=== PATIENT | female | born 1950 | race Caucasian/White ===

== ENCOUNTER 2019-06-10 16:07 | Inpatient (IN) | payer MEDICARE ==
[2019-06-10] MEDS ORDERED: SODIUM CHLORIDE 0.9% 500 ML 500 ML IV STA (16:31)
[2019-06-10] MEDS ORDERED: SODIUM CHLORIDE 0.9% 1,000 ML IV STA (16:31)
[2019-06-10] MEDS ORDERED: MORPHINE SULFATE 4 MG/ML SYRINGE IV STA (16:31)
[2019-06-10] MEDS ORDERED: PANTOPRAZOLE 40 MG/10 ML VIAL IVP STA (16:31)
[2019-06-10] MEDS ORDERED: ONDANSETRON 4 MG/2 ML VIAL IVP STA (16:31)
[2019-06-10 17:02] LABS: Basophils % (A) 1 %; Eosinophils # (A) 0.1 k/uL (0-0.7); Eosinophils % (A) 1 %; HGB 14.2 gm/dL (11.4-16.0); Lymphocytes # (A) 1.1 k/uL (1.0-4.8); Lymphocytes % (A) 24 %; MCH 36.5 pg (25.0-35.0); MCHC 35.5 g/dL (31.0-37.0); MCV 102.8 fL (80.0-100.0); Macrocytosis Slight; Mean Platelet Volume 7.2; Monocytes # (A) 0.4 k/uL (0-1.0); Monocytes % (A) 8 %; Neutrophils # (A) 3.1 k/uL (1.3-7.7); Neutrophils % (A) 63 %; Platelet Count 178 k/uL (150-450); RBC 3.89 m/uL (3.80-5.40); RDW 14.1 % (11.5-15.5); WBC 4.8 k/uL (3.8-10.6)
[2019-06-10 17:14] LABS: ALT 75 U/L (9-52); AST 150 U/L (14-36); African American GFR (CKD) >90 (>60 ml/min/1.73 sqM); Albumin 4.9 g/dL (3.5-5.0); Alkaline Phosphatase 78 U/L (38-126); Amylase 82 U/L (30-110); Anion Gap 18 mmol/L; Blood Urea Nitrogen 3 mg/dL (7-17); Calcium 9.7 mg/dL (8.4-10.2); Carbon Dioxide 24 mmol/L (22-30); Chloride 93 mmol/L (98-107); Creatine Kinase 78 U/L (30-135); Glucose 106 mg/dL (74-99); Non-African American GFR(CKD) >90 (>60 ml/min/1.73 sqM); Potassium 4.2 mmol/L (3.5-5.1); Sodium 135 mmol/L (137-145); Total Bilirubin 0.9 mg/dL (0.2-1.3); Total Protein 8.2 g/dL (6.3-8.2)
--- NOTE | 2019-06-10 17:14 | ED ---
Abdominal Pain HPI - General Chief Complaint: Abdominal Pain Stated Complaint: Abd pain Time Seen by Provider: 06/10/19 16:31 Source: patient Mode of arrival: ambulatory Limitations: no limitations - History of Present Illness Initial Comments: This is a 68-year-old female the ER for evaluation sent in to ER for evaluation further by her primary care. Patient's but in with abdominal pain. No history of abdominal surgery, she does have history of pancreatitis. Patient's complaining of severe anterior abdominal pain with nausea no vomiting. No bowel movements today denies fever. Feels like she has significant abdominal bloating, diffuse tenderness all over her abdomen. Does not quite feel like prior pancreatitis. No significant history of colonoscopy. No current diarrhea MD Complaint: abdominal pain -: hour(s) Location: diffuse Radiation: epigastric, suprapubic Migration to: no migration Severity: severe Severity scale (1-10): 8 Quality: cramping, stabbing, aching Consistency: constant Improves With: eating, bowel movement Worsens With: eating, bowel movement Context: recent surgery/procedure Associated Symptoms: denies other symptoms, nausea, vomiting - Related Data Home Medications Medication Instructions Recorded Confirmed Albuterol Sulfate [Proair Hfa] 1 - 2 puff INHALATION RT-Q6H PRN 06/10/19 06/10/19 Lisinopril 20 mg PO DAILY 06/10/19 06/10/19 Metoprolol Tartrate 25 mg PO HS 06/10/19 06/10/19 Milk Thistle 150 mg PO DAILY 06/10/19 06/10/19 [place]-3 Fatty Acids/Fish Oil [Fish 1 cap PO BID 06/10/19 06/10/19 Oil 1,000 mg Softgel] Omeprazole 20 mg PO DAILY PRN 06/10/19 06/10/19 Simvastatin [Zocor] 40 mg PO HS 06/10/19 06/10/19 Allergies Allergy/AdvReac Type Severity Reaction Status Date / Time No Known Allergies Allergy Verified 06/10/19 16:51 Review of Systems ROS Statement: Those systems with pertinent positive or pertinent negative responses have been documented in the HPI. ROS Other: All systems not noted in ROS Statement are negative. Past Medical History Past Medical History: Hyperlipidemia, Hypertension History of Any Multi-Drug Resistant Organisms: None Reported Past Surgical History: Hysterectomy, Tubal Ligation Past Psychological History: No Psychological Hx Reported Smoking Status: Former smoker Past Alcohol Use History: Occasional Past Drug Use History: None Reported General Exam Limitations: no limitations General appearance: alert, in no apparent distress Head exam: Present: atraumatic, normocephalic, normal inspection Eye exam: Present: normal appearance, PERRL, EOMI. Absent: scleral icterus, conjunctival injection, periorbital swelling ENT exam: Present: normal exam, mucous membranes moist Neck exam: Present: normal inspection. Absent: tenderness, meningismus, lymphadenopathy Respiratory exam: Present: normal lung sounds bilaterally. Absent: respiratory distress, wheezes, rales, rhonchi, stridor Cardiovascular Exam: Present: regular rate, normal rhythm, normal heart sounds. Absent: systolic murmur, diastolic murmur, rubs, gallop, clicks GI/Abdominal exam: Present: soft, normal bowel sounds. Absent: distended, tenderness, guarding, rebound, rigid Extremities exam: Present: normal inspection, full ROM, normal capillary refill. Absent: tenderness, pedal edema, joint swelling, calf tenderness Back exam: Present: normal inspection Neurological exam: Present: alert, oriented X3, CN II-XII intact Psychiatric exam: Present: normal affect, normal mood Skin exam: Present: warm, dry, intact, normal color. Absent: rash Course Vital Signs 06/10/19 06/10/19 16:16 17:09 Temperature 98.8 F Pulse Rate 81 80 Respiratory 18 18 Rate Blood Pressure 154/89 150/76 O2 Sat by Pulse 96 96 Oximetry - Reevaluation(s) Reevaluation #1: 06/10/19 17:14 Medical records reviewed Reevaluation #2: 06/10/19 19:13 Patient still complaining of abdominal pain Medical Decision Making - Medical Decision Making 68 female the ER history percutaneous coming in for abdominal pain, CT imaging does show positive edema pancreatic head, mild pancreatitis. Patient will be admitted for hydration and by mouth - Lab Data Result diagrams: 06/10/19 16:46 06/10/19 16:46 Lab Results 06/10/19 06/10/19 06/10/19 Range/Units 16:46 16:46 16:46 WBC 4.8 (3.8-10.6) k/uL RBC 3.89 (3.80-5.40) m/uL Hgb 14.2 (11.4-16.0) gm/dL Hct 40.0 (34.0-46.0) % MCV 102.8 H (80.0-100.0) fL MCH 36.5 H (25.0-35.0) pg MCHC 35.5 (31.0-37.0) g/dL RDW 14.1 (11.5-15.5) % Plt Count 178 (150-450) k/uL Neutrophils % 63 % Lymphocytes % 24 % Monocytes % 8 % Eosinophils % 1 % Basophils % 1 % Neutrophils # 3.1 (1.3-7.7) k/uL Lymphocytes # 1.1 (1.0-4.8) k/uL Monocytes # 0.4 (0-1.0) k/uL Eosinophils # 0.1 (0-0.7) k/uL Basophils # 0.0 (0-0.2) k/uL Macrocytosis Slight Sodium 135 L (137-145) mmol/L Potassium 4.2 (3.5-5.1) mmol/L Chloride 93 L (98-107) mmol/L Carbon Dioxide 24 (22-30) mmol/L Anion Gap 18 mmol/L BUN 3 L (7-17) mg/dL Creatinine 0.59 (0.52-1.04) mg/dL Est GFR (CKD-EPI)AfAm >90 (>60 ml/min/1.73 sqM) Est GFR (CKD-EPI)NonAf >90 (>60 ml/min/1.73 sqM) Glucose 106 H (74-99) mg/dL Plasma Lactic Acid Julio Cesar 2.1 H* (0.7-2.0) mmol/L Calcium 9.7 (8.4-10.2) mg/dL Total Bilirubin 0.9 (0.2-1.3) mg/dL AST 150 H (14-36) U/L ALT 75 H (9-52) U/L Alkaline Phosphatase 78 (38-126) U/L Creatine Kinase 78 (30-135) U/L Troponin I (0.000-0.034) ng/mL Total Protein 8.2 (6.3-8.2) g/dL Albumin 4.9 (3.5-5.0) g/dL Amylase 82 (30-110) U/L Lipase 280 (23-300) U/L Urine Color Urine Appearance (Clear) Urine pH (5.0-8.0) Ur Specific [place] (1.001-1.035) Urine Protein (Negative) Urine Glucose (UA) (Negative) Urine Ketones (Negative) Urine Blood (Negative) Urine Nitrite (Negative) Urine Bilirubin (Negative) Urine Urobilinogen (<2.0) mg/dL Ur Leukocyte Esterase (Negative) 06/10/19 06/10/19 Range/Units 16:46 17:54 WBC (3.8-10.6) k/uL RBC (3.80-5.40) m/uL Hgb (11.4-16.0) gm/dL Hct (34.0-46.0) % MCV (80.0-100.0) fL MCH (25.0-35.0) pg MCHC (31.0-37.0) g/dL RDW (11.5-15.5) % Plt Count (150-450) k/uL Neutrophils % % Lymphocytes % % Monocytes % % Eosinophils % % Basophils % % Neutrophils # (1.3-7.7) k/uL Lymphocytes # (1.0-4.8) k/uL Monocytes # (0-1.0) k/uL Eosinophils # (0-0.7) k/uL Basophils # (0-0.2) k/uL Macrocytosis Sodium (137-145) mmol/L Potassium (3.5-5.1) mmol/L Chloride (98-107) mmol/L Carbon Dioxide (22-30) mmol/L Anion Gap mmol/L BUN (7-17) mg/dL Creatinine (0.52-1.04) mg/dL Est GFR (CKD-EPI)AfAm (>60 ml/min/1.73 sqM) Est GFR (CKD-EPI)NonAf (>60 ml/min/1.73 sqM) Glucose (74-99) mg/dL Plasma Lactic Acid Julio Cesar (0.7-2.0) mmol/L Calcium (8.4-10.2) mg/dL Total Bilirubin (0.2-1.3) mg/dL AST (14-36) U/L ALT (9-52) U/L Alkaline Phosphatase (38-126) U/L Creatine Kinase (30-135) U/L Troponin I <0.012 (0.000-0.034) ng/mL Total Protein (6.3-8.2) g/dL Albumin (3.5-5.0) g/dL Amylase (30-110) U/L Lipase (23-300) U/L Urine Color Colorless Urine Appearance Clear (Clear) Urine pH 6.0 (5.0-8.0) Ur Specific [place] 1.008 (1.001-1.035) Urine Protein Negative (Negative) Urine Glucose (UA) Negative (Negative) Urine Ketones Negative (Negative) Urine Blood Negative (Negative) Urine Nitrite Negative (Negative) Urine Bilirubin Negative (Negative) Urine Urobilinogen <2.0 (<2.0) mg/dL Ur Leukocyte Esterase Negative (Negative) - Radiology Data Radiology results: report reviewed (CT abdomen and pelvis is consistent for pancreatitis), image reviewed Disposition Clinical Impression: Pancreatitis, Abdominal pain Disposition: ADMITTED IP TO THIS [facility] Condition: Good Is patient prescribed a controlled substance at d/c from ED?: No Referrals: Pearl Stoner MD [Primary Care Provider] - 1-2 days
--- NOTE | 2019-06-10 17:39 | CT ---
EXAMINATION TYPE: CT abdomen pelvis w con DATE OF EXAM: 06/10/2019 COMPARISON: None HISTORY: Generalized pain with fever CT DLP: 824.2 mGycm Automated exposure control for dose reduction was used. TECHNIQUE: Helical acquisition of images was performed from the lung bases through the pelvis. CONTRAST: Performed without Oral Contrast and with IV Contrast, patient injected with 100 mL of Isovue 300. FINDINGS: Lung bases are clear. There is no pleural effusion. Heart size is normal. There is no pericardial eff usion. Stomach appears normal. Spleen appears normal. There is some fat stranding around the pancreatic head anteriorly. There is 17 mm hypodense focus superior right lobe of the liver. There is 3 cm hypodense focus superior posterior right lobe of the liver. The bile ducts are not dilated. Gallbladder appear s normal. There is no adrenal mass. Kidneys show satisfactory contrast opacification. There is no hydronephrosi s. Ureters are not dilated. There is 7 mm cortical cyst anterior left kidney. There are numerous sigmoid diverticula. Bladder distends smoothly. There is no inguinal hernia. There is no free fluid in the pelvis. Appendix is not definitely seen. There is no sign of thickened appen qamar. There is no evidence of a bowel obstruction. There is no ascites or free air. There are spondylo tic changes in the lumbar spine with disc space narrowing. There is no compression fracture. There is thoracolumbar levoscoliosis. Bony pelvis appears intact. IMPRESSION: THERE IS MILD EDEMA AROUND THE ANTERIOR ASPECT OF THE PANCREATIC HEAD. THIS COULD RELATE TO TUMOR OR PANCREATITIS. 2 HYPODENSE LIVER LESIONS HAVE LOW DENSITY OF 0 EQUAL TO WATER. THESE COULD BE LIVER ABSCESSES. HEPAT IC METASTATIC DISEASE NOT EXCLUDED. SIGMOID DIVERTICULOSIS WITHOUT DIVERTICULITIS.
[2019-06-10 18:19] LABS: Appearance,Urine Clear (Clear); Bilirubin,Urine Negative (Negative); Blood,Urine Negative (Negative); Color,Urine Colorless; Glucose,Urine (UA) Negative (Negative); Ketones,Urine Negative (Negative); Leukocyte Esterase,Urine Negative (Negative); Nitrite,Urine Negative (Negative); Protein,Urine Negative (Negative); Specific Gravity,Urine 1.008 (1.001-1.035); Urobilinogen,Urine <2.0 mg/dL (<2.0)
[2019-06-10] MEDS ORDERED: SODIUM CHLORIDE 0.9% 1,000 ML IV ONE (19:12)
[2019-06-10] MEDS ORDERED: ALBUTEROL NEBULIZED 2.5 MG/3 ML INHALATION PRN (22:06)
[2019-06-10] MEDS ORDERED: HYDROmorphone 0.5 MG/0.5 ML SYRINGE IVP PRN (22:10)
[2019-06-10] MEDS ORDERED: ONDANSETRON 4 MG/2 ML VIAL IVP PRN (22:11)
[2019-06-10] MEDS: SODIUM CHLORIDE 0.9% 1,000 ML IV SCH (22:21)
[2019-06-11] MEDS: SODIUM CHLORIDE 0.9% 1,000 ML IV SCH ×2 (07:52→20:01)
[2019-06-11] MEDS: LISINOPRIL 20 MG TAB PO SCH (07:53)
[2019-06-11] MEDS ORDERED: NON FORMULARY DRUG (Omega-3 Fatty Acids/Fish Oil [Fish Oil 1,000 Mg Softgel] 1 CAP) PO SCH (09:00)
[2019-06-11] MEDS ORDERED: PANTOPRAZOLE 40 MG TABLET PO PRN (09:00)
[2019-06-11] MEDS ORDERED: MILK THISTLE 1000 MG PO SCH (09:00)
[2019-06-11 09:08] LABS: ALT 63 U/L (9-52); AST 111 U/L (14-36); African American GFR (CKD) >90 (>60 ml/min/1.73 sqM); Albumin 3.6 g/dL (3.5-5.0); Alkaline Phosphatase 62 U/L (38-126); Anion Gap 9 mmol/L; Blood Urea Nitrogen 3 mg/dL (7-17); Calcium 8.8 mg/dL (8.4-10.2); Carbon Dioxide 28 mmol/L (22-30); Chloride 100 mmol/L (98-107); Glucose 89 mg/dL (74-99); Non-African American GFR(CKD) >90 (>60 ml/min/1.73 sqM); Potassium 4.5 mmol/L (3.5-5.1); Sodium 137 mmol/L (137-145); Total Bilirubin 1.2 mg/dL (0.2-1.3); Total Protein 6.4 g/dL (6.3-8.2)
[2019-06-11 10:02] VITALS: BMI 25.7
[2019-06-11] MEDS ORDERED: ACETAMINOPHEN TAB 325 MG TAB PO PRN (10:06)
[2019-06-11] MEDS ORDERED: traMADol 50 MG TAB PO PRN (11:50)
--- NOTE | 2019-06-11 11:58 | P.HPIM ---
History of Present Illness 68-year-old pleasant female came in with compensative abdominal pain in the epigastric area. Initially started in the lower abdomen sharp in nature went up patient does have tenderness in epigastric area patient the pain yesterday was burning sensation on and off pain severe 10/10 in severity but presently her pain is better. Patient was on morphine which I'll switch to tramadol. Patient had a CAT scan of the abdomen which showed some edema of the pancreas patient is admitted for pancreatitis although lipase and amylase are essentially within normal notes patient does have history of alcohol use history and patient does d rink about 4 beers and 2 neetu every day. Patient occasionally have shakes as well. Patient's pain is not related to food denied any nausea vomiting. Patient also had an incidental finding of couple lesions in the liver which is suspicious for cancer in abscess because of which I'm obtaining MRCP and also obtaining consultation from enterology patient liver enzymes are bit elevated, probably because of alcoholic hepatitis and the AST and ALT ratio is consistent with that. Patient is receiving IV fluids patient was started back on diet. I'll also obtain CA-19-9 with concerns of masses in the pancreas as well. Review of Systems REVIEW OF SYSTEMS: CONSTITUTIONAL: No fever, no malaise, no fatigue. HEENT: No recent visual problems or hearing problems. Denied any sore throat. CARDIOVASCULAR: No chest pain, orthopnea, PND, no palpitations, no syncope. PULMONARY: No shortness of breath, no cough, no hemoptysis. GASTROINTESTINAL: As mentioned in HPI NEUROLOGICAL: No headaches, no weakness, no numbness. HEMATOLOGICAL: Denies any bleeding or petechiae. GENITOURINARY: Denies any burning micturition, frequency, or urgency. MUSCULOSKELETAL/RHEUMATOLOGICAL: Denies any joint pain, swelling, or any muscle pain. ENDOCRINE: Denies any polyuria or polydipsia. The rest of the 14-point review of systems is negative. Past Medical History Past Medical History: GERD/Reflux, Hyperlipidemia, Hypertension, Rheumatoid Arthritis (RA) Additional Past Medical History / Comment(s): Pancreatitis,COPD, ex-smoker, History of Any Multi-Drug Resistant Organisms: None Reported Past Surgical History: Hysterectomy, Tubal Ligation Additional Past Surgical History / Comment(s): One ovary removed, stomach muscles repaired, Past Anesthesia/Blood Transfusion Reactions: No Reported Reaction Past Psychological History: No Psychological Hx Reported Additional Psychological History / Comment(s): Patient lives in own home. Independent. Son helps with groceries. Smoking Status: Former smoker Past Alcohol Use History: Daily Additional Past Alcohol Use History / Comment(s): Patient drinks 4 beers and 1 glass of wine every day. Past Drug Use History: None Reported - Past Family History Father Family Medical History: Cancer Additional Family Medical History / Comment(s): Throat cancer and . Mother Additional Family Medical History / Comment(s): Brain aneurysm and . Son(s) Family Medical History: Hypertension Additional Family Medical History / Comment(s): Oldest son has HTN. Medications and Allergies Home Medications Medication Instructions Recorded Confirmed Type Albuterol Sulfate [Proair Hfa] 1 - 2 puff INHALATION RT-Q6H PRN 06/10/19 06/10/19 History Lisinopril 20 mg PO DAILY 06/10/19 06/10/19 History Metoprolol Tartrate 25 mg PO HS 06/10/19 06/10/19 History Milk Thistle 1,000 mg PO DAILY 06/10/19 06/10/19 History [place]-3 Fatty Acids/Fish Oil [Fish 1 cap PO BID 06/10/19 06/10/19 History Oil 1,000 mg Softgel] Omeprazole 20 mg PO DAILY PRN 06/10/19 06/10/19 History Simvastatin [Zocor] 40 mg PO HS 06/10/19 06/10/19 History Allergies Allergy/AdvReac Type Severity Reaction Status Date / Time No Known Allergies Allergy Verified 06/10/19 16:51 Physical Exam Vitals: Vital Signs Temp Pulse Pulse Resp BP BP Pulse Ox 06/11/19 03:58 98 F 73 16 119/69 95 06/10/19 21:51 98.4 F 78 16 159/83 97 06/10/19 20:25 98.6 F 86 18 142/78 98 06/10/19 18:00 82 16 145/80 98 06/10/19 17:09 80 18 150/76 96 06/10/19 16:16 98.8 F 81 18 154/89 96 Intake and Output 06/10/19 06/11/19 06/11/19 22:59 06:59 14:59 Intake Total 600 Balance 600 Intake: Intake, IV Titration 600 Amount Sodium Chloride 0.9% 1, 600 000 ml @ 75 mls/hr IV . [id number] [facility] Rx#:[id number] Other: Voiding Method Toilet # Voids 1 Weight 70.307 kg 70.307 kg PHYSICAL EXAMINATION: GENERAL: The patient is alert and oriented x3, not in any acute distress. Well developed, well nourished. HEENT: Pupils are round and equally reacting to light. EOMI. No scleral icterus. No conjunctival pallor. Normocephalic, atraumatic. No pharyngeal erythema. No thyromegaly. CARDIOVASCULAR: S1 and S2 present. No murmurs, rubs, or gallops. PULMONARY: Chest is clear to auscultation, no wheezing or crackles. ABDOMEN: Soft, epigastric abdominal tenderness. Bowel sounds are present no hepatosplenomegaly MUSCULOSKELETAL: No joint swelling or deformity. EXTREMITIES: No cyanosis, clubbing, or pedal edema. NEUROLOGICAL: Gross neurological examination did not reveal any focal deficits. SKIN: No rashes. Results CBC & Chem 7: 06/10/19 16:46 06/11/19 07:43 Labs: Abnormal Lab Results - Last 24 Hours (Table) 06/10/19 06/10/19 06/10/19 Range/Units 16:46 16:46 16:46 MCV 102.8 H (80.0-100.0) fL MCH 36.5 H (25.0-35.0) pg Sodium 135 L (137-145) mmol/L Chloride 93 L (98-107) mmol/L BUN 3 L (7-17) mg/dL Glucose 106 H (74-99) mg/dL Plasma Lactic Acid Julio Cesar 2.1 H* (0.7-2.0) mmol/L AST 150 H (14-36) U/L ALT 75 H (9-52) U/L 06/11/19 Range/Units 07:43 MCV (80.0-100.0) fL MCH (25.0-35.0) pg Sodium (137-145) mmol/L Chloride (98-107) mmol/L BUN 3 L (7-17) mg/dL Glucose (74-99) mg/dL Plasma Lactic Acid Julio Cesar (0.7-2.0) mmol/L AST 111 H (14-36) U/L ALT 63 H (9-52) U/L Thrombosis Risk Factor Assmnt - Choose All That Apply Each Factor Represents 1 point: Abnormal pulmonary function (COPD), Obesity (BMI >25) Each Risk Factor Represents 2 Points: Age 61-74 years Thrombosis Risk Factor Assessment Total Risk Factor Score: 4 Thrombosis Risk Factor Assessment Level: Moderate Risk Assessment and Plan Plan: -Epigastric abdominal burning sensation and pain mostly related to peptic ulcer disease or gastritis patient will be continued on Protonix and avoid nonsteroidal anti-inflammatory as there is no evidence of pancreatitis as amylase and lipase are essentially within normal limits. Although malignancy cannot be ruled out in the pancreas or liver because of which I'm obtaining MRCP and CA-19-9 to better characterize the lesions of the liver and pancreas. This may be causing her pain as well. We'll use tramadol for pain discontinued Dilaudid. -Elevated liver enzymes probably secondary to alcoholic Pedis -alcohol abuse and patient will be monitored for any withdrawals if she has any withdrawals this will be managed accordingly will order thiamine multivitamin supplementation -Alcoholic gastritis -Hyperlipidemia -Hypertension
[2019-06-11] MEDS: HYDROcodone/APAP 5-325MG 1 EACH TAB PO PRN ×2 (13:08→20:00)
[2019-06-11] MEDS ORDERED: ATORVASTATIN 20 MG TAB PO SCH (21:00)
[2019-06-11] MEDS ORDERED: METOPROLOL TARTRATE 25 MG TAB PO SCH (21:00)
--- NOTE | 2019-06-11 22:03 | P.CONS ---
History of Present Illness - Reason for Consult Consult date: 06/11/19 Pancreatitis Requesting physician: Anastasiia Ybarra - Chief Complaint Abdominal pain - History of Present Illness 68-year-old female with a medical history significant for hyperlipidemia, hypertension, and prior episode of pancreatitis who presented to the hospital from her PCPs office due to complaints of abdominal pain. The patient reports abdominal pain described as sharp in the lower abdomen and epigastric region, severe in intensity and waxing and waning. The patient also had the sensation of epigastric burning. She reports that this was similar to a prior episode of pancreatitis 15 years ago. At that time she reports triglycerides were found to be markedly elevated. She denies any family history of pancreatitis. She does have a history of daily alcohol use reporting consumption of beer and wine daily. She denies any tobacco abuse. She does report nausea in association with abdominal pain without vomiting. She also reports some loose stool today. Laboratory evaluation on presentation was significant for a WBC 4.8, hemoglobin 14.2, bili 178,000, Total Bilirubin 1.2, Alkaline Phosphatase 62, AST 111, ALT 63, Amylase 82 and Lipase 280. Computed Tomography Scan of the Abdomen Mild Inflammation of the Pancreatic Head with a Mass Not Excluded As Well As Hypodense Liver Lesions and Diverticulosis. Currently the Patient Is Seen Lying in Bed Reporting That She Is Feeling Better. Review of Systems REVIEW OF SYSTEMS: CONSTITUTIONAL: Denies any fevers, chills, weight change or fatigue. CARDIOVASCULAR: Denies any chest pain, palpitations high or low blood pressures RESPIRATORY: Denies any shortness of breath, hemoptysis or cough. GENITOURINARY: No dysuria or hematuria. MUSCULOSKELETAL: No weakness reported. SKIN: Denies any new rashes or lesions, jaundice or pallor. PSYCHIATRIC: Denies any depression or anxiety. NEUROLOGY: Denies headache, denies any new focal deficits. EARS/NOSE/THROAT: No recent hearing change, congestion, nasal discharge or sore throat. EYES: No pain in eyes, discharge or change in vision. GASTROINTESTINAL: As per HPI. Past Medical History Past Medical History: GERD/Reflux, Hyperlipidemia, Hypertension, Rheumatoid Arthritis (RA) Additional Past Medical History / Comment(s): Pancreatitis,COPD, ex-smoker, History of Any Multi-Drug Resistant Organisms: None Reported Past Surgical History: Hysterectomy, Tubal Ligation Additional Past Surgical History / Comment(s): One ovary removed, stomach muscles repaired, Past Anesthesia/Blood Transfusion Reactions: No Reported Reaction Past Psychological History: No Psychological Hx Reported Additional Psychological History / Comment(s): Patient lives in own home. Independent. Son helps with groceries. Smoking Status: Former smoker Past Alcohol Use History: Daily Additional Past Alcohol Use History / Comment(s): Patient drinks 4 beers and 1 glass of wine every day. Past Drug Use History: None Reported - Past Family History Father Family Medical History: Cancer Additional Family Medical History / Comment(s): Throat cancer and . Mother Additional Family Medical History / Comment(s): Brain aneurysm and . Son(s) Family Medical History: Hypertension Additional Family Medical History / Comment(s): Oldest son has HTN. Medications and Allergies Home Medications Medication Instructions Recorded Confirmed Type Albuterol Sulfate [Proair Hfa] 1 - 2 puff INHALATION RT-Q6H PRN 06/10/19 06/10/19 History Lisinopril 20 mg PO DAILY 06/10/19 06/10/19 History Metoprolol Tartrate 25 mg PO HS 06/10/19 06/10/19 History Milk Thistle 1,000 mg PO DAILY 06/10/19 06/10/19 History [place]-3 Fatty Acids/Fish Oil [Fish 1 cap PO BID 06/10/19 06/10/19 History Oil 1,000 mg Softgel] Omeprazole 20 mg PO DAILY PRN 06/10/19 06/10/19 History Simvastatin [Zocor] 40 mg PO HS 06/10/19 06/10/19 History Allergies Allergy/AdvReac Type Severity Reaction Status Date / Time No Known Allergies Allergy Verified 06/10/19 16:51 Physical Exam Vitals: Vital Signs Temp Pulse Pulse Resp BP BP Pulse Ox 06/11/19 03:58 98 F 73 16 119/69 95 06/10/19 21:51 98.4 F 78 16 159/83 97 06/10/19 20:25 98.6 F 86 18 142/78 98 06/10/19 18:00 82 16 145/80 98 06/10/19 17:09 80 18 150/76 96 06/10/19 16:16 98.8 F 81 18 154/89 96 Intake and Output 06/10/19 06/11/19 06/11/19 22:59 06:59 14:59 Intake Total 600 Balance 600 Intake: Intake, IV Titration 600 Amount Sodium Chloride 0.9% 1, 600 000 ml @ 75 mls/hr IV . [id number] [facility] Rx#:[id number] Other: Voiding Method Toilet # Voids 1 Weight 70.307 kg 70.307 kg On physical examination, patient appears comfortable in no apparent distress. HEAD: Normocephalic, atraumatic. EYES: No scleral icterus. No conjunctival injection. MOUTH: No lesions, tongue midline. NECK: Trachea midline, no gross abnormalities. CHEST: Clear to auscultation with no wheezing or rhonchi appreciated. HEART: Regular rate and rhythm. ABDOMEN: Soft, tender to palpation. Bowel sounds are positive. No organomegaly. No guarding or rigidity. EXTREMITIES: No pedal edema. SKIN: No rashes, no jaundice. NEUROLOGIC: Alert and oriented x3. No focal deficits. What Results CBC & Chem 7: 06/10/19 16:46 06/11/19 07:43 Labs: Abnormal Lab Results - Last 24 Hours (Table) 06/10/19 06/10/19 06/10/19 Range/Units 16:46 16:46 16:46 MCV 102.8 H (80.0-100.0) fL MCH 36.5 H (25.0-35.0) pg Sodium 135 L (137-145) mmol/L Chloride 93 L (98-107) mmol/L BUN 3 L (7-17) mg/dL Glucose 106 H (74-99) mg/dL Plasma Lactic Acid Julio Cesar 2.1 H* (0.7-2.0) mmol/L AST 150 H (14-36) U/L ALT 75 H (9-52) U/L 06/11/19 Range/Units 07:43 MCV (80.0-100.0) fL MCH (25.0-35.0) pg Sodium (137-145) mmol/L Chloride (98-107) mmol/L BUN 3 L (7-17) mg/dL Glucose (74-99) mg/dL Plasma Lactic Acid Julio Cesar (0.7-2.0) mmol/L AST 111 H (14-36) U/L ALT 63 H (9-52) U/L CT scan - abdomen: report reviewed (Computed Tomography Scan of the Abdomen Mild Inflammation of the Pancreatic Head with a Mass Not Excluded As Well As Hyp odense Liver Lesions and Diverticulosis.) Assessment and Plan (1) Pancreatitis Narrative/Plan: 68-year-old female with a prior history of pancreatitis and other comorbidities who presented to the hospital with complaints of abdominal pain. Amylase and lipase were normal however inflammation seen in the pancreatic head with mass not excluded. She did have CA 199 testing which was negative. MRI/MRCP is planned for tomorrow. She is a prior history of pancreatitis during which she reports triglycerides are extremely high. She also reports daily alcohol use with probable wine and beer. Liver enzymes essentially normal with total bilirubin 1.2, alkaline phosphatase 62, AST 111 and ALT 63. Current Visit: Yes Status: Acute Code(s): K85.90 - ACUTE PANCREATITIS WITHOUT NECROSIS OR INFECTION, UNSP SNOMED Code(s): 11175791 (2) Abdominal pain Current Visit: Yes Status: Acute Code(s): R10.9 - UNSPECIFIED ABDOMINAL PAIN SNOMED Code(s): 59607129 Plan: Supportive care Clear liquid diet, advance as tolerated Continue IV fluid hydration Continue pain control Alcohol abstinence Continue monitor CBC, CMP, liver enzymes [place] 1919 reviewed and normal Will order DARRELL, IgG4 levels and triglyceride levels MRI abdomen pending Thank you for allowing us to participate in the care of the patient, we will continue to follow
[2019-06-12] MEDS: HYDROcodone/APAP 5-325MG 1 EACH TAB PO PRN ×3 (00:03→13:33)
[2019-06-12] MEDS ORDERED: THIAMINE 100 MG TAB PO SCH (09:00)
[2019-06-12] MEDS: LISINOPRIL 20 MG TAB PO SCH (09:23)
--- NOTE | 2019-06-12 12:12 | P.PN ---
Subjective Progress Note Date: 06/12/19 Principal diagnosis: abdominal pain pancreatitis abnormal CT abdomen Still experiencing upper abdominal discomfort. Afebrile. Scheduled for MRI liver with and without contrast today. CT reported features of pancreatitis and right lobe liver lesions. Yesterday total bilirubin 1.2. AST 111. ALT 63. AP 62. CA-19-9 22. Afebrile. Objective - Vital Signs Vital signs: Vital Signs Temp 98.1 F 06/12/19 04:39 Pulse 72 06/12/19 04:39 Resp 16 06/12/19 04:39 BP 120/62 06/12/19 04:39 Pulse Ox 94 L 06/12/19 04:39 Intake & Output 06/11/19 06/12/19 06/12/19 18:59 06:59 18:59 Intake Total 840 225 Balance 840 225 Weight 70.307 kg Intake: Intake, IV Titration 600 225 Amount Sodium Chloride 0.9% 1, 600 225 000 ml @ 75 mls/hr IV . [id number] [facility] Rx#:[id number] Oral 240 Other: Voiding Method Toilet Toilet # Voids 3 3 - Exam General appearance: The patient is alert, oriented, in no acute distress. HET: Head is normocephalic and atraumatic. Pupils are equal and reactive. Oropharynx is clear without lesions. Neck: Supple without lymphadenopathy. Trachea midline. Heart: S1 S2. Regular rate and rhythm. Lungs: No crackles or wheezes are heard. Abdomen: Soft, upper abdominal tenderness midepigatric, nondistended with bowel sounds. No peritoneal signs. No palpable organomegaly or masses. Extremities: Normal skin color and turgor. No cyanosis, rash, ulceration, clubbing, or edema. Radial and pedal pulses are 2/4 bilaterally. Neurological: No focal deficits. Strength and sensation are grossly intact. - Labs CBC & Chem 7: 06/10/19 16:46 06/11/19 07:43 Assessment and Plan (1) Abdominal pain Narrative/Plan: ACute abdominal pain with CT reportiing pancreatic head inflammation pancreatitis with right lobe liver lesions that need to be further characterized. MRI liver scheduled today. Current Visit: Yes Status: Acute Code(s): R10.9 - UNSPECIFIED ABDOMINAL PAIN SNOMED Code(s): 76963936 (2) Pancreatitis Current Visit: Yes Status: Acute Code(s): K85.90 - ACUTE PANCREATITIS WITHOUT NECROSIS OR INFECTION, UNSP SNOMED Code(s): 70750002 Plan: 1. CEA/AFP. 2. MRI. 3. Will continue to follow. Assessment and plan of care d/w Dr. Tejada
[2019-06-12 12:40] VITALS: BP 138/78; PULSE 113; RESP 17; TEMP 98.5
[2019-06-12] MEDS: SODIUM CHLORIDE 0.9% 1,000 ML IV SCH (13:34)
--- NOTE | 2019-06-12 15:17 | MR ---
EXAMINATION TYPE: MR liver wo/w con and mrcp DATE OF EXAM: 06/12/2019 COMPARISON: CT abdomen and pelvis 2 days earlier HISTORY: Generalized pain with fever, possible pancreatic mass and liver mass. CONTRAST: Standard multiplanar, multisequence MRI departmental protocol utilizing 7.5 mL intravenous Gadavist g adolinium contrast. Thin and thick slice MRCP imaging is performed. FINDINGS: Liver/gallbladder/pancreas/biliary system: Liver is overall normal in size, there is diffuse signal d ropout consistent with diffuse fatty infiltration which correlates with CT. There are 2 simple appear ing thin-walled cyst without enhancement in the right hepatic lobe, largest measures 3.1 x 2.6 cm axi al image 30. Gallbladder is felt within normal limits. Pancreas shows mild/moderate focal atrophy at level of pancreatic head. No worrisome solid or cystic mass is seen. There is no suspicious intrahepatic or extra hepatic biliary dilatation. Pancreatic duct is visualize d slightly more prominent in the pancreatic head but not suspiciously dilated. No obvious mass at the duodenal ampulla is seen. Other: Spleen and both adrenal glands are normal in size. There is simple appearing subcentimeter cys t anteriorly midpole of the left kidney coronal image 25. No hydronephrosis is evident bilaterally. S ome diverticula in the transverse and left colon are present. No CT evidence for acute diverticulitis . No suspicious bowel dilatation. No concerning abdominal fluid collection. Underlying levoconvex sco liosis centered at L2-L3 level. Disc space narrowing and heterogeneous endplate changes most prominen t right L2-L3 level but also seen at L4-L5 level. Multilevel spurring redemonstrated. IMPRESSION: No suspicious pancreatic mass or ductal dilatation. CT findings were most likely on basis of a mild focal acute pancreatitis. Correlate clinically. Diffuse fatty infiltration of liver with 2 simple appearing thin-walled cysts is confirmed on MRI.
--- NOTE | 2019-06-12 15:21 | P.PN ---
Subjective Progress Note Date: 06/12/19 Principal diagnosis: 68-year-old pleasant female came in with compensative abdominal pain in the epigastric area. Initially started in the lower abdomen sharp in nature went up patient does have tenderness in epigastric area patient the pain yesterday was burning sensation on and off pain severe 10/10 in severity but presently her pain is better. Patient was on morphine which I'll switch to tramadol. Patient had a CAT scan of the abdomen which showed some edema of the pancreas patient is admitted for pancreatitis although lipase and amylase are essentially within normal notes patient does have history of alcohol use history and patient does drink about 4 beers and 2 neetu every day. Patient occasionally have shakes as well. Patient's pain is not related to food denied any nausea vomiting. Patient also had an incidental finding of couple lesions in the liver which is suspicious for cancer in abscess because of which I'm obtaining MRCP and also obtaining consultation from gastro-enterology patient liver enzymes are bit elevated, probably because of alcoholic hepatitis and the AST and ALT ratio is consistent with that. Patient is receiving IV fluids patient was started back on diet. I'll also obtain CA-19-9 with concerns of masses in the pancreas as well. 06/12/2019 Patient is lying in bed in no acute distress. ALT/AST are slightly improved Patient is awaiting to go down for an MRI of the liver this morning. Patient is currently nothing by mouth and is asking when she can eat she states she feels hungry. Patient was on clear liquid diet last night and was tolerating well with no reports of vomiting or nausea. Patient states that she did have a bowel movement yesterday and it was diarrhea. Patient denies any blood noted in the stool. Patient states that she has occasional nausea when the mid epigastric pain increases. Patient denies any chest pain or shortness of breath at this time. Patient remains afebrile. GI is following. No acute overnight events. Objective - Vital Signs Vital signs: Vital Signs Temp 98.5 F 06/12/19 12:39 Pulse 113 H 06/12/19 12:39 Resp 17 06/12/19 12:39 BP 138/78 06/12/19 12:39 Pulse Ox 97 06/12/19 12:39 Intake & Output 06/11/19 06/12/19 06/12/19 18:59 06:59 18:59 Intake Total 840 225 Balance 840 225 Weight 70.307 kg Intake: Intake, IV Titration 600 225 Amount Sodium Chloride 0.9% 1, 600 225 000 ml @ 75 mls/hr IV . [id number] [facility] Rx#:[id number] Oral 240 Other: Voiding Method Toilet Toilet # Voids 3 3 1 - Exam GENERAL: The patient is alert and oriented x3, not in any acute distress. Well developed, well nourished. Vital signs are stable. Temp is 98.1F, pulse is 72, respirations are 16, blood pressure is 120/62, oxygen saturation is 94% on room air. HEENT: Pupils are round and equally reacting to light. EOMI. No scleral icterus. No conjunctival pallor. Normocephalic, atraumatic. No pharyngeal erythema. No thyromegaly. CARDIOVASCULAR: S1 and S2 present. No murmurs, rubs, or gallops. PULMONARY: Chest is clear to auscultation, no wheezing or crackles. ABDOMEN: Soft, mid-epigastric abdominal tenderness upon palpation. Bowel sounds are present no hepatosplenomegaly MUSCULOSKELETAL: No joint swelling or deformity. EXTREMITIES: No cyanosis, clubbing, or pedal edema. NEUROLOGICAL: Gross neurological examination did not reveal any focal deficits. SKIN: No rashes. - Labs CBC & Chem 7: 06/10/19 16:46 06/11/19 07:43 Assessment and Plan Assessment: -Epigastric abdominal burning sensation and pain mostly related to peptic ulcer disease or gastritis. patient will be continued on Protonix and is to avoid nonsteroidal anti-inflammatory as there is no evidence of pancreatitis as amylase and lipase are essentially within normal limits. Although malignancy cannot be ruled out in the pancreas or liver because of which I'm obtaining MRCP and CA-19-9 to better characterize the lesions of the liver and pancreas. This may be causing her pain as well. We'll use tramadol for pain discontinued Dilaudid. MRI of the liver was done this morning and currently pending. CA-19-9 was 22.1 -Elevated liver enzymes probably secondary to alcoholic hepatitis -alcohol abuse and patient will be monitored for any withdrawals if she has any withdrawals this will be managed accordingly will order thiamine multivitamin supplementation -Alcoholic gastritis -Hyperlipidemia -Hypertension Recommendations and discussion Recommend continue current educations, management, and symptomatic treatment. Will continue to monitor closely. Continue to watch for signs and symptoms of alcohol withdrawal and treat accordingly. GI is following. Patient underwent MRI of the liver today and report is currently pending. Patient may resume clear liquids as tolerated and advance slowly. Guarded prognosis. Further recommendations to follow. Possible discharge in 24-48 hours.
[2019-06-12 16:17] LABS: ALT 52 U/L (9-52); AST 77 U/L (14-36); African American GFR (CKD) >90 (>60 ml/min/1.73 sqM); Albumin 3.5 g/dL (3.5-5.0); Alkaline Phosphatase 55 U/L (38-126); Anion Gap 9 mmol/L; Blood Urea Nitrogen 3 mg/dL (7-17); Calcium 8.6 mg/dL (8.4-10.2); Carbon Dioxide 26 mmol/L (22-30); Chloride 101 mmol/L (98-107); Glucose 135 mg/dL (74-99); Non-African American GFR(CKD) >90 (>60 ml/min/1.73 sqM); Sodium 136 mmol/L (137-145); Total Bilirubin 0.8 mg/dL (0.2-1.3); Total Protein 6.1 g/dL (6.3-8.2); Triglycerides 53 mg/dL (<150)
[2019-06-12 23:20] LABS: Alpha Fetoprotein, Tumor Mkr 7.5 ng/mL (0.0-7.9); Carcinoembryonic Antigen 1.2 ng/mL (0.0-4.9)
[2019-06-13 12:45] LABS: IgG Subclass 3 34.9 mg/dL (11.0-85.0); IgG Subclass 4 6.7 mg/dL (3.0-175.0)
--- NOTE | 2019-06-13 22:41 | P.DS ---
Providers Date of admission: 06/10/19 19:12 Expected date of discharge: 06/12/19 Attending physician: Corona Jacinto Consults: 06/11/19 10:06 Consult Physician Routine Consulting Provider: Krzysztof Joseph Consult Reason/Comments: possible pancreatic mass Do you want consulting provider notified?: Yes Primary care physician: Pearl Stoner [facility] Course: Final diagnosis Abdominal pain in the epigastric area most likely related to peptic ulcer disease or gastritis. Elevated liver enzymes Alcohol abuse Alcoholic gastritis Hyperlipidemia Hypertension Discharge disposition Patient is being discharged in stable condition with guarded prognosis to home and patient will follow up with up primary care provider this week. Patient will follow up with GI in the outpatient setting. Total time taken is 35 minutes. History of present illness This is a 68 year old female who was recently admitted for abdominal pain in the mid epigastric area along with nausea and vomiting and was being closely monitored. Patient had a CT scan of the abdomen which showed some edema of the pancreas and patient was admitted for pancreatitis. Patient's liver enzymes were slightly elevated with amylase and lipase being essentially within normal limits. There was concern for liver lesions that were found on the scan that were suspicious for cancer and an MRCP of the liver was ordered. MRI of the liver today shows no suspicious pancreatic mass or ductal dilatation with diffuse fatty infiltration of liver with 2 simple appearing thin-walled cysts noted. Patient will follow up with GI in the outpatient setting. Patient would like to go home as she denies any nausea or vomiting and has tolerated advanced diet. Patient denies any chest pain, shortness of breath, or palpitations at this time. Patient remained afebrile. Discussed with the patient at length today about refraining from any alcohol intake upon discharge. Patient condition is currently stable with much improvement. Patient will go home on Prilosec 20 mg twice daily for one month and will follow up with pcp this week. Guarded prognosis. On exam vital signs are stable. BP is 138/78, pulse is 113, resp are 17, temp is 98.5F, and 02 is 97% on room air. Cardio S1, S2 are normal. Respiratory system shows clear upon auscultation. Abdomen is soft, non-distended, and mild tenderness of the mid epigastric area upon palpation. Nervous sytem shows no focal deficits and gait is steady. Please refer to medication reconciliation sheet for a list of medications. Patient Condition at Discharge: Good Plan - Discharge Summary Discharge Rx Participant: Yes New Discharge Prescriptions: New Thiamine [Vitamin B-1] 100 mg PO DAILY 30 Days #30 tab Continue [place]-3 Fatty Acids/Fish Oil [Fish Oil 1,000 mg Softgel] 1 cap PO BID Albuterol Sulfate [Proair Hfa] 1 - 2 puff INHALATION RT-Q6H PRN PRN Reason: Shortness Of Breath Milk Thistle 1,000 mg PO DAILY Simvastatin [Zocor] 40 mg PO HS Lisinopril 20 mg PO DAILY Metoprolol Tartrate 25 mg PO HS Changed Omeprazole 20 mg PO BID 30 Days #60 Discharge Medication List Albuterol Sulfate [Proair Hfa] 1 - 2 puff INHALATION RT-Q6H PRN 06/10/19 [History] Lisinopril 20 mg PO DAILY 06/10/19 [History] Metoprolol Tartrate 25 mg PO HS 06/10/19 [History] Milk Thistle 1,000 mg PO DAILY 06/10/19 [History] [place]-3 Fatty Acids/Fish Oil [Fish Oil 1,000 mg Softgel] 1 cap PO BID 06/10/19 [History] Simvastatin [Zocor] 40 mg PO HS 06/10/19 [History] Omeprazole 20 mg PO BID 30 Days #60 06/12/19 [Rx] Thiamine [Vitamin B-1] 100 mg PO DAILY 30 Days #30 tab 06/12/19 [Rx] Follow up Appointment(s)/Referral(s): Pearl Stoner MD [Primary Care Provider] - 1-2 days (Patient to call Dr. Stoner's office Saturday to schedule follow up appointment. The office is closed at time of discharge. ) Patient Instructions/Handouts: Thiamine (By mouth), Pancreatitis (DC), Acute Abdominal Pain (DC) Activity/Diet/Wound Care/Special Instructions: Activity limited until follow up continue current diet follow up with primary care provider this week. AVOID ALL ALCOHOL INTAKE avoid NSAIDS Discharge Disposition: HOME SELF-CARE
== END 2019-06-12 17:20 | disposition home or self-care (01) | DRG 392 ==
LOC: EC 16:07 → 3NMEDONC 19:12
PROVIDERS: ADMIT Hospitalist; ATTEND Hospitalist
DX: K29.20 Alcoholic gastritis without bleeding (principal); K27.9 Peptic ulcer, site unspecified, unspecified as acute or chronic, without hemorrhage or perforation; E78.5 Hyperlipidemia, unspecified; K70.10 Alcoholic hepatitis without ascites; F10.10 Alcohol abuse, uncomplicated; I10 Essential (primary) hypertension; J44.9 Chronic obstructive pulmonary disease, unspecified; K21.9 Gastro-esophageal reflux disease without esophagitis; K57.90 Diverticulosis of intestine, part unspecified, without perforation or abscess without bleeding; M06.9 Rheumatoid arthritis, unspecified; Z79.899 Other long term (current) drug therapy; Z80.8 Family history of malignant neoplasm of other organs or systems; Z82.49 Family history of ischemic heart disease and other diseases of the circulatory system; Z87.891 Personal history of nicotine dependence; Z90.710 Acquired absence of both cervix and uterus
CPT/HCPCS: 36415; 74177; 74183; 80053; 81003; 82105; 82150; 82378; 82550; 82787; 83605; 83690; 84478; 84484; 85025; 86038; 86301; 96361; 96374; 96375; 99285

== ENCOUNTER 2022-06-26 17:25 | Inpatient (IN) | payer MEDICARE ==
[2022-06-26 19:24] LABS: Basophils % (A) 0 %; Eosinophils # (A) 0.1 k/uL (0-0.7); Eosinophils % (A) 1 %; HCT 35.8 % (34.0-46.0); HGB 12.7 gm/dL (11.4-16.0); Lymphocytes # (A) 1.1 k/uL (1.0-4.8); Lymphocytes % (A) 13 %; MCH 38.1 pg (25.0-35.0); MCHC 35.6 g/dL (31.0-37.0); Macrocytosis Moderate; Mean Platelet Volume 8.7; Monocytes # (A) 0.5 k/uL (0-1.0); Monocytes % (A) 5 %; Neutrophils # (A) 6.4 k/uL (1.3-7.7); Neutrophils % (A) 77 %; Platelet Count 160 k/uL (150-450); RBC 3.35 m/uL (3.80-5.40); RDW 12.6 % (11.5-15.5); WBC 8.3 k/uL (3.8-10.6)
[2022-06-26 19:38] LABS: ALT 51 U/L (4-34); AST 190 U/L (14-36); African American GFR (CKD) >90 (>60 ml/min/1.73 sqM); Albumin 3.3 g/dL (3.5-5.0); Alkaline Phosphatase 135 U/L (38-126); Amylase 70 U/L (30-110); Anion Gap 16 mmol/L; Blood Urea Nitrogen 3 mg/dL (7-17); Calcium 7.7 mg/dL (8.4-10.2); Carbon Dioxide 19 mmol/L (22-30); Glucose 116 mg/dL (74-99); Lipase 244 U/L (23-300); Non-African American GFR(CKD) >90 (>60 ml/min/1.73 sqM); Potassium 4.7 mmol/L (3.5-5.1); Total Bilirubin 6.6 mg/dL (0.2-1.3); Total Protein 6.9 g/dL (6.3-8.2)
[2022-06-26 19:52] LABS: Chloride 71 mmol/L (98-107); Sodium 106 mmol/L (137-145)
[2022-06-26] MEDS ORDERED: SODIUM CHLORIDE 0.9% 1,000 ML IV SCH (21:00)
[2022-06-26] MEDS ORDERED: SODIUM CHLORIDE 0.9% 500 ML 500 ML IV ONE (21:07)
--- NOTE | 2022-06-26 21:09 | ED ---
Abdominal Pain HPI - General Chief Complaint: Abdominal Pain Stated Complaint: Nausea,loss of appetite,vomiting Time Seen by Provider: 06/26/22 20:46 Source: patient, RN notes reviewed Mode of arrival: wheelchair Limitations: no limitations - History of Present Illness Initial Comments: This is a pleasant 71-year-old female who presents to the waiting room. Patient brought in by her son. Patient states that she has had nausea and vomiting for about one month. She has also had diminished bowel movements and progressively distended abdomen. Patient also states she is too weak to stand. Positive fatigue,No headache, no fever or chills, no changes in vision or hearing, no sore throat or difficulty with speech, no neck pain, no chest pain or shortness of breath, no abdominal pain no hematemesis or coffee-ground emesis. Diminished urination with small bowel movements. no numbness or tingling, no extremity pain, no skin rashes or lesions. Past medical, surgical, social, and family history reviewed. MD Complaint: abdominal pain - Related Data Home Medications Medication Instructions Recorded Confirmed Albuterol Sulfate [Proair Hfa] 1 - 2 puff INHALATION RT-Q6H PRN 06/10/19 06/26/22 Metoprolol Tartrate 25 mg PO DAILY 06/10/19 06/26/22 Milk Thistle 150 mg PO DAILY 06/10/19 06/26/22 [place]-3 Fatty Acids/Fish Oil [Fish 1 cap PO BID 06/10/19 06/26/22 Oil 1,000 mg Softgel] lisinopriL 20 mg PO DAILY 06/10/19 06/26/22 Metoprolol Tartrate [Lopressor] 25 mg PO HS PRN 06/26/22 06/26/22 Omeprazole 20 mg PO DAILY 06/26/22 06/26/22 Allergies Allergy/AdvReac Type Severity Reaction Status Date / Time No Known Allergies Allergy Verified 06/26/22 22:36 Review of Systems ROS Statement: Those systems with pertinent positive or pertinent negative responses have been documented in the HPI. ROS Other: All systems not noted in ROS Statement are negative. Past Medical History Past Medical History: COPD, GERD/Reflux, Hyperlipidemia, Hypertension, Rheumatoid Arthritis (RA) Additional Past Medical History / Comment(s): Pancreatitis History of Any Multi-Drug Resistant Organisms: None Reported Past Surgical History: Hysterectomy, Tubal Ligation Additional Past Surgical History / Comment(s): One ovary removed, stomach musc les repaired, Past Anesthesia/Blood Transfusion Reactions: No Reported Reaction Past Psychological History: No Psychological Hx Reported Smoking Status: Former smoker Past Alcohol Use History: Daily Past Drug Use History: None Reported - Past Family History Father Family Medical History: Cancer Additional Family Medical History / Comment(s): Throat cancer and . Mother Additional Family Medical History / Comment(s): Brain aneurysm and . Son(s) Family Medical History: Hypertension Additional Family Medical History / Comment(s): Oldest son has HTN. General Exam - General Exam Comments Initial Comments: This is an ill-appearing 71-year-old female in mild distress. Patient appears to be pale. Capillary refill is approximately 4 seconds. Abdomen is distended. Cranial nerves II through XII grossly intact. Patient able to give me an adequate history despite condition. Limitations: no limitations General appearance: alert, in distress Eye exam: Present: PERRL, EOMI, scleral icterus, periorbital tenderness. Absent: conjunctival injection, periorbital swelling ENT exam: Present: normal exam, normal oropharynx, mucous membranes moist, normal external ear exam Neck exam: Present: normal inspection, full ROM. Absent: lymphadenopathy, thyromegaly Respiratory exam: Present: normal lung sounds bilaterally. Absent: respiratory distress, wheezes, rales, rhonchi, stridor Cardiovascular Exam: Present: normal rhythm, tachycardia, normal heart sounds. Absent: bradycardia, systolic murmur, diastolic murmur GI/Abdominal exam: Present: distended, tenderness (Generalized), guarding, diminished bowel sounds. Absent: rebound Extremities exam: Present: normal inspection, full ROM. Absent: tenderness, normal capillary refill (Approximately 4 seconds), pedal edema, joint swelling, calf tenderness Neurological exam: Present: alert, oriented X3, CN II-XII intact. Absent: motor sensory deficit Psychiatric exam: Present: normal affect, normal mood Skin exam: Present: warm, dry, intact, pallor, other (Pale in appearance). Absent: normal color, rash, cyanosis, diaphoretic, erythema, urticaria, vesicles, petechiae, mottled, abrasion Course Vital Signs 06/26/22 06/26/22 06/26/22 18:05 20:11 23:09 Temperature 97.7 F Pulse Rate 105 H 102 H 101 H Respiratory 20 22 20 Rate Blood Pressure 119/74 130/66 100/70 O2 Sat by Pulse 98 99 100 Oximetry - Reevaluation(s) Reevaluation #1: 06/26/22 21:13 case was immediately discussed with ED attending physician, Dr. Dickens. Note that the patient waited quite some time in the waiting room before being taken to a room. I am level at 106. Patient also had multiple electrolyte abnormalities in addition to this. Patient was given a 500 mL bolus of normal saline. I discussed the case in detail with the on-call nephrology, Dr. Velasquez. He wants the fluid was completed, a stat sodium level drawn after that and wants to be called back. Reevaluation #2: 06/26/22 21:41 Patient reevaluated after getting back from computed tomography scan. Finishing a fluid bolus. Stat sodium will be drawn. Patient appears to be getting a bit more confused at this time. No focal deficits. Still answering questions appropriately. No seizure activity. Reevaluation #3: 06/26/22 21:54 Magnesium came back at 0.9. Replacement started. Repeat sodium was 105. Awaiting the postbolus stat sodium. Reevaluation #4: 06/26/22 22:23 Repeat sodium after fluid boluses 104. Call placed for nephrology. Reevaluation #5: 06/26/22 23:06 Patient reevaluated and condition is essentially unchanged. Patient did become hypotensive at one point but rebounded and now has a systolic blood pressure in excess of 100 with a normal diastolic blood pressure. The refill is approximately 3 seconds. Patient still appears pale. Patient alert and remains relatively oriented only mildly confused. Cranial nerves II through XII intact. Alcohol level elevated and noted. Ammonia level comes back at 16. Patient's lactate is improving. We'll even with the elevated lactate patient does not appear to have any infectious process. Does not appear to be consistent with sepsis. Patient's main culprit is electrolyte disturbance. 06/26/22 23:08 Medical Decision Making - Medical Decision Making patient has CT findings consistent with heterogenicity of the liver compared to the exam, could relate to hepatitis or cirrhosis, there is a moderate amount of ascites which is new compared to the old exam, 2 hepatic cysts, sigmoid diverticulosis without diverticulitis. Liver appears smaller than the old exam. Clearing of inflammatory changes in here anterior to the pancreatic head. Supervising physician was kept informed throughout the entire stay in the patient here. Case was discussed in detail with the on-call securities and real estate director, Dr. Velasquez, the on-call research and insights executive, Dr. Hui, the on-call APC from [facility], Chantal Jimy. Per ICU staff, central line not required for 3% hypertonic saline. study read by radiology, Dr. Dominguez - Lab Data Result diagrams: 06/26/22 18:42 06/26/22 21:53 Lab Results 06/26/22 06/26/22 06/26/22 Range/Units 18:42 18:42 19:02 WBC 8.3 (3.8-10.6) k/uL RBC 3.35 L (3.80-5.40) m/uL Hgb 12.7 (11.4-16.0) gm/dL Hct 35.8 (34.0-46.0) % MCV 107.0 H (80.0-100.0) fL MCH 38.1 H (25.0-35.0) pg MCHC 35.6 (31.0-37.0) g/dL RDW 12.6 (11.5-15.5) % Plt Count 160 (150-450) k/uL MPV 8.7 Neutrophils % 77 % Lymphocytes % 13 % Monocytes % 5 % Eosinophils % 1 % Basophils % 0 % Neutrophils # 6.4 (1.3-7.7) k/uL Lymphocytes # 1.1 (1.0-4.8) k/uL Monocytes # 0.5 (0-1.0) k/uL Eosinophils # 0.1 (0-0.7) k/uL Basophils # 0.0 (0-0.2) k/uL Macrocytosis Moderate PT (9.0-12.0) sec INR (<1.2) APTT (22.0-30.0) sec Sodium 106 L* (137-145) mmol/L Potassium 4.7 (3.5-5.1) mmol/L Chloride 71 L* (98-107) mmol/L Carbon Dioxide 19 L (22-30) mmol/L Anion Gap 16 mmol/L BUN 3 L (7-17) mg/dL Creatinine 0.59 (0.52-1.04) mg/dL Est GFR (CKD-EPI)AfAm >90 (>60 ml/min/1.73 sqM) Est GFR (CKD-EPI)NonAf >90 (>60 ml/min/1.73 sqM) Glucose 116 H (74-99) mg/dL Lactic Ac Sepsis Rflx Plasma Lactic Acid Julio Cesar 3.2 H* (0.7-2.0) mmol/L Calcium 7.7 L (8.4-10.2) mg/dL Phosphorus (2.5-4.5) mg/dL Magnesium (1.6-2.3) mg/dL Total Bilirubin 6.6 H (0.2-1.3) mg/dL AST 190 H (14-36) U/L ALT 51 H (4-34) U/L Alkaline Phosphatase 135 H (38-126) U/L Ammonia (<30) umol/L Troponin I (0.000-0.034) ng/mL NT-Pro-B Natriuret Pep pg/mL Total Protein 6.9 (6.3-8.2) g/dL Albumin 3.3 L (3.5-5.0) g/dL Amylase 70 (30-110) U/L Lipase 244 (23-300) U/L Acetaminophen ug/mL Serum Alcohol mg/dL Coronavirus (PCR) (Not Detectd) 06/26/22 06/26/22 06/26/22 Range/Units 19:02 19:02 19:02 WBC (3.8-10.6) k/uL RBC (3.80-5.40) m/uL Hgb (11.4-16.0) gm/dL Hct (34.0-46.0) % MCV (80.0-100.0) fL MCH (25.0-35.0) pg MCHC (31.0-37.0) g/dL RDW (11.5-15.5) % Plt Count (150-450) k/uL MPV Neutrophils % % Lymphocytes % % Monocytes % % Eosinophils % % Basophils % % Neutrophils # (1.3-7.7) k/uL Lymphocytes # (1.0-4.8) k/uL Monocytes # (0-1.0) k/uL Eosinophils # (0-0.7) k/uL Basophils # (0-0.2) k/uL Macrocytosis PT (9.0-12.0) sec INR (<1.2) APTT 38.6 H (22.0-30.0) sec Sodium (137-145) mmol/L Potassium (3.5-5.1) mmol/L Chloride (98-107) mmol/L Carbon Dioxide (22-30) mmol/L Anion Gap mmol/L BUN (7-17) mg/dL Creatinine (0.52-1.04) mg/dL Est GFR (CKD-EPI)AfAm (>60 ml/min/1.73 sqM) Est GFR (CKD-EPI)NonAf (>60 ml/min/1.73 sqM) Glucose (74-99) mg/dL Lactic Ac Sepsis Rflx Plasma Lactic Acid Julio Cesar (0.7-2.0) mmol/L Calcium (8.4-10.2) mg/dL Phosphorus (2.5-4.5) mg/dL Magnesium (1.6-2.3) mg/dL Total Bilirubin (0.2-1.3) mg/dL AST (14-36) U/L ALT (4-34) U/L Alkaline Phosphatase (38-126) U/L Ammonia (<30) umol/L Troponin I 0.015 (0.000-0.034) ng/mL NT-Pro-B Natriuret Pep 711 pg/mL Total Protein (6.3-8.2) g/dL Albumin (3.5-5.0) g/dL Amylase (30-110) U/L Lipase (23-300) U/L Acetaminophen ug/mL Serum Alcohol mg/dL Coronavirus (PCR) (Not Detectd) 06/26/22 06/26/22 06/26/22 Range/Units 20:14 21:00 21:06 WBC (3.8-10.6) k/uL RBC (3.80-5.40) m/uL Hgb (11.4-16.0) gm/dL Hct (34.0-46.0) % MCV (80.0-100.0) fL MCH (25.0-35.0) pg MCHC (31.0-37.0) g/dL RDW (11.5-15.5) % Plt Count (150-450) k/uL MPV Neutrophils % % Lymphocytes % % Monocytes % % Eosinophils % % Basophils % % Neutrophils # (1.3-7.7) k/uL Lymphocytes # (1.0-4.8) k/uL Monocytes # (0-1.0) k/uL Eosinophils # (0-0.7) k/uL Basophils # (0-0.2) k/uL Macrocytosis PT 18.7 H (9.0-12.0) sec INR 1.8 H (<1.2) APTT 38.3 H (22.0-30.0) sec Sodium 105 L* (137-145) mmol/L Potassium 4.8 (3.5-5.1) mmol/L Chloride 71 L* (98-107) mmol/L Carbon Dioxide 20 L (22-30) mmol/L Anion Gap 14 mmol/L BUN 4 L (7-17) mg/dL Creatinine 0.53 (0.52-1.04) mg/dL Est GFR (CKD-EPI)AfAm >90 (>60 ml/min/1.73 sqM) Est GFR (CKD-EPI)NonAf >90 (>60 ml/min/1.73 sqM) Glucose 101 H (74-99) mg/dL Lactic Ac Sepsis Rflx Y Plasma Lactic Acid Julio Cesar (0.7-2.0) mmol/L Calcium 7.7 L (8.4-10.2) mg/dL Phosphorus 2.5 (2.5-4.5) mg/dL Magnesium 0.9 L* (1.6-2.3) mg/dL Total Bilirubin (0.2-1.3) mg/dL AST (14-36) U/L ALT (4-34) U/L Alkaline Phosphatase (38-126) U/L Ammonia (<30) umol/L Troponin I (0.000-0.034) ng/mL NT-Pro-B Natriuret Pep pg/mL Total Protein (6.3-8.2) g/dL Albumin (3.5-5.0) g/dL Amylase (30-110) U/L Lipase (23-300) U/L Acetaminophen ug/mL Serum Alcohol mg/dL Coronavirus (PCR) (Not Detectd) 09/27/22 09/27/22 09/27/22 Range/Units 21:53 22:30 22:30 WBC (3.8-10.6) k/uL RBC (3.80-5.40) m/uL Hgb (11.4-16.0) gm/dL Hct (34.0-46.0) % MCV (80.0-100.0) fL MCH (25.0-35.0) pg MCHC (31.0-37.0) g/dL RDW (11.5-15.5) % Plt Count (150-450) k/uL MPV Neutrophils % % Lymphocytes % % Monocytes % % Eosinophils % % Basophils % % Neutrophils # (1.3-7.7) k/uL Lymphocytes # (1.0-4.8) k/uL Monocytes # (0-1.0) k/uL Eosinophils # (0-0.7) k/uL Basophils # (0-0.2) k/uL Macrocytosis PT (9.0-12.0) sec INR (<1.2) APTT (22.0-30.0) sec Sodium 104 L* (137-145) mmol/L Potassium (3.5-5.1) mmol/L Chloride (98-107) mmol/L Carbon Dioxide (22-30) mmol/L Anion Gap mmol/L BUN (7-17) mg/dL Creatinine (0.52-1.04) mg/dL Est GFR (CKD-EPI)AfAm (>60 ml/min/1.73 sqM) Est GFR (CKD-EPI)NonAf (>60 ml/min/1.73 sqM) Glucose (74-99) mg/dL Lactic Ac Sepsis Rflx Plasma Lactic Acid Julio Cesar 2.5 H* (0.7-2.0) mmol/L Calcium (8.4-10.2) mg/dL Phosphorus (2.5-4.5) mg/dL Magnesium (1.6-2.3) mg/dL Total Bilirubin (0.2-1.3) mg/dL AST (14-36) U/L ALT (4-34) U/L Alkaline Phosphatase (38-126) U/L Ammonia 16 (<30) umol/L Troponin I (0.000-0.034) ng/mL NT-Pro-B Natriuret Pep pg/mL Total Protein (6.3-8.2) g/dL Albumin (3.5-5.0) g/dL Amylase (30-110) U/L Lipase (23-300) U/L Acetaminophen <10.0 ug/mL Serum Alcohol 134 mg/dL Coronavirus (PCR) (Not Detectd) 06/26/22 Range/Units 23:00 WBC (3.8-10.6) k/uL RBC (3.80-5.40) m/uL Hgb (11.4-16.0) gm/dL Hct (34.0-46.0) % MCV (80.0-100.0) fL MCH (25.0-35.0) pg MCHC (31.0-37.0) g/dL RDW (11.5-15.5) % Plt Count (150-450) k/uL MPV Neutrophils % % Lymphocytes % % Monocytes % % Eosinophils % % Basophils % % Neutrophils # (1.3-7.7) k/uL Lymphocytes # (1.0-4.8) k/uL Monocytes # (0-1.0) k/uL Eosinophils # (0-0.7) k/uL Basophils # (0-0.2) k/uL Macrocytosis PT (9.0-12.0) sec INR (<1.2) APTT (22.0-30.0) sec Sodium (137-145) mmol/L Potassium (3.5-5.1) mmol/L Chloride (98-107) mmol/L Carbon Dioxide (22-30) mmol/L Anion Gap mmol/L BUN (7-17) mg/dL Creatinine (0.52-1.04) mg/dL Est GFR (CKD-EPI)AfAm (>60 ml/min/1.73 sqM) Est GFR (CKD-EPI)NonAf (>60 ml/min/1.73 sqM) Glucose (74-99) mg/dL Lactic Ac Sepsis Rflx Plasma Lactic Acid Julio Cesar (0.7-2.0) mmol/L Calcium (8.4-10.2) mg/dL Phosphorus (2.5-4.5) mg/dL Magnesium (1.6-2.3) mg/dL Total Bilirubin (0.2-1.3) mg/dL AST (14-36) U/L ALT (4-34) U/L Alkaline Phosphatase (38-126) U/L Ammonia (<30) umol/L Troponin I (0.000-0.034) ng/mL NT-Pro-B Natriuret Pep pg/mL Total Protein (6.3-8.2) g/dL Albumin (3.5-5.0) g/dL Amylase (30-110) U/L Lipase (23-300) U/L Acetaminophen ug/mL Serum Alcohol mg/dL Coronavirus (PCR) Not Detected (Not Detectd) - EKG Data EKG Comments: EKG done at 2145 and her ED attending physician reveals sinus tachycardia with a rate of 107. Normal intervals. In precordial leads. Baseline artifact. Left anterior fascicular block by computerized interpretation. ST depression of 0.05 mV in computers interpretation. I see no evidence of significant depression on my evaluation. Left axis deviation. There is no comparison study. Critical Care Time Critical Care Time: Yes (50) Total Critical Care Time: 50 Critical Care Time: Multiple patient reevaluation. Reevaluation of patient's response to treatment. Evaluation of diagnostic testing. Ordering of interventions. Discussion with research and insights executive, senior [employer] consultant, and admitting physician. Sodium level 104, and is him 0.9. Disposition Clinical Impression: Hyponatremia, Hypomagnesemia, Alcoholic hepatitis with ascites, Alcohol intoxication Narrative: History of alcohol abuse Disposition: ADMITTED IP TO THIS HOSP Condition: Critical Is patient prescribed a controlled substance at d/c from ED?: No Referrals: Pearl Stoner MD [Primary Care Provider] - 1-2 days Decision to Admit Reason: Admit from EC Decision Time: 22:08
[2022-06-26] MEDS ORDERED: ONDANSETRON 4 MG/2 ML VIAL IVP STA (21:15)
[2022-06-26] MEDS ORDERED: MORPHINE SULFATE 4 MG/ML SYRINGE IV STA (21:15)
[2022-06-26 21:38] LABS: INR 1.8 (<1.2); Partial Thromboplastin Time 38.3 sec (22.0-30.0); Prothrombin Time 18.7 sec (9.0-12.0)
[2022-06-26 21:40] LABS: African American GFR (CKD) >90 (>60 ml/min/1.73 sqM); Anion Gap 14 mmol/L; Blood Urea Nitrogen 4 mg/dL (7-17); Calcium 7.7 mg/dL (8.4-10.2); Carbon Dioxide 20 mmol/L (22-30); Glucose 101 mg/dL (74-99); Non-African American GFR(CKD) >90 (>60 ml/min/1.73 sqM); Phosphorus 2.5 mg/dL (2.5-4.5); Potassium 4.8 mmol/L (3.5-5.1)
[2022-06-26 21:45] LABS: Chloride 71 mmol/L (98-107); Magnesium 0.9 mg/dL (1.6-2.3); Sodium 105 mmol/L (137-145)
[2022-06-26] MEDS ORDERED: Magnesium Replacement Protocol 1 EACH MISC MISCELLANE PRN (21:53)
--- NOTE | 2022-06-26 21:56 | CT ---
EXAMINATION TYPE: CT abdomen pelvis w con DATE OF EXAM: 06/26/2022 COMPARISON: 06/10/2019 HISTORY: Abdominal pain CT DLP: mGycm Automated exposure control for dose reduction was used. CONTRAST: The contrast was Isovue 100 mL. Lung bases are clear of consolidation. No pleural effusion. There are 2 rounded fluid densities in th e lateral right lobe of the liver. There is heterogeneity throughout the liver. Spleen is intact. The re is moderate abdominal ascites. Stomach is intact. No pancreatic mass. Gallbladder is intact. The b ile ducts are not dilated. There is no adrenal mass. Kidneys show satisfactory contrast opacification. No hydronephrosis. Ureter s are not dilated. No retroperitoneal adenopathy. Abdominal aorta is atheromatous. Bladder distends s moothly. No inguinal hernia. No free fluid in the pelvis. There are multiple sigmoid diverticula. No sign of diverticulitis. The lumbar vertebrae have normal alignment. There is multilevel vacuum disc. There is thoracolumbar l evoscoliosis. The bony pelvis is intact. The hip joints are intact. IMPRESSION: Heterogeneity in the liver appears new compared to old exam and could relate to hepatitis or cirrhosi s. There is moderate abdominal ascites which is new compared to the old exam. There are 2 hepatic cys ts and the largest measures 3.3 cm and not significantly different than old exam. Sigmoid diverticulosis without diverticulitis. Liver appears smaller than old exam. There is clearing of the inflammatory changes anterior to the pancreatic head compared to old exam.
[2022-06-26] MEDS ORDERED: THIAMINE 100 MG/ML 2 ML VIAL IVP STA (22:10)
[2022-06-26] MEDS ORDERED: NALOXONE 0.4 MG/ML 1 ML VIAL IV PRN (22:39)
[2022-06-26 22:50] LABS: Acetaminophen <10.0 ug/mL
--- NOTE | 2022-06-26 22:53 | XR ---
EXAMINATION TYPE: XR chest 1V portable DATE OF EXAM: 06/26/2022 COMPARISON: NONE HISTORY: Weakness TECHNIQUE: Single view FINDINGS: There is no heart failure nor confluent pneumonic infiltrate. There is some mild atelectasi s left lung base. There are no hilar masses. There are chest leads. The bony thorax appears intact. IMPRESSION: There is some mild linear infiltrate and atelectasis left lung base. No heart failure.
[2022-06-26 22:55] LABS: Lactic Acid, Venous 2.5 mmol/L (0.7-2.0)
[2022-06-26 22:57] LABS: Alcohol 134 mg/dL
[2022-06-26] MEDS: SODIUM CHLORIDE 3%(HYPERTONIC) 500 ML IV SCH (23:48)
[2022-06-26] MEDS: MAGNESIUM SULFATE-D5W PMX 1 GM in DEXTROSE/WATER 1 100ML.BAG IVPB SCH (23:56)
[2022-06-26] MEDS: PANTOPRAZOLE 40 MG/10 ML VIAL IVP SCH (23:57)
[2022-06-26] MEDS: MORPHINE SULFATE 4 MG/ML SYRINGE IV PRN (23:57)
[2022-06-27 00:37] LABS: Glucose,Whole Blood 101 mg/dL (70-110)
[2022-06-27] MEDS: MAGNESIUM SULFATE-D5W PMX 1 GM in DEXTROSE/WATER 1 100ML.BAG IVPB SCH ×3 (02:34→05:23)
[2022-06-27 02:48] LABS: Hepatitis A Antibody IgM Nonreactive (Nonreactive); Hepatitis B Core IgM Nonreactive (Nonreactive); Hepatitis B Surface Antigen Nonreactive (Nonreactive); Hepatitis C IgG Antibody Nonreactive (Nonreactive)
[2022-06-27] MEDS ORDERED: NALOXONE 0.4 MG/ML 1 ML VIAL IV PRN (03:28)
[2022-06-27] MEDS: HEPARIN SODIUM,PORCINE/PF 5,000 UNIT/0.5 ML SYRINGE SQ SCH ×4 (03:50→23:35)
[2022-06-27 05:04] LABS: Basophils % (A) 0 %; Eosinophils # (A) 0.1 k/uL (0-0.7); Eosinophils % (A) 1 %; HCT 33.5 % (34.0-46.0); HGB 11.7 gm/dL (11.4-16.0); Lymphocytes # (A) 1.4 k/uL (1.0-4.8); Lymphocytes % (A) 18 %; MCH 38.1 pg (25.0-35.0); MCV 108.8 fL (80.0-100.0); Macrocytosis Moderate; Mean Platelet Volume 8.4; Monocytes # (A) 0.5 k/uL (0-1.0); Monocytes % (A) 7 %; Neutrophils # (A) 5.3 k/uL (1.3-7.7); Neutrophils % (A) 70 %; Platelet Count 165 k/uL (150-450); RBC 3.08 m/uL (3.80-5.40); RDW 12.8 % (11.5-15.5); WBC 7.6 k/uL (3.8-10.6)
[2022-06-27 05:23] LABS: ALT 46 U/L (4-34); AST 162 U/L (14-36); African American GFR (CKD) >90 (>60 ml/min/1.73 sqM); Albumin 2.6 g/dL (3.5-5.0); Alkaline Phosphatase 107 U/L (38-126); Anion Gap 11 mmol/L; Blood Urea Nitrogen 4 mg/dL (7-17); Calcium 7.3 mg/dL (8.4-10.2); Carbon Dioxide 21 mmol/L (22-30); Chloride 75 mmol/L (98-107); Glucose 102 mg/dL (74-99); Lipase 161 U/L (23-300); Magnesium 1.8 mg/dL (1.6-2.3); Non-African American GFR(CKD) 87 (>60 ml/min/1.73 sqM); Potassium 4.5 mmol/L (3.5-5.1); Total Bilirubin 5.6 mg/dL (0.2-1.3)
[2022-06-27 06:04] LABS: Sodium 107 mmol/L (137-145)
[2022-06-27] MEDS: ALBUTEROL NEBULIZED 2.5 MG/3 ML INHALATION SCH ×4 (06:14→19:44)
[2022-06-27] MEDS: PANTOPRAZOLE 40 MG/10 ML VIAL IVP SCH (08:12)
[2022-06-27] MEDS: ONDANSETRON 4 MG/2 ML VIAL IVP PRN (08:12)
[2022-06-27 08:38] LABS: Sodium 108 mmol/L (137-145)
[2022-06-27] MEDS ORDERED: THIAMINE 100 MG TAB PO SCH (09:00)
--- NOTE | 2022-06-27 09:53 | P.NPCON ---
History of Present Illness - Reason for Consult hyponatremia - History of Present Illness Reason for consultation: Hyponatremia History of present illness: Patient is a 71-year-old female seen in consultation for hyponatremia. Sodium level on admission was 106. She did receive 500 mL bolus of normal saline and sodium level dropped to 104. She was then started on 3% saline and sodium level this morning is 108. Patient presents to the hospital due to nausea and vomiting going on for about 3-4 weeks. Patient states the last few days oral intake has been quite poor. She denies diarrhea. She denies use of thiazide diuretics. No history of malignancy. She does admit to drinking quite a bit of fluids including 2-3 12 ounces bottles of water, one 16 ounce bottle of pop and also about a bottle of wine on a daily basis. Blood pressures on the lower side. Urine output since admission has been 265 mL. She does have a Latham catheter. Patient is awake and alert. No history of seizures. Vital signs are stable. Blood pressure in the lower side. General: Awake. No acute distress. HEENT: Head exam is unremarkable. LUNGS: Breath sounds decreased. HEART: Rate and Rhythm are regular. ABDOMEN: Soft, no distention. EXTREMITITES: No edema. Past Medical History Past Medical History: COPD, GERD/Reflux, Hyperlipidemia, Hypertension, Rheumatoid Arthritis (RA) Additional Past Medical History / Comment(s): Pancreatitis History of Any Multi-Drug Resistant Organisms: None Reported Past Surgical History: Hysterectomy, Tubal Ligation Additional Past Surgical History / Comment(s): One ovary removed, stomach muscles repaired, Past Anesthesia/Blood Transfusion Reactions: No Reported Reaction Past Psychological History: No Psychological Hx Reported Additional Psychological History / Comment(s): Patient lives in own home. Independent. Son helps with groceries. Patient states she lives with son Robbin Manrique Smoking Status: Former smoker Past Alcohol Use History: Daily Additional Past Alcohol Use History / Comment(s): Patient drinks 4 beers and 1 glass of wine every day. Past Drug Use History: None Reported - Past Family History Father Family Medical History: Cancer Additional Family Medical History / Comment(s): Throat cancer and . Mother Additional Family Medical History / Comment(s): Brain aneurysm and . Son(s) Family Medical History: Hypertension Additional Family Medical History / Comment(s): Oldest son has HTN. Medications and Allergies Home Medications Medication Instructions Recorded Confirmed Type Albuterol Sulfate [Proair Hfa] 1 - 2 puff INHALATION RT-Q6H PRN 06/10/19 06/26/22 History Metoprolol Tartrate 25 mg PO DAILY 06/10/19 06/26/22 History Milk Thistle 150 mg PO DAILY 06/10/19 06/26/22 History [place]-3 Fatty Acids/Fish Oil [Fish 1 cap PO BID 06/10/19 06/26/22 History Oil 1,000 mg Softgel] lisinopriL 20 mg PO DAILY 06/10/19 06/26/22 History Metoprolol Tartrate [Lopressor] 25 mg PO HS PRN 06/26/22 06/26/22 History Omeprazole 20 mg PO DAILY 06/26/22 06/26/22 History Allergies Allergy/AdvReac Type Severity Reaction Status Date / Time No Known Allergies Allergy Verified 06/26/22 22:36 Physical Exam Vitals: Vital Signs Temp Pulse Resp BP Pulse Ox 06/27/22 08:00 98 F 94 12 86/45 97 06/27/22 07:55 97 06/27/22 07:29 97 06/27/22 07:28 97 06/27/22 07:00 91 10 L 78/57 94 L 06/27/22 06:00 91 10 L 93/58 96 06/27/22 05:00 91 10 L 101/59 95 06/27/22 04:00 92 9 L 98/54 95 06/27/22 03:00 90 10 L 105/66 95 06/27/22 02:00 93 11 L 101/71 96 06/27/22 01:00 97.8 F 104 H 10 L 117/54 06/27/22 00:40 106 H 26 H 115/70 06/27/22 00:22 97.7 F 104 H 18 93/69 99 06/27/22 00:20 97.8 F 14 06/26/22 23:09 101 H 20 100/70 100 06/26/22 20:11 102 H 22 130/66 99 06/26/22 18:05 97.7 F 105 H 20 119/74 98 Intake and Output 06/26/22 06/27/22 06/27/22 22:59 06:59 14:59 Intake Total 500 105 Output Total 265 0 Balance 235 105 Intake: Intake, IV Titration 500 105 Amount Magnesium Sulfate-D5w Pmx 300 1 gm In Dextrose/Water 1 100ml.bag @ 100 mls/hr IVPB Q1H [facility] Rx#: [id number] Sodium Chloride 3%( 200 105 Hypertonic) 500 ml @ 35 mls/hr IV .[id number] [facility] Rx #:[id number] Output: Urine 265 0 Other: Voiding Method Indwelling Catheter Indwelling Catheter Weight 72.575 kg 72.575 kg Results - Lab Results Most recent lab results Calcium 7.3 mg/dL (8.4-10.2) L 06/27/22 04:33 Phosphorus 2.5 mg/dL (2.5-4.5) 06/26/22 21:00 Magnesium 1.8 mg/dL (1.6-2.3) 06/27/22 04:33 06/27/22 04:33 06/27/22 08:06 Assessment and Plan Plan: Assessment: 1. Hyponatremia secondary to poor solute intake/excessive fluid intake. Sodium level 106 on admission and dropped to normal saline. Currently on 3% saline and up to 108 this morning. 2. Alcohol abuse. Concern for alcoholic hepatitis. GI consulted. CT of the abdomen and pelvis suggestive of hepatitis versus cirrhosis. No hydronephrosis noted. 3. Benign hypertension. Blood pressure currently on the lower side. 4. Ascites noted on CAT scan. 5. Hypomagnesemia from poor intake. Replaced. Better. Plan: Maintain 3%. Continue to check sodium level every 2 hours. Goal rate of correction 6-7 mEq per 24 hours. Check abdominal ultrasound. Lasix 20 mg IV once today. Check TSH and cortisol level. Check serum and urine osmolality and urine sodium level. Thank you for the consultation. I will continue to follow the patient with you during her hospital stay.
[2022-06-27] MEDS ORDERED: FUROSEMIDE 10 MG/ML 2 ML VIAL IV ONE ×2 (10:00→18:59)
--- NOTE | 2022-06-27 10:35 | US ---
EXAMINATION TYPE: US abdomen limited DATE OF EXAM: 06/27/2022 COMPARISON: NONE CLINICAL HISTORY: ascites. Exam done portable in ICU Abdominal ascites seen IMPRESSION: ascites.
[2022-06-27 11:24] LABS: Appearance,Urine Cloudy (Clear); Bacteria,Urine Rare /hpf; Bilirubin,Urine Negative (Negative); Blood,Urine Large (Negative); Color,Urine Yellow; Glucose,Urine (UA) Negative (Negative); Hyaline Casts,Urine 1 /lpf (0-2); Ketones,Urine Negative (Negative); Leukocyte Esterase,Urine Moderate (Negative); Mucus,Urine Rare /hpf; Nitrite,Urine Negative (Negative); PH, Urine 5.5 (5.0-8.0); Protein,Urine 1+ (Negative); RBC,Urine 147 /hpf (0-5); Squamous Epithelial Cell,Urine 2 /hpf (0-4); WBC,Urine 28 /hpf (0-5)
[2022-06-27] MEDS: HYDROCORTISONE SUCCINATE 100 MG/2 ML VIAL IV SCH ×2 (12:49→20:11)
[2022-06-27] MEDS ORDERED: THIAMINE 100 MG/ML 2 ML VIAL IM STA (14:41)
[2022-06-27] MEDS ORDERED: LORazepam 2 MG/ML INJ IV PRN ×3 (14:41)
[2022-06-27] MEDS: SODIUM CHLORIDE 3%(HYPERTONIC) 500 ML IV SCH (14:56)
--- NOTE | 2022-06-27 14:59 | P.CONS ---
History of Present Illness - Reason for Consult Consult date: 06/27/22 Alcoholic hepatitis Requesting physician: Oleg Montez - Chief Complaint Nausea and vomiting - History of Present Illness This a pleasant 71-year-old female who presented to the emergency department yesterday with complaints of nausea and vomiting 1 month duration. She has been having progressively distended abdomen, increased weakness, decreased urine output and bowel movements. On admission patient was found to be hyponatremic with a sodium of 105. She was admitted to the ICU for further evaluation. She was also noted to have heterogeneity of the liver possible cirrhosis versus hepatitis. Gastroenterology was consulted for alcoholic hepatitis. Patient admits to drinking one bottle of wine a day, she states she's been drinking daily for 1 year duration due to pain. Prior to that she states that she drinks 1-2 bottles of wine a week. She is also complaining of abdominal discomfort, nausea and vomiting especially after eating. States she's not been eating well at home, mostly drinking water and not pop. Denies any previous EGD, states that she was told in the past that she had an ulcer but she has not had an EGD performed. Labs: WBC 7.6 hemoglobin 11.7 hematocrit 33 platelet count 165,000 sodium 108 total bilirubin 5.6 AST 162 ALT 46 alkaline phosphatase 107 lipase 161 ammonia 16 acetaminophen less than 10, serum alcohol 134 hepatitis panel nonreactive Review of Systems REVIEW OF SYSTEMS: CARDIOPULMONARY: No chest pain or shortness of breath. Gastrointestinal: Mild abdominal pain. Mild distention. Constipation, nausea with vomiting. No hematemesis, coffee-ground emesis. No rectal bleeding, or melena. GENITOURINARY: No dysuria or hematuria. Dark urine for the last week's duration. Oliguria. MUSCULOSKELETAL: Reports normal range of motion. SKIN: No rashes. No jaundice. ENDOCRINE: No chills, fevers. No excessive weight gain or loss. No polydipsia or polyuria. PSYCHIATRIC: Unremarkable. NEUROLOGY: No change in mental status. Denies dizziness, headache. ENT: Vision unremarkable. CONSTITUTIONAL: No recent weight loss. No fever, chills, night sweats. Past Medical History Past Medical History: COPD, GERD/Reflux, Hyperlipidemia, Hypertension, Rheuma toid Arthritis (RA) Additional Past Medical History / Comment(s): Pancreatitis History of Any Multi-Drug Resistant Organisms: None Reported Past Surgical History: Hysterectomy, Tubal Ligation Additional Past Surgical History / Comment(s): One ovary removed, stomach muscles repaired, Past Anesthesia/Blood Transfusion Reactions: No Reported Reaction Past Psychological History: No Psychological Hx Reported Additional Psychological History / Comment(s): Patient lives in own home. Independent. Son helps with groceries. Patient states she lives with son Robbin Manrique Smoking Status: Former smoker Past Alcohol Use History: Daily Additional Past Alcohol Use History / Comment(s): Patient drinks 4 beers and 1 glass of wine every day. Past Drug Use History: None Reported - Past Family History Father Family Medical History: Cancer Additional Family Medical History / Comment(s): Throat cancer and . Mother Additional Family Medical History / Comment(s): Brain aneurysm and . Son(s) Family Medical History: Hypertension Additional Family Medical History / Comment(s): Oldest son has HTN. Medications and Allergies Home Medications Medication Instructions Recorded Confirmed Type Albuterol Sulfate [Proair Hfa] 1 - 2 puff INHALATION RT-Q6H PRN 06/10/19 06/26/22 History Metoprolol Tartrate 25 mg PO DAILY 06/10/19 06/26/22 History Milk Thistle 150 mg PO DAILY 06/10/19 06/26/22 History [place]-3 Fatty Acids/Fish Oil [Fish 1 cap PO BID 06/10/19 06/26/22 History Oil 1,000 mg Softgel] lisinopriL 20 mg PO DAILY 06/10/19 06/26/22 History Metoprolol Tartrate [Lopressor] 25 mg PO HS PRN 06/26/22 06/26/22 History Omeprazole 20 mg PO DAILY 06/26/22 06/26/22 History Allergies Allergy/AdvReac Type Severity Reaction Status Date / Time No Known Allergies Allergy Verified 06/26/22 22:36 Physical Exam Vitals: Vital Signs Temp Pulse Resp BP Pulse Ox 06/27/22 08:00 98 F 94 12 86/45 97 06/27/22 07:55 97 06/27/22 07:29 97 06/27/22 07:28 97 06/27/22 07:00 91 10 L 78/57 94 L 06/27/22 06:00 91 10 L 93/58 96 06/27/22 05:00 91 10 L 101/59 95 06/27/22 04:00 92 9 L 98/54 95 06/27/22 03:00 90 10 L 105/66 95 06/27/22 02:00 93 11 L 101/71 96 06/27/22 01:00 97.8 F 104 H 10 L 117/54 06/27/22 00:40 106 H 26 H 115/70 06/27/22 00:22 97.7 F 104 H 18 93/69 99 06/27/22 00:20 97.8 F 14 06/26/22 23:09 101 H 20 100/70 100 06/26/22 20:11 102 H 22 130/66 99 06/26/22 18:05 97.7 F 105 H 20 119/74 98 Intake and Output 06/26/22 06/27/22 06/27/22 22:59 06:59 14:59 Intake Total 500 105 Output Total 265 0 Balance 235 105 Intake: Intake, IV Titration 500 105 Amount Magnesium Sulfate-D5w Pmx 300 1 gm In Dextrose/Water 1 100ml.bag @ 100 mls/hr IVPB Q1H [facility] Rx#: [id number] Sodium Chloride 3%( 200 105 Hypertonic) 500 ml @ 35 mls/hr IV .[id number] [facility] Rx #:[id number] Output: Urine 265 0 Other: Voiding Method Indwelling Catheter Indwelling Catheter Weight 72.575 kg 72.575 kg General appearance: The patient is alert, oriented, appears in no acute distress. HET: Head is normocephalic and atraumatic. Conjunctiva pink. Sclera anicteric. Neck: Supple without lymphadenopathy. Trachea midline. Heart: S1 S2. Regular rate and rhythm. Lungs: Clear to auscultation. Abdomen: Soft, mild tenderness, mild distention, positive bowel sounds. No guarding or rigidity. Skin: No rashes. Jaundice. Extremities: Normal skin color and turgor. No pedal edema. Neurological: No focal deficits. Alert and oriented x3. Results CBC & Chem 7: 06/27/22 04:33 06/27/22 11:05 Labs: Abnormal Lab Results - Last 24 Hours (Table) 06/26/22 06/26/22 06/26/22 Range/Units 18:42 18:42 19:02 RBC 3.35 L (3.80-5.40) m/uL Hct (34.0-46.0) % MCV 107.0 H (80.0-100.0) fL MCH 38.1 H (25.0-35.0) pg PT (9.0-12.0) sec INR (<1.2) APTT (22.0-30.0) sec Sodium 106 L* (137-145) mmol/L Chloride 71 L* (98-107) mmol/L Carbon Dioxide 19 L (22-30) mmol/L BUN 3 L (7-17) mg/dL Glucose 116 H (74-99) mg/dL Plasma Lactic Acid Julio Cesar 3.2 H* (0.7-2.0) mmol/L Calcium 7.7 L (8.4-10.2) mg/dL Magnesium (1.6-2.3) mg/dL Total Bilirubin 6.6 H (0.2-1.3) mg/dL AST 190 H (14-36) U/L ALT 51 H (4-34) U/L Alkaline Phosphatase 135 H (38-126) U/L Total Protein (6.3-8.2) g/dL Albumin 3.3 L (3.5-5.0) g/dL 06/26/22 06/26/22 06/26/22 Range/Units 19:02 21:00 21:06 RBC (3.80-5.40) m/uL Hct (34.0-46.0) % MCV (80.0-100.0) fL MCH (25.0-35.0) pg PT 18.7 H (9.0-12.0) sec INR 1.8 H (<1.2) APTT 38.6 H 38.3 H (22.0-30.0) sec Sodium 105 L* (137-145) mmol/L Chloride 71 L* (98-107) mmol/L Carbon Dioxide 20 L (22-30) mmol/L BUN 4 L (7-17) mg/dL Glucose 101 H (74-99) mg/dL Plasma Lactic Acid Julio Cesar (0.7-2.0) mmol/L Calcium 7.7 L (8.4-10.2) mg/dL Magnesium 0.9 L* (1.6-2.3) mg/dL Total Bilirubin (0.2-1.3) mg/dL AST (14-36) U/L ALT (4-34) U/L Alkaline Phosphatase (38-126) U/L Total Protein (6.3-8.2) g/dL Albumin (3.5-5.0) g/dL 06/26/22 06/26/22 06/27/22 Range/Units 21:53 22:30 01:04 RBC (3.80-5.40) m/uL Hct (34.0-46.0) % MCV (80.0-100.0) fL MCH (25.0-35.0) pg PT (9.0-12.0) sec INR (<1.2) APTT (22.0-30.0) sec Sodium 104 L* (137-145) mmol/L Chloride (98-107) mmol/L Carbon Dioxide (22-30) mmol/L BUN (7-17) mg/dL Glucose (74-99) mg/dL Plasma Lactic Acid Julio Cesar 2.5 H* 2.2 H* (0.7-2.0) mmol/L Calcium (8.4-10.2) mg/dL Magnesium (1.6-2.3) mg/dL Total Bilirubin (0.2-1.3) mg/dL AST (14-36) U/L ALT (4-34) U/L Alkaline Phosphatase (38-126) U/L Total Protein (6.3-8.2) g/dL Albumin (3.5-5.0) g/dL 06/27/22 06/27/22 06/27/22 Range/Units 02:29 04:33 04:33 RBC 3.08 L (3.80-5.40) m/uL Hct 33.5 L (34.0-46.0) % MCV 108.8 H (80.0-100.0) fL MCH 38.1 H (25.0-35.0) pg PT (9.0-12.0) sec INR (<1.2) APTT (22.0-30.0) sec Sodium 106 L* 107 L* (137-145) mmol/L Chloride 75 L (98-107) mmol/L Carbon Dioxide 21 L (22-30) mmol/L BUN 4 L (7-17) mg/dL Glucose 102 H (74-99) mg/dL Plasma Lactic Acid Julio Cesar (0.7-2.0) mmol/L Calcium 7.3 L (8.4-10.2) mg/dL Magnesium (1.6-2.3) mg/dL Total Bilirubin 5.6 H (0.2-1.3) mg/dL AST 162 H (14-36) U/L ALT 46 H (4-34) U/L Alkaline Phosphatase (38-126) U/L Total Protein 6.0 L (6.3-8.2) g/dL Albumin 2.6 L (3.5-5.0) g/dL 06/27/22 06/27/22 Range/Units 06:47 08:06 RBC (3.80-5.40) m/uL Hct (34.0-46.0) % MCV (80.0-100.0) fL MCH (25.0-35.0) pg PT (9.0-12.0) sec INR (<1.2) APTT (22.0-30.0) sec Sodium 106 L* 108 L* (137-145) mmol/L Chloride (98-107) mmol/L Carbon Dioxide (22-30) mmol/L BUN (7-17) mg/dL Glucose (74-99) mg/dL Plasma Lactic Acid Julio Cesar (0.7-2.0) mmol/L Calcium (8.4-10.2) mg/dL Magnesium (1.6-2.3) mg/dL Total Bilirubin (0.2-1.3) mg/dL AST (14-36) U/L ALT (4-34) U/L Alkaline Phosphatase (38-126) U/L Total Protein (6.3-8.2) g/dL Albumin (3.5-5.0) g/dL Comments: CT abdomen and pelvis With contrast: Heterogeneity in the liver appears new compared to old exam and could relate to hepatitis or cirrhosis. Moderate abdominal ascites which is new compared to old exam. There are 2 hepatic cysts largest measuring 3.3 cm and not significantly different than old exam. Sigmoid diverticulosis without diverticulitis. Liver appears smaller than old exam. There is clearing of inflammatory changes anterior to the pancreatic head compared to old exam. Assessment and Plan (1) Alcoholic hepatitis with ascites Narrative/Plan: 71-year-old admitted with nausea vomiting, weakness and severe hyponatremia. Patient has a history of alcohol intoxication, abuse drinking at least 1 bottle of wine the last one year duration. Patient was noted to have elevated LFTs on admission, CT of the abdomen and pelvis reporting heterogeneity of the liver suggestive of cirrhosis or hepatitis. Patient likely has underlying cirrhosis of the liver related to alcohol abuse. New onset ascites. Patient's abdomen soft at this time, may require paracentesis in the next 1-2 days duration and will get fluid studies at that time if needed. Otherwise discussed with patient importance of alcohol abstinence and need for outpatient follow-up for her underlying liver disease. Current Visit: Yes Status: Acute Code(s): K70.11 - ALCOHOLIC HEPATITIS WITH ASCITES SNOMED Code(s): 2256664989896965 (2) Nausea and vomiting Narrative/Plan: Patient with complaints of nausea and vomiting related to eating. Unclear etiology at this time. May be related to underlying hyponatremia and hypomagnesemia. No plans on EGD at this time. Will continue with proton X 40 mg daily. And reporting oral and pharyngeal phases of the swallow that are within normal limits. Patient did experience some complaints of esophageal pain and a sensation of nausea after eating textured food. Will keep on clear liquid diet and advance to full liquid diet in the morning. Current Visit: Yes Status: Acute Code(s): R11.2 - NAUSEA WITH VOMITING, UNSPECIFIED SNOMED Code(s): 43021955 (3) Hyponatremia Current Visit: Yes Status: Acute Code(s): E87.1 - HYPO-OSMOLALITY AND HYPONATREMIA SNOMED Code(s): 04710188 Plan: 1. Continue symptomatic and supportive care 2. Avoid hepatotoxic medications 3. Daily CMP 4. Alcohol abstinence 5. Clear liquid diet, advance diet as tolerated 6. No plans on EGD at this time 7. Continue with recommendations from nephrology Thank you for this consultation, we will continue to follow. Dr. Percy Tejada I agree with the dictator's note, documented as a scribe by Bonita Ellsworth.
--- NOTE | 2022-06-27 15:35 | P.CNPUL ---
History of Present Illness Consult date: 06/27/22 Requesting physician: Corona Jacinto Reason for consult: other (severe hyponatremia, ICU management) Chief complaint: nausea vomiting/chronic History of present illness: this is a 71-year-old female, heavy drinker, patient drinks on a daily basis, brought into the hospital with one month history of nausea and vomiting, constipation, and her abdomen has been gradually getting more and more disten ded.patient is not a great historian but she has been complaining of fatigue, and not feeling well. Her son insisted that she comes into the ER.upon her initial evaluation in the ER, patient was noted to be hyponatremic with a sodium of 105. She was also noted to have heterogeneous liver possible cirrhosis and possible hepatitis. Patient drinks on the average of one bottle of wine a day.CT abdomen and pelvis also showed moderate abdominal ascites which is a new compared to previous exam done in 2019.at any rate considering her profound hyponatremia I was asked to see the patient on consultation. And she was admitted to the ICU. Started initially on 3% saline as per nephrology to get her sodium slowly up to the range of 120/125 Review of Systems constitutional: Weakness fatigue and weight loss. Gastrointestinal: abdominal distention and nausea and vomiting and constipation. GENITOURINARY: no dysuria frequency or urgency MUSCULOSKELETAL:negative. SKIN: No rashes. negative ENDOCRINE: negative PSYCHIATRIC: negative NEUROLOGY: negative ENT:negative CONSTITUTIONAL: generalized weakness and fatigue. Past Medical History Past Medical History: COPD, GERD/Reflux, Hyperlipidemia, Hypertension, Rheumatoid Arthritis (RA) Additional Past Medical History / Comment(s): Pancreatitis History of Any Multi-Drug Resistant Organisms: None Reported Past Surgical History: Hysterectomy, Tubal Ligation Additional Past Surgical History / Comment(s): One ovary removed, stomach muscles repaired, Past Anesthesia/Blood Transfusion Reactions: No Reported Reaction Past Psychological History: No Psychological Hx Reported Additional Psychological History / Comment(s): Patient lives in own home. Independent. Son helps with groceries. Patient states she lives with son Robbin Manrique Smoking Status: Former smoker Past Alcohol Use History: Daily Additional Past Alcohol Use History / Comment(s): Patient drinks 4 beers and 1 glass of wine every day. Past Drug Use History: None Reported - Past Family History Father Family Medical History: Cancer Additional Family Medical History / Comment(s): Throat cancer and . Mother Additional Family Medical History / Comment(s): Brain aneurysm and . Son(s) Family Medical History: Hypertension Additional Family Medical History / Comment(s): Oldest son has HTN. Medications and Allergies Home Medications Medication Instructions Recorded Confirmed Type Albuterol Sulfate [Proair Hfa] 1 - 2 puff INHALATION RT-Q6H PRN 06/10/19 06/26/22 History Metoprolol Tartrate 25 mg PO DAILY 06/10/19 06/26/22 History Milk Thistle 150 mg PO DAILY 06/10/19 06/26/22 History [place]-3 Fatty Acids/Fish Oil [Fish 1 cap PO BID 06/10/19 06/26/22 History Oil 1,000 mg Softgel] lisinopriL 20 mg PO DAILY 06/10/19 06/26/22 History Metoprolol Tartrate [Lopressor] 25 mg PO HS PRN 06/26/22 06/26/22 History Omeprazole 20 mg PO DAILY 06/26/22 06/26/22 History Allergies Allergy/AdvReac Type Severity Reaction Status Date / Time No Known Allergies Allergy Verified 06/26/22 22:36 Physical Exam Vitals: Vital Signs Temp Pulse Resp BP Pulse Ox 06/27/22 14:00 95 12 98/45 97 06/27/22 13:00 98 13 100/51 96 06/27/22 12:51 93 06/27/22 12:39 96 06/27/22 12:00 98.2 F 87 11 L 90/53 98 06/27/22 11:00 86 11 L 89/46 97 06/27/22 10:00 98 16 74/50 95 06/27/22 09:00 17 86/43 84 L 06/27/22 08:00 98 F 94 12 86/45 97 06/27/22 07:55 97 06/27/22 07:29 97 06/27/22 07:28 97 06/27/22 07:00 91 10 L 78/57 94 L 06/27/22 06:00 91 10 L 93/58 96 06/27/22 05:00 91 10 L 101/59 95 06/27/22 04:00 92 9 L 98/54 95 06/27/22 03:00 90 10 L 105/66 95 06/27/22 02:00 93 11 L 101/71 96 06/27/22 01:00 97.8 F 104 H 10 L 117/54 06/27/22 00:40 106 H 26 H 115/70 06/27/22 00:22 97.7 F 104 H 18 93/69 99 06/27/22 00:20 97.8 F 14 06/26/22 23:09 101 H 20 100/70 100 06/26/22 20:11 102 H 22 130/66 99 06/26/22 18:05 97.7 F 105 H 20 119/74 98 Intake and Output 06/27/22 06/27/22 06/27/22 06:59 14:59 22:59 Intake Total 500 325 40 Output Total 265 33 25 Balance 235 292 15 Intake: Intake, IV Titration 500 325 40 Amount Magnesium Sulfate-D5w Pmx 300 1 gm In Dextrose/Water 1 100ml.bag @ 100 mls/hr IVPB Q1H [facility] Rx#: [id number] Sodium Chloride 3%( 200 325 40 Hypertonic) 500 ml @ 40 mls/hr IV .[id number] [facility] Rx #:[id number] Output: Urine 265 33 25 Other: Voiding Method Indwelling Catheter Indwelling Catheter Weight 72.575 kg General appearance: revealed 71-year-old female in no distress.on room air. HET: Head is normocephalic and atraumatic. Conjunctiva pink. Sclera anicteric. Neck: Supple without lymphadenopathy. Trachea midline. Heart:normal S1 and S2, no S3 gallop. Lungs: symmetrical chest expansion, clear throughout no crackles or rhonchi or wheezes Abdomen: obese, soft, slightly distended, no rebound no guarding. Skin: No rashes. Extremities: no clubbing edema or cyanosis. Neurological: alert oriented 3 focal deficits Results - Laboratory Findings CBC and BMP: 06/27/22 04:33 06/27/22 11:05 PT/INR, D-dimer PT 18.7 sec (9.0-12.0) H 06/26/22 21:06 INR 1.8 (<1.2) H 06/26/22 21:06 Abnormal lab findings: Abnormal Labs 06/26/22 06/26/22 06/26/22 18:42 18:42 19:02 RBC 3.35 L Hct MCV 107.0 H MCH 38.1 H PT INR APTT Sodium 106 L* Chloride 71 L* Carbon Dioxide 19 L BUN 3 L Glucose 116 H Plasma Lactic Acid Julio Cesar 3.2 H* Calcium 7.7 L Magnesium Total Bilirubin 6.6 H AST 190 H ALT 51 H Alkaline Phosphatase 135 H Total Protein Albumin 3.3 L TSH Urine Appearance Ur Specific [place] Urine Protein Urine Blood Ur Leukocyte Esterase Urine RBC Urine WBC Urine Bacteria Urine Mucus 06/26/22 06/26/22 06/26/22 19:02 21:00 21:06 RBC Hct MCV MCH PT 18.7 H INR 1.8 H APTT 38.6 H 38.3 H Sodium 105 L* Chloride 71 L* Carbon Dioxide 20 L BUN 4 L Glucose 101 H Plasma Lactic Acid Julio Cesar Calcium 7.7 L Magnesium 0.9 L* Total Bilirubin AST ALT Alkaline Phosphatase Total Protein Albumin TSH Urine Appearance Ur Specific [place] Urine Protein Urine Blood Ur Leukocyte Esterase Urine RBC Urine WBC Urine Bacteria Urine Mucus 06/26/22 06/26/22 06/27/22 21:53 22:30 01:04 RBC Hct MCV MCH PT INR APTT Sodium 104 L* Chloride Carbon Dioxide BUN Glucose Plasma Lactic Acid Julio Cesar 2.5 H* 2.2 H* Calcium Magnesium Total Bilirubin AST ALT Alkaline Phosphatase Total Protein Albumin TSH Urine Appearance Ur Specific [place] Urine Protein Urine Blood Ur Leukocyte Esterase Urine RBC Urine WBC Urine Bacteria Urine Mucus 06/27/22 06/27/22 06/27/22 02:29 04:33 04:33 RBC 3.08 L Hct 33.5 L MCV 108.8 H MCH 38.1 H PT INR APTT Sodium 106 L* 107 L* Chloride 75 L Carbon Dioxide 21 L BUN 4 L Glucose 102 H Plasma Lactic Acid Julio Cesra Calcium 7.3 L Magnesium Total Bilirubin 5.6 H AST 162 H ALT 46 H Alkaline Phosphatase Total Protein 6.0 L Albumin 2.6 L TSH Urine Appearance Ur Specific [place] Urine Protein Urine Blood Ur Leukocyte Esterase Urine RBC Urine WBC Urine Bacteria Urine Mucus 06/27/22 06/27/22 06/27/22 06:47 08:06 10:57 RBC Hct MCV MCH PT INR APTT Sodium 106 L* 108 L* Chloride Carbon Dioxide BUN Glucose Plasma Lactic Acid Julio Cesar Calcium Magnesium Total Bilirubin AST ALT Alkaline Phosphatase Total Protein Albumin TSH 6.740 H Urine Appearance Cloudy H Ur Specific [place] 1.050 H Urine Protein 1+ H Urine Blood Large H Ur Leukocyte Esterase Moderate H Urine RBC 147 H Urine WBC 28 H Urine Bacteria Rare H Urine Mucus Rare H 06/27/22 11:05 RBC Hct MCV MCH PT INR APTT Sodium 106 L* Chloride Carbon Dioxide BUN Glucose Plasma Lactic Acid Julio Cesar Calcium Magnesium Total Bilirubin AST ALT Alkaline Phosphatase Total Protein Albumin TSH Urine Appearance Ur Specific [place] Urine Protein Urine Blood Ur Leukocyte Esterase Urine RBC Urine WBC Urine Bacteria Urine Mucus - Diagnostic Findings Chest x-ray: image reviewed (as noted in HPI) Additional studies: CT abdomen and pelvis as noted in HPI Assessment and Plan Assessment: impression: Severe hyponatremia secondary to excessive alcohol use, poor salt intake, and excessive fluid intake alcoholism Suspect liver cirrhosis and ascites Benign essential hypertension Hypomagnesemia Recommendation: Continue 3% saline for now and continue to monitor sodium, except up to 10 mEq per 24 hours Check serum cortisol and TSH Slow correction of sodium GI to see for evaluation of liver and alcoholic hepatitis. Monitor in the ICU for now until her sodium is up in the 120 range. Seizure precautions secondary to hyponatremia. Will continue to follow. Prognosis is guarded. Ultrasound of the abdomen was ordered, if there is excessive ascites may consider paracentesis. GI consultation. Time with Patient: Greater than 30
[2022-06-27 15:50] LABS: T4, Free (Free Thyroxine) 1.78 ng/dL (0.78-2.19)
[2022-06-27 16:13] LABS: Appearance,Urine Cloudy (Clear); Bacteria,Urine Rare /hpf; Bilirubin,Urine Negative (Negative); Blood,Urine Large (Negative); Color,Urine Yellow; Glucose,Urine (UA) Negative (Negative); Hyaline Casts,Urine 1 /lpf (0-2); Ketones,Urine Negative (Negative); Leukocyte Esterase,Urine Small (Negative); Mucus,Urine Rare /hpf; Nitrite,Urine Negative (Negative); Protein,Urine Trace (Negative); RBC,Urine 7 /hpf (0-5); Specific Gravity,Urine 1.037 (1.001-1.035); WBC,Urine 14 /hpf (0-5)
[2022-06-27] MEDS ORDERED: LORazepam 1 MG/0.5 ML VIAL IV PRN (18:11)
[2022-06-27] MEDS: NOREPINEPHRINE 8 MG in SODIUM CHLORIDE 0.9% 250 ML IV SCH (19:01)
[2022-06-27] MEDS: MORPHINE SULFATE 4 MG/ML SYRINGE IV PRN (20:08)
--- NOTE | 2022-06-27 20:20 | P.HPIM ---
History of Present Illness H&P Date: 06/27/22 Chief Complaint: Nausea and vomiting Patient is a 71-year-old female with a known history of hypertension, hyperlipidemia, COPD, GERD, rheumatoid arthritis and daily alcohol use and prior history of smoking came to ER with complaints of nausea and vomiting for the past 1 month and is generalized weakness. Patient was also having decreased urine output. Also complains of increased abdominal girth. Patient otherwise denies any fever or chills. No complaints of cough or sputum production. No headache or dizziness or lightheadedness. Denies any hematemesis or melena. On admission sodium level found to be [address] of the abdomen pelvis showed heterogenicity in the liver appeared new compared to wall exam and could be related to hepatitis or cirrhosis. There is moderate abdominal ascites which is new compared to old exam. Sigmoid diverticulosis without diverticulitis. There is clearing of the inflammatory changes anterior to the pancreatic head compatible exam. Chest x-ray showed there is some mild linear infiltrate and atelectasis left lung base. No heart failure. EKG showed sinus tachycardia Ultrasound of the abdomen showed ascites. Laboratory data showed WBC 8.3 hemoglobin 12.7 MCV 107.0 and platelets 160 Sodium 106 potassium 4.7 chloride 71 bicarb is 19 and BUN 3 and creatinine 0.59 lactic acid 3.12 calcium 7.7 Total bilirubin level is 6.6 and AST 190 ALT 51 and alk phos 135 Troponin 0.015 and proBNP 711 Amylase 70 lipase 244 Hepatitis panel not detected. Coronavirus PCR not detected On admission patient was tachycardic and hypotensive with blood pressure 93/69 pulse ox 99% on room air. Review of Systems Constitutional: Patient denies any fever or chills . Patient does have generalized weakness. Abdomen: Patient complains of nausea vomiting and abdominal discomfort no diarrhea. Cardiovascular: Patient denies any chest pain or short of breath no palpitations. Respiratory: patient denied any cough . no sputum production. No shortness of breath Neurologic: Patient denied any numbness or tingling headache. Musculoskeletal: Patient denies any complaints of joint swelling or deformity. Skin: Negative Psychiatric: Negative Endocrine: No heat or cold intolerance. No recent weight gain. Genitourinary: No dysuria or hematuria. All other 14 point ROS negative except the above Past Medical History Past Medical History: COPD, GERD/Reflux, Hyperlipidemia, Hypertension, Rheumatoid Arthritis (RA) Additional Past Medical History / Comment(s): Pancreatitis History of Any Multi-Drug Resistant Organisms: None Reported Past Surgical History: Hysterectomy, Tubal Ligation Additional Past Surgical History / Comment(s): One ovary removed, stomach muscles repaired, Past Anesthesia/Blood Transfusion Reactions: No Reported Reaction Past Psychological History: No Psychological Hx Reported Additional Psychological History / Comment(s): Patient lives in own home. Independent. Son helps with groceries. Patient states she lives with son Robbin Manrique Smoking Status: Former smoker Past Alcohol Use History: Daily Additional Past Alcohol Use History / Comment(s): Patient drinks 4 beers and 1 glass of wine every day. Past Drug Use History: None Reported - Past Family History Father Family Medical History: Cancer Additional Family Medical History / Comment(s): Throat cancer and . Mother Additional Family Medical History / Comment(s): Brain aneurysm and . Son(s) Family Medical History: Hypertension Additional Family Medical History / Comment(s): Oldest son has HTN. Medications and Allergies Home Medications Medication Instructions Recorded Confirmed Type Albuterol Sulfate [Proair Hfa] 1 - 2 puff INHALATION RT-Q6H PRN 06/10/19 06/26/22 History Metoprolol Tartrate 25 mg PO DAILY 06/10/19 06/26/22 History Milk Thistle 150 mg PO DAILY 06/10/19 06/26/22 History Renner-3 Fatty Acids/Fish Oil [Fish 1 cap PO BID 06/10/19 06/26/22 History Oil 1,000 mg Softgel] lisinopriL 20 mg PO DAILY 06/10/19 06/26/22 History Metoprolol Tartrate [Lopressor] 25 mg PO HS PRN 06/26/22 06/26/22 History Omeprazole 20 mg PO DAILY 06/26/22 06/26/22 History Allergies Allergy/AdvReac Type Severity Reaction Status Date / Time No Known Allergies Allergy Verified 06/26/22 22:36 Physical Exam Vitals: Vital Signs Temp Pulse Resp BP Pulse Ox 06/27/22 08:00 98 F 94 12 86/45 97 06/27/22 07:55 97 06/27/22 07:29 97 06/27/22 07:28 97 06/27/22 07:00 91 10 L 78/57 94 L 06/27/22 06:00 91 10 L 93/58 96 06/27/22 05:00 91 10 L 101/59 95 06/27/22 04:00 92 9 L 98/54 95 06/27/22 03:00 90 10 L 105/66 95 06/27/22 02:00 93 11 L 101/71 96 06/27/22 01:00 97.8 F 104 H 10 L 117/54 06/27/22 00:40 106 H 26 H 115/70 06/27/22 00:22 97.7 F 104 H 18 93/69 99 06/27/22 00:20 97.8 F 14 06/26/22 23:09 101 H 20 100/70 100 06/26/22 20:11 102 H 22 130/66 99 06/26/22 18:05 97.7 F 105 H 20 119/74 98 Intake and Output 06/26/22 06/27/22 06/27/22 22:59 06:59 14:59 Intake Total 500 105 Output Total 265 0 Balance 235 105 Intake: Intake, IV Titration 500 105 Amount Magnesium Sulfate-D5w Pmx 300 1 gm In Dextrose/Water 1 100ml.bag @ 100 mls/hr IVPB Q1H [facility] Rx#: [id number] Sodium Chloride 3%( 200 105 Hypertonic) 500 ml @ 35 mls/hr IV .[id number] [facility] Rx #:[id number] Output: Urine 265 0 Other: Voiding Method Indwelling Catheter Indwelling Catheter Weight 72.575 kg 72.575 kg PHYSICAL EXAMINATION: Patient is lying in the bed comfortably, no acute distress, awake alert and oriented, generalized weakness... HEENT: Normocephalic. Neck is supple. Pupils reactive. Nostrils clear. Oral cavity is moist. Neck reveals no JVD, carotid bruits, or thyromegaly. CHEST EXAMINATION: Trachea is central. Symmetrical expansion. Lung cervantes clear to auscultation and percussion. CARDIAC: Normal S1, S2 with no gallops. No murmurs ABDOMEN: Soft. Bowel sounds present. Discharge mucositis. Nontender. No organomegaly. No abdominal bruits. Extremities: 2+ edema. No clubbing or cyanosis Neurologically awake, alert, oriented x2-3 with well-coordinated movements. No gross focal deficits noted Skin: No rash or skin lesions. Psychiatric: Coperative. Could not be assessed completely l, Musculoskeletal: No joint swelling or deformity. Normal range of motion. Results CBC & Chem 7: 07/01/22 05:05 07/02/22 20:06 Labs: Abnormal Lab Results - Last 24 Hours (Table) 06/26/22 06/26/22 06/26/22 Range/Units 18:42 18:42 19:02 RBC 3.35 L (3.80-5.40) m/uL Hct (34.0-46.0) % MCV 107.0 H (80.0-100.0) fL MCH 38.1 H (25.0-35.0) pg PT (9.0-12.0) sec INR (<1.2) APTT (22.0-30.0) sec Sodium 106 L* (137-145) mmol/L Chloride 71 L* (98-107) mmol/L Carbon Dioxide 19 L (22-30) mmol/L BUN 3 L (7-17) mg/dL Glucose 116 H (74-99) mg/dL Plasma Lactic Acid Julio Cesar 3.2 H* (0.7-2.0) mmol/L Calcium 7.7 L (8.4-10.2) mg/dL Magnesium (1.6-2.3) mg/dL Total Bilirubin 6.6 H (0.2-1.3) mg/dL AST 190 H (14-36) U/L ALT 51 H (4-34) U/L Alkaline Phosphatase 135 H (38-126) U/L Total Protein (6.3-8.2) g/dL Albumin 3.3 L (3.5-5.0) g/dL 06/26/22 06/26/22 06/26/22 Range/Units 19:02 21:00 21:06 RBC (3.80-5.40) m/uL Hct (34.0-46.0) % MCV (80.0-100.0) fL MCH (25.0-35.0) pg PT 18.7 H (9.0-12.0) sec INR 1.8 H (<1.2) APTT 38.6 H 38.3 H (22.0-30.0) sec Sodium 105 L* (137-145) mmol/L Chloride 71 L* (98-107) mmol/L Carbon Dioxide 20 L (22-30) mmol/L BUN 4 L (7-17) mg/dL Glucose 101 H (74-99) mg/dL Plasma Lactic Acid Julio Cesar (0.7-2.0) mmol/L Calcium 7.7 L (8.4-10.2) mg/dL Magnesium 0.9 L* (1.6-2.3) mg/dL Total Bilirubin (0.2-1.3) mg/dL AST (14-36) U/L ALT (4-34) U/L Alkaline Phosphatase (38-126) U/L Total Protein (6.3-8.2) g/dL Albumin (3.5-5.0) g/dL 06/26/22 06/26/22 06/27/22 Range/Units 21:53 22:30 01:04 RBC (3.80-5.40) m/uL Hct (34.0-46.0) % MCV (80.0-100.0) fL MCH (25.0-35.0) pg PT (9.0-12.0) sec INR (<1.2) APTT (22.0-30.0) sec Sodium 104 L* (137-145) mmol/L Chloride (98-107) mmol/L Carbon Dioxide (22-30) mmol/L BUN (7-17) mg/dL Glucose (74-99) mg/dL Plasma Lactic Acid [place]esar 2.5 H* 2.2 H* (0.7-2.0) mmol/L Calcium (8.4-10.2) mg/dL Magnesium (1.6-2.3) mg/dL Total Bilirubin (0.2-1.3) mg/dL AST (14-36) U/L ALT (4-34) U/L Alkaline Phosphatase (38-126) U/L Total Protein (6.3-8.2) g/dL Albumin (3.5-5.0) g/dL 06/27/22 06/27/22 06/27/22 Range/Units 02:29 04:33 04:33 RBC 3.08 L (3.80-5.40) m/uL Hct 33.5 L (34.0-46.0) % MCV 108.8 H (80.0-100.0) fL MCH 38.1 H (25.0-35.0) pg PT (9.0-12.0) sec INR (<1.2) APTT (22.0-30.0) sec Sodium 106 L* 107 L* (137-145) mmol/L Chloride 75 L (98-107) mmol/L Carbon Dioxide 21 L (22-30) mmol/L BUN 4 L (7-17) mg/dL Glucose 102 H (74-99) mg/dL Plasma Lactic Acid Julio Cesar (0.7-2.0) mmol/L Calcium 7.3 L (8.4-10.2) mg/dL Magnesium (1.6-2.3) mg/dL Total Bilirubin 5.6 H (0.2-1.3) mg/dL AST 162 H (14-36) U/L ALT 46 H (4-34) U/L Alkaline Phosphatase (38-126) U/L Total Protein 6.0 L (6.3-8.2) g/dL Albumin 2.6 L (3.5-5.0) g/dL 06/27/22 06/27/22 Range/Units 06:47 08:06 RBC (3.80-5.40) m/uL Hct (34.0-46.0) % MCV (80.0-100.0) fL MCH (25.0-35.0) pg PT (9.0-12.0) sec INR (<1.2) APTT (22.0-30.0) sec Sodium 106 L* 108 L* (137-145) mmol/L Chloride (98-107) mmol/L Carbon Dioxide (22-30) mmol/L BUN (7-17) mg/dL Glucose (74-99) mg/dL Plasma Lactic Acid [place]esar (0.7-2.0) mmol/L Calcium (8.4-10.2) mg/dL Magnesium (1.6-2.3) mg/dL Total Bilirubin (0.2-1.3) mg/dL AST (14-36) U/L ALT (4-34) U/L Alkaline Phosphatase (38-126) U/L Total Protein (6.3-8.2) g/dL Albumin (3.5-5.0) g/dL Thrombosis Risk Factor Assmnt - DVT/VTE Prophylaxis DVT/VTE Prophylaxis: Pharmacologic Prophylaxis ordered Assessment and Plan Assessment: Hyponatremia likely hypoosmolar with decreased oral intake. Intractable nausea and vomiting and decreased oral intake Acute alcoholic hepatitis Ascites Liver cirrhosis likely alcohol related Hyperbilirubinemia Alcohol abuse Hypomagnesemia 0.9 Macrocytosis MCV 107.0 due to alcohol abuse DVT prophylax with heparin subcu GI prophylaxis Plan: Patient is being monitored in the MICU. Patient will be continued on hypertonic 3% saline and check sodium level every 2 hours. Serum osmolality, urine osmolarity and sodium level was ordered. TSH and cortisol levels ordered. Symptomatic management for nausea and vomiting. Continue PPI. Started on clear liquid diet and follow-up daily CBC and CMP. Nephrology and GI was consulted. Continue to follow closely. Prognosis . Time with Patient: Greater than 30
[2022-06-28] MEDS: ALBUTEROL NEBULIZED 2.5 MG/3 ML INHALATION SCH ×4 (00:09→20:44)
[2022-06-28] MEDS: LORazepam 1 MG/0.5 ML VIAL IV PRN ×3 (01:09→14:03)
[2022-06-28] MEDS ORDERED: SODIUM CHLORIDE 3%(HYPERTONIC) 500 ML IV SCH ×2 (03:00→17:30)
[2022-06-28] MEDS: HYDROCORTISONE SUCCINATE 100 MG/2 ML VIAL IV SCH ×2 (04:23→16:57)
[2022-06-28 05:28] LABS: HCT 31.8 % (34.0-46.0); HGB 11.5 gm/dL (11.4-16.0); MCH 39.1 pg (25.0-35.0); MCHC 36.1 g/dL (31.0-37.0); MCV 108.4 fL (80.0-100.0); Macrocytosis Moderate; Mean Platelet Volume 8.3; Platelet Count 145 k/uL (150-450); RBC 2.93 m/uL (3.80-5.40); RDW 12.3 % (11.5-15.5); WBC 9.5 k/uL (3.8-10.6)
[2022-06-28 05:29] LABS: Calcium 7.3 mg/dL (8.4-10.2); Potassium 4.6 mmol/L (3.5-5.1)
[2022-06-28 05:57] LABS: Band Neutrophils % 1 %; Lymphocytes # (M) 0.38 k/uL (1.0-4.8); Monocytes # (M) 0.86 k/uL (0-1.0); Neutrophils % (M) 86 %; Nucleated Red Blood Cells 0 /100 WBC (0-0); Total Cells Counted 100
[2022-06-28 05:58] LABS: Anisocytosis (M) Present; Crenated RBC Present; Poikilocytosis (M) Present; Target Cells Present
[2022-06-28] MEDS ORDERED: FUROSEMIDE 10 MG/ML 4 ML VIAL IV SCH (09:00)
[2022-06-28] MEDS: PANTOPRAZOLE 40 MG/10 ML VIAL IVP SCH (09:14)
[2022-06-28] MEDS: MIDODRINE 5 MG TAB PO SCH ×3 (09:15→16:55)
[2022-06-28] MEDS: MULTIVITAMINS, THERA 1 EACH TAB PO SCH (09:15)
[2022-06-28] MEDS: FOLIC ACID 1 MG TAB PO SCH (09:15)
[2022-06-28] MEDS: THIAMINE 100 MG TAB PO SCH (09:15)
--- NOTE | 2022-06-28 09:59 | P.PN ---
Subjective Patient is seen in follow-up for hyponatremia. Sodium level 114 this morning. Currently off IV fluids. Urine output 35 and 40 mL an hour for the last 2 hours. Blood pressure stable. Oral intake poor. Vital signs are stable. General: No acute distress. HEENT: Head exam is unremarkable. LUNGS: Breath sounds decreased. HEART: Tachycardic. ABDOMEN: Soft, distention noted. EXTREMITITES: 2+ edema. Objective - Vital Signs Vital signs: Vital Signs Temp 98.0 F 06/28/22 08:00 Pulse 114 H 06/28/22 09:00 Resp 16 06/28/22 09:00 BP 124/78 06/28/22 09:00 Pulse Ox 96 06/28/22 09:00 FiO2 Intake & Output 06/27/22 06/28/22 06/28/22 18:59 06:59 18:59 Intake Total 445 480 Output Total 58 265 75 Balance 387 215 -75 Weight 84.8 kg Intake: IV 480 Sodium Chloride 3%( 480 Hypertonic) 500 ml @ 40 mls/hr IV .[id number] [facility] Rx #:[id number] Intake, IV Titration 445 Amount Sodium Chloride 3%( 445 Hypertonic) 500 ml @ 40 mls/hr IV .[id number] [facility] Rx #:[id number] Output: Urine 58 265 75 Other: Voiding Method Indwelling Catheter Indwelling Catheter - Labs CBC & Chem 7: 06/28/22 04:45 06/28/22 06:42 Labs: Abnormal Lab Results - Last 24 Hours (Table) 06/27/22 06/27/22 06/27/22 Range/Units 08:06 10:57 10:57 RBC (3.80-5.40) m/uL Hct (34.0-46.0) % MCV (80.0-100.0) fL MCH (25.0-35.0) pg Plt Count (150-450) k/uL Neutrophils # (Manual) (1.3-7.7) k/uL Lymphocytes # (Manual) (1.0-4.8) k/uL Sodium 108 L* (137-145) mmol/L Chloride (98-107) mmol/L Carbon Dioxide (22-30) mmol/L BUN (7-17) mg/dL Glucose (74-99) mg/dL Osmolality 242 L* (280-301) mosm/kg Calcium (8.4-10.2) mg/dL TSH 6.740 H (0.465-4.680) mIU/L Urine Appearance Cloudy H (Clear) Ur Specific [place] 1.050 H (1.001-1.035) Urine Protein 1+ H (Negative) Urine Blood Large H (Negative) Ur Leukocyte Esterase Moderate H (Negative) Urine RBC 147 H (0-5) /hpf Urine WBC 28 H (0-5) /hpf Urine Bacteria Rare H (None) /hpf Urine Mucus Rare H (None) /hpf Ur Random Sodium <20 L (40-220) mmol/L 06/27/22 06/27/22 06/27/22 Range/Units 11:05 15:28 15:40 RBC (3.80-5.40) m/uL Hct (34.0-46.0) % MCV (80.0-100.0) fL MCH (25.0-35.0) pg Plt Count (150-450) k/uL Neutrophils # (Manual) (1.3-7.7) k/uL Lymphocytes # (Manual) (1.0-4.8) k/uL Sodium 106 L* 110 L* (137-145) mmol/L Chloride (98-107) mmol/L Carbon Dioxide (22-30) mmol/L BUN (7-17) mg/dL Glucose (74-99) mg/dL Osmolality (280-301) mosm/kg Calcium (8.4-10.2) mg/dL TSH (0.465-4.680) mIU/L Urine Appearance Cloudy H (Clear) Ur Specific [place] 1.037 H (1.001-1.035) Urine Protein Trace H (Negative) Urine Blood Large H (Negative) Ur Leukocyte Esterase Small H (Negative) Urine RBC 7 H (0-5) /hpf Urine WBC 14 H (0-5) /hpf Urine Bacteria Rare H (None) /hpf Urine Mucus Rare H (None) /hpf Ur Random Sodium (40-220) mmol/L 06/27/22 06/27/22 06/27/22 Range/Units 17:29 20:59 22:41 RBC (3.80-5.40) m/uL Hct (34.0-46.0) % MCV (80.0-100.0) fL MCH (25.0-35.0) pg Plt Count (150-450) k/uL Neutrophils # (Manual) (1.3-7.7) k/uL Lymphocytes # (Manual) (1.0-4.8) k/uL Sodium 110 L* 112 L* 111 L* (137-145) mmol/L Chloride (98-107) mmol/L Carbon Dioxide (22-30) mmol/L BUN (7-17) mg/dL Glucose (74-99) mg/dL Osmolality (280-301) mosm/kg Calcium (8.4-10.2) mg/dL TSH (0.465-4.680) mIU/L Urine Appearance (Clear) Ur Specific [place] (1.001-1.035) Urine Protein (Negative) Urine Blood (Negative) Ur Leukocyte Esterase (Negative) Urine RBC (0-5) /hpf Urine WBC (0-5) /hpf Urine Bacteria (None) /hpf Urine Mucus (None) /hpf Ur Random Sodium (40-220) mmol/L 06/28/22 06/28/22 06/28/22 Range/Units 02:15 04:45 04:45 RBC 2.93 L (3.80-5.40) m/uL Hct 31.8 L (34.0-46.0) % MCV 108.4 H (80.0-100.0) fL MCH 39.1 H (25.0-35.0) pg Plt Count 145 L (150-450) k/uL Neutrophils # (Manual) 8.20 H (1.3-7.7) k/uL Lymphocytes # (Manual) 0.38 L (1.0-4.8) k/uL Sodium 113 L* 114 L* (137-145) mmol/L Chloride 86 L (98-107) mmol/L Carbon Dioxide 18 L (22-30) mmol/L BUN 6 L (7-17) mg/dL Glucose 148 H (74-99) mg/dL Osmolality (280-301) mosm/kg Calcium 7.3 L (8.4-10.2) mg/dL TSH (0.465-4.680) mIU/L Urine Appearance (Clear) Ur Specific [place] (1.001-1.035) Urine Protein (Negative) Urine Blood (Negative) Ur Leukocyte Esterase (Negative) Urine RBC (0-5) /hpf Urine WBC (0-5) /hpf Urine Bacteria (None) /hpf Urine Mucus (None) /hpf Ur Random Sodium (40-220) mmol/L 06/28/22 Range/Units 06:42 RBC (3.80-5.40) m/uL Hct (34.0-46.0) % MCV (80.0-100.0) fL MCH (25.0-35.0) pg Plt Count (150-450) k/uL Neutrophils # (Manual) (1.3-7.7) k/uL Lymphocytes # (Manual) (1.0-4.8) k/uL Sodium 114 L* (137-145) mmol/L Chloride (98-107) mmol/L Carbon Dioxide (22-30) mmol/L BUN (7-17) mg/dL Glucose (74-99) mg/dL Osmolality (280-301) mosm/kg Calcium (8.4-10.2) mg/dL TSH (0.465-4.680) mIU/L Urine Appearance (Clear) Ur Specific [place] (1.001-1.035) Urine Protein (Negative) Urine Blood (Negative) Ur Leukocyte Esterase (Negative) Urine RBC (0-5) /hpf Urine WBC (0-5) /hpf Urine Bacteria (None) /hpf Urine Mucus (None) /hpf Ur Random Sodium (40-220) mmol/L Microbiology - Last 24 Hours (Table) 06/27/22 10:57 Urine Culture - Preliminary Urine,Voided Assessment and Plan Plan: Assessment: 1. Hyponatremia secondary to poor solute intake/excessive fluid intake. Sodium level 106 on admission and dropped with normal saline. Status post 3% saline. Sodium level 114 this morning. Hypervolemic. Cortisol level not low. TSH is 6.7. 2. Alcohol abuse. Concern for alcoholic hepatitis. GI following. CT of the abdomen and pelvis suggestive of hepatitis versus cirrhosis. No hydronephrosis noted. 3. Benign hypertension. Blood pressure has been on the lower side. 4. Ascites noted on CAT scan. 5. Hypomagnesemia from poor intake. Replaced. Better. 6. Volume overload. Plan: Currently off IV fluids. Add IV Lasix 40 mg twice daily. Goal rate of hyponatremia correction 6-7 mEq per 24 hours. IR consulted for paracentesis. Possibly tomorrow. Will give 25 g IV albumin pre-and post-paracentesis. Repeat sodium level this afternoon. Decrease hydrocortisone to twice a day. Increase dose of midodrine and hold for systolic blood pressure greater than 115.
[2022-06-28] MEDS: HEPARIN SODIUM,PORCINE/PF 5,000 UNIT/0.5 ML SYRINGE SQ SCH ×2 (10:05→16:54)
[2022-06-28] MEDS: ALBUMIN HUMAN 25% 50 ML in EMPTY BAG 1 BAG IVPB SCH ×2 (12:54→14:04)
--- NOTE | 2022-06-28 12:59 | P.PN ---
Subjective Progress Note Date: 06/28/22 Principal diagnosis: Severe hyponatremia this is a 71-year-old female, heavy drinker, patient drinks on a daily basis, brought into the hospital with one month history of nausea and vomiting, constipation, and her abdomen has been gradually getting more and more distended.patient is not a great historian but she has been complaining of fatigue, and not feeling well. Her son insisted that she comes into the ER.upon her initial evaluation in the ER, patient was noted to be hyponatremic with a sodium of 105. She was also noted to have heterogeneous liver possible cirrhosis and possible hepatitis. Patient drinks on the average of one bottle of wine a day.CT abdomen and pelvis also showed moderate abdominal ascites which is a new compared to previous exam done in 2019.at any rate considering her profound hyponatremia I was asked to see the patient on consultation. And she was admitted to the ICU. Started initially on 3% saline as per nephrology to get her sodium slowly up to the range of 120/125 Reevaluated today on 06/28/22, patient remains in the ICU, she is feeling better, she is on room air, does not seem to be in any distress, patient is supposed to undergo paracentesis today. Her sodium is correcting nicely and slowly. Patient is now not receiving any IV fluids. And again her sodium seems to be coming up nicely today's sodium is 114, patient was admitted with a sodium of 104 on admission patient denies any shortness of breath no cough no wheezing no nausea no vomiting no abdominal pain no melena no hematemesis remains on the CIWA protocol, and seems to be doing well with Objective - Vital Signs Vital signs: Vital Signs Temp 98.0 F 06/28/22 08:00 Pulse 108 H 06/28/22 12:45 Resp 18 06/28/22 12:45 BP 112/62 06/28/22 12:45 Pulse Ox 94 L 06/28/22 12:45 FiO2 Intake & Output 06/27/22 06/28/22 06/28/22 18:59 06:59 18:59 Intake Total 445 480 Output Total 58 265 197 Balance 387 215 -197 Weight 84.8 kg Intake: IV 480 Sodium Chloride 3%( 480 Hypertonic) 500 ml @ 40 mls/hr IV .[id number] [facility] Rx #:[id number] Intake, IV Titration 445 Amount Sodium Chloride 3%( 445 Hypertonic) 500 ml @ 40 mls/hr IV .[id number] [facility] Rx #:[id number] Output: Urine 58 265 197 Other: Voiding Method Indwelling Catheter Indwelling Catheter Indwelling Catheter - Exam General appearance: revealed 71-year-old female in no distress.on room air. HET: Head is normocephalic and atraumatic. Conjunctiva pink. Sclera anicteric. Neck: Supple without lymphadenopathy. Trachea midline. Heart:normal S1 and S2, no S3 gallop. Lungs: symmetrical chest expansion, clear throughout no crackles or rhonchi or wheezes Abdomen: obese, soft, slightly distended, no rebound no guarding. Positive ascites. Skin: No rashes. Extremities: no clubbing edema or cyanosis. Neurological: alert oriented 3 focal deficits - Labs CBC & Chem 7: 06/28/22 04:45 06/28/22 06:42 Labs: Abnormal Lab Results - Last 24 Hours (Table) 06/27/22 06/27/22 06/27/22 Range/Units 08:06 10:57 15:28 RBC (3.80-5.40) m/uL Hct (34.0-46.0) % MCV (80.0-100.0) fL MCH (25.0-35.0) pg Plt Count (150-450) k/uL Neutrophils # (Manual) (1.3-7.7) k/uL Lymphocytes # (Manual) (1.0-4.8) k/uL Sodium 108 L* 110 L* (137-145) mmol/L Chloride (98-107) mmol/L Carbon Dioxide (22-30) mmol/L BUN (7-17) mg/dL Glucose (74-99) mg/dL Osmolality 242 L* (280-301) mosm/kg Calcium (8.4-10.2) mg/dL TSH 6.740 H (0.465-4.680) mIU/L Urine Appearance (Clear) Ur Specific [place] (1.001-1.035) Urine Protein (Negative) Urine Blood (Negative) Ur Leukocyte Esterase (Negative) Urine RBC (0-5) /hpf Urine WBC (0-5) /hpf Urine Bacteria (None) /hpf Urine Mucus (None) /hpf Ur Random Sodium <20 L (40-220) mmol/L 06/27/22 06/27/22 06/27/22 Range/Units 15:40 17:29 20:59 RBC (3.80-5.40) m/uL Hct (34.0-46.0) % MCV (80.0-100.0) fL MCH (25.0-35.0) pg Plt Count (150-450) k/uL Neutrophils # (Manual) (1.3-7.7) k/uL Lymphocytes # (Manual) (1.0-4.8) k/uL Sodium 110 L* 112 L* (137-145) mmol/L Chloride (98-107) mmol/L Carbon Dioxide (22-30) mmol/L BUN (7-17) mg/dL Glucose (74-99) mg/dL Osmolality (280-301) mosm/kg Calcium (8.4-10.2) mg/dL TSH (0.465-4.680) mIU/L Urine Appearance Cloudy H (Clear) Ur Specific [place] 1.037 H (1.001-1.035) Urine Protein Trace H (Negative) Urine Blood Large H (Negative) Ur Leukocyte Esterase Small H (Negative) Urine RBC 7 H (0-5) /hpf Urine WBC 14 H (0-5) /hpf Urine Bacteria Rare H (None) /hpf Urine Mucus Rare H (None) /hpf Ur Random Sodium (40-220) mmol/L 06/27/22 06/28/22 06/28/22 Range/Units 22:41 02:15 04:45 RBC 2.93 L (3.80-5.40) m/uL Hct 31.8 L (34.0-46.0) % MCV 108.4 H (80.0-100.0) fL MCH 39.1 H (25.0-35.0) pg Plt Count 145 L (150-450) k/uL Neutrophils # (Manual) 8.20 H (1.3-7.7) k/uL Lymphocytes # (Manual) 0.38 L (1.0-4.8) k/uL Sodium 111 L* 113 L* (137-145) mmol/L Chloride (98-107) mmol/L Carbon Dioxide (22-30) mmol/L BUN (7-17) mg/dL Glucose (74-99) mg/dL Osmolality (280-301) mosm/kg Calcium (8.4-10.2) mg/dL TSH (0.465-4.680) mIU/L Urine Appearance (Clear) Ur Specific [place] (1.001-1.035) Urine Protein (Negative) Urine Blood (Negative) Ur Leukocyte Esterase (Negative) Urine RBC (0-5) /hpf Urine WBC (0-5) /hpf Urine Bacteria (None) /hpf Urine Mucus (None) /hpf Ur Random Sodium (40-220) mmol/L 06/28/22 06/28/22 Range/Units 04:45 06:42 RBC (3.80-5.40) m/uL Hct (34.0-46.0) % MCV (80.0-100.0) fL MCH (25.0-35.0) pg Plt Count (150-450) k/uL Neutrophils # (Manual) (1.3-7.7) k/uL Lymphocytes # (Manual) (1.0-4.8) k/uL Sodium 114 L* 114 L* (137-145) mmol/L Chloride 86 L (98-107) mmol/L Carbon Dioxide 18 L (22-30) mmol/L BUN 6 L (7-17) mg/dL Glucose 148 H (74-99) mg/dL Osmolality (280-301) mosm/kg Calcium 7.3 L (8.4-10.2) mg/dL TSH (0.465-4.680) mIU/L Urine Appearance (Clear) Ur Specific [place] (1.001-1.035) Urine Protein (Negative) Urine Blood (Negative) Ur Leukocyte Esterase (Negative) Urine RBC (0-5) /hpf Urine WBC (0-5) /hpf Urine Bacteria (None) /hpf Urine Mucus (None) /hpf Ur Random Sodium (40-220) mmol/L Microbiology - Last 24 Hours (Table) 06/27/22 10:57 Urine Culture - Preliminary Urine,Voided Assessment and Plan Assessment: impression: Severe hyponatremia secondary to excessive alcohol use, poor salt intake, and excessive fluid intake alcoholism Suspect liver cirrhosis and ascites Benign essential hypertension Hypomagnesemia Alcoholic hepatitis Recommendation: Continue to monitor and treat her hyponatremia slowly as per nephrology on the case Slow correction of sodium Paracentesis is likely today. Monitor in the ICU for the next 24 hours Seizure precautions secondary to hyponatremia. Will continue to follow. Prognosis is guarded. Time with Patient: Less than 30
--- NOTE | 2022-06-28 13:26 | US ---
Ultrasound-guided paracentesis. DATE OF EXAM: 06/28/2022 CLINICAL HISTORY: Ascites The procedure was discussed with the patient. The risks, complications, benefits, and alternatives we re discussed and any questions were answered. Informed consent was obtained. The patient was placed s upine on the ultrasound table and prepped and draped in the usual sterile fashion. All elements of maximal barrier technique were utilized. Under ultrasound guidance, access into the right lower quadrant was obtained, via the paracentesis catheter system and direct ultrasound guidanc e. Approximately 3 liters of straw-colored fluid was removed. The patient was stable throughout the proc edure and remained stable upon discharge from Department of Radiology. IMPRESSION: Successful paracentesis under ultrasound guidance.
--- NOTE | 2022-06-28 16:06 | P.PN ---
Subjective Progress Note Date: 06/28/22 Principal diagnosis: Alcoholic hepatitis This a pleasant 71-year-old female who presented to the emergency department yesterday with complaints of nausea and vomiting 1 month duration. She has been having progressively distended abdomen, increased weakness, decreased urine output and bowel movements. On admission patient was found to be hyponatremic with a sodium of 105. She was admitted to the ICU for further evaluation. She was also noted to have heterogeneity of the liver possible cirrhosis versus hepatitis. Gastroenterology was consulted for alcoholic hepatitis. Patient admits to drinking one bottle of wine a day, she states she's been drinking daily for 1 year duration due to pain. Prior to that she states that she drinks 1-2 bottles of wine a week. She is also complaining of abdominal discomfort, nausea and vomiting especially after eating. States she's not been eating well at home, mostly drinking water and not pop. Denies any previous EGD, states that she was told in the past that she had an ulcer but she has not had an EGD performed. 06/28/2022: Patient seen and examined is a follow-up in the ICU. She is very shaky and has tremors today. Other than that patient states she feels okay. Nephrology is following and has ordered a paracentesis. Sodium improving. Patient was started on Lasix 40 mg every 12 hours. No acute changes or name. Objective - Vital Signs Vital signs: Vital Signs Temp 98.0 F 06/28/22 08:00 Pulse 114 H 06/28/22 09:00 Resp 16 06/28/22 09:00 BP 124/78 06/28/22 09:00 Pulse Ox 96 06/28/22 09:00 FiO2 Intake & Output 06/27/22 06/28/22 06/28/22 18:59 06:59 18:59 Intake Total 445 480 Output Total 58 265 75 Balance 387 215 -75 Weight 84.8 kg Intake: IV 480 Sodium Chloride 3%( 480 Hypertonic) 500 ml @ 40 mls/hr IV .[id number] [facility] Rx #:[id number] Intake, IV Titration 445 Amount Sodium Chloride 3%( 445 Hypertonic) 500 ml @ 40 mls/hr IV .[id number] [facility] Rx #:[id number] Output: Urine 58 265 75 Other: Voiding Method Indwelling Catheter Indwelling Catheter - Exam General appearance: The patient is alert, oriented, appears in no acute distress, patient has tremors, shakes. HET: Head is normocephalic and atraumatic. Conjunctiva pink. Sclera anicteric. Neck: Supple without lymphadenopathy. Abdomen: Soft, nontender, distended. No guarding or rigidity. Extremities: Normal skin color and turgor. Bilateral lower extremity edema. Skin: No rashes, jaundice. Neurological: No focal deficits. Alert and oriented x3. - Labs CBC & Chem 7: 06/28/22 04:45 06/28/22 15:02 Labs: Abnormal Lab Results - Last 24 Hours (Table) 06/27/22 06/27/22 06/27/22 Range/Units 08:06 10:57 10:57 RBC (3.80-5.40) m/uL Hct (34.0-46.0) % MCV (80.0-100.0) fL MCH (25.0-35.0) pg Plt Count (150-450) k/uL Neutrophils # (Manual) (1.3-7.7) k/uL Lymphocytes # (Manual) (1.0-4.8) k/uL Sodium 108 L* (137-145) mmol/L Chloride (98-107) mmol/L Carbon Dioxide (22-30) mmol/L BUN (7-17) mg/dL Glucose (74-99) mg/dL Osmolality 242 L* (280-301) mosm/kg Calcium (8.4-10.2) mg/dL TSH 6.740 H (0.465-4.680) mIU/L Urine Appearance Cloudy H (Clear) Ur Specific [place] 1.050 H (1.001-1.035) Urine Protein 1+ H (Negative) Urine Blood Large H (Negative) Ur Leukocyte Esterase Moderate H (Negative) Urine RBC 147 H (0-5) /hpf Urine WBC 28 H (0-5) /hpf Urine Bacteria Rare H (None) /hpf Urine Mucus Rare H (None) /hpf Ur Random Sodium <20 L (40-220) mmol/L 06/27/22 06/27/22 06/27/22 Range/Units 11:05 15:28 15:40 RBC (3.80-5.40) m/uL Hct (34.0-46.0) % MCV (80.0-100.0) fL MCH (25.0-35.0) pg Plt Count (150-450) k/uL Neutrophils # (Manual) (1.3-7.7) k/uL Lymphocytes # (Manual) (1.0-4.8) k/uL Sodium 106 L* 110 L* (137-145) mmol/L Chloride (98-107) mmol/L Carbon Dioxide (22-30) mmol/L BUN (7-17) mg/dL Glucose (74-99) mg/dL Osmolality (280-301) mosm/kg Calcium (8.4-10.2) mg/dL TSH (0.465-4.680) mIU/L Urine Appearance Cloudy H (Clear) Ur Specific [place] 1.037 H (1.001-1.035) Urine Protein Trace H (Negative) Urine Blood Large H (Negative) Ur Leukocyte Esterase Small H (Negative) Urine RBC 7 H (0-5) /hpf Urine WBC 14 H (0-5) /hpf Urine Bacteria Rare H (None) /hpf Urine Mucus Rare H (None) /hpf Ur Random Sodium (40-220) mmol/L 06/27/22 06/27/22 06/27/22 Range/Units 17:29 20:59 22:41 RBC (3.80-5.40) m/uL Hct (34.0-46.0) % MCV (80.0-100.0) fL MCH (25.0-35.0) pg Plt Count (150-450) k/uL Neutrophils # (Manual) (1.3-7.7) k/uL Lymphocytes # (Manual) (1.0-4.8) k/uL Sodium 110 L* 112 L* 111 L* (137-145) mmol/L Chloride (98-107) mmol/L Carbon Dioxide (22-30) mmol/L BUN (7-17) mg/dL Glucose (74-99) mg/dL Osmolality (280-301) mosm/kg Calcium (8.4-10.2) mg/dL TSH (0.465-4.680) mIU/L Urine Appearance (Clear) Ur Specific [place] (1.001-1.035) Urine Protein (Negative) Urine Blood (Negative) Ur Leukocyte Esterase (Negative) Urine RBC (0-5) /hpf Urine WBC (0-5) /hpf Urine Bacteria (None) /hpf Urine Mucus (None) /hpf Ur Random Sodium (40-220) mmol/L 06/28/22 06/28/22 06/28/22 Range/Units 02:15 04:45 04:45 RBC 2.93 L (3.80-5.40) m/uL Hct 31.8 L (34.0-46.0) % MCV 108.4 H (80.0-100.0) fL MCH 39.1 H (25.0-35.0) pg Plt Count 145 L (150-450) k/uL Neutrophils # (Manual) 8.20 H (1.3-7.7) k/uL Lymphocytes # (Manual) 0.38 L (1.0-4.8) k/uL Sodium 113 L* 114 L* (137-145) mmol/L Chloride 86 L (98-107) mmol/L Carbon Dioxide 18 L (22-30) mmol/L BUN 6 L (7-17) mg/dL Glucose 148 H (74-99) mg/dL Osmolality (280-301) mosm/kg Calcium 7.3 L (8.4-10.2) mg/dL TSH (0.465-4.680) mIU/L Urine Appearance (Clear) Ur Specific [place] (1.001-1.035) Urine Protein (Negative) Urine Blood (Negative) Ur Leukocyte Esterase (Negative) Urine RBC (0-5) /hpf Urine WBC (0-5) /hpf Urine Bacteria (None) /hpf Urine Mucus (None) /hpf Ur Random Sodium (40-220) mmol/L 06/28/22 Range/Units 06:42 RBC (3.80-5.40) m/uL Hct (34.0-46.0) % MCV (80.0-100.0) fL MCH (25.0-35.0) pg Plt Count (150-450) k/uL Neutrophils # (Manual) (1.3-7.7) k/uL Lymphocytes # (Manual) (1.0-4.8) k/uL Sodium 114 L* (137-145) mmol/L Chloride (98-107) mmol/L Carbon Dioxide (22-30) mmol/L BUN (7-17) mg/dL Glucose (74-99) mg/dL Osmolality (280-301) mosm/kg Calcium (8.4-10.2) mg/dL TSH (0.465-4.680) mIU/L Urine Appearance (Clear) Ur Specific [place] (1.001-1.035) Urine Protein (Negative) Urine Blood (Negative) Ur Leukocyte Esterase (Negative) Urine RBC (0-5) /hpf Urine WBC (0-5) /hpf Urine Bacteria (None) /hpf Urine Mucus (None) /hpf Ur Random Sodium (40-220) mmol/L Microbiology - Last 24 Hours (Table) 06/27/22 10:57 Urine Culture - Preliminary Urine,Voided Assessment and Plan (1) Alcoholic hepatitis with ascites Narrative/Plan: 71-year-old admitted with nausea vomiting, weakness and severe hyponatremia. Patient has a history of alcohol intoxication, abuse drinking at least 1 bottle of wine the last one year duration. Patient was noted to have elevated LFTs on admission, CT of the abdomen and pelvis reporting heterogeneity of the liver suggestive of cirrhosis or hepatitis. Patient likely has underlying cirrhosis of the liver related to alcohol abuse. New onset ascites. Patient's abdomen soft at this time, may require paracentesis in the next 1-2 days duration and will get fluid studies at that time if needed. Otherwise discussed with patient importance of alcohol abstinence and need for outpatient follow-up for her underlying liver disease. Nephrology following patient closely. Lasix 40 mg twice a day added. Paracentesis ordered. Current Visit: Yes Status: Acute Code(s): K70.11 - ALCOHOLIC HEPATITIS WITH ASCITES SNOMED Code(s): 4637256169501823 (2) Nausea and vomiting Narrative/Plan: Patient with complaints of nausea and vomiting related to eating. Unclear etiology at this time. May be related to underlying hyponatremia and hypomagnesemia. No plans on EGD at this time. Will continue with proton X 40 mg daily. And reporting oral and pharyngeal phases of the swallow that are within normal limits. Patient did experience some complaints of esophageal pain and a sensation of nausea after eating textured food. Will keep on clear liquid diet and advance to full liquid diet in the morning. Current Visit: Yes Status: Acute Code(s): R11.2 - NAUSEA WITH VOMITING, UNSPECIFIED SNOMED Code(s): 83745690 (3) Hyponatremia Current Visit: Yes Status: Acute Code(s): E87.1 - HYPO-OSMOLALITY AND HYPONATREMIA SNOMED Code(s): 96180477 Plan: 1. Continue symptomatic and supportive care 2. Avoid hepatotoxic medications 3. Daily CMP 4. Alcohol abstinence 5. Clear liquid diet, advance diet as tolerated 6. No plans on EGD at this time 7. Patient is cleared from gastroenterology to undergo paracentesis with fluid studies 8. Continue with recommendations on diuretics from nephrology Thank you for this consultation, we will continue to follow. Dr. Percy Tejada I agree with the dictator's note, documented as a scribe by Bonita Ellsworth.
[2022-06-28] MEDS: NOREPINEPHRINE 8 MG in SODIUM CHLORIDE 0.9% 250 ML IV SCH (16:57)
[2022-06-28] MEDS: FUROSEMIDE 100 MG in SODIUM CHLORIDE 0.9% 90 ML IV SCH (16:58)
[2022-06-28] MEDS ORDERED: MIDODRINE 5 MG TAB PO SCH (19:00)
[2022-06-28 21:41] LABS: Appearance,BF Clear
[2022-06-28 22:08] LABS: Albumin, Fluid Source Ascites; T. Protein, Body Fluid Source Ascites; Total Protein, Body Fluid 999 mg/dL
[2022-06-29] MEDS: HEPARIN SODIUM,PORCINE/PF 5,000 UNIT/0.5 ML SYRINGE SQ SCH ×3 (00:29→16:11)
[2022-06-29] MEDS: ALBUTEROL NEBULIZED 2.5 MG/3 ML INHALATION SCH ×4 (00:41→20:10)
[2022-06-29] MEDS: LORazepam 1 MG/0.5 ML VIAL IV PRN ×4 (02:20→18:44)
[2022-06-29] MEDS: HYDROCORTISONE SUCCINATE 100 MG/2 ML VIAL IV SCH ×2 (03:15→09:40)
[2022-06-29 03:43] LABS: Basophils % (A) 0 %; Eosinophils # (A) 0.1 k/uL (0-0.7); Eosinophils % (A) 1 %; HCT 30.1 % (34.0-46.0); HGB 10.5 gm/dL (11.4-16.0); Lymphocytes # (A) 0.4 k/uL (1.0-4.8); Lymphocytes % (A) 4 %; MCH 37.9 pg (25.0-35.0); MCHC 34.8 g/dL (31.0-37.0); MCV 108.9 fL (80.0-100.0); Macrocytosis Moderate; Mean Platelet Volume 8.3; Monocytes # (A) 0.5 k/uL (0-1.0); Monocytes % (A) 6 %; Neutrophils # (A) 7.7 k/uL (1.3-7.7); Neutrophils % (A) 87 %; Platelet Count 131 k/uL (150-450); RBC 2.76 m/uL (3.80-5.40); RDW 12.7 % (11.5-15.5); WBC 8.9 k/uL (3.8-10.6)
[2022-06-29 04:00] LABS: ALT 41 U/L (4-34); AST 139 U/L (14-36); African American GFR (CKD) 66 (>60 ml/min/1.73 sqM); Alkaline Phosphatase 99 U/L (38-126); Anion Gap 14 mmol/L; Blood Urea Nitrogen 8 mg/dL (7-17); Calcium 7.9 mg/dL (8.4-10.2); Carbon Dioxide 17 mmol/L (22-30); Chloride 87 mmol/L (98-107); Glucose 135 mg/dL (74-99); Magnesium 1.9 mg/dL (1.6-2.3); Non-African American GFR(CKD) 57 (>60 ml/min/1.73 sqM); Potassium 4.4 mmol/L (3.5-5.1); Total Bilirubin 4.8 mg/dL (0.2-1.3); Total Protein 6.1 g/dL (6.3-8.2)
[2022-06-29 04:03] LABS: Sodium 118 mmol/L (137-145)
[2022-06-29] MEDS: LACTULOSE 20 GM/30 ML CUP PO SCH ×4 (05:33→21:16)
[2022-06-29] MEDS: MAGNESIUM SULFATE-D5W PMX 1 GM in DEXTROSE/WATER 1 100ML.BAG IVPB SCH ×2 (05:39→07:13)
[2022-06-29] MEDS: MIDODRINE 5 MG TAB PO SCH ×3 (05:54→17:21)
[2022-06-29] MEDS: FUROSEMIDE 100 MG in SODIUM CHLORIDE 0.9% 90 ML IV SCH ×2 (06:47→19:55)
[2022-06-29] MEDS: SODIUM CHLORIDE 3%(HYPERTONIC) 500 ML IV SCH (07:17)
[2022-06-29] MEDS ORDERED: TOLVAPTAN 15 MG 1/2 TABLET PO ONE (09:00)
--- NOTE | 2022-06-29 09:25 | P.PN ---
Subjective Patient is seen in follow-up for hyponatremia. Sodium level 117 this morning. Maintained on Lasix drip. 3% was also resumed about an hour ago. Urine output 15-30 mL an hour. Underwent paracentesis yesterday with 3 L drained. Vital signs are stable. General: No acute distress. HEENT: Head exam is unremarkable. LUNGS: Breath sounds decreased. HEART: Regular rate and rhythm. ABDOMEN: Soft, mild distention. EXTREMITITES: 2+ edema. Objective - Vital Signs Vital signs: Vital Signs Temp 97.9 F 06/29/22 04:00 Pulse 94 06/29/22 08:25 Resp 16 06/29/22 07:00 BP 149/54 06/29/22 07:00 Pulse Ox 96 06/29/22 08:17 FiO2 Intake & Output 06/28/22 06/29/22 06/29/22 18:59 06:59 18:59 Intake Total 310 179.083 Output Total 409 367 Balance -99 -187.917 Weight 83.688 kg Intake: IV 130 110 Albumin Human 25% 50 ml 100 In Empty Bag 1 bag @ 50 mls/hr IVPB Q1H [facility] Rx#: [id number] Furosemide 100 mg In 5 60 Sodium Chloride 0.9% 90 ml @ 5 MG/HR 5 mls/hr IV .Q20H [facility] Rx#:[id number] Sodium Chloride 3%( 25 50 Hypertonic) 500 ml @ 25 mls/hr IV .Q20H [facility] Rx#: [id number] Intake, IV Titration 69.083 Amount Furosemide 100 mg In 69.083 Sodium Chloride 0.9% 90 ml @ 5 MG/HR 5 mls/hr IV .Q20H [facility] Rx#:[id number] Oral 180 Output: Urine 409 367 Other: Voiding Method Indwelling Catheter Indwelling Catheter - Labs CBC & Chem 7: 06/29/22 03:05 06/29/22 08:09 Labs: Abnormal Lab Results - Last 24 Hours (Table) 06/28/22 06/28/22 06/29/22 Range/Units 15:02 20:00 00:39 RBC (3.80-5.40) m/uL Hgb (11.4-16.0) gm/dL Hct (34.0-46.0) % MCV (80.0-100.0) fL MCH (25.0-35.0) pg Plt Count (150-450) k/uL Lymphocytes # (1.0-4.8) k/uL Sodium 114 L* 117 L* 118 L* (137-145) mmol/L Chloride (98-107) mmol/L Carbon Dioxide (22-30) mmol/L Glucose (74-99) mg/dL Calcium (8.4-10.2) mg/dL Total Bilirubin (0.2-1.3) mg/dL AST (14-36) U/L ALT (4-34) U/L Ammonia (<30) umol/L Total Protein (6.3-8.2) g/dL Albumin (3.5-5.0) g/dL 06/29/22 06/29/22 06/29/22 Range/Units 03:05 03:05 03:05 RBC 2.76 L (3.80-5.40) m/uL Hgb 10.5 L (11.4-16.0) gm/dL Hct 30.1 L (34.0-46.0) % MCV 108.9 H (80.0-100.0) fL MCH 37.9 H (25.0-35.0) pg Plt Count 131 L (150-450) k/uL Lymphocytes # 0.4 L (1.0-4.8) k/uL Sodium 118 L* (137-145) mmol/L Chloride 87 L (98-107) mmol/L Carbon Dioxide 17 L (22-30) mmol/L Glucose 135 H (74-99) mg/dL Calcium 7.9 L (8.4-10.2) mg/dL Total Bilirubin 4.8 H (0.2-1.3) mg/dL AST 139 H (14-36) U/L ALT 41 H (4-34) U/L Ammonia 45 H (<30) umol/L Total Protein 6.1 L (6.3-8.2) g/dL Albumin 3.0 L (3.5-5.0) g/dL 06/29/22 06/29/22 Range/Units 05:47 08:09 RBC (3.80-5.40) m/uL Hgb (11.4-16.0) gm/dL Hct (34.0-46.0) % MCV (80.0-100.0) fL MCH (25.0-35.0) pg Plt Count (150-450) k/uL Lymphocytes # (1.0-4.8) k/uL Sodium 117 L* 117 L* (137-145) mmol/L Chloride (98-107) mmol/L Carbon Dioxide (22-30) mmol/L Glucose (74-99) mg/dL Calcium (8.4-10.2) mg/dL Total Bilirubin (0.2-1.3) mg/dL AST (14-36) U/L ALT (4-34) U/L Ammonia (<30) umol/L Total Protein (6.3-8.2) g/dL Albumin (3.5-5.0) g/dL Microbiology - Last 24 Hours (Table) 06/27/22 10:57 Urine Culture - Preliminary Urine,Voided Gram Neg Bacilli Assessment and Plan Plan: Assessment: 1. Hyponatremia secondary to poor solute intake/excessive fluid intake. Sodium level 106 on admission and dropped with normal saline. Sodium level 117 this morning. Hypervolemic. Cortisol level not low. TSH is 6.7. 2. Alcohol abuse. Concern for alcoholic hepatitis. GI following. CT of the abdomen and pelvis suggestive of hepatitis versus cirrhosis. No hydronephrosis noted. 3. Benign hypertension. Blood pressure had been low but now improved. 4. Ascites noted on CAT scan. Status post paracentesis on 06/28/2022 to 3 L drained. 5. Hypomagnesemia from poor intake. Replaced. Better. 6. Volume overload. 7. Metabolic acidosis secondary to IV fluids and likely compensatory for underlying respiratory alkalosis due to liver disease. Plan: Stop 3%. Maintain Lasix drip. Will increase dose later today if blood pressure able to tolerate. [place] 7.5 mg once today. Goal rate of hyponatremia correction 6-7 mEq per 24 hours. Repeat sodium level this afternoon. Decrease hydrocortisone to once a day. Can stop tomorrow. Maintain midodrine and hold for systolic blood pressure greater than 115. Add oral bicarbonate.
[2022-06-29] MEDS: THIAMINE 100 MG TAB PO SCH (09:39)
[2022-06-29] MEDS: FOLIC ACID 1 MG TAB PO SCH (09:39)
[2022-06-29] MEDS: MULTIVITAMINS, THERA 1 EACH TAB PO SCH (09:39)
[2022-06-29] MEDS: PANTOPRAZOLE 40 MG/10 ML VIAL IVP SCH (09:40)
[2022-06-29] MEDS: SODIUM BICARBONATE TAB 650 MG TAB PO SCH ×2 (09:54→21:16)
[2022-06-29 10:48] LABS: Vitamin B12 >2000.0 pg/mL (200.0-944.0)
--- NOTE | 2022-06-29 12:46 | P.PN ---
Subjective Progress Note Date: 06/29/22 Principal diagnosis: Severe hyponatremia this is a 71-year-old female, heavy drinker, patient drinks on a daily basis, brought into the hospital with one month history of nausea and vomiting, constipation, and her abdomen has been gradually getting more and more distended.patient is not a great historian but she has been complaining of fatigue, and not feeling well. Her son insisted that she comes into the ER.upon her initial evaluation in the ER, patient was noted to be hyponatremic with a sodium of 105. She was also noted to have heterogeneous liver possible cirrhosis and possible hepatitis. Patient drinks on the average of one bottle of wine a day.CT abdomen and pelvis also showed moderate abdominal ascites which is a new compared to previous exam done in 2019.at any rate considering her profound hyponatremia I was asked to see the patient on consultation. And she was admitted to the ICU. Started initially on 3% saline as per nephrology to get her sodium slowly up to the range of 120/125 Reevaluated today on 06/28/22, patient remains in the ICU, she is feeling better, she is on room air, does not seem to be in any distress, patient is supposed to undergo paracentesis today. Her sodium is correcting nicely and slowly. Patient is now not receiving any IV fluids. And again her sodium seems to be coming up nicely today's sodium is 114, patient was admitted with a sodium of 104 on admission patient denies any shortness of breath no cough no wheezing no nausea no vomiting no abdominal pain no melena no hematemesis remains on the CIWA protocol, and seems to be doing well Reevaluated today on 06/29/22, patient remains in the ICU, her hyponatremia is responding well to treatment slowly patient's sodium today is 117, she has a urine output of 20-30 mL/h, she had 3 L of fluid drained from her peritoneal cavity yesterday by interventional radiology results of which are pending. Patient was noted to have evidence of UTI, and she is now on Rocephin empirically. Her ammonia level was noted to be 45 today, and she was placed on lactulose. Patient remains on the CIWA protocol. Intermittently noted to be confused, but overall she is doing well. And she seems to be quite slow and lethargic not to mention the patient is receiving Ativan for potential withdrawal basic metabolic profile was noted today sodium is 117 her renal profile is normal anion gap is 14 BUN is 8 and creatinine is 0.98 Objective - Vital Signs Vital signs: Vital Signs Temp 9.1 F L 06/29/22 08:00 Pulse 100 06/29/22 12:16 Resp 15 06/29/22 11:00 BP 102/52 06/29/22 11:00 Pulse Ox 96 06/29/22 11:00 FiO2 Intake & Output 06/28/22 06/29/22 06/29/22 18:59 06:59 18:59 Intake Total 310 179.083 40 Output Total 409 367 100 Balance -99 -187.917 -60 Weight 83.688 kg Intake: IV 130 110 40 Albumin Human 25% 50 ml 100 In Empty Bag 1 bag @ 50 mls/hr IVPB Q1H [facility] Rx#: [id number] Furosemide 100 mg In 5 60 15 Sodium Chloride 0.9% 90 ml @ 5 MG/HR 5 mls/hr IV .Q20H [facility] Rx#:[id number] Sodium Chloride 3%( 25 50 25 Hypertonic) 500 ml @ 25 mls/hr IV .Q20H [facility] Rx#: [id number] Intake, IV Titration 69.083 Amount Furosemide 100 mg In 69.083 Sodium Chloride 0.9% 90 ml @ 5 MG/HR 5 mls/hr IV .Q20H [facility] Rx#:[id number] Oral 180 Output: Urine 409 367 100 Other: Voiding Method Indwelling Catheter Indwelling Catheter Indwelling Catheter - Exam General appearance: revealed 71-year-old female in no distress.on room air. Patient is a bit lethargic but arousable and follows instructions HET: Head is normocephalic and atraumatic. Conjunctiva pink. Sclera anicteric. Neck: Supple without lymphadenopathy. Trachea midline. Heart:normal S1 and S2, no S3 gallop. Lungs: symmetrical chest expansion, clear throughout no crackles or rhonchi or wheezes Abdomen: obese, soft, slightly distended, no rebound no guarding. Abdomen seems to be less distended today compared to admission Skin: No rashes. Extremities: no clubbing edema or cyanosis. Neurological: Lethargic, arousable, follows instructions bit slow otherwise unremarkable Psychiatric: Depressed mood, flat affect, sleepy and difficult to assess mental status but seems to be appropriate overall - Labs CBC & Chem 7: 06/29/22 03:05 06/29/22 08:09 Labs: Abnormal Lab Results - Last 24 Hours (Table) 06/28/22 06/28/22 06/29/22 Range/Units 15:02 20:00 00:39 RBC (3.80-5.40) m/uL Hgb (11.4-16.0) gm/dL Hct (34.0-46.0) % MCV (80.0-100.0) fL MCH (25.0-35.0) pg Plt Count (150-450) k/uL Lymphocytes # (1.0-4.8) k/uL Sodium 114 L* 117 L* 118 L* (137-145) mmol/L Chloride (98-107) mmol/L Carbon Dioxide (22-30) mmol/L Glucose (74-99) mg/dL Calcium (8.4-10.2) mg/dL Total Bilirubin (0.2-1.3) mg/dL AST (14-36) U/L ALT (4-34) U/L Ammonia (<30) umol/L Total Protein (6.3-8.2) g/dL Albumin (3.5-5.0) g/dL Vitamin B12 (200.0-944.0) pg/mL 06/29/22 06/29/22 06/29/22 Range/Units 03:05 03:05 03:05 RBC 2.76 L (3.80-5.40) m/uL Hgb 10.5 L (11.4-16.0) gm/dL Hct 30.1 L (34.0-46.0) % MCV 108.9 H (80.0-100.0) fL MCH 37.9 H (25.0-35.0) pg Plt Count 131 L (150-450) k/uL Lymphocytes # 0.4 L (1.0-4.8) k/uL Sodium 118 L* (137-145) mmol/L Chloride 87 L (98-107) mmol/L Carbon Dioxide 17 L (22-30) mmol/L Glucose 135 H (74-99) mg/dL Calcium 7.9 L (8.4-10.2) mg/dL Total Bilirubin 4.8 H (0.2-1.3) mg/dL AST 139 H (14-36) U/L ALT 41 H (4-34) U/L Ammonia 45 H (<30) umol/L Total Protein 6.1 L (6.3-8.2) g/dL Albumin 3.0 L (3.5-5.0) g/dL Vitamin B12 >2000.0 H (200.0-944.0) pg/mL 06/29/22 06/29/22 Range/Units 05:47 08:09 RBC (3.80-5.40) m/uL Hgb (11.4-16.0) gm/dL Hct (34.0-46.0) % MCV (80.0-100.0) fL MCH (25.0-35.0) pg Plt Count (150-450) k/uL Lymphocytes # (1.0-4.8) k/uL Sodium 117 L* 117 L* (137-145) mmol/L Chloride (98-107) mmol/L Carbon Dioxide (22-30) mmol/L Glucose (74-99) mg/dL Calcium (8.4-10.2) mg/dL Total Bilirubin (0.2-1.3) mg/dL AST (14-36) U/L ALT (4-34) U/L Ammonia (<30) umol/L Total Protein (6.3-8.2) g/dL Albumin (3.5-5.0) g/dL Vitamin B12 (200.0-944.0) pg/mL Microbiology - Last 24 Hours (Table) 06/27/22 10:57 Urine Culture - Preliminary Urine,Voided Gram Neg Bacilli Assessment and Plan Assessment: impression: Severe hyponatremia secondary to excessive alcohol use, poor salt intake, and excessive fluid intake alcoholism Suspect liver cirrhosis and ascites Benign essential hypertension Hypomagnesemia Alcoholic hepatitis Acute urinary tract infection, gram-negative bacilli noted in the urine culture Recommendation: Start patient on Rocephin Continue to monitor in ICU for the next 24 hours 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 Prognosis is guarded. Time with Patient: Less than 30
--- NOTE | 2022-06-29 12:54 | P.PN ---
Subjective Progress Note Date: 06/29/22 Principal diagnosis: Alcoholic hepatitis This a pleasant 71-year-old female who presented to the emergency department yesterday with complaints of nausea and vomiting 1 month duration. She has been having progressively distended abdomen, increased weakness, decreased urine output and bowel movements. On admission patient was found to be hyponatremic with a sodium of 105. She was admitted to the ICU for further evaluation. She was also noted to have heterogeneity of the liver possible cirrhosis versus hepatitis. Gastroenterology was consulted for alcoholic hepatitis. Patient admits to drinking one bottle of wine a day, she states she's been drinking daily for 1 year duration due to pain. Prior to that she states that she drinks 1-2 bottles of wine a week. She is also complaining of abdominal discomfort, nausea and vomiting especially after eating. States she's not been eating well at home, mostly drinking water and not pop. Denies any previous EGD, states that she was told in the past that she had an ulcer but she has not had an EGD performed. 06/28/2022: Patient seen and examined is a follow-up in the ICU. She is very shaky and has tremors today. Other than that patient states she feels okay. Nephrology is following and has ordered a paracentesis. Sodium improving. Patient was started on Lasix 40 mg every 12 hours. No acute changes or name. 06/29/2022: Patient followed up in the ICU. Yesterday she underwent paracentesis with 3 L of fluid removed. The patient a little confused and weak today. Total bilirubin 4.8 AST 139 AST 41 alkaline phosphatase 99, ammonia 45. Objective - Vital Signs Vital signs: Vital Signs Temp 9.1 F L 06/29/22 08:00 Pulse 94 06/29/22 10:00 Resp 17 06/29/22 10:00 BP 102/69 06/29/22 10:00 Pulse Ox 95 06/29/22 10:00 FiO2 Intake & Output 06/28/22 06/29/22 06/29/22 18:59 06:59 18:59 Intake Total 310 179.083 40 Output Total 409 367 100 Balance -99 -187.917 -60 Weight 83.688 kg Intake: IV 130 110 40 Albumin Human 25% 50 ml 100 In Empty Bag 1 bag @ 50 mls/hr IVPB Q1H [facility] Rx#: [id number] Furosemide 100 mg In 5 60 15 Sodium Chloride 0.9% 90 ml @ 5 MG/HR 5 mls/hr IV .Q20H [facility] Rx#:[id number] Sodium Chloride 3%( 25 50 25 Hypertonic) 500 ml @ 25 mls/hr IV .Q20H [facility] Rx#: [id number] Intake, IV Titration 69.083 Amount Furosemide 100 mg In 69.083 Sodium Chloride 0.9% 90 ml @ 5 MG/HR 5 mls/hr IV .Q20H [facility] Rx#:[id number] Oral 180 Output: Urine 409 367 100 Other: Voiding Method Indwelling Catheter Indwelling Catheter Indwelling Catheter - Exam General appearance: The patient is fatigued, appears in no acute distress. HET: Head is normocephalic and atraumatic. Conjunctiva pink. Sclera anicteric. Neck: Supple without lymphadenopathy. Abdomen: Soft, nontender, nondistended. No guarding or rigidity. Extremities: Normal skin color and turgor. Bilateral lower extremity edema. Skin: No rashes, jaundice. Neurological: No focal deficits. Alert and oriented x3. - Labs CBC & Chem 7: 06/29/22 03:05 06/29/22 08:09 Labs: Abnormal Lab Results - Last 24 Hours (Table) 06/28/22 06/28/22 06/29/22 Range/Units 15:02 20:00 00:39 RBC (3.80-5.40) m/uL Hgb (11.4-16.0) gm/dL Hct (34.0-46.0) % MCV (80.0-100.0) fL MCH (25.0-35.0) pg Plt Count (150-450) k/uL Lymphocytes # (1.0-4.8) k/uL Sodium 114 L* 117 L* 118 L* (137-145) mmol/L Chloride (98-107) mmol/L Carbon Dioxide (22-30) mmol/L Glucose (74-99) mg/dL Calcium (8.4-10.2) mg/dL Total Bilirubin (0.2-1.3) mg/dL AST (14-36) U/L ALT (4-34) U/L Ammonia (<30) umol/L Total Protein (6.3-8.2) g/dL Albumin (3.5-5.0) g/dL Vitamin B12 (200.0-944.0) pg/mL 06/29/22 06/29/22 06/29/22 Range/Units 03:05 03:05 03:05 RBC 2.76 L (3.80-5.40) m/uL Hgb 10.5 L (11.4-16.0) gm/dL Hct 30.1 L (34.0-46.0) % MCV 108.9 H (80.0-100.0) fL MCH 37.9 H (25.0-35.0) pg Plt Count 131 L (150-450) k/uL Lymphocytes # 0.4 L (1.0-4.8) k/uL Sodium 118 L* (137-145) mmol/L Chloride 87 L (98-107) mmol/L Carbon Dioxide 17 L (22-30) mmol/L Glucose 135 H (74-99) mg/dL Calcium 7.9 L (8.4-10.2) mg/dL Total Bilirubin 4.8 H (0.2-1.3) mg/dL AST 139 H (14-36) U/L ALT 41 H (4-34) U/L Ammonia 45 H (<30) umol/L Total Protein 6.1 L (6.3-8.2) g/dL Albumin 3.0 L (3.5-5.0) g/dL Vitamin B12 >2000.0 H (200.0-944.0) pg/mL 06/29/22 06/29/22 Range/Units 05:47 08:09 RBC (3.80-5.40) m/uL Hgb (11.4-16.0) gm/dL Hct (34.0-46.0) % MCV (80.0-100.0) fL MCH (25.0-35.0) pg Plt Count (150-450) k/uL Lymphocytes # (1.0-4.8) k/uL Sodium 117 L* 117 L* (137-145) mmol/L Chloride (98-107) mmol/L Carbon Dioxide (22-30) mmol/L Glucose (74-99) mg/dL Calcium (8.4-10.2) mg/dL Total Bilirubin (0.2-1.3) mg/dL AST (14-36) U/L ALT (4-34) U/L Ammonia (<30) umol/L Total Protein (6.3-8.2) g/dL Albumin (3.5-5.0) g/dL Vitamin B12 (200.0-944.0) pg/mL Microbiology - Last 24 Hours (Table) 06/27/22 10:57 Urine Culture - Preliminary Urine,Voided Gram Neg Bacilli Assessment and Plan (1) Alcoholic hepatitis with ascites Narrative/Plan: 71-year-old admitted with nausea vomiting, weakness and severe hyponatremia. Patient has a history of alcohol intoxication, abuse drinking at least 1 bottle of wine the last one year duration. Patient was noted to have elevated LFTs on admission, CT of the abdomen and pelvis reporting heterogeneity of the liver suggestive of cirrhosis or hepatitis. Patient likely has underlying cirrhosis of the liver related to alcohol abuse. New onset ascites. Patient's abdomen soft at this time, may require paracentesis in the next 1-2 days duration and will get fluid studies at that time if needed. Otherwise discussed with patient importance of alcohol abstinence and need for outpatient follow-up for her underlying liver disease. Nephrology following patient closely. Lasix 40 mg twice a day added. Paracentesis completed with 3 L removed. Fluid studies consistent with underlying liver disease patient with decompensated cirrhosis of the liver.. Current Visit: Yes Status: Acute Code(s): K70.11 - ALCOHOLIC HEPATITIS WITH ASCITES SNOMED Code(s): 2979093972262299 (2) Nausea and vomiting Narrative/Plan: Patient with complaints of nausea and vomiting related to eating. Unclear etiology at this time. May be related to underlying hyponatremia and hypomagne semia. No plans on EGD at this time. Will continue with proton X 40 mg daily. And reporting oral and pharyngeal phases of the swallow that are within normal limits. Patient did experience some complaints of esophageal pain and a sensation of nausea after eating textured food. Will keep on clear liquid diet and advance to full liquid diet in the morning. Current Visit: Yes Status: Acute Code(s): R11.2 - NAUSEA WITH VOMITING, UNSPECIFIED SNOMED Code(s): 15782071 (3) Hyponatremia Current Visit: Yes Status: Acute Code(s): E87.1 - HYPO-OSMOLALITY AND HYPONATREMIA SNOMED Code(s): 16550203 (4) Hyperammonemia Narrative/Plan: Labs 30 g 3 times a day, titrate to have 3-4 bowel movements daily. Current Visit: Yes Status: Acute Code(s): E72.20 - DISORDER OF UREA CYCLE METABOLISM, UNSPECIFIED SNOMED Code(s): 5975833 Plan: 1. Continue symptomatic and supportive care 2. Avoid hepatotoxic medications 3. Daily CMP, ammonia, repeat INR tomorrow 4. Alcohol abstinence 5. Low-sodium diet 6. No plans on EGD at this time 7. Lactulose 30 g 3 times a day, titrate to have 3-4 bowel movements daily 8. Continue with recommendations on diuretics from nephrology Thank you for allowing us to participate in the care of the patient, the GI service will sign off, gastroenterology will not be available at the hospital this weekend and through next week. If further evaluation by gastroenterology is required the patient will need transfer as per the primary team's discretion. Dr. Percy Tejada I agree with the dictator's note, documented as a scribe by Bonita Ellsworth.
[2022-06-29] MEDS: NOREPINEPHRINE 8 MG in SODIUM CHLORIDE 0.9% 250 ML IV SCH (19:56)
[2022-06-29] MEDS: RIFAXIMIN 550 MG TABLET PO SCH (21:16)
[2022-06-30] MEDS: HEPARIN SODIUM,PORCINE/PF 5,000 UNIT/0.5 ML SYRINGE SQ SCH ×4 (00:05→23:42)
[2022-06-30] MEDS: SODIUM CHLORIDE 3%(HYPERTONIC) 500 ML IV SCH (00:05)
[2022-06-30 05:05] LABS: INR 2.2 (<1.2); Prothrombin Time 21.6 sec (9.0-12.0)
[2022-06-30] MEDS: FUROSEMIDE 100 MG in SODIUM CHLORIDE 0.9% 90 ML IV SCH ×2 (05:06→11:30)
[2022-06-30 05:15] LABS: Albumin 2.8 g/dL (3.5-5.0); Calcium 7.6 mg/dL (8.4-10.2); Magnesium 1.9 mg/dL (1.6-2.3); Potassium 4.2 mmol/L (3.5-5.1); Total Bilirubin 3.8 mg/dL (0.2-1.3); Total Protein 5.8 g/dL (6.3-8.2)
[2022-06-30] MEDS: LORazepam 1 MG/0.5 ML VIAL IV PRN ×2 (05:16→23:41)
[2022-06-30] MEDS: MIDODRINE 5 MG TAB PO SCH ×3 (08:08→15:46)
[2022-06-30] MEDS: HYDROCORTISONE SUCCINATE 100 MG/2 ML VIAL IV SCH (08:09)
[2022-06-30] MEDS: PANTOPRAZOLE 40 MG/10 ML VIAL IVP SCH (08:09)
[2022-06-30] MEDS: LACTULOSE 20 GM/30 ML CUP PO SCH ×3 (08:09→20:36)
[2022-06-30] MEDS: SODIUM BICARBONATE TAB 650 MG TAB PO SCH ×2 (08:09→20:36)
[2022-06-30] MEDS: THIAMINE 100 MG TAB PO SCH (08:10)
[2022-06-30] MEDS: MULTIVITAMINS, THERA 1 EACH TAB PO SCH (08:10)
[2022-06-30] MEDS: FOLIC ACID 1 MG TAB PO SCH (08:10)
[2022-06-30] MEDS: RIFAXIMIN 550 MG TABLET PO SCH ×2 (08:10→20:36)
[2022-06-30] MEDS: ALBUTEROL NEBULIZED 2.5 MG/3 ML INHALATION SCH ×3 (08:29→20:56)
--- NOTE | 2022-06-30 10:54 | P.PN ---
Subjective Patient is seen for follow-up for severe hyponatremia and volume overload. Patient is maintained on Lasix drip. She has had good urine output with urine output and 100-150 mL an hour. Serum sodium has improved to 124. She is status post 3% saline upon initial admission. Patient is sleeping she did get Ativan early this morning. Oral intake has been poor. Sodium 124 this morning. Objective - Vital Signs Vital signs: Vital Signs Temp 98.2 F 06/30/22 08:00 Pulse 87 06/30/22 08:00 Resp 15 06/30/22 08:00 BP 87/54 06/30/22 08:00 Pulse Ox 97 06/30/22 08:00 FiO2 Intake & Output 06/29/22 06/30/22 06/30/22 18:59 06:59 18:59 Intake Total 81 361.166 40 Output Total 785 1385 200 Balance -704 -1023.834 -160 Weight 81.5 kg Intake: IV 40 220 40 0.9 100 20 Furosemide 100 mg In 15 120 20 Sodium Chloride 0.9% 90 ml @ 5 MG/HR 5 mls/hr IV .Q20H [facility] Rx#:[id number] Sodium Chloride 3%( 25 Hypertonic) 500 ml @ 25 mls/hr IV .Q20H [facility] Rx#: [id number] Intake, IV Titration 41 141.166 Amount Furosemide 100 mg In 41 141.166 Sodium Chloride 0.9% 90 ml @ 5 MG/HR 5 mls/hr IV .Q20H [facility] Rx#:[id number] Output: Urine 785 1385 200 Other: Voiding Method Indwelling Catheter Indwelling Catheter Indwelling Catheter # Bowel Movements 1 - Exam Patient is sleeping. She is arousable but goes back to sleep Examination of the heart S1 and S2 Examination lungs decreased breath sounds at the bases Abdomen is soft nontender Examination of lower extremities shows edema 2+ bilaterally CRIMINAL ANALYST exam cannot be performed in detail with patient has been moving all 4 extremities per nursing staff. - Labs CBC & Chem 7: 06/29/22 03:05 06/30/22 04:37 Labs: Abnormal Lab Results - Last 24 Hours (Table) 06/29/22 06/29/22 06/30/22 Range/Units 13:06 19:10 00:45 PT (9.0-12.0) sec INR (<1.2) Sodium 119 L* 120 L 121 L (137-145) mmol/L Chloride (98-107) mmol/L Glucose (74-99) mg/dL Calcium (8.4-10.2) mg/dL Total Bilirubin (0.2-1.3) mg/dL AST (14-36) U/L ALT (4-34) U/L Total Protein (6.3-8.2) g/dL Albumin (3.5-5.0) g/dL 06/30/22 06/30/22 Range/Units 04:37 04:37 PT 21.6 H (9.0-12.0) sec INR 2.2 H (<1.2) Sodium 124 L (137-145) mmol/L Chloride 93 L (98-107) mmol/L Glucose 113 H (74-99) mg/dL Calcium 7.6 L (8.4-10.2) mg/dL Total Bilirubin 3.8 H (0.2-1.3) mg/dL AST 145 H (14-36) U/L ALT 46 H (4-34) U/L Total Protein 5.8 L (6.3-8.2) g/dL Albumin 2.8 L (3.5-5.0) g/dL Microbiology - Last 24 Hours (Table) 06/27/22 10:57 Urine Culture - Final Urine,Voided Escherichia coli Assessment and Plan Assessment: 1. Hyponatremia associated with poor solute intake. Serum sodium was 106 on initial admission and had dropped with normal saline. Status post 3% saline and currently maintained on Lasix drip for volume overload. Serum sodium is slowly improving. Patient remains hypervolemic 2. History of EtOH abuse with concern for alcoholic hepatitis. 3. Benign hypertension with low blood pressures initially currently improved 4. Ascites status post paracentesis with 3 L of fluid removed 5. Volume overload 6. Metabolic acidosis from IV fluids and likely compensatory mechanism for respiratory alkalosis from liver disease Plan: DC Lasix drip Lasix 60 mg IV every 8 hours Repeat sodium Continue with midodrine
[2022-06-30] MEDS: FUROSEMIDE 10 MG/ML 10 ML VIAL IV SCH ×3 (11:29→23:41)
--- NOTE | 2022-06-30 11:29 | P.PN ---
Subjective Progress Note Date: 06/30/22 Principal diagnosis: Severe hyponatremia this is a 71-year-old female, heavy drinker, patient drinks on a daily basis, brought into the hospital with one month history of nausea and vomiting, constipation, and her abdomen has been gradually getting more and more distended.patient is not a great historian but she has been complaining of fatigue, and not feeling well. Her son insisted that she comes into the ER.upon her initial evaluation in the ER, patient was noted to be hyponatremic with a sodium of 105. She was also noted to have heterogeneous liver possible cirrhosis and possible hepatitis. Patient drinks on the average of one bottle of wine a day.CT abdomen and pelvis also showed moderate abdominal ascites which is a new compared to previous exam done in 2019.at any rate considering her profound hyponatremia I was asked to see the patient on consultation. And she was admitted to the ICU. Started initially on 3% saline as per nephrology to get her sodium slowly up to the range of 120/125 Reevaluated today on 06/28/22, patient remains in the ICU, she is feeling better, she is on room air, does not seem to be in any distress, patient is supposed to undergo paracentesis today. Her sodium is correcting nicely and slowly. Patient is now not receiving any IV fluids. And again her sodium seems to be coming up nicely today's sodium is 114, patient was admitted with a sodium of 104 on admission patient denies any shortness of breath no cough no wheezing no nausea no vomiting no abdominal pain no melena no hematemesis remains on the CIWA protocol, and seems to be doing well Reevaluated today on 06/29/22, patient remains in the ICU, her hyponatremia is responding well to treatment slowly patient's sodium today is 117, she has a urine output of 20-30 mL/h, she had 3 L of fluid drained from her peritoneal cavity yesterday by interventional radiology results of which are pending. Patient was noted to have evidence of UTI, and she is now on Rocephin empirically. Her ammonia level was noted to be 45 today, and she was placed on lactulose. Patient remains on the CIWA protocol. Intermittently noted to be confused, but overall she is doing well. And she seems to be quite slow and lethargic not to mention the patient is receiving Ativan for potential withdrawal basic metabolic profile was noted today sodium is 117 her renal profile is normal anion gap is 14 BUN is 8 and creatinine is 0.98 Patient is still in ICU, seen today on 06/30/22, she seems to be intermittently confused, she is on the CIWA protocol for alcohol withdrawal, remains on Lasix and drip at 10 mg per hour. She is an negative balance of 1.7 L in the last 24 hours. Sodium today is up to 124. Patient is hemodynamically stable, and intermittent confusion is an issue, and she will remain in the ICU mostly because of her confusion. Remains on antibiotics/Rocephin for UTI. Objective - Vital Signs Vital signs: Vital Signs Temp 98.2 F 06/30/22 08:00 Pulse 93 06/30/22 11:00 Resp 23 06/30/22 11:00 BP 110/57 06/30/22 11:00 Pulse Ox 96 06/30/22 11:00 FiO2 Intake & Output 06/29/22 06/30/22 06/30/22 18:59 06:59 18:59 Intake Total 81 361.166 90 Output Total 785 1385 450 Balance -704 -1023.834 -360 Weight 81.5 kg Intake: IV 40 220 90 0.9 100 50 Furosemide 100 mg In 15 120 40 Sodium Chloride 0.9% 90 ml @ 5 MG/HR 5 mls/hr IV .Q20H [facility] Rx#:[id number] Sodium Chloride 3%( 25 Hypertonic) 500 ml @ 25 mls/hr IV .Q20H [facility] Rx#: [id number] Intake, IV Titration 41 141.166 Amount Furosemide 100 mg In 41 141.166 Sodium Chloride 0.9% 90 ml @ 5 MG/HR 5 mls/hr IV .Q20H [facility] Rx#:[id number] Output: Urine 785 1385 450 Other: Voiding Method Indwelling Catheter Indwelling Catheter Indwelling Catheter # Bowel Movements 1 - Exam General appearance: revealed 71-year-old female in no distress.on room air. HET: Head is normocephalic and atraumatic. Conjunctiva pink. Sclera anicteric. Neck: Supple without lymphadenopathy. Trachea midline. Heart:normal S1 and S2, no S3 gallop. Lungs: symmetrical chest expansion, clear throughout no crackles or rhonchi or wheezes Abdomen: obese, soft, slightly distended, no rebound no guarding. Abdomen seems to be less distended Skin: No rashes. Extremities: no clubbing edema or cyanosis. Neurological: Lethargic, arousable, follows simple instructions but confused Psychiatric: Depressed mood, flat affect, intermittently confused - Labs CBC & Chem 7: 06/29/22 03:05 06/30/22 04:37 Labs: Abnormal Lab Results - Last 24 Hours (Table) 06/29/22 06/29/22 06/30/22 Range/Units 13:06 19:10 00:45 PT (9.0-12.0) sec INR (<1.2) Sodium 119 L* 120 L 121 L (137-145) mmol/L Chloride (98-107) mmol/L Glucose (74-99) mg/dL Calcium (8.4-10.2) mg/dL Total Bilirubin (0.2-1.3) mg/dL AST (14-36) U/L ALT (4-34) U/L Total Protein (6.3-8.2) g/dL Albumin (3.5-5.0) g/dL 06/30/22 06/30/22 Range/Units 04:37 04:37 PT 21.6 H (9.0-12.0) sec INR 2.2 H (<1.2) Sodium 124 L (137-145) mmol/L Chloride 93 L (98-107) mmol/L Glucose 113 H (74-99) mg/dL Calcium 7.6 L (8.4-10.2) mg/dL Total Bilirubin 3.8 H (0.2-1.3) mg/dL AST 145 H (14-36) U/L ALT 46 H (4-34) U/L Total Protein 5.8 L (6.3-8.2) g/dL Albumin 2.8 L (3.5-5.0) g/dL Microbiology - Last 24 Hours (Table) 06/27/22 10:57 Urine Culture - Final Urine,Voided Escherichia coli Assessment and Plan Assessment: impression: Severe hyponatremia secondary to excessive alcohol use, poor salt intake, and excessive fluid intake alcoholism Suspect liver cirrhosis and ascites Benign essential hypertension Hypomagnesemia Alcoholic hepatitis Acute urinary tract infection, gram-negative bacilli noted in the urine culture Recommendation: Continue Rocephin for UTI Continue to monitor in ICU mostly because of her potential I'll call withdrawal Continue evaluation advisor withdrawal protocol/CIWA protocol Continue Lasix drip for now. And continue to monitor sodium closely Cultures from the paracentesis fluid are pending Will continue to follow. Prognosis is guarded. Time with Patient: Less than 30
[2022-06-30] MEDS: NOREPINEPHRINE 8 MG in SODIUM CHLORIDE 0.9% 250 ML IV SCH (15:48)
[2022-07-01 05:34] LABS: HCT 33.7 % (34.0-46.0); HGB 11.5 gm/dL (11.4-16.0); MCH 37.7 pg (25.0-35.0); MCV 111.1 fL (80.0-100.0); Macrocytosis Marked; Mean Platelet Volume 7.9; Platelet Count 104 k/uL (150-450); RBC 3.04 m/uL (3.80-5.40); WBC 8.1 k/uL (3.8-10.6)
[2022-07-01 05:48] LABS: Calcium 8.1 mg/dL (8.4-10.2); Potassium 3.2 mmol/L (3.5-5.1)
[2022-07-01] MEDS ORDERED: Potassium Replacement Protocol 1 EACH MISC MISCELLANE PRN (05:53)
[2022-07-01] MEDS: POTASSIUM BICARBONATE/CIT AC 20 MEQ TABLET.EFF NG-TUBE SCH ×2 (05:57→06:56)
[2022-07-01] MEDS: MIDODRINE 5 MG TAB PO SCH ×3 (06:56→15:59)
[2022-07-01] MEDS: ALBUTEROL NEBULIZED 2.5 MG/3 ML INHALATION SCH ×3 (07:58→21:40)
[2022-07-01] MEDS: HYDROCORTISONE SUCCINATE 100 MG/2 ML VIAL IV SCH (08:58)
[2022-07-01] MEDS: FUROSEMIDE 10 MG/ML 10 ML VIAL IV SCH (08:58)
[2022-07-01] MEDS: PANTOPRAZOLE 40 MG/10 ML VIAL IVP SCH (08:58)
[2022-07-01] MEDS: RIFAXIMIN 550 MG TABLET PO SCH ×2 (08:59→21:05)
[2022-07-01] MEDS: HEPARIN SODIUM,PORCINE/PF 5,000 UNIT/0.5 ML SYRINGE SQ SCH ×3 (08:59→23:07)
[2022-07-01] MEDS: SODIUM BICARBONATE TAB 650 MG TAB PO SCH ×2 (08:59→20:29)
[2022-07-01] MEDS: FOLIC ACID 1 MG TAB PO SCH (08:59)
[2022-07-01] MEDS: THIAMINE 100 MG TAB PO SCH (08:59)
[2022-07-01] MEDS: MULTIVITAMINS, THERA 1 EACH TAB PO SCH (08:59)
--- NOTE | 2022-07-01 09:47 | P.PN ---
Subjective Patient is seen for follow-up for severe hyponatremia and volume overload. Patient was maintained on Lasix drip and this was discontinued yesterday. Urine output has decreased to about 30-40 mL an hour. Since patient has been on IV push Lasix. She remains quite edematous No complaints of shortness of breath. Sodium is up to 128 today. Objective - Vital Signs Vital signs: Vital Signs Temp 98.2 F 07/01/22 08:00 Pulse 102 H 07/01/22 09:00 Resp 19 07/01/22 09:00 BP 115/74 07/01/22 09:00 Pulse Ox 95 07/01/22 09:00 FiO2 Intake & Output 06/30/22 07/01/22 07/01/22 18:59 06:59 18:59 Intake Total 179 Output Total 1375 450 60 Balance -1196 -450 -60 Weight 80 kg Intake: IV 130 0.9 90 Furosemide 100 mg In 40 Sodium Chloride 0.9% 90 ml @ 5 MG/HR 5 mls/hr IV .Q20H [facility] Rx#:[id number] Intake, IV Titration 49 Amount Furosemide 100 mg In 49 Sodium Chloride 0.9% 90 ml @ 5 MG/HR 5 mls/hr IV .Q20H [facility] Rx#:[id number] Output: Urine 1375 450 60 Other: Voiding Method Indwelling Catheter Indwelling Catheter Indwelling Catheter - Exam Patient is awake. Mentation slightly improved from yesterday. Examination of the heart S1 and S2 Examination lungs decreased breath sounds at the bases Abdomen is soft nontender Examination of lower extremities shows edema 2+ bilaterally NURSE MONITORING exam grossly intact - Labs CBC & Chem 7: 07/01/22 05:05 07/01/22 05:05 Labs: Abnormal Lab Results - Last 24 Hours (Table) 06/30/22 07/01/22 07/01/22 Range/Units 10:56 05:05 05:05 RBC 3.04 L (3.80-5.40) m/uL Hct 33.7 L (34.0-46.0) % MCV 111.1 H (80.0-100.0) fL MCH 37.7 H (25.0-35.0) pg Plt Count 104 L (150-450) k/uL Macrocytosis Marked A Sodium 126 L 128 L (137-145) mmol/L Potassium 3.2 L (3.5-5.1) mmol/L Chloride 93 L (98-107) mmol/L Calcium 8.1 L (8.4-10.2) mg/dL Assessment and Plan Assessment: 1. Hyponatremia associated with poor solute intake. Serum sodium was 106 on initial admission and had dropped with normal saline. Status post 3% saline and currently maintained on Lasix drip for volume overload. Serum sodium is slowly improving. Patient remains hypervolemic 2. History of EtOH abuse with concern for alcoholic hepatitis. 3. Benign hypertension with low blood pressures initially currently improved 4. Ascites status post paracentesis with 3 L of fluid removed 5. Volume overload 6. Metabolic acidosis from IV fluids and likely compensatory mechanism for respiratory alkalosis from liver disease Plan: Resume Lasix drip Replace potassium Repeat labs in a.m. Try to encourage increased oral intake when patient is more awake.
[2022-07-01] MEDS: FUROSEMIDE 100 MG in SODIUM CHLORIDE 0.9% 90 ML IV SCH (09:59)
--- NOTE | 2022-07-01 12:37 | P.PN ---
Subjective Progress Note Date: 07/01/22 Principal diagnosis: Severe hyponatremia this is a 71-year-old female, heavy drinker, patient drinks on a daily basis, brought into the hospital with one month history of nausea and vomiting, constipation, and her abdomen has been gradually getting more and more distended.patient is not a great historian but she has been complaining of fatigue, and not feeling well. Her son insisted that she comes into the ER.upon her initial evaluation in the ER, patient was noted to be hyponatremic with a sodium of 105. She was also noted to have heterogeneous liver possible cirrhosis and possible hepatitis. Patient drinks on the average of one bottle of wine a day.CT abdomen and pelvis also showed moderate abdominal ascites which is a new compared to previous exam done in 2019.at any rate considering her profound hyponatremia I was asked to see the patient on consultation. And she was admitted to the ICU. Started initially on 3% saline as per nephrology to get her sodium slowly up to the range of 120/125 Reevaluated today on 06/28/22, patient remains in the ICU, she is feeling better, she is on room air, does not seem to be in any distress, patient is supposed to undergo paracentesis today. Her sodium is correcting nicely and slowly. Patient is now not receiving any IV fluids. And again her sodium seems to be coming up nicely today's sodium is 114, patient was admitted with a sodium of 104 on admission patient denies any shortness of breath no cough no wheezing no nausea no vomiting no abdominal pain no melena no hematemesis remains on the CIWA protocol, and seems to be doing well Reevaluated today on 06/29/22, patient remains in the ICU, her hyponatremia is responding well to treatment slowly patient's sodium today is 117, she has a urine output of 20-30 mL/h, she had 3 L of fluid drained from her peritoneal cavity yesterday by interventional radiology results of which are pending. Patient was noted to have evidence of UTI, and she is now on Rocephin empirically. Her ammonia level was noted to be 45 today, and she was placed on lactulose. Patient remains on the CIWA protocol. Intermittently noted to be confused, but overall she is doing well. And she seems to be quite slow and lethargic not to mention the patient is receiving Ativan for potential withdrawal basic metabolic profile was noted today sodium is 117 her renal profile is normal anion gap is 14 BUN is 8 and creatinine is 0.98 Patient is still in ICU, seen today on 06/30/22, she seems to be intermittently confused, she is on the CIWA protocol for alcohol withdrawal, remains on Lasix and drip at 10 mg per hour. She is an negative balance of 1.7 L in the last 24 hours. Sodium today is up to 124. Patient is hemodynamically stable, and intermittent confusion is an issue, and she will remain in the ICU mostly because of her confusion. Remains on antibiotics/Rocephin for UTI. Reevaluated today on 07/01/22, patient remains in the ICU, intermittently confused, but overall she seems to be arousable, follows simple instructions, and she is not requiring much in terms of sedation for her potential alcohol withdrawal. Her last dose of Ativan was last night. Her sodium is up to 128 electrolytes are normal except for low potassium of 3.2 CBC is normal, urine is positive for E. coli., Peritoneal fluid was noted, cultures are pending on the fluid, so far no clear-cut evidence of infection. Objective - Vital Signs Vital signs: Vital Signs Temp 98.2 F 07/01/22 08:00 Pulse 102 H 07/01/22 09:00 Resp 19 07/01/22 09:00 BP 115/74 07/01/22 09:00 Pulse Ox 95 07/01/22 09:00 FiO2 Intake & Output 06/30/22 07/01/22 07/01/22 18:59 06:59 18:59 Intake Total 179 Output Total 1375 450 60 Balance -1196 -450 -60 Weight 80 kg Intake: IV 130 0.9 90 Furosemide 100 mg In 40 Sodium Chloride 0.9% 90 ml @ 5 MG/HR 5 mls/hr IV .Q20H [facility] Rx#:[id number] Intake, IV Titration 49 Amount Furosemide 100 mg In 49 Sodium Chloride 0.9% 90 ml @ 5 MG/HR 5 mls/hr IV .Q20H [facility] Rx#:[id number] Output: Urine 1375 450 60 Other: Voiding Method Indwelling Catheter Indwelling Catheter Indwelling Catheter - Exam General appearance: revealed 71-year-old female in no distress.on room air. HET: Head is normocephalic and atraumatic. Conjunctiva pink. Sclera anicteric. Neck: Supple without lymphadenopathy. Trachea midline. Heart:normal S1 and S2, no S3 gallop. Lungs: symmetrical chest expansion, clear throughout no crackles or rhonchi or wheezes Abdomen: obese, soft, slightly distended, no rebound no guarding. Abdomen seems to be less distended Skin: No rashes. Extremities: no clubbing edema or cyanosis. Neurological: Lethargic, arousable, follows simple instructions but confused Psychiatric: Depressed mood, flat affect, intermittently confused - Labs CBC & Chem 7: 07/01/22 05:05 07/01/22 05:05 Labs: Abnormal Lab Results - Last 24 Hours (Table) 07/01/22 07/01/22 Range/Units 05:05 05:05 RBC 3.04 L (3.80-5.40) m/uL Hct 33.7 L (34.0-46.0) % MCV 111.1 H (80.0-100.0) fL MCH 37.7 H (25.0-35.0) pg Plt Count 104 L (150-450) k/uL Macrocytosis Marked A Sodium 128 L (137-145) mmol/L Potassium 3.2 L (3.5-5.1) mmol/L Chloride 93 L (98-107) mmol/L Calcium 8.1 L (8.4-10.2) mg/dL Assessment and Plan Assessment: impression: Severe hyponatremia secondary to excessive alcohol use, poor salt intake, and excessive fluid intake alcoholism Suspect liver cirrhosis and ascites Benign essential hypertension Hypomagnesemia Alcoholic hepatitis Acute urinary tract infection, gram-negative bacilli noted in the urine culture Recommendation: Continue to monitor daily sodium Continue Rocephin for UTI Transfer out of the ICU to regular medical floor Continue alcohol withdrawal protocol Cultures from the paracentesis fluid are pending Again we'll recommend transfer out of the ICU to regular medical floor today We will continue to follow as needed Time with Patient: Less than 30
[2022-07-01] MEDS: NOREPINEPHRINE 8 MG in SODIUM CHLORIDE 0.9% 250 ML IV SCH (18:47)
[2022-07-02] MEDS: FUROSEMIDE 100 MG in SODIUM CHLORIDE 0.9% 90 ML IV SCH ×4 (00:47→22:47)
[2022-07-02] MEDS: MIDODRINE 5 MG TAB PO SCH ×3 (07:12→17:23)
[2022-07-02] MEDS: ALBUTEROL NEBULIZED 2.5 MG/3 ML INHALATION SCH ×3 (08:19→20:09)
[2022-07-02] MEDS: LACTULOSE 20 GM/30 ML CUP PO SCH ×2 (08:28)
[2022-07-02] MEDS: HEPARIN SODIUM,PORCINE/PF 5,000 UNIT/0.5 ML SYRINGE SQ SCH ×3 (09:43→22:52)
[2022-07-02] MEDS: FOLIC ACID 1 MG TAB PO SCH (09:45)
[2022-07-02] MEDS: HYDROCORTISONE SUCCINATE 100 MG/2 ML VIAL IV SCH (09:45)
[2022-07-02] MEDS: MULTIVITAMINS, THERA 1 EACH TAB PO SCH (09:46)
[2022-07-02] MEDS: THIAMINE 100 MG TAB PO SCH (09:46)
[2022-07-02] MEDS: SODIUM BICARBONATE TAB 650 MG TAB PO SCH ×2 (09:46→22:52)
[2022-07-02] MEDS: PANTOPRAZOLE 40 MG/10 ML VIAL IVP SCH (09:46)
[2022-07-02] MEDS: RIFAXIMIN 550 MG TABLET PO SCH ×2 (09:47→22:52)
--- NOTE | 2022-07-02 10:47 | P.PN ---
Subjective Patient is seen for follow-up for severe hyponatremia and volume overload. Patient was maintained on Lasix drip and this was discontinued on 06/30/2022. Urine output has decreased to about 30-40 mL an hour. Subsequently the Lasix drip was restarted yesterday. She remains quite edematous with no significant shortness of breath No complaints today Objective - Vital Signs Vital signs: Vital Signs Temp 97.7 F 07/02/22 08:00 Pulse 86 07/02/22 08:23 Resp 14 07/02/22 08:00 BP 123/82 07/02/22 08:00 Pulse Ox 95 07/02/22 08:00 FiO2 Intake & Output 07/01/22 07/02/22 07/02/22 18:59 06:59 18:59 Intake Total 60 100 89.334 Output Total 1760 1500 Balance -1700 -1400 89.334 Intake: IV 60 Furosemide 100 mg In 60 Sodium Chloride 0.9% 90 ml @ 5 MG/HR 5 mls/hr IV .Q20H [facility] Rx#:[id number] Intake, IV Titration 100 89.334 Amount Furosemide 100 mg In 100 89.334 Sodium Chloride 0.9% 90 ml @ 10 MG/HR 10 mls/hr IV .Q10H [facility] Rx#: [id number] Output: Urine 1760 1500 Other: Voiding Method Indwelling Catheter Indwelling Catheter - Exam Patient is awake. Mentation slightly improved from yesterday. 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 Hyponatremia associated with poor solute intake. Serum sodium was 106 on i nitial admission and had dropped with normal saline. Status post 3% saline and currently maintained on Lasix drip for volume overload. Serum sodium is slowly improving. Patient remains hypervolemic 2. History of EtOH abuse with concern for alcoholic hepatitis. 3. Benign hypertension with low blood pressures initially currently improved 4. Ascites status post paracentesis with 3 L of fluid removed 5. Volume overload 6. Metabolic acidosis from IV fluids and likely compensatory mechanism for respiratory alkalosis from liver disease Plan: Continue Lasix drip Replace potassium Repeat labs today and in a.m. Try to encourage increased oral intake when patient is more awake.
[2022-07-02 11:43] LABS: African American GFR (CKD) >90 (>60 ml/min/1.73 sqM); Anion Gap 13 mmol/L; Blood Urea Nitrogen 15 mg/dL (7-17); Calcium 7.6 mg/dL (8.4-10.2); Carbon Dioxide 25 mmol/L (22-30); Chloride 87 mmol/L (98-107); Glucose 102 mg/dL (74-99); Non-African American GFR(CKD) 87 (>60 ml/min/1.73 sqM); Sodium 125 mmol/L (137-145)
[2022-07-02 11:58] LABS: Potassium 2.6 mmol/L (3.5-5.1)
[2022-07-02] MEDS: POTASSIUM CHLORIDE ER 20 MEQ TAB.ER PO SCH ×5 (12:26→19:15)
--- NOTE | 2022-07-02 12:33 | P.PN ---
Subjective Progress Note Date: 07/02/22 This is a 71-year-old female, heavy drinker, patient drinks on a daily basis, brought into the hospital with one month history of nausea and vomiting, constipation, and her abdomen has been gradually getting more and more distended.patient is not a great historian but she has been complaining of fatigue, and not feeling well. Her son insisted that she comes into the ER.upon her initial evaluation in the ER, patient was noted to be hyponatremic with a sodium of 105. She was also noted to have heterogeneous liver possible cirrhosis and possible hepatitis. Patient drinks on the average of one bottle of wine a day.CT abdomen and pelvis also showed moderate abdominal ascites which is a new compared to previous exam done in 2019.at any rate considering her profound hyponatremia I was asked to see the patient on consultation. And she was admitted to the ICU. Started initially on 3% saline as per nephrology to get her sodium slowly up to the range of 120/125 Reevaluated today on 06/28/22, patient remains in the ICU, she is feeling better, she is on room air, does not seem to be in any distress, patient is supposed to undergo paracentesis today. Her sodium is correcting nicely and slowly. Patient is now not receiving any IV fluids. And again her sodium seems to be coming up nicely today's sodium is 114, patient was admitted with a sodium of 104 on admission patient denies any shortness of breath no cough no wheezing no nausea no vomiting no abdominal pain no melena no hematemesis remains on the CIWA protocol, and seems to be doing well Reevaluated today on 06/29/22, patient remains in the ICU, her hyponatremia is responding well to treatment slowly patient's sodium today is 117, she has a urine output of 20-30 mL/h, she had 3 L of fluid drained from her peritoneal cavity yesterday by interventional radiology results of which are pending. Patient was noted to have evidence of UTI, and she is now on Rocephin empirically. Her ammonia level was noted to be 45 today, and she was placed on lactulose. Patient remains on the CIWA protocol. Intermittently noted to be confused, but overall she is doing well. And she seems to be quite slow and lethargic not to mention the patient is receiving Ativan for potential withdrawal basic metabolic profile was noted today sodium is 117 her renal profile is normal anion gap is 14 BUN is 8 and creatinine is 0.98 Patient is still in ICU, seen today on 06/30/22, she seems to be intermittently confused, she is on the CIWA protocol for alcohol withdrawal, remains on Lasix and drip at 10 mg per hour. She is an negative balance of 1.7 L in the last 24 hours. Sodium today is up to 124. Patient is hemodynamically stable, and inte rmittent confusion is an issue, and she will remain in the ICU mostly because of her confusion. Remains on antibiotics/Rocephin for UTI. Reevaluated today on 07/01/22, patient remains in the ICU, intermittently confused, but overall she seems to be arousable, follows simple instructions, and she is not requiring much in terms of sedation for her potential alcohol withdrawal. Her last dose of Ativan was last night. Her sodium is up to 128 electrolytes are normal except for low potassium of 3.2 CBC is normal, urine is positive for E. coli., Peritoneal fluid was noted, cultures are pending on the fluid, so far no clear-cut evidence of infection. The patient is seen today 07/02/2022 in follow-up in the intensive care unit. She is currently resting comfortably in bed. Awake and alert in no acute distress. Still somewhat slow to respond. She does admit to drinking 3 glasses of wine daily. She remains in the CIWA protocol. She is continued on a Lasix drip at 10 mg per hour. She remains on antibiotics in the form of ceftriaxone. Continued on sodium bicarbonate tablets. Current sodium 125. Potassium 2.6. Chloride 87. BUN 1915. Creatinine 0.69. Potassium is being replaced. She is maintaining good O2 saturations in the mid to upper 90s on room air. Afebrile. Hemodynamically stable. Objective - Vital Signs Vital signs: Vital Signs Temp 98.2 F 07/02/22 11:34 Pulse 93 07/02/22 11:34 Resp 18 07/02/22 11:34 BP 138/80 07/02/22 11:34 Pulse Ox 95 07/02/22 08:00 FiO2 Intake & Output 07/01/22 07/02/22 07/02/22 18:59 06:59 18:59 Intake Total 60 100 89.334 Output Total 1760 1500 700 Balance -1700 -1400 -610.666 Intake: IV 60 Furosemide 100 mg In 60 Sodium Chloride 0.9% 90 ml @ 5 MG/HR 5 mls/hr IV .Q20H [facility] Rx#:[id number] Intake, IV Titration 100 89.334 Amount Furosemide 100 mg In 100 89.334 Sodium Chloride 0.9% 90 ml @ 5 MG/HR 5 mls/hr IV .Q20H [facility] Rx#:[id number] Output: Urine 1760 1500 700 Other: Voiding Method Indwelling Catheter Indwelling Catheter Indwelling Catheter - Exam GENERAL EXAM: Alert, 71-year-old female, on room air, comfortable in no apparent distress. HEAD: Normocephalic. EYES: Normal reaction of pupils, equal size. NOSE: Clear with pink turbinates. THROAT: No erythema or exudates. NECK: No masses, no JVD. CHEST: No chest wall deformity. LUNGS: Equal air entry with no crackles, wheeze, rhonchi or dullness. CVS: S1 and S2 normal with no audible murmur, regular rhythm. ABDOMEN: Abdominal distention, tenderness, normal bowel sounds, no guarding or rigidity. SPINE: No scoliosis or deformity SKIN: No rashes CENTRAL NERVOUS SYSTEM: No focal deficits, tone is normal in all 4 extremities. EXTREMITIES: There is no peripheral edema. No clubbing, no cyanosis. Peripheral pulses are intact. - Labs CBC & Chem 7: 07/01/22 05:05 07/02/22 10:54 Labs: Abnormal Lab Results - Last 24 Hours (Table) 07/01/22 07/02/22 Range/Units 11:25 10:54 Sodium 125 L (137-145) mmol/L Potassium 3.3 L 2.6 L* (3.5-5.1) mmol/L Chloride 87 L (98-107) mmol/L Glucose 102 H (74-99) mg/dL Calcium 7.6 L (8.4-10.2) mg/dL Assessment and Plan Assessment: Severe hyponatremia secondary to excessive alcohol use, poor salt intake, and excessive fluid intake Alcoholism Suspect liver cirrhosis and ascites Benign essential hypertension Hypomagnesemia Alcoholic hepatitis Acute urinary tract infection secondary to E. coli currently on ceftriaxone Plan: The patient was seen and evaluated Labs and medications reviewed Stable and on room air Transfer to the regular medical floor We'll continue to follow I have personally seen and examined the patient, performed the documentation and the assessment and plan as written. Number of minutes spent on the visit: 10.
--- NOTE | 2022-07-02 13:10 | P.PN ---
Subjective Progress Note Date: 07/02/22 Principal diagnosis: Alcoholic hepatitis This a pleasant 71-year-old female who presented to the emergency department yesterday with complaints of nausea and vomiting 1 month duration. She has been having progressively distended abdomen, increased weakness, decreased urine output and bowel movements. On admission patient was found to be hyponatremic with a sodium of 105. She was admitted to the ICU for further evaluation. She was also noted to have heterogeneity of the liver possible cirrhosis versus hepatitis. Gastroenterology was consulted for alcoholic hepatitis. Patient admits to drinking one bottle of wine a day, she states she's been drinking daily for 1 year duration due to pain. Prior to that she states that she drinks 1-2 bottles of wine a week. She is also complaining of abdominal discomfort, nausea and vomiting especially after eating. States she's not been eating well at home, mostly drinking water and not pop. Denies any previous EGD, states that she was told in the past that she had an ulcer but she has not had an EGD performed. 06/28/2022: Patient seen and examined is a follow-up in the ICU. She is very shaky and has tremors today. Other than that patient states she feels okay. Nephrology is following and has ordered a paracentesis. Sodium improving. Patient was started on Lasix 40 mg every 12 hours. No acute changes or name. 06/29/2022: Patient followed up in the ICU. Yesterday she underwent paracentesis with 3 L of fluid removed. The patient a little confused and weak today. Total bilirubin 4.8 AST 139 AST 41 alkaline phosphatase 99, ammonia 45. 07/01/2022: Patient is seen and examined as a follow-up in the ICU. She is currently MedSurg however there are no beds available. LFTs continue to improve. On nursing is reporting that she still has a little bit of some underlying confusion however most recent ammonia level less than 9. She's having at least 2-3 bowel movements a day. No abdominal pain, nausea or vomiting. Objective - Vital Signs Vital signs: Vital Signs Temp 97.6 F 07/02/22 02:00 Pulse 86 07/02/22 08:23 Resp 12 07/02/22 02:00 BP 136/86 07/02/22 02:00 Pulse Ox 98 07/02/22 02:00 FiO2 Intake & Output 07/01/22 07/02/22 07/02/22 18:59 06:59 18:59 Intake Total 60 100 64.167 Output Total 1760 1500 Balance -1700 -1400 64.167 Intake: IV 60 Furosemide 100 mg In 60 Sodium Chloride 0.9% 90 ml @ 5 MG/HR 5 mls/hr IV .Q20H [facility] Rx#:[id number] Intake, IV Titration 100 64.167 Amount Furosemide 100 mg In 100 64.167 Sodium Chloride 0.9% 90 ml @ 10 MG/HR 10 mls/hr IV .Q10H [facility] Rx#: [id number] Output: Urine 1760 1500 Other: Voiding Method Indwelling Catheter Indwelling Catheter - Exam General appearance: The patient is fatigued, appears in no acute distress. HET: Head is normocephalic and atraumatic. Conjunctiva pink. Sclera anicteric. Neck: Supple without lymphadenopathy. Abdomen: Soft, nontender, nondistended. No guarding or rigidity. Extremities: Normal skin color and turgor. Bilateral lower extremity edema. Skin: No rashes, jaundice. Neurological: No focal deficits. Alert and oriented x3. - Labs CBC & Chem 7: 07/01/22 05:05 07/02/22 10:54 Labs: Abnormal Lab Results - Last 24 Hours (Table) 07/01/22 Range/Units 11:25 Potassium 3.3 L (3.5-5.1) mmol/L Assessment and Plan (1) Alcoholic hepatitis with ascites Narrative/Plan: 71-year-old admitted with nausea vomiting, weakness and severe hyponatremia. Patient has a history of alcohol intoxication, abuse drinking at least 1 bottle of wine the last one year duration. Patient was noted to have elevated LFTs on admission, CT of the abdomen and pelvis reporting heterogeneity of the liver suggestive of cirrhosis or hepatitis. Patient likely has underlying cirrhosis of the liver related to alcohol abuse. New onset ascites. Patient's abdomen soft at this time, may require paracentesis in the next 1-2 days duration and will get fluid studies at that time if needed. Otherwise discussed with patient importance of alcohol abstinence and need for outpatient follow-up for her underlying liver disease. Nephrology following patient closely. Lasix 40 mg twice a day added. Paracentesis completed with 3 L removed. Fluid studies consistent with underlying liver disease patient with decompensated cirrhosis of the liver.. Current Visit: Yes Status: Acute Code(s): K70.11 - ALCOHOLIC HEPATITIS WITH ASCITES SNOMED Code(s): 4820378777541972 (2) Nausea and vomiting Narrative/Plan: Patient with complaints of nausea and vomiting related to eating. Unclear etiology at this time. May be related to underlying hyponatremia and hypomagnesemia. No plans on EGD at this time. Will continue with proton X 40 mg daily. And reporting oral and pharyngeal phases of the swallow that are within normal limits. Patient did experience some complaints of esophageal pain and a sensation of nausea after eating textured food. Will keep on clear liquid diet and advance to full liquid diet in the morning. Current Visit: Yes Status: Acute Code(s): R11.2 - NAUSEA WITH VOMITING, UNSPECIFIED SNOMED Code(s): 93777897 (3) Hyponatremia Current Visit: Yes Status: Acute Code(s): E87.1 - HYPO-OSMOLALITY AND HYPONATREMIA SNOMED Code(s): 98494279 (4) Hyperammonemia Narrative/Plan: Labs 30 g 3 times a day, titrate to have 3-4 bowel movements daily. Current Visit: Yes Status: Acute Code(s): E72.20 - DISORDER OF UREA CYCLE METABOLISM, UNSPECIFIED SNOMED Code(s): 1761542 Plan: 1. Continue symptomatic and supportive care 2. Avoid hepatotoxic medications 3. Daily CMP, ammonia, repeat INR tomorrow 4. Alcohol abstinence 5. Low-sodium diet 6. No plans on EGD at this time 7. Lactulose 30 g 3 times a day, titrate to have 3-4 bowel movements daily 8. Continue with recommendations on diuretics from nephrology 9. Recommend outpatient follow-up with gastroenterology for underlying liver disease Thank you for this consultation, we will continue to follow. Dr. Percy Tejada I agree with the dictator's note, documented as a scribe by Bonita Ellsworth.
[2022-07-02] MEDS: NOREPINEPHRINE 8 MG in SODIUM CHLORIDE 0.9% 250 ML IV SCH (22:19)
--- NOTE | 2022-07-03 00:18 | P.PN ---
Subjective Progress Note Date: 06/28/22 Patient is a 71-year-old female with a known history of hypertension, hyperlipidemia, COPD, GERD, rheumatoid arthritis and daily alcohol use and prior history of smoking came to ER with complaints of nausea and vomiting for the past 1 month and is generalized weakness. Patient was also having decreased u rine output. Also complains of increased abdominal girth. Patient otherwise denies any fever or chills. No complaints of cough or sputum production. No headache or dizziness or lightheadedness. Denies any hematemesis or melena. On admission sodium level found to be [address] of the abdomen pelvis showed heterogenicity in the liver appeared new compared to wall exam and could be related to hepatitis or cirrhosis. There is moderate abdominal ascites which is new compared to old exam. Sigmoid diverticulosis without diverticulitis. There is clearing of the inflammatory changes anterior to the pancreatic head compatible exam. Chest x-ray showed there is some mild linear infiltrate and atelectasis left lung base. No heart failure. EKG showed sinus tachycardia Ultrasound of the abdomen showed ascites. Laboratory data showed WBC 8.3 hemoglobin 12.7 MCV 107.0 and platelets 160 Sodium 106 potassium 4.7 chloride 71 bicarb is 19 and BUN 3 and creatinine 0.59 lactic acid 3.12 calcium 7.7 Total bilirubin level is 6.6 and AST 190 ALT 51 and alk phos 135 Troponin 0.015 and proBNP 711 Amylase 70 lipase 244 Hepatitis panel not detected. Coronavirus PCR not detected On admission patient was tachycardic and hypotensive with blood pressure 93/69 pulse ox 99% on room air. 06/28/2022 Patient is in the MICU. Seems to be confused and not in acute distress. Patient underwent paracentesis today. Otherwise patient remains hypertonic saline and sodium level is improving slowly to 114 today. Patient otherwise denies any complaints of chest pain or shortness of breath. No cough or sputum production. No abdominal pain. Currently on alcohol withdrawal protocol. Laboratory data reviewed. Pulmonary and nephrology is on board. Current medications reviewed. Objective - Vital Signs Vital signs: Vital Signs Temp 97.9 F 06/28/22 16:00 Pulse 100 06/28/22 20:57 Resp 14 06/28/22 20:00 BP 95/54 06/28/22 20:00 Pulse Ox 96 06/28/22 20:00 FiO2 Intake & Output 06/28/22 06/28/22 06/29/22 06:59 18:59 06:59 Intake Total 480 310 30 Output Total 265 409 25 Balance 215 -99 5 Weight 84.8 kg Intake: IV 480 130 30 Albumin Human 25% 50 ml 100 In Empty Bag 1 bag @ 50 mls/hr IVPB Q1H [facility] Rx#: [id number] Furosemide 100 mg In 5 5 Sodium Chloride 0.9% 90 ml @ 5 MG/HR 5 mls/hr IV .Q20H [facility] Rx#:[id number] Sodium Chloride 3%( 25 25 Hypertonic) 500 ml @ 25 mls/hr IV .Q20H [facility] Rx#: [id number] Sodium Chloride 3%( 480 Hypertonic) 500 ml @ 40 mls/hr IV .[id number] [facility] Rx #:[id number] Oral 180 Output: Urine 265 409 25 Other: Voiding Method Indwelling Catheter Indwelling Catheter Indwelling Catheter - Exam PHYSICAL EXAMINATION: Patient is lying in the bed comfortably, no acute distress, awake alert , co nfused, generalized weakness... HEENT: Normocephalic. Neck is supple. Pupils reactive. Nostrils clear. Oral cavity is moist. Neck reveals no JVD, carotid bruits, or thyromegaly. CHEST EXAMINATION: Trachea is central. Symmetrical expansion. Lung cervantes clear to auscultation and percussion. CARDIAC: Normal S1, S2 with no gallops. No murmurs ABDOMEN: Soft. Bowel sounds present. Discharge mucositis. Nontender. No organomegaly. No abdominal bruits. Extremities: 2+ edema edema. No clubbing or cyanosis Neurologically awake, alert, oriented x1-2 with well-coordinated movements. No gross focal deficits noted Skin: No rash or skin lesions. Psychiatric: Coperative. Could not be assessed completely l, Musculoskeletal: No joint swelling or deformity. Normal range of motion. - Labs CBC & Chem 7: 07/01/22 05:05 07/02/22 20:06 Labs: Abnormal Lab Results - Last 24 Hours (Table) 06/27/22 06/27/22 06/28/22 Range/Units 10:57 22:41 02:15 RBC (3.80-5.40) m/uL Hct (34.0-46.0) % MCV (80.0-100.0) fL MCH (25.0-35.0) pg Plt Count (150-450) k/uL Neutrophils # (Manual) (1.3-7.7) k/uL Lymphocytes # (Manual) (1.0-4.8) k/uL Sodium 111 L* 113 L* (137-145) mmol/L Chloride (98-107) mmol/L Carbon Dioxide (22-30) mmol/L BUN (7-17) mg/dL Glucose (74-99) mg/dL Calcium (8.4-10.2) mg/dL Ur Random Sodium <20 L (40-220) mmol/L 06/28/22 06/28/22 06/28/22 Range/Units 04:45 04:45 06:42 RBC 2.93 L (3.80-5.40) m/uL Hct 31.8 L (34.0-46.0) % MCV 108.4 H (80.0-100.0) fL MCH 39.1 H (25.0-35.0) pg Plt Count 145 L (150-450) k/uL Neutrophils # (Manual) 8.20 H (1.3-7.7) k/uL Lymphocytes # (Manual) 0.38 L (1.0-4.8) k/uL Sodium 114 L* 114 L* (137-145) mmol/L Chloride 86 L (98-107) mmol/L Carbon Dioxide 18 L (22-30) mmol/L BUN 6 L (7-17) mg/dL Glucose 148 H (74-99) mg/dL Calcium 7.3 L (8.4-10.2) mg/dL Ur Random Sodium (40-220) mmol/L 06/28/22 06/28/22 Range/Units 15:02 20:00 RBC (3.80-5.40) m/uL Hct (34.0-46.0) % MCV (80.0-100.0) fL MCH (25.0-35.0) pg Plt Count (150-450) k/uL Neutrophils # (Manual) (1.3-7.7) k/uL Lymphocytes # (Manual) (1.0-4.8) k/uL Sodium 114 L* 117 L* (137-145) mmol/L Chloride (98-107) mmol/L Carbon Dioxide (22-30) mmol/L BUN (7-17) mg/dL Glucose (74-99) mg/dL Calcium (8.4-10.2) mg/dL Ur Random Sodium (40-220) mmol/L Microbiology - Last 24 Hours (Table) 06/27/22 10:57 Urine Culture - Preliminary Urine,Voided Gram Neg Bacilli Assessment and Plan Assessment: Hyponatremia likely hypoosmolar with decreased oral intake. 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 Patient will be continued on hypertonic 3% saline and check sodium level every 2 hours. Symptomatic management for nausea and vomiting. Continue PPI. Started on clear liquid diet and follow-up daily CBC and CMP. Nephrology and GI is on board. Continue to follow closely. Prognosis . Time with Patient: Greater than 30
--- NOTE | 2022-07-03 00:27 | P.PN ---
Subjective Progress Note Date: 06/29/22 Patient is a 71-year-old female with a known history of hypertension, hyperlipidemia, COPD, GERD, rheumatoid arthritis and daily alcohol use and prior history of smoking came to ER with complaints of nausea and vomiting for the past 1 month and is generalized weakness. Patient was also having decreased u rine output. Also complains of increased abdominal girth. Patient otherwise denies any fever or chills. No complaints of cough or sputum production. No headache or dizziness or lightheadedness. Denies any hematemesis or melena. On admission sodium level found to be [address] of the abdomen pelvis showed heterogenicity in the liver appeared new compared to wall exam and could be related to hepatitis or cirrhosis. There is moderate abdominal ascites which is new compared to old exam. Sigmoid diverticulosis without diverticulitis. There is clearing of the inflammatory changes anterior to the pancreatic head compatible exam. Chest x-ray showed there is some mild linear infiltrate and atelectasis left lung base. No heart failure. EKG showed sinus tachycardia Ultrasound of the abdomen showed ascites. Laboratory data showed WBC 8.3 hemoglobin 12.7 MCV 107.0 and platelets 160 Sodium 106 potassium 4.7 chloride 71 bicarb is 19 and BUN 3 and creatinine 0.59 lactic acid 3.12 calcium 7.7 Total bilirubin level is 6.6 and AST 190 ALT 51 and alk phos 135 Troponin 0.015 and proBNP 711 Amylase 70 lipase 244 Hepatitis panel not detected. Coronavirus PCR not detected On admission patient was tachycardic and hypotensive with blood pressure 93/69 pulse ox 99% on room air. 06/28/2022 Patient is in the MICU. Seems to be confused and not in acute distress. Patient underwent paracentesis today. Otherwise patient remains hypertonic saline and sodium level is improving slowly to 114 today. Patient otherwise denies any complaints of chest pain or shortness of breath. No cough or sputum production. No abdominal pain. Currently on alcohol withdrawal protocol. Laboratory data reviewed. Pulmonary and nephrology is on board. 06/29/2022 Patient is in the MICU. Currently on Lasix drip and also 3 salin. Sodium level improved to 114 today. Advised patient underwent paracentesis with 3 L fluid removal yesterday. Patient remains confused and lethargic and weak.. Continued on alcohol wit hdrawal protocol. Pulmonary and nephrology is on board. Current medications reviewed. Objective - Vital Signs Vital signs: Vital Signs Temp 98.5 F 06/29/22 20:00 Pulse 99 06/29/22 22:00 Resp 19 06/29/22 22:00 BP 93/52 06/29/22 22:00 Pulse Ox 95 06/29/22 22:00 FiO2 Intake & Output 06/29/22 06/29/22 06/30/22 06:59 18:59 06:59 Intake Total 179.083 81 89.333 Output Total 367 785 360 Balance -187.917 -704 -270.667 Weight 83.688 kg Intake: IV 110 40 40 Furosemide 100 mg In 60 15 40 Sodium Chloride 0.9% 90 ml @ 5 MG/HR 5 mls/hr IV .Q20H [facility] Rx#:[id number] Sodium Chloride 3%( 50 25 Hypertonic) 500 ml @ 25 mls/hr IV .Q20H [facility] Rx#: [id number] Intake, IV Titration 69.083 41 49.333 Amount Furosemide 100 mg In 69.083 41 49.333 Sodium Chloride 0.9% 90 ml @ 5 MG/HR 5 mls/hr IV .Q20H [facility] Rx#:[id number] Output: Urine 367 785 360 Other: Voiding Method Indwelling Catheter Indwelling Catheter Indwelling Catheter # Bowel Movements 1 - Exam PHYSICAL EXAMINATION: Patient is lying in the bed comfortably, no acute distress, awake alert , confused, generalized weakness... HEENT: Normocephalic. Neck is supple. Pupils reactive. Nostrils clear. Oral cavity is moist. Neck reveals no JVD, carotid bruits, or thyromegaly. CHEST EXAMINATION: Trachea is central. Symmetrical expansion. Lung cervantes clear to auscultation and percussion. CARDIAC: Normal S1, S2 with no gallops. No murmurs ABDOMEN: Soft. Bowel sounds present. Discharge mucositis. Nontender. No organomegaly. No abdominal bruits. Extremities: 2+ edema edema. No clubbing or cyanosis Neurologically awake, alert, oriented x1-2 with well-coordinated movements. No gross focal deficits noted Skin: No rash or skin lesions. Psychiatric: Coperative. Could not be assessed completely l, Musculoskeletal: No joint swelling or deformity. Normal range of motion. - Labs CBC & Chem 7: 07/01/22 05:05 07/02/22 20:06 Labs: Abnormal Lab Results - Last 24 Hours (Table) 06/29/22 06/29/22 06/29/22 Range/Units 00:39 03:05 03:05 RBC 2.76 L (3.80-5.40) m/uL Hgb 10.5 L (11.4-16.0) gm/dL Hct 30.1 L (34.0-46.0) % MCV 108.9 H (80.0-100.0) fL MCH 37.9 H (25.0-35.0) pg Plt Count 131 L (150-450) k/uL Lymphocytes # 0.4 L (1.0-4.8) k/uL Sodium 118 L* 118 L* (137-145) mmol/L Chloride 87 L (98-107) mmol/L Carbon Dioxide 17 L (22-30) mmol/L Glucose 135 H (74-99) mg/dL Calcium 7.9 L (8.4-10.2) mg/dL Total Bilirubin 4.8 H (0.2-1.3) mg/dL AST 139 H (14-36) U/L ALT 41 H (4-34) U/L Ammonia (<30) umol/L Total Protein 6.1 L (6.3-8.2) g/dL Albumin 3.0 L (3.5-5.0) g/dL Vitamin B12 >2000.0 H (200.0-944.0) pg/mL 06/29/22 06/29/22 06/29/22 Range/Units 03:05 05:47 08:09 RBC (3.80-5.40) m/uL Hgb (11.4-16.0) gm/dL Hct (34.0-46.0) % MCV (80.0-100.0) fL MCH (25.0-35.0) pg Plt Count (150-450) k/uL Lymphocytes # (1.0-4.8) k/uL Sodium 117 L* 117 L* (137-145) mmol/L Chloride (98-107) mmol/L Carbon Dioxide (22-30) mmol/L Glucose (74-99) mg/dL Calcium (8.4-10.2) mg/dL Total Bilirubin (0.2-1.3) mg/dL AST (14-36) U/L ALT (4-34) U/L Ammonia 45 H (<30) umol/L Total Protein (6.3-8.2) g/dL Albumin (3.5-5.0) g/dL Vitamin B12 (200.0-944.0) pg/mL 06/29/22 06/29/22 Range/Units 13:06 19:10 RBC (3.80-5.40) m/uL Hgb (11.4-16.0) gm/dL Hct (34.0-46.0) % MCV (80.0-100.0) fL MCH (25.0-35.0) pg Plt Count (150-450) k/uL Lymphocytes # (1.0-4.8) k/uL Sodium 119 L* 120 L (137-145) mmol/L Chloride (98-107) mmol/L Carbon Dioxide (22-30) mmol/L Glucose (74-99) mg/dL Calcium (8.4-10.2) mg/dL Total Bilirubin (0.2-1.3) mg/dL AST (14-36) U/L ALT (4-34) U/L Ammonia (<30) umol/L Total Protein (6.3-8.2) g/dL Albumin (3.5-5.0) g/dL Vitamin B12 (200.0-944.0) pg/mL Microbiology - Last 24 Hours (Table) 06/27/22 10:57 Urine Culture - Final Urine,Voided Escherichia coli Assessment and Plan Assessment: Hyponatremia likely hypoosmolar with decreased oral intake. 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 Patient will be continued on hypertonic 3% saline and monitoe sodium level. on lasix drip Symptomatic management for nausea and vomiting. Continue PPI. Started on clear liquid diet and follow-up daily CBC and CMP. Nephrology is on board. Continue to follow closely. Prognosis . Time with Patient: Greater than 30
--- NOTE | 2022-07-03 00:31 | P.PN ---
Subjective Progress Note Date: 06/30/22 Patient is a 71-year-old female with a known history of hypertension, hyperlipidemia, COPD, GERD, rheumatoid arthritis and daily alcohol use and prior history of smoking came to ER with complaints of nausea and vomiting for the past 1 month and is generalized weakness. Patient was also having decreased u rine output. Also complains of increased abdominal girth. Patient otherwise denies any fever or chills. No complaints of cough or sputum production. No headache or dizziness or lightheadedness. Denies any hematemesis or melena. On admission sodium level found to be [address] of the abdomen pelvis showed heterogenicity in the liver appeared new compared to wall exam and could be related to hepatitis or cirrhosis. There is moderate abdominal ascites which is new compared to old exam. Sigmoid diverticulosis without diverticulitis. There is clearing of the inflammatory changes anterior to the pancreatic head compatible exam. Chest x-ray showed there is some mild linear infiltrate and atelectasis left lung base. No heart failure. EKG showed sinus tachycardia Ultrasound of the abdomen showed ascites. Laboratory data showed WBC 8.3 hemoglobin 12.7 MCV 107.0 and platelets 160 Sodium 106 potassium 4.7 chloride 71 bicarb is 19 and BUN 3 and creatinine 0.59 lactic acid 3.12 calcium 7.7 Total bilirubin level is 6.6 and AST 190 ALT 51 and alk phos 135 Troponin 0.015 and proBNP 711 Amylase 70 lipase 244 Hepatitis panel not detected. Coronavirus PCR not detected On admission patient was tachycardic and hypotensive with blood pressure 93/69 pulse ox 99% on room air. 06/28/2022 Patient is in the MICU. Seems to be confused and not in acute distress. Patient underwent paracentesis today. Otherwise patient remains hypertonic saline and sodium level is improving slowly to 114 today. Patient otherwise denies any complaints of chest pain or shortness of breath. No cough or sputum production. No abdominal pain. Currently on alcohol withdrawal protocol. Laboratory data reviewed. Pulmonary and nephrology is on board. 06/29/2022 Patient is in the MICU. Currently on Lasix drip and also 3 salin. Sodium level improved to 114 today. Advised patient underwent paracentesis with 3 L fluid removal yesterday. Patient remains confused and lethargic and weak.. Continued on alcohol wit hdrawal protocol. Pulmonary and nephrology is on board. 06/30/2022 Patient is in the MICU. Confused but seems to be more awake and oriented today. Currently being current on Lasix drip and also was on 3% saline. Sodium level improved to 124 today. Patient is also on alcohol withdrawal protocol. Currently maintained antibiotics in the form of ceftriaxone for UTI. Laboratory data reviewed. Current medications reviewed. Objective - Vital Signs Vital signs: Vital Signs Temp 98.2 F 06/30/22 08:00 Pulse 91 06/30/22 13:00 Resp 22 06/30/22 13:00 BP 123/67 06/30/22 13:00 Pulse Ox 93 L 06/30/22 13:00 FiO2 Intake & Output 06/29/22 06/30/22 06/30/22 18:59 06:59 18:59 Intake Total 81 361.166 139 Output Total 785 1385 900 Balance -704 -1023.834 -761 Weight 81.5 kg Intake: IV 40 220 90 0.9 100 50 Furosemide 100 mg In 15 120 40 Sodium Chloride 0.9% 90 ml @ 5 MG/HR 5 mls/hr IV .Q20H [facility] Rx#:[id number] Sodium Chloride 3%( 25 Hypertonic) 500 ml @ 25 mls/hr IV .Q20H [facility] Rx#: [id number] Intake, IV Titration 41 141.166 49 Amount Furosemide 100 mg In 41 141.166 49 Sodium Chloride 0.9% 90 ml @ 5 MG/HR 5 mls/hr IV .Q20H [facility] Rx#:[id number] Output: Urine 785 1385 900 Other: Voiding Method Indwelling Catheter Indwelling Catheter Indwelling Catheter # Bowel Movements 1 - Exam PHYSICAL EXAMINATION: Patient is lying in the bed comfortably, no acute distress, awake alert , confused, generalized weakness... HEENT: Normocephalic. Neck is supple. Pupils reactive. Nostrils clear. Oral cavity is moist. Neck reveals no JVD, carotid bruits, or thyromegaly. CHEST EXAMINATION: Trachea is central. Symmetrical expansion. Lung cervantes clear to auscultation and percussion. CARDIAC: Normal S1, S2 with no gallops. No murmurs ABDOMEN: Soft. Bowel sounds present. Discharge mucositis. Nontender. No organomegaly. No abdominal bruits. Extremities: 2+ edema. No clubbing or cyanosis Neurologically awake, alert, oriented x1-2 with well-coordinated movements. No gross focal deficits noted Skin: No rash or skin lesions. Psychiatric: Coperative. Could not be assessed completely l, Musculoskeletal: No joint swelling or deformity. Normal range of motion. - Labs CBC & Chem 7: 07/01/22 05:05 07/02/22 20:06 Labs: Abnormal Lab Results - Last 24 Hours (Table) 06/29/22 06/30/22 06/30/22 Range/Units 19:10 00:45 04:37 PT (9.0-12.0) sec INR (<1.2) Sodium 120 L 121 L 124 L (137-145) mmol/L Chloride 93 L (98-107) mmol/L Glucose 113 H (74-99) mg/dL Calcium 7.6 L (8.4-10.2) mg/dL Total Bilirubin 3.8 H (0.2-1.3) mg/dL AST 145 H (14-36) U/L ALT 46 H (4-34) U/L Total Protein 5.8 L (6.3-8.2) g/dL Albumin 2.8 L (3.5-5.0) g/dL 06/30/22 06/30/22 Range/Units 04:37 10:56 PT 21.6 H (9.0-12.0) sec INR 2.2 H (<1.2) Sodium 126 L (137-145) mmol/L Chloride (98-107) mmol/L Glucose (74-99) mg/dL Calcium (8.4-10.2) mg/dL Total Bilirubin (0.2-1.3) mg/dL AST (14-36) U/L ALT (4-34) U/L Total Protein (6.3-8.2) g/dL Albumin (3.5-5.0) g/dL Microbiology - Last 24 Hours (Table) 06/27/22 10:57 Urine Culture - Final Urine,Voided Escherichia coli Assessment and Plan Assessment: Hyponatremia likely hypoosmolar with decreased oral intake. 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 Patient will be continued on hypertonic 3% saline and monitoe sodium level. on lasix drip Symptomatic management for nausea and vomiting. Continue PPI. Started on clear liquid diet and follow-up daily CBC and CMP. Nephrology is on board. Continue to follow closely. Prognosis .
--- NOTE | 2022-07-03 00:34 | P.PN ---
Subjective Progress Note Date: 07/01/22 Patient is a 71-year-old female with a known history of hypertension, hyperlipidemia, COPD, GERD, rheumatoid arthritis and daily alcohol use and prior history of smoking came to ER with complaints of nausea and vomiting for the past 1 month and is generalized weakness. Patient was also having decreased u rine output. Also complains of increased abdominal girth. Patient otherwise denies any fever or chills. No complaints of cough or sputum production. No headache or dizziness or lightheadedness. Denies any hematemesis or melena. On admission sodium level found to be [address] of the abdomen pelvis showed heterogenicity in the liver appeared new compared to wall exam and could be related to hepatitis or cirrhosis. There is moderate abdominal ascites which is new compared to old exam. Sigmoid diverticulosis without diverticulitis. There is clearing of the inflammatory changes anterior to the pancreatic head compatible exam. Chest x-ray showed there is some mild linear infiltrate and atelectasis left lung base. No heart failure. EKG showed sinus tachycardia Ultrasound of the abdomen showed ascites. Laboratory data showed WBC 8.3 hemoglobin 12.7 MCV 107.0 and platelets 160 Sodium 106 potassium 4.7 chloride 71 bicarb is 19 and BUN 3 and creatinine 0.59 lactic acid 3.12 calcium 7.7 Total bilirubin level is 6.6 and AST 190 ALT 51 and alk phos 135 Troponin 0.015 and proBNP 711 Amylase 70 lipase 244 Hepatitis panel not detected. Coronavirus PCR not detected On admission patient was tachycardic and hypotensive with blood pressure 93/69 pulse ox 99% on room air. 06/28/2022 Patient is in the MICU. Seems to be confused and not in acute distress. Patient underwent paracentesis today. Otherwise patient remains hypertonic saline and sodium level is improving slowly to 114 today. Patient otherwise denies any complaints of chest pain or shortness of breath. No cough or sputum production. No abdominal pain. Currently on alcohol withdrawal protocol. Laboratory data reviewed. Pulmonary and nephrology is on board. 06/29/2022 Patient is in the MICU. Currently on Lasix drip and also 3 salin. Sodium level improved to 114 today. Advised patient underwent paracentesis with 3 L fluid removal yesterday. Patient remains confused and lethargic and weak.. Continued on alcohol wit hdrawal protocol. Pulmonary and nephrology is on board. 06/30/2022 Patient is in the MICU. Confused but seems to be more awake and oriented today. Currently being current on Lasix drip and also was on 3% saline. Sodium level improved to 124 today. Patient is also on alcohol withdrawal protocol. Currently maintained antibiotics in the form of ceftriaxone for UTI. Laboratory data reviewed. 07/01/2022 Patient remains in the MICU. Awake alert but still confused. Clinically improving. Lasix drip has been discontinued yesterday. Was started on IV push Lasix. Otherwise sodium level improved to 128 today. Denies any nausea vomiting abdominal pain. On dysphagia level 2 diet. Patient is on antibiotics for normal ceftriaxone for urinary tract infection. Sodium 128 potassium 3.2 chloride 93 bicarb is 23 BUN 15 and creatinine 0.89 calcium 8.1 WBC 8.1 hemoglobin 0.5 and platelets 104 Nephrology and pulmonary is on board Current medications reviewed. Objective - Vital Signs Vital signs: Vital Signs Temp 98.2 F 07/01/22 08:00 Pulse 102 H 07/01/22 09:00 Resp 19 07/01/22 09:00 BP 115/74 07/01/22 09:00 Pulse Ox 95 07/01/22 09:00 FiO2 Intake & Output 06/30/22 07/01/22 07/01/22 18:59 06:59 18:59 Intake Total 179 Output Total 1375 450 60 Balance -1196 -450 -60 Weight 80 kg Intake: IV 130 0.9 90 Furosemide 100 mg In 40 Sodium Chloride 0.9% 90 ml @ 5 MG/HR 5 mls/hr IV .Q20H [facility] Rx#:[id number] Intake, IV Titration 49 Amount Furosemide 100 mg In 49 Sodium Chloride 0.9% 90 ml @ 5 MG/HR 5 mls/hr IV .Q20H [facility] Rx#:[id number] Output: Urine 1375 450 60 Other: Voiding Method Indwelling Catheter Indwelling Catheter Indwelling Catheter - Exam PHYSICAL EXAMINATION: Patient is lying in the bed comfortably, no acute distress, awake alert , confused, generalized weakness... HEENT: Normocephalic. Neck is supple. Pupils reactive. Nostrils clear. Oral cavity is moist. Neck reveals no JVD, carotid bruits, or thyromegaly. CHEST EXAMINATION: Trachea is central. Symmetrical expansion. Lung cervantes clear to auscultation and percussion. CARDIAC: Normal S1, S2 with no gallops. No murmurs ABDOMEN: Soft. Bowel sounds present. distended. Nontender. No organomegaly. No abdominal bruits. Extremities: 2+ edema edema. No clubbing or cyanosis Neurologically awake, alert, oriented x1-2 with well-coordinated movements. No gross focal deficits noted Skin: No rash or skin lesions. Psychiatric: Coperative. Could not be assessed completely l, Musculoskeletal: No joint swelling or deformity. Normal range of motion. - Labs CBC & Chem 7: 07/01/22 05:05 07/02/22 20:06 Labs: Abnormal Lab Results - Last 24 Hours (Table) 07/01/22 07/01/22 Range/Units 05:05 05:05 RBC 3.04 L (3.80-5.40) m/uL Hct 33.7 L (34.0-46.0) % MCV 111.1 H (80.0-100.0) fL MCH 37.7 H (25.0-35.0) pg Plt Count 104 L (150-450) k/uL Macrocytosis Marked A Sodium 128 L (137-145) mmol/L Potassium 3.2 L (3.5-5.1) mmol/L Chloride 93 L (98-107) mmol/L Calcium 8.1 L (8.4-10.2) mg/dL Assessment and Plan Assessment: Hyponatremia likely hypoosmolar with decreased oral intake. Intractable nausea and vomiting and decreased oral intake Acute alcohol withdrawal symptoms Acute alcoholic hepatitis Ascites E. coli urinary tract infection Liver cirrhosis likely alcohol related Hyperbilirubinemia Alcohol abuse Hypomagnesemia 0.9 Macrocytosis MCV 107.0 due to alcohol abuse DVT prophylax with heparin subcu GI prophylaxis Plan: Patient is being monitored in the MICU.Lasix drip has been discontinued and IV push was given today. Sodium level improved to 128 today. Patient was continued on hypertonic 3% saline and monitore sodium level. Symptomatic management for nausea and vomiting. Continue PPI. c/w oral diet and follow-up daily CBC and CMP. Nephrology is on board. Continue to follow closely. Prognosis . Time with Patient: Greater than 30
--- NOTE | 2022-07-03 00:35 | P.PN ---
Subjective Progress Note Date: 07/02/22 Patient is a 71-year-old female with a known history of hypertension, hyperlipidemia, COPD, GERD, rheumatoid arthritis and daily alcohol use and prior history of smoking came to ER with complaints of nausea and vomiting for the past 1 month and is generalized weakness. Patient was also having decreased u rine output. Also complains of increased abdominal girth. Patient otherwise denies any fever or chills. No complaints of cough or sputum production. No headache or dizziness or lightheadedness. Denies any hematemesis or melena. On admission sodium level found to be [address] of the abdomen pelvis showed heterogenicity in the liver appeared new compared to wall exam and could be related to hepatitis or cirrhosis. There is moderate abdominal ascites which is new compared to old exam. Sigmoid diverticulosis without diverticulitis. There is clearing of the inflammatory changes anterior to the pancreatic head compatible exam. Chest x-ray showed there is some mild linear infiltrate and atelectasis left lung base. No heart failure. EKG showed sinus tachycardia Ultrasound of the abdomen showed ascites. Laboratory data showed WBC 8.3 hemoglobin 12.7 MCV 107.0 and platelets 160 Sodium 106 potassium 4.7 chloride 71 bicarb is 19 and BUN 3 and creatinine 0.59 lactic acid 3.12 calcium 7.7 Total bilirubin level is 6.6 and AST 190 ALT 51 and alk phos 135 Troponin 0.015 and proBNP 711 Amylase 70 lipase 244 Hepatitis panel not detected. Coronavirus PCR not detected On admission patient was tachycardic and hypotensive with blood pressure 93/69 pulse ox 99% on room air. 06/28/2022 Patient is in the MICU. Seems to be confused and not in acute distress. Patient underwent paracentesis today. Otherwise patient remains hypertonic saline and sodium level is improving slowly to 114 today. Patient otherwise denies any complaints of chest pain or shortness of breath. No cough or sputum production. No abdominal pain. Currently on alcohol withdrawal protocol. Laboratory data reviewed. Pulmonary and nephrology is on board. 06/29/2022 Patient is in the MICU. Currently on Lasix drip and also 3 salin. Sodium level improved to 114 today. Advised patient underwent paracentesis with 3 L fluid removal yesterday. Patient remains confused and lethargic and weak.. Continued on alcohol wit hdrawal protocol. Pulmonary and nephrology is on board. 06/30/2022 Patient is in the MICU. Confused but seems to be more awake and oriented today. Currently being current on Lasix drip and also was on 3% saline. Sodium level improved to 124 today. Patient is also on alcohol withdrawal protocol. Currently maintained antibiotics in the form of ceftriaxone for UTI. Laboratory data reviewed. 07/01/2022 Patient remains in the MICU. Awake alert but still confused. Clinically improving. Lasix drip has been discontinued yesterday. Was started on IV push Lasix. Otherwise sodium level improved to 128 today. Denies any nausea vomiting abdominal pain. On dysphagia level 2 diet. Patient is on antibiotics for normal ceftriaxone for urinary tract infection. Sodium 128 potassium 3.2 chloride 93 bicarb is 23 BUN 15 and creatinine 0.89 calcium 8.1 WBC 8.1 hemoglobin 0.5 and platelets 104 Nephrology and pulmonary is on board 07/02/2022 Patient is in the MICU. Lying in the bed comfortably. Awake alert and no acute distress. More awake and oriented today. Slow to respond. Patient remains a lcohol withdrawal protocol. Started on Lasix drip at 10 mg/h today. Still having bilateral lower extremity swelling Continued on sodium bicarbonate tablets. Other laboratory data showed potassium 2.6 and chloride 87 BUN 10 and creatinine 0.69. Patient is being transferred to medical floor today. Current medications reviewed. Objective - Vital Signs Vital signs: Vital Signs Temp 97.8 F 07/02/22 20:00 Pulse 87 07/02/22 20:19 Resp 17 07/02/22 20:00 BP 134/89 07/02/22 20:00 Pulse Ox 95 07/02/22 20:00 FiO2 Intake & Output 07/02/22 07/02/22 07/03/22 06:59 18:59 06:59 Intake Total 100 289.334 Output Total 1500 1150 Balance -1400 -860.666 Intake: Intake, IV Titration 100 89.334 Amount Furosemide 100 mg In 100 89.334 Sodium Chloride 0.9% 90 ml @ 5 MG/HR 5 mls/hr IV .Q20H [facility] Rx#:[id number] Oral 200 Output: Urine 1500 1150 Uretheral ([place]) 450 Other: Voiding Method Indwelling Catheter Indwelling Catheter - Exam PHYSICAL EXAMINATION: Patient is lying in the bed comfortably, no acute distress, awake alert , confused, generalized weakness... HEENT: Normocephalic. Neck is supple. Pupils reactive. Nostrils clear. Oral cavity is moist. Neck reveals no JVD, carotid bruits, or thyromegaly. CHEST EXAMINATION: Trachea is central. Symmetrical expansion. Lung cervantes clear to auscultation and percussion. CARDIAC: Normal S1, S2 with no gallops. No murmurs ABDOMEN: Soft. Bowel sounds present. distended. Nontender. No organomegaly. No abdominal bruits. Extremities: 2+ edema. No clubbing or cyanosis Neurologically awake, alert, oriented x1-2 with well-coordinated movements. No gross focal deficits noted Skin: No rash or skin lesions. Psychiatric: Coperative. Could not be assessed completely l, Musculoskeletal: No joint swelling or deformity. Normal range of motion. - Labs CBC & Chem 7: 07/01/22 05:05 07/02/22 20:06 Labs: Abnormal Lab Results - Last 24 Hours (Table) 07/02/22 Range/Units 10:54 Sodium 125 L (137-145) mmol/L Potassium 2.6 L* (3.5-5.1) mmol/L Chloride 87 L (98-107) mmol/L Glucose 102 H (74-99) mg/dL Calcium 7.6 L (8.4-10.2) mg/dL Assessment and Plan Assessment: Hyponatremia likely hypoosmolar with decreased oral intake. Intractable nausea and vomiting and decreased oral intake Acute alcohol withdrawal symptoms Acute alcoholic hepatitis Ascites E. coli urinary tract infection Liver cirrhosis likely alcohol related Hyperbilirubinemia Alcohol abuse Hypomagnesemia 0.9 Macrocytosis MCV 107.0 due to alcohol abuse DVT prophylax with heparin subcu GI prophylaxis Plan: Lasix drip was restarretd. Sodium level 125 today. Patient was continued on hypertonic 3% saline and monitore sodium level. Symptomatic management for nausea and vomiting. Continue PPI. c/w oral diet and follow-up daily CBC and CMP. Nephrology is on board. Continue to follow closely. Prognosis . Time with Patient: Greater than 30
[2022-07-03] MEDS: ALBUTEROL NEBULIZED 2.5 MG/3 ML INHALATION SCH ×3 (08:08→20:22)
[2022-07-03] MEDS: SODIUM BICARBONATE TAB 650 MG TAB PO SCH ×2 (09:12→21:55)
[2022-07-03] MEDS: THIAMINE 100 MG TAB PO SCH (09:12)
[2022-07-03] MEDS: HEPARIN SODIUM,PORCINE/PF 5,000 UNIT/0.5 ML SYRINGE SQ SCH ×2 (09:12→15:49)
[2022-07-03] MEDS: FOLIC ACID 1 MG TAB PO SCH (09:12)
[2022-07-03] MEDS: RIFAXIMIN 550 MG TABLET PO SCH ×2 (09:12→21:55)
[2022-07-03] MEDS: MIDODRINE 5 MG TAB PO SCH ×3 (09:12→18:28)
[2022-07-03] MEDS: MULTIVITAMINS, THERA 1 EACH TAB PO SCH (09:13)
[2022-07-03 10:51] VITALS: BMI 28.4
[2022-07-03 11:28] LABS: African American GFR (CKD) 99.6 (60.0-200.0); Anion Gap 8.3 mmol/L (10.00-18.00); BUN/Creat Ratio 20.57 Ratio (12.00-20.00); Blood Urea Nitrogen 14.4 mg/dL (9.0-27.0); Calcium 7.8 mg/dL (8.7-10.3); Carbon Dioxide 25.7 mmol/L (20.0-27.5); Potassium 3.9 mmol/L (3.5-5.5)
[2022-07-03 12:15] LABS: HCT 28.4 % (37.2-46.3); HGB 10.4 g/dL (12.0-15.0); MCH 38.7 pg (27.0-32.0); MCHC 36.6 g/dL (32.0-37.0); MCV 105.6 fL (80.0-97.0); Mean Platelet Volume 9.6 fL (9.5-12.2); NRBC Per 100 WBC 0 /100 WBCS (0.0-0.0); Platelet Count 85 X 10*3/uL (140-440); RBC 2.69 X 10*6/uL (4.10-5.20); WBC 7.86 X 10*3/uL (4.50-10.00)
[2022-07-03 12:22] LABS: Basophils # (A) 0.01 X 10*3/uL (0.00-0.10); Basophils % (A) 0.1 %; Eosinophils # (A) 0.04 X 10*3/uL (0.04-0.35); Eosinophils % (A) 0.5 %; Immature Grans, Automated 0.8 %; Lymphocytes # (A) 1.14 X 10*3/uL (0.90-5.00); Lymphocytes % (A) 14.5 %; Monocytes # (A) 1.13 X 10*3/uL (0.20-1.00); Monocytes % (A) 14.4 %; Neutrophils # (A) 5.48 X 10*3/uL (1.80-7.70); Neutrophils % (A) 69.7 %
--- NOTE | 2022-07-03 13:27 | P.PN ---
Subjective Patient is seen for follow-up for severe hyponatremia and volume overload. Patient was maintained on Lasix drip and this was discontinued on 06/30/2022. Urine output has decreased to about 30-40 mL an hour. Subsequently the Lasix drip was restarted. Decreased to 5 mg an hour yesterday. Patient has had good urine output and she has been transferred out of the ICU. No significant complaints today Objective - Vital Signs Vital signs: Vital Signs Temp 98.0 F 07/03/22 08:00 Pulse 92 07/03/22 11:47 Resp 16 07/03/22 11:47 BP 136/84 07/03/22 08:00 Pulse Ox 93 L 07/03/22 08:00 FiO2 Intake & Output 07/02/22 07/03/22 07/03/22 18:59 06:59 18:59 Intake Total 289.334 Output Total 1150 300 Balance -860.666 -300 Weight 80 kg Intake: Intake, IV Titration 89.334 Amount Furosemide 100 mg In 89.334 Sodium Chloride 0.9% 90 ml @ 5 MG/HR 5 mls/hr IV .Q20H [facility] Rx#:[id number] Oral 200 Output: Urine 1150 300 Uretheral ([place]) 450 Other: Voiding Method Indwelling Catheter Indwelling Catheter Indwelling Catheter # Voids 3 - Exam Patient is awake. Mentation slightly improved from yesterday. Examination of the heart S1 and S2 Examination lungs decreased breath sounds at the bases Abdomen is soft nontender Examination of lower extremities shows edema 2+ bilaterally [facility] exam grossly intact - Labs CBC & Chem 7: 07/03/22 07:16 07/03/22 07:16 Labs: Abnormal Lab Results - Last 24 Hours (Table) 07/03/22 07/03/22 Range/Units 07:16 07:16 RBC 2.69 L (4.10-5.20) X 10*6/uL Hgb 10.4 L (12.0-15.0) g/dL Hct 28.4 L (37.2-46.3) % MCV 105.6 H (80.0-97.0) fL MCH 38.7 H (27.0-32.0) pg RDW 15.0 H (11.5-14.5) % Plt Count 85 L (140-440) X 10*3/uL Plt Count Comment DECREASED A Immature Gran # 0.06 H (0.00-0.04) X 10*3/uL Monocytes # 1.13 H (0.20-1.00) X 10*3/uL Sodium 129 L (135-145) mmol/L Chloride 95 L (96-109) mmol/L Anion Gap 8.30 L (10.00-18.00) mmol/L BUN/Creatinine Ratio 20.57 H (12.00-20.00) Ratio Calcium 7.8 L (8.7-10.3) mg/dL Assessment and Plan Assessment: 1. Hyponatremia associated with poor solute intake. Serum sodium was 106 on initial admission and had dropped with normal saline. Status post 3% saline and currently maintained on Lasix drip for volume overload. Serum sodium is slowly improving. Patient remains hypervolemic 2. History of EtOH abuse with concern for alcoholic hepatitis. 3. Benign hypertension with low blood pressures initially currently improved 4. Ascites status post paracentesis with 3 L of fluid removed 5. Volume overload 6. Metabolic acidosis from IV fluids and likely compensatory mechanism for respiratory alkalosis from liver disease Plan: DC Lasix drip in a.m. Repeat labs and continue to monitor serum potassium.
--- NOTE | 2022-07-03 14:11 | P.PN ---
Subjective Progress Note Date: 07/03/22 This is a 71-year-old female, heavy drinker, patient drinks on a daily basis, brought into the hospital with one month history of nausea and vomiting, constipation, and her abdomen has been gradually getting more and more distended.patient is not a great historian but she has been complaining of fatigue, and not feeling well. Her son insisted that she comes into the ER.upon her initial evaluation in the ER, patient was noted to be hyponatremic with a sodium of 105. She was also noted to have heterogeneous liver possible cirrhosis and possible hepatitis. Patient drinks on the average of one bottle of wine a day.CT abdomen and pelvis also showed moderate abdominal ascites which is a new compared to previous exam done in 2019.at any rate considering her profound hyponatremia I was asked to see the patient on consultation. And she was admitted to the ICU. Started initially on 3% saline as per nephrology to get her sodium slowly up to the range of 120/125 Reevaluated today on 06/28/22, patient remains in the ICU, she is feeling better, she is on room air, does not seem to be in any distress, patient is supposed to undergo paracentesis today. Her sodium is correcting nicely and slowly. Patient is now not receiving any IV fluids. And again her sodium seems to be coming up nicely today's sodium is 114, patient was admitted with a sodium of 104 on admission patient denies any shortness of breath no cough no wheezing no nausea no vomiting no abdominal pain no melena no hematemesis remains on the CIWA protocol, and seems to be doing well Reevaluated today on 06/29/22, patient remains in the ICU, her hyponatremia is responding well to treatment slowly patient's sodium today is 117, she has a urine output of 20-30 mL/h, she had 3 L of fluid drained from her peritoneal cavity yesterday by interventional radiology results of which are pending. Patient was noted to have evidence of UTI, and she is now on Rocephin empirically. Her ammonia level was noted to be 45 today, and she was placed on lactulose. Patient remains on the CIWA protocol. Intermittently noted to be confused, but overall she is doing well. And she seems to be quite slow and lethargic not to mention the patient is receiving Ativan for potential withdrawal basic metabolic profile was noted today sodium is 117 her renal profile is normal anion gap is 14 BUN is 8 and creatinine is 0.98 Patient is still in ICU, seen today on 06/30/22, she seems to be intermittently confused, she is on the CIWA protocol for alcohol withdrawal, remains on Lasix and drip at 10 mg per hour. She is an negative balance of 1.7 L in the last 24 hours. Sodium today is up to 124. Patient is hemodynamically stable, and inte rmittent confusion is an issue, and she will remain in the ICU mostly because of her confusion. Remains on antibiotics/Rocephin for UTI. Reevaluated today on 07/01/22, patient remains in the ICU, intermittently confused, but overall she seems to be arousable, follows simple instructions, and she is not requiring much in terms of sedation for her potential alcohol withdrawal. Her last dose of Ativan was last night. Her sodium is up to 128 electrolytes are normal except for low potassium of 3.2 CBC is normal, urine is positive for E. coli., Peritoneal fluid was noted, cultures are pending on the fluid, so far no clear-cut evidence of infection. The patient is seen today 07/02/2022 in follow-up in the intensive care unit. She is currently resting comfortably in bed. Awake and alert in no acute distress. Still somewhat slow to respond. She does admit to drinking 3 glasses of wine daily. She remains in the CIWA protocol. She is continued on a Lasix drip at 10 mg per hour. She remains on antibiotics in the form of ceftriaxone. Continued on sodium bicarbonate tablets. Current sodium 125. Potassium 2.6. Chloride 87. BUN 1915. Creatinine 0.69. Potassium is being replaced. She is maintaining good O2 saturations in the mid to upper 90s on room air. Afebrile. Hemodynamically stable. The patient is seen today 07/03/2022 and a follow-up on the regular medical floor. She is currently resting comfortably in bed. Awake and alert in no acute distress. Maintaining O2 saturations in the 90s on room air. No IV fluids. Off the Lasix drip. Currently in a 3.1 L negative balance. She is a bit jaundice. She remains in the CIWA protocol. Remains on Solu-Cortef. White count 7.8. Hemoglobin 10.4. Platelet count 85,000. Sodium 129. Potassium 3.9. BUN 14. Creatinine 0.7. Urine culture positive for E. coli. Remains on ceftriaxone. Objective - Vital Signs Vital signs: Vital Signs Temp 98.0 F 07/03/22 08:00 Pulse 92 07/03/22 11:47 Resp 16 07/03/22 11:47 BP 136/84 07/03/22 08:00 Pulse Ox 93 L 07/03/22 08:00 FiO2 Intake & Output 07/02/22 07/03/22 07/03/22 18:59 06:59 18:59 Intake Total 289.334 Output Total 1150 300 Balance -860.666 -300 Weight 80 kg Intake: Intake, IV Titration 89.334 Amount Furosemide 100 mg In 89.334 Sodium Chloride 0.9% 90 ml @ 5 MG/HR 5 mls/hr IV .Q20H [facility] Rx#:[id number] Oral 200 Output: Urine 1150 300 Uretheral ([place]) 450 Other: Voiding Method Indwelling Catheter Indwelling Catheter Indwelling Catheter # Voids 3 - Exam GENERAL EXAM: Alert, 71-year-old female, slightly jaundiced, on room air, comfortable in no apparent distress. HEAD: Normocephalic. EYES: Normal reaction of pupils, equal size. NOSE: Clear with pink turbinates. THROAT: No erythema or exudates. NECK: No masses, no JVD. CHEST: No chest wall deformity. LUNGS: Equal air entry with no crackles, wheeze, rhonchi or dullness. CVS: S1 and S2 normal with no audible murmur, regular rhythm. ABDOMEN: Abdominal distention, tenderness, normal bowel sounds, no guarding or rigidity. SPINE: No scoliosis or deformity SKIN: No rashes CENTRAL NERVOUS SYSTEM: No focal deficits, tone is normal in all 4 extremities. EXTREMITIES: There is no peripheral edema. No clubbing, no cyanosis. Peripheral pulses are intact. - Labs CBC & Chem 7: 07/03/22 07:16 07/03/22 07:16 Labs: Abnormal Lab Results - Last 24 Hours (Table) 07/03/22 07/03/22 Range/Units 07:16 07:16 RBC 2.69 L (4.10-5.20) X 10*6/uL Hgb 10.4 L (12.0-15.0) g/dL Hct 28.4 L (37.2-46.3) % MCV 105.6 H (80.0-97.0) fL MCH 38.7 H (27.0-32.0) pg RDW 15.0 H (11.5-14.5) % Plt Count 85 L (140-440) X 10*3/uL Plt Count Comment DECREASED A Immature Gran # 0.06 H (0.00-0.04) X 10*3/uL Monocytes # 1.13 H (0.20-1.00) X 10*3/uL Sodium 129 L (135-145) mmol/L Chloride 95 L (96-109) mmol/L Anion Gap 8.30 L (10.00-18.00) mmol/L BUN/Creatinine Ratio 20.57 H (12.00-20.00) Ratio Calcium 7.8 L (8.7-10.3) mg/dL Assessment and Plan Assessment: Severe hyponatremia secondary to excessive alcohol use, poor salt intake, and excessive fluid intake Alcoholism Suspect liver cirrhosis and ascites Benign essential hypertension Hypomagnesemia Alcoholic hepatitis Acute urinary tract infection secondary to E. coli currently on ceftriaxone Plan: The patient was seen and evaluated Labs and medications reviewed Stable and on room air Home once cleared by medicine We'll continue to follow I have personally seen and examined the patient, performed the documentation and the assessment and plan as written. Number of minutes spent on the visit: 10.
--- NOTE | 2022-07-03 14:25 | P.PN ---
Subjective Progress Note Date: 07/03/22 Principal diagnosis: Alcoholic hepatitis This a pleasant 71-year-old female who presented to the emergency department yesterday with complaints of nausea and vomiting 1 month duration. She has been having progressively distended abdomen, increased weakness, decreased urine output and bowel movements. On admission patient was found to be hyponatremic with a sodium of 105. She was admitted to the ICU for further evaluation. She was also noted to have heterogeneity of the liver possible cirrhosis versus hepatitis. Gastroenterology was consulted for alcoholic hepatitis. Patient admits to drinking one bottle of wine a day, she states she's been drinking daily for 1 year duration due to pain. Prior to that she states that she drinks 1-2 bottles of wine a week. She is also complaining of abdominal discomfort, nausea and vomiting especially after eating. States she's not been eating well at home, mostly drinking water and not pop. Denies any previous EGD, states that she was told in the past that she had an ulcer but she has not had an EGD performed. 06/28/2022: Patient seen and examined is a follow-up in the ICU. She is very shaky and has tremors today. Other than that patient states she feels okay. Nephrology is following and has ordered a paracentesis. Sodium improving. Patient was started on Lasix 40 mg every 12 hours. No acute changes or name. 06/29/2022: Patient followed up in the ICU. Yesterday she underwent paracentesis with 3 L of fluid removed. The patient a little confused and weak today. Total bilirubin 4.8 AST 139 AST 41 alkaline phosphatase 99, ammonia 45. 07/01/2022: Patient is seen and examined as a follow-up in the ICU. She is currently MedSurg however there are no beds available. LFTs continue to improve. On nursing is reporting that she still has a little bit of some underlying confusion however most recent ammonia level less than 9. She's having at least 2-3 bowel movements a day. No abdominal pain, nausea or vomiting. Objective - Vital Signs Vital signs: Vital Signs Temp 98.0 F 07/03/22 08:00 Pulse 90 07/03/22 08:21 Resp 16 07/03/22 08:21 BP 136/84 07/03/22 08:00 Pulse Ox 93 L 07/03/22 08:00 FiO2 Intake & Output 07/02/22 07/03/22 07/03/22 18:59 06:59 18:59 Intake Total 289.334 Output Total 1150 300 Balance -860.666 -300 Intake: Intake, IV Titration 89.334 Amount Furosemide 100 mg In 89.334 Sodium Chloride 0.9% 90 ml @ 5 MG/HR 5 mls/hr IV .Q20H [facility] Rx#:[id number] Oral 200 Output: Urine 1150 300 Uretheral ([place]) 450 Other: Voiding Method Indwelling Catheter Indwelling Catheter # Voids 3 - Exam General appearance: The patient is fatigued, appears in no acute distress. HET: Head is normocephalic and atraumatic. Conjunctiva pink. Sclera anicteric. Neck: Supple without lymphadenopathy. Abdomen: Soft, nontender, nondistended. No guarding or rigidity. Extremities: Normal skin color and turgor. Bilateral lower extremity edema. Skin: No rashes, jaundice. Neurological: No focal deficits. Alert and oriented x3. - Labs CBC & Chem 7: 07/03/22 07:16 07/03/22 07:16 Labs: Abnormal Lab Results - Last 24 Hours (Table) 07/02/22 Range/Units 10:54 Sodium 125 L (137-145) mmol/L Potassium 2.6 L* (3.5-5.1) mmol/L Chloride 87 L (98-107) mmol/L Glucose 102 H (74-99) mg/dL Calcium 7.6 L (8.4-10.2) mg/dL Assessment and Plan (1) Alcoholic hepatitis with ascites Narrative/Plan: 71-year-old admitted with nausea vomiting, weakness and severe hyponatremia. Patient has a history of alcohol intoxication, abuse drinking at least 1 bottle of wine the last one year duration. Patient was noted to have elevated LFTs on admission, CT of the abdomen and pelvis reporting heterogeneity of the liver suggestive of cirrhosis or hepatitis. Patient likely has underlying cirrhosis of the liver related to alcohol abuse. New onset ascites. Patient's abdomen soft at this time, may require paracentesis in the next 1-2 days duration and will get fluid studies at that time if needed. Otherwise discussed with patient importance of alcohol abstinence and need for outpatient follow-up for her underlying liver disease. Nephrology following patient closely. Lasix 40 mg twice a day added. Paracentesis completed with 3 L removed. Fluid studies consistent with underlying liver disease patient with decompensated cirrhosis of the liver.. Current Visit: Yes Status: Acute Code(s): K70.11 - ALCOHOLIC HEPATITIS WITH ASCITES SNOMED Code(s): 4205613925683773 (2) Nausea and vomiting Narrative/Plan: Patient with complaints of nausea and vomiting related to eating. Unclear etiology at this time. May be related to underlying hyponatremia and hypomagnesemia. No plans on EGD at this time. Will continue with proton X 40 mg daily. And reporting oral and pharyngeal phases of the swallow that are within normal limits. Patient did experience some complaints of esophageal pain and a sensation of nausea after eating textured food. Will keep on clear liquid diet and advance to full liquid diet in the morning. Current Visit: Yes Status: Acute Code(s): R11.2 - NAUSEA WITH VOMITING, UNSPECIFIED SNOMED Code(s): 75513220 (3) Hyponatremia Current Visit: Yes Status: Acute Code(s): E87.1 - HYPO-OSMOLALITY AND HYPONATREMIA SNOMED Code(s): 38051803 (4) Hyperammonemia Narrative/Plan: Labs 30 g 3 times a day, titrate to have 3-4 bowel movements daily. Current Visit: Yes Status: Acute Code(s): E72.20 - DISORDER OF UREA CYCLE METABOLISM, UNSPECIFIED SNOMED Code(s): 0609269 Plan: 1. Continue symptomatic and supportive care 2. Avoid hepatotoxic medications 3. Alcohol abstinence 4. Low-sodium diet 5. Repeat ammonia 6. No plans on EGD at this time 7. Lactulose 30 g 3 times a day, titrate to have 2-3 bowel movements daily 8. Continue with recommendations on diuretics from nephrology 9. Recommend outpatient follow-up with gastroenterology for underlying liver disease Thank you for this consultation, we will continue to follow. Dr. Percy Tejada I agree with the dictator's note, documented as a scribe by Bonita Ellsworth.
[2022-07-03] MEDS: HYDROCORTISONE SUCCINATE 100 MG/2 ML VIAL IV SCH (15:48)
[2022-07-03] MEDS: PANTOPRAZOLE 40 MG/10 ML VIAL IVP SCH (15:48)
--- NOTE | 2022-07-03 16:02 | XR ---
EXAMINATION TYPE: XR chest 1V portable DATE OF EXAM: 07/03/2022 COMPARISON: 06/26/2022 HISTORY: Shortness of breath TECHNIQUE: Single frontal view of the chest is obtained. FINDINGS: Left lower lobe infiltrate with small effusion. Tiny right effusion and mild coarsening of the interstitium. Heart size stable. No pneumothorax. Arthropathy of the shoulders with diffuse oste openia. Hypertrophic and degenerative change of the spine. Subtle scoliotic curvature. IMPRESSION: Left lower lobe infiltrate and small effusion. Correlate for atelectasis or pneumonia. M ild central venous congestion in the differential diagnosis.
[2022-07-03] MEDS: NOREPINEPHRINE 8 MG in SODIUM CHLORIDE 0.9% 250 ML IV SCH (21:54)
[2022-07-04] MEDS: HEPARIN SODIUM,PORCINE/PF 5,000 UNIT/0.5 ML SYRINGE SQ SCH ×4 (00:43→23:13)
[2022-07-04] MEDS: FUROSEMIDE 100 MG in SODIUM CHLORIDE 0.9% 90 ML IV SCH ×2 (04:04→14:22)
[2022-07-04] MEDS: RIFAXIMIN 550 MG TABLET PO SCH ×2 (08:06→21:12)
[2022-07-04] MEDS: MIDODRINE 5 MG TAB PO SCH ×3 (08:06→16:42)
[2022-07-04] MEDS: FOLIC ACID 1 MG TAB PO SCH (08:06)
[2022-07-04] MEDS: SODIUM BICARBONATE TAB 650 MG TAB PO SCH (08:06)
[2022-07-04] MEDS: THIAMINE 100 MG TAB PO SCH (08:06)
[2022-07-04] MEDS: HYDROCORTISONE SUCCINATE 100 MG/2 ML VIAL IV SCH (08:06)
[2022-07-04] MEDS: MULTIVITAMINS, THERA 1 EACH TAB PO SCH (08:06)
[2022-07-04] MEDS: PANTOPRAZOLE 40 MG/10 ML VIAL IVP SCH (08:07)
[2022-07-04] MEDS: ALBUTEROL NEBULIZED 2.5 MG/3 ML INHALATION SCH ×3 (08:40→20:57)
[2022-07-04] MEDS: LACTULOSE 20 GM/30 ML CUP PO SCH ×2 (10:29→16:47)
--- NOTE | 2022-07-04 11:06 | P.PN ---
Subjective Progress Note Date: 07/04/22 Principal diagnosis: Alcoholic hepatitis This a pleasant 71-year-old female who presented to the emergency department yesterday with complaints of nausea and vomiting 1 month duration. She has been having progressively distended abdomen, increased weakness, decreased urine output and bowel movements. On admission patient was found to be hyponatremic with a sodium of 105. She was admitted to the ICU for further evaluation. She was also noted to have heterogeneity of the liver possible cirrhosis versus hepatitis. Gastroenterology was consulted for alcoholic hepatitis. Patient admits to drinking one bottle of wine a day, she states she's been drinking daily for 1 year duration due to pain. Prior to that she states that she drinks 1-2 bottles of wine a week. She is also complaining of abdominal discomfort, nausea and vomiting especially after eating. States she's not been eating well at home, mostly drinking water and not pop. Denies any previous EGD, states that she was told in the past that she had an ulcer but she has not had an EGD performed. 06/28/2022: Patient seen and examined is a follow-up in the ICU. She is very shaky and has tremors today. Other than that patient states she feels okay. Nephrology is following and has ordered a paracentesis. Sodium improving. Patient was started on Lasix 40 mg every 12 hours. No acute changes or name. 06/29/2022: Patient followed up in the ICU. Yesterday she underwent paracentesis with 3 L of fluid removed. The patient a little confused and weak today. Total bilirubin 4.8 AST 139 AST 41 alkaline phosphatase 99, ammonia 45. 07/01/2022: Patient is seen and examined as a follow-up in the ICU. She is currently MedSurg however there are no beds available. LFTs continue to improve. On nursing is reporting that she still has a little bit of some underlying confusion however most recent ammonia level less than 9. She's having at least 2-3 bowel movements a day. No abdominal pain, nausea or vomiting. 07/02/2022: Patient had been seen and examined went to medical surgical floor. No acute changes through the night. She denies any abdominal pain nausea or vomiting. Still having some difficulty with swallowing and has been seen by speech pathologist who is recommending dysphasia to ground food. 07/03/2022: Patient seen and examined as a follow-up. Again no acute changes, patient was reevaluated by speech therapy and upgraded to a chopped thin liquid diet. Patient initially seen in the morning and have been more awake and alert, by afternoon she did seem somewhat fatigued and confused. However she is tolerating her diet, no abdominal pain, nausea or vomiting. 07/04/2022: Patient seen and examined as follow-up. This morning she states she doesn't feel that great. Repeat ammonia level at 53. Apparently at some point lactulose was either discontinued or and patient had not received lactulose yesterday however on Xifaxan. Objective - Vital Signs Vital signs: Vital Signs Temp 98.0 F 07/04/22 07:39 Pulse 94 07/04/22 07:39 Resp 17 07/04/22 07:39 BP 121/70 07/04/22 07:39 Pulse Ox 94 L 07/04/22 07:39 FiO2 Intake & Output 07/03/22 07/04/22 07/04/22 18:59 06:59 18:59 Intake Total 250 Output Total 200 900 Balance 50 -900 Weight 80 kg Intake: Oral 250 Output: Urine 200 900 Other: Voiding Method Indwelling Catheter Indwelling Catheter - Exam General appearance: The patient is fatigued, appears in no acute distress. HET: Head is normocephalic and atraumatic. Conjunctiva pink. Sclera anicteric. Neck: Supple without lymphadenopathy. Abdomen: Soft, nontender, nondistended. No guarding or rigidity. Extremities: Normal skin color and turgor. Bilateral lower extremity edema. Skin: No rashes, jaundice. Neurological: No focal deficits. Alert and oriented x2. - Labs CBC & Chem 7: 07/03/22 07:16 07/03/22 07:16 Labs: Abnormal Lab Results - Last 24 Hours (Table) 07/03/22 07/03/22 07/04/22 Range/Units 07:16 07:16 07:51 RBC 2.69 L (4.10-5.20) X 10*6/uL Hgb 10.4 L (12.0-15.0) g/dL Hct 28.4 L (37.2-46.3) % MCV 105.6 H (80.0-97.0) fL MCH 38.7 H (27.0-32.0) pg RDW 15.0 H (11.5-14.5) % Plt Count 85 L (140-440) X 10*3/uL Plt Count Comment DECREASED A Immature Gran # 0.06 H (0.00-0.04) X 10*3/uL Monocytes # 1.13 H (0.20-1.00) X 10*3/uL Sodium 129 L (135-145) mmol/L Chloride 95 L (96-109) mmol/L Anion Gap 8.30 L (10.00-18.00) mmol/L BUN/Creatinine Ratio 20.57 H (12.00-20.00) Ratio Calcium 7.8 L (8.7-10.3) mg/dL Ammonia 53 H (<30) umol/L Assessment and Plan (1) Alcoholic hepatitis with ascites Narrative/Plan: 71-year-old admitted with nausea vomiting, weakness and severe hyponatremia. Patient has a history of alcohol intoxication, abuse drinking at least 1 bottle of wine the last one year duration. Patient was noted to have elevated LFTs on admission, CT of the abdomen and pelvis reporting heterogeneity of the liver suggestive of cirrhosis or hepatitis. Patient likely has underlying cirrhosis of the liver related to alcohol abuse. New onset ascites. Patient's abdomen soft at this time, may require paracentesis in the next 1-2 days duration and will get fluid studies at that time if needed. Otherwise discussed with patient importance of alcohol abstinence and need for outpatient follow-up for her und erlying liver disease. Nephrology following patient closely. Lasix 40 mg twice a day added. Parac entesis completed with 3 L removed. Fluid studies consistent with underlying liver disease patient with decompensated cirrhosis of the liver.. Current Visit: Yes Status: Acute Code(s): K70.11 - ALCOHOLIC HEPATITIS WITH ASCITES SNOMED Code(s): 6262652724342745 (2) Nausea and vomiting Narrative/Plan: Patient with complaints of nausea and vomiting related to eating. Unclear etiology at this time. May be related to underlying hyponatremia and hypo magnesemia. No plans on EGD at this time. Will continue with proton X 40 mg daily. And reporting oral and pharyngeal phases of the swallow that are within normal limits. Patient did experience some complaints of esophageal pain and a sensation of nausea after eating textured food. Will keep on clear liquid diet and advance to full liquid diet in the morning. Current Visit: Yes Status: Acute Code(s): R11.2 - NAUSEA WITH VOMITING, UNSPECIFIED SNOMED Code(s): 37191450 (3) Hyponatremia Current Visit: Yes Status: Acute Code(s): E87.1 - HYPO-OSMOLALITY AND HYPONATREMIA SNOMED Code(s): 49194218 (4) Hyperammonemia Narrative/Plan: Lactulose 30 g 3 times a day, titrate to have 3-4 bowel movements daily hepatic encephalopathy. Xifaxan also order for hepatic encephalopathy Current Visit: Yes Status: Acute Code(s): E72.20 - DISORDER OF UREA CYCLE METABOLISM, UNSPECIFIED SNOMED Code(s): 9550400 Plan: 1. Continue symptomatic and supportive care 2. Avoid hepatotoxic medications 3. Alcohol abstinence 4. Low-sodium diet 5. Repeat ammonia 6. No plans on EGD at this time 7. Lactulose 30 g 3 times a day, titrate to have 2-3 bowel movements daily. Continue Xifaxan 8. Continue with recommendations on diuretics from nephrology 9. Recommend outpatient follow-up with gastroenterology for underlying liver disease Thank you for this consultation, we will continue to follow. Dr. Percy Tejada I agree with the dictator's note, documented as a scribe by Bonita Ellsworth.
[2022-07-04 11:23] LABS: Basophils # (A) 0.01 X 10*3/uL (0.00-0.10); Basophils % (A) 0.1 %; Eosinophils # (A) 0.03 X 10*3/uL (0.04-0.35); Eosinophils % (A) 0.3 %; HCT 28.2 % (37.2-46.3); HGB 10.4 g/dL (12.0-15.0); Immature Grans, Automated 0.8 %; Lymphocytes # (A) 1.68 X 10*3/uL (0.90-5.00); Lymphocytes % (A) 16.8 %; MCH 37.8 pg (27.0-32.0); MCHC 36.9 g/dL (32.0-37.0); MCV 102.5 fL (80.0-97.0); Mean Platelet Volume 9.5 fL (9.5-12.2); NRBC Per 100 WBC 0.2 /100 WBCS (0.0-0.0); Neutrophils # (A) 6.78 X 10*3/uL (1.80-7.70); Platelet Count 90 X 10*3/uL (140-440); RBC 2.75 X 10*6/uL (4.10-5.20); RDW 15.3 % (11.5-14.5); WBC 9.98 X 10*3/uL (4.50-10.00)
[2022-07-04 11:25] LABS: Target Cells 2+
[2022-07-04 11:40] LABS: African American GFR (CKD) 101.4 (60.0-200.0); Albumin 2.7 g/dL (3.8-4.9); Albumin/Globulin Ratio 1.05 (1.60-3.17); Anion Gap 6.4 mmol/L (10.00-18.00); BUN/Creat Ratio 20.48 Ratio (12.00-20.00); Blood Urea Nitrogen 13.6 mg/dL (9.0-27.0); Carbon Dioxide 28.9 mmol/L (20.0-27.5); Globulin 2.6 g/dL (1.6-3.3); Non-African American GFR(CKD) 87.5 (60.0-200.0); Potassium 3.5 mmol/L (3.5-5.5); Total Bilirubin 3.7 mg/dL (0.30-1.20); Total Protein 5.4 g/dL (6.2-8.2)
--- NOTE | 2022-07-04 13:16 | P.PN ---
Subjective Progress Note Date: 07/04/22 This is a 71-year-old female, heavy drinker, patient drinks on a daily basis, brought into the hospital with one month history of nausea and vomiting, constipation, and her abdomen has been gradually getting more and more distended.patient is not a great historian but she has been complaining of fatigue, and not feeling well. Her son insisted that she comes into the ER.upon her initial evaluation in the ER, patient was noted to be hyponatremic with a sodium of 105. She was also noted to have heterogeneous liver possible cirrhosis and possible hepatitis. Patient drinks on the average of one bottle of wine a day.CT abdomen and pelvis also showed moderate abdominal ascites which is a new compared to previous exam done in 2019.at any rate considering her profound hyponatremia I was asked to see the patient on consultation. And she was admitted to the ICU. Started initially on 3% saline as per nephrology to get her sodium slowly up to the range of 120/125 Reevaluated today on 06/28/22, patient remains in the ICU, she is feeling better, she is on room air, does not seem to be in any distress, patient is supposed to undergo paracentesis today. Her sodium is correcting nicely and slowly. Patient is now not receiving any IV fluids. And again her sodium seems to be coming up nicely today's sodium is 114, patient was admitted with a sodium of 104 on admission patient denies any shortness of breath no cough no wheezing no nausea no vomiting no abdominal pain no melena no hematemesis remains on the CIWA protocol, and seems to be doing well Reevaluated today on 06/29/22, patient remains in the ICU, her hyponatremia is responding well to treatment slowly patient's sodium today is 117, she has a urine output of 20-30 mL/h, she had 3 L of fluid drained from her peritoneal cavity yesterday by interventional radiology results of which are pending. Patient was noted to have evidence of UTI, and she is now on Rocephin empirically. Her ammonia level was noted to be 45 today, and she was placed on lactulose. Patient remains on the CIWA protocol. Intermittently noted to be confused, but overall she is doing well. And she seems to be quite slow and lethargic not to mention the patient is receiving Ativan for potential withdrawal basic metabolic profile was noted today sodium is 117 her renal profile is normal anion gap is 14 BUN is 8 and creatinine is 0.98 Patient is still in ICU, seen today on 06/30/22, she seems to be intermittently confused, she is on the CIWA protocol for alcohol withdrawal, remains on Lasix and drip at 10 mg per hour. She is an negative balance of 1.7 L in the last 24 hours. Sodium today is up to 124. Patient is hemodynamically stable, and inte rmittent confusion is an issue, and she will remain in the ICU mostly because of her confusion. Remains on antibiotics/Rocephin for UTI. Reevaluated today on 07/01/22, patient remains in the ICU, intermittently confused, but overall she seems to be arousable, follows simple instructions, and she is not requiring much in terms of sedation for her potential alcohol withdrawal. Her last dose of Ativan was last night. Her sodium is up to 128 electrolytes are normal except for low potassium of 3.2 CBC is normal, urine is positive for E. coli., Peritoneal fluid was noted, cultures are pending on the fluid, so far no clear-cut evidence of infection. The patient is seen today 07/02/2022 in follow-up in the intensive care unit. She is currently resting comfortably in bed. Awake and alert in no acute distress. Still somewhat slow to respond. She does admit to drinking 3 glasses of wine daily. She remains in the CIWA protocol. She is continued on a Lasix drip at 10 mg per hour. She remains on antibiotics in the form of ceftriaxone. Continued on sodium bicarbonate tablets. Current sodium 125. Potassium 2.6. Chloride 87. BUN 1915. Creatinine 0.69. Potassium is being replaced. She is maintaining good O2 saturations in the mid to upper 90s on room air. Afebrile. Hemodynamically stable. The patient is seen today 07/03/2022 and a follow-up on the regular medical floor. She is currently resting comfortably in bed. Awake and alert in no acute distress. Maintaining O2 saturations in the 90s on room air. No IV fluids. Off the Lasix drip. Currently in a 3.1 L negative balance. She is a bit jaundice. She remains in the CIWA protocol. Remains on Solu-Cortef. White count 7.8. Hemoglobin 10.4. Platelet count 85,000. Sodium 129. Potassium 3.9. BUN 14. Creatinine 0.7. Urine culture positive for E. coli. Remains on ceftriaxone. The patient is seen today 07/04/2022 in follow-up on the regular medical floor. Awake and alert in no acute distress. Resting comfortably in bed. Maintaining O2 saturations in the 90s on room air. Working with physical therapy. Chest x- ray reveals a left lower lobe small effusions/atelectasis. Urine culture had been positive for E. coli. White count 9.9. Hemoglobin 10.4. Platelets 90,000. Sodium 127. Potassium 3.5. BUN 13. Creatinine 0.7. AST 141. ALT 67. She remains on ceftriaxone. Continued on a Lasix drip at 10 mg per hour. Heparin for DVT prophylaxis. Remains in the CIWA protocol. Remains in a neg ative balance. Objective - Vital Signs Vital signs: Vital Signs Temp 98.0 F 07/04/22 07:39 Pulse 80 07/04/22 12:43 Resp 17 07/04/22 07:39 BP 121/70 07/04/22 07:39 Pulse Ox 94 L 07/04/22 07:39 FiO2 Intake & Output 07/03/22 07/04/22 07/04/22 18:59 06:59 18:59 Intake Total 250 Output Total 200 900 Balance 50 -900 Weight 80 kg Intake: Oral 250 Output: Urine 200 900 Other: Voiding Method Indwelling Catheter Indwelling Catheter Indwelling Catheter - Exam GENERAL EXAM: Alert, 71-year-old female, slightly jaundiced, on room air, comfortable in no apparent distress. HEAD: Normocephalic. EYES: Normal reaction of pupils, equal size. NOSE: Clear with pink turbinates. THROAT: No erythema or exudates. NECK: No masses, no JVD. CHEST: No chest wall deformity. LUNGS: Equal air entry with no crackles, wheeze, rhonchi or dullness. CVS: S1 and S2 normal with no audible murmur, regular rhythm. ABDOMEN: Abdominal distention, tenderness, normal bowel sounds, no guarding or rigidity. SPINE: No scoliosis or deformity SKIN: No rashes CENTRAL NERVOUS SYSTEM: No focal deficits, tone is normal in all 4 extremities. EXTREMITIES: There is no peripheral edema. No clubbing, no cyanosis. Peripheral pulses are intact. - Labs CBC & Chem 7: 07/04/22 07:51 07/04/22 07:51 Labs: Abnormal Lab Results - Last 24 Hours (Table) 07/04/22 07/04/22 07/04/22 Range/Units 07:51 07:51 07:51 RBC 2.75 L (4.10-5.20) X 10*6/uL Hgb 10.4 L (12.0-15.0) g/dL Hct 28.2 L (37.2-46.3) % MCV 102.5 H (80.0-97.0) fL MCH 37.8 H (27.0-32.0) pg RDW 15.3 H (11.5-14.5) % Plt Count 90 L (140-440) X 10*3/uL Plt Count Comment DECREASED A Absolute Nucleated RBC 0.02 H (0.00-0.00) X 10*3/uL Immature Gran # 0.08 H (0.00-0.04) X 10*3/uL Monocytes # 1.40 H (0.20-1.00) X 10*3/uL Eosinophils # 0.03 L (0.04-0.35) X 10*3/uL NRBC/100 WBC Diff 0.2 H (0.0-0.0) /100 WBCS Sodium 127 L (135-145) mmol/L Chloride 91 L (96-109) mmol/L Carbon Dioxide 28.9 H (20.0-27.5) mmol/L Anion Gap 6.40 L (10.00-18.00) mmol/L BUN/Creatinine Ratio 20.48 H (12.00-20.00) Ratio Calcium 8.0 L (8.7-10.3) mg/dL Total Bilirubin 3.70 H (0.30-1.20) mg/dL AST 141 H (13-35) U/L ALT 67 H (8-44) U/L Ammonia 53 H (<30) umol/L Total Protein 5.4 L (6.2-8.2) g/dL Albumin 2.7 L (3.8-4.9) g/dL Albumin/Globulin Ratio 1.05 L (1.60-3.17) g/dL Assessment and Plan Assessment: Severe hyponatremia secondary to excessive alcohol use, poor salt intake, and excessive fluid intake Alcoholism Suspect liver cirrhosis and ascites Benign essential hypertension Hypomagnesemia Alcoholic hepatitis Acute urinary tract infection secondary to E. coli currently on ceftriaxone Plan: The patient was seen and evaluated Labs and medications reviewed Stable and on room air Home once cleared by medicine Will most likely need subacute rehabilitation I have personally seen and examined the patient, performed the documentation and the assessment and plan as written. Number of minutes spent on the visit: 10.
--- NOTE | 2022-07-04 16:20 | P.PN ---
Subjective Progress Note Date: 07/04/22 This is a 71-year-old female who was recently brought to the emergency room with nausea and vomiting and generalized weakness and having decreased urine output and increase in abdominal distention. Patient does have past medical history of rheumatoid arthritis and daily alcohol use and CT of the abdomen showed a heterogenicity of the liver which appears new and could be related to hepatitis or cirrhosis with a moderate abdominal ascites noted and sigmoid diverticulosis. Multiple medical consultations including pulmonary, GI, nephrology following and patient was maintained in the ICU for quite some time on hypertonic solution. Patient continues on Lasix drip along with antibiotics. Patient con tinues to be extremely lethargic and will continue with lactulose 20 mg twice a day. Patient was started on antibiotics for UTI. Multiple electrolyte abnormalities as well and sodium is 127 today. Potassium is 3.5, current creatinine is 0.7 and total bili is 3.7. Recommend repeat labs. Review of systems: Unable to obtain as patient is lethargic and confused Active Medications Albuterol Sulfate (Albuterol Nebulized 2.5 Mg/3 Ml) 2.5 mg INHALATION RT-TID [facility] Last Admin: 07/04/22 12:32 Dose: 2.5 mg Folic Acid (Folic Acid 1 Mg Tab) 1 mg PO DAILY [facility] Last Admin: 07/04/22 08:06 Dose: 1 mg Heparin Sodium (Porcine) (Heparin Sodium,Porcine/Pf 5,000 Unit/0.5 Ml Syringe) 5,000 unit SQ Q8HR [facility] Last Admin: 07/04/22 08:06 Dose: 5,000 unit Furosemide 100 mg/ Sodium (Chloride) 100 mls @ 5 mls/hr IV .Q20H [facility] Last Admin: 07/04/22 14:22 Dose: 10 mg/hr, 10 mls/hr Ceftriaxone Sodium 1 gm/ (Sodium Chloride) 50 mls @ 100 mls/hr IVPB Q24H [facility]; Protocol Last Admin: 07/03/22 15:49 Dose: 100 mls/hr Lactulose (Lactulose 20 Gm/30 Ml Cup) 30 gm PO TID [facility] Last Admin: 07/04/22 10:29 Dose: 30 gm Lorazepam (Lorazepam 1 Mg/0.5 Ml Vial) 1 mg IV Q1HR PRN PRN Reason: CIWA 10 to 15 Last Admin: 06/30/22 23:41 Dose: 1 mg Lorazepam (Lorazepam 1 Mg/0.5 Ml Vial) 1 mg IV Q2HR PRN PRN Reason: CIWA 8 or 9 Last Admin: 06/30/22 05:16 Dose: 1 mg Lorazepam (Lorazepam 1 Mg/0.5 Ml Vial) 2 mg IV Q10M PRN PRN Reason: CIWA 16 or higher Stop: 07/07/22 18:12 Last Admin: 06/28/22 17:24 Dose: 2 mg Midodrine (Midodrine 5 Mg Tab) 10 mg PO AC-TID [facility] Last Admin: 07/04/22 12:46 Dose: 10 mg Miscellaneous Information (Magnesium Replacement Protocol 1 Each Misc) 1 each MISCELLANE DAILY PRN; Protocol PRN Reason: Per Protocol Miscellaneous Information (Potassium Replacement Protocol 1 Each Misc) 1 each MISCELLANE DAILY PRN; Protocol PRN Reason: Per Protocol Morphine Sulfate (Morphine Sulfate 4 Mg/Ml Syringe) 4 mg IV Q2HR PRN PRN Reason: Pain Scale 8 to 10 Last Admin: 06/27/22 20:08 Dose: 4 mg Multivitamins (Multivitamins, Thera 1 Each Tab) 1 each PO DAILY [facility] Last Admin: 07/04/22 08:06 Dose: 1 each Naloxone HCl (Naloxone 0.4 Mg/Ml 1 Ml Vial) 0.2 mg IV Q2M PRN PRN Reason: Opioid Reversal Ondansetron HCl (Ondansetron 4 Mg/2 Ml Vial) 4 mg IVP Q6HR PRN PRN Reason: Nausea And Vomiting Last Admin: 06/27/22 08:12 Dose: 4 mg Pantoprazole Sodium (Pantoprazole 40 Mg/10 Ml Vial) 40 mg IVP DAILY [facility] Last Admin: 07/04/22 08:07 Dose: 40 mg Rifaximin (Rifaximin 550 Mg Tablet) 550 mg PO BID [facility]; Protocol Stop: 07/29/22 21:01 Last Admin: 07/04/22 08:06 Dose: 550 mg Sodium Bicarbonate (Sodium Bicarbonate Tab 650 Mg Tab) 650 mg PO BID [facility] Last Admin: 07/04/22 08:06 Dose: 650 mg Thiamine HCl (Thiamine 100 Mg Tab) 100 mg PO DAILY [facility] Last Admin: 07/04/22 08:06 Dose: 100 mg PHYSICAL EXAMINATION: GENERAL: The patient is asleep and lethargic although somewhat arousable, Well developed, well nourished. HEENT: Pupils are round and equally reacting to light. EOMI. scleral icterus. No conjunctival pallor. Normocephalic, atraumatic. No pharyngeal erythema. No thyromegaly. CARDIOVASCULAR: S1 and S2 muffled PULMONARY: diminished breath sounds bilaterally with no wheezing or rhonchi noted. ABDOMEN: soft. Nontender on exam. obese. non-distended, normoactive bowel sounds. No palpable organomegaly. MUSCULOSKELETAL: No joint swelling or deformity. EXTREMITIES: No cyanosis, clubbing, or pedal edema. NEUROLOGICAL: Gross neurological examination did not reveal any focal deficits. Diffuse weakness SKIN: No rashes. Assessment: Hyponatremia likely hypoosmolar with decreased oral intake. Intractable nausea and vomiting and decreased oral intake Acute alcohol withdrawal symptoms Acute alcoholic hepatitis Ascites E. coli urinary tract infection Liver cirrhosis likely alcohol related Hyperbilirubinemia Alcohol abuse Hypomagnesemia 0.9 Macrocytosis MCV 107.0 due to alcohol abuse GI prophylaxis DVT prophylaxis Full code Plan: Recommend to continue with current medications and management with GI and nephrology following closely. Patient continues on antibiotics for acute urinary tract infection. Will add lactulose and recommend repeat labs. Patient is maintained on Lasix drip with slight improvement in sodium at currently 127. Ammonia is 53 today and will repeat labs. Patient is lethargic and arousable but fatigues and falls asleep very quickly. Per nursing staff patient was reported to have an episode of epistaxis last night and will monitor labs closely. Hemoglobin today is unchanged at 10.4. Recommend to replace electrolytes per protocol and close monitoring. Due to multiple complex medical issues, prognosis is guarded. PT/OT to evaluate the patient. Case management following for possible ECF once stabilized and discharged. The impression and plan of care has been dictated by Bee Pichardo nurse practitioner as directed. Dr. Orville MD I have performed a history and examination and MDM of this patient, discussed the same with the dictator, and agree with the dictator's assessment and plan as written ,documented as a scribe. Based on total visit time, I have performed more than 50% of the visit. Any additional findings or plans will be noted. Objective - Vital Signs Vital signs: Vital Signs Temp 97.5 F L 07/04/22 14:00 Pulse 85 07/04/22 14:00 Resp 17 07/04/22 14:00 BP 126/64 07/04/22 14:00 Pulse Ox 95 07/04/22 14:00 FiO2 Intake & Output 07/03/22 07/04/22 07/04/22 18:59 06:59 18:59 Intake Total 250 100 Output Total 200 900 Balance 50 -900 100 Weight 80 kg Intake: Intake, IV Titration 100 Amount Furosemide 100 mg In 100 Sodium Chloride 0.9% 90 ml @ 5 MG/HR 5 mls/hr IV .Q20H [facility] Rx#:[id number] Oral 250 Output: Urine 200 900 Other: Voiding Method Indwelling Catheter Indwelling Catheter Indwelling Catheter - Labs CBC & Chem 7: 07/04/22 07:51 07/04/22 07:51 Labs: Abnormal Lab Results - Last 24 Hours (Table) 07/04/22 07/04/22 07/04/22 Range/Units 07:51 07:51 07:51 RBC 2.75 L (4.10-5.20) X 10*6/uL Hgb 10.4 L (12.0-15.0) g/dL Hct 28.2 L (37.2-46.3) % MCV 102.5 H (80.0-97.0) fL MCH 37.8 H (27.0-32.0) pg RDW 15.3 H (11.5-14.5) % Plt Count 90 L (140-440) X 10*3/uL Plt Count Comment DECREASED A Absolute Nucleated RBC 0.02 H (0.00-0.00) X 10*3/uL Immature Gran # 0.08 H (0.00-0.04) X 10*3/uL Monocytes # 1.40 H (0.20-1.00) X 10*3/uL Eosinophils # 0.03 L (0.04-0.35) X 10*3/uL NRBC/100 WBC Diff 0.2 H (0.0-0.0) /100 WBCS Sodium 127 L (135-145) mmol/L Chloride 91 L (96-109) mmol/L Carbon Dioxide 28.9 H (20.0-27.5) mmol/L Anion Gap 6.40 L (10.00-18.00) mmol/L BUN/Creatinine Ratio 20.48 H (12.00-20.00) Ratio Calcium 8.0 L (8.7-10.3) mg/dL Total Bilirubin 3.70 H (0.30-1.20) mg/dL AST 141 H (13-35) U/L ALT 67 H (8-44) U/L Ammonia 53 H (<30) umol/L Total Protein 5.4 L (6.2-8.2) g/dL Albumin 2.7 L (3.8-4.9) g/dL Albumin/Globulin Ratio 1.05 L (1.60-3.17) g/dL
--- NOTE | 2022-07-04 17:03 | P.PN ---
Subjective Patient is seen for follow-up for severe hyponatremia and volume overload. Patient was maintained on Lasix drip and this was discontinued on 06/30/2022. Urine output has decreased to about 30 mL an hour. Subsequently the Lasix drip was restarted. Decreased to 5 mg/hr 24 hour urine output as 1100 mL No significant complaints today Objective - Vital Signs Vital signs: Vital Signs Temp 97.5 F L 07/04/22 14:00 Pulse 85 07/04/22 14:00 Resp 17 07/04/22 14:00 BP 126/64 07/04/22 14:00 Pulse Ox 95 07/04/22 14:00 FiO2 Intake & Output 07/03/22 07/04/22 07/04/22 18:59 06:59 18:59 Intake Total 250 100 Output Total 200 900 Balance 50 -900 100 Weight 80 kg Intake: Intake, IV Titration 100 Amount Furosemide 100 mg In 100 Sodium Chloride 0.9% 90 ml @ 5 MG/HR 5 mls/hr IV .Q20H [facility] Rx#:[id number] Oral 250 Output: Urine 200 900 Other: Voiding Method Indwelling Catheter Indwelling Catheter Indwelling Catheter - Exam Patient is awake. 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 intact - Labs CBC & Chem 7: 07/04/22 07:51 07/04/22 07:51 Labs: Abnormal Lab Results - Last 24 Hours (Table) 07/04/22 07/04/22 07/04/22 Range/Units 07:51 07:51 07:51 RBC 2.75 L (4.10-5.20) X 10*6/uL Hgb 10.4 L (12.0-15.0) g/dL Hct 28.2 L (37.2-46.3) % MCV 102.5 H (80.0-97.0) fL MCH 37.8 H (27.0-32.0) pg RDW 15.3 H (11.5-14.5) % Plt Count 90 L (140-440) X 10*3/uL Plt Count Comment DECREASED A Absolute Nucleated RBC 0.02 H (0.00-0.00) X 10*3/uL Immature Gran # 0.08 H (0.00-0.04) X 10*3/uL Monocytes # 1.40 H (0.20-1.00) X 10*3/uL Eosinophils # 0.03 L (0.04-0.35) X 10*3/uL NRBC/100 WBC Diff 0.2 H (0.0-0.0) /100 WBCS Sodium 127 L (135-145) mmol/L Chloride 91 L (96-109) mmol/L Carbon Dioxide 28.9 H (20.0-27.5) mmol/L Anion Gap 6.40 L (10.00-18.00) mmol/L BUN/Creatinine Ratio 20.48 H (12.00-20.00) Ratio Calcium 8.0 L (8.7-10.3) mg/dL Total Bilirubin 3.70 H (0.30-1.20) mg/dL AST 141 H (13-35) U/L ALT 67 H (8-44) U/L Ammonia 53 H (<30) umol/L Total Protein 5.4 L (6.2-8.2) g/dL Albumin 2.7 L (3.8-4.9) g/dL Albumin/Globulin Ratio 1.05 L (1.60-3.17) g/dL Assessment and Plan Assessment: 1. Hyponatremia associated with poor solute intake. Serum sodium was 106 on initial admission and had dropped with normal saline. Status post 3% saline and currently maintained on Lasix drip for volume overload. Serum sodium is slowly improving. Patient remains hypervolemic 2. History of EtOH abuse with concern for alcoholic hepatitis. 3. Benign hypertension with low blood pressures initially currently improved 4. Ascites status post paracentesis with 3 L of fluid removed 5. Volume overload 6. Metabolic acidosis maintained on sodium bicarb Plan: DC Lasix and switched to IV push Lasix 50 mg by mouth 8 hours Decrease sodium bicarb Repeat sodium in a.m.
[2022-07-04] MEDS: FUROSEMIDE 10 MG/ML 10 ML VIAL IV SCH (17:49)
--- NOTE | 2022-07-04 19:11 | PN ---
PROGRESS NOTE This 71-year-old woman was admitted with significant hyponatremia and weakness. She is being closely monitored. Patient had no change in mental status. No chest pain. No palpitation. PHYSICAL EXAMINATION: VITAL SIGNS: Pulse is 92, blood pressure 105/62, respirations 17. CHEST: Clear to auscultation. CARDIOVASCULAR: S1, S2. ABDOMEN: Soft. NERVOUS SYSTEM: Diffusely weak. LABS: Sodium 129, potassium 3.9. ASSESSMENT: 1. Hyponatremia, possibly hypo-osmolar and diminished p.o. intake. 2. Alcohol withdrawal. 3. Alcoholic hepatitis. 4. Ascites. 5. Liver cirrhosis. 6. Multiple medical issues. RECOMMENDATIONS AND DISCUSSION: This 71-year-old woman presents with multiple complex medical issues. We will monitor the patient closely. We will monitor lytes closely. Closely follow with Pulmonary and Nephrology. The chest x-ray done on 06/26, which was reviewed previously showed some mild infiltrate. We will repeat the chest x-ray and evaluate the possibility of ECF rehab.. ELISABET / MT: [id number] /
[2022-07-04] MEDS ORDERED: LACTULOSE 20 GM/30 ML CUP PO SCH (21:00)
[2022-07-05] MEDS: FUROSEMIDE 10 MG/ML 10 ML VIAL IV SCH ×3 (00:52→15:24)
[2022-07-05] MEDS: ALBUTEROL NEBULIZED 2.5 MG/3 ML INHALATION SCH ×2 (08:58→11:50)
[2022-07-05] MEDS: LACTULOSE 20 GM/30 ML CUP PO SCH ×3 (09:01→21:40)
[2022-07-05] MEDS: MIDODRINE 5 MG TAB PO SCH ×3 (09:02→16:41)
[2022-07-05] MEDS: HEPARIN SODIUM,PORCINE/PF 5,000 UNIT/0.5 ML SYRINGE SQ SCH ×2 (09:02→15:24)
[2022-07-05] MEDS: MULTIVITAMINS, THERA 1 EACH TAB PO SCH (09:02)
[2022-07-05] MEDS: RIFAXIMIN 550 MG TABLET PO SCH ×2 (09:02→21:41)
[2022-07-05] MEDS: THIAMINE 100 MG TAB PO SCH (09:03)
[2022-07-05] MEDS: PANTOPRAZOLE 40 MG/10 ML VIAL IVP SCH (09:03)
[2022-07-05] MEDS: FOLIC ACID 1 MG TAB PO SCH (09:03)
[2022-07-05 09:19] LABS: INR 1.62 (0.90-1.11); Prothrombin Time 17.4 sec (9.9-11.9)
[2022-07-05 09:24] LABS: HCT 28.9 % (37.2-46.3); HGB 10.5 g/dL (12.0-15.0); MCH 38.2 pg (27.0-32.0); MCHC 36.3 g/dL (32.0-37.0); MCV 105.1 fL (80.0-97.0); Mean Platelet Volume 9.4 fL (9.5-12.2); NRBC Per 100 WBC 0.3 /100 WBCS (0.0-0.0); Platelet Count 105 X 10*3/uL (140-440); RBC 2.75 X 10*6/uL (4.10-5.20); WBC 9.53 X 10*3/uL (4.50-10.00)
[2022-07-05 09:35] LABS: African American GFR (CKD) >90 (>60 ml/min/1.73 sqM); Anion Gap 7 mmol/L; Blood Urea Nitrogen 15 mg/dL (7-17); Calcium 7.5 mg/dL (8.4-10.2); Carbon Dioxide 29 mmol/L (22-30); Chloride 88 mmol/L (98-107); Glucose 78 mg/dL (74-99); Non-African American GFR(CKD) >90 (>60 ml/min/1.73 sqM); Sodium 124 mmol/L (137-145)
[2022-07-05] MEDS: POTASSIUM CHLORIDE ER 20 MEQ TAB.ER PO SCH ×2 (11:21→13:19)
[2022-07-05 11:28] LABS: Glucose,Whole Blood 91 mg/dL (70-110)
[2022-07-05] MEDS ORDERED: TOLVAPTAN 15 MG 1/2 TABLET PO ONE (11:56)
--- NOTE | 2022-07-05 11:56 | P.PN ---
Subjective Patient is seen for follow-up for severe hyponatremia and volume overload. Patient was maintained on Lasix drip and this was discontinued on 06/30/2022. Urine output has decreased to about 30 mL an hour. Subsequently the Lasix drip was restarted and then subsequently discontinued again yesterday. Serum sodium has dropped to 124 today. 24 hour urine output at 1100 ML. Objective - Vital Signs Vital signs: Vital Signs Temp 98.3 F 07/05/22 07:22 Pulse 88 07/05/22 07:22 Resp 17 07/05/22 07:22 BP 124/73 07/05/22 07:22 Pulse Ox 91 L 07/05/22 07:22 FiO2 Intake & Output 07/04/22 07/05/22 07/05/22 18:59 06:59 18:59 Intake Total 100 100 Balance 100 100 Intake: Intake, IV Titration 100 Amount Furosemide 100 mg In 100 Sodium Chloride 0.9% 90 ml @ 5 MG/HR 5 mls/hr IV .Q20H [facility] Rx#:[id number] Oral 100 Other: Voiding Method Indwelling Catheter Indwelling Catheter Indwelling Catheter - Exam Patient is awake. 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 grossly intact - Labs CBC & Chem 7: 07/05/22 06:46 07/05/22 06:46 Labs: Abnormal Lab Results - Last 24 Hours (Table) 07/05/22 07/05/22 07/05/22 Range/Units 06:46 06:46 06:46 RBC 2.75 L (4.10-5.20) X 10*6/uL Hgb 10.5 L (12.0-15.0) g/dL Hct 28.9 L (37.2-46.3) % MCV 105.1 H (80.0-97.0) fL MCH 38.2 H (27.0-32.0) pg RDW 15.0 H (11.5-14.5) % Plt Count 105 L (140-440) X 10*3/uL MPV 9.4 L (9.5-12.2) fL Absolute Nucleated RBC 0.03 H (0.00-0.00) X 10*3/uL NRBC/100 WBC Diff 0.3 H (0.0-0.0) /100 WBCS PT 17.4 H (9.9-11.9) sec INR 1.62 H (0.90-1.11) Sodium (137-145) mmol/L Potassium (3.5-5.1) mmol/L Chloride (98-107) mmol/L Calcium (8.4-10.2) mg/dL Ammonia 33 H (<30) umol/L 07/05/22 Range/Units 06:46 RBC (4.10-5.20) X 10*6/uL Hgb (12.0-15.0) g/dL Hct (37.2-46.3) % MCV (80.0-97.0) fL MCH (27.0-32.0) pg RDW (11.5-14.5) % Plt Count (140-440) X 10*3/uL MPV (9.5-12.2) fL Absolute Nucleated RBC (0.00-0.00) X 10*3/uL NRBC/100 WBC Diff (0.0-0.0) /100 WBCS PT (9.9-11.9) sec INR (0.90-1.11) Sodium 124 L (137-145) mmol/L Potassium 3.0 L (3.5-5.1) mmol/L Chloride 88 L (98-107) mmol/L Calcium 7.5 L (8.4-10.2) mg/dL Ammonia (<30) umol/L Assessment and Plan Assessment: 1. Hyponatremia associated with poor solute intake and hypervolemia. Serum sodium was 106 on initial admission and had dropped with normal saline. Status post 3% saline and Lasix drip for volume overload. Serum sodium is slowly improving. Patient remains hypervolemic 2. History of EtOH abuse with concern for alcoholic hepatitis. 3. Benign hypertension with low blood pressures initially currently improved 4. Ascites status post paracentesis with 3 L of fluid removed 5. Volume overload 6. Metabolic acidosis status post sodium bicarb Plan: Samsca by mouth 1 Replace potassium Repeat labs in a.m. Continue with current dose of IV Lasix
--- NOTE | 2022-07-05 11:59 | P.PN ---
Subjective Progress Note Date: 07/05/22 Principal diagnosis: Alcoholic hepatitis This a pleasant 71-year-old female who presented to the emergency department yesterday with complaints of nausea and vomiting 1 month duration. She has been having progressively distended abdomen, increased weakness, decreased urine output and bowel movements. On admission patient was found to be hyponatremic with a sodium of 105. She was admitted to the ICU for further evaluation. She was also noted to have heterogeneity of the liver possible cirrhosis versus hepatitis. Gastroenterology was consulted for alcoholic hepatitis. Patient admits to drinking one bottle of wine a day, she states she's been drinking daily for 1 year duration due to pain. Prior to that she states that she drinks 1-2 bottles of wine a week. She is also complaining of abdominal discomfort, nausea and vomiting especially after eating. States she's not been eating well at home, mostly drinking water and not pop. Denies any previous EGD, states that she was told in the past that she had an ulcer but she has not had an EGD performed. 06/28/2022: Patient seen and examined is a follow-up in the ICU. She is very shaky and has tremors today. Other than that patient states she feels okay. Nephrology is following and has ordered a paracentesis. Sodium improving. Patient was started on Lasix 40 mg every 12 hours. No acute changes or name. 06/29/2022: Patient followed up in the ICU. Yesterday she underwent paracentesis with 3 L of fluid removed. The patient a little confused and weak today. Total bilirubin 4.8 AST 139 AST 41 alkaline phosphatase 99, ammonia 45. 07/01/2022: Patient is seen and examined as a follow-up in the ICU. She is currently MedSurg however there are no beds available. LFTs continue to improve. On nursing is reporting that she still has a little bit of some underlying confusion however most recent ammonia level less than 9. She's having at least 2-3 bowel movements a day. No abdominal pain, nausea or vomiting. 07/02/2022: Patient had been seen and examined went to medical surgical floor. No acute changes through the night. She denies any abdominal pain nausea or vomiting. Still having some difficulty with swallowing and has been seen by speech pathologist who is recommending dysphasia to ground food. 07/03/2022: Patient seen and examined as a follow-up. Again no acute changes, patient was reevaluated by speech therapy and upgraded to a chopped thin liquid diet. Patient initially seen in the morning and have been more awake and alert, by afternoon she did seem somewhat fatigued and confused. However she is tolerating her diet, no abdominal pain, nausea or vomiting. 07/04/2022: Patient seen and examined as follow-up. This morning she states she doesn't feel that great. Repeat ammonia level at 53. Apparently at some point lactulose was either discontinued or and patient had not received lactulose yesterday however on Xifaxan. 07/05/2022: Patient again seen and examined as a follow-up. She is up at the bedside getting washed up. Seems a little bit more alert today. Repeat ammonia level 33 down from 53. No acute changes. No abdominal pain, nausea or vo miting. Objective - Vital Signs Vital signs: Vital Signs Temp 98.3 F 07/05/22 07:22 Pulse 88 07/05/22 07:22 Resp 17 07/05/22 07:22 BP 124/73 07/05/22 07:22 Pulse Ox 91 L 07/05/22 07:22 FiO2 Intake & Output 07/04/22 07/05/22 07/05/22 18:59 06:59 18:59 Intake Total 100 100 Balance 100 100 Intake: Intake, IV Titration 100 Amount Furosemide 100 mg In 100 Sodium Chloride 0.9% 90 ml @ 5 MG/HR 5 mls/hr IV .Q20H [facility] Rx#:[id number] Oral 100 Other: Voiding Method Indwelling Catheter Indwelling Catheter Indwelling Catheter - Exam General appearance: The patient is fatigued, appears in no acute distress. HET: Head is normocephalic and atraumatic. Conjunctiva pink. Sclera anicteric. Neck: Supple without lymphadenopathy. Abdomen: Soft, nontender, nondistended. No guarding or rigidity. Extremities: Normal skin color and turgor. Bilateral lower extremity edema. Skin: No rashes, jaundice. Neurological: No focal deficits. Alert and oriented x2. - Labs CBC & Chem 7: 07/05/22 06:46 07/05/22 06:46 Labs: Abnormal Lab Results - Last 24 Hours (Table) 07/04/22 07/04/22 07/05/22 Range/Units 07:51 07:51 06:46 RBC 2.75 L (4.10-5.20) X 10*6/uL Hgb 10.4 L (12.0-15.0) g/dL Hct 28.2 L (37.2-46.3) % MCV 102.5 H (80.0-97.0) fL MCH 37.8 H (27.0-32.0) pg RDW 15.3 H (11.5-14.5) % Plt Count 90 L (140-440) X 10*3/uL Plt Count Comment DECREASED A Absolute Nucleated RBC 0.02 H (0.00-0.00) X 10*3/uL Immature Gran # 0.08 H (0.00-0.04) X 10*3/uL Monocytes # 1.40 H (0.20-1.00) X 10*3/uL Eosinophils # 0.03 L (0.04-0.35) X 10*3/uL NRBC/100 WBC Diff 0.2 H (0.0-0.0) /100 WBCS Sodium 127 L (135-145) mmol/L Chloride 91 L (96-109) mmol/L Carbon Dioxide 28.9 H (20.0-27.5) mmol/L Anion Gap 6.40 L (10.00-18.00) mmol/L BUN/Creatinine Ratio 20.48 H (12.00-20.00) Ratio Calcium 8.0 L (8.7-10.3) mg/dL Total Bilirubin 3.70 H (0.30-1.20) mg/dL AST 141 H (13-35) U/L ALT 67 H (8-44) U/L Ammonia 33 H (<30) umol/L Total Protein 5.4 L (6.2-8.2) g/dL Albumin 2.7 L (3.8-4.9) g/dL Albumin/Globulin Ratio 1.05 L (1.60-3.17) g/dL Assessment and Plan (1) Alcoholic hepatitis with ascites Narrative/Plan: 71-year-old admitted with nausea vomiting, weakness and severe hyponatremia. Patient has a history of alcohol intoxication, abuse drinking at least 1 bottle of wine the last one year duration. Patient was noted to have elevated LFTs on admission, CT of the abdomen and pelvis reporting heterogeneity of the liver suggestive of cirrhosis or hepatitis. Patient likely has underlying cirrhosis of the liver related to alcohol abuse. New onset ascites. Patient's abdomen soft at this time, may require paracentesis in the next 1-2 days duration and will get fluid studies at that time if needed. Otherwise discussed with patient importance of alcohol abstinence and need for outpatient follow-up for her underlying liver disease. Nephrology following patient closely. Lasix 40 mg twice a day added. Paracentesis completed with 3 L removed. Fluid studies consistent with underlying liver disease patient with decompensated cirrhosis of the liver.. Current Visit: Yes Status: Acute Code(s): K70.11 - ALCOHOLIC HEPATITIS WITH ASCITES SNOMED Code(s): 2276861427520928 (2) Nausea and vomiting Narrative/Plan: Patient with complaints of nausea and vomiting related to eating. Unclear etiology at this time. May be related to underlying hyponatremia and hypomagnesemia. No plans on EGD at this time. Will continue with proton X 40 mg daily. And reporting oral and pharyngeal phases of the swallow that are within normal limits. Patient did experience some complaints of esophageal pain and a sensation of nausea after eating textured food. Will keep on clear liquid diet and advance to full liquid diet in the morning. Current Visit: Yes Status: Acute Code(s): R11.2 - NAUSEA WITH VOMITING, UNSPECIFIED SNOMED Code(s): 76744297 (3) Hyponatremia Current Visit: Yes Status: Acute Code(s): E87.1 - HYPO-OSMOLALITY AND HYPONATREMIA SNOMED Code(s): 23846341 (4) Hyperammonemia Narrative/Plan: Lactulose 30 g 3 times a day, titrate to have 3-4 bowel movements daily hepatic encephalopathy. Xifaxan also order for hepatic encephalopathy Current Visit: Yes Status: Acute Code(s): E72.20 - DISORDER OF UREA CYCLE METABOLISM, UNSPECIFIED SNOMED Code(s): 9233517 Plan: 1. Continue symptomatic and supportive care 2. Avoid hepatotoxic medications 3. Alcohol abstinence 4. Low-sodium diet 5. Repeat ammonia 6. No plans on EGD at this time 7. Lactulose 30 g 3 times a day, titrate to have 2-3 bowel movements daily. Continue Xifaxan 8. Continue with recommendations on diuretics from nephrology 9. Recommend outpatient follow-up with gastroenterology for underlying liver disease Thank you for this consultation, the patient is cleared for discharge from gastroenterology was otherwise medically stable Dr. Percy Tejada I agree with the dictator's note, documented as a scribe by Bonita Ellsworth.
--- NOTE | 2022-07-05 13:18 | P.PN ---
Subjective Progress Note Date: 07/05/22 Principal diagnosis: Hyponatremia, alcoholic liver disease. The patient is seen today 07/02/2022 in follow-up in the intensive care unit. She is currently resting comfortably in bed. Awake and alert in no acute distress. Still somewhat slow to respond. She does admit to drinking 3 glasses of wine daily. She remains in the CIWA protocol. She is continued on a Lasix drip at 10 mg per hour. She remains on antibiotics in the form of ceftriaxone. Continued on sodium bicarbonate tablets. Current sodium 125. Potassium 2.6. Chloride 87. BUN 1915. Creatinine 0.69. Potassium is being replaced. She is maintaining good O2 saturations in the mid to upper 90s on room air. Afebrile. Hemodynamically stable. The patient is seen today 07/03/2022 and a follow-up on the regular medical floor. She is currently resting comfortably in bed. Awake and alert in no acute distress. Maintaining O2 saturations in the 90s on room air. No IV fluids. Off the Lasix drip. Currently in a 3.1 L negative balance. She is a bit jaundice. She remains in the CIWA protocol. Remains on Solu-Cortef. White count 7.8. Hemoglobin 10.4. Platelet count 85,000. Sodium 129. Potassium 3.9. BUN 14. Creatinine 0.7. Urine culture positive for E. coli. Remains on ceftriaxone. The patient is seen today 07/04/2022 in follow-up on the regular medical floor. Awake and alert in no acute distress. Resting comfortably in bed. Maintaining O2 saturations in the 90s on room air. Working with physical therapy. Chest x- ray reveals a left lower lobe small effusions/atelectasis. Urine culture had been positive for E. coli. White count 9.9. Hemoglobin 10.4. Platelets 90,000. Sodium 127. Potassium 3.5. BUN 13. Creatinine 0.7. AST 141. ALT 67. She remains on ceftriaxone. Continued on a Lasix drip at 10 mg per hour. Heparin for DVT prophylaxis. Remains in the CIWA protocol. Remains in a negative balance. Progress note dated 07/05/2022. The patient is again seen in room 459. The patient is currently not on any supplemental oxygen. She's not receiving any IV fluids. The Lasix drip has been discontinued. She still has lower extremity edema, 2+ on examination. She denies any shortness of breath or difficulty breathing. Labs today include a white count of 9.53, hemoglobin 10.5, hematocrit 28.9, and a platelet count of 205,000. PT was 17.4 with an INR 1.62. Sodium 124, potassium 3, chloride 88, CO2 29, with a normal BUN and creatinine. Urine sample from June 27 was positive for Escherichia coli. No recent chest x-rays to review. Objective - Vital Signs Vital signs: Vital Signs Temp 98.3 F 07/05/22 07:22 Pulse 80 07/05/22 12:02 Resp 17 07/05/22 07:22 BP 124/73 07/05/22 07:22 Pulse Ox 91 L 07/05/22 07:22 FiO2 Intake & Output 07/04/22 07/05/22 07/05/22 18:59 06:59 18:59 Intake Total 100 100 Balance 100 100 Intake: Intake, IV Titration 100 Amount Furosemide 100 mg In 100 Sodium Chloride 0.9% 90 ml @ 5 MG/HR 5 mls/hr IV .Q20H [facility] Rx#:[id number] Oral 100 Other: Voiding Method Indwelling Catheter Indwelling Catheter Indwelling Catheter - Exam No acute distress, confused, currently on no supplemental oxygen. HEENT examination is grossly unremarkable. Scleral icterus is noted. Neck supple. Full range of motion. No adenopathy thyromegaly or neck vein distention. Cardiovascular examination reveals regular rhythm rate. S1-S2 normal. No S3 or S4. No discernible murmur noted. Heart rate 80 bpm. Lungs reveal clear breath sounds. Breath sounds are equal bilaterally. No adventitious lung sounds including wheezes rhonchi or crackles. Room air saturation is 93%. Abdomen soft bowel sounds are heard. No masses or tenderness. Extremities are intact. No cyanosis or clubbing. 2+ pitting edema is noted in the lower extremities. Skin is without rash or lesion. Neurologic examination is brief but nonfocal. - Labs CBC & Chem 7: 07/05/22 06:46 07/05/22 06:46 Labs: Abnormal Lab Results - Last 24 Hours (Table) 07/05/22 07/05/22 07/05/22 Range/Units 06:46 06:46 06:46 RBC 2.75 L (4.10-5.20) X 10*6/uL Hgb 10.5 L (12.0-15.0) g/dL Hct 28.9 L (37.2-46.3) % MCV 105.1 H (80.0-97.0) fL MCH 38.2 H (27.0-32.0) pg RDW 15.0 H (11.5-14.5) % Plt Count 105 L (140-440) X 10*3/uL MPV 9.4 L (9.5-12.2) fL Absolute Nucleated RBC 0.03 H (0.00-0.00) X 10*3/uL NRBC/100 WBC Diff 0.3 H (0.0-0.0) /100 WBCS PT 17.4 H (9.9-11.9) sec INR 1.62 H (0.90-1.11) Sodium (137-145) mmol/L Potassium (3.5-5.1) mmol/L Chloride (98-107) mmol/L Calcium (8.4-10.2) mg/dL Ammonia 33 H (<30) umol/L 07/05/22 Range/Units 06:46 RBC (4.10-5.20) X 10*6/uL Hgb (12.0-15.0) g/dL Hct (37.2-46.3) % MCV (80.0-97.0) fL MCH (27.0-32.0) pg RDW (11.5-14.5) % Plt Count (140-440) X 10*3/uL MPV (9.5-12.2) fL Absolute Nucleated RBC (0.00-0.00) X 10*3/uL NRBC/100 WBC Diff (0.0-0.0) /100 WBCS PT (9.9-11.9) sec INR (0.90-1.11) Sodium 124 L (137-145) mmol/L Potassium 3.0 L (3.5-5.1) mmol/L Chloride 88 L (98-107) mmol/L Calcium 7.5 L (8.4-10.2) mg/dL Ammonia (<30) umol/L Assessment and Plan Assessment: Severe hyponatremia secondary to excessive alcohol use, poor salt intake, and excessive fluid intake. Alcoholism. Suspect liver cirrhosis and ascites. Benign essential hypertension. Hypomagnesemia. Alcoholic hepatitis. Acute urinary tract infection secondary to E. coli. Plan: Plan dated 07/05/2022. From the pulmonary standpoint, the patient's doing well. The patient is continuing on antibiotic for her E. coli urinary tract infection. The patient denies any shortness of breath, difficulty breathing, cough, wheezing, or phlegm production. She still has lower extremity edema. That's being addressed by the primary service. She remains on lactulose. We will continue to follow make recommendations along the way. Time with Patient: Less than 30
[2022-07-06] MEDS: HEPARIN SODIUM,PORCINE/PF 5,000 UNIT/0.5 ML SYRINGE SQ SCH ×3 (00:17→15:26)
[2022-07-06] MEDS: FUROSEMIDE 10 MG/ML 10 ML VIAL IV SCH ×3 (00:18→15:49)
[2022-07-06] MEDS: ONDANSETRON 4 MG/2 ML VIAL IVP PRN (00:32)
[2022-07-06] MEDS: MORPHINE SULFATE 4 MG/ML SYRINGE IV PRN (06:17)
[2022-07-06] MEDS: RIFAXIMIN 550 MG TABLET PO SCH (08:11)
[2022-07-06] MEDS: MULTIVITAMINS, THERA 1 EACH TAB PO SCH (08:11)
[2022-07-06] MEDS: THIAMINE 100 MG TAB PO SCH (08:11)
[2022-07-06] MEDS: FOLIC ACID 1 MG TAB PO SCH (08:11)
[2022-07-06] MEDS: LACTULOSE 20 GM/30 ML CUP PO SCH ×3 (08:11→21:26)
[2022-07-06] MEDS: MIDODRINE 5 MG TAB PO SCH ×3 (08:11→15:51)
[2022-07-06 09:00] LABS: Potassium 3.2 mmol/L (3.5-5.5)
[2022-07-06] MEDS ORDERED: POTASSIUM CHLORIDE ER 20 MEQ TAB.ER PO STA (09:11)
[2022-07-06] MEDS: PANTOPRAZOLE 40 MG/10 ML VIAL IVP SCH (09:26)
[2022-07-06] MEDS ORDERED: TOLVAPTAN 15 MG 1/2 TABLET PO ONE (09:30)
--- NOTE | 2022-07-06 09:31 | P.PN ---
Subjective Progress Note Date: 07/05/22 This is a 71-year-old female who was recently brought to the emergency room with nausea and vomiting and generalized weakness and having decreased urine output and increase in abdominal distention. Patient does have past medical history of rheumatoid arthritis and daily alcohol use and CT of the abdomen showed a heterogenicity of the liver which appears new and could be related to hepatitis or cirrhosis with a moderate abdominal ascites noted and sigmoid diverticulosis. Multiple medical consultations including pulmonary, GI, nephrology following and patient was maintained in the ICU for quite some time on hypertonic solution. Patient continues on Lasix drip along with antibiotics. Patient con tinues to be extremely lethargic and will continue with lactulose 20 mg twice a day. Patient was started on antibiotics for UTI. Multiple electrolyte abnormalities as well and sodium is 127 today. Potassium is 3.5, current creatinine is 0.7 and total bili is 3.7. Recommend repeat labs. 07/05/2021 Patient is seen today in follow up and is currently sitting up in the chair and mentation is somewhat improved. Patient sodium continued to be low and nephrology following . Planning ecf and case management following. Patient is off lasix drip maintained on IV push Lasix with nephrology following. Recommend repeat labs in the a.m. Patient continues on ceftriaxone with urine cultures finalizing E. coli and will continue short course of oral antibiotics on discharge. Case management is following and working on accepting facilities with insurance authorization. Encouraged oral intake and continued physical therapy daily. Potassium again low at 3.0 and will replace per protocol and will add daily supplements. Recommend to replace as needed. Patient to be given a dose of samsca per nephrology. Recommend Latham catheter removal as well. Review of systems: Unable to obtain as patient is lethargic and confused Active Medications Folic Acid (Folic Acid 1 Mg Tab) 1 mg PO DAILY [facility]ALY Last Admin: 07/05/22 09:03 Dose: 1 mg Furosemide (Furosemide 10 Mg/Ml 10 Ml Vial) 60 mg IV Q8HR [facility] Last Admin: 07/05/22 15:24 Dose: 60 mg Heparin Sodium (Porcine) (Heparin Sodium,Porcine/Pf 5,000 Unit/0.5 Ml Syringe) 5,000 unit SQ Q8HR [facility] Last Admin: 07/05/22 15:24 Dose: 5,000 unit Ceftriaxone Sodium 1 gm/ (Sodium Chloride) 50 mls @ 100 mls/hr IVPB Q24H [facility]; Protocol Last Admin: 07/05/22 15:25 Dose: 100 mls/hr Lactulose (Lactulose 20 Gm/30 Ml Cup) 30 gm PO TID [facility] Last Admin: 07/05/22 15:24 Dose: Not Given Lorazepam (Lorazepam 1 Mg/0.5 Ml Vial) 1 mg IV Q1HR PRN PRN Reason: CIWA 10 to 15 Last Admin: 06/30/22 23:41 Dose: 1 mg Lorazepam (Lorazepam 1 Mg/0.5 Ml Vial) 1 mg IV Q2HR PRN PRN Reason: CIWA 8 or 9 Last Admin: 06/30/22 05:16 Dose: 1 mg Lorazepam (Lorazepam 1 Mg/0.5 Ml Vial) 2 mg IV Q10M PRN PRN Reason: CIWA 16 or higher Stop: 07/07/22 18:12 Last Admin: 06/28/22 17:24 Dose: 2 mg Midodrine (Midodrine 5 Mg Tab) 10 mg PO AC-TID [facility] Last Admin: 07/05/22 16:41 Dose: Not Given Miscellaneous Information (Magnesium Replacement Protocol 1 Each Misc) 1 each MISCELLANE DAILY PRN; Protocol PRN Reason: Per Protocol Miscellaneous Information (Potassium Replacement Protocol 1 Each Misc) 1 each MISCELLANE DAILY PRN; Protocol PRN Reason: Per Protocol Morphine Sulfate (Morphine Sulfate 4 Mg/Ml Syringe) 4 mg IV Q2HR PRN PRN Reason: Pain Scale 8 to 10 Last Admin: 06/27/22 20:08 Dose: 4 mg Multivitamins (Multivitamins, Thera 1 Each Tab) 1 each PO DAILY [facility] Last Admin: 07/05/22 09:02 Dose: 1 each Naloxone HCl (Naloxone 0.4 Mg/Ml 1 Ml Vial) 0.2 mg IV Q2M PRN PRN Reason: Opioid Reversal Ondansetron HCl (Ondansetron 4 Mg/2 Ml Vial) 4 mg IVP Q6HR PRN PRN Reason: Nausea And Vomiting Last Admin: 06/27/22 08:12 Dose: 4 mg Pantoprazole Sodium (Pantoprazole 40 Mg/10 Ml Vial) 40 mg IVP DAILY [facility] Last Admin: 07/05/22 09:03 Dose: 40 mg Rifaximin (Rifaximin 550 Mg Tablet) 550 mg PO BID [facility]; Protocol Stop: 07/29/22 21:01 Last Admin: 07/05/22 09:02 Dose: 550 mg Thiamine HCl (Thiamine 100 Mg Tab) 100 mg PO DAILY [facility] Last Admin: 07/05/22 09:03 Dose: 100 mg PHYSICAL EXAMINATION: GENERAL: The patient is more awake and sitting up in the chair today, continues to be somewhat confused, Well developed, well nourished. HEENT: Pupils are round and equally reacting to light. EOMI. scleral icterus. No conjunctival pallor. Normocephalic, atraumatic. No pharyngeal erythema. No thyromegaly. CARDIOVASCULAR: S1 and S2 muffled PULMONARY: diminished breath sounds bilaterally with no wheezing or rhonchi noted. ABDOMEN: soft. Nontender on exam. obese. non-distended, normoactive bowel sounds. No palpable organomegaly. MUSCULOSKELETAL: No joint swelling or deformity. EXTREMITIES: No cyanosis, clubbing, or pedal edema. NEUROLOGICAL: Gross neurological examination did not reveal any focal deficits. Diffuse weakness SKIN: No rashes. Assessment: Hyponatremia likely hypoosmolar with decreased oral intake. Intractable nausea and vomiting and decreased oral intake Acute alcohol withdrawal symptoms Acute alcoholic hepatitis Ascites E. coli urinary tract infection Liver cirrhosis likely alcohol related Hyperbilirubinemia Alcohol abuse Hypomagnesemia 0.9 Macrocytosis MCV 107.0 due to alcohol abuse GI prophylaxis DVT prophylaxis Full code Plan: Recommend to continue with current medications and management with GI and nephrology following closely. Patient continues on antibiotics for acute urinary tract infection. Urine cultures finalized with E. coli with sensitivit ies and will continue ceftriaxone. Continue with lactulose and recommend repeat labs. Patient is maintained on IV push Lasix with nephrology following and is given a dose of Samsca today and recommend repeat labs. Ammonia slightly improved. Patient is more awake and sitting up in the chair today. Hemoglobin remained stable with no further episodes of epistaxis. Recommend to replace electrolytes per protocol and close monitoring. Will add daily dose of potassium as potassium continues to be low on a daily basis. Due to multiple complex medical issues, prognosis is guarded. PT/OT to evaluate the patient and planning on ECF. Case management following for ECF once stabilized and discha rged. Possible discharge in 24-48 hours. The impression and plan of care has been dictated by Bee Pichardo, nurse practitioner as directed. Dr. Orville MD I have performed a history and examination and MDM of this patient, discussed the same with the dictator, and agree with the dictator's assessment and plan as written ,documented as a scribe. Based on total visit time, I have performed more than 50% of the visit. Any additional findings or plans will be noted. Objective - Vital Signs Vital signs: Vital Signs Temp 98.4 F 07/05/22 14:00 Pulse 81 07/05/22 14:00 Resp 17 07/05/22 14:00 BP 128/68 07/05/22 14:00 Pulse Ox 93 L 07/05/22 14:00 FiO2 Intake & Output 07/04/22 07/05/22 07/05/22 18:59 06:59 18:59 Intake Total 100 100 Output Total 2104 Balance 100 100 -2104 Weight 80 kg Intake: Intake, IV Titration 100 Amount Furosemide 100 mg In 100 Sodium Chloride 0.9% 90 ml @ 5 MG/HR 5 mls/hr IV .Q20H [facility] Rx#:[id number] Oral 100 Output: Urine 2100 Stool 4 Other: Voiding Method Indwelling Catheter Indwelling Catheter Indwelling Catheter - Labs CBC & Chem 7: 07/05/22 06:46 07/06/22 05:59 Labs: Abnormal Lab Results - Last 24 Hours (Table) 07/05/22 07/05/22 07/05/22 Range/Units 06:46 06:46 06:46 RBC 2.75 L (4.10-5.20) X 10*6/uL Hgb 10.5 L (12.0-15.0) g/dL Hct 28.9 L (37.2-46.3) % MCV 105.1 H (80.0-97.0) fL MCH 38.2 H (27.0-32.0) pg RDW 15.0 H (11.5-14.5) % Plt Count 105 L (140-440) X 10*3/uL MPV 9.4 L (9.5-12.2) fL Absolute Nucleated RBC 0.03 H (0.00-0.00) X 10*3/uL NRBC/100 WBC Diff 0.3 H (0.0-0.0) /100 WBCS PT 17.4 H (9.9-11.9) sec INR 1.62 H (0.90-1.11) Sodium (137-145) mmol/L Potassium (3.5-5.1) mmol/L Chloride (98-107) mmol/L Calcium (8.4-10.2) mg/dL Ammonia 33 H (<30) umol/L 07/05/22 Range/Units 06:46 RBC (4.10-5.20) X 10*6/uL Hgb (12.0-15.0) g/dL Hct (37.2-46.3) % MCV (80.0-97.0) fL MCH (27.0-32.0) pg RDW (11.5-14.5) % Plt Count (140-440) X 10*3/uL MPV (9.5-12.2) fL Absolute Nucleated RBC (0.00-0.00) X 10*3/uL NRBC/100 WBC Diff (0.0-0.0) /100 WBCS PT (9.9-11.9) sec INR (0.90-1.11) Sodium 124 L (137-145) mmol/L Potassium 3.0 L (3.5-5.1) mmol/L Chloride 88 L (98-107) mmol/L Calcium 7.5 L (8.4-10.2) mg/dL Ammonia (<30) umol/L
--- NOTE | 2022-07-06 11:36 | P.PN ---
Subjective Patient is seen for follow-up for severe hyponatremia and volume overload. Status post Lasix drip Serum sodium has dropped to 124 yesterday and improved to 128 today post Samsca. 24 hour urine output at 1100 ML. Objective - Vital Signs Vital signs: Vital Signs Temp 98.4 F 07/06/22 07:25 Pulse 85 07/06/22 07:25 Resp 17 07/06/22 07:25 BP 125/73 07/06/22 07:25 Pulse Ox 93 L 07/06/22 07:25 FiO2 Intake & Output 07/05/22 07/06/22 07/06/22 18:59 06:59 18:59 Output Total 2104 1 Balance -2103 Weight 80 kg Output: Urine 2100 Stool 4 1 Other: Voiding Method Indwelling Catheter # Voids 5 - Exam Patient is awake. Examination of the heart S1 and S2 Examination lungs decreased breath sounds at the bases Abdomen is soft nontender Examination of lower extremities shows edema 1+ bilaterally [employer] exam grossly intact - Labs CBC & Chem 7: 07/05/22 06:46 07/06/22 05:59 Labs: Abnormal Lab Results - Last 24 Hours (Table) 07/06/22 Range/Units 05:59 Sodium 128 L (135-145) mmol/L Potassium 3.2 L (3.5-5.5) mmol/L Assessment and Plan Assessment: 1. Hyponatremia associated with poor solute intake and hypervolemia. Serum sodium was 106 on initial admission and had dropped with normal saline. Status post 3% saline and Lasix drip for volume overload. Serum sodium is slowly improving. Patient remains hypervolemic 2. History of EtOH abuse with concern for alcoholic hepatitis. 3. Benign hypertension with low blood pressures initially currently improved 4. Ascites status post paracentesis with 3 L of fluid removed 5. Volume overload 6. Metabolic acidosis status post sodium bicarb Plan: Samsca by mouth 1 Replace potassium Repeat labs in a.m. Continue with current dose of IV Lasix
--- NOTE | 2022-07-06 12:59 | P.PN ---
Subjective Progress Note Date: 07/06/22 This is a 71-year-old female, heavy drinker, patient drinks on a daily basis, brought into the hospital with one month history of nausea and vomiting, constipation, and her abdomen has been gradually getting more and more distended.patient is not a great historian but she has been complaining of fatigue, and not feeling well. Her son insisted that she comes into the ER.upon her initial evaluation in the ER, patient was noted to be hyponatremic with a sodium of 105. She was also noted to have heterogeneous liver possible cirrhosis and possible hepatitis. Patient drinks on the average of one bottle of wine a day.CT abdomen and pelvis also showed moderate abdominal ascites which is a new compared to previous exam done in 2019.at any rate considering her profound hyponatremia I was asked to see the patient on consultation. And she was admitted to the ICU. Started initially on 3% saline as per nephrology to get her sodium slowly up to the range of 120/125 Reevaluated today on 06/28/22, patient remains in the ICU, she is feeling better, she is on room air, does not seem to be in any distress, patient is supposed to undergo paracentesis today. Her sodium is correcting nicely and slowly. Patient is now not receiving any IV fluids. And again her sodium seems to be coming up nicely today's sodium is 114, patient was admitted with a sodium of 104 on admission patient denies any shortness of breath no cough no wheezing no nausea no vomiting no abdominal pain no melena no hematemesis remains on the CIWA protocol, and seems to be doing well Reevaluated today on 06/29/22, patient remains in the ICU, her hyponatremia is responding well to treatment slowly patient's sodium today is 117, she has a urine output of 20-30 mL/h, she had 3 L of fluid drained from her peritoneal cavity yesterday by interventional radiology results of which are pending. Patient was noted to have evidence of UTI, and she is now on Rocephin empirically. Her ammonia level was noted to be 45 today, and she was placed on lactulose. Patient remains on the CIWA protocol. Intermittently noted to be confused, but overall she is doing well. And she seems to be quite slow and lethargic not to mention the patient is receiving Ativan for potential withdrawal basic metabolic profile was noted today sodium is 117 her renal profile is normal anion gap is 14 BUN is 8 and creatinine is 0.98 Patient is still in ICU, seen today on 06/30/22, she seems to be intermittently confused, she is on the CIWA protocol for alcohol withdrawal, remains on Lasix and drip at 10 mg per hour. She is an negative balance of 1.7 L in the last 24 hours. Sodium today is up to 124. Patient is hemodynamically stable, and inte rmittent confusion is an issue, and she will remain in the ICU mostly because of her confusion. Remains on antibiotics/Rocephin for UTI. Reevaluated today on 07/01/22, patient remains in the ICU, intermittently confused, but overall she seems to be arousable, follows simple instructions, and she is not requiring much in terms of sedation for her potential alcohol withdrawal. Her last dose of Ativan was last night. Her sodium is up to 128 electrolytes are normal except for low potassium of 3.2 CBC is normal, urine is positive for E. coli., Peritoneal fluid was noted, cultures are pending on the fluid, so far no clear-cut evidence of infection. The patient is seen today 07/02/2022 in follow-up in the intensive care unit. She is currently resting comfortably in bed. Awake and alert in no acute distress. Still somewhat slow to respond. She does admit to drinking 3 glasses of wine daily. She remains in the CIWA protocol. She is continued on a Lasix drip at 10 mg per hour. She remains on antibiotics in the form of ceftriaxone. Continued on sodium bicarbonate tablets. Current sodium 125. Potassium 2.6. Chloride 87. BUN 1915. Creatinine 0.69. Potassium is being replaced. She is maintaining good O2 saturations in the mid to upper 90s on room air. Afebrile. Hemodynamically stable. The patient is seen today 07/03/2022 and a follow-up on the regular medical floor. She is currently resting comfortably in bed. Awake and alert in no acute distress. Maintaining O2 saturations in the 90s on room air. No IV fluids. Off the Lasix drip. Currently in a 3.1 L negative balance. She is a bit jaundice. She remains in the CIWA protocol. Remains on Solu-Cortef. White count 7.8. Hemoglobin 10.4. Platelet count 85,000. Sodium 129. Potassium 3.9. BUN 14. Creatinine 0.7. Urine culture positive for E. coli. Remains on ceftriaxone. The patient is seen today 07/04/2022 in follow-up on the regular medical floor. Awake and alert in no acute distress. Resting comfortably in bed. Maintaining O2 saturations in the 90s on room air. Working with physical therapy. Chest x- ray reveals a left lower lobe small effusions/atelectasis. Urine culture had been positive for E. coli. White count 9.9. Hemoglobin 10.4. Platelets 90,000. Sodium 127. Potassium 3.5. BUN 13. Creatinine 0.7. AST 141. ALT 67. She remains on ceftriaxone. Continued on a Lasix drip at 10 mg per hour. Heparin for DVT prophylaxis. Remains in the CIWA protocol. Remains in a neg ative balance. The patient is seen today 07/06/2022 in follow-up on the regular medical floor. She is currently sitting up in a chair at the bedside. Awake and alert in no acute distress. She is maintaining good O2 saturations in the 90s on room air. She's been afebrile. Hemodynamically stable. Sodium 128. Potassium 3.2. She had been continued on ceftriaxone. Heparin for DVT prophylaxis. CIWA protocol. Objective - Vital Signs Vital signs: Vital Signs Temp 98.4 F 07/06/22 07:25 Pulse 85 07/06/22 07:25 Resp 17 07/06/22 07:25 BP 128/84 07/06/22 11:49 Pulse Ox 93 L 07/06/22 07:25 FiO2 Intake & Output 07/05/22 07/06/22 07/06/22 18:59 06:59 18:59 Output Total 2104 1 Balance -2103 Weight 80 kg Output: Urine 2100 Stool 4 1 Other: Voiding Method Indwelling Catheter # Voids 5 - Exam GENERAL EXAM: Alert, 71-year-old female, slightly jaundiced, on room air, comfortable in no apparent distress. HEAD: Normocephalic. EYES: Normal reaction of pupils, equal size. NOSE: Clear with pink turbinates. THROAT: No erythema or exudates. NECK: No masses, no JVD. CHEST: No chest wall deformity. LUNGS: Equal air entry with no crackles, wheeze, rhonchi or dullness. CVS: S1 and S2 normal with no audible murmur, regular rhythm. ABDOMEN: Abdominal distention, tenderness, normal bowel sounds, no guarding or rigidity. SPINE: No scoliosis or deformity SKIN: No rashes CENTRAL NERVOUS SYSTEM: No focal deficits, tone is normal in all 4 extremities. EXTREMITIES: There is no peripheral edema. No clubbing, no cyanosis. Peripheral pulses are intact. - Labs CBC & Chem 7: 07/05/22 06:46 07/06/22 05:59 Labs: Abnormal Lab Results - Last 24 Hours (Table) 07/06/22 Range/Units 05:59 Sodium 128 L (135-145) mmol/L Potassium 3.2 L (3.5-5.5) mmol/L Assessment and Plan Assessment: Severe hyponatremia secondary to excessive alcohol use, poor salt intake, and excessive fluid intake Alcoholism Suspect liver cirrhosis and ascites Benign essential hypertension Hypomagnesemia Alcoholic hepatitis Acute urinary tract infection secondary to E. coli currently on ceftriaxone Plan: The patient was seen and evaluated Labs and medications reviewed Stable and on room air Home once cleared by medicine Will most likely need subacute rehabilitation I have personally seen and examined the patient, performed the documentation and the assessment and plan as written. Number of minutes spent on the visit: 10.
--- NOTE | 2022-07-06 15:09 | P.PN ---
Subjective Progress Note Date: 07/06/22 This is a 71-year-old female who was recently brought to the emergency room with nausea and vomiting and generalized weakness and having decreased urine output and increase in abdominal distention. Patient does have past medical history of rheumatoid arthritis and daily alcohol use and CT of the abdomen showed a heterogenicity of the liver which appears new and could be related to hepatitis or cirrhosis with a moderate abdominal ascites noted and sigmoid diverticulosis. Multiple medical consultations including pulmonary, GI, nephrology following and patient was maintained in the ICU for quite some time on hypertonic solution. Patient continues on Lasix drip along with antibiotics. Patient con tinues to be extremely lethargic and will continue with lactulose 20 mg twice a day. Patient was started on antibiotics for UTI. Multiple electrolyte abnormalities as well and sodium is 127 today. Potassium is 3.5, current creatinine is 0.7 and total bili is 3.7. Recommend repeat labs. 07/05/2021 Patient is seen today in follow up and is currently sitting up in the chair and mentation is somewhat improved. Patient sodium continued to be low and nephrology following . Planning ecf and case management following. Patient is off lasix drip maintained on IV push Lasix with nephrology following. Recommend repeat labs in the a.m. Patient continues on ceftriaxone with urine cultures finalizing E. coli and will continue short course of oral antibiotics on discharge. Case management is following and working on accepting facilities with insurance authorization. Encouraged oral intake and continued physical therapy daily. Potassium again low at 3.0 and will replace per protocol and will add daily supplements. Recommend to replace as needed. Patient to be given a dose of samsca per nephrology. Recommend [place] catheter removal as well. 07/06/2022 Patient is seen and evaluated in follow-up today currently sitting up in the chair more awake and alert and appropriate to commands and questions. Patient continues with some confusion although much more appropriate today. Patient is maintained on IV antibiotics in the form of ceftriaxone and urine culture has finalized with E. coli with sensitivities and will continue for now. Patient is being followed closely by nephrology and maintained on IV push Lasix recommending another 24 hours and close monitoring of kidney functions along with electrolytes. Patient was given a dose of Samsca yesterday again today and current sodium mildly elevated up to 128 today. Potassium remains low at 3.2 and will replace per protocol and recommend daily supplementation of potassium. Patient is afebrile with no reports of nausea or vomiting noted. Recommend fluid restrictions as well. Recommend PT/OT therapy daily. Case management following as well as patient will likely need ECF for continued weakness. Patient and family are agreeable with this plan. Review of systems: Unable to obtain as patient is confused Active Medications Folic Acid (Folic Acid 1 Mg Tab) 1 mg PO DAILY [facility] Last Admin: 07/06/22 08:11 Dose: 1 mg Furosemide (Furosemide 10 Mg/Ml 10 Ml Vial) 60 mg IV Q8HR [facility] Last Admin: 07/06/22 09:26 Dose: 60 mg Heparin Sodium (Porcine) (Heparin Sodium,Porcine/Pf 5,000 Unit/0.5 Ml Syringe) 5,000 unit SQ Q8HR [facility] Last Admin: 07/06/22 08:11 Dose: 5,000 unit Ceftriaxone Sodium 1 gm/ (Sodium Chloride) 50 mls @ 100 mls/hr IVPB Q24H [facility]; Protocol Last Admin: 07/05/22 15:25 Dose: 100 mls/hr Lactulose (Lactulose 20 Gm/30 Ml Cup) 30 gm PO TID [facility] Last Admin: 07/06/22 08:11 Dose: 30 gm Lorazepam (Lorazepam 1 Mg/0.5 Ml Vial) 1 mg IV Q1HR PRN PRN Reason: CIWA 10 to 15 Last Admin: 06/30/22 23:41 Dose: 1 mg Lorazepam (Lorazepam 1 Mg/0.5 Ml Vial) 1 mg IV Q2HR PRN PRN Reason: CIWA 8 or 9 Last Admin: 06/30/22 05:16 Dose: 1 mg Lorazepam (Lorazepam 1 Mg/0.5 Ml Vial) 2 mg IV Q10M PRN PRN Reason: CIWA 16 or higher Stop: 07/07/22 18:12 Last Admin: 06/28/22 17:24 Dose: 2 mg Midodrine (Midodrine 5 Mg Tab) 10 mg PO AC-TID [facility] Last Admin: 07/06/22 11:49 Dose: Not Given Miscellaneous Information (Magnesium Replacement Protocol 1 Each Misc) 1 each MISCELLANE DAILY PRN; Protocol PRN Reason: Per Protocol Miscellaneous Information (Potassium Replacement Protocol 1 Each Misc) 1 each MISCELLANE DAILY PRN; Protocol PRN Reason: Per Protocol Morphine Sulfate (Morphine Sulfate 4 Mg/Ml Syringe) 4 mg IV Q2HR PRN PRN Reason: Pain Scale 8 to 10 Last Admin: 07/06/22 06:17 Dose: 4 mg Multivitamins (Multivitamins, Thera 1 Each Tab) 1 each PO DAILY [facility] Last Admin: 07/06/22 08:11 Dose: 1 each Naloxone HCl (Naloxone 0.4 Mg/Ml 1 Ml Vial) 0.2 mg IV Q2M PRN PRN Reason: Opioid Reversal Ondansetron HCl (Ondansetron 4 Mg/2 Ml Vial) 4 mg IVP Q6HR PRN PRN Reason: Nausea And Vomiting Last Admin: 07/06/22 00:32 Dose: 4 mg Pantoprazole Sodium (Pantoprazole 40 Mg/10 Ml Vial) 40 mg IVP DAILY [facility] Last Admin: 07/06/22 09:26 Dose: 40 mg Potassium Chloride (Potassium Chloride Er 20 Meq Tab.Er) 20 meq PO DAILY [facility] Rifaximin (Rifaximin 550 Mg Tablet) 550 mg PO BID [facility]; Protocol Stop: 07/29/22 21:01 Last Admin: 07/06/22 08:11 Dose: 550 mg Thiamine HCl (Thiamine 100 Mg Tab) 100 mg PO DAILY [facility] Last Admin: 07/06/22 08:11 Dose: 100 mg PHYSICAL EXAMINATION: GENERAL: The patient is more awake and sitting up in the chair today, continues to be somewhat confused, Well developed, well nourished. HEENT: Pupils are round and equally reacting to light. EOMI. scleral icterus. No conjunctival pallor. Normocephalic, atraumatic. No pharyngeal erythema. No thyromegaly. CARDIOVASCULAR: S1 and S2 muffled PULMONARY: diminished breath sounds bilaterally with no wheezing or rhonchi noted. ABDOMEN: soft. Nontender on exam. obese. non-distended, normoactive bowel sounds. No palpable organomegaly. MUSCULOSKELETAL: No joint swelling or deformity. EXTREMITIES: No cyanosis, clubbing, or pedal edema. NEUROLOGICAL: Gross neurological examination did not reveal any focal deficits. Diffuse weakness SKIN: No rashes. Assessment: Hyponatremia likely hypoosmolar with decreased oral intake. Intractable nausea and vomiting and decreased oral intake Acute alcohol withdrawal symptoms Acute alcoholic hepatitis Ascites E. coli urinary tract infection Liver cirrhosis likely alcohol related Hyperbilirubinemia Alcohol abuse Hypomagnesemia 0.9 Macrocytosis MCV 107.0 due to alcohol abuse GI prophylaxis DVT prophylaxis Full code Plan: Recommend to continue with current medications and management with GI and nephrology following closely. Patient continues on antibiotics for acute urinary tract infection. Urine cultures finalized with E. coli with sensitivities and will continue ceftriaxone. Continue with lactulose and re commend repeat labs. Patient is maintained on IV push Lasix with nephrology following and is given a dose of Samsca today and recommend repeat labs. Sodium is 128 today and will be given another dose of Samsca with follow-up labs in a.m. Ammonia slightly improved. Patient is more awake and sitting up in the chair today. Recommend to replace electrolytes per protocol and close monitoring. Will add daily dose of potassium as potassium continues to be low on a daily basis. Due to multiple complex medical issues, prognosis is guarded. PT/OT to evaluate the patient and planning on ECF. Case management following for ECF once stabilized and discharged. The impression and plan of care has been dictated by Bee Pichardo, nurse practitioner as directed. Dr. Orville MD I have performed a history and examination and MDM of this patient, discussed the same with the dictator, and agree with the dictator's assessment and plan as written ,documented as a scribe. Based on total visit time, I have performed more than 50% of the visit. Any additional findings or plans will be noted. Objective - Vital Signs Vital signs: Vital Signs Temp 98.4 F 07/06/22 07:25 Pulse 85 07/06/22 07:25 Resp 17 07/06/22 07:25 BP 125/73 07/06/22 07:25 Pulse Ox 93 L 07/06/22 07:25 FiO2 Intake & Output 07/05/22 07/06/22 07/06/22 18:59 06:59 18:59 Output Total 2104 1 Balance -2103 -1 Weight 80 kg Output: Urine 2100 Stool 4 1 Other: Voiding Method Indwelling Catheter # Voids 5 - Labs CBC & Chem 7: 07/05/22 06:46 07/06/22 05:59 Labs: Abnormal Lab Results - Last 24 Hours (Table) 07/05/22 07/06/22 Range/Units 06:46 05:59 Sodium 124 L 128 L (137-145) mmol/L Potassium 3.0 L 3.2 L (3.5-5.1) mmol/L Chloride 88 L (98-107) mmol/L Calcium 7.5 L (8.4-10.2) mg/dL
[2022-07-07] MEDS: RIFAXIMIN 550 MG TABLET PO SCH (00:16)
[2022-07-07] MEDS: HEPARIN SODIUM,PORCINE/PF 5,000 UNIT/0.5 ML SYRINGE SQ SCH ×4 (00:17→23:21)
[2022-07-07] MEDS: FUROSEMIDE 10 MG/ML 10 ML VIAL IV SCH ×2 (00:17→08:28)
[2022-07-07] MEDS: LACTULOSE 20 GM/30 ML CUP PO SCH ×3 (08:28→23:14)
[2022-07-07] MEDS: PANTOPRAZOLE 40 MG/10 ML VIAL IVP SCH (08:28)
[2022-07-07] MEDS: MULTIVITAMINS, THERA 1 EACH TAB PO SCH (08:29)
[2022-07-07] MEDS: THIAMINE 100 MG TAB PO SCH (08:29)
[2022-07-07] MEDS: MIDODRINE 5 MG TAB PO SCH ×3 (08:29→16:35)
[2022-07-07] MEDS: FOLIC ACID 1 MG TAB PO SCH (08:29)
[2022-07-07] MEDS: POTASSIUM CHLORIDE ER 20 MEQ TAB.ER PO SCH ×4 (08:29→16:35)
[2022-07-07] MEDS ORDERED: Potassium Replacement Protocol 1 EACH MISC MISCELLANE PRN (11:32)
[2022-07-07] MEDS ORDERED: Magnesium Replacement Protocol 1 EACH MISC MISCELLANE PRN (11:32)
[2022-07-07 11:40] LABS: African American GFR (CKD) >90 (>60 ml/min/1.73 sqM); Anion Gap 10 mmol/L; Blood Urea Nitrogen 14 mg/dL (7-17); Calcium 8.2 mg/dL (8.4-10.2); Carbon Dioxide 29 mmol/L (22-30); Chloride 88 mmol/L (98-107); Glucose 101 mg/dL (74-99); Magnesium 1.3 mg/dL (1.6-2.3); Non-African American GFR(CKD) >90 (>60 ml/min/1.73 sqM); Sodium 127 mmol/L (137-145)
[2022-07-07 11:46] LABS: Potassium 2.6 mmol/L (3.5-5.1)
--- NOTE | 2022-07-07 12:14 | P.PN ---
Subjective Progress Note Date: 07/07/22 This is a 71-year-old female, heavy drinker, patient drinks on a daily basis, brought into the hospital with one month history of nausea and vomiting, constipation, and her abdomen has been gradually getting more and more distended.patient is not a great historian but she has been complaining of fatigue, and not feeling well. Her son insisted that she comes into the ER.upon her initial evaluation in the ER, patient was noted to be hyponatremic with a sodium of 105. She was also noted to have heterogeneous liver possible cirrhosis and possible hepatitis. Patient drinks on the average of one bottle of wine a day.CT abdomen and pelvis also showed moderate abdominal ascites which is a new compared to previous exam done in 2019.at any rate considering her profound hyponatremia I was asked to see the patient on consultation. And she was admitted to the ICU. Started initially on 3% saline as per nephrology to get her sodium slowly up to the range of 120/125 Reevaluated today on 06/28/22, patient remains in the ICU, she is feeling better, she is on room air, does not seem to be in any distress, patient is supposed to undergo paracentesis today. Her sodium is correcting nicely and slowly. Patient is now not receiving any IV fluids. And again her sodium seems to be coming up nicely today's sodium is 114, patient was admitted with a sodium of 104 on admission patient denies any shortness of breath no cough no wheezing no nausea no vomiting no abdominal pain no melena no hematemesis remains on the CIWA protocol, and seems to be doing well Reevaluated today on 06/29/22, patient remains in the ICU, her hyponatremia is responding well to treatment slowly patient's sodium today is 117, she has a urine output of 20-30 mL/h, she had 3 L of fluid drained from her peritoneal cavity yesterday by interventional radiology results of which are pending. Patient was noted to have evidence of UTI, and she is now on Rocephin empirically. Her ammonia level was noted to be 45 today, and she was placed on lactulose. Patient remains on the CIWA protocol. Intermittently noted to be confused, but overall she is doing well. And she seems to be quite slow and lethargic not to mention the patient is receiving Ativan for potential withdrawal basic metabolic profile was noted today sodium is 117 her renal profile is normal anion gap is 14 BUN is 8 and creatinine is 0.98 Patient is still in ICU, seen today on 06/30/22, she seems to be intermittently confused, she is on the CIWA protocol for alcohol withdrawal, remains on Lasix and drip at 10 mg per hour. She is an negative balance of 1.7 L in the last 24 hours. Sodium today is up to 124. Patient is hemodynamically stable, and inte rmittent confusion is an issue, and she will remain in the ICU mostly because of her confusion. Remains on antibiotics/Rocephin for UTI. Reevaluated today on 07/01/22, patient remains in the ICU, intermittently confused, but overall she seems to be arousable, follows simple instructions, and she is not requiring much in terms of sedation for her potential alcohol withdrawal. Her last dose of Ativan was last night. Her sodium is up to 128 electrolytes are normal except for low potassium of 3.2 CBC is normal, urine is positive for E. coli., Peritoneal fluid was noted, cultures are pending on the fluid, so far no clear-cut evidence of infection. The patient is seen today 07/02/2022 in follow-up in the intensive care unit. She is currently resting comfortably in bed. Awake and alert in no acute distress. Still somewhat slow to respond. She does admit to drinking 3 glasses of wine daily. She remains in the CIWA protocol. She is continued on a Lasix drip at 10 mg per hour. She remains on antibiotics in the form of ceftriaxone. Continued on sodium bicarbonate tablets. Current sodium 125. Potassium 2.6. Chloride 87. BUN 1915. Creatinine 0.69. Potassium is being replaced. She is maintaining good O2 saturations in the mid to upper 90s on room air. Afebrile. Hemodynamically stable. The patient is seen today 07/03/2022 and a follow-up on the regular medical floor. She is currently resting comfortably in bed. Awake and alert in no acute distress. Maintaining O2 saturations in the 90s on room air. No IV fluids. Off the Lasix drip. Currently in a 3.1 L negative balance. She is a bit jaundice. She remains in the CIWA protocol. Remains on Solu-Cortef. White count 7.8. Hemoglobin 10.4. Platelet count 85,000. Sodium 129. Potassium 3.9. BUN 14. Creatinine 0.7. Urine culture positive for E. coli. Remains on ceftriaxone. The patient is seen today 07/04/2022 in follow-up on the regular medical floor. Awake and alert in no acute distress. Resting comfortably in bed. Maintaining O2 saturations in the 90s on room air. Working with physical therapy. Chest x- ray reveals a left lower lobe small effusions/atelectasis. Urine culture had been positive for E. coli. White count 9.9. Hemoglobin 10.4. Platelets 90,000. Sodium 127. Potassium 3.5. BUN 13. Creatinine 0.7. AST 141. ALT 67. She remains on ceftriaxone. Continued on a Lasix drip at 10 mg per hour. Heparin for DVT prophylaxis. Remains in the CIWA protocol. Remains in a neg ative balance. The patient is seen today 07/06/2022 in follow-up on the regular medical floor. She is currently sitting up in a chair at the bedside. Awake and alert in no acute distress. She is maintaining good O2 saturations in the 90s on room air. She's been afebrile. Hemodynamically stable. Sodium 128. Potassium 3.2. She had been continued on ceftriaxone. Heparin for DVT prophylaxis. CIWA protocol. The patient is seen today 07/07/2022 in follow-up on the regular medical floor. She is awake and alert in no acute distress. Resting comfortably in bed. Maintaining O2 saturations in the 90s on room air. Lungs sounds are clear. Sodium 127. Potassium 2.6. BUN 14. Creatinine 0.55. Urine culture had been positive for E. coli. Continue ceftriaxone. Remains on IV diuretics. Currently in a -2.1 L balance. Heparin for DVT prophylaxis. Continued on multivitamins. Objective - Vital Signs Vital signs: Vital Signs Temp 97.8 F 07/07/22 07:44 Pulse 79 07/07/22 08:15 Resp 17 07/07/22 08:15 BP 112/60 07/07/22 07:44 Pulse Ox 93 L 07/07/22 07:44 FiO2 Intake & Output 07/06/22 07/07/22 07/07/22 18:59 06:59 18:59 Intake Total 200 Balance 200 Intake: Oral 200 Other: Voiding Method Indwelling Catheter # Voids 4 5 # Bowel Movements 3 5 - Exam GENERAL EXAM: Alert, 71-year-old female, slightly jaundiced, on room air, comfortable in no apparent distress. HEAD: Normocephalic. EYES: Normal reaction of pupils, equal size. NOSE: Clear with pink turbinates. THROAT: No erythema or exudates. NECK: No masses, no JVD. CHEST: No chest wall deformity. LUNGS: Equal air entry with no crackles, wheeze, rhonchi or dullness. CVS: S1 and S2 normal with no audible murmur, regular rhythm. ABDOMEN: Abdominal distention, tenderness, normal bowel sounds, no guarding or rigidity. SPINE: No scoliosis or deformity SKIN: No rashes CENTRAL NERVOUS SYSTEM: No focal deficits, tone is normal in all 4 extremities. EXTREMITIES: There is no peripheral edema. No clubbing, no cyanosis. Peripheral pulses are intact. - Labs CBC & Chem 7: 07/05/22 06:46 07/07/22 10:50 Labs: Abnormal Lab Results - Last 24 Hours (Table) 07/07/22 Range/Units 10:50 Sodium 127 L (137-145) mmol/L Potassium 2.6 L* (3.5-5.1) mmol/L Chloride 88 L (98-107) mmol/L Glucose 101 H (74-99) mg/dL Calcium 8.2 L (8.4-10.2) mg/dL Magnesium 1.3 L (1.6-2.3) mg/dL Assessment and Plan Assessment: Severe hyponatremia secondary to excessive alcohol use, poor salt intake, and excessive fluid intake recurrent sodium 127 Alcoholism Suspect liver cirrhosis and ascites Benign essential hypertension Hypomagnesemia Alcoholic hepatitis Acute urinary tract infection secondary to E. coli currently on ceftriaxone Plan: The patient was seen and evaluated Labs and medications reviewed Stable and on room air Continued on diuretics Replace electrolytes Will most likely need subacute rehabilitation I have personally seen and examined the patient, performed the documentation and the assessment and plan as written. Number of minutes spent on the visit: 10.
--- NOTE | 2022-07-07 14:23 | P.PN ---
Subjective Progress Note Date: 07/07/22 Follow-up for hyponatremia. Feels better. No nausea vomiting diarrhea. Objective - Vital Signs Vital signs: Vital Signs Temp 97.8 F 07/07/22 07:44 Pulse 79 07/07/22 08:15 Resp 17 07/07/22 08:15 BP 112/60 07/07/22 07:44 Pulse Ox 93 L 07/07/22 07:44 FiO2 Intake & Output 07/06/22 07/07/22 07/07/22 18:59 06:59 18:59 Intake Total 200 Balance 200 Intake: Oral 200 Other: Voiding Method Indwelling Catheter # Voids 4 5 # Bowel Movements 3 5 - Exam No acute distress S1-S2 heard Lungs clear Trace edema - Labs CBC & Chem 7: 07/05/22 06:46 07/07/22 10:50 Labs: Abnormal Lab Results - Last 24 Hours (Table) 07/07/22 Range/Units 10:50 Sodium 127 L (137-145) mmol/L Potassium 2.6 L* (3.5-5.1) mmol/L Chloride 88 L (98-107) mmol/L Glucose 101 H (74-99) mg/dL Calcium 8.2 L (8.4-10.2) mg/dL Magnesium 1.3 L (1.6-2.3) mg/dL Assessment and Plan Assessment: #1 hypervolemic hyponatremia. #2 EtOH abuse with alcoholic hepatitis. #3 hypertension essential. #4 decompensated liver disease with ascites status post paracentesis #5 hypokalemia secondary to renal loss from diuretics Plan: #1 hold Lasix #2 replace potassium #3 check labs in the morning #4 avoid nephrotoxic agents.
[2022-07-07] MEDS: MAGNESIUM SULFATE-D5W PMX 1 GM in DEXTROSE/WATER 1 100ML.BAG IVPB SCH ×3 (17:53→23:20)
[2022-07-08] MEDS: MAGNESIUM SULFATE-D5W PMX 1 GM in DEXTROSE/WATER 1 100ML.BAG IVPB SCH (00:25)
[2022-07-08] MEDS: PANTOPRAZOLE 40 MG/10 ML VIAL IVP SCH (08:24)
[2022-07-08] MEDS: LACTULOSE 20 GM/30 ML CUP PO SCH ×3 (08:24→23:07)
[2022-07-08] MEDS: ONDANSETRON 4 MG/2 ML VIAL IVP PRN (08:24)
[2022-07-08] MEDS: THIAMINE 100 MG TAB PO SCH (08:25)
[2022-07-08] MEDS: FOLIC ACID 1 MG TAB PO SCH (08:25)
[2022-07-08] MEDS: MULTIVITAMINS, THERA 1 EACH TAB PO SCH (08:25)
[2022-07-08] MEDS: POTASSIUM CHLORIDE ER 20 MEQ TAB.ER PO SCH (08:25)
[2022-07-08] MEDS: MIDODRINE 5 MG TAB PO SCH ×3 (08:25→17:55)
[2022-07-08] MEDS: HEPARIN SODIUM,PORCINE/PF 5,000 UNIT/0.5 ML SYRINGE SQ SCH ×3 (08:25→23:23)
[2022-07-08] MEDS ORDERED: Magnesium Replacement Protocol 1 EACH MISC MISCELLANE PRN (10:04)
[2022-07-08] MEDS ORDERED: Potassium Replacement Protocol 1 EACH MISC MISCELLANE PRN (10:04)
--- NOTE | 2022-07-08 11:24 | P.PN ---
Subjective Progress Note Date: 07/08/22 Follow-up for hyponatremia. Feels better. No nausea vomiting diarrhea. Objective - Vital Signs Vital signs: Vital Signs Temp 98.2 F 07/08/22 08:00 Pulse 74 07/08/22 08:00 Resp 18 07/08/22 08:00 BP 137/85 07/08/22 08:00 Pulse Ox 96 07/08/22 08:00 FiO2 Intake & Output 07/07/22 07/08/22 07/08/22 18:59 06:59 18:59 Output Total 1 Balance -1 Output: Stool 1 Other: Voiding Method Indwelling Catheter Indwelling Catheter Diaper # Voids 4 - Exam No acute distress S1-S2 heard Lungs clear Trace edema - Labs CBC & Chem 7: 07/05/22 06:46 07/07/22 20:50 Labs: Abnormal Lab Results - Last 24 Hours (Table) 07/07/22 07/07/22 Range/Units 10:50 20:50 Sodium 127 L (137-145) mmol/L Potassium 2.6 L* 3.4 L (3.5-5.1) mmol/L Chloride 88 L (98-107) mmol/L Glucose 101 H (74-99) mg/dL Calcium 8.2 L (8.4-10.2) mg/dL Magnesium 1.3 L (1.6-2.3) mg/dL Assessment and Plan Assessment: #1 hypervolemic hyponatremia. #2 EtOH abuse with alcoholic hepatitis. #3 hypertension essential. #4 decompensated liver disease with ascites status post paracentesis #5 hypokalemia secondary to renal loss from diuretics Plan: #1 Lasix and yesterday. #2 replace potassium #3 no new labs today, check labs in the morning #4 avoid nephrotoxic agents.
[2022-07-08 11:25] LABS: Basophils # (A) 0.02 X 10*3/uL (0.00-0.10); Basophils % (A) 0.2 %; Eosinophils # (A) 0.08 X 10*3/uL (0.04-0.35); Eosinophils % (A) 0.8 %; HCT 30.5 % (37.2-46.3); HGB 11.1 g/dL (12.0-15.0); Immature Grans, Automated 0.6 %; Lymphocytes # (A) 1.24 X 10*3/uL (0.90-5.00); Lymphocytes % (A) 11.9 %; MCH 37.6 pg (27.0-32.0); MCHC 36.4 g/dL (32.0-37.0); MCV 103.4 fL (80.0-97.0); Mean Platelet Volume 9.8 fL (9.5-12.2); Monocytes # (A) 1.14 X 10*3/uL (0.20-1.00); Monocytes % (A) 10.9 %; NRBC Per 100 WBC 0 /100 WBCS (0.0-0.0); Neutrophils # (A) 7.92 X 10*3/uL (1.80-7.70); Neutrophils % (A) 75.6 %; Platelet Count 129 X 10*3/uL (140-440); RBC 2.95 X 10*6/uL (4.10-5.20); RDW 15.5 % (11.5-14.5); WBC 10.46 X 10*3/uL (4.50-10.00)
[2022-07-08 11:37] LABS: Magnesium 1.9 mg/dL (1.5-2.4)
[2022-07-08 11:51] LABS: African American GFR (CKD) 112.6 (60.0-200.0); Albumin 2.7 g/dL (3.8-4.9); Albumin/Globulin Ratio 1.11 (1.60-3.17); Anion Gap 7.8 mmol/L (10.00-18.00); BUN/Creat Ratio 20.04 Ratio (12.00-20.00); Blood Urea Nitrogen 9.7 mg/dL (9.0-27.0); Calcium 8.1 mg/dL (8.7-10.3); Carbon Dioxide 27.4 mmol/L (20.0-27.5); Globulin 2.4 g/dL (1.6-3.3); Non-African American GFR(CKD) 97.1 (60.0-200.0); Potassium 3.6 mmol/L (3.5-5.5); Total Bilirubin 3.7 mg/dL (0.30-1.20)
--- NOTE | 2022-07-08 13:22 | P.PN ---
Subjective Progress Note Date: 07/08/22 Principal diagnosis: Hyponatremia, alcoholic liver disease. The patient is seen today 07/02/2022 in follow-up in the intensive care unit. She is currently resting comfortably in bed. Awake and alert in no acute distress. Still somewhat slow to respond. She does admit to drinking 3 glasses of wine daily. She remains in the CIWA protocol. She is continued on a Lasix drip at 10 mg per hour. She remains on antibiotics in the form of ceftriaxone. Continued on sodium bicarbonate tablets. Current sodium 125. Potassium 2.6. Chloride 87. BUN 1915. Creatinine 0.69. Potassium is being replaced. She is maintaining good O2 saturations in the mid to upper 90s on room air. Afebrile. Hemodynamically stable. The patient is seen today 07/03/2022 and a follow-up on the regular medical floor. She is currently resting comfortably in bed. Awake and alert in no acute distress. Maintaining O2 saturations in the 90s on room air. No IV fluids. Off the Lasix drip. Currently in a 3.1 L negative balance. She is a bit jaundice. She remains in the CIWA protocol. Remains on Solu-Cortef. White count 7.8. Hemoglobin 10.4. Platelet count 85,000. Sodium 129. Potassium 3.9. BUN 14. Creatinine 0.7. Urine culture positive for E. coli. Remains on ceftriaxone. The patient is seen today 07/04/2022 in follow-up on the regular medical floor. Awake and alert in no acute distress. Resting comfortably in bed. Maintaining O2 saturations in the 90s on room air. Working with physical therapy. Chest x- ray reveals a left lower lobe small effusions/atelectasis. Urine culture had been positive for E. coli. White count 9.9. Hemoglobin 10.4. Platelets 90,000. Sodium 127. Potassium 3.5. BUN 13. Creatinine 0.7. AST 141. ALT 67. She remains on ceftriaxone. Continued on a Lasix drip at 10 mg per hour. Heparin for DVT prophylaxis. Remains in the CIWA protocol. Remains in a negative balance. Progress note dated 07/05/2022. The patient is again seen in room 459. The patient is currently not on any supplemental oxygen. She's not receiving any IV fluids. The Lasix drip has been discontinued. She still has lower extremity edema, 2+ on examination. She denies any shortness of breath or difficulty breathing. Labs today include a white count of 9.53, hemoglobin 10.5, hematocrit 28.9, and a platelet count of 205,000. PT was 17.4 with an INR 1.62. Sodium 124, potassium 3, chloride 88, CO2 29, with a normal BUN and creatinine. Urine sample from June 27 was positive for Escherichia coli. No recent chest x-rays to review. Progress note dated 07/06/2022. The patient is again seen today in room 459. She's not requiring any suppleme ntal oxygen. The patient is not receiving any IV fluids. She looks reasonably comfortable. She does appear to be weak. She still has some scleral icterus. Labs today include a white count of 10.5, hemoglobin 11.1, hematocrit 30.5, and a platelet count of 129,000. Sodium is 124, potassium is 3.6, chlorides 89, CO2 27, BUN of 10, and creatinine 0.5. Calcium 8.1. Total bilirubin is 3.7. AST is 101, and ALT is 55. Objective - Vital Signs Vital signs: Vital Signs Temp 98.2 F 07/08/22 08:00 Pulse 74 07/08/22 08:00 Resp 18 07/08/22 08:00 BP 137/85 07/08/22 08:00 Pulse Ox 96 07/08/22 08:00 FiO2 Intake & Output 07/07/22 07/08/22 07/08/22 18:59 06:59 18:59 Output Total 1 Balance -1 Output: Stool 1 Other: Voiding Method Indwelling Catheter Indwelling Catheter Diaper # Voids 4 - Exam No acute distress, confused, currently on no supplemental oxygen. Saturations are 96%. HEENT examination is grossly unremarkable. Scleral icterus is noted. Neck supple. Full range of motion. No adenopathy thyromegaly or neck vein distention. Cardiovascular examination reveals regular rhythm rate. S1-S2 normal. No S3 or S4. No discernible murmur noted. Heart rate 74 bpm. Lungs reveal clear breath sounds. Breath sounds are equal bilaterally. No adventitious lung sounds including wheezes rhonchi or crackles. Abdomen soft bowel sounds are heard. No masses or tenderness. Extremities are intact. No cyanosis or clubbing. 1+ pitting edema is noted in the lower extremities. Skin is without rash or lesion. Neurologic examination is brief but nonfocal. - Labs CBC & Chem 7: 07/08/22 06:46 07/08/22 06:46 Labs: Abnormal Lab Results - Last 24 Hours (Table) 07/07/22 07/08/22 07/08/22 Range/Units 20:50 06:46 06:46 WBC 10.46 H (4.50-10.00) X 10*3/uL RBC 2.95 L (4.10-5.20) X 10*6/uL Hgb 11.1 L (12.0-15.0) g/dL Hct 30.5 L (37.2-46.3) % MCV 103.4 H (80.0-97.0) fL MCH 37.6 H (27.0-32.0) pg RDW 15.5 H (11.5-14.5) % Plt Count 129 L (140-440) X 10*3/uL Immature Gran # 0.06 H (0.00-0.04) X 10*3/uL Neutrophils # 7.92 H (1.80-7.70) X 10*3/uL Monocytes # 1.14 H (0.20-1.00) X 10*3/uL Sodium 124 L (135-145) mmol/L Potassium 3.4 L (3.5-5.1) mmol/L Chloride 89 L (96-109) mmol/L Anion Gap 7.80 L (10.00-18.00) mmol/L Creatinine 0.5 L (0.6-1.5) mg/dL BUN/Creatinine Ratio 20.04 H (12.00-20.00) Ratio Calcium 8.1 L (8.7-10.3) mg/dL Total Bilirubin 3.70 H (0.30-1.20) mg/dL AST 101 H (13-35) U/L ALT 55 H (8-44) U/L Total Protein 5.0 L (6.2-8.2) g/dL Albumin 2.7 L (3.8-4.9) g/dL Albumin/Globulin Ratio 1.11 L (1.60-3.17) g/dL Assessment and Plan Assessment: Severe hyponatremia secondary to excessive alcohol use, poor salt intake, and excessive fluid intake. Alcoholism. Suspect liver cirrhosis and ascites. Benign essential hypertension. Hypomagnesemia. Alcoholic hepatitis. Acute urinary tract infection secondary to E. coli. Plan: Plan dated 07/05/2022. From the pulmonary standpoint, the patient's doing well. The patient is continuing on antibiotic for her E. coli urinary tract infection. The patient denies any shortness of breath, difficulty breathing, cough, wheezing, or phlegm production. She still has lower extremity edema. That's being addressed by the primary service. She remains on lactulose. We will continue to follow make recommendations along the way. Plan dated 07/08/2022. The patient continues to improve. Hopeful discharge soon. Labs, x-rays, and medications are reviewed. We will continue to follow and make recommendations along the way. Respiratory status and hemodynamics status are both stable. Prognosis is guarded. She is receiving Rocephin for her urinary tract infection. Time with Patient: Less than 30
--- NOTE | 2022-07-08 19:14 | PN ---
PROGRESS NOTE SUBJECTIVE: This is a 71-year-old woman who was admitted with multiple medical issues including hyponatremia, is being closely monitored. The patient is much more alert. No chest pain. No palpitation. PHYSICAL EXAMINATION: VITAL SIGNS: Pulse 74, blood pressure , respiration 18. CHEST: Clear to auscultation. CARDIOVASCULAR: S1, S2 muffled. ABDOMEN: Soft, ascites. NERVOUS SYSTEM: Nonfocal. LABS: Sodium 127, potassium 2.0. The rest of the labs are noted. ASSESSMENT: 1. Hyponatremia, likely due to hypo-osmolar and diminished p.o. intake. 2. Intractable nausea, vomiting. 3. Acute alcohol withdrawal. 4. Acute alcoholic hepatitis. 5. Ascites. 6. Multiple medical issues. RECOMMENDATIONS: To continue current medications and symptomatic treatment otherwise. Replace potassium. Repeat labs. Closely monitor. Further recommendations to follow. ELISABET / MT: [id number] /
[2022-07-09] MEDS: MIDODRINE 5 MG TAB PO SCH ×3 (06:55→17:11)
[2022-07-09] MEDS: POTASSIUM CHLORIDE ER 20 MEQ TAB.ER PO SCH (07:04)
[2022-07-09] MEDS: HEPARIN SODIUM,PORCINE/PF 5,000 UNIT/0.5 ML SYRINGE SQ SCH ×2 (07:04→17:11)
[2022-07-09] MEDS: FOLIC ACID 1 MG TAB PO SCH (07:04)
[2022-07-09] MEDS: THIAMINE 100 MG TAB PO SCH (07:04)
[2022-07-09] MEDS: LACTULOSE 20 GM/30 ML CUP PO SCH ×2 (07:05→16:05)
[2022-07-09] MEDS: MULTIVITAMINS, THERA 1 EACH TAB PO SCH (07:05)
[2022-07-09] MEDS: PANTOPRAZOLE 40 MG/10 ML VIAL IVP SCH (07:16)
[2022-07-09 09:00] LABS: Basophils # (A) 0.02 X 10*3/uL (0.00-0.10); Basophils % (A) 0.2 %; Eosinophils % (A) 0.9 %; HCT 30.2 % (37.2-46.3); HGB 10.7 g/dL (12.0-15.0); Immature Grans, Automated 0.7 %; Lymphocytes # (A) 1.13 X 10*3/uL (0.90-5.00); Lymphocytes % (A) 9.6 %; MCH 38.1 pg (27.0-32.0); MCHC 35.4 g/dL (32.0-37.0); MCV 107.5 fL (80.0-97.0); Mean Platelet Volume 9.9 fL (9.5-12.2); Monocytes # (A) 1.13 X 10*3/uL (0.20-1.00); Monocytes % (A) 9.6 %; NRBC Per 100 WBC 0.2 /100 WBCS (0.0-0.0); Neutrophils # (A) 9.27 X 10*3/uL (1.80-7.70); Platelet Count 145 X 10*3/uL (140-440); RBC 2.81 X 10*6/uL (4.10-5.20); RDW 15.2 % (11.5-14.5); WBC 11.73 X 10*3/uL (4.50-10.00)
[2022-07-09 09:04] LABS: Magnesium 1.7 mg/dL (1.5-2.4)
[2022-07-09 09:26] LABS: African American GFR (CKD) 111.3 (60.0-200.0); Anion Gap 6.2 mmol/L (10.00-18.00); Blood Urea Nitrogen 7.5 mg/dL (9.0-27.0); Calcium 8.1 mg/dL (8.7-10.3); Carbon Dioxide 28.8 mmol/L (20.0-27.5); Potassium 3.8 mmol/L (3.5-5.5)
--- NOTE | 2022-07-09 10:08 | PN ---
PROGRESS NOTE SUBJECTIVE: This is a 71-year-old woman, who was admitted with hyponatremia, also intractable nausea, vomiting. The patient's sensorium is improving. No chest pain. No palpitations. ECF rehab is being contemplated. PHYSICAL EXAMINATION: VITAL SIGNS: Pulse 85, blood pressure 140/82, respirations 18. CHEST: Clear to auscultation. CARDIOVASCULAR: S1 and S2. ABDOMEN: Soft. NERVOUS SYSTEM: No focal deficits. LABS: Sodium 124. ASSESSMENT: 1. Hyponatremia, possibly hypo-osmolar with decreased p.o. intake. 2. Intractable nausea, vomiting. 3. Acute alcohol withdrawal syndrome. 4. Acute alcoholic hepatitis. 5. Ascites. 6. Multiple medical issues. RECOMMENDATIONS AND DISCUSSION: Recommend to continue current management and symptomatic treatment. Otherwise, closely follow along with Nephrology. We will order repeat labs tomorrow and PT, OT evaluation, possible ECF rehab. Further recommendations to follow. MMJOSETTE / GARLANDN: [id number] /
[2022-07-09] MEDS: MAGNESIUM OXIDE 400 MG TAB PO SCH (11:47)
--- NOTE | 2022-07-09 11:49 | P.PN ---
Subjective Patient is seen in follow-up for hyponatremia. Sodium level 123 this morning. Has been voiding. Urine output not documented accurately. Underwent paracentesis this admission with 3 L drained. Oral intake is poor. Vital signs are stable. General: No acute distress. HEENT: Head exam is unremarkable. LUNGS: Breath sounds decreased. HEART: Regular rate and rhythm. ABDOMEN: Soft, distention noted. EXTREMITITES: 1+ edema. Objective - Vital Signs Vital signs: Vital Signs Temp 98.0 F 07/09/22 06:56 Pulse 92 07/09/22 06:56 Resp 17 07/09/22 07:32 BP 132/76 07/09/22 06:56 Pulse Ox 93 L 07/09/22 06:56 FiO2 Intake & Output 07/08/22 07/09/22 07/09/22 18:59 06:59 18:59 Output Total 1 Balance -1 Output: Stool 1 Other: Voiding Method Diaper Diaper Diaper # Voids 3 3 # Bowel Movements 4 - Labs CBC & Chem 7: 07/09/22 05:35 07/09/22 05:35 Labs: Abnormal Lab Results - Last 24 Hours (Table) 07/08/22 07/09/22 07/09/22 Range/Units 06:46 05:35 05:35 WBC 11.73 H (4.50-10.00) X 10*3/uL RBC 2.81 L (4.10-5.20) X 10*6/uL Hgb 10.7 L (12.0-15.0) g/dL Hct 30.2 L (37.2-46.3) % MCV 107.5 H (80.0-97.0) fL MCH 38.1 H (27.0-32.0) pg RDW 15.2 H (11.5-14.5) % Absolute Nucleated RBC 0.02 H (0.00-0.00) X 10*3/uL Immature Gran # 0.08 H (0.00-0.04) X 10*3/uL Neutrophils # 9.27 H (1.80-7.70) X 10*3/uL Monocytes # 1.13 H (0.20-1.00) X 10*3/uL NRBC/100 WBC Diff 0.2 H (0.0-0.0) /100 WBCS Sodium 124 L 123 L (135-145) mmol/L Chloride 89 L 88 L (96-109) mmol/L Carbon Dioxide 28.8 H (20.0-27.5) mmol/L Anion Gap 7.80 L 6.20 L (10.00-18.00) mmol/L BUN 7.5 L (9.0-27.0) mg/dL Creatinine 0.5 L 0.5 L (0.6-1.5) mg/dL BUN/Creatinine Ratio 20.04 H (12.00-20.00) Ratio Glucose 122 H (70-110) mg/dL Calcium 8.1 L 8.1 L (8.7-10.3) mg/dL Total Bilirubin 3.70 H (0.30-1.20) mg/dL AST 101 H (13-35) U/L ALT 55 H (8-44) U/L Total Protein 5.0 L (6.2-8.2) g/dL Albumin 2.7 L (3.8-4.9) g/dL Albumin/Globulin Ratio 1.11 L (1.60-3.17) g/dL Assessment and Plan Plan: Assessment: 1. Hyponatremia secondary to poor solute intake/excessive fluid intake. Hypervolemic. Sodium level 123 this morning. Cortisol level not low. TSH is 6.7. 2. Alcohol abuse. Concern for alcoholic hepatitis. GI following. CT of the abdomen and pelvis suggestive of hepatitis versus cirrhosis. No hydronephrosis noted. 3. Benign hypertension. Controlled. 4. Ascites noted on CAT scan. Status post paracentesis on 06/28/2022 to 3 L drained. 5. Hypomagnesemia from poor intake. Replaced. Improved. 6. Volume overload. 7. Metabolic acidosis, resolved. Plan: Samsca 15 mg once today. Repeat abdominal ultrasound to check for ascites. Add spironolactone 25 mg once daily. Maintain fluid restriction. Encouraged oral intake. Repeat labs in the morning.
[2022-07-09] MEDS ORDERED: TOLVAPTAN 15 MG 1/2 TABLET PO ONE (12:00)
[2022-07-09] MEDS: SPIRONOLACTONE 25 MG TAB PO SCH (12:37)
--- NOTE | 2022-07-09 12:47 | US ---
EXAMINATION TYPE: US abdomen limited DATE OF EXAM: 07/09/2022 COMPARISON: US CLINICAL HISTORY: ascites. Ascites Scanned all four quadrants of the abdomen. Ascites visualized throughout the abdomen. IMPRESSION: Moderate ascites. Limited abdomen ultrasound.
[2022-07-09] MEDS: ALBUMIN HUMAN 25% 50 ML in EMPTY BAG 1 BAG IVPB SCH ×4 (14:18→17:46)
--- NOTE | 2022-07-09 16:09 | P.PN ---
Subjective Progress Note Date: 07/09/22 On today's evaluation of 07/09/2020, the patient has normocytic history complaints. Abdomen is slightly distended and another ultrasound was obtained which will again revealed some ascites. Otherwise, the patient continues to have some increased lower oximetry edema and I also noted this in the past inv olving the dorsal aspect of the left lower extremity. For that reason, the patient was started on IV Rocephin. No signs of any acute hepatic encephalopathy. The patient has stigmata of chronic liver failure and liver cirrhosis. No signs of any delirium tremens for now. The patient had a blood w ork that showed a white cell count of 11.7 with a hemoglobin of 10.7 and a platelet count of 145. Sodium is at 123, potassium level is at 3.8, chloride is 88 and the patient has normal renal function and a creatinine of 0.4. Sodium level remains obviously low. Objective - Vital Signs Vital signs: Vital Signs Temp 98.0 F 07/09/22 06:56 Pulse 92 07/09/22 06:56 Resp 17 07/09/22 07:32 BP 132/76 07/09/22 06:56 Pulse Ox 93 L 07/09/22 06:56 FiO2 Intake & Output 07/08/22 07/09/22 07/09/22 18:59 06:59 18:59 Output Total 1 Balance -1 Output: Stool 1 Other: Voiding Method Diaper Diaper Diaper # Voids 3 3 # Bowel Movements 4 - Exam No acute distress, confused, currently on no supplemental oxygen. Saturations are 96%. HEENT examination is grossly unremarkable. Scleral icterus is noted. Neck supple. Full range of motion. No adenopathy thyromegaly or neck vein distention. Cardiovascular examination reveals regular rhythm rate. S1-S2 normal. No S3 or S4. No discernible murmur noted. Lungs reveal clear breath sounds. Breath sounds are equal bilaterally. No adventitious lung sounds including wheezes rhonchi or crackles. Abdomen soft bowel sounds are heard. No masses or tenderness. Extremities are intact. No cyanosis or clubbing. 1+ pitting edema is noted in the lower extremities. Skin is without rash or lesion. Neurologic examination is brief but nonfocal. - Labs CBC & Chem 7: 07/09/22 05:35 07/09/22 05:35 Labs: Abnormal Lab Results - Last 24 Hours (Table) 07/09/22 07/09/22 Range/Units 05:35 05:35 WBC 11.73 H (4.50-10.00) X 10*3/uL RBC 2.81 L (4.10-5.20) X 10*6/uL Hgb 10.7 L (12.0-15.0) g/dL Hct 30.2 L (37.2-46.3) % MCV 107.5 H (80.0-97.0) fL MCH 38.1 H (27.0-32.0) pg RDW 15.2 H (11.5-14.5) % Absolute Nucleated RBC 0.02 H (0.00-0.00) X 10*3/uL Immature Gran # 0.08 H (0.00-0.04) X 10*3/uL Neutrophils # 9.27 H (1.80-7.70) X 10*3/uL Monocytes # 1.13 H (0.20-1.00) X 10*3/uL NRBC/100 WBC Diff 0.2 H (0.0-0.0) /100 WBCS Sodium 123 L (135-145) mmol/L Chloride 88 L (96-109) mmol/L Carbon Dioxide 28.8 H (20.0-27.5) mmol/L Anion Gap 6.20 L (10.00-18.00) mmol/L BUN 7.5 L (9.0-27.0) mg/dL Creatinine 0.5 L (0.6-1.5) mg/dL Glucose 122 H (70-110) mg/dL Calcium 8.1 L (8.7-10.3) mg/dL Assessment and Plan Plan: Severe hyponatremia secondary to excessive alcohol use. Sodium level remains low at 123. This is consistent with chronic hyponatremia related to liver cirrhosis. Alcoholism. Suspect liver cirrhosis and ascites. Benign essential hypertension. Hypomagnesemia. Alcoholic hepatitis. Acute urinary tract infection secondary to E. coli. acute cellulitis, left foot with erythema and redness and swelling Plan: IV Rocephin Fluid restriction Repeat ultrasound of the abdomen was done and the patient will be offered another /paracentesis Monitor electrolytes We'll follow
--- NOTE | 2022-07-09 16:23 | US ---
EXAMINATION TYPE: US paracentesis abd w/image DATE OF EXAM: 07/09/2022 COMPARISON: NONE HISTORY: Ascites. PROCEDURE: Maximal barrier technique was utilized. The skin overlying a suitable pocket of fluid was localized with ultrasound and the overlying skin was prepped and draped. Ultrasound was utilized with sterile technique. Lidocaine was used for local anesthesia and a skin delmar made with a scalpel. Catheter was advanced under direct ultrasound guidance into a suitable pocket of fluid and approximately 4.3 liter s of ascites fluid were removed. Catheter was withdrawn and hemostasis achieved. There is no immedi ate complication; the patient is discharged in stable condition. IMPRESSION: STATUS POST ULTRASOUND GUIDED PARACENTESIS FOR PALLIATION OF ASCITES. THIS PROCEDURE WA S PERFORMED BY THE UNDERSIGNED.
--- NOTE | 2022-07-09 16:39 | P.PN ---
Subjective Progress Note Date: 07/09/22 This is a 71-year-old female who was recently brought to the emergency room with nausea and vomiting and generalized weakness and having decreased urine output and increase in abdominal distention. Patient does have past medical history of rheumatoid arthritis and daily alcohol use and CT of the abdomen showed a heterogenicity of the liver which appears new and could be related to hepatitis or cirrhosis with a moderate abdominal ascites noted and sigmoid diverticulosis. Multiple medical consultations including pulmonary, GI, nephrology following and patient was maintained in the ICU for quite some time on hypertonic solution. Patient continues on Lasix drip along with antibiotics. Patient con tinues to be extremely lethargic and will continue with lactulose 20 mg twice a day. Patient was started on antibiotics for UTI. Multiple electrolyte abnormalities as well and sodium is 127 today. Potassium is 3.5, current creatinine is 0.7 and total bili is 3.7. Recommend repeat labs. 07/05/2021 Patient is seen today in follow up and is currently sitting up in the chair and mentation is somewhat improved. Patient sodium continued to be low and nephrology following . Planning ecf and case management following. Patient is off lasix drip maintained on IV push Lasix with nephrology following. Recommend repeat labs in the a.m. Patient continues on ceftriaxone with urine cultures finalizing E. coli and will continue short course of oral antibiotics on discharge. Case management is following and working on accepting facilities with insurance authorization. Encouraged oral intake and continued physical therapy daily. Potassium again low at 3.0 and will replace per protocol and will add daily supplements. Recommend to replace as needed. Patient to be given a dose of samsca per nephrology. Recommend [place] catheter removal as well. 07/06/2022 Patient is seen and evaluated in follow-up today currently sitting up in the chair more awake and alert and appropriate to commands and questions. Patient continues with some confusion although much more appropriate today. Patient is maintained on IV antibiotics in the form of ceftriaxone and urine culture has finalized with E. coli with sensitivities and will continue for now. Patient is being followed closely by nephrology and maintained on IV push Lasix recommending another 24 hours and close monitoring of kidney functions along with electrolytes. Patient was given a dose of Samsca yesterday again today and current sodium mildly elevated up to 128 today. Potassium remains low at 3.2 and will replace per protocol and recommend daily supplementation of potassium. Patient is afebrile with no reports of nausea or vomiting noted. Recommend fluid restrictions as well. Recommend PT/OT therapy daily. Case management following as well as patient will likely need ECF for continued weakness. Patient and family are agreeable with this plan. 07/09/2022 Patient is seen and evaluated in follow-up this morning mentation improving and being followed by nephrology. Patient's sodium back down to 123 with a potassium at 3.8 mL was also found to be low at 1.7. Oral intake is fair to poor and not eating very well. Patient ammonia level within normal limits and will titrate the dose down to daily and monitor for at least 2-3 bowel movements. Patient also with some abdominal distention today and ultrasound of the abdomen was ordered for possible paracentesis. Patient did receive a previous paracentesis on this admission. Will await report. Patient continues with weakness and being followed by physical therapy daily encouraged increased activity as tolerated. Case management is following working on an accepting facility. Patient has received adequate amount of IV antibiotics for UTI E. coli and will discontinue ceftriaxone at this time. Recommend repeat labs and will continue to monitor the patient closely. Review of systems: Constitutional: No reports of fatigue, fever, or chills Cardiovascular: No reports of chest pain or palpitations Respiratory: No reports of shortness of breath or cough GI: No reports of nausea, vomiting, reports multiple loose bowel movements, poor oral intake : No reports of dysuria or retention Neurovascular: reports of generalized weakness All medications have been reviewed Active Medications Folic Acid (Folic Acid 1 Mg Tab) 1 mg PO DAILY [facility] Last Admin: 07/09/22 07:04 Dose: 1 mg Heparin Sodium (Porcine) (Heparin Sodium,Porcine/Pf 5,000 Unit/0.5 Ml Syringe) 5,000 unit SQ Q8HR [facility] Last Admin: 07/09/22 07:04 Dose: 5,000 unit Ceftriaxone Sodium 1 gm/ (Sodium Chloride) 50 mls @ 100 mls/hr IVPB Q24HR [facility]; Protocol Last Admin: 07/09/22 13:50 Dose: 100 mls/hr Lactulose (Lactulose 20 Gm/30 Ml Cup) 30 gm PO TID [facility] Last Admin: 07/09/22 16:05 Dose: Not Given Lorazepam (Lorazepam 1 Mg/0.5 Ml Vial) 1 mg IV Q1HR PRN PRN Reason: CIWA 10 to 15 Last Admin: 06/30/22 23:41 Dose: 1 mg Lorazepam (Lorazepam 1 Mg/0.5 Ml Vial) 1 mg IV Q2HR PRN PRN Reason: CIWA 8 or 9 Last Admin: 06/30/22 05:16 Dose: 1 mg Magnesium Oxide (Magnesium Oxide 400 Mg Tab) 400 mg PO DAILY [facility] Last Admin: 07/09/22 11:47 Dose: 400 mg Midodrine (Midodrine 5 Mg Tab) 10 mg PO AC-TID [facility] Last Admin: 07/09/22 12:36 Dose: Not Given Miscellaneous Information (Magnesium Replacement Protocol 1 Each Misc) 1 each MISCELLANE DAILY PRN; Protocol PRN Reason: Per Protocol Morphine Sulfate (Morphine Sulfate 4 Mg/Ml Syringe) 4 mg IV Q2HR PRN PRN Reason: Pain Scale 8 to 10 Last Admin: 07/06/22 06:17 Dose: 4 mg Multivitamins (Multivitamins, Thera 1 Each Tab) 1 each PO DAILY [facility] Last Admin: 07/09/22 07:05 Dose: 1 each Naloxone HCl (Naloxone 0.4 Mg/Ml 1 Ml Vial) 0.2 mg IV Q2M PRN PRN Reason: Opioid Reversal Ondansetron HCl (Ondansetron 4 Mg/2 Ml Vial) 4 mg IVP Q6HR PRN PRN Reason: Nausea And Vomiting Last Admin: 07/08/22 08:24 Dose: 4 mg Pantoprazole Sodium (Pantoprazole 40 Mg/10 Ml Vial) 40 mg IVP DAILY [facility] Last Admin: 07/09/22 07:16 Dose: 40 mg Potassium Chloride (Potassium Chloride Er 20 Meq Tab.Er) 20 meq PO DAILY [facility] Last Admin: 07/09/22 07:04 Dose: 20 meq Spironolactone (Spironolactone 25 Mg Tab) 25 mg PO DAILY [facility] Last Admin: 07/09/22 12:37 Dose: 25 mg Thiamine HCl (Thiamine 100 Mg Tab) 100 mg PO DAILY [facility] Last Admin: 07/09/22 07:04 Dose: 100 mg PHYSICAL EXAMINATION: GENERAL: The patient is more awake and sitting up in the chair today, continues to be more alert each day, Well developed, well nourished. HEENT: Pupils are round and equally reacting to light. EOMI. scleral icterus. No conjunctival pallor. Normocephalic, atraumatic. No pharyngeal erythema. No thyromegaly. CARDIOVASCULAR: S1 and S2 muffled PULMONARY: diminished breath sounds bilaterally with no wheezing or rhonchi noted. ABDOMEN: soft. Nontender on exam. obese. non-distended, normoactive bowel sounds. No palpable organomegaly. MUSCULOSKELETAL: No joint swelling or deformity. EXTREMITIES: No cyanosis, clubbing, or pedal edema. NEUROLOGICAL: Gross neurological examination did not reveal any focal deficits. Diffuse weakness SKIN: No rashes. Assessment: Hyponatremia likely hypoosmolar with decreased oral intake. Intractable nausea and vomiting and decreased oral intake, nausea and vomiting has improved Acute alcohol withdrawal symptoms, currently no signs of withdrawal Acute alcoholic hepatitis Ascites E. coli urinary tract infection, treated adequately and discontinuing IV ceftriaxone Liver cirrhosis likely alcohol related Hyperbilirubinemia Alcohol abuse Hypomagnesemia 0.9 Macrocytosis MCV 107.0 due to alcohol abuse GI prophylaxis DVT prophylaxis Full code Plan: Recommend to continue with current medications and management with nephrology following closely. Patient continues on antibiotics for acute urinary tract infection and urine cultures have finalized with E. coli and has received adequate dosing of IV ceftriaxone and will continue IV antibiotics at this time. Continue with lactulose although will titrate the dose down to daily as patient has been having multiple bowel movements and ammonia levels within normal limits. Sodium is down to 123 today with nephrology following. Patient's abdomen is distended and ultrasound of the abdomen is ordered and pending for possible paracentesis. Patient is more awake and sitting up in the chair today. Recommend to replace electrolytes per protocol and close monitoring. Case management is following working on accepting facility for ECF for continued PT/OT therapy. Due to multiple complex medical issues, prognosis is guarded. The impression and plan of care has been dictated by Bee Pichardo nurse practitioner as directed. MD Deborah I have performed a history and examination and MDM of this patient, discussed the same with the dictator, and agree with the dictator's assessment and plan as written ,documented as a scribe. Based on total visit time, I have performed more than 50% of the visit. Any additional findings or plans will be noted. Objective - Vital Signs Vital signs: Vital Signs Temp 98.0 F 07/09/22 06:56 Pulse 92 07/09/22 06:56 Resp 17 07/09/22 07:32 BP 132/76 07/09/22 06:56 Pulse Ox 93 L 07/09/22 06:56 FiO2 Intake & Output 07/08/22 07/09/22 07/09/22 18:59 06:59 18:59 Output Total 1 Balance -1 Output: Stool 1 Other: Voiding Method Diaper Diaper Diaper # Voids 3 3 # Bowel Movements 4 - Labs CBC & Chem 7: 07/09/22 05:35 07/09/22 05:35 Labs: Abnormal Lab Results - Last 24 Hours (Table) 07/08/22 07/08/22 07/09/22 Range/Units 06:46 06:46 05:35 WBC 10.46 H 11.73 H (4.50-10.00) X 10*3/uL RBC 2.95 L 2.81 L (4.10-5.20) X 10*6/uL Hgb 11.1 L 10.7 L (12.0-15.0) g/dL Hct 30.5 L 30.2 L (37.2-46.3) % MCV 103.4 H 107.5 H (80.0-97.0) fL MCH 37.6 H 38.1 H (27.0-32.0) pg RDW 15.5 H 15.2 H (11.5-14.5) % Plt Count 129 L (140-440) X 10*3/uL Absolute Nucleated RBC 0.02 H (0.00-0.00) X 10*3/uL Immature Gran # 0.06 H 0.08 H (0.00-0.04) X 10*3/uL Neutrophils # 7.92 H 9.27 H (1.80-7.70) X 10*3/uL Monocytes # 1.14 H 1.13 H (0.20-1.00) X 10*3/uL NRBC/100 WBC Diff 0.2 H (0.0-0.0) /100 WBCS Sodium 124 L (135-145) mmol/L Chloride 89 L (96-109) mmol/L Carbon Dioxide (20.0-27.5) mmol/L Anion Gap 7.80 L (10.00-18.00) mmol/L BUN (9.0-27.0) mg/dL Creatinine 0.5 L (0.6-1.5) mg/dL BUN/Creatinine Ratio 20.04 H (12.00-20.00) Ratio Glucose (70-110) mg/dL Calcium 8.1 L (8.7-10.3) mg/dL Total Bilirubin 3.70 H (0.30-1.20) mg/dL AST 101 H (13-35) U/L ALT 55 H (8-44) U/L Total Protein 5.0 L (6.2-8.2) g/dL Albumin 2.7 L (3.8-4.9) g/dL Albumin/Globulin Ratio 1.11 L (1.60-3.17) g/dL 07/09/22 Range/Units 05:35 WBC (4.50-10.00) X 10*3/uL RBC (4.10-5.20) X 10*6/uL Hgb (12.0-15.0) g/dL Hct (37.2-46.3) % MCV (80.0-97.0) fL MCH (27.0-32.0) pg RDW (11.5-14.5) % Plt Count (140-440) X 10*3/uL Absolute Nucleated RBC (0.00-0.00) X 10*3/uL Immature Gran # (0.00-0.04) X 10*3/uL Neutrophils # (1.80-7.70) X 10*3/uL Monocytes # (0.20-1.00) X 10*3/uL NRBC/100 WBC Diff (0.0-0.0) /100 WBCS Sodium 123 L (135-145) mmol/L Chloride 88 L (96-109) mmol/L Carbon Dioxide 28.8 H (20.0-27.5) mmol/L Anion Gap 6.20 L (10.00-18.00) mmol/L BUN 7.5 L (9.0-27.0) mg/dL Creatinine 0.5 L (0.6-1.5) mg/dL BUN/Creatinine Ratio (12.00-20.00) Ratio Glucose 122 H (70-110) mg/dL Calcium 8.1 L (8.7-10.3) mg/dL Total Bilirubin (0.30-1.20) mg/dL AST (13-35) U/L ALT (8-44) U/L Total Protein (6.2-8.2) g/dL Albumin (3.8-4.9) g/dL Albumin/Globulin Ratio (1.60-3.17) g/dL
[2022-07-10] MEDS: HEPARIN SODIUM,PORCINE/PF 5,000 UNIT/0.5 ML SYRINGE SQ SCH ×4 (00:34→23:29)
[2022-07-10] MEDS: FOLIC ACID 1 MG TAB PO SCH (07:12)
[2022-07-10] MEDS: THIAMINE 100 MG TAB PO SCH (07:12)
[2022-07-10] MEDS: MIDODRINE 5 MG TAB PO SCH ×3 (07:12→16:08)
[2022-07-10] MEDS: MULTIVITAMINS, THERA 1 EACH TAB PO SCH (07:12)
[2022-07-10] MEDS: LACTULOSE 20 GM/30 ML CUP PO SCH (07:13)
[2022-07-10] MEDS: MAGNESIUM OXIDE 400 MG TAB PO SCH (07:13)
[2022-07-10] MEDS: POTASSIUM CHLORIDE ER 20 MEQ TAB.ER PO SCH (07:13)
[2022-07-10] MEDS: SPIRONOLACTONE 25 MG TAB PO SCH (07:13)
[2022-07-10] MEDS: PANTOPRAZOLE 40 MG/10 ML VIAL IVP SCH (07:14)
--- NOTE | 2022-07-10 10:46 | P.PN ---
Subjective Patient is seen in follow-up for hyponatremia. Sodium level 123 yesterday. Morning labs pending. Has been voiding. Urine output not documented a ccurately. Underwent second paracentesis this admission yesterday was 4.3 L drained. Vital signs are stable. General: No acute distress. HEENT: Head exam is unremarkable. LUNGS: Breath sounds decreased. HEART: Regular rate and rhythm. ABDOMEN: Soft, mild distention. EXTREMITITES: Trace edema. Objective - Vital Signs Vital signs: Vital Signs Temp 98.5 F 07/10/22 08:00 Pulse 93 07/10/22 08:00 Resp 18 07/10/22 08:00 BP 116/70 07/10/22 08:00 Pulse Ox 92 L 07/10/22 08:00 FiO2 Intake & Output 07/09/22 07/10/22 07/10/22 18:59 06:59 18:59 Output Total 1 Balance -1 Output: Stool 1 Other: Voiding Method Diaper Diaper # Voids 2 # Bowel Movements 1 1 - Labs CBC & Chem 7: 07/09/22 05:35 07/09/22 05:35 Assessment and Plan Plan: Assessment: 1. Hyponatremia secondary to poor solute intake/excessive fluid intake. Hypervolemic. Sodium level 123 yesterday. Cortisol level not low. TSH is 6.7. 2. Alcohol abuse. Concern for alcoholic hepatitis. GI following. CT of the abdomen and pelvis suggestive of hepatitis versus cirrhosis. No hydronephrosis noted. 3. Benign hypertension. Controlled. 4. Ascites noted on CAT scan. Status post paracentesis on 06/28/2022 to 3 L drained. 5. Hypomagnesemia from poor intake. Replaced. Stable. On oral magnesium ox lydia. 6. Volume overload. Improved post paracentesis. 7. Metabolic acidosis, resolved. Plan: Status post Samsca given yesterday. Continue Aldactone. Add torsemide 20 mg once daily Maintain fluid restriction. Encouraged oral intake. Follow-up morning labs.
[2022-07-10 10:54] LABS: African American GFR (CKD) >90 (>60 ml/min/1.73 sqM); Anion Gap 5 mmol/L; Blood Urea Nitrogen 5 mg/dL (7-17); Calcium 8.3 mg/dL (8.4-10.2); Carbon Dioxide 31 mmol/L (22-30); Chloride 96 mmol/L (98-107); Glucose 88 mg/dL (74-99); Non-African American GFR(CKD) >90 (>60 ml/min/1.73 sqM); Sodium 132 mmol/L (137-145)
[2022-07-10] MEDS: TORSEMIDE 20 MG TAB PO SCH (11:37)
--- NOTE | 2022-07-10 13:04 | P.PN ---
Subjective Progress Note Date: 07/10/22 On today's evaluation of 07/09/2020, the patient has normocytic history complaints. Abdomen is slightly distended and another ultrasound was obtained which will again revealed some ascites. Otherwise, the patient continues to have some increased lower oximetry edema and I also noted this in the past inv olving the dorsal aspect of the left lower extremity. For that reason, the patient was started on IV Rocephin. No signs of any acute hepatic encephalopathy. The patient has stigmata of chronic liver failure and liver cirrhosis. No signs of any delirium tremens for now. The patient had a blood w ork that showed a white cell count of 11.7 with a hemoglobin of 10.7 and a platelet count of 145. Sodium is at 123, potassium level is at 3.8, chloride is 88 and the patient has normal renal function and a creatinine of 0.4. Sodium level remains obviously low. 07/10/2022, the patient is post another paracentesis with removal of 4.3 L of fluids. I started this patient on IV Rocephin yesterday due to concerns of SBP. I also noted an area of infection in the lower extremity, suggestive of cell ulitis. For that reason, she was started on IV Rocephin. She is doing well for now. No shortness of breath compared to yesterday. She remains on IV Rocephin. The blood work from today is showing a sodium level of 132, BUN is at 5 the creatinine of 0.4 and a potassium level of 4.0. The magnesium level is 1.7. The urine culture that was obtained on 06/19/2022 was positive for E. coli. No other cultures since. Objective - Vital Signs Vital signs: Vital Signs Temp 98.5 F 07/10/22 08:00 Pulse 93 07/10/22 08:00 Resp 18 07/10/22 08:00 BP 116/70 07/10/22 08:00 Pulse Ox 92 L 07/10/22 08:00 FiO2 Intake & Output 07/09/22 07/10/22 07/10/22 18:59 06:59 18:59 Output Total 1 Balance -1 Output: Stool 1 Other: Voiding Method Diaper Diaper # Voids 2 # Bowel Movements 1 1 - Exam No acute distress, confused, currently on no supplemental oxygen. Saturations are 96%. HEENT examination is grossly unremarkable. Scleral icterus is noted. Neck supple. Full range of motion. No adenopathy thyromegaly or neck vein distention. Cardiovascular examination reveals regular rhythm rate. S1-S2 normal. No S3 or S4. No discernible murmur noted. Lungs reveal clear breath sounds. Breath sounds are equal bilaterally. No adventitious lung sounds including wheezes rhonchi or crackles. Abdomen soft bowel sounds are heard. No masses or tenderness. Extremities are intact. No cyanosis or clubbing. 1+ pitting edema is noted in the lower extremities. Skin is without rash or lesion. Neurologic examination is brief but nonfocal. - Labs CBC & Chem 7: 07/09/22 05:35 07/10/22 06:03 Labs: Abnormal Lab Results - Last 24 Hours (Table) 07/10/22 Range/Units 06:03 Sodium 132 L (137-145) mmol/L Chloride 96 L (98-107) mmol/L Carbon Dioxide 31 H (22-30) mmol/L BUN 5 L (7-17) mg/dL Creatinine 0.43 L (0.52-1.04) mg/dL Calcium 8.3 L (8.4-10.2) mg/dL Assessment and Plan Plan: Severe hyponatremia secondary to excessive alcohol use, sodium levels improved Ascites, post another thoracentesis and removal of 4 L of fluid. The patient received significant symptomatic relief post paracentesis Alcoholism. Suspect liver cirrhosis and ascites. Benign essential hypertension. Hypomagnesemia. Alcoholic hepatitis. Acute urinary tract infection secondary to E. coli. acute cellulitis, left foot with erythema and redness and swelling Plan: Continue IV Rocephin Fluid restriction Review midodrine for blood pressure control Continue Aldactone Continue torsemide Continue lactulose for hepatic encephalopathy Monitor electrolytes We'll follow
[2022-07-11] MEDS: IBUPROFEN 400 MG TAB PO PRN ×2 (03:17→07:41)
--- NOTE | 2022-07-11 04:51 | P.PN ---
Subjective Progress Note Date: 07/10/22 This is a 71-year-old female who was recently brought to the emergency room with nausea and vomiting and generalized weakness and having decreased urine output and increase in abdominal distention. Patient does have past medical history of rheumatoid arthritis and daily alcohol use and CT of the abdomen showed a heterogenicity of the liver which appears new and could be related to hepatitis or cirrhosis with a moderate abdominal ascites noted and sigmoid diverticulosis. Multiple medical consultations including pulmonary, GI, nephrology following and patient was maintained in the ICU for quite some time on hypertonic solution. Patient continues on Lasix drip along with antibiotics. Patient con tinues to be extremely lethargic and will continue with lactulose 20 mg twice a day. Patient was started on antibiotics for UTI. Multiple electrolyte abnormalities as well and sodium is 127 today. Potassium is 3.5, current creatinine is 0.7 and total bili is 3.7. Recommend repeat labs. 07/05/2021 Patient is seen today in follow up and is currently sitting up in the chair and mentation is somewhat improved. Patient sodium continued to be low and nephrology following . Planning ecf and case management following. Patient is off lasix drip maintained on IV push Lasix with nephrology following. Recommend repeat labs in the a.m. Patient continues on ceftriaxone with urine cultures finalizing E. coli and will continue short course of oral antibiotics on discharge. Case management is following and working on accepting facilities with insurance authorization. Encouraged oral intake and continued physical therapy daily. Potassium again low at 3.0 and will replace per protocol and will add daily supplements. Recommend to replace as needed. Patient to be given a dose of samsca per nephrology. Recommend [place] catheter removal as well. 07/06/2022 Patient is seen and evaluated in follow-up today currently sitting up in the chair more awake and alert and appropriate to commands and questions. Patient continues with some confusion although much more appropriate today. Patient is maintained on IV antibiotics in the form of ceftriaxone and urine culture has finalized with E. coli with sensitivities and will continue for now. Patient is being followed closely by nephrology and maintained on IV push Lasix recommending another 24 hours and close monitoring of kidney functions along with electrolytes. Patient was given a dose of Samsca yesterday again today and current sodium mildly elevated up to 128 today. Potassium remains low at 3.2 and will replace per protocol and recommend daily supplementation of potassium. Patient is afebrile with no reports of nausea or vomiting noted. Recommend fluid restrictions as well. Recommend PT/OT therapy daily. Case management following as well as patient will likely need ECF for continued weakness. Patient and family are agreeable with this plan. 07/09/2022 Patient is seen and evaluated in follow-up this morning mentation improving and being followed by nephrology. Patient's sodium back down to 123 with a potassium at 3.8 mL was also found to be low at 1.7. Oral intake is fair to poor and not eating very well. Patient ammonia level within normal limits and will titrate the dose down to daily and monitor for at least 2-3 bowel movements. Patient also with some abdominal distention today and ultrasound of the abdomen was ordered for possible paracentesis. Patient did receive a previous paracentesis on this admission. Will await report. Patient continues with weakness and being followed by physical therapy daily encouraged increased activity as tolerated. Case management is following working on an accepting facility. Patient has received adequate amount of IV antibiotics for UTI E. coli and will discontinue ceftriaxone at this time. Recommend repeat labs and will continue to monitor the patient closely. 07/10/2022 Patient is seen this morning and more awake and alert today. Oral intake is fair and maintained on fluid restrictions. Patient is post paracentesis yesterday of about 4 L removed. Nephrology following and sodium is improved as well to 132 today post samsca. Patient was treated for UTI and abx were discontinued although resumed as her left foot is red and swollen. Will continue for now and monitor the foot. Possible cellulitis. Encouraged oral intake and increased activity as tolerated. Case management following and working on an accepting facility. Patient is afebrile and denies chest pain or shortness of breath. No reports of nausea or vomiting and tolerating diet. Continue fluid restrictions and is maintained on aldactone. Torsemide being added. Review of systems: Constitutional: No reports of fatigue, fever, or chills Cardiovascular: No reports of chest pain or palpitations Respiratory: No reports of shortness of breath or cough GI: No reports of nausea, vomiting, reports loose bowel movements, poor oral intake : No reports of dysuria or retention Neurovascular: reports of generalized weakness All medications have been reviewed PHYSICAL EXAMINATION: GENERAL: The patient is more awake and sitting up in bed today, continues to be more alert each day, Well developed, well nourished. HEENT: Pupils are round and equally reacting to light. EOMI. scleral icterus. No conjunctival pallor. Normocephalic, atraumatic. No pharyngeal erythema. No thyromegaly. CARDIOVASCULAR: S1 and S2 muffled PULMONARY: diminished breath sounds bilaterally with no wheezing or rhonchi noted. ABDOMEN: soft. Nontender on exam. obese. non-distended, normoactive bowel sounds. No palpable organomegaly. MUSCULOSKELETAL: No joint swelling or deformity. EXTREMITIES: No cyanosis, clubbing, or pedal edema. NEUROLOGICAL: Gross neurological examination did not reveal any focal deficits. Diffuse weakness SKIN: No rashes. Assessment: Hyponatremia likely hypoosmolar with decreased oral intake. Intractable nausea and vomiting and decreased oral intake, nausea and vomiting has improved Acute alcohol withdrawal symptoms, currently no signs of withdrawal Acute alcoholic hepatitis Ascites post paracentesis x2 this admission. 07-09-22 with 4 liters removed E. coli urinary tract infection, treated possible left foot cellulitis Liver cirrhosis likely alcohol related Hyperbilirubinemia Alcohol abuse Hypomagnesemia 0.9 Macrocytosis MCV 107.0 due to alcohol abuse GI prophylaxis DVT prophylaxis Full code Plan: Recommend to continue with current medications and management with nephrology following closely. Patient restarted on antibiotics for possible left foot cellulitis as it is erythematous, warm, swollen, and painful to the touch. Continue with lactulose although will titrate the dose down to daily as patient has been having multiple bowel movements and ammonia levels within normal limits. Sodium improved to 132 post samsca today with nephrology following. Patient's abdomen is distended is ordered and pending for poand is post paracen tesis with 4 liters removed. Albumin given. Patient is more awake and sitting up. Recommend to replace electrolytes per protocol and close monitoring. Patient maintained on fluid restrictions with aldactone and torsemide being added. Case management is following working on accepting facility for ECF for continued PT/OT therapy. Due to multiple complex medical issues, prognosis is guarded. The impression and plan of care has been dictated by Bee Pichardo, nurse practitioner as directed. MD Deborah I have performed a history and examination and MDM of this patient, discussed the same with the dictator, and agree with the dictator's assessment and plan as written ,documented as a scribe. Based on total visit time, I have performed more than 50% of the visit. Any additional findings or plans will be noted. Objective - Vital Signs Vital signs: Vital Signs Temp 98.5 F 07/10/22 08:00 Pulse 93 07/10/22 08:00 Resp 18 07/10/22 08:00 BP 116/70 07/10/22 08:00 Pulse Ox 92 L 07/10/22 08:00 FiO2 Intake & Output 07/09/22 07/10/22 07/10/22 18:59 06:59 18:59 Output Total 1 Balance -1 Output: Stool 1 Other: Voiding Method Diaper Diaper # Voids 2 # Bowel Movements 1 1 - Labs CBC & Chem 7: 07/09/22 05:35 07/10/22 06:03 Labs: Abnormal Lab Results - Last 24 Hours (Table) 07/10/22 Range/Units 06:03 Sodium 132 L (137-145) mmol/L Chloride 96 L (98-107) mmol/L Carbon Dioxide 31 H (22-30) mmol/L BUN 5 L (7-17) mg/dL Creatinine 0.43 L (0.52-1.04) mg/dL Calcium 8.3 L (8.4-10.2) mg/dL
[2022-07-11] MEDS: MULTIVITAMINS, THERA 1 EACH TAB PO SCH (07:40)
[2022-07-11] MEDS: POTASSIUM CHLORIDE ER 20 MEQ TAB.ER PO SCH (07:40)
[2022-07-11] MEDS: SPIRONOLACTONE 25 MG TAB PO SCH (07:40)
[2022-07-11] MEDS: MIDODRINE 5 MG TAB PO SCH ×3 (07:40→17:18)
[2022-07-11] MEDS: TORSEMIDE 20 MG TAB PO SCH (07:40)
[2022-07-11] MEDS: FOLIC ACID 1 MG TAB PO SCH (07:40)
[2022-07-11] MEDS: MAGNESIUM OXIDE 400 MG TAB PO SCH (07:40)
[2022-07-11] MEDS: THIAMINE 100 MG TAB PO SCH (07:41)
[2022-07-11] MEDS: HEPARIN SODIUM,PORCINE/PF 5,000 UNIT/0.5 ML SYRINGE SQ SCH ×2 (07:41→17:18)
[2022-07-11] MEDS: PANTOPRAZOLE 40 MG/10 ML VIAL IVP SCH (07:42)
[2022-07-11] MEDS: LACTULOSE 20 GM/30 ML CUP PO SCH ×2 (07:42→07:58)
[2022-07-11 08:08] LABS: African American GFR (CKD) >90 (>60 ml/min/1.73 sqM); Anion Gap 10 mmol/L; Blood Urea Nitrogen 7 mg/dL (7-17); Carbon Dioxide 28 mmol/L (22-30); Chloride 92 mmol/L (98-107); Glucose 105 mg/dL (74-99); Non-African American GFR(CKD) 88 (>60 ml/min/1.73 sqM); Sodium 130 mmol/L (137-145)
[2022-07-11 08:14] LABS: Calcium 8.5 mg/dL (8.4-10.2)
[2022-07-11 08:37] LABS: Magnesium 1.4 mg/dL (1.6-2.3); Potassium 3.6 mmol/L (3.5-5.1)
[2022-07-11 08:58] LABS: Glucose,Whole Blood 122 mg/dL (70-110)
[2022-07-11] MEDS ORDERED: ALPRAZolam 0.25 MG TAB PO STA (09:13)
--- NOTE | 2022-07-11 10:06 | XR ---
EXAMINATION TYPE: XR chest 1V portable DATE OF EXAM: 07/11/2022 COMPARISON: Chest x-ray 07/03/2022 HISTORY: Shortness of breath TECHNIQUE: Single frontal view of the chest is obtained. FINDINGS: There is no focal air space opacity, pleural effusion, or pneumothorax seen. The cardiac silhouette size is within normal limits. Patient is rotated. Patchy densities are present at the cost ophrenic angles. The aorta is dense. Apical scarring suspected on the right. The osseous structures are intact. IMPRESSION: Suspect there is some improvement in aeration. Minimal residual basilar atelectasis.
[2022-07-11] MEDS ORDERED: POTASSIUM CHLORIDE ER 20 MEQ TAB.ER PO STA (11:53)
--- NOTE | 2022-07-11 11:57 | P.PN ---
Subjective Patient is seen in follow-up for hyponatremia. Sodium level 130 today. Has been voiding. Incontinent. Underwent second paracentesis this admission on 07/09/2022 with 4.3 L drained. Oral intake poor. Vital signs are stable. General: No acute distress. HEENT: Head exam is unremarkable. LUNGS: Breath sounds decreased. HEART: Regular rate and rhythm. ABDOMEN: Soft, mild distention. EXTREMITITES: Trace edema. Objective - Vital Signs Vital signs: Vital Signs Temp 98.2 F 07/11/22 02:32 Pulse 84 07/11/22 08:54 Resp 18 07/11/22 08:54 BP 117/75 07/11/22 08:54 Pulse Ox 95 07/11/22 08:54 FiO2 Intake & Output 07/10/22 07/11/22 07/11/22 18:59 06:59 18:59 Intake Total 520 Output Total 5 Balance 515 Weight 80 kg Intake: Oral 520 Output: Stool 1 Urine/Stool Mix 4 Other: Voiding Method Diaper Diaper Diaper Incontinent Incontinent External Catheter # Voids 1 2 1 # Bowel Movements 10 1 - Labs CBC & Chem 7: 07/09/22 05:35 07/11/22 07:18 Labs: Abnormal Lab Results - Last 24 Hours (Table) 07/11/22 07/11/22 Range/Units 07:18 08:56 Sodium 130 L (137-145) mmol/L Chloride 92 L (98-107) mmol/L Glucose 105 H (74-99) mg/dL POC Glucose (mg/dL) 122 H (70-110) mg/dL Magnesium 1.4 L (1.6-2.3) mg/dL Assessment and Plan Plan: Assessment: 1. Hyponatremia secondary to poor solute intake/excessive fluid intake. Hypervolemic. Sodium level 130 today. Cortisol level not low. TSH is 6.7. Urine sodium less than 20 and urine osmolality 278. 2. Alcohol abuse. Concern for alcoholic hepatitis. GI following. CT of the abdomen and pelvis suggestive of hepatitis versus cirrhosis. No hydronephrosis noted. 3. Benign hypertension. Controlled. 4. Ascites noted on CAT scan. Status post paracentesis on 06/28/2022 to 3 L drained. 5. Hypomagnesemia from poor intake. Low today. 6. Volume overload. Improved post paracentesis. 7. Metabolic acidosis, resolved. Plan: Status post Samsca given 07/09/2022. Continue Aldactone. Maintain torsemide. Maintain fluid restriction. Encouraged oral intake. Replace magnesium and potassium. Avoid NSAIDs as they can induce hyponatremia.
[2022-07-11] MEDS: MAGNESIUM SULFATE-D5W PMX 1 GM in DEXTROSE/WATER 1 100ML.BAG IVPB SCH ×2 (12:53→14:12)
--- NOTE | 2022-07-11 13:00 | P.PN ---
Subjective Progress Note Date: 07/11/22 On today's evaluation of 07/09/2020, the patient has normocytic history complaints. Abdomen is slightly distended and another ultrasound was obtained which will again revealed some ascites. Otherwise, the patient continues to have some increased lower oximetry edema and I also noted this in the past inv olving the dorsal aspect of the left lower extremity. For that reason, the patient was started on IV Rocephin. No signs of any acute hepatic encephalopathy. The patient has stigmata of chronic liver failure and liver cirrhosis. No signs of any delirium tremens for now. The patient had a blood w ork that showed a white cell count of 11.7 with a hemoglobin of 10.7 and a platelet count of 145. Sodium is at 123, potassium level is at 3.8, chloride is 88 and the patient has normal renal function and a creatinine of 0.4. Sodium level remains obviously low. 07/10/2022, the patient is post another paracentesis with removal of 4.3 L of fluids. I started this patient on IV Rocephin yesterday due to concerns of SBP. I also noted an area of infection in the lower extremity, suggestive of cell ulitis. For that reason, she was started on IV Rocephin. She is doing well for now. No shortness of breath compared to yesterday. She remains on IV Rocephin. The blood work from today is showing a sodium level of 132, BUN is at 5 the creatinine of 0.4 and a potassium level of 4.0. The magnesium level is 1.7. The urine culture that was obtained on 06/19/2022 was positive for E. coli. No other cultures since. 07/11/2022, no signs of any hepatic encephalopathy, awake and alert and communic ating, having regular bowel movements, no fever, remains on IV Rocephin, cellulitis of the left lower extremity/foot is slightly improved and the area is less painful although it still erythematous and red. X-ray was done. No evidence of any gas bubbles or foreign bodies. No evidence of any fractures. Objective - Vital Signs Vital signs: Vital Signs Temp 98.2 F 07/11/22 02:32 Pulse 84 07/11/22 08:54 Resp 18 07/11/22 08:54 BP 117/75 07/11/22 08:54 Pulse Ox 95 07/11/22 08:54 FiO2 Intake & Output 07/10/22 07/11/22 07/11/22 18:59 06:59 18:59 Intake Total 520 Output Total 5 Balance 515 Weight 80 kg Intake: Oral 520 Output: Stool 1 Urine/Stool Mix 4 Other: Voiding Method Diaper Diaper Diaper Incontinent Incontinent External Catheter # Voids 1 2 1 # Bowel Movements 10 1 - Exam No acute distress, confused, currently on no supplemental oxygen. Saturations are 96%. HEENT examination is grossly unremarkable. Scleral icterus is noted. Neck supple. Full range of motion. No adenopathy thyromegaly or neck vein distention. Cardiovascular examination reveals regular rhythm rate. S1-S2 normal. No S3 or S4. No discernible murmur noted. Lungs reveal clear breath sounds. Breath sounds are equal bilaterally. No adventitious lung sounds including wheezes rhonchi or crackles. Abdomen soft bowel sounds are heard. No masses or tenderness. Extremities are intact. No cyanosis or clubbing. 1+ pitting edema is noted in the lower extremities. Skin is without rash or lesion. Neurologic examination is brief but nonfocal. - Labs CBC & Chem 7: 07/09/22 05:35 07/11/22 07:18 Labs: Abnormal Lab Results - Last 24 Hours (Table) 07/11/22 07/11/22 Range/Units 07:18 08:56 Sodium 130 L (137-145) mmol/L Chloride 92 L (98-107) mmol/L Glucose 105 H (74-99) mg/dL POC Glucose (mg/dL) 122 H (70-110) mg/dL Magnesium 1.4 L (1.6-2.3) mg/dL Assessment and Plan Plan: Severe hyponatremia secondary to excessive alcohol use, sodium levels improved Ascites, post another thoracentesis and removal of 4 L of fluid. The patient received significant symptomatic relief post paracentesis Alcoholism. Suspect liver cirrhosis and ascites. Benign essential hypertension. Hypomagnesemia. Alcoholic hepatitis. Acute urinary tract infection secondary to E. coli. acute cellulitis, left foot with erythema and redness and swelling, improving Plan: Cellulitis improving Continue IV Rocephin Fluid restriction Review midodrine for blood pressure control Continue Aldactone Continue torsemide Continue lactulose for hepatic encephalopathy Monitor electrolytes We'll follow
--- NOTE | 2022-07-11 13:01 | XR ---
Left foot HISTORY: Pain and swelling 3 views of the left foot Bone mineralization is reduced. There is soft tissue swelling. Marked osteoarthritic changes present at the first metatarsophalangeal joint, there is diminished joint space, hypertrophic change, subchon dral sclerosis and possible cyst formation, marginal spurring. Alignment is maintained. No fracture o r dislocation. There is a plantar calcaneal spur. No periostitis to suggest osteomyelitis is evident. Oval density in the lateral view dorsum of the foot in the soft tissues measures 2.4 cm and is indet erminate. IMPRESSION: Correlate for cellulitis, edema, abscess. Additional findings above.
--- NOTE | 2022-07-11 15:36 | P.PN ---
Subjective Progress Note Date: 07/11/22 This is a 71-year-old female who was recently brought to the emergency room with nausea and vomiting and generalized weakness and having decreased urine output and increase in abdominal distention. Patient does have past medical history of rheumatoid arthritis and daily alcohol use and CT of the abdomen showed a heterogenicity of the liver which appears new and could be related to hepatitis or cirrhosis with a moderate abdominal ascites noted and sigmoid diverticulosis. Multiple medical consultations including pulmonary, GI, nephrology following and patient was maintained in the ICU for quite some time on hypertonic solution. Patient continues on Lasix drip along with antibiotics. Patient con tinues to be extremely lethargic and will continue with lactulose 20 mg twice a day. Patient was started on antibiotics for UTI. Multiple electrolyte abnormalities as well and sodium is 127 today. Potassium is 3.5, current creatinine is 0.7 and total bili is 3.7. Recommend repeat labs. 07/05/2021 Patient is seen today in follow up and is currently sitting up in the chair and mentation is somewhat improved. Patient sodium continued to be low and nephrology following . Planning ecf and case management following. Patient is off lasix drip maintained on IV push Lasix with nephrology following. Recommend repeat labs in the a.m. Patient continues on ceftriaxone with urine cultures finalizing E. coli and will continue short course of oral antibiotics on discharge. Case management is following and working on accepting facilities with insurance authorization. Encouraged oral intake and continued physical therapy daily. Potassium again low at 3.0 and will replace per protocol and will add daily supplements. Recommend to replace as needed. Patient to be given a dose of samsca per nephrology. Recommend [place] catheter removal as well. 07/06/2022 Patient is seen and evaluated in follow-up today currently sitting up in the chair more awake and alert and appropriate to commands and questions. Patient continues with some confusion although much more appropriate today. Patient is maintained on IV antibiotics in the form of ceftriaxone and urine culture has finalized with E. coli with sensitivities and will continue for now. Patient is being followed closely by nephrology and maintained on IV push Lasix recommending another 24 hours and close monitoring of kidney functions along with electrolytes. Patient was given a dose of Samsca yesterday again today and current sodium mildly elevated up to 128 today. Potassium remains low at 3.2 and will replace per protocol and recommend daily supplementation of potassium. Patient is afebrile with no reports of nausea or vomiting noted. Recommend fluid restrictions as well. Recommend PT/OT therapy daily. Case management following as well as patient will likely need ECF for continued weakness. Patient and family are agreeable with this plan. 07/09/2022 Patient is seen and evaluated in follow-up this morning mentation improving and being followed by nephrology. Patient's sodium back down to 123 with a potassium at 3.8 mL was also found to be low at 1.7. Oral intake is fair to poor and not eating very well. Patient ammonia level within normal limits and will titrate the dose down to daily and monitor for at least 2-3 bowel movements. Patient also with some abdominal distention today and ultrasound of the abdomen was ordered for possible paracentesis. Patient did receive a previous paracentesis on this admission. Will await report. Patient continues with weakness and being followed by physical therapy daily encouraged increased activity as tolerated. Case management is following working on an accepting facility. Patient has received adequate amount of IV antibiotics for UTI E. coli and will discontinue ceftriaxone at this time. Recommend repeat labs and will continue to monitor the patient closely. 07/10/2022 Patient is seen this morning and more awake and alert today. Oral intake is fair and maintained on fluid restrictions. Patient is post paracentesis yesterday of about 4 L removed. Nephrology following and sodium is improved as well to 132 today post samsca. Patient was treated for UTI and abx were discontinued although resumed as her left foot is red and swollen. Will continue for now and monitor the foot. Possible cellulitis. Encouraged oral intake and increased activity as tolerated. Case management following and working on an accepting facility. Patient is afebrile and denies chest pain or shortness of breath. No reports of nausea or vomiting and tolerating diet. Continue fluid restrictions and is maintained on aldactone. Torsemide being added. 07/11/2022 Patient is seen in follow-up this morning more awake with nephrology and pulmonary following. Patient was resumed on IV ceftriaxone for left lower extremity cellulitis and will order foot x-ray. Patient continues to report discomfort of the left lower extremity with some erythema noted and there is joseph e signs of cellulitis with questionable hematoma at the site as well. Patient does not recall striking her hitting her foot although is somewhat confused at times. Patient is afebrile with no white count denies chest pain or shortness of breath. Patient's sodium is slightly improved at 130 today and is post paracentesis of approximately 4.3 L removed. Patient has been started on torsemide and is continued on Aldactone and will continue. Recommend continue with lactulose to titrate for 2-3 bowel movements daily. Patient per nursing staff has been refusing at times as she does not want to have continuous diarrhea multiple times throughout the day. Encourage the importance of taking medications as prescribed. Case management is also following working on [facility] facility that are accepting. Per nursing staff patient was reporting some chest tightness with associated anxiety and will order troponin along with EKG and chest x-ray. Low-dose Xanax was ordered as well. Review of systems: Constitutional: No reports of fatigue, fever, or chills Cardiovascular: No reports of chest pain or palpitations Respiratory: No reports of shortness of breath or cough GI: No reports of nausea, vomiting, reports loose bowel movements, poor oral intake although feels is improving slightly : No reports of dysuria or retention Neurovascular: reports of generalized weakness , reports some left foot pain and redness All medications have been reviewed Active Medications Folic Acid (Folic Acid 1 Mg Tab) 1 mg PO DAILY [facility] Last Admin: 07/11/22 07:40 Dose: 1 mg Heparin Sodium (Porcine) (Heparin Sodium,Porcine/Pf 5,000 Unit/0.5 Ml Syringe) 5,000 unit SQ Q8HR [facility] Last Admin: 07/11/22 07:41 Dose: 5,000 unit Ceftriaxone Sodium 1 gm/ (Sodium Chloride) 50 mls @ 100 mls/hr IVPB Q24HR [facility]; Protocol Last Admin: 07/11/22 07:41 Dose: 100 mls/hr Lactulose (Lactulose 20 Gm/30 Ml Cup) 30 gm PO DAILY [facility] Last Admin: 07/11/22 07:58 Dose: Not Given Lorazepam (Lorazepam 1 Mg/0.5 Ml Vial) 1 mg IV Q1HR PRN PRN Reason: CIWA 10 to 15 Last Admin: 06/30/22 23:41 Dose: 1 mg Lorazepam (Lorazepam 1 Mg/0.5 Ml Vial) 1 mg IV Q2HR PRN PRN Reason: CIWA 8 or 9 Last Admin: 06/30/22 05:16 Dose: 1 mg Magnesium Oxide (Magnesium Oxide 400 Mg Tab) 400 mg PO DAILY [facility] Last Admin: 07/11/22 07:40 Dose: 400 mg Midodrine (Midodrine 5 Mg Tab) 10 mg PO AC-TID [facility] Last Admin: 07/11/22 14:13 Dose: 10 mg Miscellaneous Information (Magnesium Replacement Protocol 1 Each Misc) 1 each MISCELLANE DAILY PRN; Protocol PRN Reason: Per Protocol Miscellaneous Information (Potassium Replacement Protocol 1 Each Misc) 1 each MISCELLANE DAILY PRN; Protocol PRN Reason: Per Protocol Morphine Sulfate (Morphine Sulfate 4 Mg/Ml Syringe) 4 mg IV Q2HR PRN PRN Reason: Pain Scale 8 to 10 Last Admin: 07/06/22 06:17 Dose: 4 mg Multivitamins (Multivitamins, Thera 1 Each Tab) 1 each PO DAILY [facility] Last Admin: 07/11/22 07:40 Dose: 1 each Naloxone HCl (Naloxone 0.4 Mg/Ml 1 Ml Vial) 0.2 mg IV Q2M PRN PRN Reason: Opioid Reversal Ondansetron HCl (Ondansetron 4 Mg/2 Ml Vial) 4 mg IVP Q6HR PRN PRN Reason: Nausea And Vomiting Last Admin: 07/08/22 08:24 Dose: 4 mg Pantoprazole Sodium (Pantoprazole 40 Mg Tablet) 40 mg PO AC-BRKFST [facility] Potassium Chloride (Potassium Chloride Er 20 Meq Tab.Er) 20 meq PO DAILY [facility] Last Admin: 07/11/22 07:40 Dose: 20 meq Spironolactone (Spironolactone 25 Mg Tab) 25 mg PO DAILY [facility] Last Admin: 07/11/22 07:40 Dose: 25 mg Thiamine HCl (Thiamine 100 Mg Tab) 100 mg PO DAILY [facility] Last Admin: 07/11/22 07:41 Dose: 100 mg Torsemide (Torsemide 20 Mg Tab) 20 mg PO DAILY [facility] Last Admin: 07/11/22 07:40 Dose: 20 mg PHYSICAL EXAMINATION: GENERAL: The patient is more awake and sitting up in bed today, continues to be more alert each day, Well developed, well nourished. HEENT: Pupils are round and equally reacting to light. EOMI. scleral icterus. No conjunctival pallor. Normocephalic, atraumatic. No pharyngeal erythema. No thyromegaly. CARDIOVASCULAR: S1 and S2 muffled PULMONARY: diminished breath sounds bilaterally with no wheezing or rhonchi noted. ABDOMEN: soft. Nontender on exam. obese. non-distended, normoactive bowel sounds. No palpable organomegaly. MUSCULOSKELETAL: No joint swelling or deformity. EXTREMITIES: No cyanosis, clubbing, or pedal edema. NEUROLOGICAL: Gross neurological examination did not reveal any focal deficits. Diffuse weakness SKIN: No rashes. Left dorsal foot redness and swelling noted with intact skin Assessment: Hyponatremia likely hypoosmolar with decreased oral intake. Intractable nausea and vomiting and decreased oral intake, nausea and vomiting has improved Acute alcohol withdrawal symptoms, currently no signs of withdrawal Acute alcoholic hepatitis Ascites post paracentesis x2 this admission. 07-09-22 with 4 liters removed E. coli urinary tract infection, treated possible left foot cellulitis Liver cirrhosis likely alcohol related Hyperbilirubinemia Alcohol abuse Hypomagnesemia 0.9 Anxiety Macrocytosis MCV 107.0 due to alcohol abuse GI prophylaxis DVT prophylaxis Full code Plan: Recommend to continue with current medications and management with nephrology following closely. Pulmonary following as well. Patient restarted on antibioti cs for possible left foot cellulitis as it is erythematous, warm, swollen, and painful to the touch. X-ray of the foot shows to correlate for cellulitis, edema, abscess with no periostitis to suggest osteomyelitis with no fractures or dislocations noted. Erythema slightly improved from yesterday's exam and will continue ceftriaxone. Patient is maintained on torsemide and Aldactone and will add Pranay wrap to that lower extremity and encourage the patient to elevate while at rest. Continue with lactulose although will titrate the dose down to daily as patient has been having multiple bowel movements and ammonia levels within normal limits. Sodium improved to 130 post samsca today with nephrology following. Patient is more awake and sitting up. Recommend to replace electrolytes per protocol and close monitoring. Medium found to be 1.4 and will replace and recommend repeat labs. Patient maintained on fluid restrictions and will continue. Case management is following working on accepting facility for ECF for continued PT/OT therapy. Due to multiple complex medical issues, progno sis is guarded. The impression and plan of care has been dictated by Bee Pichardo, nurse practitioner as directed. MD Deborah I have performed a history and examination and MDM of this patient, discussed the same with the dictator, and agree with the dictator's assessment and plan as written ,documented as a scribe. Based on total visit time, I have performed more than 50% of the visit. Any additional findings or plans will be noted. Objective - Vital Signs Vital signs: Vital Signs Temp 98.2 F 07/11/22 02:32 Pulse 84 07/11/22 08:54 Resp 18 07/11/22 08:54 BP 117/75 07/11/22 08:54 Pulse Ox 95 07/11/22 08:54 FiO2 Intake & Output 07/10/22 07/11/22 07/11/22 18:59 06:59 18:59 Intake Total 520 Output Total 5 Balance 515 Weight 80 kg Intake: Oral 520 Output: Stool 1 Urine/Stool Mix 4 Other: Voiding Method Diaper Diaper Incontinent # Voids 1 2 1 # Bowel Movements 10 1 - Labs CBC & Chem 7: 07/09/22 05:35 07/11/22 07:18 Labs: Abnormal Lab Results - Last 24 Hours (Table) 07/10/22 07/11/22 07/11/22 Range/Units 06:03 07:18 08:56 Sodium 132 L 130 L (137-145) mmol/L Chloride 96 L 92 L (98-107) mmol/L Carbon Dioxide 31 H (22-30) mmol/L BUN 5 L (7-17) mg/dL Creatinine 0.43 L (0.52-1.04) mg/dL Glucose 105 H (74-99) mg/dL POC Glucose (mg/dL) 122 H (70-110) mg/dL Calcium 8.3 L (8.4-10.2) mg/dL Magnesium 1.4 L (1.6-2.3) mg/dL
[2022-07-12] MEDS: HEPARIN SODIUM,PORCINE/PF 5,000 UNIT/0.5 ML SYRINGE SQ SCH ×3 (00:24→15:42)
[2022-07-12 07:53] LABS: African American GFR (CKD) >90 (>60 ml/min/1.73 sqM); Anion Gap 5 mmol/L; Blood Urea Nitrogen 10 mg/dL (7-17); Carbon Dioxide 31 mmol/L (22-30); Chloride 95 mmol/L (98-107); Glucose 94 mg/dL (74-99); Magnesium 1.4 mg/dL (1.6-2.3); Non-African American GFR(CKD) 90 (>60 ml/min/1.73 sqM); Potassium 4.6 mmol/L (3.5-5.1); Sodium 131 mmol/L (137-145)
[2022-07-12] MEDS: MIDODRINE 5 MG TAB PO SCH ×3 (08:23→18:51)
[2022-07-12] MEDS: POTASSIUM CHLORIDE ER 20 MEQ TAB.ER PO SCH (08:24)
[2022-07-12] MEDS: PANTOPRAZOLE 40 MG TABLET PO SCH (08:24)
[2022-07-12] MEDS: MAGNESIUM OXIDE 400 MG TAB PO SCH ×4 (08:24→21:19)
[2022-07-12] MEDS: MULTIVITAMINS, THERA 1 EACH TAB PO SCH (08:24)
[2022-07-12] MEDS: TORSEMIDE 20 MG TAB PO SCH (08:24)
[2022-07-12] MEDS: SPIRONOLACTONE 25 MG TAB PO SCH (08:24)
[2022-07-12] MEDS: FOLIC ACID 1 MG TAB PO SCH (08:24)
[2022-07-12] MEDS: THIAMINE 100 MG TAB PO SCH (08:24)
[2022-07-12] MEDS ORDERED: Magnesium Replacement Protocol 1 EACH MISC MISCELLANE PRN (08:30)
[2022-07-12] MEDS: MAGNESIUM SULFATE-D5W PMX 1 GM in DEXTROSE/WATER 1 100ML.BAG IVPB SCH ×3 (10:57→15:42)
[2022-07-12 11:04] LABS: Basophils # (A) 0.05 X 10*3/uL (0.00-0.10); Basophils % (A) 0.7 %; Eosinophils % (A) 1.5 %; HCT 27.4 % (37.2-46.3); HGB 9.8 g/dL (12.0-15.0); Immature Grans, Automated 0.4 %; Lymphocytes # (A) 1.11 X 10*3/uL (0.90-5.00); Lymphocytes % (A) 16.3 %; MCH 38.6 pg (27.0-32.0); MCHC 35.8 g/dL (32.0-37.0); MCV 107.9 fL (80.0-97.0); Mean Platelet Volume 9.5 fL (9.5-12.2); Monocytes # (A) 0.88 X 10*3/uL (0.20-1.00); NRBC Per 100 WBC 0 /100 WBCS (0.0-0.0); Neutrophils # (A) 4.62 X 10*3/uL (1.80-7.70); Neutrophils % (A) 68.1 %; Platelet Count 147 X 10*3/uL (140-440); RBC 2.54 X 10*6/uL (4.10-5.20); RDW 16.3 % (11.5-14.5); WBC 6.79 X 10*3/uL (4.50-10.00)
--- NOTE | 2022-07-12 12:59 | P.PN ---
Subjective Patient is seen for follow-up for severe hyponatremia and volume overload. Status post Lasix drip and Samsca Sodium is staying around 1:30 to 131 for the last 3-4 days. No significant complaints today. Volume status has significantly improved. Objective - Vital Signs Vital signs: Vital Signs Temp 98 F 07/12/22 08:00 Pulse 83 07/12/22 08:00 Resp 16 07/12/22 08:00 BP 123/69 07/12/22 12:29 Pulse Ox 96 07/12/22 08:00 FiO2 Intake & Output 07/11/22 07/12/22 07/12/22 18:59 06:59 18:59 Intake Total 1380 Balance 1380 Intake: Oral 1380 Other: Voiding Method Diaper Diaper Incontinent Incontinent External Catheter # Voids 2 3 # Bowel Movements 1 1 - Exam Patient is awake. Examination of the heart S1 and S2 Examination lungs decreased breath sounds at the bases Abdomen is soft nontender Examination of lower extremities shows no edema bilaterally [employer] exam grossly intact - Labs CBC & Chem 7: 07/12/22 07:20 07/12/22 07:20 Labs: Abnormal Lab Results - Last 24 Hours (Table) 07/12/22 07/12/22 Range/Units 07:20 07:20 RBC 2.54 L (4.10-5.20) X 10*6/uL Hgb 9.8 L (12.0-15.0) g/dL Hct 27.4 L (37.2-46.3) % MCV 107.9 H (80.0-97.0) fL MCH 38.6 H (27.0-32.0) pg RDW 16.3 H (11.5-14.5) % Sodium 131 L (137-145) mmol/L Chloride 95 L (98-107) mmol/L Carbon Dioxide 31 H (22-30) mmol/L Calcium 8.0 L (8.4-10.2) mg/dL Magnesium 1.4 L (1.6-2.3) mg/dL Assessment and Plan Assessment: 1. Hyponatremia associated with poor solute intake and hypervolemia. Improved with aggressive diuresis and patient has received Samsca as well 2. History of EtOH abuse with concern for alcoholic hepatitis. 3. Benign hypertension with low blood pressures initially currently improved 4. Ascites status post paracentesis with 3 L of fluid removed 5. Volume overload, improved 6. Metabolic acidosis status post sodium bicarb Plan: Continue with oral Demadex Maintain salt and fluid restriction Repeat sodium in a.m.
--- NOTE | 2022-07-12 13:39 | P.PN ---
Subjective Progress Note Date: 07/12/22 On today's evaluation of 07/09/2020, the patient has normocytic history complaints. Abdomen is slightly distended and another ultrasound was obtained which will again revealed some ascites. Otherwise, the patient continues to have some increased lower oximetry edema and I also noted this in the past inv olving the dorsal aspect of the left lower extremity. For that reason, the patient was started on IV Rocephin. No signs of any acute hepatic encephalopathy. The patient has stigmata of chronic liver failure and liver cirrhosis. No signs of any delirium tremens for now. The patient had a blood w ork that showed a white cell count of 11.7 with a hemoglobin of 10.7 and a platelet count of 145. Sodium is at 123, potassium level is at 3.8, chloride is 88 and the patient has normal renal function and a creatinine of 0.4. Sodium level remains obviously low. 07/10/2022, the patient is post another paracentesis with removal of 4.3 L of fluids. I started this patient on IV Rocephin yesterday due to concerns of SBP. I also noted an area of infection in the lower extremity, suggestive of cell ulitis. For that reason, she was started on IV Rocephin. She is doing well for now. No shortness of breath compared to yesterday. She remains on IV Rocephin. The blood work from today is showing a sodium level of 132, BUN is at 5 the creatinine of 0.4 and a potassium level of 4.0. The magnesium level is 1.7. The urine culture that was obtained on 06/19/2022 was positive for E. coli. No other cultures since. 07/11/2022, no signs of any hepatic encephalopathy, awake and alert and communic ating, having regular bowel movements, no fever, remains on IV Rocephin, cellulitis of the left lower extremity/foot is slightly improved and the area is less painful although it still erythematous and red. X-ray was done. No evidence of any gas bubbles or foreign bodies. No evidence of any fractures. 07/12/2022, patient is resting comfortably in bed. On her blood work, her sodium level is at 131 with a potassium level of 4.6 with a BUN of 10 and a creatinine of 0.6. The white cell count at 6.7 with a hemoglobin of 9.8. She remains on IV Rocephin. She remains on Demadex. She is also taking lactulose. Midodrine for chronic hypotension. Cellulitis is being monitored in the left foot. She is on room air oxygen with a pulse ox of 96%. Objective - Vital Signs Vital signs: Vital Signs Temp 98 F 07/12/22 08:00 Pulse 83 07/12/22 08:00 Resp 16 07/12/22 08:00 BP 123/69 07/12/22 12:29 Pulse Ox 96 07/12/22 08:00 FiO2 Intake & Output 07/11/22 07/12/22 07/12/22 18:59 06:59 18:59 Intake Total 1380 Balance 1380 Intake: Oral 1380 Other: Voiding Method Diaper Diaper Incontinent Incontinent External Catheter # Voids 2 3 # Bowel Movements 1 1 - Exam No acute distress, confused, currently on no supplemental oxygen. Saturations are 96%. HEENT examination is grossly unremarkable. Scleral icterus is noted. Neck supple. Full range of motion. No adenopathy thyromegaly or neck vein distention. Cardiovascular examination reveals regular rhythm rate. S1-S2 normal. No S3 or S4. No discernible murmur noted. Lungs reveal clear breath sounds. Breath sounds are equal bilaterally. No adventitious lung sounds including wheezes rhonchi or crackles. Abdomen soft bowel sounds are heard. No masses or tenderness. Extremities are intact. No cyanosis or clubbing. 1+ pitting edema is noted in the lower extremities. Skin is without rash or lesion. Neurologic examination is brief but nonfocal. - Labs CBC & Chem 7: 07/12/22 07:20 07/12/22 07:20 Labs: Abnormal Lab Results - Last 24 Hours (Table) 07/12/22 07/12/22 Range/Units 07:20 07:20 RBC 2.54 L (4.10-5.20) X 10*6/uL Hgb 9.8 L (12.0-15.0) g/dL Hct 27.4 L (37.2-46.3) % MCV 107.9 H (80.0-97.0) fL MCH 38.6 H (27.0-32.0) pg RDW 16.3 H (11.5-14.5) % Sodium 131 L (137-145) mmol/L Chloride 95 L (98-107) mmol/L Carbon Dioxide 31 H (22-30) mmol/L Calcium 8.0 L (8.4-10.2) mg/dL Magnesium 1.4 L (1.6-2.3) mg/dL Assessment and Plan Plan: Severe hyponatremia secondary to excessive alcohol use, sodium levels improved Ascites, post another thoracentesis and removal of 4 L of fluid. The patient received significant symptomatic relief post paracentesis Alcoholism. Suspect liver cirrhosis and ascites. Benign essential hypertension. Hypomagnesemia. Alcoholic hepatitis. Acute urinary tract infection secondary to E. coli. acute cellulitis, left foot with erythema and redness and swelling, improving Plan: Cellulitis has further improved compared to yesterday and that his decrease in erythema and warmth and swelling Continue IV Rocephin Fluid restriction Review midodrine for blood pressure control Continue Aldactone Continue torsemide Continue lactulose for hepatic encephalopathy Monitor electrolytes We'll follow We'll see the patient on as-needed basis. Condition is stable for now.
--- NOTE | 2022-07-12 16:38 | CT ---
EXAMINATION TYPE: CT foot LT w con CT DLP: 302.1 mGycm, Automated exposure control for dose reduction was used. DATE OF EXAM: 07/12/2022 4:28 PM COMPARISON: Left foot radiograph 07/11/2022. CLINICAL INDICATION:Female, 71 years old with history of abscess; PHH, Left foot redness, swelling an d pain TECHNIQUE: Axial images were obtained of the left foot after the uneventful administration of 100 cc of Isovue-300 intravenously.. Additional coronal and sagittal reformatted images and soft tissue and bone window were obtained for review. 3-D reconstruction was created on a separate workstation. FINDINGS: Diffuse subcutaneous edema. Heterogenous increased density along the soft tissues of the do rsum of the midfoot measuring 1.9 x 7.1 x 3.1 cm. No gas within this. No acute fracture or dislocatio n. No osseous erosion. Small plantar containing enthesophyte. Osteoarthritic changes of the first MTP joint with joint space narrowing and marginal spurring. No organized fluid collection or gas suggest abscess. IMPRESSION: 1. Heterogenous increased density along the soft tissues of the dorsum of the midfoot. Findings are s uspicious for hematoma. No organized fluid or gas collection to suggest abscess. Diffuse subcutaneous edema. Superimposed cellulitis is not excluded. 2. No acute fracture or dislocation. No osseous erosions. 3. Osteoarthritic changes of the first MTP joint.
--- NOTE | 2022-07-12 22:38 | P.CONS ---
History of Present Illness - Reason for Consult Consult date: 07/12/22 Left foot cellulitis Requesting physician: Bee Pichardo - Chief Complaint Left for swelling and redness x few days - History of Present Illness Patient is a 71-year-old female presented to the hospital 16 days ago on 06/26/2022 for evaluation of nausea and vomiting in this patient symptom has been going on for about a month decreased bowel movement and progressive abdominal distention complaining of weakness patient did have a CT of abdominal pelvis concerning for possible cirrhosis of the liver moderate abdominal ascites and hepatic cyst patient has been evaluated by GI services and did have a paracentesis completed on 06/28/2022 with 3 L of straw-colored fluid was removed with a repeat paracentesis on 07/09/2022 removal of 4.3 L of ascitic fluid patie nt apparently noticed to have a swelling and redness of the left foot the patient mention has been there since admission patient did have x-ray of the left foot completed this afternoon concerning for possible abscess and cellulitis patient was started on Rocephin infectious disease was consulted for further management patient is currently afebrile she did have a white count of 11.73 on 1010 however is down to 6.7 As of today kidney function is normal patient has been complaining of pain to the left foot more of a dull aching intensity 5-6 over 10 and radiation with associated swelling redness denies any history of any trauma and there is no drainage Review of Systems Positive point has been mentioned in the HPI rest of the systems are negative Past Medical History Past Medical History: COPD, GERD/Reflux, Hyperlipidemia, Hypertension, Rheumatoid Arthritis (RA) Additional Past Medical History / Comment(s): Pancreatitis History of Any Multi-Drug Resistant Organisms: None Reported Past Surgical History: Hysterectomy, Tubal Ligation Additional Past Surgical History / Comment(s): One ovary removed, stomach muscles repaired, Past Anesthesia/Blood Transfusion Reactions: No Reported Reaction Past Psychological History: No Psychological Hx Reported Additional Psychological History / Comment(s): Patient lives in own home. Independent. Son helps with groceries. Patient states she lives with son Robbin Manrique Smoking Status: Former smoker Past Alcohol Use History: Daily Additional Past Alcohol Use History / Comment(s): Patient drinks 4 beers and 1 glass of wine every day. Past Drug Use History: None Reported - Past Family History Father Family Medical History: Cancer Additional Family Medical History / Comment(s): Throat cancer and . Mother Additional Family Medical History / Comment(s): Brain aneurysm and . Son(s) Family Medical History: Hypertension Additional Family Medical History / Comment(s): Oldest son has HTN. Medications and Allergies Home Medications Medication Instructions Recorded Confirmed Type Albuterol Sulfate [Proair Hfa] 1 - 2 puff INHALATION RT-Q6H PRN 06/10/19 06/26/22 History Metoprolol Tartrate 25 mg PO DAILY 06/10/19 06/26/22 History Milk Thistle 150 mg PO DAILY 06/10/19 06/26/22 History [place]-3 Fatty Acids/Fish Oil [Fish 1 cap PO BID 06/10/19 06/26/22 History Oil 1,000 mg Softgel] lisinopriL 20 mg PO DAILY 06/10/19 06/26/22 History Metoprolol Tartrate [Lopressor] 25 mg PO HS PRN 06/26/22 06/26/22 History Omeprazole 20 mg PO DAILY 06/26/22 06/26/22 History Allergies Allergy/AdvReac Type Severity Reaction Status Date / Time No Known Allergies Allergy Verified 06/26/22 22:36 Physical Exam Vitals: Vital Signs Temp Pulse Pulse Resp BP BP Pulse Ox 07/12/22 12:29 123/69 07/12/22 08:00 98 F 83 16 117/64 96 07/12/22 00:40 97.6 F 92 17 122/75 95 07/12/22 00:24 85 92 18 07/11/22 19:09 97.8 F 92 18 120/61 96 07/11/22 17:10 132/80 Intake and Output 07/11/22 07/12/22 07/12/22 22:59 06:59 14:59 Intake Total 1380 Balance 1380 Intake: Oral 1380 Other: Voiding Method Diaper Incontinent # Voids 2 3 # Bowel Movements 1 1 GENERAL DESCRIPTION: elderly female lying in bed, no distress. No tachypnea or accessory muscle of respiration use. HEENT: Shows Pallor , no scleral icterus. Oral mucous membrane is dry. No pharyngeal erythema or thrush NECK: Trachea central, no thyromegaly. LUNGS: Unlabored breathing. Clear to auscultation anteriorly. No wheeze or crackle. HEART: S1, S2, regular rate and rhythm. No loud murmur ABDOMEN: Soft, no tenderness , guarding or rigidity, no organomegaly EXTREMITIES: left foot swollen and red on the dorsum. SKIN: No rash, no masses palpable. NEUROLOGICAL: The patient is awake, alert, oriented x3, mood and affect normal. Results CBC & Chem 7: 07/13/22 06:53 07/13/22 06:53 Labs: Abnormal Lab Results - Last 24 Hours (Table) 07/12/22 07/12/22 Range/Units 07:20 07:20 RBC 2.54 L (4.10-5.20) X 10*6/uL Hgb 9.8 L (12.0-15.0) g/dL Hct 27.4 L (37.2-46.3) % MCV 107.9 H (80.0-97.0) fL MCH 38.6 H (27.0-32.0) pg RDW 16.3 H (11.5-14.5) % Sodium 131 L (137-145) mmol/L Chloride 95 L (98-107) mmol/L Carbon Dioxide 31 H (22-30) mmol/L Calcium 8.0 L (8.4-10.2) mg/dL Magnesium 1.4 L (1.6-2.3) mg/dL Assessment and Plan (1) Hematoma of left foot Current Visit: Yes Status: Acute Code(s): S90.32XA - CONTUSION OF LEFT FOOT, INITIAL ENCOUNTER SNOMED Code(s): [id number] Plan: 1patient with a left foot swelling and redness that has been going on for couple of days to week in this patient who do have a history of cirrhosis of the liver and did have paracentesis x2 during this admission with question of possible fluid overload question of hematoma/seroma underlying abscess less likely in this patient with no fever elevated white count but not entirely excluded. 2we will obtain a CT of the foot to better define underlying pathology if suspicious for an abscess may benefit from surgical drainage of deep culture. 3we will obtain inflammatory markers and blood cultures. 4continue with empiric Rocephin at this point. 5 Pranay wrap to the left foot from just above the toe to above the ankle area We will follow on clinical condition and cultures to further adjust medication if needed Thank you for this consultation will follow this patient along with you Time with Patient: Greater than 30
[2022-07-12] MEDS ORDERED: HEPARIN SODIUM,PORCINE 5,000 UNIT/ML 1 ML VIAL ONE (23:45)
[2022-07-13] MEDS: HEPARIN SODIUM,PORCINE/PF 5,000 UNIT/0.5 ML SYRINGE SQ SCH ×3 (04:55→17:32)
[2022-07-13] MEDS: PANTOPRAZOLE 40 MG TABLET PO SCH (08:01)
[2022-07-13] MEDS: MAGNESIUM OXIDE 400 MG TAB PO SCH ×3 (08:01→20:31)
[2022-07-13] MEDS: MULTIVITAMINS, THERA 1 EACH TAB PO SCH (08:01)
[2022-07-13] MEDS: TORSEMIDE 20 MG TAB PO SCH (08:01)
[2022-07-13] MEDS: SPIRONOLACTONE 25 MG TAB PO SCH (08:02)
[2022-07-13] MEDS: FOLIC ACID 1 MG TAB PO SCH (08:02)
[2022-07-13] MEDS: MIDODRINE 5 MG TAB PO SCH ×3 (08:02→17:28)
[2022-07-13] MEDS: THIAMINE 100 MG TAB PO SCH (08:02)
[2022-07-13] MEDS ORDERED: traMADol 50 MG TAB PO STA (09:02)
--- NOTE | 2022-07-13 09:12 | P.PN ---
Subjective Progress Note Date: 07/12/22 This is a 71-year-old female who was recently brought to the emergency room with nausea and vomiting and generalized weakness and having decreased urine output and increase in abdominal distention. Patient does have past medical history of rheumatoid arthritis and daily alcohol use and CT of the abdomen showed a heterogenicity of the liver which appears new and could be related to hepatitis or cirrhosis with a moderate abdominal ascites noted and sigmoid diverticulosis. Multiple medical consultations including pulmonary, GI, nephrology following and patient was maintained in the ICU for quite some time on hypertonic solution. Patient continues on Lasix drip along with antibiotics. Patient con tinues to be extremely lethargic and will continue with lactulose 20 mg twice a day. Patient was started on antibiotics for UTI. Multiple electrolyte abnormalities as well and sodium is 127 today. Potassium is 3.5, current creatinine is 0.7 and total bili is 3.7. Recommend repeat labs. 07/05/2021 Patient is seen today in follow up and is currently sitting up in the chair and mentation is somewhat improved. Patient sodium continued to be low and nephrology following . Planning ecf and case management following. Patient is off lasix drip maintained on IV push Lasix with nephrology following. Recommend repeat labs in the a.m. Patient continues on ceftriaxone with urine cultures finalizing E. coli and will continue short course of oral antibiotics on discharge. Case management is following and working on accepting facilities with insurance authorization. Encouraged oral intake and continued physical therapy daily. Potassium again low at 3.0 and will replace per protocol and will add daily supplements. Recommend to replace as needed. Patient to be given a dose of samsca per nephrology. Recommend [place] catheter removal as well. 07/06/2022 Patient is seen and evaluated in follow-up today currently sitting up in the chair more awake and alert and appropriate to commands and questions. Patient continues with some confusion although much more appropriate today. Patient is maintained on IV antibiotics in the form of ceftriaxone and urine culture has finalized with E. coli with sensitivities and will continue for now. Patient is being followed closely by nephrology and maintained on IV push Lasix recommending another 24 hours and close monitoring of kidney functions along with electrolytes. Patient was given a dose of Samsca yesterday again today and current sodium mildly elevated up to 128 today. Potassium remains low at 3.2 and will replace per protocol and recommend daily supplementation of potassium. Patient is afebrile with no reports of nausea or vomiting noted. Recommend fluid restrictions as well. Recommend PT/OT therapy daily. Case management following as well as patient will likely need ECF for continued weakness. Patient and family are agreeable with this plan. 07/09/2022 Patient is seen and evaluated in follow-up this morning mentation improving and being followed by nephrology. Patient's sodium back down to 123 with a potassium at 3.8 mL was also found to be low at 1.7. Oral intake is fair to poor and not eating very well. Patient ammonia level within normal limits and will titrate the dose down to daily and monitor for at least 2-3 bowel movements. Patient also with some abdominal distention today and ultrasound of the abdomen was ordered for possible paracentesis. Patient did receive a previous paracentesis on this admission. Will await report. Patient continues with weakness and being followed by physical therapy daily encouraged increased activity as tolerated. Case management is following working on an accepting facility. Patient has received adequate amount of IV antibiotics for UTI E. coli and will discontinue ceftriaxone at this time. Recommend repeat labs and will continue to monitor the patient closely. 07/10/2022 Patient is seen this morning and more awake and alert today. Oral intake is fair and maintained on fluid restrictions. Patient is post paracentesis yesterday of about 4 L removed. Nephrology following and sodium is improved as well to 132 today post samsca. Patient was treated for UTI and abx were discontinued although resumed as her left foot is red and swollen. Will continue for now and monitor the foot. Possible cellulitis. Encouraged oral intake and increased activity as tolerated. Case management following and working on an accepting facility. Patient is afebrile and denies chest pain or shortness of breath. No reports of nausea or vomiting and tolerating diet. Continue fluid restrictions and is maintained on aldactone. Torsemide being added. 07/11/2022 Patient is seen in follow-up this morning more awake with nephrology and pulmonary following. Patient was resumed on IV ceftriaxone for left lower extremity cellulitis and will order foot x-ray. Patient continues to report discomfort of the left lower extremity with some erythema noted and there is joseph e signs of cellulitis with questionable hematoma at the site as well. Patient does not recall striking her hitting her foot although is somewhat confused at times. Patient is afebrile with no white count denies chest pain or shortness of breath. Patient's sodium is slightly improved at 130 today and is post paracentesis of approximately 4.3 L removed. Patient has been started on torsemide and is continued on Aldactone and will continue. Recommend continue with lactulose to titrate for 2-3 bowel movements daily. Patient per nursing staff has been refusing at times as she does not want to have continuous diarrhea multiple times throughout the day. Encourage the importance of taking medications as prescribed. Case management is also following working on [facility] facility that are accepting. Per nursing staff patient was reporting some chest tightness with associated anxiety and will order troponin along with EKG and chest x-ray. Low-dose Xanax was ordered as well. 07/12/2022 Patient is seen today with no acute overnight issues noted. Patient reports to some anxiety and asking for something. Patient with some abdominal distention although soft and currently not reporting any pain. Patient is continued on ceftriaxone and obtained x-ray of the left foot showing to correlate for cellulitis, edema, abscess with no fractures or dislocations noted and no. No suggestion of osteomyelitis evident. Patient CBC within normal limits and sodium is 131 today although magnesium again is 1.4 and will increase magnesium oxide and also replace per protocol. Follow-up with repeat labs. Patient is anxious and wanting to work with physical therapy and continues with weakness. Continue with fluid restrictions and current medication regimen. Infectious disease has been consulted and pending for input and recommendations of the left foot. Attempted Pranay wraps to help with swelling although patient did not tolerate well and took the Pranay wrap soft. Review of systems: Constitutional: No reports of fatigue, fever, or chills Cardiovascular: No reports of chest pain or palpitations Respiratory: No reports of shortness of breath or cough GI: No reports of nausea, vomiting, reports no bowel movement today, poor oral intake although feels is improving slightly : No reports of dysuria or retention Neurovascular: reports of generalized weakness , reports some left foot pain and redness All medications have been reviewed Active Medications Folic Acid (Folic Acid 1 Mg Tab) 1 mg PO DAILY [facility] Last Admin: 07/13/22 08:02 Dose: 1 mg Heparin Sodium (Porcine) (Heparin Sodium,Porcine/Pf 5,000 Unit/0.5 Ml Syringe) 5,000 unit SQ Q8HR [facility] Last Admin: 07/13/22 08:02 Dose: 5,000 unit Ceftriaxone Sodium 1 gm/ (Sodium Chloride) 50 mls @ 100 mls/hr IVPB Q24HR [facility]; Protocol Last Admin: 07/13/22 08:02 Dose: 100 mls/hr Lactulose (Lactulose 20 Gm/30 Ml Cup) 30 gm PO DAILY PRN PRN Reason: Constipation Lorazepam (Lorazepam 1 Mg/0.5 Ml Vial) 1 mg IV Q1HR PRN PRN Reason: CIWA 10 to 15 Last Admin: 06/30/22 23:41 Dose: 1 mg Lorazepam (Lorazepam 1 Mg/0.5 Ml Vial) 1 mg IV Q2HR PRN PRN Reason: CIWA 8 or 9 Last Admin: 06/30/22 05:16 Dose: 1 mg Magnesium Oxide (Magnesium Oxide 400 Mg Tab) 400 mg PO TID [facility] Last Admin: 07/13/22 08:01 Dose: 400 mg Midodrine (Midodrine 5 Mg Tab) 10 mg PO AC-TID [facility] Last Admin: 07/13/22 08:02 Dose: 10 mg Miscellaneous Information (Magnesium Replacement Protocol 1 Each Misc) 1 each MISCELLANE DAILY PRN; Protocol PRN Reason: Per Protocol Miscellaneous Information (Potassium Replacement Protocol 1 Each Misc) 1 each MISCELLANE DAILY PRN; Protocol PRN Reason: Per Protocol Miscellaneous Information (Magnesium Replacement Protocol 1 Each Misc) 1 each MISCELLANE DAILY PRN; Protocol PRN Reason: Per Protocol Multivitamins (Multivitamins, Thera 1 Each Tab) 1 each PO DAILY [facility] Last Admin: 07/13/22 08:01 Dose: 1 each Naloxone HCl (Naloxone 0.4 Mg/Ml 1 Ml Vial) 0.2 mg IV Q2M PRN PRN Reason: Opioid Reversal Ondansetron HCl (Ondansetron 4 Mg/2 Ml Vial) 4 mg IVP Q6HR PRN PRN Reason: Nausea And Vomiting Last Admin: 07/08/22 08:24 Dose: 4 mg Pantoprazole Sodium (Pantoprazole 40 Mg Tablet) 40 mg PO AC-BRKFST [facility] Last Admin: 07/13/22 08:01 Dose: 40 mg Spironolactone (Spironolactone 25 Mg Tab) 25 mg PO DAILY [facility] Last Admin: 07/13/22 08:02 Dose: 25 mg Thiamine HCl (Thiamine 100 Mg Tab) 100 mg PO DAILY [facility] Last Admin: 07/13/22 08:02 Dose: 100 mg Torsemide (Torsemide 20 Mg Tab) 20 mg PO DAILY [facility] Last Admin: 07/13/22 08:01 Dose: 20 mg PHYSICAL EXAMINATION: GENERAL: The patient is more awake and sitting up in bed today, continues to be more alert each day, Well developed, well nourished. HEENT: Pupils are round and equally reacting to light. EOMI. scleral icterus. No conjunctival pallor. Normocephalic, atraumatic. No pharyngeal erythema. No thyromegaly. CARDIOVASCULAR: S1 and S2 muffled PULMONARY: diminished breath sounds bilaterally with no wheezing or rhonchi noted. ABDOMEN: soft. Nontender on exam. obese. non-distended, normoactive bowel sounds. No palpable organomegaly. MUSCULOSKELETAL: No joint swelling or deformity. EXTREMITIES: No cyanosis, clubbing, or pedal edema. NEUROLOGICAL: Gross neurological examination did not reveal any focal deficits. Diffuse weakness SKIN: No rashes. Left dorsal foot redness and swelling noted with intact skin with possible in appearance of a hematoma and possible other fluid collection bubble is intact noted on the dorsum Assessment: Hyponatremia likely hypoosmolar with decreased oral intake. Intractable nausea and vomiting and decreased oral intake, nausea and vomiting has improved Acute alcohol withdrawal symptoms, currently no signs of withdrawal Acute alcoholic hepatitis Ascites post paracentesis x2 this admission. 07-09-22 with 4 liters removed E. coli urinary tract infection, treated possible left foot cellulitis Liver cirrhosis likely alcohol related Hyperbilirubinemia Alcohol abuse Hypomagnesemia 0.9 Anxiety Macrocytosis MCV 107.0 due to alcohol abuse GI prophylaxis DVT prophylaxis Full code Plan: Recommend to continue with current medications and management with nephrology following closely. Pulmonary following as well. Patient restarted on antibiotics for possible left foot cellulitis as it is erythematous, warm, swollen, and painful to the touch. X-ray of the foot shows to correlate for cellulitis, edema, abscess with no periostitis to suggest osteomyelitis with no fractures or dislocations noted. Erythema slightly improved from yesterday's exam and will continue ceftriaxone. Will consult infectious disease as patient continues to have left foot pain and appreciate input and recommendations. Patient is maintained on torsemide and Aldactone. Attempted Pranay wrap to that lower extremity and encourage the patient to elevate while at rest. Patient did not tolerate the Pranay wrap well and took it off. Continue with lactulose although will titrate the dose down to daily as patient has been having multiple bowel movements and ammonia levels within normal limits. Recommend lactulose daily not as needed. Sodium improved to 131 today with nephrology following. Patient is more awake and sitting up. Recommend to replace electrolytes per protocol and close monitoring. Magnesium found to be 1.4 and will replace and recommend repeat labs. Magnesium oxide increased as well for oral supplementation daily scheduled. Patient maintained on fluid restrictions and will continue. Case management is following working on accepting facility for ECF for continued PT/OT therapy. Due to multiple complex medical issues, prognosis is guarded. The impression and plan of care has been dictated by Bee Pichardo, nurse practitioner as directed. MD Deborah I have performed a history and examination and MDM of this patient, discussed the same with the dictator, and agree with the dictator's assessment and plan as written ,documented as a scribe. Based on total visit time, I have performed more than 50% of the visit. Any additional findings or plans will be noted. Objective - Vital Signs Vital signs: Vital Signs Temp 98 F 07/12/22 08:00 Pulse 83 07/12/22 08:00 Resp 16 07/12/22 08:00 BP 117/64 07/12/22 08:00 Pulse Ox 96 07/12/22 08:00 FiO2 Intake & Output 07/11/22 07/12/22 07/12/22 18:59 06:59 18:59 Intake Total 1380 Balance 1380 Intake: Oral 1380 Other: Voiding Method Diaper Diaper Incontinent Incontinent External Catheter # Voids 2 3 # Bowel Movements 1 1 - Labs CBC & Chem 7: 07/12/22 07:20 07/12/22 07:20 Labs: Abnormal Lab Results - Last 24 Hours (Table) 07/12/22 07/12/22 Range/Units 07:20 07:20 RBC 2.54 L (4.10-5.20) X 10*6/uL Hgb 9.8 L (12.0-15.0) g/dL Hct 27.4 L (37.2-46.3) % MCV 107.9 H (80.0-97.0) fL MCH 38.6 H (27.0-32.0) pg RDW 16.3 H (11.5-14.5) % Sodium 131 L (137-145) mmol/L Chloride 95 L (98-107) mmol/L Carbon Dioxide 31 H (22-30) mmol/L Calcium 8.0 L (8.4-10.2) mg/dL Magnesium 1.4 L (1.6-2.3) mg/dL
--- NOTE | 2022-07-13 09:46 | US ---
EXAMINATION TYPE: US abdomen limited DATE OF EXAM: 07/13/2022 COMPARISON: NONE CLINICAL HISTORY: evaluate acities. Abdominal ascites seen both left and right abdomen IMPRESSION: 1. Abdominal Ascites
[2022-07-13 10:35] LABS: Basophils # (A) 0.05 X 10*3/uL (0.00-0.10); Basophils % (A) 0.7 %; Eosinophils # (A) 0.07 X 10*3/uL (0.04-0.35); HCT 28.6 % (37.2-46.3); Immature Grans, Automated 0.3 %; Lymphocytes # (A) 1.29 X 10*3/uL (0.90-5.00); Lymphocytes % (A) 18.6 %; MCH 38.3 pg (27.0-32.0); MCV 109.6 fL (80.0-97.0); Mean Platelet Volume 9.8 fL (9.5-12.2); Monocytes # (A) 1.03 X 10*3/uL (0.20-1.00); Monocytes % (A) 14.9 %; NRBC Per 100 WBC 0 /100 WBCS (0.0-0.0); Neutrophils # (A) 4.46 X 10*3/uL (1.80-7.70); Neutrophils % (A) 64.5 %; Platelet Count 149 X 10*3/uL (140-440); RBC 2.61 X 10*6/uL (4.10-5.20); RDW 16.2 % (11.5-14.5); WBC 6.92 X 10*3/uL (4.50-10.00)
--- NOTE | 2022-07-13 10:54 | P.PN ---
Subjective Patient is seen in follow-up for hyponatremia. Sodium level 131 yesterday. Has been voiding. Incontinent. Underwent second paracentesis this admission on 07/09/2022 with 4.3 L drained. Oral intake poor. Vital signs are stable. General: No acute distress. HEENT: Head exam is unremarkable. LUNGS: Breath sounds decreased. HEART: Regular rate and rhythm. ABDOMEN: Soft, mild distention. EXTREMITITES: Trace edema. Objective - Vital Signs Vital signs: Vital Signs Temp 98.9 F 07/13/22 08:21 Pulse 93 07/13/22 08:21 Resp 17 07/13/22 08:21 BP 111/66 07/13/22 08:21 Pulse Ox 94 L 07/13/22 08:21 FiO2 Intake & Output 07/12/22 07/13/22 07/13/22 18:59 06:59 18:59 Other: Voiding Method Diaper Diaper Diaper Incontinent Incontinent Incontinent External Catheter # Voids 4 6 - Labs CBC & Chem 7: 07/13/22 06:53 07/12/22 07:20 Labs: Abnormal Lab Results - Last 24 Hours (Table) 07/12/22 07/13/22 Range/Units 07:20 06:53 RBC 2.54 L 2.61 L (4.10-5.20) X 10*6/uL Hgb 9.8 L 10.0 L (12.0-15.0) g/dL Hct 27.4 L 28.6 L (37.2-46.3) % MCV 107.9 H 109.6 H (80.0-97.0) fL MCH 38.6 H 38.3 H (27.0-32.0) pg RDW 16.3 H 16.2 H (11.5-14.5) % Monocytes # 1.03 H (0.20-1.00) X 10*3/uL Assessment and Plan Plan: Assessment: 1. Hyponatremia secondary to poor solute intake/excessive fluid intake. Hypervolemic. Sodium level 131 yesterday. Cortisol level not low. TSH is 6.7. Urine sodium less than 20 and urine osmolality 278. 2. Alcohol abuse. Concern for alcoholic hepatitis. GI following. CT of the abdomen and pelvis suggestive of hepatitis versus cirrhosis. No hydronephrosis noted. 3. Benign hypertension. Controlled. 4. Ascites noted on CAT scan. Status post paracentesis on 06/28/2022 to 3 L drained. 5. Hypomagnesemia from poor intake and diuresis. Replaced. 6. Volume overload. Improved post paracentesis. 7. Metabolic acidosis, resolved. Plan: Status post Samsca given 07/09/2022. Continue Aldactone. Maintain torsemide. Maintain fluid restriction. Encouraged oral intake. Avoid NSAIDs as they can induce hyponatremia.
[2022-07-13 10:56] LABS: C Reactive Protein 1.7 mg/dL (0.00-0.80); Magnesium 1.8 mg/dL (1.5-2.4)
[2022-07-13 11:21] LABS: African American GFR (CKD) 105.5 (60.0-200.0); Albumin/Globulin Ratio 1.41 (1.60-3.17); Anion Gap 6.7 mmol/L (10.00-18.00); BUN/Creat Ratio 14.05 Ratio (12.00-20.00); Blood Urea Nitrogen 8.3 mg/dL (9.0-27.0); Calcium 8.4 mg/dL (8.7-10.3); Carbon Dioxide 28.2 mmol/L (20.0-27.5); Globulin 2.1 g/dL (1.6-3.3); Potassium 4.6 mmol/L (3.5-5.5); Total Bilirubin 3.6 mg/dL (0.30-1.20); Total Protein 5.1 g/dL (6.2-8.2)
--- NOTE | 2022-07-13 13:55 | P.PN ---
Subjective Progress Note Date: 07/13/22 On today's evaluation of 07/09/2020, the patient has normocytic history complaints. Abdomen is slightly distended and another ultrasound was obtained which will again revealed some ascites. Otherwise, the patient continues to have some increased lower oximetry edema and I also noted this in the past inv olving the dorsal aspect of the left lower extremity. For that reason, the patient was started on IV Rocephin. No signs of any acute hepatic encephalopathy. The patient has stigmata of chronic liver failure and liver cirrhosis. No signs of any delirium tremens for now. The patient had a blood w ork that showed a white cell count of 11.7 with a hemoglobin of 10.7 and a platelet count of 145. Sodium is at 123, potassium level is at 3.8, chloride is 88 and the patient has normal renal function and a creatinine of 0.4. Sodium level remains obviously low. 07/10/2022, the patient is post another paracentesis with removal of 4.3 L of fluids. I started this patient on IV Rocephin yesterday due to concerns of SBP. I also noted an area of infection in the lower extremity, suggestive of cell ulitis. For that reason, she was started on IV Rocephin. She is doing well for now. No shortness of breath compared to yesterday. She remains on IV Rocephin. The blood work from today is showing a sodium level of 132, BUN is at 5 the creatinine of 0.4 and a potassium level of 4.0. The magnesium level is 1.7. The urine culture that was obtained on 06/19/2022 was positive for E. coli. No other cultures since. 07/11/2022, no signs of any hepatic encephalopathy, awake and alert and communic ating, having regular bowel movements, no fever, remains on IV Rocephin, cellulitis of the left lower extremity/foot is slightly improved and the area is less painful although it still erythematous and red. X-ray was done. No evidence of any gas bubbles or foreign bodies. No evidence of any fractures. 07/12/2022, patient is resting comfortably in bed. On her blood work, her sodium level is at 131 with a potassium level of 4.6 with a BUN of 10 and a creatinine of 0.6. The white cell count at 6.7 with a hemoglobin of 9.8. She remains on IV Rocephin. She remains on Demadex. She is also taking lactulose. Midodrine for chronic hypotension. Cellulitis is being monitored in the left foot. She is on room air oxygen with a pulse ox of 96%. 07/13/2022, the patient's is looking well. She is on room air oxygen. Cellulitis of the swelling in the left foot is also improving. The area is less erythematous and less swollen today's evaluation. No new complaints otherwise. No signs of any encephalopathy. I reviewed the blood work from today electrolytes are all within normal limits.. Renal function is within normal limits. No other acute abnormalities of the notice. Objective - Vital Signs Vital signs: Vital Signs Temp 98.9 F 07/13/22 08:21 Pulse 93 07/13/22 08:21 Resp 17 07/13/22 08:21 BP 111/66 07/13/22 08:21 Pulse Ox 94 L 07/13/22 08:21 FiO2 Intake & Output 07/12/22 07/13/22 07/13/22 18:59 06:59 18:59 Weight 80 kg Other: Voiding Method Diaper Diaper Diaper Incontinent Incontinent Incontinent External Catheter # Voids 4 6 - Exam No acute distress, confused, currently on no supplemental oxygen. Saturations are 96%. HEENT examination is grossly unremarkable. Scleral icterus is noted. Neck supple. Full range of motion. No adenopathy thyromegaly or neck vein distention. Cardiovascular examination reveals regular rhythm rate. S1-S2 normal. No S3 or S4. No discernible murmur noted. Lungs reveal clear breath sounds. Breath sounds are equal bilaterally. No adventitious lung sounds including wheezes rhonchi or crackles. Abdomen soft bowel sounds are heard. No masses or tenderness. Extremities are intact. No cyanosis or clubbing. 1+ pitting edema is noted in the lower extremities. Skin is without rash or lesion. Neurologic examination is brief but nonfocal. - Labs CBC & Chem 7: 07/13/22 06:53 07/13/22 06:53 Labs: Abnormal Lab Results - Last 24 Hours (Table) 07/13/22 07/13/22 Range/Units 06:53 06:53 RBC 2.61 L (4.10-5.20) X 10*6/uL Hgb 10.0 L (12.0-15.0) g/dL Hct 28.6 L (37.2-46.3) % MCV 109.6 H (80.0-97.0) fL MCH 38.3 H (27.0-32.0) pg RDW 16.2 H (11.5-14.5) % Monocytes # 1.03 H (0.20-1.00) X 10*3/uL Sodium 130 L (135-145) mmol/L Chloride 95 L (96-109) mmol/L Carbon Dioxide 28.2 H (20.0-27.5) mmol/L Anion Gap 6.70 L (10.00-18.00) mmol/L BUN 8.3 L (9.0-27.0) mg/dL Calcium 8.4 L (8.7-10.3) mg/dL Total Bilirubin 3.60 H (0.30-1.20) mg/dL AST 87 H (13-35) U/L C-Reactive Protein 1.70 H (0.00-0.80) mg/dL Total Protein 5.1 L (6.2-8.2) g/dL Albumin 3.0 L (3.8-4.9) g/dL Albumin/Globulin Ratio 1.41 L (1.60-3.17) g/dL Assessment and Plan Plan: Severe hyponatremia secondary to excessive alcohol use, sodium levels improved Ascites, post another thoracentesis and removal of 4 L of fluid. The patient received significant symptomatic relief post paracentesis Alcoholism. Suspect liver cirrhosis and ascites. Benign essential hypertension. Hypomagnesemia. Alcoholic hepatitis. Acute urinary tract infection secondary to E. coli. acute cellulitis, left foot with erythema and redness and swelling, improving Plan: Cellulitis has further improved Continue IV Rocephin Fluid restriction Review midodrine for blood pressure control Continue Aldactone Continue torsemide Continue lactulose for hepatic encephalopathy Monitor electrolytes We'll follow We'll see the patient on as-needed basis. Condition is stable for now.
--- NOTE | 2022-07-13 16:21 | P.PN ---
Subjective Progress Note Date: 07/13/22 Principal diagnosis: Left foot cellulitis versus hematoma Patient is a 71-year-old female has been the hospital for more than 2 weeks presented with the nausea vomiting patient with alcoholic liver cirrhosis status post paracentesis 2 and did have a significant swelling and some erythema to the left for consult for possible cellulitis. On today's evaluation that is 07/13/2022, the patient denies having any fever or any chills, the patient is breathing comfortably denies any worsening pain to the left foot area no chest pain shortness of breath or cough no abdominal pain or diarrhea Objective - Vital Signs Vital signs: Vital Signs Temp 98.9 F 07/13/22 08:21 Pulse 93 07/13/22 08:21 Resp 17 07/13/22 08:21 BP 111/66 07/13/22 08:21 Pulse Ox 94 L 07/13/22 08:21 FiO2 Intake & Output 07/12/22 07/13/22 07/13/22 18:59 06:59 18:59 Weight 80 kg Other: Voiding Method Diaper Diaper Diaper Incontinent Incontinent Incontinent External Catheter # Voids 4 6 - Labs CBC & Chem 7: 07/13/22 06:53 07/13/22 06:53 Labs: Abnormal Lab Results - Last 24 Hours (Table) 07/13/22 07/13/22 Range/Units 06:53 06:53 RBC 2.61 L (4.10-5.20) X 10*6/uL Hgb 10.0 L (12.0-15.0) g/dL Hct 28.6 L (37.2-46.3) % MCV 109.6 H (80.0-97.0) fL MCH 38.3 H (27.0-32.0) pg RDW 16.2 H (11.5-14.5) % Monocytes # 1.03 H (0.20-1.00) X 10*3/uL Sodium 130 L (135-145) mmol/L Chloride 95 L (96-109) mmol/L Carbon Dioxide 28.2 H (20.0-27.5) mmol/L Anion Gap 6.70 L (10.00-18.00) mmol/L BUN 8.3 L (9.0-27.0) mg/dL Calcium 8.4 L (8.7-10.3) mg/dL Total Bilirubin 3.60 H (0.30-1.20) mg/dL AST 87 H (13-35) U/L C-Reactive Protein 1.70 H (0.00-0.80) mg/dL Total Protein 5.1 L (6.2-8.2) g/dL Albumin 3.0 L (3.8-4.9) g/dL Albumin/Globulin Ratio 1.41 L (1.60-3.17) g/dL Assessment and Plan (1) Hematoma of left foot Current Visit: Yes Status: Acute Code(s): S90.32XA - CONTUSION OF LEFT FOOT, INITIAL ENCOUNTER SNOMED Code(s): [id number] Plan: 1patient with a left foot swelling and redness that has been going on for couple of days to week in this patient who do have a history of cirrhosis of the liver and did have paracentesis x2 during this admission with question of possible fluid overload question of hematoma/seroma underlying abscess less likely in this patient with no fever elevated white count but not entirely excluded. 2 CT of the foot was reviewed with radiologist and looks more of a hematoma rather than an abscess 3advised Pranay wrap to the left foot from just above the toe to above the ankle area and may continue empiric Rocephin Time with Patient: Less than 30
--- NOTE | 2022-07-13 19:10 | P.PN ---
Subjective Progress Note Date: 07/13/22 This is a 71-year-old female who was recently brought to the emergency room with nausea and vomiting and generalized weakness and having decreased urine output and increase in abdominal distention. Patient does have past medical history of rheumatoid arthritis and daily alcohol use and CT of the abdomen showed a heterogenicity of the liver which appears new and could be related to hepatitis or cirrhosis with a moderate abdominal ascites noted and sigmoid diverticulosis. Multiple medical consultations including pulmonary, GI, nephrology following and patient was maintained in the ICU for quite some time on hypertonic solution. Patient continues on Lasix drip along with antibiotics. Patient con tinues to be extremely lethargic and will continue with lactulose 20 mg twice a day. Patient was started on antibiotics for UTI. Multiple electrolyte abnormalities as well and sodium is 127 today. Potassium is 3.5, current creatinine is 0.7 and total bili is 3.7. Recommend repeat labs. 07/05/2021 Patient is seen today in follow up and is currently sitting up in the chair and mentation is somewhat improved. Patient sodium continued to be low and nephrology following . Planning ecf and case management following. Patient is off lasix drip maintained on IV push Lasix with nephrology following. Recommend repeat labs in the a.m. Patient continues on ceftriaxone with urine cultures finalizing E. coli and will continue short course of oral antibiotics on discharge. Case management is following and working on accepting facilities with insurance authorization. Encouraged oral intake and continued physical therapy daily. Potassium again low at 3.0 and will replace per protocol and will add daily supplements. Recommend to replace as needed. Patient to be given a dose of samsca per nephrology. Recommend [place] catheter removal as well. 07/06/2022 Patient is seen and evaluated in follow-up today currently sitting up in the chair more awake and alert and appropriate to commands and questions. Patient continues with some confusion although much more appropriate today. Patient is maintained on IV antibiotics in the form of ceftriaxone and urine culture has finalized with E. coli with sensitivities and will continue for now. Patient is being followed closely by nephrology and maintained on IV push Lasix recommending another 24 hours and close monitoring of kidney functions along with electrolytes. Patient was given a dose of Samsca yesterday again today and current sodium mildly elevated up to 128 today. Potassium remains low at 3.2 and will replace per protocol and recommend daily supplementation of potassium. Patient is afebrile with no reports of nausea or vomiting noted. Recommend fluid restrictions as well. Recommend PT/OT therapy daily. Case management following as well as patient will likely need ECF for continued weakness. Patient and family are agreeable with this plan. 07/09/2022 Patient is seen and evaluated in follow-up this morning mentation improving and being followed by nephrology. Patient's sodium back down to 123 with a potassium at 3.8 mL was also found to be low at 1.7. Oral intake is fair to poor and not eating very well. Patient ammonia level within normal limits and will titrate the dose down to daily and monitor for at least 2-3 bowel movements. Patient also with some abdominal distention today and ultrasound of the abdomen was ordered for possible paracentesis. Patient did receive a previous paracentesis on this admission. Will await report. Patient continues with weakness and being followed by physical therapy daily encouraged increased activity as tolerated. Case management is following working on an accepting facility. Patient has received adequate amount of IV antibiotics for UTI E. coli and will discontinue ceftriaxone at this time. Recommend repeat labs and will continue to monitor the patient closely. 07/10/2022 Patient is seen this morning and more awake and alert today. Oral intake is fair and maintained on fluid restrictions. Patient is post paracentesis yesterday of about 4 L removed. Nephrology following and sodium is improved as well to 132 today post samsca. Patient was treated for UTI and abx were discontinued although resumed as her left foot is red and swollen. Will continue for now and monitor the foot. Possible cellulitis. Encouraged oral intake and increased activity as tolerated. Case management following and working on an accepting facility. Patient is afebrile and denies chest pain or shortness of breath. No reports of nausea or vomiting and tolerating diet. Continue fluid restrictions and is maintained on aldactone. Torsemide being added. 07/11/2022 Patient is seen in follow-up this morning more awake with nephrology and pulmonary following. Patient was resumed on IV ceftriaxone for left lower extremity cellulitis and will order foot x-ray. Patient continues to report discomfort of the left lower extremity with some erythema noted and there is joseph e signs of cellulitis with questionable hematoma at the site as well. Patient does not recall striking her hitting her foot although is somewhat confused at times. Patient is afebrile with no white count denies chest pain or shortness of breath. Patient's sodium is slightly improved at 130 today and is post paracentesis of approximately 4.3 L removed. Patient has been started on torsemide and is continued on Aldactone and will continue. Recommend continue with lactulose to titrate for 2-3 bowel movements daily. Patient per nursing staff has been refusing at times as she does not want to have continuous diarrhea multiple times throughout the day. Encourage the importance of taking medications as prescribed. Case management is also following working on [facility] facility that are accepting. Per nursing staff patient was reporting some chest tightness with associated anxiety and will order troponin along with EKG and chest x-ray. Low-dose Xanax was ordered as well. 07/12/2022 Patient is seen today with no acute overnight issues noted. Patient reports to some anxiety and asking for something. Patient with some abdominal distention although soft and currently not reporting any pain. Patient is continued on ceftriaxone and obtained x-ray of the left foot showing to correlate for cellulitis, edema, abscess with no fractures or dislocations noted and no. No suggestion of osteomyelitis evident. Patient CBC within normal limits and sodium is 131 today although magnesium again is 1.4 and will increase magnesium oxide and also replace per protocol. Follow-up with repeat labs. Patient is anxious and wanting to work with physical therapy and continues with weakness. Continue with fluid restrictions and current medication regimen. Infectious disease has been consulted and pending for input and recommendations of the left foot. Attempted Pranay wraps to help with swelling although patient did not tolerate well and took the Pranay wrap soft. 07/13/2022 Patient is seen and evaluated in follow-up today. Patient reports to feeling abdominal fullness and will obtain abdominal ultrasound with possible IR consult. Infectious disease has been consulted recommend continuing with antibiotics and Pranay wrapping the left lower extremity. Some erythema and swelling is improved and patient reports less pain. Patient is having generalized pain and did well with Ultram will add as needed and discuss with nursing staff about closely monitoring mentation as patient was initially altered. Patient also not eating much as she reports she does not like the dysphagia diet and will reconsult speech to evaluate as patient is much more awake and alert. She continues with weakness and recommend physical therapy daily. Patient did not tolerate the Pranay wrap very well and discussed with the patient again about wearing the Pranay wrap throughout the day and elevating the extremity and taking the Pranay wrap off at night. Patient is afebrile denies chest pain or shortness of breath. Patient denies nausea or vomiting and tolerating diet. Review of systems: Constitutional: No reports of fatigue, fever, or chills Cardiovascular: No reports of chest pain or palpitations Respiratory: No reports of shortness of breath or cough GI: No reports of nausea, vomiting, reports no bowel movement today, poor oral intake although feels is improving slightly although reports she is not liking the dysphagia diet due to its texture : No reports of dysuria or retention Neurovascular: reports of generalized weakness , reports some left foot pain and redness All medications have been reviewed Active Medications Folic Acid (Folic Acid 1 Mg Tab) 1 mg PO DAILY [facility] Last Admin: 07/13/22 08:02 Dose: 1 mg Heparin Sodium (Porcine) (Heparin Sodium,Porcine/Pf 5,000 Unit/0.5 Ml Syringe) 5,000 unit SQ Q8HR [facility] Last Admin: 07/13/22 08:02 Dose: 5,000 unit Ceftriaxone Sodium 1 gm/ (Sodium Chloride) 50 mls @ 100 mls/hr IVPB Q24HR [facility]; Protocol Last Admin: 07/13/22 08:02 Dose: 100 mls/hr Lactulose (Lactulose 20 Gm/30 Ml Cup) 30 gm PO DAILY PRN PRN Reason: Constipation Lorazepam (Lorazepam 1 Mg/0.5 Ml Vial) 1 mg IV Q1HR PRN PRN Reason: CIWA 10 to 15 Last Admin: 06/30/22 23:41 Dose: 1 mg Lorazepam (Lorazepam 1 Mg/0.5 Ml Vial) 1 mg IV Q2HR PRN PRN Reason: CIWA 8 or 9 Last Admin: 06/30/22 05:16 Dose: 1 mg Magnesium Oxide (Magnesium Oxide 400 Mg Tab) 400 mg PO TID [facility] Last Admin: 07/13/22 08:01 Dose: 400 mg Midodrine (Midodrine 5 Mg Tab) 10 mg PO AC-TID [facility] Last Admin: 07/13/22 13:35 Dose: Not Given Miscellaneous Information (Magnesium Replacement Protocol 1 Each Misc) 1 each MISCELLANE DAILY PRN; Protocol PRN Reason: Per Protocol Miscellaneous Information (Potassium Replacement Protocol 1 Each Misc) 1 each MISCELLANE DAILY PRN; Protocol PRN Reason: Per Protocol Miscellaneous Information (Magnesium Replacement Protocol 1 Each Misc) 1 each MISCELLANE DAILY PRN; Protocol PRN Reason: Per Protocol Multivitamins (Multivitamins, Thera 1 Each Tab) 1 each PO DAILY [facility] Last Admin: 07/13/22 08:01 Dose: 1 each Naloxone HCl (Naloxone 0.4 Mg/Ml 1 Ml Vial) 0.2 mg IV Q2M PRN PRN Reason: Opioid Reversal Ondansetron HCl (Ondansetron 4 Mg/2 Ml Vial) 4 mg IVP Q6HR PRN PRN Reason: Nausea And Vomiting Last Admin: 07/08/22 08:24 Dose: 4 mg Pantoprazole Sodium (Pantoprazole 40 Mg Tablet) 40 mg PO AC-BRKFST [facility] Last Admin: 07/13/22 08:01 Dose: 40 mg Spironolactone (Spironolactone 25 Mg Tab) 25 mg PO DAILY [facility] Last Admin: 07/13/22 08:02 Dose: 25 mg Thiamine HCl (Thiamine 100 Mg Tab) 100 mg PO DAILY [facility] Last Admin: 07/13/22 08:02 Dose: 100 mg Torsemide (Torsemide 20 Mg Tab) 20 mg PO DAILY [facility] Last Admin: 07/13/22 08:01 Dose: 20 mg Tramadol HCl (Tramadol 50 Mg Tab) 50 mg PO TID PRN PRN Reason: Pain PHYSICAL EXAMINATION: GENERAL: The patient is more awake and sitting up in bed today, continues to be more alert each day, Well developed, well nourished. HEENT: Pupils are round and equally reacting to light. EOMI. scleral icterus. No conjunctival pallor. Normocephalic, atraumatic. No pharyngeal erythema. No thyromegaly. CARDIOVASCULAR: S1 and S2 muffled PULMONARY: diminished breath sounds bilaterally with no wheezing or rhonchi noted. ABDOMEN: soft. Nontender on exam. obese. non-distended, normoactive bowel sounds. No palpable organomegaly. MUSCULOSKELETAL: No joint swelling or deformity. EXTREMITIES: No cyanosis, clubbing, or pedal edema. NEUROLOGICAL: Gross neurological examination did not reveal any focal deficits. Diffuse weakness SKIN: No rashes. Left dorsal foot redness and swelling noted with intact skin with possible in appearance of a hematoma and possible other fluid collection bubble is intact noted on the dorsum Assessment: Hyponatremia likely hypoosmolar with decreased oral intake. Intractable nausea and vomiting and decreased oral intake, nausea and vomiting has improved Acute alcohol withdrawal symptoms, currently no signs of withdrawal Acute alcoholic hepatitis Ascites post paracentesis x2 this admission. 07-09-22 with 4 liters removed E. coli urinary tract infection, treated possible left foot cellulitis, possible hematoma as noted on CT of the foot Liver cirrhosis likely alcohol related Hyperbilirubinemia Alcohol abuse Hypomagnesemia 0.9 Anxiety Macrocytosis MCV 107.0 due to alcohol abuse GI prophylaxis DVT prophylaxis Full code Plan: Recommend to continue with current medications and management with nephrology following closely. Pulmonary following as well. Patient restarted on antibiotics for possible left foot cellulitis as it is erythematous, warm, swollen, and painful to the touch. X-ray of the foot shows to correlate for cellulitis, edema, abscess with no periostitis to suggest osteomyelitis with no fractures or dislocations noted. Erythema slightly improved from yesterday's exam and will continue ceftriaxone. Infectious disease following and underwent left foot CT which was suggesting possible hematoma. Patient is maintained on torsemide and Aldactone. Attempted Pranay wrap to that lower extremity and encourage the patient to elevate while at rest. Patient did not tolerate the Pranay wrap well and took it off. Discussed with patient and nurse about wearing the pranay wrap during the day but off at night. Patient agreed. Continue with lactulose although will titrate the dose down to daily as patient has been having multiple bowel movements and ammonia levels within normal limits. Recommend lactulose daily not as needed. AM labs pending. Consult to speech to see if we can advance diet per patient request as she feels the poor oral intake is due to her not liking the texture of the food. Strongly encouraged aspiration precautions with head of bed elevated and supervision with meals. Patient maintained on fluid restrictions and will continue. Case management is following working on accepting facility for ECF for continued PT/OT therapy. Recommend repeat am labs. Abdominal ultrasound shows ascites and IR consulted and unable to perform until Saturday due to no available space in their schedule. Due to multiple complex medical issues, prognosis is guarded. The impression and plan of care has been dictated by Bee Pichardo, nurse practitioner as directed. Dr. Ruiz MD I have performed a history and examination and MDM of this patient, discussed the same with the dictator, and agree with the dictator's assessment and plan as written ,documented as a scribe. Based on total visit time, I have performed more than 50% of the visit. Any additional findings or plans will be noted. Objective - Vital Signs Vital signs: Vital Signs Temp 98.9 F 07/13/22 08:21 Pulse 93 07/13/22 08:21 Resp 17 07/13/22 08:21 BP 111/66 07/13/22 08:21 Pulse Ox 94 L 07/13/22 08:21 FiO2 Intake & Output 07/12/22 07/13/22 07/13/22 18:59 06:59 18:59 Other: Voiding Method Diaper Diaper Incontinent Incontinent # Voids 4 6 - Labs CBC & Chem 7: 07/13/22 06:53 07/13/22 06:53 Labs: Abnormal Lab Results - Last 24 Hours (Table) 07/12/22 Range/Units 07:20 RBC 2.54 L (4.10-5.20) X 10*6/uL Hgb 9.8 L (12.0-15.0) g/dL Hct 27.4 L (37.2-46.3) % MCV 107.9 H (80.0-97.0) fL MCH 38.6 H (27.0-32.0) pg RDW 16.3 H (11.5-14.5) %
[2022-07-13] MEDS: traMADol 50 MG TAB PO PRN (20:38)
[2022-07-14] MEDS: HEPARIN SODIUM,PORCINE/PF 5,000 UNIT/0.5 ML SYRINGE SQ SCH ×4 (00:02→23:22)
[2022-07-14] MEDS: traMADol 50 MG TAB PO PRN ×2 (04:52→20:58)
[2022-07-14] MEDS: SPIRONOLACTONE 25 MG TAB PO SCH (07:59)
[2022-07-14] MEDS: PANTOPRAZOLE 40 MG TABLET PO SCH (07:59)
[2022-07-14] MEDS: FOLIC ACID 1 MG TAB PO SCH (07:59)
[2022-07-14] MEDS: MAGNESIUM OXIDE 400 MG TAB PO SCH ×3 (07:59→20:56)
[2022-07-14] MEDS: MIDODRINE 5 MG TAB PO SCH ×3 (07:59→16:50)
[2022-07-14] MEDS: THIAMINE 100 MG TAB PO SCH (07:59)
[2022-07-14] MEDS: MULTIVITAMINS, THERA 1 EACH TAB PO SCH (07:59)
[2022-07-14] MEDS: TORSEMIDE 20 MG TAB PO SCH (08:00)
--- NOTE | 2022-07-14 08:12 | P.PN ---
Subjective Progress Note Date: 07/14/22 Principal diagnosis: This is 71-year-old female followed up with hyponatremia to severe on admission at 106, associated with liver disease and likely cirrhosis, with history of connor ly alcohol intake. She was given Samsca on 07/09/2022 as well as had a 4.3 L paracentesis on 07/09/2022 Her appetite remains poor. She is on 50 mL fluid restriction. She is unable to walk. No nausea vomiting diarrhea. Complains of some shortness of breath but she is on room air currently Objective - Vital Signs Vital signs: Vital Signs Temp 97.9 F 07/14/22 07:56 Pulse 96 07/14/22 07:56 Resp 16 07/14/22 07:56 BP 118/66 07/14/22 07:56 Pulse Ox 93 L 07/14/22 07:56 FiO2 Intake & Output 07/13/22 07/14/22 07/14/22 18:59 06:59 18:59 Intake Total 237 Output Total 700 Balance -700 237 Weight 80 kg Intake: Oral 237 Output: Urine 700 Other: Voiding Method Diaper Diaper Incontinent Incontinent External Catheter External Catheter # Voids 1 On exam patient is awake alert oriented. No JVP noted neck supple no facial asymmetry Lungs clear to auscultation good air entry bilaterally Heart sounds unremarkable for any murmur rub gallop Abdomen soft and minimally distended Extreme exam was trace edema Neurologically awake alert oriented - Labs CBC & Chem 7: 07/13/22 06:53 07/13/22 06:53 Labs: Abnormal Lab Results - Last 24 Hours (Table) 07/13/22 07/13/22 Range/Units 06:53 06:53 RBC 2.61 L (4.10-5.20) X 10*6/uL Hgb 10.0 L (12.0-15.0) g/dL Hct 28.6 L (37.2-46.3) % MCV 109.6 H (80.0-97.0) fL MCH 38.3 H (27.0-32.0) pg RDW 16.2 H (11.5-14.5) % Monocytes # 1.03 H (0.20-1.00) X 10*3/uL Sodium 130 L (135-145) mmol/L Chloride 95 L (96-109) mmol/L Carbon Dioxide 28.2 H (20.0-27.5) mmol/L Anion Gap 6.70 L (10.00-18.00) mmol/L BUN 8.3 L (9.0-27.0) mg/dL Calcium 8.4 L (8.7-10.3) mg/dL Total Bilirubin 3.60 H (0.30-1.20) mg/dL AST 87 H (13-35) U/L C-Reactive Protein 1.70 H (0.00-0.80) mg/dL Total Protein 5.1 L (6.2-8.2) g/dL Albumin 3.0 L (3.8-4.9) g/dL Albumin/Globulin Ratio 1.41 L (1.60-3.17) g/dL Assessment and Plan Assessment: Impression 1. Hyponatremia secondary to cirrhosis, intravascular volume depletion with trace edema, treated with Samsca on 07/09/2022. Currently on 1500 mL fluid restriction, sodium is slowly going down from 1:30 to all the last 3 days to 1:30 yesterday on 07/13/2022. Creatinine is 0.6 BUN is 8.3. Bicarb slightly high at 28.2 2. Cirrhosis with alcohol history 3. Status post paracentesis on 07/09/2022, 4.2 L. 4. Mild metabolic alkalosis, likely from diuresis. Currently on Aldactone 25 mg daily. 5. Cellulitis of left foot. Recommendation 1. Reduce fluid intake restriction to 1000 mL 2. Check orthostatic changes 3. Monitor last 4. Encourage protein intake
[2022-07-14] MEDS: LACTULOSE 20 GM/30 ML CUP PO PRN (12:02)
[2022-07-14] MEDS: ONDANSETRON 4 MG/2 ML VIAL IVP PRN (12:39)
--- NOTE | 2022-07-14 13:09 | P.PN ---
Subjective Progress Note Date: 07/14/22 On today's evaluation of 07/09/2020, the patient has normocytic history complaints. Abdomen is slightly distended and another ultrasound was obtained which will again revealed some ascites. Otherwise, the patient continues to have some increased lower oximetry edema and I also noted this in the past inv olving the dorsal aspect of the left lower extremity. For that reason, the patient was started on IV Rocephin. No signs of any acute hepatic encephalopathy. The patient has stigmata of chronic liver failure and liver cirrhosis. No signs of any delirium tremens for now. The patient had a blood w ork that showed a white cell count of 11.7 with a hemoglobin of 10.7 and a platelet count of 145. Sodium is at 123, potassium level is at 3.8, chloride is 88 and the patient has normal renal function and a creatinine of 0.4. Sodium level remains obviously low. 07/10/2022, the patient is post another paracentesis with removal of 4.3 L of fluids. I started this patient on IV Rocephin yesterday due to concerns of SBP. I also noted an area of infection in the lower extremity, suggestive of cell ulitis. For that reason, she was started on IV Rocephin. She is doing well for now. No shortness of breath compared to yesterday. She remains on IV Rocephin. The blood work from today is showing a sodium level of 132, BUN is at 5 the creatinine of 0.4 and a potassium level of 4.0. The magnesium level is 1.7. The urine culture that was obtained on 06/19/2022 was positive for E. coli. No other cultures since. 07/11/2022, no signs of any hepatic encephalopathy, awake and alert and communic ating, having regular bowel movements, no fever, remains on IV Rocephin, cellulitis of the left lower extremity/foot is slightly improved and the area is less painful although it still erythematous and red. X-ray was done. No evidence of any gas bubbles or foreign bodies. No evidence of any fractures. 07/12/2022, patient is resting comfortably in bed. On her blood work, her sodium level is at 131 with a potassium level of 4.6 with a BUN of 10 and a creatinine of 0.6. The white cell count at 6.7 with a hemoglobin of 9.8. She remains on IV Rocephin. She remains on Demadex. She is also taking lactulose. Midodrine for chronic hypotension. Cellulitis is being monitored in the left foot. She is on room air oxygen with a pulse ox of 96%. 07/13/2022, the patient's is looking well. She is on room air oxygen. Cellulitis of the swelling in the left foot is also improving. The area is less erythematous and less swollen today's evaluation. No new complaints otherwise. No signs of any encephalopathy. I reviewed the blood work from today electrolytes are all within normal limits.. Renal function is within normal limits. No other acute abnormalities of the notice. 07/14/2022, patient remains on IV Rocephin. Clinically stable. No new complaints. E. coli in the urine has been treated. No new labs are available from today. No evident encephalopathy. At times slightly more lethargic. She is on lactulose and she is having a single daily soft bowel movement. No falls. No other new complaints otherwise for now. Cellulitis itself is improving. Objective - Vital Signs Vital signs: Vital Signs Temp 97.9 F 07/14/22 07:56 Pulse 98 07/14/22 11:02 Resp 16 07/14/22 07:56 BP 108/62 07/14/22 11:02 Pulse Ox 93 L 07/14/22 07:56 FiO2 Intake & Output 07/13/22 07/14/22 07/14/22 18:59 06:59 18:59 Intake Total 237 Output Total 700 Balance -700 237 Weight 80 kg Intake: Oral 237 Output: Urine 700 Other: Voiding Method Diaper Diaper Diaper Incontinent Incontinent Incontinent External Catheter External Catheter External Catheter # Voids 1 - Exam No acute distress, confused, currently on no supplemental oxygen. Saturations are 96%. HEENT examination is grossly unremarkable. Scleral icterus is noted. Neck supple. Full range of motion. No adenopathy thyromegaly or neck vein distention. Cardiovascular examination reveals regular rhythm rate. S1-S2 normal. No S3 or S4. No discernible murmur noted. Lungs reveal clear breath sounds. Breath sounds are equal bilaterally. No adventitious lung sounds including wheezes rhonchi or crackles. Abdomen soft bowel sounds are heard. No masses or tenderness. Extremities are intact. No cyanosis or clubbing. 1+ pitting edema is noted in the lower extremities. Skin is without rash or lesion. Neurologic examination is brief but nonfocal. - Labs CBC & Chem 7: 07/13/22 06:53 07/13/22 06:53 Labs: Microbiology - Last 24 Hours (Table) 07/13/22 06:53 Blood Culture - Preliminary Blood No Growth after 24 hours Assessment and Plan Plan: Severe hyponatremia secondary to excessive alcohol use, sodium levels improved Ascites, post another thoracentesis and removal of 4 L of fluid. The patient received significant symptomatic relief post paracentesis Alcoholism. Suspect liver cirrhosis and ascites. Benign essential hypertension. Hypomagnesemia. Alcoholic hepatitis. Acute urinary tract infection secondary to E. coli. acute cellulitis, left foot with erythema and redness and swelling, improving Plan: Continue same treatment Cellulitis has further improved and there is obvious clinical improvement in the left lower foot cellulitis Continue IV Rocephin Fluid restriction Review midodrine for blood pressure control Continue Aldactone Continue torsemide Continue lactulose for hepatic encephalopathy Monitor electrolytes We'll follow Clinically stable. We'll sign off.
[2022-07-14 13:11] LABS: African American GFR (CKD) >90 (>60 ml/min/1.73 sqM); Anion Gap 10 mmol/L; Blood Urea Nitrogen 10 mg/dL (7-17); Carbon Dioxide 28 mmol/L (22-30); Chloride 92 mmol/L (98-107); Glucose 111 mg/dL (74-99); Magnesium 1.5 mg/dL (1.6-2.3); Non-African American GFR(CKD) >90 (>60 ml/min/1.73 sqM); Potassium 4.1 mmol/L (3.5-5.1); Sodium 130 mmol/L (137-145)
[2022-07-14] MEDS ORDERED: Magnesium Replacement Protocol 1 EACH MISC MISCELLANE PRN (14:05)
[2022-07-14] MEDS: MAGNESIUM SULFATE-D5W PMX 1 GM in DEXTROSE/WATER 1 100ML.BAG IVPB SCH ×2 (14:10→15:21)
--- NOTE | 2022-07-14 21:58 | P.PN ---
Subjective Progress Note Date: 07/14/22 Principal diagnosis: Left foot cellulitis versus hematoma Patient is a 71-year-old female has been the hospital for more than 2 weeks presented with the nausea vomiting patient with alcoholic liver cirrhosis status post paracentesis 2 and did have a significant swelling and some erythema to the left for consult for possible cellulitis. On today's evaluation that is 07/14/2022, the patient is afebrile, the patient is breathing comfortably on room air , pt denies any worsening pain to the left foot area no chest pain shortness of breath or cough no abdominal pain or diarrhea Objective - Vital Signs Vital signs: Vital Signs Temp 97.9 F 07/14/22 07:56 Pulse 98 07/14/22 11:02 Resp 16 07/14/22 07:56 BP 108/62 07/14/22 11:02 Pulse Ox 93 L 07/14/22 07:56 FiO2 Intake & Output 07/13/22 07/14/22 07/14/22 18:59 06:59 18:59 Intake Total 237 Output Total 700 Balance -700 237 Weight 80 kg Intake: Oral 237 Output: Urine 700 Other: Voiding Method Diaper Diaper Diaper Incontinent Incontinent Incontinent External Catheter External Catheter External Catheter # Voids 1 - Labs CBC & Chem 7: 07/13/22 06:53 07/14/22 11:48 Labs: Abnormal Lab Results - Last 24 Hours (Table) 07/14/22 Range/Units 11:48 Sodium 130 L (137-145) mmol/L Chloride 92 L (98-107) mmol/L Glucose 111 H (74-99) mg/dL Calcium 8.0 L (8.4-10.2) mg/dL Magnesium 1.5 L (1.6-2.3) mg/dL Microbiology - Last 24 Hours (Table) 07/13/22 06:53 Blood Culture - Preliminary Blood No Growth after 24 hours Assessment and Plan (1) Hematoma of left foot Current Visit: Yes Status: Acute Code(s): S90.32XA - CONTUSION OF LEFT FOOT, INITIAL ENCOUNTER SNOMED Code(s): [id number] Plan: 1patient with a left foot swelling and redness that has been going on for couple of days to week in this patient who do have a history of cirrhosis of the liver and did have paracentesis x2 during this admission with question of possible fluid overload question of hematoma/seroma underlying abscess less likely in this patient with no fever elevated white count but not entirely excluded. 2 CT of the foot was reviewed with radiologist and looks more of a hematoma rather than an abscess 3Pt advised Pranay wrap to the left foot, however she is refusing , pt may continue empiric Rocephin Time with Patient: Less than 30
[2022-07-15] MEDS: traMADol 50 MG TAB PO PRN ×2 (02:21→13:56)
[2022-07-15] MEDS: LACTULOSE 20 GM/30 ML CUP PO PRN (07:54)
--- NOTE | 2022-07-15 08:30 | P.PN ---
Subjective Progress Note Date: 07/15/22 Principal diagnosis: This is 71-year-old female followed up with hyponatremia with serum sodium on admission at 106, associated with liver disease and likely cirrhosis, with history of daily alcohol intake. She was given Samsca on 07/09/2022 as well as had a 4.3 L paracentesis on 07/09/2022 Her appetite remains poor. She is on protein supplements but is having a hard time taking it. She is on 1500 mL fluid restriction. She is unable to walk because of weakness. No nausea vomiting diarrhea. Complains of some shortness of breath but she is on room air currently. Her urine output is documented at thousand cc, labs today are pending, yesterday sodium is 1:30 stable Objective - Vital Signs Vital signs: Vital Signs Temp 98.4 F 07/15/22 01:10 Pulse 89 07/15/22 01:10 Resp 17 07/15/22 01:10 BP 115/57 07/15/22 01:10 Pulse Ox 95 07/15/22 01:10 FiO2 Intake & Output 07/14/22 07/15/22 07/15/22 18:59 06:59 18:59 Intake Total 210 Output Total 1000 Balance -790 Intake: Oral 210 Output: Urine 1000 Other: Voiding Method Diaper External Catheter Incontinent External Catheter Examination awake alert oriented minimally jaundiced No facial asymmetry noted Lungs are clear to auscultation good air entry bilaterally Heart sounds unremarkable no murmur rub gallop Abdomen slightly distended minimal ascites clinically Extremity examination trace edema Neurologically awake alert oriented. - Labs CBC & Chem 7: 07/13/22 06:53 07/14/22 11:48 Labs: Abnormal Lab Results - Last 24 Hours (Table) 07/14/22 Range/Units 11:48 Sodium 130 L (137-145) mmol/L Chloride 92 L (98-107) mmol/L Glucose 111 H (74-99) mg/dL Calcium 8.0 L (8.4-10.2) mg/dL Magnesium 1.5 L (1.6-2.3) mg/dL Microbiology - Last 24 Hours (Table) 07/13/22 06:53 Blood Culture - Preliminary Blood No Growth after 24 hours Assessment and Plan Assessment: Impression 1. Hyponatremia secondary to cirrhosis, intravascular volume depletion with trace edema, treated with Samsca on 07/09/2022. Currently on 1000 mL fluid restriction, sodium is slowly going down from 1:32 last 3 days to 1:30 yesterday on 07/14/2022. Creatinine is 0.5 and bun is 10 Bicarb slightly high at 28 2. Cirrhosis with alcohol history, minimally jaundiced volume is 3.6 yesterday 3. Status post paracentesis on 07/09/2022, 4.2 L. 4. Mild metabolic alkalosis, likely from diuresis. Currently on Aldactone 25 mg daily. 5. Cellulitis of left foot. Recommendation 1. Maintain fluid intake restriction to 1000 mL 2. Blood pressure yesterday standing was 108/62 and sitting was 113/70 3. Monitor last 4. Encourage protein intake
[2022-07-15] MEDS: MIDODRINE 5 MG TAB PO SCH ×3 (09:15→16:24)
[2022-07-15] MEDS: PANTOPRAZOLE 40 MG TABLET PO SCH (09:15)
[2022-07-15] MEDS: HEPARIN SODIUM,PORCINE/PF 5,000 UNIT/0.5 ML SYRINGE SQ SCH ×2 (09:15→16:22)
[2022-07-15] MEDS: THIAMINE 100 MG TAB PO SCH (09:16)
[2022-07-15] MEDS: MAGNESIUM OXIDE 400 MG TAB PO SCH ×3 (09:16→22:46)
[2022-07-15] MEDS: FOLIC ACID 1 MG TAB PO SCH (09:16)
[2022-07-15] MEDS: MULTIVITAMINS, THERA 1 EACH TAB PO SCH (09:16)
[2022-07-15] MEDS: TORSEMIDE 20 MG TAB PO SCH (09:17)
[2022-07-15] MEDS: SPIRONOLACTONE 25 MG TAB PO SCH (09:17)
[2022-07-15] MEDS ORDERED: MAGNESIUM SULFATE-D5W PMX 1 GM in DEXTROSE/WATER 1 100ML.BAG IVPB ONE (11:51)
[2022-07-15] MEDS ORDERED: HYDROmorphone 0.5 MG/0.5 ML SYRINGE IVP STA (16:16)
[2022-07-16] MEDS: HEPARIN SODIUM,PORCINE/PF 5,000 UNIT/0.5 ML SYRINGE SQ SCH ×2 (00:17→07:40)
--- NOTE | 2022-07-16 01:28 | P.PN ---
Subjective Progress Note Date: 07/14/22 This is a 71-year-old female who was recently brought to the emergency room with nausea and vomiting and generalized weakness and having decreased urine output and increase in abdominal distention. Patient does have past medical history of rheumatoid arthritis and daily alcohol use and CT of the abdomen showed a heterogenicity of the liver which appears new and could be related to hepatitis or cirrhosis with a moderate abdominal ascites noted and sigmoid diverticulosis. Multiple medical consultations including pulmonary, GI, nephrology following and patient was maintained in the ICU for quite some time on hypertonic solution. Patient continues on Lasix drip along with antibiotics. Patient con tinues to be extremely lethargic and will continue with lactulose 20 mg twice a day. Patient was started on antibiotics for UTI. Multiple electrolyte abnormalities as well and sodium is 127 today. Potassium is 3.5, current creatinine is 0.7 and total bili is 3.7. Recommend repeat labs. 07/05/2021 Patient is seen today in follow up and is currently sitting up in the chair and mentation is somewhat improved. Patient sodium continued to be low and nephrology following . Planning ecf and case management following. Patient is off lasix drip maintained on IV push Lasix with nephrology following. Recommend repeat labs in the a.m. Patient continues on ceftriaxone with urine cultures finalizing E. coli and will continue short course of oral antibiotics on discharge. Case management is following and working on accepting facilities with insurance authorization. Encouraged oral intake and continued physical therapy daily. Potassium again low at 3.0 and will replace per protocol and will add daily supplements. Recommend to replace as needed. Patient to be given a dose of samsca per nephrology. Recommend [place] catheter removal as well. 07/06/2022 Patient is seen and evaluated in follow-up today currently sitting up in the chair more awake and alert and appropriate to commands and questions. Patient continues with some confusion although much more appropriate today. Patient is maintained on IV antibiotics in the form of ceftriaxone and urine culture has finalized with E. coli with sensitivities and will continue for now. Patient is being followed closely by nephrology and maintained on IV push Lasix recommending another 24 hours and close monitoring of kidney functions along with electrolytes. Patient was given a dose of Samsca yesterday again today and current sodium mildly elevated up to 128 today. Potassium remains low at 3.2 and will replace per protocol and recommend daily supplementation of potassium. Patient is afebrile with no reports of nausea or vomiting noted. Recommend fluid restrictions as well. Recommend PT/OT therapy daily. Case management following as well as patient will likely need ECF for continued weakness. Patient and family are agreeable with this plan. 07/09/2022 Patient is seen and evaluated in follow-up this morning mentation improving and being followed by nephrology. Patient's sodium back down to 123 with a potassium at 3.8 mL was also found to be low at 1.7. Oral intake is fair to poor and not eating very well. Patient ammonia level within normal limits and will titrate the dose down to daily and monitor for at least 2-3 bowel movements. Patient also with some abdominal distention today and ultrasound of the abdomen was ordered for possible paracentesis. Patient did receive a previous paracentesis on this admission. Will await report. Patient continues with weakness and being followed by physical therapy daily encouraged increased activity as tolerated. Case management is following working on an accepting facility. Patient has received adequate amount of IV antibiotics for UTI E. coli and will discontinue ceftriaxone at this time. Recommend repeat labs and will continue to monitor the patient closely. 07/10/2022 Patient is seen this morning and more awake and alert today. Oral intake is fair and maintained on fluid restrictions. Patient is post paracentesis yesterday of about 4 L removed. Nephrology following and sodium is improved as well to 132 today post samsca. Patient was treated for UTI and abx were discontinued although resumed as her left foot is red and swollen. Will continue for now and monitor the foot. Possible cellulitis. Encouraged oral intake and increased activity as tolerated. Case management following and working on an accepting facility. Patient is afebrile and denies chest pain or shortness of breath. No reports of nausea or vomiting and tolerating diet. Continue fluid restrictions and is maintained on aldactone. Torsemide being added. 07/11/2022 Patient is seen in follow-up this morning more awake with nephrology and pulmonary following. Patient was resumed on IV ceftriaxone for left lower extremity cellulitis and will order foot x-ray. Patient continues to report discomfort of the left lower extremity with some erythema noted and there is joseph e signs of cellulitis with questionable hematoma at the site as well. Patient does not recall striking her hitting her foot although is somewhat confused at times. Patient is afebrile with no white count denies chest pain or shortness of breath. Patient's sodium is slightly improved at 130 today and is post paracentesis of approximately 4.3 L removed. Patient has been started on torsemide and is continued on Aldactone and will continue. Recommend continue with lactulose to titrate for 2-3 bowel movements daily. Patient per nursing staff has been refusing at times as she does not want to have continuous diarrhea multiple times throughout the day. Encourage the importance of taking medications as prescribed. Case management is also following working on [facility] facility that are accepting. Per nursing staff patient was reporting some chest tightness with associated anxiety and will order troponin along with EKG and chest x-ray. Low-dose Xanax was ordered as well. 07/12/2022 Patient is seen today with no acute overnight issues noted. Patient reports to some anxiety and asking for something. Patient with some abdominal distention although soft and currently not reporting any pain. Patient is continued on ceftriaxone and obtained x-ray of the left foot showing to correlate for cellulitis, edema, abscess with no fractures or dislocations noted and no. No suggestion of osteomyelitis evident. Patient CBC within normal limits and sodium is 131 today although magnesium again is 1.4 and will increase magnesium oxide and also replace per protocol. Follow-up with repeat labs. Patient is anxious and wanting to work with physical therapy and continues with weakness. Continue with fluid restrictions and current medication regimen. Infectious disease has been consulted and pending for input and recommendations of the left foot. Attempted Pranay wraps to help with swelling although patient did not tolerate well and took the Pranay wrap soft. 07/13/2022 Patient is seen and evaluated in follow-up today. Patient reports to feeling abdominal fullness and will obtain abdominal ultrasound with possible IR consult. Infectious disease has been consulted recommend continuing with antibiotics and Pranay wrapping the left lower extremity. Some erythema and swelling is improved and patient reports less pain. Patient is having generalized pain and did well with Ultram will add as needed and discuss with nursing staff about closely monitoring mentation as patient was initially altered. Patient also not eating much as she reports she does not like the dysphagia diet and will reconsult speech to evaluate as patient is much more awake and alert. She continues with weakness and recommend physical therapy daily. Patient did not tolerate the Pranay wrap very well and discussed with the patient again about wearing the Pranay wrap throughout the day and elevating the extremity and taking the Pranay wrap off at night. Patient is afebrile denies chest pain or shortness of breath. Patient denies nausea or vomiting and tolerating diet. 07/14/2022 Patient is currently lying in bed. Awake alert and oriented. Able to walk to the bathroom. No nausea vomiting abdominal pain or diarrhea. Laboratory showed sodium 130 potassium 4.1 chloride 92 bicarb is 28 BUN 10 and creatinine 0.52 and magnesium 1.5. Review of systems: Constitutional: No reports of fatigue, fever, or chills Cardiovascular: No reports of chest pain or palpitations Respiratory: No reports of shortness of breath or cough GI: No reports of nausea, vomiting, reports no bowel movement today, poor oral intake although feels is improving slightly although reports she is not liking the dysphagia diet due to its texture : No reports of dysuria or retention Neurovascular: reports of generalized weakness , reports some left foot pain and redness All medications have been reviewed Active Medications Folic Acid (Folic Acid 1 Mg Tab) 1 mg PO DAILY [facility] Last Admin: 07/13/22 08:02 Dose: 1 mg Heparin Sodium (Porcine) (Heparin Sodium,Porcine/Pf 5,000 Unit/0.5 Ml Syringe) 5,000 unit SQ Q8HR [facility] Last Admin: 07/13/22 08:02 Dose: 5,000 unit Ceftriaxone Sodium 1 gm/ (Sodium Chloride) 50 mls @ 100 mls/hr IVPB Q24HR [facility]; Protocol Last Admin: 07/13/22 08:02 Dose: 100 mls/hr Lactulose (Lactulose 20 Gm/30 Ml Cup) 30 gm PO DAILY PRN PRN Reason: Constipation Lorazepam (Lorazepam 1 Mg/0.5 Ml Vial) 1 mg IV Q1HR PRN PRN Reason: CIWA 10 to 15 Last Admin: 06/30/22 23:41 Dose: 1 mg Lorazepam (Lorazepam 1 Mg/0.5 Ml Vial) 1 mg IV Q2HR PRN PRN Reason: CIWA 8 or 9 Last Admin: 06/30/22 05:16 Dose: 1 mg Magnesium Oxide (Magnesium Oxide 400 Mg Tab) 400 mg PO TID [facility] Last Admin: 07/13/22 08:01 Dose: 400 mg Midodrine (Midodrine 5 Mg Tab) 10 mg PO AC-TID [facility] Last Admin: 07/13/22 13:35 Dose: Not Given Miscellaneous Information (Magnesium Replacement Protocol 1 Each Misc) 1 each MISCELLANE DAILY PRN; Protocol PRN Reason: Per Protocol Miscellaneous Information (Potassium Replacement Protocol 1 Each Misc) 1 each MISCELLANE DAILY PRN; Protocol PRN Reason: Per Protocol Miscellaneous Information (Magnesium Replacement Protocol 1 Each Misc) 1 each MISCELLANE DAILY PRN; Protocol PRN Reason: Per Protocol Multivitamins (Multivitamins, Thera 1 Each Tab) 1 each PO DAILY [facility] Last Admin: 07/13/22 08:01 Dose: 1 each Naloxone HCl (Naloxone 0.4 Mg/Ml 1 Ml Vial) 0.2 mg IV Q2M PRN PRN Reason: Opioid Reversal Ondansetron HCl (Ondansetron 4 Mg/2 Ml Vial) 4 mg IVP Q6HR PRN PRN Reason: Nausea And Vomiting Last Admin: 07/08/22 08:24 Dose: 4 mg Pantoprazole Sodium (Pantoprazole 40 Mg Tablet) 40 mg PO AC-BRKFST [facility] Last Admin: 07/13/22 08:01 Dose: 40 mg Spironolactone (Spironolactone 25 Mg Tab) 25 mg PO DAILY [facility] Last Admin: 07/13/22 08:02 Dose: 25 mg Thiamine HCl (Thiamine 100 Mg Tab) 100 mg PO DAILY [facility] Last Admin: 07/13/22 08:02 Dose: 100 mg Torsemide (Torsemide 20 Mg Tab) 20 mg PO DAILY [facility] Last Admin: 07/13/22 08:01 Dose: 20 mg Tramadol HCl (Tramadol 50 Mg Tab) 50 mg PO TID PRN PRN Reason: Pain PHYSICAL EXAMINATION: GENERAL: The patient is more awake and sitting up in bed today, continues to be more alert each day, Well developed, well nourished. HEENT: Pupils are round and equally reacting to light. EOMI. scleral icterus. No conjunctival pallor. Normocephalic, atraumatic. No pharyngeal erythema. No t hyromegaly. CARDIOVASCULAR: S1 and S2 muffled PULMONARY: diminished breath sounds bilaterally with no wheezing or rhonchi noted. ABDOMEN: soft. Nontender on exam. obese. non-distended, normoactive bowel sounds. No palpable organomegaly. MUSCULOSKELETAL: No joint swelling or deformity. EXTREMITIES: No cyanosis, clubbing, or pedal edema. NEUROLOGICAL: Gross neurological examination did not reveal any focal deficits. Diffuse weakness SKIN: No rashes. Left dorsal foot redness and swelling noted with intact skin with possible in appearance of a hematoma and possible other fluid collection bubble is intact noted on the dorsum Assessment: Hyponatremia likely hypoosmolar with decreased oral intake. Intractable nausea and vomiting and decreased oral intake, nausea and vomiting has improved Acute alcohol withdrawal symptoms, currently no signs of withdrawal Acute alcoholic hepatitis Ascites post paracentesis x2 this admission. 07-09-22 with 4 liters removed E. coli urinary tract infection, treated possible left foot cellulitis, possible hematoma as noted on CT of the foot Liver cirrhosis likely alcohol related Hyperbilirubinemia Alcohol abuse Hypomagnesemia 0.9 Anxiety Macrocytosis MCV 107.0 due to alcohol abuse GI prophylaxis DVT prophylaxis Full code Plan: Recommend to continue with current medications and management with nephrology following closely. Pulmonary following as well. Patient restarted on antibiotics for possible left foot cellulitis as it is erythematous, warm, swollen, and painful to the touch. X-ray of the foot shows to correlate for cellulitis, edema, abscess with no periostitis to suggest osteomyelitis with no fractures or dislocations noted. Erythema slightly improved from yesterday's exam and will continue ceftriaxone. Infectious disease following and underwent left foot CT which was suggesting possible hematoma. Patient is maintained on torsemide and Aldactone. Attempted Pranay wrap to that lower extremity and encourage the patient to elevate while at rest. Patient did not tolerate the Pranay wrap well and took it off. Discussed with patient and nurse about wearing the pranay wrap during the day but off at night. Patient agreed. Continue with lactulose although will titrate the dose down to daily as patient has been having multiple bowel movements and ammonia levels within normal limits. Recommend lactulose daily not as needed. AM labs pending. Consult to speech to see if we can advance diet per patient request as she feels the poor oral intake is due to her not liking the texture of the food. Strongly encouraged aspiration precautions with head of bed elevated and supervision with meals. Patient maintained on fluid restrictions and will continue. Case management is following working on accepting facility for ECF for continued PT/OT therapy. Recommend repeat am labs. Abdominal ultrasound shows ascites and IR consulted and unable to perform until Saturday due to no available space in their schedule. Due to multiple complex medical issues, prognosis is guarded. Objective - Vital Signs Vital signs: Vital Signs Temp 97.9 F 07/14/22 07:56 Pulse 98 07/14/22 11:02 Resp 16 07/14/22 07:56 BP 108/62 07/14/22 11:02 Pulse Ox 93 L 07/14/22 07:56 FiO2 Intake & Output 07/13/22 07/14/22 07/14/22 18:59 06:59 18:59 Intake Total 237 Output Total 700 Balance -700 237 Weight 80 kg Intake: Oral 237 Output: Urine 700 Other: Voiding Method Diaper Diaper Diaper Incontinent Incontinent Incontinent External Catheter External Catheter External Catheter # Voids 1 - Labs CBC & Chem 7: 07/13/22 06:53 07/14/22 11:48 Labs: Abnormal Lab Results - Last 24 Hours (Table) 07/14/22 Range/Units 11:48 Sodium 130 L (137-145) mmol/L Chloride 92 L (98-107) mmol/L Glucose 111 H (74-99) mg/dL Calcium 8.0 L (8.4-10.2) mg/dL Magnesium 1.5 L (1.6-2.3) mg/dL Microbiology - Last 24 Hours (Table) 07/13/22 06:53 Blood Culture - Preliminary Blood No Growth after 24 hours
--- NOTE | 2022-07-16 01:30 | P.PN ---
Subjective Progress Note Date: 07/15/22 This is a 71-year-old female who was recently brought to the emergency room with nausea and vomiting and generalized weakness and having decreased urine output and increase in abdominal distention. Patient does have past medical history of rheumatoid arthritis and daily alcohol use and CT of the abdomen showed a heterogenicity of the liver which appears new and could be related to hepatitis or cirrhosis with a moderate abdominal ascites noted and sigmoid diverticulosis. Multiple medical consultations including pulmonary, GI, nephrology following and patient was maintained in the ICU for quite some time on hypertonic solution. Patient continues on Lasix drip along with antibiotics. Patient con tinues to be extremely lethargic and will continue with lactulose 20 mg twice a day. Patient was started on antibiotics for UTI. Multiple electrolyte abnormalities as well and sodium is 127 today. Potassium is 3.5, current creatinine is 0.7 and total bili is 3.7. Recommend repeat labs. 07/05/2021 Patient is seen today in follow up and is currently sitting up in the chair and mentation is somewhat improved. Patient sodium continued to be low and nephrology following . Planning ecf and case management following. Patient is off lasix drip maintained on IV push Lasix with nephrology following. Recommend repeat labs in the a.m. Patient continues on ceftriaxone with urine cultures finalizing E. coli and will continue short course of oral antibiotics on discharge. Case management is following and working on accepting facilities with insurance authorization. Encouraged oral intake and continued physical therapy daily. Potassium again low at 3.0 and will replace per protocol and will add daily supplements. Recommend to replace as needed. Patient to be given a dose of samsca per nephrology. Recommend [place] catheter removal as well. 07/06/2022 Patient is seen and evaluated in follow-up today currently sitting up in the chair more awake and alert and appropriate to commands and questions. Patient continues with some confusion although much more appropriate today. Patient is maintained on IV antibiotics in the form of ceftriaxone and urine culture has finalized with E. coli with sensitivities and will continue for now. Patient is being followed closely by nephrology and maintained on IV push Lasix recommending another 24 hours and close monitoring of kidney functions along with electrolytes. Patient was given a dose of Samsca yesterday again today and current sodium mildly elevated up to 128 today. Potassium remains low at 3.2 and will replace per protocol and recommend daily supplementation of potassium. Patient is afebrile with no reports of nausea or vomiting noted. Recommend fluid restrictions as well. Recommend PT/OT therapy daily. Case management following as well as patient will likely need ECF for continued weakness. Patient and family are agreeable with this plan. 07/09/2022 Patient is seen and evaluated in follow-up this morning mentation improving and being followed by nephrology. Patient's sodium back down to 123 with a potassium at 3.8 mL was also found to be low at 1.7. Oral intake is fair to poor and not eating very well. Patient ammonia level within normal limits and will titrate the dose down to daily and monitor for at least 2-3 bowel movements. Patient also with some abdominal distention today and ultrasound of the abdomen was ordered for possible paracentesis. Patient did receive a previous paracentesis on this admission. Will await report. Patient continues with weakness and being followed by physical therapy daily encouraged increased activity as tolerated. Case management is following working on an accepting facility. Patient has received adequate amount of IV antibiotics for UTI E. coli and will discontinue ceftriaxone at this time. Recommend repeat labs and will continue to monitor the patient closely. 07/10/2022 Patient is seen this morning and more awake and alert today. Oral intake is fair and maintained on fluid restrictions. Patient is post paracentesis yesterday of about 4 L removed. Nephrology following and sodium is improved as well to 132 today post samsca. Patient was treated for UTI and abx were discontinued although resumed as her left foot is red and swollen. Will continue for now and monitor the foot. Possible cellulitis. Encouraged oral intake and increased activity as tolerated. Case management following and working on an accepting facility. Patient is afebrile and denies chest pain or shortness of breath. No reports of nausea or vomiting and tolerating diet. Continue fluid restrictions and is maintained on aldactone. Torsemide being added. 07/11/2022 Patient is seen in follow-up this morning more awake with nephrology and pulmonary following. Patient was resumed on IV ceftriaxone for left lower extremity cellulitis and will order foot x-ray. Patient continues to report discomfort of the left lower extremity with some erythema noted and there is joseph e signs of cellulitis with questionable hematoma at the site as well. Patient does not recall striking her hitting her foot although is somewhat confused at times. Patient is afebrile with no white count denies chest pain or shortness of breath. Patient's sodium is slightly improved at 130 today and is post paracentesis of approximately 4.3 L removed. Patient has been started on torsemide and is continued on Aldactone and will continue. Recommend continue with lactulose to titrate for 2-3 bowel movements daily. Patient per nursing staff has been refusing at times as she does not want to have continuous diarrhea multiple times throughout the day. Encourage the importance of taking medications as prescribed. Case management is also following [facility]. Per nursing staff patient was reporting some chest tightness with associated anxiety and will order troponin along with EKG and chest x-ray. Low-dose Xanax was ordered as well. 07/12/2022 Patient is seen today with no acute overnight issues noted. Patient reports to some anxiety and asking for something. Patient with some abdominal distention although soft and currently not reporting any pain. Patient is continued on ceftriaxone and obtained x-ray of the left foot showing to correlate for cellulitis, edema, abscess with no fractures or dislocations noted and no. No suggestion of osteomyelitis evident. Patient CBC within normal limits and sodium is 131 today although magnesium again is 1.4 and will increase magnesium oxide and also replace per protocol. Follow-up with repeat labs. Patient is anxious and wanting to work with physical therapy and continues with weakness. Continue with fluid restrictions and current medication regimen. Infectious disease has been consulted and pending for input and recommendations of the left foot. Attempted Pranay wraps to help with swelling although patient did not tolerate well and took the Pranay wrap soft. 07/13/2022 Patient is seen and evaluated in follow-up today. Patient reports to feeling abdominal fullness and will obtain abdominal ultrasound with possible IR consult. Infectious disease has been consulted recommend continuing with antibiotics and Pranay wrapping the left lower extremity. Some erythema and swelling is improved and patient reports less pain. Patient is having generalized pain and did well with Ultram will add as needed and discuss with nursing staff about closely monitoring mentation as patient was initially altered. Patient also not eating much as she reports she does not like the dysphagia diet and will reconsult speech to evaluate as patient is much more awake and alert. She continues with weakness and recommend physical therapy daily. Patient did not tolerate the Pranay wrap very well and discussed with the patient again about wearing the Pranay wrap throughout the day and elevating the extremity and taking the Pranay wrap off at night. Patient is afebrile denies chest pain or shortness of breath. Patient denies nausea or vomiting and tolerating diet. 07/14/2022 Patient is currently lying in bed. Awake alert and oriented. Able to walk to the bathroom. No nausea vomiting abdominal pain or diarrhea. Laboratory showed sodium 130 potassium 4.1 chloride 92 bicarb is 28 BUN 10 and creatinine 0.52 and magnesium 1.5. 07/15/2022 Patient is currently lying in the bed. Awake alert and oriented. Mentation is much improved. Patient is on room air. Right foot pain is also improved. No chest pain. No abdominal pain. No nausea. No diarrhea. No cough or sputum production. Patient is one-point bilateral fluid restriction. No headache or dizziness or lightheadedness. Patient is tolerating oral diet. PT OT will be consulted. Otherwise patient is being current antibiotics ceftriaxone. ID and pulmonary nephrology is on board. Review of systems: Constitutional: No reports of fatigue, fever, or chills Cardiovascular: No reports of chest pain or palpitations Respiratory: No reports of shortness of breath or cough GI: No reports of nausea, vomiting, reports no bowel movement today, poor oral intake although feels is improving slightly although reports she is not liking the dysphagia diet due to its texture : No reports of dysuria or retention Neurovascular: reports of generalized weakness , reports some left foot pain and redness All medications have been reviewed Active Medications Folic Acid (Folic Acid 1 Mg Tab) 1 mg PO DAILY [facility] Last Admin: 07/13/22 08:02 Dose: 1 mg Heparin Sodium (Porcine) (Heparin Sodium,Porcine/Pf 5,000 Unit/0.5 Ml Syringe) 5,000 unit SQ Q8HR [facility] Last Admin: 07/13/22 08:02 Dose: 5,000 unit Ceftriaxone Sodium 1 gm/ (Sodium Chloride) 50 mls @ 100 mls/hr IVPB Q24HR [facility]; Protocol Last Admin: 07/13/22 08:02 Dose: 100 mls/hr Lactulose (Lactulose 20 Gm/30 Ml Cup) 30 gm PO DAILY PRN PRN Reason: Constipation Lorazepam (Lorazepam 1 Mg/0.5 Ml Vial) 1 mg IV Q1HR PRN PRN Reason: CIWA 10 to 15 Last Admin: 06/30/22 23:41 Dose: 1 mg Lorazepam (Lorazepam 1 Mg/0.5 Ml Vial) 1 mg IV Q2HR PRN PRN Reason: CIWA 8 or 9 Last Admin: 06/30/22 05:16 Dose: 1 mg Magnesium Oxide (Magnesium Oxide 400 Mg Tab) 400 mg PO TID [facility] Last Admin: 07/13/22 08:01 Dose: 400 mg Midodrine (Midodrine 5 Mg Tab) 10 mg PO AC-TID [facility] Last Admin: 07/13/22 13:35 Dose: Not Given Miscellaneous Information (Magnesium Replacement Protocol 1 Each Misc) 1 each MISCELLANE DAILY PRN; Protocol PRN Reason: Per Protocol Miscellaneous Information (Potassium Replacement Protocol 1 Each Misc) 1 each MISCELLANE DAILY PRN; Protocol PRN Reason: Per Protocol Miscellaneous Information (Magnesium Replacement Protocol 1 Each Misc) 1 each MISCELLANE DAILY PRN; Protocol PRN Reason: Per Protocol Multivitamins (Multivitamins, Thera 1 Each Tab) 1 each PO DAILY [facility] Last Admin: 07/13/22 08:01 Dose: 1 each Naloxone HCl (Naloxone 0.4 Mg/Ml 1 Ml Vial) 0.2 mg IV Q2M PRN PRN Reason: Opioid Reversal Ondansetron HCl (Ondansetron 4 Mg/2 Ml Vial) 4 mg IVP Q6HR PRN PRN Reason: Nausea And Vomiting Last Admin: 07/08/22 08:24 Dose: 4 mg Pantoprazole Sodium (Pantoprazole 40 Mg Tablet) 40 mg PO AC-BRKFST [facility] Last Admin: 07/13/22 08:01 Dose: 40 mg Spironolactone (Spironolactone 25 Mg Tab) 25 mg PO DAILY [facility] Last Admin: 07/13/22 08:02 Dose: 25 mg Thiamine HCl (Thiamine 100 Mg Tab) 100 mg PO DAILY [facility] Last Admin: 07/13/22 08:02 Dose: 100 mg Torsemide (Torsemide 20 Mg Tab) 20 mg PO DAILY [facility] Last Admin: 07/13/22 08:01 Dose: 20 mg Tramadol HCl (Tramadol 50 Mg Tab) 50 mg PO TID PRN PRN Reason: Pain PHYSICAL EXAMINATION: GENERAL: The patient is more awake and sitting up in bed today, continues to be more alert each day, Well developed, well nourished. HEENT: Pupils are round and equally reacting to light. EOMI. scleral icterus. No conjunctival pallor. Normocephalic, atraumatic. No pharyngeal erythema. No thyromegaly. CARDIOVASCULAR: S1 and S2 muffled PULMONARY: diminished breath sounds bilaterally with no wheezing or rhonchi noted. ABDOMEN: soft. Nontender on exam. obese. non-distended, normoactive bowel sounds. No palpable organomegaly. MUSCULOSKELETAL: No joint swelling or deformity. EXTREMITIES: No cyanosis, clubbing, or pedal edema. NEUROLOGICAL: Gross neurological examination did not reveal any focal deficits. Diffuse weakness SKIN: No rashes. Left dorsal foot redness and swelling noted with intact skin with possible in appearance of a hematoma and possible other fluid collection bubble is intact noted on the dorsum Assessment: Hyponatremia likely hypoosmolar with decreased oral intake. Intractable nausea and vomiting and decreased oral intake, nausea and vomiting has improved Acute alcohol withdrawal symptoms, currently no signs of withdrawal Acute alcoholic hepatitis Ascites post paracentesis x2 this admission. 07-09-22 with 4 liters removed E. coli urinary tract infection, treated possible left foot cellulitis, possible hematoma as noted on CT of the foot Liver cirrhosis likely alcohol related Hyperbilirubinemia Alcohol abuse Hypomagnesemia 0.9 Anxiety Macrocytosis MCV 107.0 due to alcohol abuse GI prophylaxis DVT prophylaxis Full code Plan: Recommend to continue with current medications and management with nephrology following closely. Pulmonary following as well. Patient restarted on antibiotics for possible left foot cellulitis as it is erythematous, warm, swollen, and painful to the touch. X-ray of the foot shows to correlate for cellulitis, edema, abscess with no periostitis to suggest osteomyelitis with no fractures or dislocations noted. Erythema slightly improved from yesterday's exam and will continue ceftriaxone. Infectious disease following and underwent left foot CT which was suggesting possible hematoma. Patient is maintained on torsemide and Aldactone. Attempted Pranay wrap to that lower extremity and enc ourage the patient to elevate while at rest. Patient did not tolerate the Pranay wrap well and took it off. Discussed with patient and nurse about wearing the pranay wrap during the day but off at night. Patient agreed. Continue with lactulose although will titrate the dose down to daily as patient has been having multiple bowel movements and ammonia levels within normal limits. Recommend lactulose daily not as needed. AM labs pending. Consult to speech to see if we can advance diet per patient request as she feels the poor oral intake is due to her not liking the texture of the food. Strongly encouraged aspiration precautions with head of bed elevated and supervision with meals. Patient main tained on fluid restrictions and will continue. Case management is following working on accepting facility for ECF for continued PT/OT therapy. Recommend repeat am labs. Abdominal ultrasound shows ascites and IR consulted and unable to perform until Saturday due to no available space in their schedule. Due to multiple complex medical issues, prognosis is guarded. Objective - Vital Signs Vital signs: Vital Signs Temp 97.9 F 07/15/22 14:48 Pulse 93 07/15/22 14:48 Resp 18 07/15/22 14:48 BP 138/79 07/15/22 14:48 Pulse Ox 95 07/15/22 14:48 FiO2 Intake & Output 07/14/22 07/15/22 07/15/22 18:59 06:59 18:59 Intake Total 210 Output Total 1000 Balance -790 Intake: Oral 210 Output: Urine 1000 Other: Voiding Method Diaper External Catheter External Catheter Incontinent External Catheter - Labs CBC & Chem 7: 07/13/22 06:53 07/14/22 11:48 Labs: Microbiology - Last 24 Hours (Table) 07/13/22 06:53 Blood Culture - Preliminary Blood No Growth after 48 hours
[2022-07-16] MEDS: traMADol 50 MG TAB PO PRN ×2 (04:12→12:12)
[2022-07-16] MEDS: MIDODRINE 5 MG TAB PO SCH ×2 (07:38→11:21)
[2022-07-16] MEDS: PANTOPRAZOLE 40 MG TABLET PO SCH (07:39)
[2022-07-16] MEDS: THIAMINE 100 MG TAB PO SCH (07:39)
[2022-07-16] MEDS: MAGNESIUM OXIDE 400 MG TAB PO SCH (07:39)
[2022-07-16] MEDS: SPIRONOLACTONE 25 MG TAB PO SCH (07:39)
[2022-07-16] MEDS: FOLIC ACID 1 MG TAB PO SCH (07:40)
[2022-07-16] MEDS: TORSEMIDE 20 MG TAB PO SCH (07:40)
[2022-07-16] MEDS: MULTIVITAMINS, THERA 1 EACH TAB PO SCH (07:40)
[2022-07-16 08:33] LABS: INR 1.5 (<1.2); Prothrombin Time 15.5 sec (9.0-12.0)
[2022-07-16 11:27] VITALS: BP 152/80; PULSE 92; RESP 18; TEMP 98.3
[2022-07-16 11:41] LABS: Basophils # (A) 0.04 X 10*3/uL (0.00-0.10); Basophils % (A) 0.6 %; Eosinophils # (A) 0.08 X 10*3/uL (0.04-0.35); Eosinophils % (A) 1.2 %; HCT 31.9 % (37.2-46.3); HGB 10.9 g/dL (12.0-15.0); Immature Grans, Automated 0.3 %; Lymphocytes # (A) 1.39 X 10*3/uL (0.90-5.00); Lymphocytes % (A) 20.9 %; MCH 38.4 pg (27.0-32.0); MCHC 34.2 g/dL (32.0-37.0); MCV 112.3 fL (80.0-97.0); Mean Platelet Volume 9.7 fL (9.5-12.2); Monocytes # (A) 0.74 X 10*3/uL (0.20-1.00); Monocytes % (A) 11.1 %; NRBC Per 100 WBC 0 /100 WBCS (0.0-0.0); Neutrophils # (A) 4.39 X 10*3/uL (1.80-7.70); Neutrophils % (A) 65.9 %; Platelet Count 180 X 10*3/uL (140-440); RBC 2.84 X 10*6/uL (4.10-5.20); RDW 16.4 % (11.5-14.5); WBC 6.66 X 10*3/uL (4.50-10.00)
[2022-07-16 11:50] LABS: African American GFR (CKD) 104.8 (60.0-200.0); Anion Gap 7.3 mmol/L (10.00-18.00); Blood Urea Nitrogen 7.8 mg/dL (9.0-27.0); Calcium 8.5 mg/dL (8.7-10.3); Carbon Dioxide 28.7 mmol/L (20.0-27.5); Non-African American GFR(CKD) 90.4 (60.0-200.0); Potassium 3.7 mmol/L (3.5-5.5)
--- NOTE | 2022-07-16 12:40 | US ---
EXAMINATION TYPE: US paracentesis abd w/image DATE OF EXAM: 07/16/2022 COMPARISON: NONE HISTORY: Ascites. PROCEDURE: Maximal barrier technique was utilized. The skin overlying a suitable pocket of fluid was localized with ultrasound and the overlying skin was prepped and draped. Ultrasound was utilized with sterile technique. Lidocaine was used for local anesthesia and a skin delmar made with a scalpel. Catheter was advanced under direct ultrasound guidance into a suitable pocket of fluid and approximately 3 liters of ascites fluid were removed. Catheter was withdrawn and hemostasis achieved. There is no immediat e complication; the patient is discharged in stable condition. IMPRESSION: STATUS POST ULTRASOUND GUIDED PARACENTESIS FOR PALLIATION OF ASCITES. THIS PROCEDURE WA S PERFORMED BY THE UNDERSIGNED.
--- NOTE | 2022-07-16 15:14 | P.DS ---
Providers Date of admission: 06/26/22 23:50 Expected date of discharge: 07/16/22 Attending physician: Corona Jacinto Consults: 06/26/22 22:39 Consult Physician Stat Consulting Provider: Buck Velasquez Consult Reason/Comments: Hyponatremia Do you want consulting provider notified?: Already Contacted Consult Physician Stat Consulting Provider: Tez Beckman Consult Reason/Comments: Hyponatremia, ICU admission Do you want consulting provider notified?: Already Contacted 07/09/22 13:36 Consult Physician Routine Consulting Provider: Kvng Aguirre Consult Reason/Comments: Paracentesis Do you want consulting provider notified?: Yes 07/12/22 11:43 Consult Physician Urgent Consulting Provider: Mike Bishop Consult Reason/Comments: left foot cellulitis Do you want consulting provider notified?: Yes Primary care physician: Pearl Stoner Hospital Course: Final diagnosis Hyponatremia likely hypoosmolar with decreased oral intake. Intractable nausea and vomiting and decreased oral intake, nausea and vomiting has improved Acute alcohol withdrawal symptoms, currently no signs of withdrawal Acute alcoholic hepatitis Ascites post paracentesis x3 this admission. 07-16-22 with 3 liters removed E. coli urinary tract infection, treated possible left foot cellulitis, possible hematoma as noted on CT of the foot Liver cirrhosis likely alcohol related Hyperbilirubinemia Alcohol abuse Hypomagnesemia 0.9, improved Anxiety Macrocytosis MCV 107.0 due to alcohol abuse GI prophylaxis DVT prophylaxis Full code Discharge disposition Patient is being discharged in a stable condition with guarded prognosis to ECF. Patient will follow-up with Dr. Stoner in the outpatient setting upon discharge. Patient is to follow-up with GI and also nephrology. Patient is to continue on Keflex 500 mg 3 times a day for the next 10 days to complete a course. Patient needs possible palliative paracentesis arranged outpatient. Total time taken is greater than 35 minutes. Hospital course This is a 71-year-old female who was recently admitted with nausea and vomiting generalized weakness and along with abdominal distention and was being closely monitored. Patient with concerns for liver cirrhosis with extensive abdominal ascites and has had multiple medical consultations following. Patient has required 3 separate paracentesis during this admission and needs GI follow-up t his week. Patient most likely will need palliative paracentesis in the outpatient setting. Patient is continued on Aldactone and also strongly recommend nephrology follow-up in the next 1 week. Patient was treated adequately for E. coli UTI with sensitivities and later developed a left foot hematoma questionable cellulitis with some redness and swelling noted. Patient was started on antibiotics with improvement and encouraged to continue on Keflex 500 mg 3 times a day for the next 10 days to complete the course. Also encourage the patient to continue with Pranay wrapping to the lower extremity and elevating while at rest although patient continues to remove the Pranay wrapping. Recommend low sodium fluid restriction diet as mentioned previously with repeat labs in the next few days. Patient with continued weakness and will be going to ECF. Currently no reports of chest pain, shortness of breath, or palpitations. Patient is afebrile. No reports of nausea or vomiting and patient is tolerating diet. Patient will be discharged today . Guarded prognosis. Physical exam: Gen: This is a 71-year-old female awake, alert and oriented 2-3, well- developed, well-nourished. HEENT: Head is atraumatic, normocephalic. Pupils equal, round. Sclerae is anicteric. NECK: Supple. No JVD. No lymphadenopathy. No thyromegaly. LUNGS: Diminished breath sounds bilaterally with No wheezes or rhonchi. No intercostal retractions. HEART: S1, S2 muffled ABDOMEN: Soft. Distended. Bowel sounds are present. No masses. No tenderness. EXTREMITIES: No pedal edema. No calf tenderness. NEUROLOGICAL: Patient is awake, alert and oriented x3. Cranial nerves 2 through 12 are grossly intact. Diffusely weak Please refer to medication reconciliation sheet for a list of medications. The impression and plan of care has been dictated by Bee Pichardo, Nurse Practitioner as directed. Dr. Orville MD I have performed a history and examination and MDM of this patient, discussed the same with the dictator, and agree with the dictator's assessment and plan as written ,documented as a scribe. Based on total visit time, I have performed more than 50% of the visit. Patient Condition at Discharge: Fair Plan - Discharge Summary New Discharge Prescriptions: New Lactulose [Cephulac] 30 gm PO DAILY PRN ml PRN Reason: Constipation Torsemide [Demadex] 20 mg PO DAILY tab Heparin Sodium,Porcine [Heparin Sodium] 5,000 unit SQ Q12HR 30 Days #60 each Magnesium Oxide [Mag-Ox] 400 mg PO TID tab Multivitamins, Thera [Multivitamin (formulary)] 1 each PO DAILY tab Midodrine [ProAmatine] 10 mg PO AC-TID tab Pantoprazole [Protonix] 40 mg PO AC-BRKFST tab traMADol HCl [Ultram] 50 mg PO TID PRN #6 tab PRN Reason: Pain Thiamine [Vitamin B-1] 100 mg PO DAILY tab Spironolactone [Aldactone] 25 mg PO DAILY tab Folic Acid 1 mg PO DAILY tab Cephalexin [Keflex] 500 mg PO Q8HR 10 Days #30 cap Continue [place]-3 Fatty Acids/Fish Oil [Fish Oil 1,000 mg Softgel] 1 cap PO BID Albuterol Sulfate [Proair Hfa] 1 - 2 puff INHALATION RT-Q6H PRN PRN Reason: Shortness Of Breath Metoprolol Tartrate 25 mg PO DAILY Metoprolol Tartrate [Lopressor] 25 mg PO HS PRN PRN Reason: HIGH BLOOD PRESSURE Discontinued Milk Thistle 150 mg PO DAILY lisinopriL 20 mg PO DAILY Omeprazole 20 mg PO DAILY Discharge Medication List Albuterol Sulfate [Proair Hfa] 1 - 2 puff INHALATION RT-Q6H PRN 06/10/19 [History] Metoprolol Tartrate 25 mg PO DAILY 06/10/19 [History] [place]-3 Fatty Acids/Fish Oil [Fish Oil 1,000 mg Softgel] 1 cap PO BID 06/10/19 [History] Metoprolol Tartrate [Lopressor] 25 mg PO HS PRN 06/26/22 [History] Cephalexin [Keflex] 500 mg PO Q8HR 10 Days #30 cap 07/16/22 [Rx] Folic Acid 1 mg PO DAILY tab 07/16/22 [Rx] Heparin Sodium,Porcine [Heparin Sodium] 5,000 unit SQ Q12HR 30 Days #60 each 07/16/22 [Rx] Lactulose [Cephulac] 30 gm PO DAILY PRN ml 07/16/22 [Rx] Magnesium Oxide [Mag-Ox] 400 mg PO TID tab 07/16/22 [Rx] Midodrine [ProAmatine] 10 mg PO AC-TID tab 07/16/22 [Rx] Multivitamins, Thera [Multivitamin (formulary)] 1 each PO DAILY tab 07/16/22 [Rx] Pantoprazole [Protonix] 40 mg PO AC-BRKFST tab 07/16/22 [Rx] Spironolactone [Aldactone] 25 mg PO DAILY tab 07/16/22 [Rx] Thiamine [Vitamin B-1] 100 mg PO DAILY tab 07/16/22 [Rx] Torsemide [Demadex] 20 mg PO DAILY tab 07/16/22 [Rx] traMADol HCl [Ultram] 50 mg PO TID PRN #6 tab 07/16/22 [Rx] Follow up Appointment(s)/Referral(s): Pearl Stoner MD [Primary Care Provider] - 1-2 days Margie Connolly MD [STAFF PHYSICIAN] - 1 Week Juani Tejada MD [STAFF PHYSICIAN] - 1 Week Ambulatory/Diagnostic Orders: Complete Blood Count w/diff [LAB.AMB] Time Frame: 3 Days, Location: None Selected Activity/Diet/Wound Care/Special Instructions: Patient is going to ECF Activity as tolerated Continue low sodium 2000 mg diet with continue fluid restrictions of 1000 mL per day Follow-up with nephrology this week Follow-up with GI this week Patient has been receiving multiple paracentesis during hospitalization and may need palliative paracentesis outpatient strongly encouraged GI follow-up to discuss this in one week Continue to Pranay wrap the left lower extremity and elevate while at rest and may remove Pranay wrapping at night Discharge Disposition: TRANSFER TO SNF/ECF
--- NOTE | 2022-07-18 15:48 | CDI ---
Documentation Clarification Form Date: 07/18/2022 02:43:28 PM From: Ritika Emery RN CCDS Admit Date: 06/26/2022 11:50:00 PM Patient Name: Alexsandra Manrique Visit Number: [id number] Discharge Date: 07/16/2022 04:10:00 PM ATTENTION: The Clinical Documentation Specialists (CDI) and [facility] Coding Staff appreciate your assistance in clarifying documentation. Please respond to the clarification below the line at the bottom and electronically sign. The CDI & [facility] Coding staff will review the response and follow-up if needed. Please note: Queries are made part of the Legal Health Record. If you have any questions, please contact the author of this message via ITS. Dr. Ru Montes De Oca There is documentation of I started this patient on IV Rocephin yesterday due to concerns of SBP, Delimber Operator notes, 07/10 07/14. Additional clarification is requested. History/Risk Factors: 71-year-old female presented to the ED with nausea, vomiting, generalized weakness and abdominal distention with pain. Medical history: Daily alcohol use, HTN and Pancreatitis. 06/27, H&P. Clinical Indicators: 06/28, Peritoneal fluid Ascites: Fluid volume 18; Appearance clear; Wbc 53; Rbc <2000; Polynuclear Wbc% 4; Lymphocytes 36%; Monocytes 20%; Eosinophils 0%; Basophils 0%; Mesothelial Cell 40%; Total protein 999; Albumin 0.49 06/28 Paracentesis: 3L straw colored fluid removed. 07/09 Paracentesis: 4.3L ascites fluid removed 07/16 Paracentesis: 3L ascites fluid removed. 07/10, Delimber Operator note: the patient is post another paracentesis with removal of 4.3 L of fluids. I started this patient on IV Rocephin yesterday due to concerns of SBP. I also noted an area of infection in the lower extremity, suggestive of cellulitis. For that reason, she was started on IV Rocephin. 07/10, Delimber Operator note: suspect liver cirrhosis and ascites. Treatment: 07/09 07/16 Rocephin 1gm IVPB Q24HR Can you please clarify Spontaneous bacterial peritonitis? [ x] Yes, Spontaneous bacterial peritonitis [ ] No, Spontaneous bacterial peritonitis ruled out [ ] Other, please specify [ ] Unable to determine (Template Last Revised: November 2020) MTDD
== END 2022-07-16 16:10 | DRG 432 ==
LOC: EC 17:25 → 2SICU 23:50 → 4SSUR 07-02 11:39
PROVIDERS: ADMIT Hospitalist; ATTEND Hospitalist
PROC: 0W9G3ZX Drainage of Peritoneal Cavity, Percutaneous Approach, Diagnostic (ICD-10-PCS; principal; 2022-06-28)
PROC: 05HC33Z Insertion of Infusion Device into Left Basilic Vein, Percutaneous Approach (ICD-10-PCS; 2022-07-03)
PROC: 0W9G3ZZ Drainage of Peritoneal Cavity, Percutaneous Approach (ICD-10-PCS; 2022-07-09)
PROC: 0W9G3ZZ Drainage of Peritoneal Cavity, Percutaneous Approach (ICD-10-PCS; 2022-07-16)
DX: K70.11 Alcoholic hepatitis with ascites (principal); K65.2 Spontaneous bacterial peritonitis; E87.1 Hypo-osmolality and hyponatremia; L03.116 Cellulitis of left lower limb; N39.0 Urinary tract infection, site not specified; E87.4 Mixed disorder of acid-base balance; F10.239 Alcohol dependence with withdrawal, unspecified; J98.11 Atelectasis; K70.31 Alcoholic cirrhosis of liver with ascites; K76.82 Hepatic encephalopathy; M06.9 Rheumatoid arthritis, unspecified; B96.20 Unspecified Escherichia coli [E. coli] as the cause of diseases classified elsewhere; I95.89 Other hypotension; D75.89 Other specified diseases of blood and blood-forming organs; K76.89 Other specified diseases of liver; E78.5 Hyperlipidemia, unspecified; R13.10 Dysphagia, unspecified; I10 Essential (primary) hypertension; R00.0 Tachycardia, unspecified; J44.9 Chronic obstructive pulmonary disease, unspecified; E83.42 Hypomagnesemia; Z20.822 Contact with and (suspected) exposure to COVID-19; F10.229 Alcohol dependence with intoxication, unspecified; Y90.6 Blood alcohol level of 120-199 mg/100 ml; E87.70 Fluid overload, unspecified; F41.9 Anxiety disorder, unspecified; K57.30 Diverticulosis of large intestine without perforation or abscess without bleeding; S90.32XA Contusion of left foot, initial encounter; Z79.899 Other long term (current) drug therapy; Z87.891 Personal history of nicotine dependence
CPT/HCPCS: 36410; 36415; 49083; 71045; 74177; 76705; 76937; 80048; 80053; 80074; 80143; 80320; 81001; 82042; 82140; 82150; 82533; 82607; 82747; 83519; 83605; 83690; 83735; 83880; 83930; 83935; 84100; 84132; 84157; 84295; 84300; 84439; 84443; 84484; 85025; 85027; 85610; 85730; 86140; 87040; 87077; 87086; 87186; 87635; 88108; 88305; 89050; 93005; 94640; 96365; 96375; 96376; 99291

== ENCOUNTER 2022-08-30 14:44 | Inpatient (IN) | payer MEDICARE ==
[2022-08-30 15:58] LABS: Basophils # (A) 0.1 k/uL (0-0.2); Basophils % (A) 1 %; Eosinophils # (A) 0.1 k/uL (0-0.7); Eosinophils % (A) 1 %; HCT 41.9 % (34.0-46.0); HGB 14.1 gm/dL (11.4-16.0); Lymphocytes # (A) 1.8 k/uL (1.0-4.8); Lymphocytes % (A) 17 %; MCH 35.6 pg (25.0-35.0); MCHC 33.7 g/dL (31.0-37.0); Macrocytosis Moderate; Mean Platelet Volume 7.8; Monocytes % (A) 10 %; Neutrophils # (A) 7.2 k/uL (1.3-7.7); Neutrophils % (A) 69 %; RBC 3.96 m/uL (3.80-5.40); RDW 14.1 % (11.5-15.5); WBC 10.4 k/uL (3.8-10.6)
[2022-08-30 16:05] LABS: MCV 105.8 fL (80.0-100.0)
[2022-08-30 16:06] LABS: Platelet Count 254 k/uL (150-450)
[2022-08-30 16:35] LABS: Albumin 3.3 g/dL (3.5-5.0); Calcium 8.7 mg/dL (8.4-10.2); Magnesium 1.7 mg/dL (1.6-2.3); Potassium 3.9 mmol/L (3.5-5.1); Total Protein 6.9 g/dL (6.3-8.2)
--- NOTE | 2022-08-30 17:16 | ED ---
General Adult HPI - General Chief complaint: Abdominal Pain Stated complaint: abd pain, fluid retention Time Seen by Provider: 08/30/22 15:06 Source: EMS Mode of arrival: EMS - History of Present Illness Initial comments: This is a 71-year-old female with a past medical history including cirrhosis and COPD presents emergency department for abdominal distention. The patient stated that she was last seen in the hospital for a drainage of the abdomen was a partially 9 months ago. The patient is an overall poor historian and denied having any acute pain besides the abdominal distention causing her symptoms minimal shortness of breath. It was reported by the nurse that the patient had been seen multiple times by her physician however when it was recommended to come to the emergency department for evaluation and drainage she refused to do so and walked out of the office. On arrival, the patient did admit to having on-call earlier today but was ANO 4. The patient did not complain of any other acute pain or complaints and denied any lightheadedness or dizziness. The patient stated that she had not seen any physician for her abdomen nor was never told that she needs to get drained. The patient was resting in bed comfortably. - Related Data Home Medications Medication Instructions Recorded Confirmed [place]-3 Fatty Acids/Fish Oil [Fish 3 cap PO DAILY 06/10/19 08/30/22 Oil 1,000 mg Softgel] Cyanocobalamin (Vitamin B-12) 1,000 mcg PO DAILY 08/30/22 08/30/22 [Vitamin B-12] Lactulose [Cephulac] 30 ml PO DAILY PRN 08/30/22 08/30/22 Mag Hydrox/Aluminum Hyd/Simeth 10 - 20 ml PO QID PRN 08/30/22 08/30/22 [Mylanta Maximum Strength Liq] Magnesium Hydroxide [Milk of 30 ml PO Q3D 08/30/22 08/30/22 Magnesia] Metoclopramide [Reglan] 5 mg PO AC-TID 08/30/22 08/30/22 Midodrine HCl [ProAmatine] 10 mg PO TID 08/30/22 08/30/22 Milk Thistle 150 mg PO DAILY 08/30/22 08/30/22 Pantoprazole [Protonix] 40 mg PO DAILY 08/30/22 08/30/22 Potassium Chloride ER [K-Dur 20] 20 meq PO DAILY 08/30/22 08/30/22 Simvastatin 40 mg PO HS 08/30/22 08/30/22 lisinopriL [Prinivil] 20 mg PO DAILY 08/30/22 08/30/22 traMADol HCl [Ultram] 50 mg PO Q8H PRN 08/30/22 08/30/22 Previous Rx's Medication Instructions Recorded Folic Acid 1 mg PO DAILY tab 07/16/22 Multivitamins, Thera [Multivitamin 1 each PO DAILY tab 07/16/22 (formulary)] Spironolactone [Aldactone] 25 mg PO DAILY tab 07/16/22 Torsemide [Demadex] 20 mg PO DAILY tab 07/16/22 Allergies Allergy/AdvReac Type Severity Reaction Status Date / Time No Known Allergies Allergy Verified 08/30/22 16:01 Review of Systems ROS Statement: Those systems with pertinent positive or pertinent negative responses have been documented in the HPI. ROS Other: All systems not noted in ROS Statement are negative. Past Medical History Past Medical History: COPD, GERD/Reflux, Hyperlipidemia, Hypertension, Rheumatoid Arthritis (RA) Additional Past Medical History / Comment(s): Pancreatitis History of Any Multi-Drug Resistant Organisms: None Reported Past Surgical History: Hysterectomy, Tubal Ligation Additional Past Surgical History / Comment(s): One ovary removed, stomach muscles repaired, Past Anesthesia/Blood Transfusion Reactions: No Reported Reaction Past Psychological History: No Psychological Hx Reported Smoking Status: Former smoker Past Alcohol Use History: Daily Past Drug Use History: None Reported - Past Family History Father Family Medical History: Cancer Additional Family Medical History / Comment(s): Throat cancer and . Mother Additional Family Medical History / Comment(s): Brain aneurysm and . Son(s) Family Medical History: Hypertension Additional Family Medical History / Comment(s): Oldest son has HTN. General Exam Limitations: no limitations General appearance: alert, in no apparent distress Head exam: Present: atraumatic, normocephalic Eye exam: Present: normal appearance, PERRL Pupils: Present: normal accommodation ENT exam: Present: normal exam, normal oropharynx, mucous membranes moist Neck exam: Present: normal inspection, full ROM Respiratory exam: Present: normal lung sounds bilaterally Cardiovascular Exam: Present: regular rate, normal rhythm, normal heart sounds GI/Abdominal exam: Present: distended, normal bowel sounds Extremities exam: Present: normal inspection, full ROM Back exam: Present: normal inspection, full ROM Neurological exam: Present: alert, oriented X3, CN II-XII intact Psychiatric exam: Present: normal affect, normal mood Skin exam: Present: warm, dry Course Vital Signs 08/30/22 08/30/22 14:46 17:01 Temperature 97.7 F Pulse Rate 116 H 103 H Respiratory 20 16 Rate Blood Pressure 101/70 103/61 O2 Sat by Pulse 95 97 Oximetry Medical Decision Making - Medical Decision Making The patient was seen and evaluated in the emergency department. Physical exam, the patient was resting in bed without any acute distress. Vital signs admission were within normal limits however the patient had mild tachycardia. Due to the nature the patient's abdominal distention with likely ascites seco ndary to cirrhosis, laboratory workup was obtained as was a CT abdomen and pelvis to rule out any other intra-abdominal pathology. Laboratory workup did show a sodium of 126, and a bilirubin of 4.0 which is near her baseline of the last several months. A computed tomography scan was obtained and showed a significant amount of abdominal ascites without any other intra-abdominal pathology noted. Due to the patient's significant abdominal ascites that his been present the last several months, a abdominal paracentesis was not performed in the emergency department however the patient will be admitted to the inpatient internal medicine service for evaluation as well as drainage by interventional radiology. The covering physician, Dr. Jacinto was made aware of the patient and Chantal Ahn was contacted at [phone] for admission and did accept the patient for admission. Interventional radiology will be placed and consul at this time. The patient was told of this plan and was agreeable. The patient was admitted in stable condition. - Lab Data Result diagrams: 08/30/22 15:50 08/30/22 15:50 Lab Results 08/30/22 08/30/22 08/30/22 Range/Units 15:50 15:50 15:50 WBC 10.4 (3.8-10.6) k/uL RBC 3.96 (3.80-5.40) m/uL Hgb 14.1 (11.4-16.0) gm/dL Hct 41.9 (34.0-46.0) % MCV 105.8 H D (80.0-100.0) fL MCH 35.6 H (25.0-35.0) pg MCHC 33.7 (31.0-37.0) g/dL RDW 14.1 (11.5-15.5) % Plt Count 254 D (150-450) k/uL MPV 7.8 Neutrophils % 69 % Lymphocytes % 17 % Monocytes % 10 % Eosinophils % 1 % Basophils % 1 % Neutrophils # 7.2 (1.3-7.7) k/uL Lymphocytes # 1.8 (1.0-4.8) k/uL Monocytes # 1.0 (0-1.0) k/uL Eosinophils # 0.1 (0-0.7) k/uL Basophils # 0.1 (0-0.2) k/uL Macrocytosis Moderate Sodium 126 L (137-145) mmol/L Potassium 3.9 (3.5-5.1) mmol/L Chloride 91 L (98-107) mmol/L Carbon Dioxide 18 L (22-30) mmol/L Anion Gap 17 mmol/L BUN 11 (7-17) mg/dL Creatinine 1.01 (0.52-1.04) mg/dL Est GFR (CKD-EPI)AfAm 64 (>60 ml/min/1.73 sqM) Est GFR (CKD-EPI)NonAf 55 (>60 ml/min/1.73 sqM) Glucose 106 H (74-99) mg/dL Calcium 8.7 (8.4-10.2) mg/dL Magnesium 1.7 (1.6-2.3) mg/dL Total Bilirubin 4.0 H (0.2-1.3) mg/dL AST 63 H (14-36) U/L ALT 26 (4-34) U/L Alkaline Phosphatase 137 H (38-126) U/L Troponin I <0.012 (0.000-0.034) ng/mL NT-Pro-B Natriuret Pep pg/mL Total Protein 6.9 (6.3-8.2) g/dL Albumin 3.3 L (3.5-5.0) g/dL Lipase 211 (23-300) U/L Serum Alcohol 89 mg/dL 08/30/22 Range/Units 15:50 WBC (3.8-10.6) k/uL RBC (3.80-5.40) m/uL Hgb (11.4-16.0) gm/dL Hct (34.0-46.0) % MCV (80.0-100.0) fL MCH (25.0-35.0) pg MCHC (31.0-37.0) g/dL RDW (11.5-15.5) % Plt Count (150-450) k/uL MPV Neutrophils % % Lymphocytes % % Monocytes % % Eosinophils % % Basophils % % Neutrophils # (1.3-7.7) k/uL Lymphocytes # (1.0-4.8) k/uL Monocytes # (0-1.0) k/uL Eosinophils # (0-0.7) k/uL Basophils # (0-0.2) k/uL Macrocytosis Sodium (137-145) mmol/L Potassium (3.5-5.1) mmol/L Chloride (98-107) mmol/L Carbon Dioxide (22-30) mmol/L Anion Gap mmol/L BUN (7-17) mg/dL Creatinine (0.52-1.04) mg/dL Est GFR (CKD-EPI)AfAm (>60 ml/min/1.73 sqM) Est GFR (CKD-EPI)NonAf (>60 ml/min/1.73 sqM) Glucose (74-99) mg/dL Calcium (8.4-10.2) mg/dL Magnesium (1.6-2.3) mg/dL Total Bilirubin (0.2-1.3) mg/dL AST (14-36) U/L ALT (4-34) U/L Alkaline Phosphatase (38-126) U/L Troponin I (0.000-0.034) ng/mL NT-Pro-B Natriuret Pep 779 pg/mL Total Protein (6.3-8.2) g/dL Albumin (3.5-5.0) g/dL Lipase (23-300) U/L Serum Alcohol mg/dL Disposition Clinical Impression: Abdominal ascites Disposition: ADMITTED IP TO THIS HOSP Condition: Stable Is patient prescribed a controlled substance at d/c from ED?: No Referrals: Pearl Stoner MD [Primary Care Provider] - 1-2 days Time of Disposition: 18:44 Decision to Admit Reason: Admit from EC Decision Date: 08/30/22 Decision Time: 18:44
--- NOTE | 2022-08-30 17:33 | CT ---
EXAMINATION TYPE: CT abdomen pelvis w con DATE OF EXAM: 08/30/2022 COMPARISON: 06/26/2022 HISTORY: abdominal pain, diarrhea CT DLP: 869.2 mGycm Automated exposure control for dose reduction was used. CONTRAST: Performed with IV Contrast, patient injected with 100 mL of Isovue 300. The lung bases show minimal subsegmental atelectasis. No pleural effusion. Heart size is normal. No p ericardial effusion. Liver is relatively small. There is massive abdominal ascites. Spleen is intact. No pancreatic mass. Stomach is intact. There are cysts in the right lobe of the liver that measure up to 3 cm. There is no adrenal mass. Kidneys show satisfactory contrast opacification. No hydronephrosis. Ureter s are not dilated. No retroperitoneal adenopathy. Gallbladder is intact. There are numerous sigmoid diverticula. No diverticulitis. No inguinal hernia. Bladder distends favian hly. No evidence of a bowel obstruction. No evidence of free air. The lumbar vertebrae have fairly normal alignment. There is a slight levoscoliosis. There is degenera tive disc space narrowing in the mid lumbar spine with spurring and vacuum disc no compression fractu re. Bony pelvis is intact. The hip joints are intact. IMPRESSION: Liver is relatively small and heterogeneous measuring 14 cm in length and consistent with cirrhosis. There is massive abdominal ascites which is increased compared to old exam. No significant varices se en. Colonic diverticulosis without diverticulitis.
[2022-08-30] MEDS ORDERED: MORPHINE SULFATE 4 MG/ML SYRINGE IVP STA (18:51)
[2022-08-30] MEDS ORDERED: NALOXONE 0.4 MG/ML 1 ML VIAL IV PRN (18:58)
[2022-08-31] MEDS ORDERED: THIAMINE 100 MG/ML 2 ML VIAL IM STA (13:38)
[2022-08-31 15:29] LABS: INR 1.9 (<1.2); Prothrombin Time 18.7 sec (9.0-12.0)
--- NOTE | 2022-08-31 16:22 | US ---
EXAM: Ultrasound-guided Paracentesis DATE: 08/31/2022 4:16 PM REASON FOR EXAM: Ascites RADIOLOGIST: Dr. Alex VARNISHER: None ANESTHESIA: Local Lidocaine TECHNIQUE: I verify that I have discussed the potential benefits, risks, and side effects regarding this treatme nt/procedure, the likelihood of the patient achieving his or her goals, and the potential problems th at might occur during recuperation. I verify that I have explained the alternatives to the patient i ncluding the risks, benefits, and side effects related to the alternatives and the risks related to n ot receiving the operation/procedure/treatment. The patient/surrogate decision maker has had an oppo rtunity to ask and have questions answered. I have secured the patient's or the surrogate decision m rita's consent prior to the operation/procedure/treatment. Patient was placed supine on ultrasound table and the lower abdomen was prepped and draped in usual s terile fashion. 1% lidocaine was infused into the skin and subcutaneous soft tissues to achieve local anesthesia. Under sonographic guidance a 5 F Yueh needle was advanced into the ascites. Approximat candelario 4400 ml of cloudy yellow fluid was removed. FINDINGS: Sonographic images of the abdomen demonstrate a large amount of free fluid. IMPRESSION: Technically successful uncomplicated paracentesis.
[2022-08-31] MEDS: LACTULOSE 20 GM/30 ML CUP PO SCH ×2 (16:43→21:05)
[2022-08-31] MEDS: ALBUMIN HUMAN 25% 50 ML in EMPTY BAG 1 BAG IVPB SCH ×2 (17:15→17:31)
[2022-09-01 00:04] LABS: Appearance,BF Clear
[2022-09-01 01:09] LABS: Glucose, BF Source Ascites; Glucose, Body Fluid 137 mg/dL; T. Protein, Body Fluid Source Ascites; Total Protein, Body Fluid 683 mg/dL
--- NOTE | 2022-09-01 01:27 | HP ---
HISTORY AND PHYSICAL CHIEF COMPLAINT: Abdominal pain and fullness. HISTORY OF PRESENT ILLNESS: This is a 71-year-old woman with a past medical history of alcoholic cirrhosis, was admitted with significant abdominal distention. The patient also found to have significant alcohol level. The patient admitted for further evaluation for paracentesis. There is no history of any fever, rigors, or chills. The patient is mildly confused. PAST MEDICAL HISTORY: Reviewed include alcoholic cirrhosis. Rest of the medications and whole chart are reviewed. HOME MEDICATIONS: Again reviewed, lisinopril. Doses and rest of medications reviewed. ALLERGIES: None. FAMILY HISTORY: History of cancer in the family. SOCIAL HISTORY: Previous history of smoking, alcohol. REVIEW OF SYSTEMS: A 14-point review of systems is negative except as mentioned earlier. PHYSICAL EXAMINATION: VITAL SIGNS: Pulse is 110, blood pressure 135/90, respirations 16. HEENT: Conjunctivae normal. NECK: No JVD. CARDIOVASCULAR: S1, S2 muffled. RESPIRATIONS: Breath sounds diminished at the bases. A few scattered rhonchi and crackles. ABDOMEN: Soft. There is significant ascites. LEGS: No edema. NERVOUS SYSTEM: No focal deficits. LABS: CBC within normal limits. The rest of the labs are noted. ASSESSMENT: 1. Abdominal distention, ascites recurrent, secondary to cirrhosis of liver. 2. Alcohol withdrawal. 3. ETOH. 4. Chronic obstructive pulmonary disease. 5. Hypertension. 6. Multiple medical issues. RECOMMENDATIONS AND DISCUSSION: This is a 71-year-old woman admitted with multiple medical issues, we will monitor the patient closely. Continue the current medications and symptomatic treatment. Otherwise, Interventional Radiology consultation, abdominal aspiration and cultures, otherwise, [facility] protocol. Repeat labs. Prognosis guarded because of multiple complex medical issues. Further recommendations to follow. MMODL / IJN: [id number] /
[2022-09-01 05:13] VITALS: BP 107/67; PULSE 90; RESP 15; TEMP 98.4
[2022-09-01] MEDS ORDERED: THIAMINE 100 MG TAB PO SCH (09:00)
[2022-09-01] MEDS: LACTULOSE 20 GM/30 ML CUP PO SCH (09:40)
[2022-09-01 11:18] LABS: Basophils # (A) 0.04 X 10*3/uL (0.00-0.10); Basophils % (A) 0.5 %; Eosinophils # (A) 0.15 X 10*3/uL (0.04-0.35); Eosinophils % (A) 1.8 %; HCT 28.7 % (37.2-46.3); HGB 10.2 g/dL (12.0-15.0); Immature Grans, Automated 0.6 %; Lymphocytes # (A) 1.87 X 10*3/uL (0.90-5.00); Lymphocytes % (A) 22.2 %; MCH 35.3 pg (27.0-32.0); MCHC 35.5 g/dL (32.0-37.0); MCV 99.3 fL (80.0-97.0); Mean Platelet Volume 9.1 fL (9.5-12.2); Monocytes # (A) 1.16 X 10*3/uL (0.20-1.00); Monocytes % (A) 13.8 %; NRBC Per 100 WBC 0 /100 WBCS (0.0-0.0); Neutrophils # (A) 5.16 X 10*3/uL (1.80-7.70); Neutrophils % (A) 61.1 %; Platelet Count 147 X 10*3/uL (140-440); RBC 2.89 X 10*6/uL (4.10-5.20); RDW 15.7 % (11.5-14.5); WBC 8.43 X 10*3/uL (4.50-10.00)
[2022-09-01 12:07] LABS: African American GFR (CKD) 65.9 (60.0-200.0); Albumin 2.7 g/dL (3.8-4.9); Albumin/Globulin Ratio 1.21 (1.60-3.17); Anion Gap 8.8 mmol/L (10.00-18.00); BUN/Creat Ratio 12.79 Ratio (12.00-20.00); Blood Urea Nitrogen 12.6 mg/dL (9.0-27.0); Calcium 8.7 mg/dL (8.7-10.3); Carbon Dioxide 26.2 mmol/L (20.0-27.5); Globulin 2.2 g/dL (1.6-3.3); Non-African American GFR(CKD) 56.9 (60.0-200.0); Potassium 4.9 mmol/L (3.5-5.5); Total Bilirubin 3.6 mg/dL (0.30-1.20); Total Protein 4.9 g/dL (6.2-8.2)
--- NOTE | 2022-09-01 18:01 | DS ---
DISCHARGE SUMMARY FINAL DIAGNOSES: 1. Abdominal distention and ascites secondary to cirrhosis of liver, status post paracentesis, 4.5 L. 2. Alcohol withdrawal. 3. BPH. 4. Chronic obstructive pulmonary disease. 5. Hypertension. 6. Multiple medical issues. DISCHARGE DISPOSITION: The patient will be discharged in stable condition with guarded prognosis. HISTORY OF PRESENT ILLNESS: This woman with a past medical history , admitted with abdominal distention. The patient had a paracentesis. The patient's alcohol is also positive and the patient denied taking much of alcohol. PHYSICAL EXAMINATION: VITAL SIGNS: Stable. ABDOMEN: Soft. Ascites present. DISCHARGE INSTRUCTIONS: The patient will be discharged with recommendation to continue the same home medications. Follow up with Dr. Stoner. Followup labs with Dr. Stoner. Prognosis guarded. Recommended alcohol cessation. MMODL / IJN: [id number] / MTDD
== END 2022-09-01 13:17 | disposition home or self-care (01) | DRG 433 ==
LOC: EC 14:44 → 4SSUR 18:53 → 5NMEDONC 08-31 17:53
PROVIDERS: ADMIT Hospitalist; ATTEND Hospitalist
PROC: 0W9G30Z Drainage of Peritoneal Cavity with Drainage Device, Percutaneous Approach (ICD-10-PCS; principal; 2022-08-31)
DX: K70.31 Alcoholic cirrhosis of liver with ascites (principal); F10.239 Alcohol dependence with withdrawal, unspecified; I10 Essential (primary) hypertension; J44.9 Chronic obstructive pulmonary disease, unspecified; M06.9 Rheumatoid arthritis, unspecified; E78.5 Hyperlipidemia, unspecified; Z87.891 Personal history of nicotine dependence; Z90.710 Acquired absence of both cervix and uterus; Z98.51 Tubal ligation status; Z87.19 Personal history of other diseases of the digestive system; Z82.49 Family history of ischemic heart disease and other diseases of the circulatory system; Z71.41 Alcohol abuse counseling and surveillance of alcoholic; Y90.4 Blood alcohol level of 80-99 mg/100 ml
CPT/HCPCS: 36415; 49083; 74177; 80053; 80320; 82140; 82945; 83690; 83735; 83880; 84157; 84484; 85025; 85610; 87040; 87070; 87075; 87205; 88108; 88305; 89050; 96365; 96372; 96374; 96375; 99285

== ENCOUNTER 2022-09-18 14:32 | Inpatient (IN) | payer MEDICARE ==
--- NOTE | 2022-09-18 16:49 | XR ---
EXAMINATION TYPE: XR foot complete LT DATE OF EXAM: 09/18/2022 CLINICAL HISTORY: Infection TECHNIQUE: Frontal, lateral and oblique images of the left foot are obtained. COMPARISON: None. FINDINGS: There is no acute fracture/dislocation evident. Severe degenerative change involving the f irst metatarsal phalangeal joint. Mild soft tissue swelling overlying the dorsum of the foot. No evid ence for osteomyelitis. IMPRESSION: There is no acute fracture or dislocation. ICD 10 NO FRACTURE, INITIAL EVALUATION
[2022-09-18 16:52] LABS: Basophils % (A) 0 %; Eosinophils # (A) 0.1 k/uL (0-0.7); Eosinophils % (A) 1 %; HCT 39.3 % (34.0-46.0); HGB 13.4 gm/dL (11.4-16.0); Lymphocytes # (A) 1.1 k/uL (1.0-4.8); Lymphocytes % (A) 11 %; MCH 34.6 pg (25.0-35.0); MCHC 34.2 g/dL (31.0-37.0); MCV 100.9 fL (80.0-100.0); Macrocytosis Slight; Mean Platelet Volume 7.8; Monocytes % (A) 10 %; Neutrophils % (A) 74 %; Platelet Count 175 k/uL (150-450); RBC 3.89 m/uL (3.80-5.40); RDW 14.7 % (11.5-15.5); WBC 9.4 k/uL (3.8-10.6)
--- NOTE | 2022-09-18 16:56 | ED ---
General Adult HPI - General Chief complaint: Abdominal Pain Stated complaint: fluid retention Time Seen by Provider: 09/18/22 15:30 Source: patient, family, RN notes reviewed, old records reviewed Mode of arrival: wheelchair Limitations: no limitations - History of Present Illness Initial comments: This is a 71-year-old female presents emergency Department because she has an infection in her left foot and because she has quite a bit of ascites and she needs her abdomen tapped she believes. Patient states it is causing her difficulty breathing especially with exertion. Patient denies any chest pain or palpitations. Patient denies any fever chills. Patient states when it is gotten this pain in the past she has had it tapped before. Patient states the foot has been infected for quite a while is been trying to take care of it but more recently the foot is having quite a bit of discharge that is very weak and consistent with possible. Patient states the foot does hurt. Patient states she used to be a heavy drinker and is why she has ascites but she hasn't drink a month. - Related Data Home Medications Medication Instructions Recorded Confirmed [place]-3 Fatty Acids/Fish Oil [Fish 3 cap PO DAILY 06/10/19 09/18/22 Oil 1,000 mg Softgel] Cyanocobalamin (Vitamin B-12) 1,000 mcg PO DAILY 08/30/22 09/18/22 [Vitamin B-12] Lactulose [Cephulac] 20 gm PO DAILY PRN 08/30/22 09/18/22 Mag Hydrox/Aluminum Hyd/Simeth 10 - 20 ml PO QID PRN 08/30/22 09/18/22 [Mylanta Maximum Strength Liq] Magnesium Hydroxide [Milk of 2,400 mg PO Q3D 08/30/22 09/18/22 Magnesia] Metoclopramide [Reglan] 5 mg PO AC-TID 08/30/22 09/18/22 Midodrine HCl [ProAmatine] 10 mg PO TID 08/30/22 09/18/22 Milk Thistle 150 mg PO DAILY 08/30/22 09/18/22 Pantoprazole [Protonix] 40 mg PO DAILY 08/30/22 09/18/22 Potassium Chloride ER [K-Dur 20] 20 meq PO DAILY 08/30/22 09/18/22 Simvastatin 40 mg PO HS 08/30/22 09/18/22 lisinopriL [Prinivil] 20 mg PO DAILY 08/30/22 09/18/22 traMADol HCl [Ultram] 50 mg PO Q8H PRN 08/30/22 09/18/22 Multivitamins, Thera [Multivitamin 1 tab PO DAILY 09/18/22 09/18/22 (formulary)] Previous Rx's Medication Instructions Recorded Folic Acid 1 mg PO DAILY tab 07/16/22 Spironolactone [Aldactone] 25 mg PO DAILY tab 07/16/22 Torsemide [Demadex] 20 mg PO DAILY tab 07/16/22 Allergies Allergy/AdvReac Type Severity Reaction Status Date / Time No Known Allergies Allergy Verified 09/18/22 16:44 Review of Systems ROS Statement: Those systems with pertinent positive or pertinent negative responses have been documented in the HPI. ROS Other: All systems not noted in ROS Statement are negative. Past Medical History Past Medical History: COPD, GERD/Reflux, Hyperlipidemia, Hypertension, Liver Disease, Rheumatoid Arthritis (RA) Additional Past Medical History / Comment(s): Pancreatitis History of Any Multi-Drug Resistant Organisms: None Reported Past Surgical History: Hysterectomy, Tubal Ligation Additional Past Surgical History / Comment(s): One ovary removed, stomach muscles repaired Past Anesthesia/Blood Transfusion Reactions: No Reported Reaction Past Psychological History: No Psychological Hx Reported Smoking Status: Former smoker Past Alcohol Use History: Daily Past Drug Use History: None Reported - Past Family History Father Family Medical History: Cancer Additional Family Medical History / Comment(s): Throat cancer and . Mother Additional Family Medical History / Comment(s): Brain aneurysm and . Son(s) Family Medical History: Hypertension Additional Family Medical History / Comment(s): Oldest son has HTN. General Exam - General Exam Comments Initial Comments: GENERAL: Patient is well-developed and well-nourished. Patient is nontoxic and well- hydrated and is in mild distress. ENT: Neck is soft and supple. No significant lymphadenopathy is noted. Oropharynx is clear. Moist mucous membranes. Neck has full range of motion without eliciting any pain. EYES: The sclera were anicteric and conjunctiva were pink and moist. Extraocular movements were intact and pupils were equal round and reactive to light. Eyelids were unremarkable. PULMONARY: Unlabored respirations. Good breath sounds bilaterally. No audible rales rhonchi or wheezing was noted. CARDIOVASCULAR: There is a regular rate and rhythm without any murmurs gallops or rubs. ABDOMEN: Patient's abdomen is distended consistent with ascites however there is no tenderness on palpation. SKIN: Skin is clear with no lesions or rashes and otherwise unremarkable. NEUROLOGIC: Patient is alert and oriented x3. Cranial nerves II through XII are grossly intact. Motor and sensory are also intact. Normal speech, volume and content. Symmetrical smile. MUSCULOSKELETAL: Normal extremities with adequate strength and full range of motion. Left foot has a small wound measuring about half centimeter in diameter but there is copious amounts of pus coming out of the wound. Cultures are taken. The area around the open wound is tender to palpation LYMPHATICS: No significant lymphadenopathy is noted PSYCHIATRIC: Normal psychiatric evaluation. Limitations: no limitations Course Vital Signs 09/18/22 14:37 Temperature 96 F L Pulse Rate 100 Respiratory 20 Rate Blood Pressure 111/80 O2 Sat by Pulse 97 Oximetry Medical Decision Making - Medical Decision Making X-ray of the foot was interpreted by me. X-ray foot shows no fractures and no signs of infection. Patient did receive Rocephin for the infection in the foot. I spoke with [facility] agreed to admit the patient admitted the patient remaining orders. I continue the naproxen the floor. Patient's lactic acid was elevated I don't believe it's from the infection the patient does not have any other signs of sepsis or septic shock I believe this is from the patient's chronic liver failure. Patient also cannot tolerate 30 mL of fluid per KG because of her significant ascites - Lab Data Result diagrams: 09/18/22 16:14 09/18/22 16:14 Lab Results 09/18/22 09/18/22 09/18/22 Range/Units 16:14 16:14 16:14 WBC 9.4 (3.8-10.6) k/uL RBC 3.89 (3.80-5.40) m/uL Hgb 13.4 (11.4-16.0) gm/dL Hct 39.3 (34.0-46.0) % MCV 100.9 H (80.0-100.0) fL MCH 34.6 (25.0-35.0) pg MCHC 34.2 (31.0-37.0) g/dL RDW 14.7 (11.5-15.5) % Plt Count 175 (150-450) k/uL MPV 7.8 Neutrophils % 74 % Lymphocytes % 11 % Monocytes % 10 % Eosinophils % 1 % Basophils % 0 % Neutrophils # 7.0 (1.3-7.7) k/uL Lymphocytes # 1.1 (1.0-4.8) k/uL Monocytes # 1.0 (0-1.0) k/uL Eosinophils # 0.1 (0-0.7) k/uL Basophils # 0.0 (0-0.2) k/uL Macrocytosis Slight Sodium 118 L* (137-145) mmol/L Potassium 4.6 (3.5-5.1) mmol/L Chloride 89 L (98-107) mmol/L Carbon Dioxide 21 L (22-30) mmol/L Anion Gap 8 mmol/L BUN 13 (7-17) mg/dL Creatinine 0.92 (0.52-1.04) mg/dL Est GFR (CKD-EPI)AfAm 72 (>60 ml/min/1.73 sqM) Est GFR (CKD-EPI)NonAf 62 (>60 ml/min/1.73 sqM) Glucose 124 H (74-99) mg/dL Plasma Lactic Acid Julio Cesar 4.4 H* (0.7-2.0) mmol/L Calcium 8.1 L (8.4-10.2) mg/dL Magnesium 1.3 L (1.6-2.3) mg/dL Total Bilirubin 6.2 H (0.2-1.3) mg/dL AST 64 H (14-36) U/L ALT 28 (4-34) U/L Alkaline Phosphatase 144 H (38-126) U/L Total Protein 5.7 L (6.3-8.2) g/dL Albumin 2.5 L (3.5-5.0) g/dL Amylase 54 (30-110) U/L Lipase 128 (23-300) U/L Serum Alcohol <10 mg/dL Disposition Clinical Impression: Abscess of foot, Ascites, Hyponatremia, Lactic acidosis Disposition: ADMITTED IP TO THIS [facility] Time of Disposition: 17:20
[2022-09-18 17:16] LABS: ALT 28 U/L (4-34); AST 64 U/L (14-36); African American GFR (CKD) 72 (>60 ml/min/1.73 sqM); Albumin 2.5 g/dL (3.5-5.0); Alcohol <10 mg/dL; Alkaline Phosphatase 144 U/L (38-126); Amylase 54 U/L (30-110); Anion Gap 8 mmol/L; Blood Urea Nitrogen 13 mg/dL (7-17); Calcium 8.1 mg/dL (8.4-10.2); Carbon Dioxide 21 mmol/L (22-30); Chloride 89 mmol/L (98-107); Glucose 124 mg/dL (74-99); Lipase 128 U/L (23-300); Magnesium 1.3 mg/dL (1.6-2.3); Non-African American GFR(CKD) 62 (>60 ml/min/1.73 sqM); Potassium 4.6 mmol/L (3.5-5.1); Total Bilirubin 6.2 mg/dL (0.2-1.3); Total Protein 5.7 g/dL (6.3-8.2)
[2022-09-18] MEDS ORDERED: AMPICILLIN-SULBACTAM 3 GM in SODIUM CHLORIDE 0.9% 100 ML IVPB STA (17:27)
[2022-09-18 17:32] LABS: Sodium 118 mmol/L (137-145)
[2022-09-18] MEDS: SODIUM CHLORIDE 0.9% 1,000 ML IV SCH (18:58)
[2022-09-18 20:06] LABS: Glucose,Whole Blood 84 mg/dL (70-110)
[2022-09-18 20:31] LABS: T4, Free (Free Thyroxine) 1.54 ng/dL (0.78-2.19)
[2022-09-18] MEDS: MAGNESIUM SULFATE-D5W PMX 1 GM in DEXTROSE/WATER 1 100ML.BAG IVPB SCH ×2 (21:22→22:46)
[2022-09-18] MEDS ORDERED: traMADol 50 MG TAB PO SCH (22:00)
[2022-09-18] MEDS: traMADol 50 MG TAB PO PRN (22:28)
[2022-09-19 00:42] LABS: Creatinine,Urine Random 157.7 mg/dL
[2022-09-19] MEDS: AMPICILLIN-SULBACTAM 3 GM in SODIUM CHLORIDE 0.9% 100 ML IVPB SCH ×4 (00:52→17:30)
[2022-09-19 01:29] LABS: Albumin 2.3 g/dL (3.5-5.0); Calcium 7.8 mg/dL (8.4-10.2); Magnesium 2.1 mg/dL (1.6-2.3); Potassium 4.6 mmol/L (3.5-5.1); Total Bilirubin 5.2 mg/dL (0.2-1.3); Total Protein 5.3 g/dL (6.3-8.2)
[2022-09-19 05:54] LABS: Albumin 2.2 g/dL (3.5-5.0); Calcium 7.7 mg/dL (8.4-10.2); Magnesium 1.9 mg/dL (1.6-2.3); Potassium 4.2 mmol/L (3.5-5.1); Total Bilirubin 4.9 mg/dL (0.2-1.3); Total Protein 5.1 g/dL (6.3-8.2)
[2022-09-19] MEDS ORDERED: SODIUM CHLORIDE TAB 1 GM TAB PO STA (07:45)
[2022-09-19] MEDS: SODIUM CHLORIDE 0.9% 1,000 ML IV SCH (08:25)
[2022-09-19] MEDS ORDERED: LACTULOSE 20 GM/30 ML CUP PO PRN (09:02)
[2022-09-19] MEDS ORDERED: METOCLOPRAMIDE 5 MG TAB PO PRN (09:02)
[2022-09-19] MEDS ORDERED: traMADol 50 MG TAB PO PRN (09:04)
--- NOTE | 2022-09-19 10:17 | P.HPIM ---
History of Present Illness Pleasant 71 years old female with multiple medical problems as below. Presents because of c/o swelling to abdomen with short of breath hx liver cirrohsis lung sounds crackles bilat jaundice eye with wound to left foot. She comes because of abdominal distention and some little dyspnea, no significant chest pain, no coughing, she has some mild periumbilical abdominal pain for the last 10 days, nonspecific, nonradiating She denies any headache dizziness or weakness or numbness, no urinary complaints. No vomiting or diarrhea. Also patient is awake and alert to place and person but she is disoriented to time, she thought she came to the hospital 1 week ago but actually she came last night. Patient was updated Patient also she has a chronic ulcer in her left foot and there is still some discharge but there is no surrounding cellulitis and x-ray looks negative. Patient was recently discharged from this hospital 06/10-07/16 for alcoholic liver hepatitis and left foot infection and she underwent paracentesis 2. Also she had hypernatremia 106 went up to 125 open discharge Currently presents also with abdominal distention and shortness of breath. She denies a smoking or illicit drugs, first she told me she drinks wine only one cup twice a month but then when I ask her more she said last week she drink twice however she denies daily drinking of alcohol. At baseline she walks with a walker Vitals looks stable, afebrile Sodium 117-118 on admission. Lactic acid elevated 4.1, currently 2.3. Bilirubin elevated 4.9-6.2, last time she was discharged on bilirubin of 3.6 and on 08/14/2022 was 5.7 Mildly elevated liver enzymes, AST 4.9, ALT normal 24. Urine osmolality is 291 Serum alcohol: Less than 10 Foot x-ray showing no fracture dislocation In the emergency room she received Unasyn, ceftriaxone 1 and placed on normal saline 75 mL/h with nephrology been consulted Review of Systems Review of systems CONSTITUTIONAL: No fever, no malaise, no fatigue. HEENT: No recent visual problems or hearing problems. Denied any sore throat. CARDIOVASCULAR: No orthopnea, PND, no palpitations, no syncope. PULMONARY: no cough, no hemoptysis. GASTROINTESTINAL: No diarrhea, no nausea, no vomiting,. Normoactive bowel sounds. NEUROLOGICAL: No headaches, no weakness, no numbness. HEMATOLOGICAL: Denies any bleeding or petechiae. GENITOURINARY: Denies any burning micturition, frequency, or urgency. MUSCULOSKELETAL/RHEUMATOLOGICAL: Denies any joint pain, swelling, or any muscle pain. ENDOCRINE: Denies any polyuria or polydipsia. Past Medical History Past Medical History: COPD, GERD/Reflux, Hyperlipidemia, Hypertension, Liver Disease, Rheumatoid Arthritis (RA) Additional Past Medical History / Comment(s): Pancreatitis History of Any Multi-Drug Resistant Organisms: None Reported Past Surgical History: Hysterectomy, Tubal Ligation Additional Past Surgical History / Comment(s): One ovary removed, stomach muscles repaired Past Anesthesia/Blood Transfusion Reactions: No Reported Reaction Smoking Status: Former smoker - Past Family History Father Family Medical History: Cancer Additional Family Medical History / Comment(s): Throat cancer and . Mother Additional Family Medical History / Comment(s): Brain aneurysm and . Son(s) History Unknown: Yes Family Medical History: Hypertension Additional Family Medical History / Comment(s): Oldest son has HTN. Medications and Allergies Home Medications Medication Instructions Recorded Confirmed [place]-3 Fatty Acids/Fish Oil [Fish 3 cap PO DAILY 06/10/19 09/18/22 History Oil 1,000 mg Softgel] Folic Acid 1 mg PO DAILY tab 07/16/22 09/18/22 Rx Spironolactone [Aldactone] 25 mg PO DAILY tab 07/16/22 09/18/22 Rx Torsemide [Demadex] 20 mg PO DAILY tab 07/16/22 09/18/22 Rx Cyanocobalamin (Vitamin B-12) 1,000 mcg PO DAILY 08/30/22 09/18/22 History [Vitamin B-12] Lactulose [Cephulac] 20 gm PO DAILY PRN 08/30/22 09/18/22 History Mag Hydrox/Aluminum Hyd/Simeth 10 - 20 ml PO QID PRN 08/30/22 09/18/22 History [Mylanta Maximum Strength Liq] Magnesium Hydroxide [Milk of 2,400 mg PO Q3D 08/30/22 09/18/22 History Magnesia] Metoclopramide [Reglan] 5 mg PO AC-TID 08/30/22 09/18/22 History Midodrine HCl [ProAmatine] 10 mg PO TID 08/30/22 09/18/22 History Milk Thistle 150 mg PO DAILY 08/30/22 09/18/22 History Pantoprazole [Protonix] 40 mg PO DAILY 08/30/22 09/18/22 History Potassium Chloride ER [K-Dur 20] 20 meq PO DAILY 08/30/22 09/18/22 History Simvastatin 40 mg PO HS 08/30/22 09/18/22 History lisinopriL [Prinivil] 20 mg PO DAILY 08/30/22 09/18/22 History traMADol HCl [Ultram] 50 mg PO Q8H PRN 08/30/22 09/18/22 History Multivitamins, Thera [Multivitamin 1 tab PO DAILY 09/18/22 09/18/22 History (formulary)] Allergies Allergy/AdvReac Type Severity Reaction Status Date / Time No Known Allergies Allergy Verified 09/18/22 16:44 Physical Exam Vitals: Vital Signs Temp Pulse Pulse Resp BP BP Pulse Ox 09/19/22 08:00 98.2 F 93 18 106/77 97 09/19/22 04:00 97.7 F 86 14 105/71 95 09/19/22 02:00 97.8 F 84 14 106/84 96 09/18/22 21:33 97.4 F L 96 16 124/84 98 09/18/22 20:00 97.4 F L 96 14 124/84 96 09/18/22 18:59 98.2 F 95 16 107/66 98 09/18/22 14:37 96 F L 100 20 111/80 97 Intake and Output 09/18/22 09/19/22 09/19/22 22:59 06:59 14:59 Intake Total 250 1030 75 Output Total 0 300 150 Balance 250 730 -75 Intake: IV 150 550 75 Ampicillin-Sulbactam 3 gm 100 In Sodium Chloride 0.9% 100 ml @ 200 mls/hr IVPB ONCE STA Rx#:[id number] Sodium Chloride 0.9% 1, 150 450 75 000 ml @ 75 mls/hr IV . [id number] [facility] Rx#:[id number] Intake, IV Titration 100 Amount Magnesium Sulfate-D5w Pmx 100 1 gm In Dextrose/Water 1 100ml.bag @ 100 mls/hr IVPB Q1H [facility] Rx#: [id number] Oral 480 Output: Urine 0 300 150 Other: Voiding Method Diaper Diaper Diaper Incontinent Incontinent Incontinent External Catheter # Bowel Movements 1 Weight 61.235 kg -GENERAL: The patient is alert and oriented x2 she knows place and person but she is disoriented about time, not in any acute distress. Well developed, well nourished. HEENT: Pupils are round and equally reacting to light. EOMI. No scleral icterus. No conjunctival pallor. Normocephalic, atraumatic. No pharyngeal erythema. No thyromegaly. CARDIOVASCULAR: S1 and S2 present. No murmurs, rubs, or gallops. PULMONARY: Chest is clear to auscultation, no wheezing or crackles. -ABDOMEN: Soft, nontender, n mildly distended, normoactive bowel sounds. No palpable organomegaly. MUSCULOSKELETAL: No joint swelling or deformity. -EXTREMITIES: No cyanosis, clubbing, or pedal edema. Small puncture ulcer in the left foot with no surrounding cellulitis NEUROLOGICAL: Gross neurological examination did not reveal any focal deficits. SKIN: No rashes. no petechiae. Results CBC & Chem 7: 09/18/22 16:14 09/19/22 05:25 Labs: Abnormal Lab Results - Last 24 Hours (Table) 09/18/22 09/18/22 09/18/22 Range/Units 16:14 16:14 16:14 MCV 100.9 H (80.0-100.0) fL Sodium 118 L* (137-145) mmol/L Chloride 89 L (98-107) mmol/L Carbon Dioxide 21 L (22-30) mmol/L Glucose 124 H (74-99) mg/dL Plasma Lactic Acid Julio Cesar 4.4 H* (0.7-2.0) mmol/L Calcium 8.1 L (8.4-10.2) mg/dL Magnesium 1.3 L (1.6-2.3) mg/dL Total Bilirubin 6.2 H (0.2-1.3) mg/dL AST 64 H (14-36) U/L Alkaline Phosphatase 144 H (38-126) U/L Total Protein 5.7 L (6.3-8.2) g/dL Albumin 2.5 L (3.5-5.0) g/dL TSH (0.465-4.680) mIU/L 09/18/22 09/18/22 09/19/22 Range/Units 16:14 20:30 00:30 MCV (80.0-100.0) fL Sodium 117 L* (137-145) mmol/L Chloride 90 L (98-107) mmol/L Carbon Dioxide 20 L (22-30) mmol/L Glucose 128 H (74-99) mg/dL Plasma Lactic Acid Julio Cesar 2.9 H* (0.7-2.0) mmol/L Calcium 7.8 L (8.4-10.2) mg/dL Magnesium (1.6-2.3) mg/dL Total Bilirubin 5.2 H (0.2-1.3) mg/dL AST 61 H (14-36) U/L Alkaline Phosphatase (38-126) U/L Total Protein 5.3 L (6.3-8.2) g/dL Albumin 2.3 L (3.5-5.0) g/dL TSH 6.000 H (0.465-4.680) mIU/L 09/19/22 09/19/22 09/19/22 Range/Units 00:45 05:25 05:25 MCV (80.0-100.0) fL Sodium 117 L* (137-145) mmol/L Chloride 89 L (98-107) mmol/L Carbon Dioxide (22-30) mmol/L Glucose 108 H (74-99) mg/dL Plasma Lactic Acid Julio Cesar 4.1 H* 2.8 H* (0.7-2.0) mmol/L Calcium 7.7 L (8.4-10.2) mg/dL Magnesium (1.6-2.3) mg/dL Total Bilirubin 4.9 H (0.2-1.3) mg/dL AST 50 H (14-36) U/L Alkaline Phosphatase 127 H (38-126) U/L Total Protein 5.1 L (6.3-8.2) g/dL Albumin 2.2 L (3.5-5.0) g/dL TSH (0.465-4.680) mIU/L 09/19/22 Range/Units 07:57 MCV (80.0-100.0) fL Sodium (137-145) mmol/L Chloride (98-107) mmol/L Carbon Dioxide (22-30) mmol/L Glucose (74-99) mg/dL Plasma Lactic Acid Julio Cesar 2.3 H* (0.7-2.0) mmol/L Calcium (8.4-10.2) mg/dL Magnesium (1.6-2.3) mg/dL Total Bilirubin (0.2-1.3) mg/dL AST (14-36) U/L Alkaline Phosphatase (38-126) U/L Total Protein (6.3-8.2) g/dL Albumin (3.5-5.0) g/dL TSH (0.465-4.680) mIU/L Microbiology - Last 24 Hours (Table) 09/18/22 16:03 Gram Stain - Preliminary Foot - Left Wound Culture - Preliminary Thrombosis Risk Factor Assmnt - Choose All That Apply Any of the Below Risk Factors Present?: No Each Risk Factor Represents 2 Points: Age 61-74 years Thrombosis Risk Factor Assessment Total Risk Factor Score: 2 Thrombosis Risk Factor Assessment Level: Low Risk Assessment and Plan Assessment: recurrent severe hypernatremia, large related to alcohol use disorder De-Compensated alcoholic liver disease with possible cirrhosis with ascites and jaundice Elevated lactic acid Recurrent left foot cellulitis versus hematoma COPD, no acute exacerbation History of GERD Hypertension Hyperlipidemia History of rheumatoid arthritis COPD, GERD/Reflux, Hyperlipidemia, Hypertension, Liver Disease, Rheumatoid Arthritis (RA) Plan: Continue with gentle hydration Once her sodium closely Nephrology consult Critical care team consult while the patient in the ICU Continue with Aldactone, torsemide Continue with home medication of Ultram when necessary Check ultrasound of the abdomen for ascites Continue with Unasyn and follow-up wound culture Labs and medication were reviewed.. Continue same treatment. Continue with symptomatic treatment. Resume home medication. Monitor labs and vitals. DVT a nd GI prophylaxis. Further recommendations as per clinical course of the patient DVT prophylaxis: Subcutaneous heparin GI Prophylaxis: Ppi PT/OT: Pending Prognosis is guarded
--- NOTE | 2022-09-19 10:58 | US ---
EXAMINATION TYPE: US abdomen limited DATE OF EXAM: 09/19/2022 COMPARISON: Prior US, prior paracentesis CLINICAL HISTORY: ascites. Ascites. Ascites visualized within all four quadrants of the abdomen. IMPRESSION: Four-quadrant ascites
--- NOTE | 2022-09-19 11:20 | P.NPCON ---
History of Present Illness - Reason for Consult hyponatremia - History of Present Illness Patient is a 71-year-old female with history of chronic liver disease associated with EtOH abuse. Patient also has a previous history of hyponatremia during her last admission in May 2022. There is a chronic wound on the left foot. Patient is admitted to the hospital with complaints of increased weakness, a bdominal pain and shortness of breath. She is noted to have a serum sodium of 118. Systolic blood pressure around 10 1 mmHg systolic. Patient has been started on IV fluids however her sodium has not improved and remains at 117. No complaints of diarrhea nausea or vomiting. Patient denies any new medications that was started recently. She is maintained on Demadex Aldactone and lisinopril at home prior to admission. Good urine output Review of Systems As per HPI Past Medical History Past Medical History: COPD, GERD/Reflux, Hyperlipidemia, Hypertension, Liver Disease, Rheumatoid Arthritis (RA) Additional Past Medical History / Comment(s): Pancreatitis History of Any Multi-Drug Resistant Organisms: None Reported Past Surgical History: Hysterectomy, Tubal Ligation Additional Past Surgical History / Comment(s): One ovary removed, stomach muscles repaired Past Anesthesia/Blood Transfusion Reactions: No Reported Reaction Smoking Status: Former smoker - Past Family History Father Family Medical History: Cancer Additional Family Medical History / Comment(s): Throat cancer and . Mother Additional Family Medical History / Comment(s): Brain aneurysm and . Son(s) History Unknown: Yes Family Medical History: Hypertension Additional Family Medical History / Comment(s): Oldest son has HTN. Medications and Allergies Home Medications Medication Instructions Recorded Confirmed Type Bypro-3 Fatty Acids/Fish Oil [Fish 3 cap PO DAILY 06/10/19 09/18/22 History Oil 1,000 mg Softgel] Folic Acid 1 mg PO DAILY tab 07/16/22 09/18/22 Rx Spironolactone [Aldactone] 25 mg PO DAILY tab 07/16/22 09/18/22 Rx Torsemide [Demadex] 20 mg PO DAILY tab 07/16/22 09/18/22 Rx Cyanocobalamin (Vitamin B-12) 1,000 mcg PO DAILY 08/30/22 09/18/22 History [Vitamin B-12] Lactulose [Cephulac] 20 gm PO DAILY PRN 08/30/22 09/18/22 History Mag Hydrox/Aluminum Hyd/Simeth 10 - 20 ml PO QID PRN 08/30/22 09/18/22 History [Mylanta Maximum Strength Liq] Magnesium Hydroxide [Milk of 2,400 mg PO Q3D 08/30/22 09/18/22 History Magnesia] Metoclopramide [Reglan] 5 mg PO AC-TID 08/30/22 09/18/22 History Midodrine HCl [ProAmatine] 10 mg PO TID 08/30/22 09/18/22 History Milk Thistle 150 mg PO DAILY 08/30/22 09/18/22 History Pantoprazole [Protonix] 40 mg PO DAILY 08/30/22 09/18/22 History Potassium Chloride ER [K-Dur 20] 20 meq PO DAILY 08/30/22 09/18/22 History Simvastatin 40 mg PO HS 08/30/22 09/18/22 History lisinopriL [Prinivil] 20 mg PO DAILY 08/30/22 09/18/22 History traMADol HCl [Ultram] 50 mg PO Q8H PRN 08/30/22 09/18/22 History Multivitamins, Thera [Multivitamin 1 tab PO DAILY 09/18/22 09/18/22 History (formulary)] Allergies Allergy/AdvReac Type Severity Reaction Status Date / Time No Known Allergies Allergy Verified 09/18/22 16:44 Physical Exam Vitals: Vital Signs Temp Pulse Pulse Resp BP BP Pulse Ox 09/19/22 08:00 98.2 F 93 18 106/77 97 09/19/22 04:00 97.7 F 86 14 105/71 95 09/19/22 02:00 97.8 F 84 14 106/84 96 09/18/22 21:33 97.4 F L 96 16 124/84 98 09/18/22 20:00 97.4 F L 96 14 124/84 96 09/18/22 18:59 98.2 F 95 16 107/66 98 09/18/22 14:37 96 F L 100 20 111/80 97 Intake and Output 09/18/22 09/19/22 09/19/22 22:59 06:59 14:59 Intake Total 250 1030 75 Output Total 0 300 150 Balance 250 730 -75 Intake: IV 150 550 75 Ampicillin-Sulbactam 3 gm 100 In Sodium Chloride 0.9% 100 ml @ 200 mls/hr IVPB ONCE [facility] Rx#:[id number] Sodium Chloride 0.9% 1, 150 450 75 000 ml @ 75 mls/hr IV . [id number] [facility] Rx#:[id number] Intake, IV Titration 100 Amount Magnesium Sulfate-D5w Pmx 100 1 gm In Dextrose/Water 1 100ml.bag @ 100 mls/hr IVPB Q1H [facility] Rx#: [id number] Oral 480 Output: Urine 0 300 150 Other: Voiding Method Diaper Diaper Diaper Incontinent Incontinent Incontinent External Catheter # Bowel Movements 1 Weight 61.235 kg Patient is awake, comfortable, in no acute distress Examination of the heart S1 and S2 Examination of the lungs decreased breath sounds at the bases Abdomen is soft distended nontender Examination lower extremities shows 1+ edema and left foot is currently wrapped [employer] exam grossly intact Results - Lab Results Most recent lab results Calcium 7.7 mg/dL (8.4-10.2) L 09/19/22 05:25 Magnesium 1.9 mg/dL (1.6-2.3) 09/19/22 05:25 09/18/22 16:14 09/19/22 05:25 Assessment and Plan Assessment: 1. Hyponatremia associated with underlying liver cirrhosis. Status post normal saline with no significant improvement in serum sodium. Urine osmolality was 291. Patient had received Samsca during her last hospitalization. Blood pressure is slightly on the lower side. 2. Left foot wound maintained on antibiotics 3. Alcoholic chronic liver disease 4. History of rheumatoid arthritis 5. Lactic acidosis associated with chronic alcoholism with decreased utilization of Lactaid due to hepatic dysfunction. Plan: Sodium chloride tab 1 Repeat sodium in about 4 hours May continue with the normal saline for now Continue antibiotics for left foot wound We will give Samsca if the serum sodium does not improve Patient is encouraged to increase oral intake of protein.
--- NOTE | 2022-09-19 14:17 | P.CNPUL ---
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 Patient is familiar to our service, she had been frequently admitted to the hospital for the last few months, and she normally comes in with worsening abdominal ascites and increased abdominal girth associated with some shortness of breath. Patient was admitted yesterday with similar complaints, patient has been noticing increase in the size of her abdomen, and she is retaining fluids. She is also complaining of slight shortness of breath, but no cough no wheezing no chest pain no fever no chills no hemoptysis no melena no hematemesis, no nausea or vomiting. Patient is being treated on outpatient basis for a chronic left foot ulcer with ongoing discharge from the ulcer. She was last discharged from the hospital on 07/16 after she was in the hospital for almost 3 weeks, treated at the time for alcohol liver hepatitis and left foot infection underwent paracentesis 2 this time the patient was noted to be mostly hyponatremic with significant ascites. Patient was admitted to the ICU, and this consult was initiated. Patient was seen by nephrology on consultation, did not feel the need for hypertonic saline, she is now on normal saline, and repeat sodium is pending patient is receiving empirically antibiotics in the form of Unasyn for her ascites although clinically I don't believe the patient has spontaneous bacterial peritonitis at this point but nonetheless we'll continue the antibiotics for now. Ultrasound of the abdomen showed ascites/large ascites. Nephrology felt that her hyponatremia is associated with her liver cirrhosis, patient had no previous improvement with saline, and she received Samsca during her last hospitalization. Patient is also receiving antibiotics for her left foot wound infection Review of Systems constitutional: Weakness fatigue, no fever no chills Gastrointestinal: abdominal distention , as noted in HPI. GENITOURINARY: no dysuria frequency or urgency MUSCULOSKELETAL:negative. SKIN: No rashes. negative ENDOCRINE: negative PSYCHIATRIC: negative NEUROLOGY: negative ENT:negative CONSTITUTIONAL: generalized weakness and fatigue. Past Medical History Past Medical History: COPD, GERD/Reflux, Hyperlipidemia, Hypertension, Liver Disease, Rheumatoid Arthritis (RA) Additional Past Medical History / Comment(s): Pancreatitis History of Any Multi-Drug Resistant Organisms: None Reported Past Surgical History: Hysterectomy, Tubal Ligation Additional Past Surgical History / Comment(s): One ovary removed, stomach muscles repaired Past Anesthesia/Blood Transfusion Reactions: No Reported Reaction Smoking Status: Former smoker - Past Family History Father Family Medical History: Cancer Additional Family Medical History / Comment(s): Throat cancer and . Mother Additional Family Medical History / Comment(s): Brain aneurysm and . Son(s) History Unknown: Yes Family Medical History: Hypertension Additional Family Medical History / Comment(s): Oldest son has HTN. Medications and Allergies Home Medications Medication Instructions Recorded Confirmed Type [place]-3 Fatty Acids/Fish Oil [Fish 3 cap PO DAILY 06/10/19 09/18/22 History Oil 1,000 mg Softgel] Folic Acid 1 mg PO DAILY tab 07/16/22 09/18/22 Rx Spironolactone [Aldactone] 25 mg PO DAILY tab 07/16/22 09/18/22 Rx Torsemide [Demadex] 20 mg PO DAILY tab 07/16/22 09/18/22 Rx Cyanocobalamin (Vitamin B-12) 1,000 mcg PO DAILY 08/30/22 09/18/22 History [Vitamin B-12] Lactulose [Cephulac] 20 gm PO DAILY PRN 08/30/22 09/18/22 History Mag Hydrox/Aluminum Hyd/Simeth 10 - 20 ml PO QID PRN 08/30/22 09/18/22 History [Mylanta Maximum Strength Liq] Magnesium Hydroxide [Milk of 2,400 mg PO Q3D 08/30/22 09/18/22 History Magnesia] Metoclopramide [Reglan] 5 mg PO AC-TID 08/30/22 09/18/22 History Midodrine HCl [ProAmatine] 10 mg PO TID 08/30/22 09/18/22 History Milk Thistle 150 mg PO DAILY 08/30/22 09/18/22 History Pantoprazole [Protonix] 40 mg PO DAILY 08/30/22 09/18/22 History Potassium Chloride ER [K-Dur 20] 20 meq PO DAILY 08/30/22 09/18/22 History Simvastatin 40 mg PO HS 08/30/22 09/18/22 History lisinopriL [Prinivil] 20 mg PO DAILY 08/30/22 09/18/22 History traMADol HCl [Ultram] 50 mg PO Q8H PRN 08/30/22 09/18/22 History Multivitamins, Thera [Multivitamin 1 tab PO DAILY 09/18/22 09/18/22 History (formulary)] Allergies Allergy/AdvReac Type Severity Reaction Status Date / Time No Known Allergies Allergy Verified 09/18/22 16:44 Physical Exam Vitals: Vital Signs Temp Pulse Pulse Resp BP BP Pulse Ox 09/19/22 13:00 99 13 113/82 95 09/19/22 12:00 97.8 F 106 H 20 116/81 91 L 09/19/22 11:00 89 12 121/87 97 09/19/22 10:00 85 98 09/19/22 09:00 85 14 106/77 09/19/22 08:00 98.2 F 87 93 18 106/77 95 09/19/22 07:00 95 13 95 09/19/22 06:00 85 14 101/76 93 L 09/19/22 05:00 85 9 L 105/71 97 09/19/22 04:00 97.7 F 89 86 16 105/71 105/71 96 09/19/22 03:00 84 15 106/84 97 09/19/22 02:00 97.8 F 85 84 15 106/84 106/84 96 09/19/22 01:00 87 14 106/84 96 09/19/22 00:00 89 15 119/76 95 09/18/22 23:00 91 15 116/75 96 09/18/22 22:00 92 12 116/80 97 09/18/22 21:33 97.4 F L 96 16 124/84 98 09/18/22 21:00 92 13 124/84 97 09/18/22 20:12 90 13 124/84 09/18/22 20:00 97.4 F L 96 14 124/84 96 09/18/22 18:59 98.2 F 95 16 107/66 98 09/18/22 14:37 96 F L 100 20 111/80 97 Intake and Output 09/18/22 09/19/22 09/19/22 22:59 06:59 14:59 Intake Total 250 1030 150 Output Total 0 300 300 Balance 250 730 -150 Intake: IV 150 550 150 Ampicillin-Sulbactam 3 gm 100 In Sodium Chloride 0.9% 100 ml @ 200 mls/hr IVPB ONCE [facility] Rx#:[id number] Sodium Chloride 0.9% 1, 150 450 150 000 ml @ 75 mls/hr IV . [id number] [facility] Rx#:[id number] Intake, IV Titration 100 Amount Magnesium Sulfate-D5w Pmx 100 1 gm In Dextrose/Water 1 100ml.bag @ 100 mls/hr IVPB Q1H [facility] Rx#: [id number] Oral 480 Output: Urine 0 300 300 Other: Voiding Method Diaper Diaper Diaper Incontinent Incontinent Incontinent External Catheter # Bowel Movements 1 Weight 61.235 kg General appearance: revealed 71-year-old female in no distress.on room air. HET: Head is normocephalic and atraumatic. Conjunctiva pink. Sclera anicteric. Neck: Supple without lymphadenopathy. Trachea midline. Heart:normal S1 and S2, no S3 gallop. Lungs: symmetrical chest expansion, clear throughout no crackles or rhonchi or wheezes Abdomen: Positive ascites obese, soft,distended, no rebound no guarding. Skin: No rashes. Extremities: no clubbing edema or cyanosis. Neurological: alert oriented 3 focal deficits Results - Laboratory Findings CBC and BMP: 09/18/22 16:14 09/19/22 05:25 Abnormal lab findings: Abnormal Labs 09/18/22 09/18/22 09/18/22 16:14 16:14 16:14 MCV 100.9 H Sodium 118 L* Chloride 89 L Carbon Dioxide 21 L Glucose 124 H Plasma Lactic Acid Julio Cesar 4.4 H* Calcium 8.1 L Magnesium 1.3 L Total Bilirubin 6.2 H AST 64 H Alkaline Phosphatase 144 H Total Protein 5.7 L Albumin 2.5 L TSH Ur Random Sodium 09/18/22 09/18/22 09/18/22 16:14 20:30 23:40 MCV Sodium Chloride Carbon Dioxide Glucose Plasma Lactic Acid Julio Cesar 2.9 H* Calcium Magnesium Total Bilirubin AST Alkaline Phosphatase Total Protein Albumin TSH 6.000 H Ur Random Sodium <20 L 09/19/22 09/19/22 09/19/22 00:30 00:45 05:25 MCV Sodium 117 L* 117 L* Chloride 90 L 89 L Carbon Dioxide 20 L Glucose 128 H 108 H Plasma Lactic Acid Julio Cesar 4.1 H* Calcium 7.8 L 7.7 L Magnesium Total Bilirubin 5.2 H 4.9 H AST 61 H 50 H Alkaline Phosphatase 127 H Total Protein 5.3 L 5.1 L Albumin 2.3 L 2.2 L TSH Ur Random Sodium 09/19/22 09/19/22 05:25 07:57 MCV Sodium Chloride Carbon Dioxide Glucose Plasma Lactic Acid Julio Cesar 2.8 H* 2.3 H* Calcium Magnesium Total Bilirubin AST Alkaline Phosphatase Total Protein Albumin TSH Ur Random Sodium - Diagnostic Findings Additional studies: Ultrasound of the abdomen and pelvis showed evidence of significant ascites Assessment and Plan Assessment: Impression: Hyponatremia secondary to excessive alcohol use, poor salt intake, and excessive fluid intake. History of alcoholism Ascites secondary to liver cirrhosis, recurrent Benign essential hypertension History of rheumatoid arthritis Lactic acidosis secondary to chronic alcoholism and liver dysfunction. Recommendation: Continue to monitor the patient in the ICU. Continue management of hyponatremia as per nephrology on the case. We'll recommend paracentesis and fluid to be sent for cultures. Continue antibiotics empirically continue diuretics Resume home meds [facility] protocol GI and DVT prophylaxis We will continue to follow Time with Patient: Greater than 30
[2022-09-19 15:19] LABS: Prothrombin Time 19.4 sec (9.0-12.0)
[2022-09-19] MEDS ORDERED: VANCOMYCIN IV PER PHARMACY 1 EACH MISC MISCELLANE PRN (16:39)
[2022-09-19] MEDS ORDERED: VANCOMYCIN 1,250 MG in SODIUM CHLORIDE 0.9% 250 ML IVPB ONE (17:30)
[2022-09-19] MEDS: traMADol 50 MG TAB PO PRN (19:40)
[2022-09-19] MEDS: HEPARIN SODIUM,PORCINE/PF 5,000 UNIT/0.5 ML SYRINGE SQ SCH (20:03)
[2022-09-20] MEDS: AMPICILLIN-SULBACTAM 3 GM in SODIUM CHLORIDE 0.9% 100 ML IVPB SCH ×4 (01:34→19:32)
[2022-09-20 06:29] LABS: Basophils % (A) 1 %; Eosinophils # (A) 0.1 k/uL (0-0.7); Eosinophils % (A) 2 %; Lymphocytes % (A) 15 %; MCH 34.7 pg (25.0-35.0); MCHC 34.5 g/dL (31.0-37.0); MCV 100.6 fL (80.0-100.0); Macrocytosis Slight; Mean Platelet Volume 8.6; Monocytes # (A) 0.5 k/uL (0-1.0); Monocytes % (A) 8 %; Neutrophils # (A) 4.4 k/uL (1.3-7.7); Neutrophils % (A) 69 %; Platelet Count 116 k/uL (150-450); RBC 3.18 m/uL (3.80-5.40); RDW 15.4 % (11.5-15.5); WBC 6.3 k/uL (3.8-10.6)
[2022-09-20] MEDS: VANCOMYCIN 1,000 MG in SODIUM CHLORIDE 0.9% 250 ML IVPB SCH ×2 (06:38→20:23)
[2022-09-20 06:43] LABS: Prothrombin Time 19.8 sec (9.0-12.0)
[2022-09-20 07:00] LABS: ALT 21 U/L (4-34); AST 43 U/L (14-36); African American GFR (CKD) >90 (>60 ml/min/1.73 sqM); Alkaline Phosphatase 107 U/L (38-126); Anion Gap 6 mmol/L; Blood Urea Nitrogen 11 mg/dL (7-17); Calcium 7.4 mg/dL (8.4-10.2); Carbon Dioxide 19 mmol/L (22-30); Chloride 93 mmol/L (98-107); Glucose 108 mg/dL (74-99); Non-African American GFR(CKD) 88 (>60 ml/min/1.73 sqM); Total Bilirubin 4.4 mg/dL (0.2-1.3); Total Protein 4.8 g/dL (6.3-8.2)
[2022-09-20] MEDS ORDERED: SODIUM CHLORIDE TAB 1 GM TAB PO STA ×2 (07:03→19:26)
[2022-09-20] MEDS: HEPARIN SODIUM,PORCINE/PF 5,000 UNIT/0.5 ML SYRINGE SQ SCH ×2 (07:08→20:23)
[2022-09-20] MEDS: PANTOPRAZOLE 40 MG TABLET PO SCH (07:08)
[2022-09-20 07:36] LABS: Sodium 118 mmol/L (137-145)
--- NOTE | 2022-09-20 07:52 | P.PN ---
Subjective Patient is seen for follow-up for hyponatremia. It was hypovolemic and patient was maintained on normal saline. Serum sodium had improved and saline was discontinued yesterday as patient has underlying chronic liver disease portal hypertension and ascites. This morning serum sodium dropped to 118. Patient did receive a dose of sodium chloride tab yesterday. This will be repeated today. Urine osmolality was 291 with urine sodium less than 20. Blood pressure has been on the lower side with systolic 101-1 10 mmHg. No significant complaints today. Objective - Vital Signs Vital signs: Vital Signs Temp 98.1 F 09/20/22 04:00 Pulse 93 09/20/22 07:00 Resp 17 09/20/22 07:00 BP 105/64 09/20/22 07:00 Pulse Ox 95 09/20/22 07:00 FiO2 Intake & Output 09/19/22 09/20/22 09/20/22 18:59 06:59 18:59 Intake Total 620 305 15 Output Total 550 155 20 Balance 70 150 -5 Weight 71.5 kg Intake: IV 495 305 15 Sodium Chloride 0.9% 1, 495 305 15 000 ml @ 75 mls/hr IV . [id number] [facility] Rx#:[id number] Intake, IV Titration 125 Amount Ampicillin-Sulbactam 3 gm 100 In Sodium Chloride 0.9% 100 ml @ 200 mls/hr IVPB Q6HR [facility] Rx#:[id number] Vancomycin 1,000 mg In 25 Sodium Chloride 0.9% 250 ml @ 125 mls/hr IVPB Q12H [facility] Rx#:[id number] Output: Urine 550 155 20 Uretheral ([place]) 60 Other: Voiding Method Diaper Indwelling Catheter Incontinent External Catheter - Exam Awake, comfortable, no acute distress Examination of the heart S1 and S2 Examination lungs decreased breath sounds at the bases Abdomen is soft nontender Examination lower extremities shows trace edema bilaterally [employer] exam grossly intact - Labs CBC & Chem 7: 09/20/22 06:00 09/20/22 06:00 Labs: Abnormal Lab Results - Last 24 Hours (Table) 09/18/22 09/19/22 09/19/22 Range/Units 23:40 07:57 08:35 RBC (3.80-5.40) m/uL Hgb (11.4-16.0) gm/dL Hct (34.0-46.0) % MCV (80.0-100.0) fL Plt Count (150-450) k/uL PT (9.0-12.0) sec INR (<1.2) Sodium (137-145) mmol/L Chloride (98-107) mmol/L Carbon Dioxide (22-30) mmol/L Glucose (74-99) mg/dL Plasma Lactic Acid Julio Cesar 2.3 H* (0.7-2.0) mmol/L Calcium (8.4-10.2) mg/dL Total Bilirubin (0.2-1.3) mg/dL AST (14-36) U/L Total Protein (6.3-8.2) g/dL Albumin (3.5-5.0) g/dL Ur Random Sodium <20 L <20 L (40-220) mmol/L 09/19/22 09/19/22 09/19/22 Range/Units 14:33 14:33 14:33 RBC (3.80-5.40) m/uL Hgb (11.4-16.0) gm/dL Hct (34.0-46.0) % MCV (80.0-100.0) fL Plt Count (150-450) k/uL PT 19.4 H (9.0-12.0) sec INR 2.0 H (<1.2) Sodium 121 L (137-145) mmol/L Chloride (98-107) mmol/L Carbon Dioxide (22-30) mmol/L Glucose (74-99) mg/dL Plasma Lactic Acid Julio Cesar 4.4 H* (0.7-2.0) mmol/L Calcium (8.4-10.2) mg/dL Total Bilirubin (0.2-1.3) mg/dL AST (14-36) U/L Total Protein (6.3-8.2) g/dL Albumin (3.5-5.0) g/dL Ur Random Sodium (40-220) mmol/L 09/19/22 09/20/22 09/20/22 Range/Units 20:07 06:00 06:00 RBC 3.18 L (3.80-5.40) m/uL Hgb 11.0 L (11.4-16.0) gm/dL Hct 32.0 L (34.0-46.0) % MCV 100.6 H (80.0-100.0) fL Plt Count 116 L (150-450) k/uL PT 19.8 H (9.0-12.0) sec INR 2.0 H (<1.2) Sodium 123 L (137-145) mmol/L Chloride (98-107) mmol/L Carbon Dioxide (22-30) mmol/L Glucose (74-99) mg/dL Plasma Lactic Acid Julio Cesar (0.7-2.0) mmol/L Calcium (8.4-10.2) mg/dL Total Bilirubin (0.2-1.3) mg/dL AST (14-36) U/L Total Protein (6.3-8.2) g/dL Albumin (3.5-5.0) g/dL Ur Random Sodium (40-220) mmol/L 09/20/22 Range/Units 06:00 RBC (3.80-5.40) m/uL Hgb (11.4-16.0) gm/dL Hct (34.0-46.0) % MCV (80.0-100.0) fL Plt Count (150-450) k/uL PT (9.0-12.0) sec INR (<1.2) Sodium 118 L* (137-145) mmol/L Chloride 93 L (98-107) mmol/L Carbon Dioxide 19 L (22-30) mmol/L Glucose 108 H (74-99) mg/dL Plasma Lactic Acid Julio Cesar (0.7-2.0) mmol/L Calcium 7.4 L (8.4-10.2) mg/dL Total Bilirubin 4.4 H (0.2-1.3) mg/dL AST 43 H (14-36) U/L Total Protein 4.8 L (6.3-8.2) g/dL Albumin 2.0 L (3.5-5.0) g/dL Ur Random Sodium (40-220) mmol/L Microbiology - Last 24 Hours (Table) 09/18/22 16:05 Blood Culture Gram Stain - Preliminary Blood 09/18/22 16:05 Blood Culture - Final Blood 09/18/22 16:03 Gram Stain - Preliminary Foot - Left Wound Culture - Preliminary Presumptive Staph aureus 09/18/22 16:20 Blood Culture Gram Stain - Preliminary Blood Blood Culture - Preliminary Coagulase Negative Staph 09/18/22 16:20 Blood Culture - Final Blood Assessment and Plan Assessment: 1. Hyponatremia associated with underlying liver cirrhosis. Hypovolemic initially. Status post normal saline with no significant improvement in serum sodium. Urine osmolality was 291. Patient had received Samsca during her last hospitalization. Blood pressure is slightly on the lower side. Status post sodium chloride tabs yesterday and sodium had improved to 123 however this morning it dropped back down to 118. I will repeat sodium chloride tabs and if serum sodium remains low we will give her a dose of Samsca. 2. Left foot wound maintained on antibiotics 3. Alcoholic chronic liver disease 4. History of rheumatoid arthritis 5. Lactic acidosis associated with chronic alcoholism with decreased utilization of Lactaid due to hepatic dysfunction. Plan: Repeat sodium chloride tabs Repeat sodium in 4-5 hours and Samsca 1 if serum sodium does not improve. Continue off of normal saline for now
--- NOTE | 2022-09-20 10:10 | XR ---
EXAMINATION TYPE: XR chest 1V portable DATE OF EXAM: 09/20/2022 COMPARISON: 07/11/2022 HISTORY: Shortness of breath TECHNIQUE: Single frontal view of the chest is obtained. FINDINGS: Size normal. There is left basilar consolidation and pleural thickening or tiny effusion. Underlying COPD. Diffuse osteopenia throughout the shoulders. Biapical pleural thickening. Scoliosis of the spine IMPRESSION: 1. Left basilar subsegmental atelectasis or infiltrate with tiny effusion. 2. COPD.
[2022-09-20] MEDS: MULTIVITAMINS, THERA 1 EACH TAB PO SCH (10:34)
[2022-09-20] MEDS: CYANOCOBALAMIN 500 MCG TAB PO SCH (10:34)
[2022-09-20] MEDS: FOLIC ACID 1 MG TAB PO SCH (10:34)
[2022-09-20] MEDS: SPIRONOLACTONE 25 MG TAB PO SCH (10:34)
[2022-09-20] MEDS: TORSEMIDE 20 MG TAB PO SCH (10:34)
[2022-09-20] MEDS: lisinopriL 20 MG TAB PO SCH (10:34)
--- NOTE | 2022-09-20 11:44 | P.PN ---
Subjective Progress Note Date: 09/20/22 Principal diagnosis: worsening ascites This is a 71-year-old female with history of multiple medical problems, however she mostly has severe alcohol related liver disease and liver cirrhosis. Patient is familiar to our service, she had been frequently admitted to the hospital for the last few months, and she normally comes in with worsening abdominal ascites and increased abdominal girth associated with some shortness of breath. Patient was admitted yesterday with similar complaints, patient has been noticing increase in the size of her abdomen, and she is retaining fluids. She is also complaining of slight shortness of breath, but no cough no wheezing no chest pain no fever no chills no hemoptysis no melena no hematemesis, no nausea or vomiting. Patient is being treated on outpatient basis for a chronic left foot ulcer with ongoing discharge from the ulcer. She was last discharged from the hospital on 07/16 after she was in the hospital for almost 3 weeks, tr eated at the time for alcohol liver hepatitis and left foot infection underwent paracentesis 2 this time the patient was noted to be mostly hyponatremic with significant ascites. Patient was admitted to the ICU, and this consult was initiated. Patient was seen by nephrology on consultation, did not feel the need for hypertonic saline, she is now on normal saline, and repeat sodium is pending patient is receiving empirically antibiotics in the form of Unasyn for her ascites although clinically I don't believe the patient has spontaneous bacterial peritonitis at this point but nonetheless we'll continue the antibiotics for now. Ultrasound of the abdomen showed ascites/large ascites. Nephrology felt that her hyponatremia is associated with her liver cirrhosis, patient had no previous improvement with saline, and she received Samsca during her last hospitalization. Patient is also receiving antibiotics for her left foot wound infection Reevaluated today on 09/20/22, patient remains in the ICU, she is doing fairly well, her sodium is back down to 118 from 123 yesterday, patient is being followed by nephrology, and she is now on sodium chloride tablets. She is scheduled to undergo paracentesis today at 9 AM, and she will receive at least 1 unit of fresh frozen plasma before her procedure since her INR is elevated.WBC count today 6.3 hemoglobin is 11, sodium is 118 INR is 2.0, chest x-ray showed left basilar subsegmental atelectasis, small tiny pleural effusion, and findings of COPD. Objective - Vital Signs Vital signs: Vital Signs Temp 98.3 F 09/20/22 10:40 Pulse 85 09/20/22 11:00 Resp 15 09/20/22 11:00 BP 102/70 09/20/22 11:00 Pulse Ox 95 09/20/22 11:00 FiO2 Intake & Output 09/19/22 09/20/22 09/20/22 18:59 06:59 18:59 Intake Total 620 305 511 Output Total 720 990 8760 Balance 70 150 -5679 Weight 71.5 kg Intake: IV 495 305 185 Sodium Chloride 0.9% 1, 495 305 60 000 ml @ 75 mls/hr IV . [id number] [facility] Rx#:[id number] Vancomycin 1,000 mg In 125 Sodium Chloride 0.9% 250 ml @ 125 mls/hr IVPB Q12H [facility] Rx#:[id number] Intake, IV Titration 125 Amount Ampicillin-Sulbactam 3 gm 100 In Sodium Chloride 0.9% 100 ml @ 200 mls/hr IVPB Q6HR [facility] Rx#:[id number] Vancomycin 1,000 mg In 25 Sodium Chloride 0.9% 250 ml @ 125 mls/hr IVPB Q12H [facility] Rx#:[id number] Blood Product 326 Ffp 24 Cpd Unit 326 [id number] Output: Urine 550 155 90 Uretheral ([place]) 60 Other 6100 Other: Voiding Method Diaper Indwelling Catheter Indwelling Catheter Incontinent External Catheter - Exam General appearance: revealed 71-year-old female in no distress.on room air. HET: Head is normocephalic and atraumatic. Conjunctiva pink. Sclera anicteric. Neck: Supple without lymphadenopathy. Trachea midline. Heart:normal S1 and S2, no S3 gallop. Lungs: symmetrical chest expansion, clear throughout no crackles or rhonchi or wheezes Abdomen: Positive ascites obese, soft,distended, no rebound no guarding. Skin: No rashes. Extremities: no clubbing edema or cyanosis. Neurological: alert oriented 3 focal deficits - Labs CBC & Chem 7: 09/20/22 06:00 09/20/22 06:00 Labs: Abnormal Lab Results - Last 24 Hours (Table) 09/18/22 09/19/22 09/19/22 Range/Units 23:40 08:35 14:33 RBC (3.80-5.40) m/uL Hgb (11.4-16.0) gm/dL Hct (34.0-46.0) % MCV (80.0-100.0) fL Plt Count (150-450) k/uL PT (9.0-12.0) sec INR (<1.2) Sodium 121 L (137-145) mmol/L Chloride (98-107) mmol/L Carbon Dioxide (22-30) mmol/L Glucose (74-99) mg/dL Plasma Lactic Acid Julio Cesar (0.7-2.0) mmol/L Calcium (8.4-10.2) mg/dL Total Bilirubin (0.2-1.3) mg/dL AST (14-36) U/L Total Protein (6.3-8.2) g/dL Albumin (3.5-5.0) g/dL Ur Random Sodium <20 L <20 L (40-220) mmol/L 09/19/22 09/19/22 09/19/22 Range/Units 14:33 14:33 20:07 RBC (3.80-5.40) m/uL Hgb (11.4-16.0) gm/dL Hct (34.0-46.0) % MCV (80.0-100.0) fL Plt Count (150-450) k/uL PT 19.4 H (9.0-12.0) sec INR 2.0 H (<1.2) Sodium 123 L (137-145) mmol/L Chloride (98-107) mmol/L Carbon Dioxide (22-30) mmol/L Glucose (74-99) mg/dL Plasma Lactic Acid Julio Cesar 4.4 H* (0.7-2.0) mmol/L Calcium (8.4-10.2) mg/dL Total Bilirubin (0.2-1.3) mg/dL AST (14-36) U/L Total Protein (6.3-8.2) g/dL Albumin (3.5-5.0) g/dL Ur Random Sodium (40-220) mmol/L 09/20/22 09/20/22 09/20/22 Range/Units 06:00 06:00 06:00 RBC 3.18 L (3.80-5.40) m/uL Hgb 11.0 L (11.4-16.0) gm/dL Hct 32.0 L (34.0-46.0) % MCV 100.6 H (80.0-100.0) fL Plt Count 116 L (150-450) k/uL PT 19.8 H (9.0-12.0) sec INR 2.0 H (<1.2) Sodium 118 L* (137-145) mmol/L Chloride 93 L (98-107) mmol/L Carbon Dioxide 19 L (22-30) mmol/L Glucose 108 H (74-99) mg/dL Plasma Lactic Acid Julio Cesar (0.7-2.0) mmol/L Calcium 7.4 L (8.4-10.2) mg/dL Total Bilirubin 4.4 H (0.2-1.3) mg/dL AST 43 H (14-36) U/L Total Protein 4.8 L (6.3-8.2) g/dL Albumin 2.0 L (3.5-5.0) g/dL Ur Random Sodium (40-220) mmol/L Microbiology - Last 24 Hours (Table) 09/18/22 16:20 Blood Culture Gram Stain - Final Blood Blood Culture - Final Coagulase Negative Staph 09/18/22 16:05 Blood Culture Gram Stain - Preliminary Blood 09/18/22 16:05 Blood Culture - Final Blood 09/18/22 16:03 Gram Stain - Preliminary Foot - Left Wound Culture - Preliminary Presumptive Staph aureus 09/18/22 16:20 Blood Culture - Final Blood Assessment and Plan Assessment: Impression: Hyponatremia secondary to excessive alcohol use, poor salt intake, and excessive fluid intake. History of alcoholism Ascites secondary to liver cirrhosis, recurrent Benign essential hypertension History of rheumatoid arthritis Lactic acidosis secondary to chronic alcoholism and liver dysfunction. Recommendation: could consider transferring the patient out of the ICU today to a regular hi dical floor. Continue management of hyponatremia as per nephrology on the case. paracentesis is scheduled to be done today. Continue antibiotics empirically , however if cultures are negative on the a scites fluid, then the antibiotic could be discontinued continue CIWA protocol GI and DVT prophylaxis We will continue to follow Time with Patient: Less than 30
[2022-09-20] MEDS: ALBUMIN HUMAN 25% 50 ML in EMPTY BAG 1 BAG IVPB SCH ×2 (12:09→13:20)
[2022-09-20] MEDS: NOREPINEPHRINE 4 MG in SODIUM CHLORIDE 0.9% 250 ML IV SCH (15:00)
[2022-09-20 16:48] LABS: Appearance,BF Clear
--- NOTE | 2022-09-20 20:19 | P.CONS ---
History of Present Illness - Reason for Consult Consult date: 09/20/22 Positive blood culture Requesting physician: Fernando E Sheet - Chief Complaint Abdominal pain and distention x few days - History of Present Illness Patient is a 71 year female with multiple comorbidity patient did have alcohol liver disease/cirrhosis with multiple admission to the hospital for ascites and requiring paracentesis last admission was back in June with the patient did require paracentesis 2 during that admission patient also develop swelling to the left foot area patient did have a CT of the foot that was suggestive mostly hematoma no evidence of any abscess and the patient was sent home on oral Keflex patient now presenting back to the hospital for evaluation of worsening abdominal distention and some discomfort associated with it requir ing the need for paracentesis, patient also have a small wound on the dorsum aspect of the left foot which is draining some serous fluid patient was noticed to have significant hyponatremia requiring admission to the ICU also have elevated lactic acid however the patient did have a normal white count and no fever patient did have blood culture drawn which came back positive with called his negative staph and culture from the left foot is currently growing staph aureus with sensitivities pending patient is on a combination of vancomycin and Unasyn and infectious disease was consulted for further management of antibiotic therapy. on today's evaluation that is 09/20/2022 patient denies having any fever or chills, has been complaining of some shortness of breath but no chest pain occasional cough no sputum production patient was combative of significant abdominal distention and discomfort more of a dull aching pain 6-7 out of 10 however the pain has improved after the patient did have 6.1 L of ascitic fluid removed she did complain of pain to the left foot more of a dull aching to 3 out of 10 and did have some serous drainage no significant redness or foul-smelling, patient did have x-ray of the left foot which did show some soft tissue swelling no bony destruction Review of Systems Positive point has been mentioned in the HPI rest of the systems are negative Past Medical History Past Medical History: COPD, GERD/Reflux, Hyperlipidemia, Hypertension, Liver Disease, Rheumatoid Arthritis (RA) Additional Past Medical History / Comment(s): Pancreatitis History of Any Multi-Drug Resistant Organisms: None Reported Past Surgical History: Hysterectomy, Tubal Ligation Additional Past Surgical History / Comment(s): One ovary removed, stomach muscles repaired Past Anesthesia/Blood Transfusion Reactions: No Reported Reaction Smoking Status: Former smoker - Past Family History Father Family Medical History: Cancer Additional Family Medical History / Comment(s): Throat cancer and . Mother Additional Family Medical History / Comment(s): Brain aneurysm and . Son(s) History Unknown: Yes Family Medical History: Hypertension Additional Family Medical History / Comment(s): Oldest son has HTN. Medications and Allergies Home Medications Medication Instructions Recorded Confirmed Type [place]-3 Fatty Acids/Fish Oil [Fish 3 cap PO DAILY 06/10/19 09/18/22 History Oil 1,000 mg Softgel] Folic Acid 1 mg PO DAILY tab 07/16/22 09/18/22 Rx Spironolactone [Aldactone] 25 mg PO DAILY tab 07/16/22 09/18/22 Rx Torsemide [Demadex] 20 mg PO DAILY tab 07/16/22 09/18/22 Rx Cyanocobalamin (Vitamin B-12) 1,000 mcg PO DAILY 08/30/22 09/18/22 History [Vitamin B-12] Lactulose [Cephulac] 20 gm PO DAILY PRN 08/30/22 09/18/22 History Mag Hydrox/Aluminum Hyd/Simeth 10 - 20 ml PO QID PRN 08/30/22 09/18/22 History [Mylanta Maximum Strength Liq] Magnesium Hydroxide [Milk of 2,400 mg PO Q3D 08/30/22 09/18/22 History Magnesia] Metoclopramide [Reglan] 5 mg PO AC-TID 08/30/22 09/18/22 History Midodrine HCl [ProAmatine] 10 mg PO TID 08/30/22 09/18/22 History Milk Thistle 150 mg PO DAILY 08/30/22 09/18/22 History Pantoprazole [Protonix] 40 mg PO DAILY 08/30/22 09/18/22 History Potassium Chloride ER [K-Dur 20] 20 meq PO DAILY 08/30/22 09/18/22 History Simvastatin 40 mg PO HS 08/30/22 09/18/22 History lisinopriL [Prinivil] 20 mg PO DAILY 08/30/22 09/18/22 History traMADol HCl [Ultram] 50 mg PO Q8H PRN 08/30/22 09/18/22 History Multivitamins, Thera [Multivitamin 1 tab PO DAILY 09/18/22 09/18/22 History (formulary)] Allergies Allergy/AdvReac Type Severity Reaction Status Date / Time No Known Allergies Allergy Verified 09/18/22 16:44 Physical Exam Vitals: Vital Signs Temp Pulse Pulse Resp BP BP Pulse Ox 09/20/22 09:44 87 14 118/56 97 09/20/22 09:35 90 16 113/68 97 09/20/22 09:20 87 16 96/56 97 09/20/22 09:09 87 14 104/72 100 09/20/22 09:02 90 16 98/68 96 09/20/22 08:44 98.9 F 92 16 101/71 95 09/20/22 08:00 98.9 F 89 16 101/69 95 09/20/22 07:00 93 17 105/64 95 09/20/22 06:00 90 14 102/73 95 09/20/22 05:00 89 16 116/81 93 L 09/20/22 04:00 98.1 F 101 H 15 116/81 92 L 09/20/22 03:00 97 16 113/91 94 L 09/20/22 02:00 92 16 92/70 95 09/20/22 01:00 97 18 101/65 96 09/20/22 00:00 92 16 104/74 95 09/19/22 23:00 90 16 119/86 97 09/19/22 22:00 92 21 103/79 95 09/19/22 21:00 92 16 120/63 95 09/19/22 20:00 98 F 94 10 L 115/80 99 09/19/22 19:00 92 17 106/69 95 09/19/22 18:00 88 15 105/81 94 L 09/19/22 17:00 93 14 125/76 97 09/19/22 16:00 97.8 F 90 12 114/77 94 L 09/19/22 15:00 86 16 131/65 94 L 09/19/22 14:00 95 13 122/75 94 L 09/19/22 13:00 99 13 113/82 95 09/19/22 12:00 97.8 F 106 H 20 116/81 91 L Intake and Output 12/21/22 12/22/22 12/22/22 22:59 06:59 14:59 Intake Total 380 245 140 Output Total 305 100 50 Balance 75 145 90 Intake: IV 255 245 140 Sodium Chloride 0.9% 1, 255 245 15 000 ml @ 75 mls/hr IV . [id number] [facility] Rx#:[id number] Vancomycin 1,000 mg In 125 Sodium Chloride 0.9% 250 ml @ 125 mls/hr IVPB Q12H [facility] Rx#:[id number] Intake, IV Titration 125 Amount Ampicillin-Sulbactam 3 gm 100 In Sodium Chloride 0.9% 100 ml @ 200 mls/hr IVPB Q6HR [facility] Rx#:[id number] Vancomycin 1,000 mg In 25 Sodium Chloride 0.9% 250 ml @ 125 mls/hr IVPB Q12H [facility] Rx#:[id number] Blood Product 0 Ffp 24 Cpd Unit 0 [id number] Output: Urine 305 100 50 Uretheral ([place]) 60 Other: Voiding Method Indwelling Catheter Indwelling Catheter Indwelling Catheter Weight 71.5 kg GENERAL DESCRIPTION: Elderly female lying in bed, no distress. No tachypnea or accessory muscle of respiration use. HEENT: Shows Pallor , no scleral icterus. Oral mucous membrane is dry. No pharyngeal erythema or thrush NECK: Trachea central, no thyromegaly. LUNGS: Unlabored breathing. Clear to auscultation anteriorly. No wheeze or crackle. HEART: S1, S2, regular rate and rhythm. No loud murmur ABDOMEN: Soft, mild distention and tenderness EXTREMITIES: Left foot wound on the dorsum aspect with some surrounding redness and drainage SKIN: No rash, no masses palpable. NEUROLOGICAL: The patient is awake, alert, oriented x3, mood and affect normal. Results CBC & Chem 7: 09/27/22 06:50 09/28/22 06:04 Labs: Abnormal Lab Results - Last 24 Hours (Table) 09/18/22 09/19/22 09/19/22 Range/Units 23:40 08:35 14:33 RBC (3.80-5.40) m/uL Hgb (11.4-16.0) gm/dL Hct (34.0-46.0) % MCV (80.0-100.0) fL Plt Count (150-450) k/uL PT (9.0-12.0) sec INR (<1.2) Sodium 121 L (137-145) mmol/L Chloride (98-107) mmol/L Carbon Dioxide (22-30) mmol/L Glucose (74-99) mg/dL Plasma Lactic Acid Julio Cesar (0.7-2.0) mmol/L Calcium (8.4-10.2) mg/dL Total Bilirubin (0.2-1.3) mg/dL AST (14-36) U/L Total Protein (6.3-8.2) g/dL Albumin (3.5-5.0) g/dL Ur Random Sodium <20 L <20 L (40-220) mmol/L 09/19/22 09/19/22 09/19/22 Range/Units 14:33 14:33 20:07 RBC (3.80-5.40) m/uL Hgb (11.4-16.0) gm/dL Hct (34.0-46.0) % MCV (80.0-100.0) fL Plt Count (150-450) k/uL PT 19.4 H (9.0-12.0) sec INR 2.0 H (<1.2) Sodium 123 L (137-145) mmol/L Chloride (98-107) mmol/L Carbon Dioxide (22-30) mmol/L Glucose (74-99) mg/dL Plasma Lactic Acid Julio Cesar 4.4 H* (0.7-2.0) mmol/L Calcium (8.4-10.2) mg/dL Total Bilirubin (0.2-1.3) mg/dL AST (14-36) U/L Total Protein (6.3-8.2) g/dL Albumin (3.5-5.0) g/dL Ur Random Sodium (40-220) mmol/L 09/20/22 09/20/22 09/20/22 Range/Units 06:00 06:00 06:00 RBC 3.18 L (3.80-5.40) m/uL Hgb 11.0 L (11.4-16.0) gm/dL Hct 32.0 L (34.0-46.0) % MCV 100.6 H (80.0-100.0) fL Plt Count 116 L (150-450) k/uL PT 19.8 H (9.0-12.0) sec INR 2.0 H (<1.2) Sodium 118 L* (137-145) mmol/L Chloride 93 L (98-107) mmol/L Carbon Dioxide 19 L (22-30) mmol/L Glucose 108 H (74-99) mg/dL Plasma Lactic Acid Julio Cesar (0.7-2.0) mmol/L Calcium 7.4 L (8.4-10.2) mg/dL Total Bilirubin 4.4 H (0.2-1.3) mg/dL AST 43 H (14-36) U/L Total Protein 4.8 L (6.3-8.2) g/dL Albumin 2.0 L (3.5-5.0) g/dL Ur Random Sodium (40-220) mmol/L Microbiology - Last 24 Hours (Table) 09/18/22 16:20 Blood Culture Gram Stain - Final Blood Blood Culture - Final Coagulase Negative Staph 09/18/22 16:05 Blood Culture Gram Stain - Preliminary Blood 09/18/22 16:05 Blood Culture - Final Blood 09/18/22 16:03 Gram Stain - Preliminary Foot - Left Wound Culture - Preliminary Presumptive Staph aureus 09/18/22 16:20 Blood Culture - Final Blood Assessment and Plan (1) Abscess of foot Current Visit: Yes Status: Acute Code(s): L02.619 - CUTANEOUS ABSCESS OF UNSPECIFIED FOOT SNOMED Code(s): 072026008 Plan: 1patient with positive blood culture finalized as coagulase negative staph likely skin contamination, blood culture be document clearance 2patient with a nonhealing wound on the dorsum aspect of the left foot with a culture currently growing staph aureus with sensitivities pending patient currently do not have any fever or elevated white count clinically doubt deep infection 3continue the patient on vancomycin while waiting for sensitivities on staph aureus to be finalized 4dry protective dressing to the area changed daily We will follow on clinical condition and cultures to further adjust medication if needed Thank you for this consultation will follow this patient with you Time with Patient: Greater than 30
[2022-09-20 20:27] LABS: Albumin, Fluid Source Paracentesis Fluid; T. Protein, Body Fluid Source Paracentesis Fluid; Total Protein, Body Fluid 583 mg/dL
[2022-09-21] MEDS: AMPICILLIN-SULBACTAM 3 GM in SODIUM CHLORIDE 0.9% 100 ML IVPB SCH ×2 (00:16→05:17)
[2022-09-21] MEDS: traMADol 50 MG TAB PO PRN (01:22)
[2022-09-21] MEDS: NOREPINEPHRINE 4 MG in SODIUM CHLORIDE 0.9% 250 ML IV SCH ×2 (02:07→10:06)
[2022-09-21] MEDS ORDERED: TOLVAPTAN 15 MG 1/2 TABLET PO ONE (02:30)
[2022-09-21] MEDS: VANCOMYCIN 1,000 MG in SODIUM CHLORIDE 0.9% 250 ML IVPB SCH (05:17)
[2022-09-21 06:43] LABS: HGB 11.8 gm/dL (11.4-16.0); MCHC 33.6 g/dL (31.0-37.0); MCV 104.2 fL (80.0-100.0); Macrocytosis Moderate; Mean Platelet Volume 7.7; Platelet Count 134 k/uL (150-450); RBC 3.36 m/uL (3.80-5.40); RDW 14.8 % (11.5-15.5)
[2022-09-21 06:56] LABS: African American GFR (CKD) >90 (>60 ml/min/1.73 sqM); Anion Gap 9 mmol/L; Blood Urea Nitrogen 7 mg/dL (7-17); Calcium 7.4 mg/dL (8.4-10.2); Carbon Dioxide 19 mmol/L (22-30); Chloride 94 mmol/L (98-107); Glucose 159 mg/dL (74-99); Non-African American GFR(CKD) 89 (>60 ml/min/1.73 sqM); Potassium 3.1 mmol/L (3.5-5.1); Sodium 122 mmol/L (137-145)
[2022-09-21] MEDS: PANTOPRAZOLE 40 MG TABLET PO SCH (07:00)
[2022-09-21] MEDS ORDERED: Potassium Replacement Protocol 1 EACH MISC MISCELLANE PRN (07:05)
[2022-09-21] MEDS ORDERED: POTASSIUM BICARBONATE/CIT AC 20 MEQ TABLET.EFF NG-TUBE SCH (08:00)
--- NOTE | 2022-09-21 08:15 | US ---
Ultrasound-guided paracentesis. DATE OF EXAM: 09/20/2022 CLINICAL HISTORY: Ascites The procedure was discussed with the patient. The risks, complications, benefits, and alternatives we re discussed and any questions were answered. Informed consent was obtained. The patient was placed s upine on the ultrasound table and prepped and draped in the usual sterile fashion. All elements of maximal barrier technique were utilized. Under ultrasound guidance, access into the right lower quadrant was obtained, via the paracentesis catheter system and direct ultrasound guidanc e. Approximately 6.1 liters of straw-colored fluid was removed. The patient was stable throughout the pr ocedure and remained stable upon discharge from Department of Radiology. IMPRESSION: Successful paracentesis under ultrasound guidance.
[2022-09-21] MEDS: lisinopriL 20 MG TAB PO SCH (08:29)
[2022-09-21] MEDS: HEPARIN SODIUM,PORCINE/PF 5,000 UNIT/0.5 ML SYRINGE SQ SCH ×2 (08:42→21:46)
[2022-09-21] MEDS: MULTIVITAMINS, THERA 1 EACH TAB PO SCH (08:42)
[2022-09-21] MEDS: FOLIC ACID 1 MG TAB PO SCH (08:42)
[2022-09-21] MEDS: CYANOCOBALAMIN 500 MCG TAB PO SCH (08:42)
[2022-09-21] MEDS ORDERED: POTASSIUM CHLORIDE ER 20 MEQ TAB.ER PO SCH (09:00)
[2022-09-21] MEDS: TORSEMIDE 20 MG TAB PO SCH (10:26)
[2022-09-21 12:23] LABS: Magnesium 1.3 mg/dL (1.6-2.3)
--- NOTE | 2022-09-21 12:30 | P.PN ---
Subjective Progress Note Date: 09/21/22 Principal diagnosis: worsening ascites This is a 71-year-old female with history of multiple medical problems, however she mostly has severe alcohol related liver disease and liver cirrhosis. Patient is familiar to our service, she had been frequently admitted to the hospital for the last few months, and she normally comes in with worsening abdominal ascites and increased abdominal girth associated with some shortness of breath. Patient was admitted yesterday with similar complaints, patient has been noticing increase in the size of her abdomen, and she is retaining fluids. She is also complaining of slight shortness of breath, but no cough no wheezing no chest pain no fever no chills no hemoptysis no melena no hematemesis, no nausea or vomiting. Patient is being treated on outpatient basis for a chronic left foot ulcer with ongoing discharge from the ulcer. She was last discharged from the hospital on 07/16 after she was in the hospital for almost 3 weeks, tr eated at the time for alcohol liver hepatitis and left foot infection underwent paracentesis 2 this time the patient was noted to be mostly hyponatremic with significant ascites. Patient was admitted to the ICU, and this consult was initiated. Patient was seen by nephrology on consultation, did not feel the need for hypertonic saline, she is now on normal saline, and repeat sodium is pending patient is receiving empirically antibiotics in the form of Unasyn for her ascites although clinically I don't believe the patient has spontaneous bacterial peritonitis at this point but nonetheless we'll continue the antibiotics for now. Ultrasound of the abdomen showed ascites/large ascites. Nephrology felt that her hyponatremia is associated with her liver cirrhosis, patient had no previous improvement with saline, and she received Samsca during her last hospitalization. Patient is also receiving antibiotics for her left foot wound infection Reevaluated today on 09/20/22, patient remains in the ICU, she is doing fairly well, her sodium is back down to 118 from 123 yesterday, patient is being followed by nephrology, and she is now on sodium chloride tablets. She is scheduled to undergo paracentesis today at 9 AM, and she will receive at least 1 unit of fresh frozen plasma before her procedure since her INR is elevated.WBC count today 6.3 hemoglobin is 11, sodium is 118 INR is 2.0, chest x-ray showed left basilar subsegmental atelectasis, small tiny pleural effusion, and findings of COPD. Reevaluated today on 09/21/22, patient underwent paracentesis, and just over 6 L of fluid was drained from her abdominal cavity. Postoperatively the patient developed hypotension, she received albumin, did not improve much, I was notified about this patient and I recommended a low-dose norepinephrine. She is still receiving norepinephrine at 0.1 mcg/kg/m, patient remains on vancomycin and Unasyn, however her wound culture is positive for MSSA, and I believe the patient could be transitioned to cefazolin, she is being followed by infectious disease, and I will let infectious disease decided on antibiotics. Her Gram stain from the peritoneal fluid is negative, doubt spontaneous bacterial peritonitis. Clinically the patient is doing well except for a relatively low blood pressure. Labs today were noted, CBC is relatively normal potassium is low at 3.1, and sodium is 122. Objective - Vital Signs Vital signs: Vital Signs Temp 98.2 F 09/21/22 08:00 Pulse 95 09/21/22 10:15 Resp 20 09/21/22 10:15 BP 73/48 09/21/22 10:15 Pulse Ox 95 09/21/22 10:15 FiO2 Intake & Output 09/20/22 09/21/22 09/21/22 18:59 06:59 18:59 Intake Total 825.086 741.193 564.178 Output Total 6400 1230 270 Balance -5574.914 -488.807 294.178 Intake: IV 495 550 80 0.9 KVO 80 200 80 Albumin Human 25% 50 ml 100 In Empty Bag 1 bag @ 50 mls/hr IVPB Q1H [facility] Rx#: [id number] Ampicillin-Sulbactam 3 gm 100 In Sodium Chloride 0.9% 100 ml @ 200 mls/hr IVPB [facility] Rx#:[id number] Ampicillin-Sulbactam 3 gm 100 In Sodium Chloride 0.9% 100 ml @ 200 mls/hr IVPB Q6HR [facility] Rx#:[id number] Sodium Chloride 0.9% 1, 90 000 ml @ 75 mls/hr IV . [id number] [facility] Rx#:[id number] Vancomycin 1,000 mg In 125 250 Sodium Chloride 0.9% 250 ml @ 125 mls/hr IVPB Q12H [facility] Rx#:[id number] Intake, IV Titration 4.086 191.193 284.178 Amount Norepinephrine 4 mg In 4.086 191.193 284.178 Sodium Chloride 0.9% 250 ml @ 0.03 MCG/KG/MIN 8. 172 mls/hr IV .Q24H [facility] Rx#:[id number] Oral 200 Blood Product 326 Ffp 24 Cpd Unit 326 [id number] Output: Urine 300 1230 270 Other 6100 Other: Voiding Method Indwelling Catheter Indwelling Catheter Indwelling Catheter - Exam General appearance: revealed 71-year-old female in no distress.on room air. HET: Head is normocephalic and atraumatic. Conjunctiva pink. Sclera anicteric. Neck: Supple without lymphadenopathy. Trachea midline. Heart:normal S1 and S2, no S3 gallop. Lungs: symmetrical chest expansion, clear throughout no crackles or rhonchi or wheezes Abdomen: Less ascites noted today on physical examination, no rebound no guarding. Skin: No rashes. Extremities: no clubbing edema or cyanosis. Neurological: alert oriented 3 focal deficits - Labs CBC & Chem 7: 09/21/22 06:25 09/21/22 11:55 Labs: Abnormal Lab Results - Last 24 Hours (Table) 09/20/22 09/20/22 09/21/22 Range/Units 17:14 23:56 06:25 RBC 3.36 L (3.80-5.40) m/uL MCV 104.2 H (80.0-100.0) fL Plt Count 134 L (150-450) k/uL Sodium 122 L 121 L (137-145) mmol/L Potassium (3.5-5.1) mmol/L Chloride (98-107) mmol/L Carbon Dioxide (22-30) mmol/L Glucose (74-99) mg/dL Calcium (8.4-10.2) mg/dL Magnesium (1.6-2.3) mg/dL 09/21/22 09/21/22 Range/Units 06:25 11:55 RBC (3.80-5.40) m/uL MCV (80.0-100.0) fL Plt Count (150-450) k/uL Sodium 122 L (137-145) mmol/L Potassium 3.1 L (3.5-5.1) mmol/L Chloride 94 L (98-107) mmol/L Carbon Dioxide 19 L (22-30) mmol/L Glucose 159 H (74-99) mg/dL Calcium 7.4 L (8.4-10.2) mg/dL Magnesium 1.3 L (1.6-2.3) mg/dL Microbiology - Last 24 Hours (Table) 09/20/22 09:09 Gram Stain - Preliminary Paracentesis Fluid Body Fluid Culture - Preliminary 09/20/22 06:00 Blood Culture - Preliminary Blood No Growth after 24 hours 09/18/22 16:03 Gram Stain - Final Foot - Left Wound Culture - Final Staphylococcus aureus 09/20/22 09:09 Anaerobic Culture - Preliminary Paracentesis Fluid 09/18/22 16:20 Blood Culture Gram Stain - Final Blood Blood Culture - Final Coagulase Negative Staph Assessment and Plan Assessment: Impression: Hyponatremia secondary to excessive alcohol use, poor salt intake, and excessive fluid intake. History of alcoholism Ascites secondary to liver cirrhosis, recurrent status post paracentesis, and over 6 L of fluid drained. Post paracentesis hypotension, expected mostly because of the large volume drained from the abdomen. We will continue norepinephrine for now, patient did receive albumin. No need for further albumin infusions Benign essential hypertension History of rheumatoid arthritis Lactic acidosis secondary to chronic alcoholism and liver dysfunction. Foot cellulitis secondary to MSSA, could be treated with cefazolin instead of vancomycin and Unasyn, infectious disease will likely address this today Recommendation: Continue to monitor the patient in the ICU while she is receiving norepinephrine Consider changing vancomycin and Unasyn to cefazolin continue CIWA protocol GI and DVT prophylaxis We will continue to follow Time with Patient: Less than 30
[2022-09-21] MEDS ORDERED: Magnesium Replacement Protocol 1 EACH MISC MISCELLANE PRN (14:49)
--- NOTE | 2022-09-21 14:58 | P.PN ---
Subjective Progress Note Date: 09/21/22 Follow-up for hyponatremia. Good urine output 7 L in the last 24 hours. She had paracentesis with 6 L of fluid removed. Objective - Vital Signs Vital signs: Vital Signs Temp 98.2 F 09/21/22 12:00 Pulse 101 H 09/21/22 14:30 Resp 18 09/21/22 14:30 BP 100/67 09/21/22 14:30 Pulse Ox 97 09/21/22 14:30 FiO2 Intake & Output 09/20/22 09/21/22 09/21/22 18:59 06:59 18:59 Intake Total 825.086 741.193 844.178 Output Total 6400 1230 440 Balance -5574.914 -488.807 404.178 Intake: IV 495 550 160 0.9 KVO 80 200 160 Albumin Human 25% 50 ml 100 In Empty Bag 1 bag @ 50 mls/hr IVPB Q1H [facility] Rx#: [id number] Ampicillin-Sulbactam 3 gm 100 In Sodium Chloride 0.9% 100 ml @ 200 mls/hr IVPB ONCE [facility] Rx#:[id number] Ampicillin-Sulbactam 3 gm 100 In Sodium Chloride 0.9% 100 ml @ 200 mls/hr IVPB Q6HR [facility] Rx#:[id number] Sodium Chloride 0.9% 1, 90 000 ml @ 75 mls/hr IV . [id number] [facility] Rx#:[id number] Vancomycin 1,000 mg In 125 250 Sodium Chloride 0.9% 250 ml @ 125 mls/hr IVPB Q12H [facility] Rx#:[id number] Intake, IV Titration 4.086 191.193 284.178 Amount Norepinephrine 4 mg In 4.086 191.193 284.178 Sodium Chloride 0.9% 250 ml @ 0.03 MCG/KG/MIN 8. 172 mls/hr IV .Q24H [facility] Rx#:[id number] Oral 400 Blood Product 326 Ffp 24 Cpd Unit 326 [id number] Output: Urine 300 1230 440 Other 6100 Other: Voiding Method Indwelling Catheter Indwelling Catheter Indwelling Catheter - Exam No acute distress S1-S2 heard Decreased breath sounds abdomen distended No edema - Labs CBC & Chem 7: 09/21/22 06:25 09/21/22 11:55 Labs: Abnormal Lab Results - Last 24 Hours (Table) 09/20/22 09/20/22 09/21/22 Range/Units 17:14 23:56 06:25 RBC 3.36 L (3.80-5.40) m/uL MCV 104.2 H (80.0-100.0) fL Plt Count 134 L (150-450) k/uL Sodium 122 L 121 L (137-145) mmol/L Potassium (3.5-5.1) mmol/L Chloride (98-107) mmol/L Carbon Dioxide (22-30) mmol/L Glucose (74-99) mg/dL Calcium (8.4-10.2) mg/dL Magnesium (1.6-2.3) mg/dL 09/21/22 09/21/22 Range/Units 06:25 11:55 RBC (3.80-5.40) m/uL MCV (80.0-100.0) fL Plt Count (150-450) k/uL Sodium 122 L (137-145) mmol/L Potassium 3.1 L (3.5-5.1) mmol/L Chloride 94 L (98-107) mmol/L Carbon Dioxide 19 L (22-30) mmol/L Glucose 159 H (74-99) mg/dL Calcium 7.4 L (8.4-10.2) mg/dL Magnesium 1.3 L (1.6-2.3) mg/dL Microbiology - Last 24 Hours (Table) 09/18/22 16:05 Blood Culture Gram Stain - Preliminary Blood Blood Culture - Preliminary Coagulase Negative Staph 09/20/22 09:09 Gram Stain - Preliminary Paracentesis Fluid Body Fluid Culture - Preliminary 09/20/22 06:00 Blood Culture - Preliminary Blood No Growth after 24 hours 09/18/22 16:03 Gram Stain - Final Foot - Left Wound Culture - Final Staphylococcus aureus 09/20/22 09:09 Anaerobic Culture - Preliminary Paracentesis Fluid 09/18/22 16:20 Blood Culture Gram Stain - Final Blood Blood Culture - Final Coagulase Negative Staph Assessment and Plan Assessment: #1 hypervolemic hyponatremia secondary to chronic liver disease. #2 decompensated liver disease status post paracentesis with 6 L of fluid removed. #3 shock on levo fed. Plan: #1 sodium stable but not improving. Good urine output. #2 status post Samsca 15 mg yesterday. Give 1 more dose of 30 mg today. #3 discontinue lisinopril #4 albumin 50 g today for paracentesis #4 check labs in the morning including serum osmolality.
--- NOTE | 2022-09-21 15:06 | P.PN ---
Subjective Progress Note Date: 09/21/22 Principal diagnosis: left foot wound and a positive blood culture Patient is a 71 year female with multiple comorbidity patient did have alcohol liver disease/cirrhosis with multiple admission to the hospital for ascites and requiring paracentesis last admission was back in June with the patient did require paracentesis 2 during that admission patient also develop swelling to the left foot area patient did have a CT of the foot that was suggestive mostly hematoma no evidence of any abscess , patient presented to hospital with abdominal distention worsening ascites and need for paracentesis she did have a positive blood culture and a nonhealing wound to the left foot with a positive culture on today's evaluation that is 09/21/2022, the patient is currently afebrile, the patient is breathing comfortably on room air. Denies having any chest pain or shortness of breath or abdominal discomfort has decreased denies any pain to the left foot or any worsening drainage Objective - Vital Signs Vital signs: Vital Signs Temp 98.2 F 09/21/22 08:00 Pulse 95 09/21/22 10:15 Resp 20 09/21/22 10:15 BP 73/48 09/21/22 10:15 Pulse Ox 95 09/21/22 10:15 FiO2 Intake & Output 09/20/22 09/21/22 09/21/22 18:59 06:59 18:59 Intake Total 825.086 741.193 519.229 Output Total 6400 1230 270 Balance -5574.914 -488.807 249.229 Intake: IV 495 550 80 0.9 KVO 80 200 80 Albumin Human 25% 50 ml 100 In Empty Bag 1 bag @ 50 mls/hr IVPB Q1H [facility] Rx#: [id number] Ampicillin-Sulbactam 3 gm 100 In Sodium Chloride 0.9% 100 ml @ 200 mls/hr IVPB ONCE [facility] Rx#:[id number] Ampicillin-Sulbactam 3 gm 100 In Sodium Chloride 0.9% 100 ml @ 200 mls/hr IVPB Q6HR [facility] Rx#:[id number] Sodium Chloride 0.9% 1, 90 000 ml @ 75 mls/hr IV . [id number] [facility] Rx#:[id number] Vancomycin 1,000 mg In 125 250 Sodium Chloride 0.9% 250 ml @ 125 mls/hr IVPB Q12H [facility] Rx#:[id number] Intake, IV Titration 4.086 191.193 239.229 Amount Norepinephrine 4 mg In 4.086 191.193 239.229 Sodium Chloride 0.9% 250 ml @ 0.03 MCG/KG/MIN 8. 172 mls/hr IV .Q24H [facility] Rx#:[id number] Oral 200 Blood Product 326 Ffp 24 Cpd Unit 326 [id number] Output: Urine 300 1230 270 Other 6100 Other: Voiding Method Indwelling Catheter Indwelling Catheter Indwelling Catheter - Exam GENERAL DESCRIPTION: An elderly female lying in bed in no distress RESPIRATORY SYSTEM: Unlabored breathing , decreased breath sounds at bases HEART: S1 S2 regular rate and rhythm , ABDOMEN: Soft , no tenderness EXTREMITIES: left foot dorsum wound is currently dressed no drainage on the dressing - Labs CBC & Chem 7: 09/21/22 06:25 09/21/22 11:55 Labs: Abnormal Lab Results - Last 24 Hours (Table) 09/20/22 09/20/22 09/20/22 Range/Units 11:50 17:14 23:56 RBC (3.80-5.40) m/uL MCV (80.0-100.0) fL Plt Count (150-450) k/uL Sodium 119 L* 122 L 121 L (137-145) mmol/L Potassium (3.5-5.1) mmol/L Chloride (98-107) mmol/L Carbon Dioxide (22-30) mmol/L Glucose (74-99) mg/dL Calcium (8.4-10.2) mg/dL 09/21/22 09/21/22 Range/Units 06:25 06:25 RBC 3.36 L (3.80-5.40) m/uL MCV 104.2 H (80.0-100.0) fL Plt Count 134 L (150-450) k/uL Sodium 122 L (137-145) mmol/L Potassium 3.1 L (3.5-5.1) mmol/L Chloride 94 L (98-107) mmol/L Carbon Dioxide 19 L (22-30) mmol/L Glucose 159 H (74-99) mg/dL Calcium 7.4 L (8.4-10.2) mg/dL Microbiology - Last 24 Hours (Table) 09/20/22 09:09 Gram Stain - Preliminary Paracentesis Fluid Body Fluid Culture - Preliminary 09/20/22 06:00 Blood Culture - Preliminary Blood No Growth after 24 hours 09/18/22 16:03 Gram Stain - Final Foot - Left Wound Culture - Final Staphylococcus aureus 09/20/22 09:09 Anaerobic Culture - Preliminary Paracentesis Fluid 09/18/22 16:20 Blood Culture Gram Stain - Final Blood Blood Culture - Final Coagulase Negative Staph 09/18/22 16:05 Blood Culture Gram Stain - Preliminary Blood Assessment and Plan (1) Bacteremia Current Visit: Yes Status: Acute Code(s): R78.81 - BACTEREMIA SNOMED Code(s): 4230257 (2) Wound of left foot Current Visit: Yes Status: Acute Code(s): S91.302A - UNSPECIFIED OPEN WOUND, LEFT FOOT, INITIAL ENCOUNTER SNOMED Code(s): 530870496 Plan: 1patient with positive blood culture finalized as coagulase negative staph likely skin contamination, blood culture has been repeated to document clearance 2patient with a nonhealing wound on the dorsum aspect of the left foot with a culture currently growing MSSA 3-discontinue vancomycin and Unasyn started the patient on cefazolin 2 g every 8 hours
[2022-09-21] MEDS: ALBUMIN HUMAN 25% 50 ML in EMPTY BAG 1 BAG IVPB SCH ×4 (15:26→17:46)
[2022-09-21] MEDS: SPIRONOLACTONE 25 MG TAB PO SCH (15:26)
[2022-09-21] MEDS ORDERED: TOLVAPTAN 30 MG TABLET PO ONE (16:00)
[2022-09-21] MEDS ORDERED: VANCOMYCIN TROUGH DUE 1 EACH MISC MISCELLANE ONE (17:00)
[2022-09-21] MEDS: MAGNESIUM SULFATE-D5W PMX 1 GM in DEXTROSE/WATER 1 100ML.BAG IVPB SCH ×3 (19:54→23:31)
[2022-09-22] MEDS: NOREPINEPHRINE 4 MG in SODIUM CHLORIDE 0.9% 250 ML IV SCH (03:50)
[2022-09-22 06:15] LABS: ALT 16 U/L (4-34); AST 33 U/L (14-36); African American GFR (CKD) >90 (>60 ml/min/1.73 sqM); Albumin 2.8 g/dL (3.5-5.0); Alkaline Phosphatase 87 U/L (38-126); Anion Gap 6 mmol/L; Blood Urea Nitrogen 4 mg/dL (7-17); Calcium 7.9 mg/dL (8.4-10.2); Carbon Dioxide 24 mmol/L (22-30); Chloride 97 mmol/L (98-107); Glucose 105 mg/dL (74-99); Magnesium 2.1 mg/dL (1.6-2.3); Non-African American GFR(CKD) >90 (>60 ml/min/1.73 sqM); Potassium 3.6 mmol/L (3.5-5.1); Sodium 127 mmol/L (137-145); Total Bilirubin 3.2 mg/dL (0.2-1.3)
[2022-09-22] MEDS ORDERED: POTASSIUM CHLORIDE ER 20 MEQ TAB.ER PO SCH (08:00)
[2022-09-22] MEDS: FOLIC ACID 1 MG TAB PO SCH (10:02)
[2022-09-22] MEDS: PANTOPRAZOLE 40 MG TABLET PO SCH (10:02)
[2022-09-22] MEDS: MULTIVITAMINS, THERA 1 EACH TAB PO SCH (10:03)
[2022-09-22] MEDS: SPIRONOLACTONE 25 MG TAB PO SCH (10:03)
[2022-09-22] MEDS: HEPARIN SODIUM,PORCINE/PF 5,000 UNIT/0.5 ML SYRINGE SQ SCH ×2 (10:03→21:58)
[2022-09-22] MEDS: CYANOCOBALAMIN 500 MCG TAB PO SCH (10:03)
[2022-09-22] MEDS: TORSEMIDE 20 MG TAB PO SCH (10:04)
--- NOTE | 2022-09-22 12:42 | P.PN ---
Subjective Progress Note Date: 09/22/22 Principal diagnosis: worsening ascites This is a 71-year-old female with history of multiple medical problems, however she mostly has severe alcohol related liver disease and liver cirrhosis. Patient is familiar to our service, she had been frequently admitted to the hospital for the last few months, and she normally comes in with worsening abdominal ascites and increased abdominal girth associated with some shortness of breath. Patient was admitted yesterday with similar complaints, patient has been noticing increase in the size of her abdomen, and she is retaining fluids. She is also complaining of slight shortness of breath, but no cough no wheezing no chest pain no fever no chills no hemoptysis no melena no hematemesis, no nausea or vomiting. Patient is being treated on outpatient basis for a chronic left foot ulcer with ongoing discharge from the ulcer. She was last discharged from the hospital on 07/16 after she was in the hospital for almost 3 weeks, tr eated at the time for alcohol liver hepatitis and left foot infection underwent paracentesis 2 this time the patient was noted to be mostly hyponatremic with significant ascites. Patient was admitted to the ICU, and this consult was initiated. Patient was seen by nephrology on consultation, did not feel the need for hypertonic saline, she is now on normal saline, and repeat sodium is pending patient is receiving empirically antibiotics in the form of Unasyn for her ascites although clinically I don't believe the patient has spontaneous bacterial peritonitis at this point but nonetheless we'll continue the antibiotics for now. Ultrasound of the abdomen showed ascites/large ascites. Nephrology felt that her hyponatremia is associated with her liver cirrhosis, patient had no previous improvement with saline, and she received Samsca during her last hospitalization. Patient is also receiving antibiotics for her left foot wound infection Reevaluated today on 09/20/22, patient remains in the ICU, she is doing fairly well, her sodium is back down to 118 from 123 yesterday, patient is being followed by nephrology, and she is now on sodium chloride tablets. She is scheduled to undergo paracentesis today at 9 AM, and she will receive at least 1 unit of fresh frozen plasma before her procedure since her INR is elevated.WBC count today 6.3 hemoglobin is 11, sodium is 118 INR is 2.0, chest x-ray showed left basilar subsegmental atelectasis, small tiny pleural effusion, and findings of COPD. Reevaluated today on 09/21/22, patient underwent paracentesis, and just over 6 L of fluid was drained from her abdominal cavity. Postoperatively the patient developed hypotension, she received albumin, did not improve much, I was notified about this patient and I recommended a low-dose norepinephrine. She is still receiving norepinephrine at 0.1 mcg/kg/m, patient remains on vancomycin and Unasyn, however her wound culture is positive for MSSA, and I believe the patient could be transitioned to cefazolin, she is being followed by infectious disease, and I will let infectious disease decided on antibiotics. Her Gram stain from the peritoneal fluid is negative, doubt spontaneous bacterial peritonitis. Clinically the patient is doing well except for a relatively low blood pressure. Labs today were noted, CBC is relatively normal potassium is low at 3.1, and sodium is 122. Reevaluated today on 09/18/22, patient is off norepinephrine, she is doing well, her sodium is up to 127, hence I will arrange for the patient to transfer out of the ICU, she should even be considered to be discharged home. Patient is on room air, she is not in any distress, and she is not requiring any IV drips at this point. Objective - Vital Signs Vital signs: Vital Signs Temp 98.2 F 09/22/22 08:00 Pulse 96 09/22/22 10:00 Resp 22 09/22/22 10:00 BP 92/66 09/22/22 10:00 Pulse Ox 96 09/22/22 10:00 FiO2 Intake & Output 09/21/22 09/22/22 09/22/22 18:59 06:59 18:59 Intake Total 1345.403 427.826 559.068 Output Total 620 1205 350 Balance 725.403 -777.174 209.068 Intake: IV 240 240 140 0.9 KVO 240 240 90 ceFAZolin 2 gm In Sodium 50 Chloride 0.9% 50 ml @ 100 mls/hr IVPB Q8HR [facility] Rx# :[id number] Intake, IV Titration 405.403 187.826 19.068 Amount Magnesium Sulfate-D5w Pmx 100 1 gm In Dextrose/Water 1 100ml.bag @ 100 mls/hr IVPB Q1H [facility] Rx#: [id number] Norepinephrine 4 mg In 405.403 87.826 19.068 Sodium Chloride 0.9% 250 ml @ 0.03 MCG/KG/MIN 8. 172 mls/hr IV .Q24H [facility] Rx#:[id number] Oral 700 400 Output: Urine 620 1205 350 Other: Voiding Method Indwelling Catheter Indwelling Catheter Indwelling Catheter # Bowel Movements 1 - Exam General appearance: revealed 71-year-old female in no distress.on room air. HET: Head is normocephalic and atraumatic. Conjunctiva pink. Sclera anicteric. Neck: Supple without lymphadenopathy. Trachea midline. Heart:normal S1 and S2, no S3 gallop. Lungs: symmetrical chest expansion, clear throughout no crackles or rhonchi or wheezes Abdomen: Less ascites noted today on physical examination, no rebound no guarding. Skin: No rashes. Extremities: no clubbing edema or cyanosis. Neurological: alert oriented 3 focal deficits - Labs CBC & Chem 7: 09/21/22 06:25 09/22/22 04:10 Labs: Abnormal Lab Results - Last 24 Hours (Table) 09/22/22 Range/Units 04:10 Sodium 127 L (137-145) mmol/L Chloride 97 L (98-107) mmol/L BUN 4 L (7-17) mg/dL Glucose 105 H (74-99) mg/dL Osmolality 263 L (280-301) mosm/kg Calcium 7.9 L (8.4-10.2) mg/dL Total Bilirubin 3.2 H (0.2-1.3) mg/dL Total Protein 5.0 L (6.3-8.2) g/dL Albumin 2.8 L (3.5-5.0) g/dL Microbiology - Last 24 Hours (Table) 09/20/22 09:09 Gram Stain - Preliminary Paracentesis Fluid Body Fluid Culture - Preliminary 09/20/22 06:00 Blood Culture - Preliminary Blood No Growth after 48 hours 09/18/22 16:05 Blood Culture Gram Stain - Preliminary Blood Blood Culture - Preliminary Coagulase Negative Staph Assessment and Plan Assessment: Impression: Hyponatremia secondary to excessive alcohol use, poor salt intake, and excessive fluid intake. History of alcoholism Ascites secondary to liver cirrhosis, recurrent status post paracentesis, and over 6 L of fluid drained. Post paracentesis hypotension, expected mostly because of the large volume drained from the abdomen. We will continue norepinephrine for now, patient did receive albumin. No need for further albumin infusions Benign essential hypertension History of rheumatoid arthritis Lactic acidosis secondary to chronic alcoholism and liver dysfunction. Foot cellulitis secondary to MSSA, could be treated with cefazolin instead of vancomycin and Unasyn, infectious disease will likely address this today Recommendation: transfer patient out of the ICU to regular medical floor Consider discharge planning if agreeable with the other consultants and with the admitting physician Will clear the patient for discharge Antibiotics for foot cellulitis to be given orally continue CIWA protocol GI and DVT prophylaxis We will continue to follow Time with Patient: Less than 30
[2022-09-22] MEDS: MIDODRINE 5 MG TAB PO SCH ×2 (12:58→17:03)
--- NOTE | 2022-09-22 13:18 | P.PN ---
Subjective Progress Note Date: 09/22/22 Principal diagnosis: left foot wound and a positive blood culture Patient is a 71 year female with multiple comorbidity patient did have alcohol liver disease/cirrhosis with multiple admission to the hospital for ascites and requiring paracentesis last admission was back in June with the patient did require paracentesis 2 during that admission patient also develop swelling to the left foot area patient did have a CT of the foot that was suggestive mostly hematoma no evidence of any abscess , patient presented to hospital with abdominal distention worsening ascites and need for paracentesis she did have a positive blood culture and a nonhealing wound to the left foot with a positive culture on today's evaluation that is 09/22/2022, the patient remains to be afebrile, the patient is breathing comfortably on room air. The patient denies having any chest pain or shortness of breath , the patient abdominal discomfort has decreased denies any pain to the left foot or any worsening drainage Objective - Vital Signs Vital signs: Vital Signs Temp 98.2 F 09/22/22 08:00 Pulse 96 09/22/22 10:00 Resp 22 09/22/22 10:00 BP 92/66 09/22/22 10:00 Pulse Ox 96 09/22/22 10:00 FiO2 Intake & Output 09/21/22 09/22/22 09/22/22 18:59 06:59 18:59 Intake Total 1345.403 427.826 559.068 Output Total 620 1205 350 Balance 725.403 -777.174 209.068 Intake: IV 240 240 140 0.9 KVO 240 240 90 ceFAZolin 2 gm In Sodium 50 Chloride 0.9% 50 ml @ 100 mls/hr IVPB Q8HR [facility] Rx# :[id number] Intake, IV Titration 405.403 187.826 19.068 Amount Magnesium Sulfate-D5w Pmx 100 1 gm In Dextrose/Water 1 100ml.bag @ 100 mls/hr IVPB Q1H [facility] Rx#: [id number] Norepinephrine 4 mg In 405.403 87.826 19.068 Sodium Chloride 0.9% 250 ml @ 0.03 MCG/KG/MIN 8. 172 mls/hr IV .Q24H [facility] Rx#:[id number] Oral 700 400 Output: Urine 620 1205 350 Other: Voiding Method Indwelling Catheter Indwelling Catheter Indwelling Catheter # Bowel Movements 1 - Exam GENERAL DESCRIPTION: An elderly female lying in bed in no distress RESPIRATORY SYSTEM: Unlabored breathing , decreased breath sounds at bases HEART: S1 S2 regular rate and rhythm , ABDOMEN: Soft , no tenderness EXTREMITIES: left foot dorsum wound is currently dressed no drainage on the dressing - Labs CBC & Chem 7: 09/21/22 06:25 09/22/22 04:10 Labs: Abnormal Lab Results - Last 24 Hours (Table) 09/22/22 Range/Units 04:10 Sodium 127 L (137-145) mmol/L Chloride 97 L (98-107) mmol/L BUN 4 L (7-17) mg/dL Glucose 105 H (74-99) mg/dL Osmolality 263 L (280-301) mosm/kg Calcium 7.9 L (8.4-10.2) mg/dL Total Bilirubin 3.2 H (0.2-1.3) mg/dL Total Protein 5.0 L (6.3-8.2) g/dL Albumin 2.8 L (3.5-5.0) g/dL Microbiology - Last 24 Hours (Table) 09/20/22 09:09 Gram Stain - Preliminary Paracentesis Fluid Body Fluid Culture - Preliminary 09/20/22 06:00 Blood Culture - Preliminary Blood No Growth after 48 hours 09/18/22 16:05 Blood Culture Gram Stain - Preliminary Blood Blood Culture - Preliminary Coagulase Negative Staph Assessment and Plan (1) Bacteremia Current Visit: Yes Status: Acute Code(s): R78.81 - BACTEREMIA SNOMED Code(s): 1039247 (2) Wound of left foot Current Visit: Yes Status: Acute Code(s): S91.302A - UNSPECIFIED OPEN WOUND, LEFT FOOT, INITIAL ENCOUNTER SNOMED Code(s): 082985644 Plan: 1patient with positive blood culture finalized as coagulase negative staph likely skin contamination, blood culture has been repeated on 09/20/2022 and they have been negative so for 2patient with a nonhealing wound on the dorsum aspect of the left foot with a culture grew MSSA Patient to continue with cefazolin 2 g every 8 hours and apply protective dressing to the left foot Time with Patient: Less than 30
[2022-09-22] MEDS ORDERED: TOLVAPTAN 30 MG TABLET PO ONE (13:32)
--- NOTE | 2022-09-22 13:32 | P.PN ---
Subjective Progress Note Date: 09/22/22 Follow-up for hyponatremia. Admits good urine output, Latham has been removed, no acute or documentation. No nausea vomiting or diarrhea. She had paracentesis yesterday with 6 L of fluid removed. Objective - Vital Signs Vital signs: Vital Signs Temp 98.2 F 09/22/22 08:00 Pulse 96 09/22/22 10:00 Resp 22 09/22/22 10:00 BP 92/66 09/22/22 10:00 Pulse Ox 96 09/22/22 10:00 FiO2 Intake & Output 09/21/22 09/22/22 09/22/22 18:59 06:59 18:59 Intake Total 1345.403 427.826 559.068 Output Total 620 1205 350 Balance 725.403 -777.174 209.068 Intake: IV 240 240 140 0.9 KVO 240 240 90 ceFAZolin 2 gm In Sodium 50 Chloride 0.9% 50 ml @ 100 mls/hr IVPB Q8HR [facility] Rx# :[id number] Intake, IV Titration 405.403 187.826 19.068 Amount Magnesium Sulfate-D5w Pmx 100 1 gm In Dextrose/Water 1 100ml.bag @ 100 mls/hr IVPB Q1H [facility] Rx#: [id number] Norepinephrine 4 mg In 405.403 87.826 19.068 Sodium Chloride 0.9% 250 ml @ 0.03 MCG/KG/MIN 8. 172 mls/hr IV .Q24H [facility] Rx#:[id number] Oral 700 400 Output: Urine 620 1205 350 Other: Voiding Method Indwelling Catheter Indwelling Catheter Indwelling Catheter # Bowel Movements 1 - Exam No acute distress S1-S2 heard Decreased breath sounds abdomen distended No edema - Labs CBC & Chem 7: 09/21/22 06:25 09/22/22 04:10 Labs: Abnormal Lab Results - Last 24 Hours (Table) 09/22/22 Range/Units 04:10 Sodium 127 L (137-145) mmol/L Chloride 97 L (98-107) mmol/L BUN 4 L (7-17) mg/dL Glucose 105 H (74-99) mg/dL Osmolality 263 L (280-301) mosm/kg Calcium 7.9 L (8.4-10.2) mg/dL Total Bilirubin 3.2 H (0.2-1.3) mg/dL Total Protein 5.0 L (6.3-8.2) g/dL Albumin 2.8 L (3.5-5.0) g/dL Microbiology - Last 24 Hours (Table) 09/20/22 09:09 Gram Stain - Preliminary Paracentesis Fluid Body Fluid Culture - Preliminary 09/20/22 06:00 Blood Culture - Preliminary Blood No Growth after 48 hours 09/18/22 16:05 Blood Culture Gram Stain - Preliminary Blood Blood Culture - Preliminary Coagulase Negative Staph Assessment and Plan Assessment: #1 hypervolemic hyponatremia secondary to chronic liver disease. #2 decompensated liver disease status post paracentesis with 6 L of fluid removed. #3 shock on levo fed. Plan: #1 sodium proving status post Samsca yesterday. #2 Give 1 more dose of 30 mg today. #3 albumin 50 g started for paracentesis #4 check labs in the morning
[2022-09-22] MEDS: traMADol 50 MG TAB PO PRN (20:01)
--- NOTE | 2022-09-22 23:52 | P.PN ---
Subjective Progress Note Date: 09/21/22 Pleasant 71 years old female with multiple medical problems as below. Presents because of c/o swelling to abdomen with short of breath hx liver cirrohsis lung sounds crackles bilat jaundice eye with wound to left foot. She comes because of abdominal distention and some little dyspnea, no significant chest pain, no coughing, she has some mild periumbilical abdominal pain for the last 10 days, nonspecific, nonradiating She denies any headache dizziness or weakness or numbness, no urinary complaints. No vomiting or diarrhea. Also patient is awake and alert to place and person but she is disoriented to time, she thought she came to the hospital 1 week ago but actually she came last night. Patient was updated Patient also she has a chronic ulcer in her left foot and there is still some discharge but there is no surrounding cellulitis and x-ray looks negative. Patient was recently discharged from this hospital 06/10-07/16 for alcoholic liver hepatitis and left foot infection and she underwent paracentesis 2. Also she had hypernatremia 106 went up to 125 open discharge Currently presents also with abdominal distention and shortness of breath. She denies a smoking or illicit drugs, first she told me she drinks wine only one cup twice a month but then when I ask her more she said last week she drink twice however she denies daily drinking of alcohol. At baseline she walks with a walker Vitals looks stable, afebrile Sodium 117-118 on admission. Lactic acid elevated 4.1, currently 2.3. Bilirubin elevated 4.9-6.2, last time she was discharged on bilirubin of 3.6 and on 08/14/2022 was 5.7 Mildly elevated liver enzymes, AST 4.9, ALT normal 24. Urine osmolality is 291 Serum alcohol: Less than 10 Foot x-ray showing no fracture dislocation In the emergency room she received Unasyn, ceftriaxone 1 and placed on normal saline 75 mL/h with nephrology been consulted 09/21/2022 Patient is currently in the MICU. Lying in the bed. Awake alert and oriented x3. Patient is status post paracentesis ultrasound-guided with 6.1 L fluid removal. Patient was hypotensive postoperatively and was started pressor support. Patient was also given albumin. Blood cultures grew MSSA. Antibiotics changed to cefazolin. Vancomycin has been discontinued. Fluid cytology is negative for SBP. WBC count 23. Laboratory data showed WBC 9.0 hemoglobin 11.8 and platelets 134 Sodium 122 potassium 3.1 chloride 94 bicarb is 19 BUN 7 creatinine 0.63 and calcium 7.4. Pulmonary and ID and nephrology is on board. Current medications reviewed. Objective - Vital Signs Vital signs: Vital Signs Temp 98.1 F 09/21/22 20:00 Pulse 93 09/21/22 21:15 Resp 16 09/21/22 21:15 BP 96/56 09/21/22 21:15 Pulse Ox 98 09/21/22 21:15 FiO2 Intake & Output 09/21/22 09/21/22 09/22/22 06:59 18:59 06:59 Intake Total 394.049 0404.403 140 Output Total 1230 620 215 Balance -488.807 725.403 -75 Intake: IV 550 240 40 0.9 KVO 200 240 40 Ampicillin-Sulbactam 3 gm 100 In Sodium Chloride 0.9% 100 ml @ 200 mls/hr IVPB Q6HR [facility] Rx#:[id number] Vancomycin 1,000 mg In 250 Sodium Chloride 0.9% 250 ml @ 125 mls/hr IVPB Q12H [facility] Rx#:[id number] Intake, IV Titration 191.193 405.403 100 Amount Magnesium Sulfate-D5w Pmx 100 1 gm In Dextrose/Water 1 100ml.bag @ 100 mls/hr IVPB Q1H [facility] Rx#: [id number] Norepinephrine 4 mg In 191.193 405.403 Sodium Chloride 0.9% 250 ml @ 0.03 MCG/KG/MIN 8. 172 mls/hr IV .Q24H [facility] Rx#:[id number] Oral 700 Output: Urine 1230 620 215 Other: Voiding Method Indwelling Catheter Indwelling Catheter - Exam PHYSICAL EXAMINATION: Patient is lying in the bed comfortably, no acute distress, awake alert and oriented.. HEENT: Normocephalic. Neck is supple. Pupils reactive. Nostrils clear. Oral cavity is moist. Neck reveals no JVD, carotid bruits, or thyromegaly. CHEST EXAMINATION: Trachea is central. Symmetrical expansion. Lung cervantes clear to auscultation and percussion. CARDIAC: Normal S1, S2 with no gallops. No murmurs ABDOMEN: Soft. Distended with ascites. Bowel sounds present. nontender. Extremities: Bilateral lower extremity trace edema. No clubbing or cyanosis Neurologically awake, alert, oriented x3 with well-coordinated movements. No focal deficits noted Skin: No rash or skin lesions. Psychiatric: Cooperative. Nonsuicidal Musculoskeletal: No joint swelling or deformity. Normal range of motion. - Labs CBC & Chem 7: 09/21/22 06:25 09/22/22 04:10 Labs: Abnormal Lab Results - Last 24 Hours (Table) 09/20/22 09/21/22 09/21/22 Range/Units 23:56 06:25 06:25 RBC 3.36 L (3.80-5.40) m/uL MCV 104.2 H (80.0-100.0) fL Plt Count 134 L (150-450) k/uL Sodium 121 L 122 L (137-145) mmol/L Potassium 3.1 L (3.5-5.1) mmol/L Chloride 94 L (98-107) mmol/L Carbon Dioxide 19 L (22-30) mmol/L Glucose 159 H (74-99) mg/dL Calcium 7.4 L (8.4-10.2) mg/dL Magnesium (1.6-2.3) mg/dL 09/21/22 Range/Units 11:55 RBC (3.80-5.40) m/uL MCV (80.0-100.0) fL Plt Count (150-450) k/uL Sodium (137-145) mmol/L Potassium (3.5-5.1) mmol/L Chloride (98-107) mmol/L Carbon Dioxide (22-30) mmol/L Glucose (74-99) mg/dL Calcium (8.4-10.2) mg/dL Magnesium 1.3 L (1.6-2.3) mg/dL Microbiology - Last 24 Hours (Table) 09/18/22 16:05 Blood Culture Gram Stain - Preliminary Blood Blood Culture - Preliminary Coagulase Negative Staph 09/20/22 09:09 Gram Stain - Preliminary Paracentesis Fluid Body Fluid Culture - Preliminary 09/20/22 06:00 Blood Culture - Preliminary Blood No Growth after 24 hours 09/18/22 16:03 Gram Stain - Final Foot - Left Wound Culture - Final Staphylococcus aureus Assessment and Plan Assessment: De-Compensated alcoholic liver disease with possible cirrhosis with ascites and jaundice. s/ p paracentesis Post paracentesis hypotension. Status post albumin dose and also currently requiring pressor support. recurrent severe hypernatremia, large related to alcohol use disorder Elevated lactic acid left foot cellulitis COPD, no acute exacerbation History of GERD Hypertension Hyperlipidemia History of rheumatoid arthritis COPD, GERD/Reflux, Hyperlipidemia, Hypertension, Liver Disease, Rheumatoid Arthritis (RA) Plan: Patient is status post paracentesis. Started on norepinephrine due to hypotension also albumin IV was given. Patient is being monitored in the MICU. Continue with Aldactone, torsemide Continue with home medication of Ultram when necessary Antibiotics changed to cefazolin as per ID recommendations. DVT prophylaxis: Subcutaneous heparin GI Prophylaxis: Ppi PT/OT: Pending Prognosis is guarded Time with Patient: Greater than 30
[2022-09-23] MEDS: METOPROLOL TARTRATE 12.5 MG TAB PO SCH ×3 (00:22→23:29)
--- NOTE | 2022-09-23 00:24 | P.PN ---
Subjective Progress Note Date: 09/22/22 Pleasant 71 years old female with multiple medical problems as below. Presents because of c/o swelling to abdomen with short of breath hx liver cirrohsis lung sounds crackles bilat jaundice eye with wound to left foot. She comes because of abdominal distention and some little dyspnea, no significant chest pain, no coughing, she has some mild periumbilical abdominal pain for the last 10 days, nonspecific, nonradiating She denies any headache dizziness or weakness or numbness, no urinary complaints. No vomiting or diarrhea. Also patient is awake and alert to place and person but she is disoriented to time, she thought she came to the hospital 1 week ago but actually she came last night. Patient was updated Patient also she has a chronic ulcer in her left foot and there is still some discharge but there is no surrounding cellulitis and x-ray looks negative. Patient was recently discharged from this hospital 06/10-07/16 for alcoholic liver hepatitis and left foot infection and she underwent paracentesis 2. Also she had hypernatremia 106 went up to 125 open discharge Currently presents also with abdominal distention and shortness of breath. She denies a smoking or illicit drugs, first she told me she drinks wine only one cup twice a month but then when I ask her more she said last week she drink twice however she denies daily drinking of alcohol. At baseline she walks with a walker Vitals looks stable, afebrile Sodium 117-118 on admission. Lactic acid elevated 4.1, currently 2.3. Bilirubin elevated 4.9-6.2, last time she was discharged on bilirubin of 3.6 and on 08/14/2022 was 5.7 Mildly elevated liver enzymes, AST 4.9, ALT normal 24. Urine osmolality is 291 Serum alcohol: Less than 10 Foot x-ray showing no fracture dislocation In the emergency room she received Unasyn, ceftriaxone 1 and placed on normal saline 75 mL/h with nephrology been consulted 09/21/2022 Patient is currently in the MICU. Lying in the bed. Awake alert and oriented x3. Patient is status post paracentesis ultrasound-guided with 6.1 L fluid removal. Patient was hypotensive postoperatively and was started pressor support. Patient was also given albumin. Blood cultures grew MSSA. Antibiotics changed to cefazolin. Vancomycin has been discontinued. Fluid cytology is negative for SBP. WBC count 23. Laboratory data showed WBC 9.0 hemoglobin 11.8 and platelets 134 Sodium 122 potassium 3.1 chloride 94 bicarb is 19 BUN 7 creatinine 0.63 and calcium 7.4. Pulmonary and ID and nephrology is on board. 09/22/2022 Patient is currently resting in the bed. Awake alert and oriented x3. No complaints of chest pain or worsening shortness of breath. Patient is off pressor support. Latham catheter has been discontinued. Patient was started on midodrine. Laboratory data showed sodium level increased to 127 potassium 3.6 chloride 97 blood sugar 105 and magnesium level increase it to 2.1. Albumin 2.8. Current medications reviewed. Objective - Vital Signs Vital signs: Vital Signs Temp 98.2 F 09/22/22 16:00 Pulse 101 H 09/22/22 17:00 Resp 20 09/22/22 17:00 BP 102/62 09/22/22 17:00 Pulse Ox 95 09/22/22 17:00 FiO2 Intake & Output 09/22/22 09/22/22 09/23/22 06:59 18:59 06:59 Intake Total 427.826 649.068 Output Total 1205 350 Balance -777.174 299.068 Intake: IV 240 230 0.9 KVO 240 130 ceFAZolin 2 gm In Sodium 100 Chloride 0.9% 50 ml @ 100 mls/hr IVPB Q8HR [facility] Rx# :[id number] Intake, IV Titration 187.826 19.068 Amount Magnesium Sulfate-D5w Pmx 100 1 gm In Dextrose/Water 1 100ml.bag @ 100 mls/hr IVPB Q1H [facility] Rx#: [id number] Norepinephrine 4 mg In 87.826 19.068 Sodium Chloride 0.9% 250 ml @ 0.03 MCG/KG/MIN 8. 172 mls/hr IV .Q24H [facility] Rx#:[id number] Oral 400 Output: Urine 1205 350 Other: Voiding Method Indwelling Catheter Indwelling Catheter # Voids 1 # Bowel Movements 1 - Exam PHYSICAL EXAMINATION: Patient is lying in the bed comfortably, no acute distress, awake alert and oriented.. HEENT: Normocephalic. Neck is supple. Pupils reactive. Nostrils clear. Oral cavity is moist. Neck reveals no JVD, carotid bruits, or thyromegaly. CHEST EXAMINATION: Trachea is central. Symmetrical expansion. Lung cervantes clear to auscultation and percussion. CARDIAC: Normal S1, S2 with no gallops. No murmurs ABDOMEN: Soft. Distended with ascites. Bowel sounds present. nontender. Extremities: Bilateral lower extremity trace edema. No clubbing or cyanosis Neurologically awake, alert, oriented x3 with well-coordinated movements. No focal deficits noted Skin: No rash or skin lesions. Psychiatric: Cooperative. Nonsuicidal Musculoskeletal: No joint swelling or deformity. Normal range of motion. - Labs CBC & Chem 7: 09/21/22 06:25 09/22/22 04:10 Labs: Abnormal Lab Results - Last 24 Hours (Table) 09/22/22 Range/Units 04:10 Sodium 127 L (137-145) mmol/L Chloride 97 L (98-107) mmol/L BUN 4 L (7-17) mg/dL Glucose 105 H (74-99) mg/dL Osmolality 263 L (280-301) mosm/kg Calcium 7.9 L (8.4-10.2) mg/dL Total Bilirubin 3.2 H (0.2-1.3) mg/dL Total Protein 5.0 L (6.3-8.2) g/dL Albumin 2.8 L (3.5-5.0) g/dL Microbiology - Last 24 Hours (Table) 09/20/22 09:09 Anaerobic Culture - Preliminary Paracentesis Fluid 09/20/22 09:09 Gram Stain - Preliminary Paracentesis Fluid Body Fluid Culture - Preliminary 09/20/22 06:00 Blood Culture - Preliminary Blood No Growth after 48 hours Assessment and Plan Assessment: De-Compensated alcoholic liver disease with possible cirrhosis with ascites and jaundice. s/ p paracentesis Post paracentesis hypotension. Status post albumin dose and also currently requiring pressor support. Hyponatremia, Hypervolemia and also related to alcohol use disorder Elevated lactic acid left foot cellulitis COPD, no acute exacerbation History of GERD Hypertension Hyperlipidemia History of rheumatoid arthritis COPD, GERD/Reflux, Hyperlipidemia, Hypertension, Liver Disease, Rheumatoid Arthritis (RA) Plan: Patient is status post paracentesis. off norepinephrine due to hypotension also albumin IV was given. Patient is being monitored in the MICU. Patient was started on midodrine Continue with Aldactone, torsemide Continue with home medication of Ultram when necessary Antibiotics changed to cefazolin as per ID recommendations. DVT prophylaxis: Subcutaneous heparin GI Prophylaxis: Ppi PT/OT: Pending Prognosis is guarded Time with Patient: Greater than 30
[2022-09-23] MEDS: MIDODRINE 5 MG TAB PO SCH ×3 (06:58→17:14)
[2022-09-23] MEDS: PANTOPRAZOLE 40 MG TABLET PO SCH (06:58)
[2022-09-23 07:41] LABS: African American GFR (CKD) >90 (>60 ml/min/1.73 sqM); Anion Gap 5 mmol/L; Basophils # (A) 0.1 k/uL (0-0.2); Basophils % (A) 1 %; Blood Urea Nitrogen 3 mg/dL (7-17); Calcium 7.7 mg/dL (8.4-10.2); Carbon Dioxide 24 mmol/L (22-30); Chloride 98 mmol/L (98-107); Eosinophils # (A) 0.1 k/uL (0-0.7); Eosinophils % (A) 1 %; Glucose 133 mg/dL (74-99); HGB 11.3 gm/dL (11.4-16.0); Lymphocytes # (A) 1.3 k/uL (1.0-4.8); Lymphocytes % (A) 17 %; MCH 35.2 pg (25.0-35.0); MCHC 34.3 g/dL (31.0-37.0); MCV 102.9 fL (80.0-100.0); Macrocytosis Moderate; Mean Platelet Volume 8.3; Monocytes # (A) 0.4 k/uL (0-1.0); Monocytes % (A) 5 %; Neutrophils # (A) 5.7 k/uL (1.3-7.7); Neutrophils % (A) 74 %; Non-African American GFR(CKD) >90 (>60 ml/min/1.73 sqM); Platelet Count 132 k/uL (150-450); Potassium 3.4 mmol/L (3.5-5.1); RBC 3.21 m/uL (3.80-5.40); RDW 15.5 % (11.5-15.5); Sodium 127 mmol/L (137-145); WBC 7.8 k/uL (3.8-10.6)
[2022-09-23] MEDS: SPIRONOLACTONE 25 MG TAB PO SCH (11:05)
[2022-09-23] MEDS: MULTIVITAMINS, THERA 1 EACH TAB PO SCH (11:05)
[2022-09-23] MEDS: HEPARIN SODIUM,PORCINE/PF 5,000 UNIT/0.5 ML SYRINGE SQ SCH ×2 (11:05→21:07)
[2022-09-23] MEDS: CYANOCOBALAMIN 500 MCG TAB PO SCH (11:05)
[2022-09-23] MEDS: FOLIC ACID 1 MG TAB PO SCH (11:05)
[2022-09-23] MEDS: TORSEMIDE 20 MG TAB PO SCH (11:06)
--- NOTE | 2022-09-23 11:29 | P.PN ---
Subjective Progress Note Date: 09/16/22 Principal diagnosis: worsening ascites This is a 71-year-old female with history of multiple medical problems, however she mostly has severe alcohol related liver disease and liver cirrhosis. Patient is familiar to our service, she had been frequently admitted to the hospital for the last few months, and she normally comes in with worsening abdominal ascites and increased abdominal girth associated with some shortness of breath. Patient was admitted yesterday with similar complaints, patient has been noticing increase in the size of her abdomen, and she is retaining fluids. She is also complaining of slight shortness of breath, but no cough no wheezing no chest pain no fever no chills no hemoptysis no melena no hematemesis, no nausea or vomiting. Patient is being treated on outpatient basis for a chronic left foot ulcer with ongoing discharge from the ulcer. She was last discharged from the hospital on 07/16 after she was in the hospital for almost 3 weeks, tr eated at the time for alcohol liver hepatitis and left foot infection underwent paracentesis 2 this time the patient was noted to be mostly hyponatremic with significant ascites. Patient was admitted to the ICU, and this consult was initiated. Patient was seen by nephrology on consultation, did not feel the need for hypertonic saline, she is now on normal saline, and repeat sodium is pending patient is receiving empirically antibiotics in the form of Unasyn for her ascites although clinically I don't believe the patient has spontaneous bacterial peritonitis at this point but nonetheless we'll continue the antibiotics for now. Ultrasound of the abdomen showed ascites/large ascites. Nephrology felt that her hyponatremia is associated with her liver cirrhosis, patient had no previous improvement with saline, and she received Samsca during her last hospitalization. Patient is also receiving antibiotics for her left foot wound infection Reevaluated today on 09/20/22, patient remains in the ICU, she is doing fairly well, her sodium is back down to 118 from 123 yesterday, patient is being followed by nephrology, and she is now on sodium chloride tablets. She is scheduled to undergo paracentesis today at 9 AM, and she will receive at least 1 unit of fresh frozen plasma before her procedure since her INR is elevated.WBC count today 6.3 hemoglobin is 11, sodium is 118 INR is 2.0, chest x-ray showed left basilar subsegmental atelectasis, small tiny pleural effusion, and findings of COPD. Reevaluated today on 09/21/22, patient underwent paracentesis, and just over 6 L of fluid was drained from her abdominal cavity. Postoperatively the patient developed hypotension, she received albumin, did not improve much, I was notified about this patient and I recommended a low-dose norepinephrine. She is still receiving norepinephrine at 0.1 mcg/kg/m, patient remains on vancomycin and Unasyn, however her wound culture is positive for MSSA, and I believe the patient could be transitioned to cefazolin, she is being followed by infectious disease, and I will let infectious disease decided on antibiotics. Her Gram stain from the peritoneal fluid is negative, doubt spontaneous bacterial peritonitis. Clinically the patient is doing well except for a relatively low blood pressure. Labs today were noted, CBC is relatively normal potassium is low at 3.1, and sodium is 122. Reevaluated today on 09/18/22, patient is off norepinephrine, she is doing well, her sodium is up to 127, hence I will arrange for the patient to transfer out of the ICU, she should even be considered to be discharged home. Patient is on room air, she is not in any distress, and she is not requiring any IV drips at this point. Reevaluated today on 09/23/22, patient is doing well, remains off norep inephrine, patient is on room air, she is not in any distress, sodium is up to 127. Electrolytes are otherwise unremarkable. CBC is normal. And I believe the patient could be considered for Objective - Vital Signs Vital signs: Vital Signs Temp 98.0 F 09/23/22 08:00 Pulse 72 09/23/22 08:00 Resp 17 09/23/22 08:00 BP 101/54 09/23/22 08:00 Pulse Ox 96 09/23/22 08:00 FiO2 Intake & Output 09/22/22 09/23/22 09/23/22 18:59 06:59 18:59 Intake Total 649.068 10 Output Total 350 Balance 299.068 10 Intake: IV 230 10 0.9 KVO 130 10 ceFAZolin 2 gm In Sodium 100 Chloride 0.9% 50 ml @ 100 mls/hr IVPB Q8HR [facility] Rx# :[id number] Intake, IV Titration 19.068 Amount Norepinephrine 4 mg In 19.068 Sodium Chloride 0.9% 250 ml @ 0.03 MCG/KG/MIN 8. 172 mls/hr IV .Q24H [facility] Rx#:[id number] Oral 400 Output: Urine 350 Other: Voiding Method Indwelling Catheter # Voids 1 1 # Bowel Movements 1 - Exam General appearance: revealed 71-year-old female in no distress.on room air. HET: Head is normocephalic and atraumatic. Conjunctiva pink. Sclera anicteric. Neck: Supple without lymphadenopathy. Trachea midline. Heart:normal S1 and S2, no S3 gallop. Lungs: symmetrical chest expansion, clear throughout no crackles or rhonchi or wheezes Abdomen: Less ascites noted today on physical examination, no rebound no guarding. Skin: No rashes. Extremities: no clubbing edema or cyanosis. Neurological: alert oriented 3 focal deficits - Labs CBC & Chem 7: 09/23/22 07:08 09/23/22 07:08 Labs: Abnormal Lab Results - Last 24 Hours (Table) 09/23/22 09/23/22 Range/Units 07:08 07:08 RBC 3.21 L (3.80-5.40) m/uL Hgb 11.3 L (11.4-16.0) gm/dL Hct 33.0 L (34.0-46.0) % MCV 102.9 H (80.0-100.0) fL MCH 35.2 H (25.0-35.0) pg Plt Count 132 L (150-450) k/uL Sodium 127 L (137-145) mmol/L Potassium 3.4 L (3.5-5.1) mmol/L BUN 3 L (7-17) mg/dL Glucose 133 H (74-99) mg/dL Calcium 7.7 L (8.4-10.2) mg/dL Microbiology - Last 24 Hours (Table) 09/18/22 16:05 Blood Culture Gram Stain - Final Blood Blood Culture - Final Staph schleiferi SS coagulans 09/18/22 16:20 Blood Culture Gram Stain - Final Blood Blood Culture - Final Coagulase Negative Staph 09/20/22 09:09 Gram Stain - Preliminary Paracentesis Fluid Body Fluid Culture - Preliminary 09/20/22 06:00 Blood Culture - Preliminary Blood No Growth after 72 hours 09/20/22 09:09 Anaerobic Culture - Preliminary Paracentesis Fluid Assessment and Plan Assessment: Impression: Hyponatremia secondary to excessive alcohol use, poor salt intake, and excessive fluid intake. History of alcoholism Ascites secondary to liver cirrhosis, recurrent status post paracentesis, and over 6 L of fluid drained. Post paracentesis hypotension, expected mostly because of the large volume drained from the abdomen. We will continue norepinephrine for now, patient did receive albumin. No need for further albumin infusions Benign essential hypertension History of rheumatoid arthritis Lactic acidosis secondary to chronic alcoholism and liver dysfunction. Foot cellulitis secondary to MSSA, could be treated with cefazolin instead of vancomycin and Unasyn, infectious disease will likely address this today Recommendation: transfer patient out of the ICU to regular medical floor Antibiotics for foot cellulitis to be given orally continue CIWA protocol GI and DVT prophylaxis Will clear for discharge home if cleared by other consultants Time with Patient: Less than 30
--- NOTE | 2022-09-23 12:42 | P.PN ---
Subjective Progress Note Date: 09/23/22 Principal diagnosis: This is 71-year-old female seen in consultation because of hyponatremia. This is deemed to be from intravascular 1 depletion in a patient with chronically prem er disease associated with alcohol abuse. She has cirrhosis. She has had DONE. Also has a chronic on her left foot. She was given Samsca yesterday. She has fair appetite but does not like the food here no nausea vomiting diarrhea. No abdominal pain no chest pain shortness of breath Objective - Vital Signs Vital signs: Vital Signs Temp 98.0 F 09/23/22 08:00 Pulse 72 09/23/22 08:00 Resp 17 09/23/22 08:00 BP 101/54 09/23/22 08:00 Pulse Ox 96 09/23/22 08:00 FiO2 Intake & Output 09/22/22 09/23/22 09/23/22 18:59 06:59 18:59 Intake Total 649.068 10 Output Total 350 Balance 299.068 10 Intake: IV 230 10 0.9 KVO 130 10 ceFAZolin 2 gm In Sodium 100 Chloride 0.9% 50 ml @ 100 mls/hr IVPB Q8HR [facility] Rx# :[id number] Intake, IV Titration 19.068 Amount Norepinephrine 4 mg In 19.068 Sodium Chloride 0.9% 250 ml @ 0.03 MCG/KG/MIN 8. 172 mls/hr IV .Q24H [facility] Rx#:[id number] Oral 400 Output: Urine 350 Other: Voiding Method Indwelling Catheter # Voids 1 1 # Bowel Movements 1 On examination she is awake alert oriented comfortable Lungs are clear to auscultation good air entry bilaterally Heart sounds unremarkable Abdomen soft nondistended mild ascites at the most Extremity examination reveals no edema Neurologically awake alert oriented - Labs CBC & Chem 7: 09/23/22 07:08 09/23/22 07:08 Labs: Abnormal Lab Results - Last 24 Hours (Table) 09/23/22 09/23/22 Range/Units 07:08 07:08 RBC 3.21 L (3.80-5.40) m/uL Hgb 11.3 L (11.4-16.0) gm/dL Hct 33.0 L (34.0-46.0) % MCV 102.9 H (80.0-100.0) fL MCH 35.2 H (25.0-35.0) pg Plt Count 132 L (150-450) k/uL Sodium 127 L (137-145) mmol/L Potassium 3.4 L (3.5-5.1) mmol/L BUN 3 L (7-17) mg/dL Glucose 133 H (74-99) mg/dL Calcium 7.7 L (8.4-10.2) mg/dL Microbiology - Last 24 Hours (Table) 09/18/22 16:05 Blood Culture Gram Stain - Final Blood Blood Culture - Final Staph schleiferi SS coagulans 09/18/22 16:20 Blood Culture Gram Stain - Final Blood Blood Culture - Final Coagulase Negative Staph 09/20/22 09:09 Gram Stain - Preliminary Paracentesis Fluid Body Fluid Culture - Preliminary 09/20/22 06:00 Blood Culture - Preliminary Blood No Growth after 72 hours 09/20/22 09:09 Anaerobic Culture - Preliminary Paracentesis Fluid Assessment and Plan Assessment: Present 1. Hyponatremia secondary to intravascular volume depletion in a patient with cirrhosis. With Samsca sodium is improved to 127 as of this morning and 2. Mild degree of hypo-kalemia potassium is 3.4 from GI losses likely from the lactulose. 3. Alcohol excess cirrhosis 4. On torsemide 20 mg a day Recommendation 1. Hold the torsemide and maintain the spironolactone and will assess tomorrow.
--- NOTE | 2022-09-23 14:00 | P.PN ---
Subjective Progress Note Date: 09/23/22 Principal diagnosis: left foot wound and a positive blood culture Patient is a 71 year female with multiple comorbidity patient did have alcohol liver disease/cirrhosis with multiple admission to the hospital for ascites and requiring paracentesis last admission was back in June with the patient did require paracentesis 2 during that admission patient also develop swelling to the left foot area patient did have a CT of the foot that was suggestive mostly hematoma no evidence of any abscess , patient presented to hospital with abdominal distention worsening ascites and need for paracentesis she did have a positive blood culture and a nonhealing wound to the left foot with a positive culture on today's evaluation that is 09/23/2022, the patient continues to be afebrile, the patient is breathing comfortably on room air. The patient denies having any chest pain or shortness of breath , the patient denies nausea or vomiting, abdominal discomfort has decreased in intensity, the patient denies any pain to the left foot Objective - Vital Signs Vital signs: Vital Signs Temp 98.0 F 09/23/22 08:00 Pulse 77 09/23/22 12:00 Resp 16 09/23/22 12:00 BP 93/55 09/23/22 12:00 Pulse Ox 97 09/23/22 12:00 FiO2 Intake & Output 09/22/22 09/23/22 09/23/22 18:59 06:59 18:59 Intake Total 649.068 10 Output Total 350 Balance 299.068 10 Intake: IV 230 10 0.9 KVO 130 10 ceFAZolin 2 gm In Sodium 100 Chloride 0.9% 50 ml @ 100 mls/hr IVPB Q8HR [facility] Rx# :[id number] Intake, IV Titration 19.068 Amount Norepinephrine 4 mg In 19.068 Sodium Chloride 0.9% 250 ml @ 0.03 MCG/KG/MIN 8. 172 mls/hr IV .Q24H [facility] Rx#:[id number] Oral 400 Output: Urine 350 Other: Voiding Method Indwelling Catheter # Voids 1 1 # Bowel Movements 1 - Exam GENERAL DESCRIPTION: An elderly female lying in bed in no distress RESPIRATORY SYSTEM: Unlabored breathing , decreased breath sounds at bases HEART: S1 S2 regular rate and rhythm , ABDOMEN: Soft , no tenderness EXTREMITIES: left foot dorsum wound is currently dressed no drainage on the dressing - Labs CBC & Chem 7: 09/23/22 07:08 09/23/22 07:08 Labs: Abnormal Lab Results - Last 24 Hours (Table) 09/23/22 09/23/22 Range/Units 07:08 07:08 RBC 3.21 L (3.80-5.40) m/uL Hgb 11.3 L (11.4-16.0) gm/dL Hct 33.0 L (34.0-46.0) % MCV 102.9 H (80.0-100.0) fL MCH 35.2 H (25.0-35.0) pg Plt Count 132 L (150-450) k/uL Sodium 127 L (137-145) mmol/L Potassium 3.4 L (3.5-5.1) mmol/L BUN 3 L (7-17) mg/dL Glucose 133 H (74-99) mg/dL Calcium 7.7 L (8.4-10.2) mg/dL Microbiology - Last 24 Hours (Table) 09/18/22 16:05 Blood Culture Gram Stain - Final Blood Blood Culture - Final Staph schleiferi SS coagulans 09/18/22 16:20 Blood Culture Gram Stain - Final Blood Blood Culture - Final Coagulase Negative Staph 09/20/22 09:09 Gram Stain - Preliminary Paracentesis Fluid Body Fluid Culture - Preliminary 09/20/22 06:00 Blood Culture - Preliminary Blood No Growth after 72 hours 09/20/22 09:09 Anaerobic Culture - Preliminary Paracentesis Fluid Assessment and Plan (1) Bacteremia Current Visit: Yes Status: Acute Code(s): R78.81 - BACTEREMIA SNOMED Code(s): 2557625 (2) Wound of left foot Current Visit: Yes Status: Acute Code(s): S91.302A - UNSPECIFIED OPEN WOUND, LEFT FOOT, INITIAL ENCOUNTER SNOMED Code(s): 679321800 Plan: 1patient with positive blood culture finalized as coagulase negative staph likely skin contamination, blood culture has been repeated on 09/20/2022 and they have been negative so for 2patient with a nonhealing wound on the dorsum aspect of the left foot with a culture grew MSSA 3Patient to continue with cefazolin 2 g every 8 hours and apply protective dressing to the left foot with a plan to finish therapy with oral Keflex Time with Patient: Less than 30
[2022-09-23] MEDS: traMADol 50 MG TAB PO PRN (17:58)
[2022-09-23] MEDS ORDERED: ONDANSETRON 4 MG/2 ML VIAL IVP STA (18:02)
[2022-09-23] MEDS: MORPHINE SULFATE 2 MG/ML SYRINGE IVP PRN (21:08)
--- NOTE | 2022-09-24 08:42 | P.PN ---
Subjective Progress Note Date: 09/24/22 Principal diagnosis: This is 71-year-old female seen in consultation because of chronic hyponatremia. This is deemed to be from intravascular volume depletion in a patient with ch ronically liver disease associated with alcohol abuse. She has cirrhosis. Also has a chronic ulcer on her left foot. She was given Samsca on 09/23/2022 day before yesterday. She says she had some nausea and vomiting. Minimal abdominal discomfort. No shortness of breath or chest pain. No fever chills. Vital signs blood pressure is somewhat low in the 90s systolic with 70s to 50s diastolic. Afebrile. Urine output is documented at 1700 mL. Objective - Vital Signs Vital signs: Vital Signs Temp 97.9 F 09/24/22 04:00 Pulse 86 09/23/22 16:00 Resp 19 09/24/22 04:00 BP 90/78 09/24/22 04:00 Pulse Ox 94 L 09/24/22 04:00 FiO2 Intake & Output 09/23/22 09/24/22 09/24/22 18:59 06:59 18:59 Intake Total 1180 580 Output Total 1100 600 Balance 80 -20 Intake: IV 180 100 0.9 KVO 80 ceFAZolin 2 gm In Sodium 100 100 Chloride 0.9% 50 ml @ 100 mls/hr IVPB Q8HR [facility] Rx# :[id number] Oral 1000 480 Output: Urine 1100 600 Other: Voiding Method External Catheter Awake alert seems to be oriented 3 No facial asymmetry noted Lungs are clear but diminished at bases Heart sounds unremarkable normal sinus rhythm Abdomen slightly distended minimally tender Extreme exam reveals no edema. She has a left foot ulcer with bandages on. Awake alert oriented no asterixis. - Labs CBC & Chem 7: 09/23/22 07:08 09/23/22 07:08 Labs: Microbiology - Last 24 Hours (Table) 09/20/22 06:00 Blood Culture - Preliminary Blood No Growth after 96 hours 09/18/22 16:05 Blood Culture Gram Stain - Final Blood Blood Culture - Final Staph schleiferi SS coagulans 09/18/22 16:20 Blood Culture Gram Stain - Final Blood Blood Culture - Final Coagulase Negative Staph 09/20/22 09:09 Gram Stain - Preliminary Paracentesis Fluid Body Fluid Culture - Preliminary Assessment and Plan Assessment: Present 1. Hyponatremia secondary to intravascular volume depletion in a patient with cirrhosis. With Samsca sodium is improved to 127 as of yesterday. Last today are pending patient is on spironolactone torsemide was discontinued yesterday 2. Mild degree of hypo-kalemia potassium is 3.4 from GI losses likely from the lactulose. Today's labs are pending 3. Alcoholic cirrhosis, with ascites 4. Left foot ulcer Recommendation 1. Continue to Hold the torsemide and maintain the spironolactone and will assess his on Lasix today and tomorrow.
[2022-09-24] MEDS: MIDODRINE 5 MG TAB PO SCH ×3 (09:10→15:38)
[2022-09-24] MEDS: CYANOCOBALAMIN 500 MCG TAB PO SCH (09:10)
[2022-09-24] MEDS: SPIRONOLACTONE 25 MG TAB PO SCH (09:10)
[2022-09-24] MEDS: PANTOPRAZOLE 40 MG TABLET PO SCH (09:10)
[2022-09-24] MEDS: FOLIC ACID 1 MG TAB PO SCH (09:10)
[2022-09-24] MEDS: MULTIVITAMINS, THERA 1 EACH TAB PO SCH (09:10)
[2022-09-24 09:11] LABS: Basophils # (A) 0.1 k/uL (0-0.2); Basophils % (A) 1 %; Eosinophils # (A) 0.2 k/uL (0-0.7); Eosinophils % (A) 2 %; HCT 33.8 % (34.0-46.0); HGB 11.4 gm/dL (11.4-16.0); Lymphocytes # (A) 1.5 k/uL (1.0-4.8); Lymphocytes % (A) 16 %; MCH 34.5 pg (25.0-35.0); MCHC 33.6 g/dL (31.0-37.0); MCV 102.5 fL (80.0-100.0); Macrocytosis Slight; Mean Platelet Volume 8.3; Monocytes # (A) 0.7 k/uL (0-1.0); Monocytes % (A) 8 %; Neutrophils # (A) 6.7 k/uL (1.3-7.7); Neutrophils % (A) 70 %; Platelet Count 135 k/uL (150-450); RDW 15.4 % (11.5-15.5); WBC 9.6 k/uL (3.8-10.6)
[2022-09-24] MEDS: HEPARIN SODIUM,PORCINE/PF 5,000 UNIT/0.5 ML SYRINGE SQ SCH ×2 (09:11→20:09)
[2022-09-24 09:22] LABS: ALT 14 U/L (4-34); AST 39 U/L (14-36); African American GFR (CKD) >90 (>60 ml/min/1.73 sqM); Albumin 2.6 g/dL (3.5-5.0); Alkaline Phosphatase 91 U/L (38-126); Anion Gap 6 mmol/L; Blood Urea Nitrogen 3 mg/dL (7-17); Calcium 7.4 mg/dL (8.4-10.2); Carbon Dioxide 25 mmol/L (22-30); Chloride 94 mmol/L (98-107); Glucose 116 mg/dL (74-99); Magnesium 1.2 mg/dL (1.6-2.3); Non-African American GFR(CKD) 89 (>60 ml/min/1.73 sqM); Potassium 3.3 mmol/L (3.5-5.1); Sodium 125 mmol/L (137-145); Total Bilirubin 2.8 mg/dL (0.2-1.3); Total Protein 4.9 g/dL (6.3-8.2)
[2022-09-24] MEDS: METOPROLOL TARTRATE 12.5 MG TAB PO SCH ×2 (11:30→21:52)
[2022-09-24] MEDS: POTASSIUM CHLORIDE ER 20 MEQ TAB.ER PO SCH ×3 (12:25→17:48)
[2022-09-24] MEDS: MAGNESIUM SULFATE-D5W PMX 1 GM in DEXTROSE/WATER 1 100ML.BAG IVPB SCH ×3 (12:25→14:25)
--- NOTE | 2022-09-24 13:53 | P.PN ---
Subjective Progress Note Date: 09/24/22 Principal diagnosis: left foot wound and a positive blood culture Patient is a 71 year female with multiple comorbidity patient did have alcohol liver disease/cirrhosis with multiple admission to the hospital for ascites and requiring paracentesis last admission was back in June with the patient did require paracentesis 2 during that admission patient also develop swelling to the left foot area patient did have a CT of the foot that was suggestive mostly hematoma no evidence of any abscess , patient presented to hospital with abdominal distention worsening ascites and need for paracentesis she did have a positive blood culture and a nonhealing wound to the left foot with a positive culture on today's evaluation that is 09/24/2022, the patient remains to be afebrile, the patient is breathing comfortably on room air. The patient denies having any chest pain or shortness of breath , the patient denies nausea or vomiting, the patient abdominal discomfort has decreased in intensity, the patient denies any pain to the left foot or any worsening drainage Objective - Vital Signs Vital signs: Vital Signs Temp 98.6 F 09/24/22 08:00 Pulse 86 09/23/22 16:00 Resp 20 09/24/22 08:00 BP 91/60 09/24/22 08:00 Pulse Ox 94 L 09/24/22 08:00 FiO2 Intake & Output 09/23/22 09/24/22 09/24/22 18:59 06:59 18:59 Intake Total 1180 580 Output Total 1100 600 Balance 80 -20 Intake: IV 180 100 0.9 KVO 80 ceFAZolin 2 gm In Sodium 100 100 Chloride 0.9% 50 ml @ 100 mls/hr IVPB Q8HR [facility] Rx# :[id number] Oral 1000 480 Output: Urine 1100 600 Other: Voiding Method External Catheter - Exam GENERAL DESCRIPTION: An elderly female lying in bed in no distress RESPIRATORY SYSTEM: Unlabored breathing , decreased breath sounds at bases HEART: S1 S2 regular rate and rhythm , ABDOMEN: Soft , no tenderness EXTREMITIES: left foot dorsum wound with minimal purulent drainage - Labs CBC & Chem 7: 09/24/22 08:30 09/24/22 08:30 Labs: Abnormal Lab Results - Last 24 Hours (Table) 09/24/22 09/24/22 Range/Units 08:30 08:30 RBC 3.30 L (3.80-5.40) m/uL Hct 33.8 L (34.0-46.0) % MCV 102.5 H (80.0-100.0) fL Plt Count 135 L (150-450) k/uL Sodium 125 L (137-145) mmol/L Potassium 3.3 L (3.5-5.1) mmol/L Chloride 94 L (98-107) mmol/L BUN 3 L (7-17) mg/dL Glucose 116 H (74-99) mg/dL Calcium 7.4 L (8.4-10.2) mg/dL Magnesium 1.2 L (1.6-2.3) mg/dL Total Bilirubin 2.8 H (0.2-1.3) mg/dL AST 39 H (14-36) U/L Total Protein 4.9 L (6.3-8.2) g/dL Albumin 2.6 L (3.5-5.0) g/dL Microbiology - Last 24 Hours (Table) 09/20/22 09:09 Anaerobic Culture - Final Paracentesis Fluid 09/20/22 09:09 Gram Stain - Final Paracentesis Fluid Body Fluid Culture - Final 09/20/22 06:00 Blood Culture - Preliminary Blood No Growth after 96 hours 09/18/22 16:05 Blood Culture Gram Stain - Final Blood Blood Culture - Final Staph schleiferi SS coagulans 09/18/22 16:20 Blood Culture Gram Stain - Final Blood Blood Culture - Final Coagulase Negative Staph Assessment and Plan (1) Bacteremia Current Visit: Yes Status: Acute Code(s): R78.81 - BACTEREMIA SNOMED Code(s): 8668297 (2) Wound of left foot Current Visit: Yes Status: Acute Code(s): S91.302A - UNSPECIFIED OPEN WOUND, LEFT FOOT, INITIAL ENCOUNTER SNOMED Code(s): 774723999 Plan: 1patient with positive blood culture finalized as coagulase negative staph likely skin contamination, blood culture has been repeated on 09/20/2022 and they have been negative so for 2patient with a nonhealing wound on the dorsum aspect of the left foot with a culture grew MSSA 3Patient to continue with cefazolin 2 g every 8 hours and will switch local wound care to dry Aquacel silver dressing change daily Time with Patient: Less than 30
[2022-09-24 14:39] VITALS: BMI 25.4
[2022-09-24 17:29] LABS: Magnesium 2.2 mg/dL (1.6-2.3); Potassium 3.2 mmol/L (3.5-5.1)
[2022-09-24] MEDS ORDERED: TOLVAPTAN 30 MG TABLET PO STA (20:23)
[2022-09-24] MEDS: MORPHINE SULFATE 2 MG/ML SYRINGE IVP PRN (22:32)
--- NOTE | 2022-09-25 00:30 | P.PN ---
Subjective Progress Note Date: 09/23/22 Pleasant 71 years old female with multiple medical problems as below. Presents because of c/o swelling to abdomen with short of breath hx liver cirrohsis lung sounds crackles bilat jaundice eye with wound to left foot. She comes because of abdominal distention and some little dyspnea, no significant chest pain, no coughing, she has some mild periumbilical abdominal pain for the last 10 days, nonspecific, nonradiating She denies any headache dizziness or weakness or numbness, no urinary complaints. No vomiting or diarrhea. Also patient is awake and alert to place and person but she is disoriented to time, she thought she came to the hospital 1 week ago but actually she came last night. Patient was updated Patient also she has a chronic ulcer in her left foot and there is still some discharge but there is no surrounding cellulitis and x-ray looks negative. Patient was recently discharged from this hospital 06/10-07/16 for alcoholic liver hepatitis and left foot infection and she underwent paracentesis 2. Also she had hypernatremia 106 went up to 125 open discharge Currently presents also with abdominal distention and shortness of breath. She denies a smoking or illicit drugs, first she told me she drinks wine only one cup twice a month but then when I ask her more she said last week she drink twice however she denies daily drinking of alcohol. At baseline she walks with a walker Vitals looks stable, afebrile Sodium 117-118 on admission. Lactic acid elevated 4.1, currently 2.3. Bilirubin elevated 4.9-6.2, last time she was discharged on bilirubin of 3.6 and on 08/14/2022 was 5.7 Mildly elevated liver enzymes, AST 4.9, ALT normal 24. Urine osmolality is 291 Serum alcohol: Less than 10 Foot x-ray showing no fracture dislocation In the emergency room she received Unasyn, ceftriaxone 1 and placed on normal saline 75 mL/h with nephrology been consulted 09/21/2022 Patient is currently in the MICU. Lying in the bed. Awake alert and oriented x3. Patient is status post paracentesis ultrasound-guided with 6.1 L fluid removal. Patient was hypotensive postoperatively and was started pressor support. Patient was also given albumin. Blood cultures grew MSSA. Antibiotics changed to cefazolin. Vancomycin has been discontinued. Fluid cytology is negative for SBP. WBC count 23. Laboratory data showed WBC 9.0 hemoglobin 11.8 and platelets 134 Sodium 122 potassium 3.1 chloride 94 bicarb is 19 BUN 7 creatinine 0.63 and calcium 7.4. Pulmonary and ID and nephrology is on board. 09/22/2022 Patient is currently resting in the bed. Awake alert and oriented x3. No complaints of chest pain or worsening shortness of breath. Patient is off pressor support. Latham catheter has been discontinued. Patient was started on midodrine. Laboratory data showed sodium level increased to 127 potassium 3.6 chloride 97 blood sugar 105 and magnesium level increase it to 2.1. Albumin 2.8. 09/23/2022 Patient in the MICU and awaiting to be transferred to telemetry unit. Patient is resting in bed. Awake alert and oriented. No complaints of chest pain or worsening shortness of breath. Nausea vomiting abdominal pain. Patient was tachycardic last night and was having PVCs. Patient was started on low-dose beta-yoana. Heart rate is better controlled Blood pressure is stable and is on midodrine. Headache or dizziness or lightheadedness. Patient is being current antibiotics and follow-up cefazolin for foot infection. Current medications reviewed. Objective - Vital Signs Vital signs: Vital Signs Temp 97.9 F 09/23/22 16:00 Pulse 86 09/23/22 16:00 Resp 16 09/23/22 16:00 BP 93/66 09/23/22 16:00 Pulse Ox 96 09/23/22 16:00 FiO2 Intake & Output 09/23/22 09/23/22 09/24/22 06:59 18:59 06:59 Intake Total 10 1180 Output Total 1100 Balance 10 80 Intake: IV 10 180 0.9 KVO 10 80 ceFAZolin 2 gm In Sodium 100 Chloride 0.9% 50 ml @ 100 mls/hr IVPB Q8HR [facility] Rx# :[id number] Oral 1000 Output: Urine 1100 Other: # Voids 1 # Bowel Movements 1 - Exam PHYSICAL EXAMINATION: Patient is lying in the bed comfortably, no acute distress, awake alert and oriented.. HEENT: Normocephalic. Neck is supple. Pupils reactive. Nostrils clear. Oral cavity is moist. Neck reveals no JVD, carotid bruits, or thyromegaly. CHEST EXAMINATION: Trachea is central. Symmetrical expansion. Lung cervantes clear to auscultation and percussion. CARDIAC: Normal S1, S2 with no gallops. No murmurs ABDOMEN: Soft. Distended with ascites. Bowel sounds present. nontender. Extremities: Bilateral lower extremity trace edema. No clubbing or cyanosis Neurologically awake, alert, oriented x3 with well-coordinated movements. No focal deficits noted Skin: No rash or skin lesions. Psychiatric: Cooperative. Nonsuicidal Musculoskeletal: No joint swelling or deformity. Normal range of motion. - Labs CBC & Chem 7: 09/24/22 08:30 09/24/22 20:50 Labs: Abnormal Lab Results - Last 24 Hours (Table) 09/23/22 09/23/22 Range/Units 07:08 07:08 RBC 3.21 L (3.80-5.40) m/uL Hgb 11.3 L (11.4-16.0) gm/dL Hct 33.0 L (34.0-46.0) % MCV 102.9 H (80.0-100.0) fL MCH 35.2 H (25.0-35.0) pg Plt Count 132 L (150-450) k/uL Sodium 127 L (137-145) mmol/L Potassium 3.4 L (3.5-5.1) mmol/L BUN 3 L (7-17) mg/dL Glucose 133 H (74-99) mg/dL Calcium 7.7 L (8.4-10.2) mg/dL Microbiology - Last 24 Hours (Table) 09/18/22 16:05 Blood Culture Gram Stain - Final Blood Blood Culture - Final Staph schleiferi SS coagulans 09/18/22 16:20 Blood Culture Gram Stain - Final Blood Blood Culture - Final Coagulase Negative Staph 09/20/22 09:09 Gram Stain - Preliminary Paracentesis Fluid Body Fluid Culture - Preliminary 09/20/22 06:00 Blood Culture - Preliminary Blood No Growth after 72 hours Assessment and Plan Assessment: De-Compensated alcoholic liver disease with possible cirrhosis with ascites and jaundice. s/ p paracentesis Post paracentesis hypotension. Status post albumin dose and also currently requiring pressor support. Hyponatremia, Hypervolemia and also related to alcohol use disorder Elevated lactic acid left foot cellulitis COPD, no acute exacerbation History of GERD Hypertension Hyperlipidemia History of rheumatoid arthritis COPD, GERD/Reflux, Hyperlipidemia, Hypertension, Liver Disease, Rheumatoid Arthritis (RA) Plan: Patient is status post paracentesis. off norepinephrine due to hypotension also albumin IV was given. Patient is being monitored in the MICU. Patient was started on midodrine Continue with Aldactone, torsemide Continue with home medication of Ultram when necessary Antibiotics changed to cefazolin as per ID recommendations. DVT prophylaxis: Subcutaneous heparin GI Prophylaxis: Ppi PT/OT: Pending Prognosis is guarded Time with Patient: Greater than 30
--- NOTE | 2022-09-25 00:33 | P.PN ---
Subjective Progress Note Date: 09/24/22 Pleasant 71 years old female with multiple medical problems as below. Presents because of c/o swelling to abdomen with short of breath hx liver cirrohsis lung sounds crackles bilat jaundice eye with wound to left foot. She comes because of abdominal distention and some little dyspnea, no significant chest pain, no coughing, she has some mild periumbilical abdominal pain for the last 10 days, nonspecific, nonradiating She denies any headache dizziness or weakness or numbness, no urinary complaints. No vomiting or diarrhea. Also patient is awake and alert to place and person but she is disoriented to time, she thought she came to the hospital 1 week ago but actually she came last night. Patient was updated Patient also she has a chronic ulcer in her left foot and there is still some discharge but there is no surrounding cellulitis and x-ray looks negative. Patient was recently discharged from this hospital 06/10-07/16 for alcoholic liver hepatitis and left foot infection and she underwent paracentesis 2. Also she had hypernatremia 106 went up to 125 open discharge Currently presents also with abdominal distention and shortness of breath. She denies a smoking or illicit drugs, first she told me she drinks wine only one cup twice a month but then when I ask her more she said last week she drink twice however she denies daily drinking of alcohol. At baseline she walks with a walker Vitals looks stable, afebrile Sodium 117-118 on admission. Lactic acid elevated 4.1, currently 2.3. Bilirubin elevated 4.9-6.2, last time she was discharged on bilirubin of 3.6 and on 08/14/2022 was 5.7 Mildly elevated liver enzymes, AST 4.9, ALT normal 24. Urine osmolality is 291 Serum alcohol: Less than 10 Foot x-ray showing no fracture dislocation In the emergency room she received Unasyn, ceftriaxone 1 and placed on normal saline 75 mL/h with nephrology been consulted 09/21/2022 Patient is currently in the MICU. Lying in the bed. Awake alert and oriented x3. Patient is status post paracentesis ultrasound-guided with 6.1 L fluid removal. Patient was hypotensive postoperatively and was started pressor support. Patient was also given albumin. Blood cultures grew MSSA. Antibiotics changed to cefazolin. Vancomycin has been discontinued. Fluid cytology is negative for SBP. WBC count 23. Laboratory data showed WBC 9.0 hemoglobin 11.8 and platelets 134 Sodium 122 potassium 3.1 chloride 94 bicarb is 19 BUN 7 creatinine 0.63 and calcium 7.4. Pulmonary and ID and nephrology is on board. 09/22/2022 Patient is currently resting in the bed. Awake alert and oriented x3. No complaints of chest pain or worsening shortness of breath. Patient is off pressor support. Latham catheter has been discontinued. Patient was started on midodrine. Laboratory data showed sodium level increased to 127 potassium 3.6 chloride 97 blood sugar 105 and magnesium level increase it to 2.1. Albumin 2.8. 09/23/2022 Patient in the MICU and awaiting to be transferred to telemetry unit. Patient is resting in bed. Awake alert and oriented. No complaints of chest pain or worsening shortness of breath. Nausea vomiting abdominal pain. Patient was tachycardic last night and was having PVCs. Patient was started on low-dose beta-yoana. Heart rate is better controlled Blood pressure is stable and is on midodrine. Headache or dizziness or lightheadedness. Patient is being current antibiotics and follow-up cefazolin for foot infection. 09/24/2022 Patient is currently resting in bed. Awake alert and oriented x3. No complaints of chest pain or shortness of breath. Blood pressure is stable. Continue on midodrine. Heart rate is in 70s. Patient does adequate have urine output. Continued on Lasix and Aldactone. Denies any complaints of headache or dizziness or lightheadedness. Patient denies any antibiotics -cefazolin Laboratory data showed WBC 9.6 hemoglobin 11.4 and platelets 135, sodium 125, potassium 3.3 chloride 94 bicarb is 25 BUN 3 and creatinine 0.64 and magnesium 1.2 which is being replaced. Albumin 2.6. Nephrology and ID is on board. Current medications reviewed. Objective - Vital Signs Vital signs: Vital Signs Temp 98.0 F 09/24/22 20:00 Pulse 65 09/24/22 20:00 Resp 18 09/24/22 20:00 BP 102/64 09/24/22 20:00 Pulse Ox 93 L 09/24/22 20:00 FiO2 Intake & Output 09/24/22 09/24/22 09/25/22 06:59 18:59 06:59 Intake Total 580 750 10 Output Total 600 851 Balance - 10 Weight 71.5 kg Intake: IV 100 750 10 0.9 KVO 200 Invasive Line 2 30 Invasive Line 3 20 10 Magnesium Sulfate-D5w Pmx 300 1 gm In Dextrose/Water 1 100ml.bag @ 100 mls/hr IVPB Q1H [facility] Rx#: [id number] ceFAZolin 2 gm In Sodium 100 200 Chloride 0.9% 50 ml @ 100 mls/hr IVPB Q8HR [facility] Rx# :[id number] Oral 480 0 Output: Urine 600 850 Stool 1 Other: Voiding Method External Catheter External Catheter External Catheter - Exam PHYSICAL EXAMINATION: Patient is lying in the bed comfortably, no acute distress, awake alert and oriented.. HEENT: Normocephalic. Neck is supple. Pupils reactive. Nostrils clear. Oral cavity is moist. Neck reveals no JVD, carotid bruits, or thyromegaly. CHEST EXAMINATION: Trachea is central. Symmetrical expansion. Lung cervantes clear to auscultation and percussion. CARDIAC: Normal S1, S2 with no gallops. No murmurs ABDOMEN: Soft. Distended with ascites. Bowel sounds present. nontender. Extremities: Bilateral lower extremity trace edema. No clubbing or cyanosis Neurologically awake, alert, oriented x3 with well-coordinated movements. No focal deficits noted Skin: No rash or skin lesions. Psychiatric: Cooperative. Nonsuicidal Musculoskeletal: No joint swelling or deformity. Normal range of motion. - Labs CBC & Chem 7: 09/24/22 08:30 09/24/22 20:50 Labs: Abnormal Lab Results - Last 24 Hours (Table) 09/24/22 09/24/22 09/24/22 Range/Units 08:30 08:30 16:52 RBC 3.30 L (3.80-5.40) m/uL Hct 33.8 L (34.0-46.0) % MCV 102.5 H (80.0-100.0) fL Plt Count 135 L (150-450) k/uL Sodium 125 L (137-145) mmol/L Potassium 3.3 L 3.2 L (3.5-5.1) mmol/L Chloride 94 L (98-107) mmol/L BUN 3 L (7-17) mg/dL Glucose 116 H (74-99) mg/dL Calcium 7.4 L (8.4-10.2) mg/dL Magnesium 1.2 L (1.6-2.3) mg/dL Total Bilirubin 2.8 H (0.2-1.3) mg/dL AST 39 H (14-36) U/L Total Protein 4.9 L (6.3-8.2) g/dL Albumin 2.6 L (3.5-5.0) g/dL Microbiology - Last 24 Hours (Table) 09/20/22 09:09 Anaerobic Culture - Final Paracentesis Fluid 09/20/22 09:09 Gram Stain - Final Paracentesis Fluid Body Fluid Culture - Final 09/20/22 06:00 Blood Culture - Preliminary Blood No Growth after 96 hours Assessment and Plan Assessment: De-Compensated alcoholic liver disease with possible cirrhosis with ascites and jaundice. s/ p paracentesis Post paracentesis hypotension. Status post albumin dose and was requiring pressor support.Currently off pressors. Started on midodrine.. Hyponatremia, Hypervolemia and also related to alcohol use disorder Elevated lactic acid left foot cellulitis COPD, no acute exacerbation History of GERD Hypertension Hyperlipidemia History of rheumatoid arthritis COPD, GERD/Reflux, Hyperlipidemia, Hypertension, Liver Disease, Rheumatoid Arthritis (RA) Plan: Patient is status post paracentesis. off norepinephrine due to hypotension also albumin IV was given. Patient is being monitored in the MICU. Patient was started on midodrine Continue with Aldactone, torsemide Continue to follow sodium level. Replaced magnesium and potassium. Continue with home medication of Ultram when necessary Antibiotics changed to cefazolin as per ID recommendations. DVT prophylaxis: Subcutaneous heparin GI Prophylaxis: Ppi PT/OT: Pending Prognosis is guarded Time with Patient: Greater than 30
[2022-09-25] MEDS: MIDODRINE 5 MG TAB PO SCH ×3 (06:48→16:20)
[2022-09-25] MEDS: PANTOPRAZOLE 40 MG TABLET PO SCH (06:48)
[2022-09-25] MEDS: METOPROLOL TARTRATE 12.5 MG TAB PO SCH (08:50)
[2022-09-25] MEDS: SPIRONOLACTONE 25 MG TAB PO SCH (08:50)
[2022-09-25] MEDS: MULTIVITAMINS, THERA 1 EACH TAB PO SCH (09:47)
[2022-09-25] MEDS: FOLIC ACID 1 MG TAB PO SCH (09:47)
[2022-09-25] MEDS: CYANOCOBALAMIN 500 MCG TAB PO SCH (09:47)
[2022-09-25] MEDS: HEPARIN SODIUM,PORCINE/PF 5,000 UNIT/0.5 ML SYRINGE SQ SCH ×2 (09:47→22:12)
[2022-09-25] MEDS: MORPHINE SULFATE 2 MG/ML SYRINGE IVP PRN (10:22)
--- NOTE | 2022-09-25 13:40 | P.PN ---
Subjective Patient is seen in follow-up for hyponatremia. Sodium level 125 yesterday. No labs today. Oral intake is fair. Nonoliguric. Has external catheter. Blood pressure on the lower side. Vital signs are stable. Blood pressure in the lower side. General: Awake. No acute distress. HEENT: Head exam is unremarkable. LUNGS: Breath sounds decreased. HEART: Rate and Rhythm are regular. ABDOMEN: Soft, no distention. EXTREMITITES: No edema. Objective - Vital Signs Vital signs: Vital Signs Temp 98.3 F 09/25/22 08:00 Pulse 66 09/25/22 08:00 Resp 17 09/25/22 08:00 BP 82/52 09/25/22 08:00 Pulse Ox 96 09/25/22 08:00 FiO2 Intake & Output 09/24/22 09/25/22 09/25/22 18:59 06:59 18:59 Intake Total 750 490 Output Total 851 Balance -101 490 Weight 71.5 kg Intake: IV 750 10 0.9 KVO 200 Invasive Line 2 30 Invasive Line 3 20 10 Magnesium Sulfate-D5w Pmx 300 1 gm In Dextrose/Water 1 100ml.bag @ 100 mls/hr IVPB Q1H [facility] Rx#: [id number] ceFAZolin 2 gm In Sodium 200 Chloride 0.9% 50 ml @ 100 mls/hr IVPB Q8HR [facility] Rx# :[id number] Oral 0 480 Output: Urine 850 Stool 1 Other: Voiding Method External Catheter External Catheter # Bowel Movements 1 - Labs CBC & Chem 7: 09/24/22 08:30 09/24/22 20:50 Labs: Abnormal Lab Results - Last 24 Hours (Table) 09/24/22 Range/Units 16:52 Potassium 3.2 L (3.5-5.1) mmol/L Microbiology - Last 24 Hours (Table) 09/20/22 06:00 Blood Culture - Preliminary Blood No Growth after 120 hours 09/20/22 09:09 Anaerobic Culture - Final Paracentesis Fluid 09/20/22 09:09 Gram Stain - Final Paracentesis Fluid Body Fluid Culture - Final Assessment and Plan Plan: Assessment: 1. Hyponatremia. Currently appears euvolemic. Sodium level 125 yesterday. Urine sodium less than 20 and urine osmolality 366 dated 09/19/2022. 2. Liver cirrhosis. 3. Ascites status post paracentesis with 6.1 L drained 09/21/2022. 4. Hypokalemia from poor intake and GI losses. Replaced. Better. 5. Hypomagnesemia from poor intake and GI losses. Replaced. Better. Plan: Encourage protein intake. Maintain fluid restriction. Status post samsca 30 mg given yesterday. Morning labs pending. Spironolactone held this morning due to low blood pressure. Increase dose of midodrine.
[2022-09-25 14:06] LABS: African American GFR (CKD) >90 (>60 ml/min/1.73 sqM); Anion Gap 4 mmol/L; Blood Urea Nitrogen 5 mg/dL (7-17); Calcium 7.5 mg/dL (8.4-10.2); Carbon Dioxide 25 mmol/L (22-30); Chloride 95 mmol/L (98-107); Glucose 79 mg/dL (74-99); Non-African American GFR(CKD) 89 (>60 ml/min/1.73 sqM); Potassium 4.5 mmol/L (3.5-5.1); Sodium 124 mmol/L (137-145)
--- NOTE | 2022-09-25 15:38 | P.PN ---
Subjective Progress Note Date: 09/25/22 Principal diagnosis: left foot wound and a positive blood culture Patient is a 71 year female with multiple comorbidity patient did have alcohol liver disease/cirrhosis with multiple admission to the hospital for ascites and requiring paracentesis last admission was back in June with the patient did require paracentesis 2 during that admission patient also develop swelling to the left foot area patient did have a CT of the foot that was suggestive mostly hematoma no evidence of any abscess , patient presented to hospital with abdominal distention worsening ascites and need for paracentesis she did have a positive blood culture and a nonhealing wound to the left foot with a positive culture on today's evaluation that is 09/25/2022, the patient continues to be afebrile, the patient is breathing comfortably on room air. The patient denies chest pain or shortness of breath , the patient denies nausea or vomiting, the patient abdominal discomfort has decreased in intensity, the patient denies any pain to the left foot, no new symptoms Objective - Vital Signs Vital signs: Vital Signs Temp 98.3 F 09/25/22 08:00 Pulse 66 09/25/22 08:00 Resp 17 09/25/22 08:00 BP 82/52 09/25/22 08:00 Pulse Ox 96 09/25/22 08:00 FiO2 Intake & Output 09/24/22 09/25/22 09/25/22 18:59 06:59 18:59 Intake Total 750 490 Output Total 851 Balance -101 490 Weight 71.5 kg Intake: IV 750 10 0.9 KVO 200 Invasive Line 2 30 Invasive Line 3 20 10 Magnesium Sulfate-D5w Pmx 300 1 gm In Dextrose/Water 1 100ml.bag @ 100 mls/hr IVPB Q1H [facility] Rx#: [id number] ceFAZolin 2 gm In Sodium 200 Chloride 0.9% 50 ml @ 100 mls/hr IVPB Q8HR [facility] Rx# :[id number] Oral 0 480 Output: Urine 850 Stool 1 Other: Voiding Method External Catheter External Catheter # Bowel Movements 1 - Exam GENERAL DESCRIPTION: An elderly female lying in bed in no distress RESPIRATORY SYSTEM: Unlabored breathing , decreased breath sounds at bases HEART: S1 S2 regular rate and rhythm , ABDOMEN: Soft , no tenderness EXTREMITIES: left foot dorsum wound with minimal purulent drainage - Labs CBC & Chem 7: 09/24/22 08:30 09/25/22 05:34 Labs: Abnormal Lab Results - Last 24 Hours (Table) 09/24/22 Range/Units 16:52 Potassium 3.2 L (3.5-5.1) mmol/L Microbiology - Last 24 Hours (Table) 09/20/22 06:00 Blood Culture - Preliminary Blood No Growth after 120 hours 09/20/22 09:09 Anaerobic Culture - Final Paracentesis Fluid 09/20/22 09:09 Gram Stain - Final Paracentesis Fluid Body Fluid Culture - Final Assessment and Plan (1) Bacteremia Current Visit: Yes Status: Acute Code(s): R78.81 - BACTEREMIA SNOMED Code(s): 3127272 (2) Wound of left foot Current Visit: Yes Status: Acute Code(s): S91.302A - UNSPECIFIED OPEN WOUND, LEFT FOOT, INITIAL ENCOUNTER SNOMED Code(s): 546744858 Plan: 1patient with positive blood culture finalized as coagulase negative staph likely skin contamination, blood culture has been repeated on 09/20/2022 and they have been negative so for 2patient with a nonhealing wound on the dorsum aspect of the left foot with a culture grew MSSA 3Patient seemed to have shown clinical improvement as for his left foot cellulitis, patient to continue with cefazolin 2 g every 8 hours and local wound care with dry Aquacel silver dressing change daily Time with Patient: Less than 30
[2022-09-25] MEDS: SODIUM CHLORIDE 0.9% 1,000 ML IV SCH (16:20)
[2022-09-25] MEDS ORDERED: FUROSEMIDE 10 MG/ML 2 ML VIAL IV STA (21:49)
[2022-09-26] MEDS: METOPROLOL TARTRATE 12.5 MG TAB PO SCH ×3 (00:23→21:44)
[2022-09-26] MEDS: MIDODRINE 5 MG TAB PO SCH ×3 (06:49→18:37)
[2022-09-26] MEDS: PANTOPRAZOLE 40 MG TABLET PO SCH (06:50)
[2022-09-26] MEDS: CYANOCOBALAMIN 500 MCG TAB PO SCH (09:03)
[2022-09-26] MEDS: FOLIC ACID 1 MG TAB PO SCH (09:03)
[2022-09-26] MEDS: HEPARIN SODIUM,PORCINE/PF 5,000 UNIT/0.5 ML SYRINGE SQ SCH ×2 (09:04→21:51)
[2022-09-26] MEDS: MULTIVITAMINS, THERA 1 EACH TAB PO SCH (09:04)
[2022-09-26 09:24] LABS: Magnesium 1.5 mg/dL (1.5-2.4)
[2022-09-26 09:33] LABS: BUN/Creat Ratio 8.61 Ratio (12.00-20.00); Blood Urea Nitrogen 6.7 mg/dL (9.0-27.0); Carbon Dioxide 22.3 mmol/L (20.0-27.5); Non-African American GFR(CKD) 75.1 (60.0-200.0); Potassium 4.6 mmol/L (3.5-5.5)
[2022-09-26] MEDS: SPIRONOLACTONE 25 MG TAB PO SCH (11:25)
[2022-09-26] MEDS: SODIUM CHLORIDE 0.9% 1,000 ML IV SCH (12:08)
--- NOTE | 2022-09-26 12:48 | P.GSCN ---
History of Present Illness Consult date: 09/26/22 Reason for Consult: Left foot ulcer Requesting physician: Corona Jacinto History of present illness: This patient tells me she's had an ulcer on the dorsum of her left foot for about 8 months. She tells me she has not sought medical attention for it. She has been treating it with some form of spray. She is not a diabetic. She has multiple rather acute medical issues as found in medical consultations. Past Medical History Past Medical History: COPD, GERD/Reflux, Hyperlipidemia, Hypertension, Liver Disease, Rheumatoid Arthritis (RA) Additional Past Medical History / Comment(s): Pancreatitis History of Any Multi-Drug Resistant Organisms: None Reported Past Surgical History: Hysterectomy, Tubal Ligation Additional Past Surgical History / Comment(s): One ovary removed, stomach muscles repaired Past Anesthesia/Blood Transfusion Reactions: No Reported Reaction Smoking Status: Former smoker - Past Family History Father Family Medical History: Cancer Additional Family Medical History / Comment(s): Throat cancer and . Mother Additional Family Medical History / Comment(s): Brain aneurysm and . Son(s) History Unknown: Yes Family Medical History: Hypertension Additional Family Medical History / Comment(s): Oldest son has HTN. Medications and Allergies Home Medications Medication Instructions Recorded Confirmed Type [place]-3 Fatty Acids/Fish Oil [Fish 3 cap PO DAILY 06/10/19 09/18/22 History Oil 1,000 mg Softgel] Folic Acid 1 mg PO DAILY tab 07/16/22 09/18/22 Rx Spironolactone [Aldactone] 25 mg PO DAILY tab 07/16/22 09/18/22 Rx Torsemide [Demadex] 20 mg PO DAILY tab 07/16/22 09/18/22 Rx Cyanocobalamin (Vitamin B-12) 1,000 mcg PO DAILY 08/30/22 09/18/22 History [Vitamin B-12] Lactulose [Cephulac] 20 gm PO DAILY PRN 08/30/22 09/18/22 History Mag Hydrox/Aluminum Hyd/Simeth 10 - 20 ml PO QID PRN 08/30/22 09/18/22 History [Mylanta Maximum Strength Liq] Magnesium Hydroxide [Milk of 2,400 mg PO Q3D 08/30/22 09/18/22 History Magnesia] Metoclopramide [Reglan] 5 mg PO AC-TID 08/30/22 09/18/22 History Midodrine HCl [ProAmatine] 10 mg PO TID 08/30/22 09/18/22 History Milk Thistle 150 mg PO DAILY 08/30/22 09/18/22 History Pantoprazole [Protonix] 40 mg PO DAILY 08/30/22 09/18/22 History Potassium Chloride ER [K-Dur 20] 20 meq PO DAILY 08/30/22 09/18/22 History Simvastatin 40 mg PO HS 08/30/22 09/18/22 History lisinopriL [Prinivil] 20 mg PO DAILY 08/30/22 09/18/22 History traMADol HCl [Ultram] 50 mg PO Q8H PRN 08/30/22 09/18/22 History Multivitamins, Thera [Multivitamin 1 tab PO DAILY 09/18/22 09/18/22 History (formulary)] Allergies Allergy/AdvReac Type Severity Reaction Status Date / Time No Known Allergies Allergy Verified 09/18/22 16:44 Surgical - Exam Osteopathic Statement: *. No significant issues noted on an osteopathic structural exam other than those noted in the History and Physical/Consult. Vital Signs Temp Pulse Resp BP Pulse Ox 96 F L 100 20 111/80 97 09/18/22 14:37 09/18/22 14:37 09/18/22 14:37 09/18/22 14:37 09/18/22 14:37 I do not feel good pulses in either foot. The patient has an ulcer on the dorsum of her left foot with purulent drainage. The opening is about 0.5 cm in diameter. There is about 0.5 cm undermining in all directions. Results - Labs 09/24/22 08:30 09/26/22 05:51 Abnormal Lab Results - Last 24 Hours (Table) 09/25/22 09/25/22 09/26/22 Range/Units 05:34 20:15 05:51 Sodium 124 L 124 L 128 L (137-145) mmol/L Chloride 95 L 95 L (98-107) mmol/L BUN 5 L 6.7 L (7-17) mg/dL BUN/Creatinine Ratio 8.61 L (12.00-20.00) Ratio Calcium 7.5 L 8.0 L (8.4-10.2) mg/dL Microbiology - Last 24 Hours (Table) 09/20/22 06:00 Blood Culture - Final Blood No Growth after 144 hours Diabetes panel 09/25/22 09/25/22 09/26/22 Range/Units 05:34 20:15 05:51 Sodium 124 L 124 L 128 L (137-145) mmol/L Potassium 4.5 4.6 (3.5-5.1) mmol/L Chloride 95 L 95 L (98-107) mmol/L Carbon Dioxide 25 22.3 (22-30) mmol/L BUN 5 L 6.7 L (7-17) mg/dL Creatinine 0.63 0.8 (0.52-1.04) mg/dL Glucose 79 83 (74-99) mg/dL Calcium 7.5 L 8.0 L (8.4-10.2) mg/dL Calcium panel 09/25/22 09/26/22 Range/Units 05:34 05:51 Calcium 7.5 L 8.0 L (8.4-10.2) mg/dL Pituitary panel 09/25/22 09/25/22 09/26/22 Range/Units 05:34 20:15 05:51 Sodium 124 L 124 L 128 L (137-145) mmol/L Potassium 4.5 4.6 (3.5-5.1) mmol/L Chloride 95 L 95 L (98-107) mmol/L Carbon Dioxide 25 22.3 (22-30) mmol/L BUN 5 L 6.7 L (7-17) mg/dL Creatinine 0.63 0.8 (0.52-1.04) mg/dL Glucose 79 83 (74-99) mg/dL Calcium 7.5 L 8.0 L (8.4-10.2) mg/dL Adrenal panel 09/25/22 09/25/22 09/26/22 Range/Units 05:34 20:15 05:51 Sodium 124 L 124 L 128 L (137-145) mmol/L Potassium 4.5 4.6 (3.5-5.1) mmol/L Chloride 95 L 95 L (98-107) mmol/L Carbon Dioxide 25 22.3 (22-30) mmol/L BUN 5 L 6.7 L (7-17) mg/dL Creatinine 0.63 0.8 (0.52-1.04) mg/dL Glucose 79 83 (74-99) mg/dL Calcium 7.5 L 8.0 L (8.4-10.2) mg/dL Assessment and Plan (1) Ulcer of left foot with muscle involvement without evidence of necrosis Current Visit: Yes Status: Acute Code(s): L97.525 - NON-PRS CHR ULC OTH PRT L FOOT WITH MSL INVL W/O EVD OF NECR SNOMED Code(s): 527688432 (2) Malnutrition Current Visit: Yes Status: Acute Code(s): E46 - UNSPECIFIED PROTEIN-CALORIE MALNUTRITION SNOMED Code(s): 45139560 (3) Macrocytic anemia Current Visit: Yes Status: Acute Code(s): D53.9 - NUTRITIONAL ANEMIA, UNSPE CIFIED SNOMED Code(s): 72989826 Plan: I recommended simple irrigation of the wound and utilizing a plain gauze packing around circumferentially in order to alleviate the infection. I would also recommend arterial Doppler studies to assess her vascular status. I would also recommend attention to her nutrition with an albumin of 2. I would consider assessment of her nutritional status as it relates to her macrocytic anemia considering a B12 deficiency. As her more pressing medical issues are being addressed we will give a fairly conservative treatment plan at chance. If this does not seem to progress towards some element of healing of the wound we would be happy to reassess either as an inpatient or in wound care as an outpatient.
[2022-09-26] MEDS: ONDANSETRON 4 MG/2 ML VIAL IVP PRN (13:05)
--- NOTE | 2022-09-26 13:40 | P.PN ---
Subjective Patient is seen in follow-up for hyponatremia. Sodium level 128. Oral intake is fair. Nonoliguric. Has external catheter. Blood pressure on the lower side - most recent reading 108/66.- Vital signs are stable. General: Awake. No acute distress. HEENT: Head exam is unremarkable. LUNGS: Breath sounds decreased. HEART: Rate and Rhythm are regular. ABDOMEN: Soft, no distention. EXTREMITITES: No edema. Objective - Vital Signs Vital signs: Vital Signs Temp 98.3 F 09/26/22 06:43 Pulse 87 09/26/22 08:22 Resp 18 09/26/22 06:43 BP 108/66 09/26/22 08:22 Pulse Ox 100 09/26/22 06:43 FiO2 Intake & Output 09/25/22 09/26/22 09/26/22 18:59 06:59 18:59 Intake Total 200 Output Total 300 800 Balance -100 -800 Weight 71.5 kg Intake: Oral 200 Output: Urine 300 800 Other: Voiding Method External Catheter - Labs CBC & Chem 7: 09/24/22 08:30 09/26/22 05:51 Labs: Abnormal Lab Results - Last 24 Hours (Table) 09/25/22 09/25/22 09/26/22 Range/Units 05:34 20:15 05:51 Sodium 124 L 124 L 128 L (137-145) mmol/L Chloride 95 L 95 L (98-107) mmol/L BUN 5 L 6.7 L (7-17) mg/dL BUN/Creatinine Ratio 8.61 L (12.00-20.00) Ratio Calcium 7.5 L 8.0 L (8.4-10.2) mg/dL Microbiology - Last 24 Hours (Table) 09/20/22 06:00 Blood Culture - Final Blood No Growth after 144 hours Assessment and Plan Plan: Assessment: 1. Hyponatremia. Currently appears euvolemic. Sodium level 128. Urine sodium less than 20 and urine osmolality 366 dated 09/19/2022. 2. Liver cirrhosis. 3. Ascites status post paracentesis with 6.1 L drained 09/21/2022. 4. Hypokalemia from poor intake and GI losses. Replaced. Better. 5. Hypomagnesemia from poor intake and GI losses. Plan: Hep-Lock IV fluids. Encourage protein intake. Maintain fluid restriction. Spironolactone held due to low blood pressure. Maintain midodrine. Replace magnesium.
--- NOTE | 2022-09-26 14:51 | P.PN ---
Subjective Progress Note Date: 09/26/22 Principal diagnosis: left foot wound and a positive blood culture Patient is a 71 year old female with multiple comorbidity patient did have alcohol liver disease/cirrhosis with multiple admission to the hospital for ascites and requiring paracentesis last admission was back in June with the patient did require paracentesis 2 during that admission patient also develop swelling to the left foot area patient did have a CT of the foot that was suggestive mostly hematoma no evidence of any abscess , patient presented to hospital with abdominal distention worsening ascites and need for paracentesis she did have a positive blood culture and a nonhealing wound to the left foot with a positive culture on today's evaluation that is 09/26/2022, the patient remains to be afebrile, the patient is breathing comfortably on room air. The patient denies chest pain or shortness of breath , the patient has been obtaining of more abdominal distention and discomfort today however no vomiting or diarrhea has been reported Objective - Vital Signs Vital signs: Vital Signs Temp 98.3 F 09/26/22 06:43 Pulse 87 09/26/22 08:22 Resp 18 09/26/22 06:43 BP 108/66 09/26/22 08:22 Pulse Ox 100 09/26/22 06:43 FiO2 Intake & Output 09/25/22 09/26/22 09/26/22 18:59 06:59 18:59 Intake Total 200 Output Total 300 800 Balance -100 -800 Weight 71.5 kg Intake: Oral 200 Output: Urine 300 800 Other: Voiding Method External Catheter - Exam GENERAL DESCRIPTION: An elderly female lying in bed in no distress RESPIRATORY SYSTEM: Unlabored breathing , decreased breath sounds at bases HEART: S1 S2 regular rate and rhythm , ABDOMEN: Soft , abdominal distention EXTREMITIES: left foot dorsum wound with minimal purulent drainage - Labs CBC & Chem 7: 09/24/22 08:30 09/26/22 05:51 Labs: Abnormal Lab Results - Last 24 Hours (Table) 09/25/22 09/25/22 09/26/22 Range/Units 05:34 20:15 05:51 Sodium 124 L 124 L 128 L (137-145) mmol/L Chloride 95 L 95 L (98-107) mmol/L BUN 5 L 6.7 L (7-17) mg/dL BUN/Creatinine Ratio 8.61 L (12.00-20.00) Ratio Calcium 7.5 L 8.0 L (8.4-10.2) mg/dL Microbiology - Last 24 Hours (Table) 09/20/22 06:00 Blood Culture - Final Blood No Growth after 144 hours Assessment and Plan (1) Bacteremia Current Visit: Yes Status: Acute Code(s): R78.81 - BACTEREMIA SNOMED Code(s): 2348676 (2) Wound of left foot Current Visit: Yes Status: Acute Code(s): S91.302A - UNSPECIFIED OPEN WOUND, LEFT FOOT, INITIAL ENCOUNTER SNOMED Code(s): 930783601 Plan: 1patient with positive blood culture finalized as coagulase negative staph likely skin contamination, blood culture has been repeated on 09/20/2022 and they have been negative so for 2patient with a nonhealing wound on the dorsum aspect of the left foot with a culture grew MSSA 3Patient has shown clinical improvement as for his left foot cellulitis, patient to continue with cefazolin 2 g every 8 hours and local wound care with dry Aquacel silver dressing change daily 4patient did have worsening abdominal distention possible worsening ascites and will benefit from repeat paracentesis discussed with the medical team Time with Patient: Less than 30
[2022-09-26] MEDS: MAGNESIUM SULFATE-D5W PMX 1 GM in DEXTROSE/WATER 1 100ML.BAG IVPB SCH ×2 (16:03→17:16)
[2022-09-26 18:11] LABS: INR 3.8 (<1.2); Prothrombin Time 37.4 sec (9.0-12.0)
[2022-09-26] MEDS: MORPHINE SULFATE 2 MG/ML SYRINGE IVP PRN (21:51)
[2022-09-27] MEDS: MIDODRINE 5 MG TAB PO SCH ×3 (06:59→17:12)
[2022-09-27] MEDS: PANTOPRAZOLE 40 MG TABLET PO SCH (07:00)
[2022-09-27] MEDS: FOLIC ACID 1 MG TAB PO SCH (09:24)
[2022-09-27] MEDS: MULTIVITAMINS, THERA 1 EACH TAB PO SCH (09:24)
[2022-09-27] MEDS: CYANOCOBALAMIN 500 MCG TAB PO SCH (09:25)
[2022-09-27] MEDS: HEPARIN SODIUM,PORCINE/PF 5,000 UNIT/0.5 ML SYRINGE SQ SCH ×3 (09:50→21:13)
[2022-09-27] MEDS: SPIRONOLACTONE 25 MG TAB PO SCH ×2 (09:50→11:57)
[2022-09-27] MEDS: METOPROLOL TARTRATE 12.5 MG TAB PO SCH ×2 (09:50→21:02)
--- NOTE | 2022-09-27 10:14 | US ---
EXAMINATION TYPE: US abdomen limited DATE OF EXAM: 09/27/2022 COMPARISON: 09/20/2022 CLINICAL HISTORY: ascites Moderate ascites is present throughout all 4 quadrants of the abdomen. IMPRESSION: Moderate ascites.
[2022-09-27 11:03] LABS: INR 3.7 (<1.2); Prothrombin Time 36.4 sec (9.0-12.0)
[2022-09-27] MEDS ORDERED: PHYTONADIONE ORAL 5 MG/5 ML ORAL.SYRG PO STA (11:10)
[2022-09-27 11:34] LABS: African American GFR (CKD) 84.8 (60.0-200.0); Anion Gap 10.2 mmol/L (10.00-18.00); BUN/Creat Ratio 8.63 Ratio (12.00-20.00); Blood Urea Nitrogen 6.9 mg/dL (9.0-27.0); Carbon Dioxide 18.8 mmol/L (20.0-27.5); Non-African American GFR(CKD) 73.1 (60.0-200.0); Potassium 4.5 mmol/L (3.5-5.5)
[2022-09-27] MEDS ORDERED: TOLVAPTAN 15 MG 1/2 TABLET PO ONE (11:43)
--- NOTE | 2022-09-27 11:44 | P.PN ---
Subjective Patient is seen in follow-up for hyponatremia. Sodium level 125. Oral intake is fair. Nonoliguric. Has external catheter. Blood pressure on the lower side. Vital signs are stable. General: Awake. No acute distress. HEENT: Head exam is unremarkable. LUNGS: Breath sounds decreased. HEART: Rate and Rhythm are regular. ABDOMEN: Soft, moderate distention. EXTREMITITES: Trace edema. Objective - Vital Signs Vital signs: Vital Signs Temp 97.9 F 09/27/22 08:00 Pulse 93 09/27/22 08:00 Resp 15 09/27/22 08:00 BP 95/63 09/27/22 08:00 Pulse Ox 99 09/27/22 08:00 FiO2 Intake & Output 09/26/22 09/27/22 09/27/22 18:59 06:59 18:59 Intake Total 240 Output Total 475 600 Balance -475 -360 Weight 71.5 kg Intake: Oral 240 Output: Urine 475 600 Other: Voiding Method External Catheter Incontinent External Catheter - Labs CBC & Chem 7: 09/24/22 08:30 09/27/22 06:50 Labs: Abnormal Lab Results - Last 24 Hours (Table) 09/26/22 09/27/22 09/27/22 Range/Units 17:51 06:50 10:04 PT 37.4 H 36.4 H (9.0-12.0) sec INR 3.8 H 3.7 H (<1.2) Sodium 125 L (135-145) mmol/L Carbon Dioxide 18.8 L (20.0-27.5) mmol/L BUN 6.9 L (9.0-27.0) mg/dL BUN/Creatinine Ratio 8.63 L (12.00-20.00) Ratio Calcium 8.0 L (8.7-10.3) mg/dL Microbiology - Last 24 Hours (Table) 09/20/22 06:00 Blood Culture - Final Blood No Growth after 144 hours Assessment and Plan Plan: Assessment: 1. Hyponatremia. Hypervolemic with ascites. Sodium level 125. Urine sodium less than 20 and urine osmolality 366 dated 09/19/2022. 2. Liver cirrhosis. 3. Ascites status post paracentesis with 6.1 L drained 09/21/2022. 4. Hypokalemia from poor intake and GI losses. Replaced. Better. 5. Hypomagnesemia from poor intake and GI losses. Replaced. Better. Plan: Remains off IV fluids. Encourage protein intake. Maintain fluid restriction. Spironolactone held due to low blood pressure. Maintain midodrine. Paracentesis pending. Will give 25 g IV albumin before paracentesis and an additional 25 g of more than 5 L drained. Repeat Samsca today. Check cortisol level as well.
[2022-09-27 11:53] LABS: Acanthocytes 2+; Basophils # (A) 0.08 X 10*3/uL (0.00-0.10); Basophils % (A) 0.8 %; Eosinophils # (A) 0.15 X 10*3/uL (0.04-0.35); Eosinophils % (A) 1.5 %; HCT 31.3 % (37.2-46.3); HGB 10.5 g/dL (12.0-15.0); Immature Grans, Automated 0.5 %; Lymphocytes # (A) 2.39 X 10*3/uL (0.90-5.00); Lymphocytes % (A) 24.3 %; MCH 34.4 pg (27.0-32.0); MCHC 33.5 g/dL (32.0-37.0); MCV 102.6 fL (80.0-97.0); Macrocytosis (M) 2+; Mean Platelet Volume 10.3 fL (9.5-12.2); Monocytes % (A) 15.3 %; NRBC Per 100 WBC 0 /100 WBCS (0.0-0.0); Neutrophils # (A) 5.65 X 10*3/uL (1.80-7.70); Neutrophils % (A) 57.6 %; Platelet Count 120 X 10*3/uL (140-440); RBC 3.05 X 10*6/uL (4.10-5.20); RDW 16.4 % (11.5-14.5); WBC 9.82 X 10*3/uL (4.50-10.00)
[2022-09-27] MEDS: MORPHINE SULFATE 2 MG/ML SYRINGE IVP PRN ×2 (12:05→21:13)
--- NOTE | 2022-09-27 15:09 | P.PN ---
Subjective Progress Note Date: 09/27/22 Principal diagnosis: left foot wound and a positive blood culture Patient is a 71 year old female with multiple comorbidity patient did have alcohol liver disease/cirrhosis with multiple admission to the hospital for ascites and requiring paracentesis last admission was back in June with the patient did require paracentesis 2 during that admission patient also develop swelling to the left foot area patient did have a CT of the foot that was suggestive mostly hematoma no evidence of any abscess , patient presented to hospital with abdominal distention worsening ascites and need for paracentesis she did have a positive blood culture and a nonhealing wound to the left foot with a positive culture on today's evaluation that is 09/27/2022, the patient continues to be afebrile, the patient is breathing comfortably on room air. The patient denies chest pain or shortness of breath , the patient has been complaining of abdominal distention and discomfort however paracentesis could not be done as the patient did have elevated INR per the nursing staff, no vomiting or diarrhea has been reported Objective - Vital Signs Vital signs: Vital Signs Temp 97.9 F 09/27/22 08:00 Pulse 93 09/27/22 08:00 Resp 15 09/27/22 08:00 BP 95/63 09/27/22 08:00 Pulse Ox 99 09/27/22 08:00 FiO2 Intake & Output 09/26/22 09/27/22 09/27/22 18:59 06:59 18:59 Intake Total 240 Output Total 475 600 Balance -475 -360 Weight 71.5 kg Intake: Oral 240 Output: Urine 475 600 Other: Voiding Method External Catheter Incontinent External Catheter - Exam GENERAL DESCRIPTION: An elderly female lying in bed in no distress RESPIRATORY SYSTEM: Unlabored breathing , decreased breath sounds at bases HEART: S1 S2 regular rate and rhythm , ABDOMEN: Soft , abdominal distention EXTREMITIES: left foot dorsum wound with minimal purulent drainage - Labs CBC & Chem 7: 09/27/22 06:50 09/27/22 06:50 Labs: Abnormal Lab Results - Last 24 Hours (Table) 09/26/22 09/27/22 09/27/22 Range/Units 17:51 06:50 06:50 RBC 3.05 L (4.10-5.20) X 10*6/uL Hgb 10.5 L (12.0-15.0) g/dL Hct 31.3 L (37.2-46.3) % MCV 102.6 H (80.0-97.0) fL MCH 34.4 H (27.0-32.0) pg RDW 16.4 H (11.5-14.5) % Plt Count 120 L (140-440) X 10*3/uL Plt Count Comment DECREASED A Immature Gran # 0.05 H (0.00-0.04) X 10*3/uL Monocytes # 1.50 H (0.20-1.00) X 10*3/uL PT 37.4 H (9.0-12.0) sec INR 3.8 H (<1.2) Sodium 125 L (135-145) mmol/L Carbon Dioxide 18.8 L (20.0-27.5) mmol/L BUN 6.9 L (9.0-27.0) mg/dL BUN/Creatinine Ratio 8.63 L (12.00-20.00) Ratio Calcium 8.0 L (8.7-10.3) mg/dL 09/27/22 Range/Units 10:04 RBC (4.10-5.20) X 10*6/uL Hgb (12.0-15.0) g/dL Hct (37.2-46.3) % MCV (80.0-97.0) fL MCH (27.0-32.0) pg RDW (11.5-14.5) % Plt Count (140-440) X 10*3/uL Plt Count Comment Immature Gran # (0.00-0.04) X 10*3/uL Monocytes # (0.20-1.00) X 10*3/uL PT 36.4 H (9.0-12.0) sec INR 3.7 H (<1.2) Sodium (135-145) mmol/L Carbon Dioxide (20.0-27.5) mmol/L BUN (9.0-27.0) mg/dL BUN/Creatinine Ratio (12.00-20.00) Ratio Calcium (8.7-10.3) mg/dL Assessment and Plan (1) Bacteremia Current Visit: Yes Status: Acute Code(s): R78.81 - BACTEREMIA SNOMED Code(s): 5395882 (2) Wound of left foot Current Visit: Yes Status: Acute Code(s): S91.302A - UNSPECIFIED OPEN WOUND, LEFT FOOT, INITIAL ENCOUNTER SNOMED Code(s): 412566449 Plan: 1patient with positive blood culture finalized as coagulase negative staph likely skin contamination, blood culture has been repeated on 09/20/2022 and they have been negative so for 2patient with a nonhealing wound on the dorsum aspect of the left foot with a culture grew MSSA 3Patient has shown clinical improvement as for his left foot cellulitis, patient to continue with cefazolin 2 g every 8 hours and local wound care with dry Aquacel silver dressing change daily and will monitor clinical course closely Time with Patient: Less than 30
[2022-09-28] MEDS: PANTOPRAZOLE 40 MG TABLET PO SCH (06:48)
[2022-09-28] MEDS: MIDODRINE 5 MG TAB PO SCH ×3 (06:49→17:04)
[2022-09-28] MEDS: MORPHINE SULFATE 2 MG/ML SYRINGE IVP PRN ×2 (08:31→17:05)
[2022-09-28 09:00] LABS: Magnesium 1.7 mg/dL (1.5-2.4)
[2022-09-28 09:02] LABS: African American GFR (CKD) 84.8 (60.0-200.0); Anion Gap 10.3 mmol/L (10.00-18.00); BUN/Creat Ratio 12.5 Ratio (12.00-20.00); Calcium 8.1 mg/dL (8.7-10.3); Carbon Dioxide 19.7 mmol/L (20.0-27.5); Non-African American GFR(CKD) 73.1 (60.0-200.0); Potassium 4.9 mmol/L (3.5-5.5)
[2022-09-28 09:05] LABS: INR 2.21 (0.90-1.11); Prothrombin Time 24.2 sec (9.9-11.9)
[2022-09-28] MEDS: HEPARIN SODIUM,PORCINE/PF 5,000 UNIT/0.5 ML SYRINGE SQ SCH ×2 (09:19→22:05)
[2022-09-28] MEDS: METOPROLOL TARTRATE 12.5 MG TAB PO SCH ×2 (09:19→22:06)
[2022-09-28] MEDS: CYANOCOBALAMIN 500 MCG TAB PO SCH (09:29)
[2022-09-28] MEDS: SPIRONOLACTONE 25 MG TAB PO SCH (09:29)
[2022-09-28] MEDS: FOLIC ACID 1 MG TAB PO SCH (09:29)
[2022-09-28] MEDS: MULTIVITAMINS, THERA 1 EACH TAB PO SCH (09:29)
[2022-09-28] MEDS: ONDANSETRON 4 MG/2 ML VIAL IVP PRN (09:38)
[2022-09-28] MEDS ORDERED: Magnesium Replacement Protocol 1 EACH MISC MISCELLANE PRN (11:57)
--- NOTE | 2022-09-28 14:29 | P.PN ---
Subjective Patient is seen in follow-up for hyponatremia. Sodium level 126. Oral intake is fair. Nonoliguric. Has external catheter. Blood pressure on the lower side. Scheduled for paracentesis today. Vital signs are stable. General: Awake. No acute distress. HEENT: Head exam is unremarkable. LUNGS: Breath sounds decreased. HEART: Rate and Rhythm are regular. ABDOMEN: Soft, moderate distention. EXTREMITITES: Trace edema. Objective - Vital Signs Vital signs: Vital Signs Temp 97.4 F L 09/28/22 08:00 Pulse 95 09/28/22 08:00 Resp 17 09/28/22 08:00 BP 92/59 09/28/22 08:00 Pulse Ox 98 09/28/22 08:00 FiO2 Intake & Output 09/27/22 09/28/22 09/28/22 18:59 06:59 18:59 Output Total 300 Balance -300 Output: Urine 300 Other: Voiding Method Incontinent Diaper Incontinent External Catheter Incontinent External Catheter # Voids 2 - Labs CBC & Chem 7: 09/27/22 06:50 09/28/22 06:04 Labs: Abnormal Lab Results - Last 24 Hours (Table) 09/28/22 09/28/22 Range/Units 06:04 06:04 PT 24.2 H (9.9-11.9) sec INR 2.21 H (0.90-1.11) Sodium 126 L (135-145) mmol/L Carbon Dioxide 19.7 L (20.0-27.5) mmol/L Glucose 117 H (70-110) mg/dL Calcium 8.1 L (8.7-10.3) mg/dL Assessment and Plan Plan: Assessment: 1. Hyponatremia. Hypervolemic with ascites. Sodium level 126. Urine sodium less than 20 and urine osmolality 366 dated 09/19/2022. Cortisol level 9.2. 2. Liver cirrhosis. 3. Ascites status post paracentesis with 6.1 L drained 09/21/2022. 4. Hypokalemia from poor intake and GI losses. Replaced. Better. 5. Hypomagnesemia from poor intake and GI losses. Replaced. Better. Plan: Remains off IV fluids. Encourage protein intake. Maintain fluid restriction. Maintain midodrine. Paracentesis pending. Will give 25 g IV albumin before paracentesis and an additional 25 g of more than 5 L drained. Status post [facility] yesterday.
[2022-09-28] MEDS: ALBUMIN HUMAN 25% 50 ML in EMPTY BAG 1 BAG IVPB SCH ×2 (15:15→15:42)
--- NOTE | 2022-09-28 15:34 | P.PN ---
Subjective Progress Note Date: 09/28/22 Principal diagnosis: left foot wound and a positive blood culture Patient is a 71 year old female with multiple comorbidity patient did have alcohol liver disease/cirrhosis with multiple admission to the hospital for ascites and requiring paracentesis last admission was back in June with the patient did require paracentesis 2 during that admission patient also develop swelling to the left foot area patient did have a CT of the foot that was suggestive mostly hematoma no evidence of any abscess , patient presented to hospital with abdominal distention worsening ascites and need for paracentesis she did have a positive blood culture and a nonhealing wound to the left foot with a positive culture on today's evaluation that is 09/28/2022, the patient remains to be afebrile, the patient is breathing comfortably on room air. The patient denies chest pain or shortness of breath currently on room air , the patient denies any worsening abdominal pain or distention and apparently scheduled for paracentesis this afternoon per the nursing staff Objective - Vital Signs Vital signs: Vital Signs Temp 97.4 F L 09/28/22 08:00 Pulse 95 09/28/22 08:00 Resp 17 09/28/22 08:00 BP 92/59 09/28/22 08:00 Pulse Ox 98 09/28/22 08:00 FiO2 Intake & Output 09/27/22 09/28/22 09/28/22 18:59 06:59 18:59 Output Total 300 Balance -300 Output: Urine 300 Other: Voiding Method Incontinent Diaper Incontinent External Catheter Incontinent External Catheter # Voids 2 - Exam GENERAL DESCRIPTION: An elderly female lying in bed in no distress RESPIRATORY SYSTEM: Unlabored breathing , decreased breath sounds at bases HEART: S1 S2 regular rate and rhythm , ABDOMEN: Soft , abdominal distention EXTREMITIES: left foot dorsum wound with minimal purulent drainage - Labs CBC & Chem 7: 09/27/22 06:50 09/28/22 06:04 Labs: Abnormal Lab Results - Last 24 Hours (Table) 09/28/22 09/28/22 Range/Units 06:04 06:04 PT 24.2 H (9.9-11.9) sec INR 2.21 H (0.90-1.11) Sodium 126 L (135-145) mmol/L Carbon Dioxide 19.7 L (20.0-27.5) mmol/L Glucose 117 H (70-110) mg/dL Calcium 8.1 L (8.7-10.3) mg/dL Assessment and Plan (1) Bacteremia Current Visit: Yes Status: Acute Code(s): R78.81 - BACTEREMIA SNOMED Code(s): 3987672 (2) Wound of left foot Current Visit: Yes Status: Acute Code(s): S91.302A - UNSPECIFIED OPEN WOUND, LEFT FOOT, INITIAL ENCOUNTER SNOMED Code(s): 684340298 Plan: 1patient with positive blood culture finalized as coagulase negative staph likely skin contamination, blood culture has been repeated on 09/20/2022 and they have been negative so for 2patient with a nonhealing wound on the dorsum aspect of the left foot with a culture grew MSSA 3Patient to continue with cefazolin 2 g every 8 hours and local wound care with dry Aquacel silver dressing change daily and transitioned to oral antibiotics on discharge Time with Patient: Less than 30
[2022-09-28] MEDS ORDERED: ALBUMIN HUMAN 25% 50 ML in EMPTY BAG 1 BAG IVPB ONE ×2 (16:45→17:00)
--- NOTE | 2022-09-28 16:51 | US ---
EXAMINATION TYPE: US paracentesis abd w/image DATE OF EXAM: 09/28/2022 CLINICAL HISTORY: Ascites The procedure was discussed with the patient. The risks, complications, benefits, and alternatives we re discussed and any questions were answered. Informed consent was obtained. The patient was placed s upine on the ultrasound table and prepped and draped in the usual sterile fashion. All elements of maximal barrier technique were utilized. Ultrasound was used to lisbet an appropriate s ite in the left lower quadrant and access to the ascites was obtained with a paracentesis catheter. Approximately 5.9 liters of straw-colored fluid was removed. The patient was stable throughout the pr ocedure and remained stable upon discharge from Department of Radiology. IMPRESSION: Successful therapeutic paracentesis under ultrasound guidance.
[2022-09-28] MEDS: MAGNESIUM SULFATE-D5W PMX 1 GM in DEXTROSE/WATER 1 100ML.BAG IVPB SCH ×2 (18:30→22:05)
[2022-09-29] MEDS: MIDODRINE 5 MG TAB PO SCH ×3 (06:21→17:33)
[2022-09-29] MEDS: PANTOPRAZOLE 40 MG TABLET PO SCH (06:22)
[2022-09-29] MEDS: CYANOCOBALAMIN 500 MCG TAB PO SCH (07:58)
[2022-09-29] MEDS: METOPROLOL TARTRATE 12.5 MG TAB PO SCH ×2 (07:58→19:58)
[2022-09-29] MEDS: FOLIC ACID 1 MG TAB PO SCH (07:59)
[2022-09-29] MEDS: MORPHINE SULFATE 2 MG/ML SYRINGE IVP PRN (07:59)
[2022-09-29] MEDS: MULTIVITAMINS, THERA 1 EACH TAB PO SCH (07:59)
[2022-09-29] MEDS: SPIRONOLACTONE 25 MG TAB PO SCH (07:59)
[2022-09-29] MEDS: HEPARIN SODIUM,PORCINE/PF 5,000 UNIT/0.5 ML SYRINGE SQ SCH (07:59)
[2022-09-29] MEDS: ONDANSETRON 4 MG/2 ML VIAL IVP PRN (08:07)
[2022-09-29 11:27] LABS: Magnesium 2.2 mg/dL (1.5-2.4)
[2022-09-29] MEDS ORDERED: BENZOCAINE/MENTHOL LOZENG 1 EACH LOZENGE MUCOUS MEM PRN (11:51)
[2022-09-29 12:10] LABS: African American GFR (CKD) 90.2 (60.0-200.0); Anion Gap 8.5 mmol/L (10.00-18.00); BUN/Creat Ratio 13.82 Ratio (12.00-20.00); Blood Urea Nitrogen 10.5 mg/dL (9.0-27.0); Calcium 8.1 mg/dL (8.7-10.3); Carbon Dioxide 22.2 mmol/L (20.0-27.5); Non-African American GFR(CKD) 77.8 (60.0-200.0); Potassium 4.9 mmol/L (3.5-5.5)
--- NOTE | 2022-09-29 12:26 | P.PN ---
Subjective Progress Note Date: 09/25/22 Pleasant 71 years old female with multiple medical problems as below. Presents because of c/o swelling to abdomen with short of breath hx liver cirrohsis lung sounds crackles bilat jaundice eye with wound to left foot. She comes because of abdominal distention and some little dyspnea, no significant chest pain, no coughing, she has some mild periumbilical abdominal pain for the last 10 days, nonspecific, nonradiating She denies any headache dizziness or weakness or numbness, no urinary complaints. No vomiting or diarrhea. Also patient is awake and alert to place and person but she is disoriented to time, she thought she came to the hospital 1 week ago but actually she came last night. Patient was updated Patient also she has a chronic ulcer in her left foot and there is still some discharge but there is no surrounding cellulitis and x-ray looks negative. Patient was recently discharged from this hospital 06/10-07/16 for alcoholic liver hepatitis and left foot infection and she underwent paracentesis 2. Also she had hypernatremia 106 went up to 125 open discharge Currently presents also with abdominal distention and shortness of breath. She denies a smoking or illicit drugs, first she told me she drinks wine only one cup twice a month but then when I ask her more she said last week she drink twice however she denies daily drinking of alcohol. At baseline she walks with a walker Vitals looks stable, afebrile Sodium 117-118 on admission. Lactic acid elevated 4.1, currently 2.3. Bilirubin elevated 4.9-6.2, last time she was discharged on bilirubin of 3.6 and on 08/14/2022 was 5.7 Mildly elevated liver enzymes, AST 4.9, ALT normal 24. Urine osmolality is 291 Serum alcohol: Less than 10 Foot x-ray showing no fracture dislocation In the emergency room she received Unasyn, ceftriaxone 1 and placed on normal saline 75 mL/h with nephrology been consulted 09/21/2022 Patient is currently in the MICU. Lying in the bed. Awake alert and oriented x3. Patient is status post paracentesis ultrasound-guided with 6.1 L fluid removal. Patient was hypotensive postoperatively and was started pressor support. Patient was also given albumin. Blood cultures grew MSSA. Antibiotics changed to cefazolin. Vancomycin has been discontinued. Fluid cytology is negative for SBP. WBC count 23. Laboratory data showed WBC 9.0 hemoglobin 11.8 and platelets 134 Sodium 122 potassium 3.1 chloride 94 bicarb is 19 BUN 7 creatinine 0.63 and calcium 7.4. Pulmonary and ID and nephrology is on board. 09/22/2022 Patient is currently resting in the bed. Awake alert and oriented x3. No complaints of chest pain or worsening shortness of breath. Patient is off pressor support. Latham catheter has been discontinued. Patient was started on midodrine. Laboratory data showed sodium level increased to 127 potassium 3.6 chloride 97 blood sugar 105 and magnesium level increase it to 2.1. Albumin 2.8. 09/23/2022 Patient in the MICU and awaiting to be transferred to telemetry unit. Patient is resting in bed. Awake alert and oriented. No complaints of chest pain or worsening shortness of breath. Nausea vomiting abdominal pain. Patient was tachycardic last night and was having PVCs. Patient was started on low-dose beta-yoana. Heart rate is better controlled Blood pressure is stable and is on midodrine. Headache or dizziness or lightheadedness. Patient is being current antibiotics and follow-up cefazolin for foot infection. 09/24/2022 Patient is currently resting in bed. Awake alert and oriented x3. No complaints of chest pain or shortness of breath. Blood pressure is stable. Continue on midodrine. Heart rate is in 70s. Patient does adequate have urine output. Continued on Lasix and Aldactone. Denies any complaints of headache or dizziness or lightheadedness. Patient denies any antibiotics -cefazolin Laboratory data showed WBC 9.6 hemoglobin 11.4 and platelets 135, sodium 125, potassium 3.3 chloride 94 bicarb is 25 BUN 3 and creatinine 0.64 and magnesium 1.2 which is being replaced. Albumin 2.6. Nephrology and ID is on board. 09/25/2022 Patient is currently resting in bed. Awake alert and oriented. No complaints of chest pain or shortness of breath. Denies any complaints of foot pain. No nausea vomiting abdominal pain or diarrhea. Repeat blood cultur es have been negative. Patient is being current on cefazolin and wound care is being done. Laboratory data showed a sodium level 124 potassium 4.5 chloride 95 bicarb is 25 BUN 5 and creatinine 0.63 and calcium 7.5. Nephrology is on board. Current medications reviewed. Objective - Vital Signs Vital signs: Vital Signs Temp 97.8 F 09/25/22 20:00 Pulse 72 09/25/22 20:00 Resp 17 09/25/22 20:00 BP 97/58 09/25/22 20:00 Pulse Ox 92 L 09/25/22 20:00 FiO2 Intake & Output 09/25/22 09/25/22 09/26/22 06:59 18:59 06:59 Intake Total 490 200 Output Total 300 Balance 490 -100 Intake: IV 10 Invasive Line 3 10 Oral 480 200 Output: Urine 300 Other: Voiding Method External Catheter # Bowel Movements 1 - Exam PHYSICAL EXAMINATION: Patient is lying in the bed comfortably, no acute distress, awake alert and oriented.. HEENT: Normocephalic. Neck is supple. Pupils reactive. Nostrils clear. Oral cavity is moist. Neck reveals no JVD, carotid bruits, or thyromegaly. CHEST EXAMINATION: Trachea is central. Symmetrical expansion. Lung cervantes clear to auscultation and percussion. CARDIAC: Normal S1, S2 with no gallops. No murmurs ABDOMEN: Soft. Distended with ascites. Bowel sounds present. nontender. Extremities: Bilateral lower extremity trace edema. No clubbing or cyanosis Neurologically awake, alert, oriented x3 with well-coordinated movements. No focal deficits noted Skin: No rash or skin lesions. Psychiatric: Cooperative. Nonsuicidal Musculoskeletal: No joint swelling or deformity. Normal range of motion. - Labs CBC & Chem 7: 09/27/22 06:50 09/29/22 06:35 Labs: Abnormal Lab Results - Last 24 Hours (Table) 09/25/22 09/25/22 Range/Units 05:34 20:15 Sodium 124 L 124 L (137-145) mmol/L Chloride 95 L (98-107) mmol/L BUN 5 L (7-17) mg/dL Calcium 7.5 L (8.4-10.2) mg/dL Microbiology - Last 24 Hours (Table) 09/20/22 06:00 Blood Culture - Preliminary Blood No Growth after 120 hours Assessment and Plan Assessment: De-Compensated alcoholic liver disease with possible cirrhosis with ascites and jaundice. s/ p paracentesis Post paracentesis hypotension. Status post albumin dose and was requiring p ressor support.Currently off pressors. Started on midodrine.. Hyponatremia, Hypervolemia and also related to alcohol use disorder Elevated lactic acid left foot cellulitis COPD, no acute exacerbation History of GERD Hypertension Hyperlipidemia History of rheumatoid arthritis COPD, GERD/Reflux, Hyperlipidemia, Hypertension, Liver Disease, Rheumatoid Arthritis (RA) Plan: Patient is status post paracentesis. off norepinephrine due to hypotension also albumin IV was given. Patient was started on midodrine Continue with Aldactone, torsemide Continue to follow sodium level. Replaced magnesium and potassium. Continue with home medication of Ultram when necessary Antibiotics changed to cefazolin as per ID recommendations. DVT prophylaxis: Subcutaneous heparin GI Prophylaxis: Ppi PT/OT: Pending Prognosis is guarded
--- NOTE | 2022-09-29 12:28 | P.PN ---
Subjective Progress Note Date: 09/26/22 Pleasant 71 years old female with multiple medical problems as below. Presents because of c/o swelling to abdomen with short of breath hx liver cirrohsis lung sounds crackles bilat jaundice eye with wound to left foot. She comes because of abdominal distention and some little dyspnea, no significant chest pain, no coughing, she has some mild periumbilical abdominal pain for the last 10 days, nonspecific, nonradiating She denies any headache dizziness or weakness or numbness, no urinary complaints. No vomiting or diarrhea. Also patient is awake and alert to place and person but she is disoriented to time, she thought she came to the hospital 1 week ago but actually she came last night. Patient was updated Patient also she has a chronic ulcer in her left foot and there is still some discharge but there is no surrounding cellulitis and x-ray looks negative. Patient was recently discharged from this hospital 06/10-07/16 for alcoholic liver hepatitis and left foot infection and she underwent paracentesis 2. Also she had hypernatremia 106 went up to 125 open discharge Currently presents also with abdominal distention and shortness of breath. She denies a smoking or illicit drugs, first she told me she drinks wine only one cup twice a month but then when I ask her more she said last week she drink twice however she denies daily drinking of alcohol. At baseline she walks with a walker Vitals looks stable, afebrile Sodium 117-118 on admission. Lactic acid elevated 4.1, currently 2.3. Bilirubin elevated 4.9-6.2, last time she was discharged on bilirubin of 3.6 and on 08/14/2022 was 5.7 Mildly elevated liver enzymes, AST 4.9, ALT normal 24. Urine osmolality is 291 Serum alcohol: Less than 10 Foot x-ray showing no fracture dislocation In the emergency room she received Unasyn, ceftriaxone 1 and placed on normal saline 75 mL/h with nephrology been consulted 09/21/2022 Patient is currently in the MICU. Lying in the bed. Awake alert and oriented x3. Patient is status post paracentesis ultrasound-guided with 6.1 L fluid removal. Patient was hypotensive postoperatively and was started pressor support. Patient was also given albumin. Blood cultures grew MSSA. Antibiotics changed to cefazolin. Vancomycin has been discontinued. Fluid cytology is negative for SBP. WBC count 23. Laboratory data showed WBC 9.0 hemoglobin 11.8 and platelets 134 Sodium 122 potassium 3.1 chloride 94 bicarb is 19 BUN 7 creatinine 0.63 and calcium 7.4. Pulmonary and ID and nephrology is on board. 09/22/2022 Patient is currently resting in the bed. Awake alert and oriented x3. No complaints of chest pain or worsening shortness of breath. Patient is off pressor support. Latham catheter has been discontinued. Patient was started on midodrine. Laboratory data showed sodium level increased to 127 potassium 3.6 chloride 97 blood sugar 105 and magnesium level increase it to 2.1. Albumin 2.8. 09/23/2022 Patient in the MICU and awaiting to be transferred to telemetry unit. Patient is resting in bed. Awake alert and oriented. No complaints of chest pain or worsening shortness of breath. Nausea vomiting abdominal pain. Patient was tachycardic last night and was having PVCs. Patient was started on low-dose beta-yoana. Heart rate is better controlled Blood pressure is stable and is on midodrine. Headache or dizziness or lightheadedness. Patient is being current antibiotics and follow-up cefazolin for foot infection. 09/24/2022 Patient is currently resting in bed. Awake alert and oriented x3. No complaints of chest pain or shortness of breath. Blood pressure is stable. Continue on midodrine. Heart rate is in 70s. Patient does adequate have urine output. Continued on Lasix and Aldactone. Denies any complaints of headache or dizziness or lightheadedness. Patient denies any antibiotics -cefazolin Laboratory data showed WBC 9.6 hemoglobin 11.4 and platelets 135, sodium 125, potassium 3.3 chloride 94 bicarb is 25 BUN 3 and creatinine 0.64 and magnesium 1.2 which is being replaced. Albumin 2.6. Nephrology and ID is on board. 09/25/2022 Patient is currently resting in bed. Awake alert and oriented. No complaints of chest pain or shortness of breath. Denies any complaints of foot pain. No nausea vomiting abdominal pain or diarrhea. Repeat blood cultur es have been negative. Patient is being current on cefazolin and wound care is being done. Laboratory data showed a sodium level 124 potassium 4.5 chloride 95 bicarb is 25 BUN 5 and creatinine 0.63 and calcium 7.5. Nephrology is on board. 09/26/2022 Patient is resting in the bed. Awake alert and oriented x3. Sodium level improved to 128 today. Denies any complaints of abdominal pain. No nausea vomiting or diarrhea. Blood pressure did improve. Patient is also on antibiotics for left foot infection with cefazolin. Laboratory data showed sodium 128 potassium 4.6 chloride 95 bicarb is 22.3 BUN 6.7 creatinine 0.8 and magnesium 1.5 which is being replaced. Nephrology and ID is on board. Patient may require another paracentesis once blood pressure is stable. Current medications reviewed. Objective - Vital Signs Vital signs: Vital Signs Temp 97.9 F 09/26/22 20:00 Pulse 81 09/26/22 20:00 Resp 17 09/26/22 20:00 BP 88/56 09/26/22 20:00 Pulse Ox 100 09/26/22 20:00 FiO2 Intake & Output 09/26/22 09/26/22 09/27/22 06:59 18:59 06:59 Output Total 800 475 Balance -800 -475 Weight 71.5 kg Output: Urine 800 475 Other: Voiding Method External Catheter - Exam PHYSICAL EXAMINATION: Patient is lying in the bed comfortably, no acute distress, awake alert and oriented.. HEENT: Normocephalic. Neck is supple. Pupils reactive. Nostrils clear. Oral cavity is moist. Neck reveals no JVD, carotid bruits, or thyromegaly. CHEST EXAMINATION: Trachea is central. Symmetrical expansion. Lung cervantes clear to auscultation and percussion. CARDIAC: Normal S1, S2 with no gallops. No murmurs ABDOMEN: Soft. Distended with ascites. Bowel sounds present. nontender. Extremities: Bilateral lower extremity trace edema. No clubbing or cyanosis Neurologically awake, alert, oriented x3 with well-coordinated movements. No focal deficits noted Skin: No rash or skin lesions. Psychiatric: Cooperative. Nonsuicidal Musculoskeletal: No joint swelling or deformity. Normal range of motion. - Labs CBC & Chem 7: 09/27/22 06:50 09/29/22 06:35 Labs: Abnormal Lab Results - Last 24 Hours (Table) 09/26/22 09/26/22 Range/Units 05:51 17:51 PT 37.4 H (9.0-12.0) sec INR 3.8 H (<1.2) Sodium 128 L (135-145) mmol/L Chloride 95 L (96-109) mmol/L BUN 6.7 L (9.0-27.0) mg/dL BUN/Creatinine Ratio 8.61 L (12.00-20.00) Ratio Calcium 8.0 L (8.7-10.3) mg/dL Microbiology - Last 24 Hours (Table) 09/20/22 06:00 Blood Culture - Final Blood No Growth after 144 hours Assessment and Plan Assessment: De-Compensated alcoholic liver disease with possible cirrhosis with ascites and jaundice. s/ p paracentesis Post paracentesis hypotension. Status post albumin dose and was requiring pressor support.Currently off pressors. Started on midodrine.. Hyponatremia, Hypervolemia and also related to alcohol use disorder Elevated lactic acid left foot cellulitis COPD, no acute exacerbation History of GERD Hypertension Hyperlipidemia History of rheumatoid arthritis COPD, GERD/Reflux, Hyperlipidemia, Hypertension, Liver Disease, Rheumatoid Arthritis (RA) Plan: Patient is status post paracentesis. off norepinephrine due to hypotension also albumin IV was given. Patient was started on midodrine Continue with Aldactone, torsemide Continue to follow sodium level. Replaced magnesium and potassium. Continue with home medication of Ultram when necessary Antibiotics changed to cefazolin as per ID recommendations. DVT prophylaxis: Subcutaneous heparin GI Prophylaxis: Ppi PT/OT: Pending Prognosis is guarded Time with Patient: Greater than 30
--- NOTE | 2022-09-29 12:29 | P.PN ---
Subjective Patient is seen in follow-up for hyponatremia. Sodium level better at 128. Oral intake is fair. Nonoliguric. Has external catheter. Blood pressure on the lower side. Underwent paracentesis of 5.9 liters drained yesterday. Vital signs are stable. General: Awake. No acute distress. HEENT: Head exam is unremarkable. LUNGS: Breath sounds decreased. HEART: Rate and Rhythm are regular. ABDOMEN: Soft, mild distention. EXTREMITITES: Trace edema. Objective - Vital Signs Vital signs: Vital Signs Temp 98.3 F 09/29/22 08:00 Pulse 94 09/29/22 08:00 Resp 18 09/29/22 08:00 BP 94/56 09/29/22 08:00 Pulse Ox 92 L 09/29/22 08:00 FiO2 Intake & Output 09/28/22 09/29/22 09/29/22 18:59 06:59 18:59 Other: Voiding Method Incontinent Incontinent # Voids 2 4 - Labs CBC & Chem 7: 09/27/22 06:50 09/29/22 06:35 Labs: Abnormal Lab Results - Last 24 Hours (Table) 09/29/22 Range/Units 06:35 Sodium 128 L (135-145) mmol/L Anion Gap 8.50 L (10.00-18.00) mmol/L Calcium 8.1 L (8.7-10.3) mg/dL Assessment and Plan Plan: Assessment: 1. Hyponatremia. Hypervolemic with ascites. Sodium level 128. Urine sodium less than 20 and urine osmolality 366 dated 09/19/2022. Cortisol level 9.2. TSH 6 with normal free T4 dated 09/18/2022. 2. Liver cirrhosis. 3. Ascites status post paracentesis with 6.1 L drained 09/21/2022; 5.9 L drained 09/28/2022. 4. Hypokalemia from poor intake and GI losses. Replaced. Better. 5. Hypomagnesemia from poor intake and GI losses. Improved. Plan: Encourage protein intake. Maintain fluid restriction. Maintain midodrine. Maintain spironolactone. Add Lasix 20 mg daily.
--- NOTE | 2022-09-29 12:31 | P.PN ---
Subjective Progress Note Date: 09/27/22 Pleasant 71 years old female with multiple medical problems as below. Presents because of c/o swelling to abdomen with short of breath hx liver cirrohsis lung sounds crackles bilat jaundice eye with wound to left foot. She comes because of abdominal distention and some little dyspnea, no significant chest pain, no coughing, she has some mild periumbilical abdominal pain for the last 10 days, nonspecific, nonradiating She denies any headache dizziness or weakness or numbness, no urinary complaints. No vomiting or diarrhea. Also patient is awake and alert to place and person but she is disoriented to time, she thought she came to the hospital 1 week ago but actually she came last night. Patient was updated Patient also she has a chronic ulcer in her left foot and there is still some discharge but there is no surrounding cellulitis and x-ray looks negative. Patient was recently discharged from this hospital 06/10-07/16 for alcoholic liver hepatitis and left foot infection and she underwent paracentesis 2. Also she had hypernatremia 106 went up to 125 open discharge Currently presents also with abdominal distention and shortness of breath. She denies a smoking or illicit drugs, first she told me she drinks wine only one cup twice a month but then when I ask her more she said last week she drink twice however she denies daily drinking of alcohol. At baseline she walks with a walker Vitals looks stable, afebrile Sodium 117-118 on admission. Lactic acid elevated 4.1, currently 2.3. Bilirubin elevated 4.9-6.2, last time she was discharged on bilirubin of 3.6 and on 08/14/2022 was 5.7 Mildly elevated liver enzymes, AST 4.9, ALT normal 24. Urine osmolality is 291 Serum alcohol: Less than 10 Foot x-ray showing no fracture dislocation In the emergency room she received Unasyn, ceftriaxone 1 and placed on normal saline 75 mL/h with nephrology been consulted 09/21/2022 Patient is currently in the MICU. Lying in the bed. Awake alert and oriented x3. Patient is status post paracentesis ultrasound-guided with 6.1 L fluid removal. Patient was hypotensive postoperatively and was started pressor support. Patient was also given albumin. Blood cultures grew MSSA. Antibiotics changed to cefazolin. Vancomycin has been discontinued. Fluid cytology is negative for SBP. WBC count 23. Laboratory data showed WBC 9.0 hemoglobin 11.8 and platelets 134 Sodium 122 potassium 3.1 chloride 94 bicarb is 19 BUN 7 creatinine 0.63 and calcium 7.4. Pulmonary and ID and nephrology is on board. 09/22/2022 Patient is currently resting in the bed. Awake alert and oriented x3. No complaints of chest pain or worsening shortness of breath. Patient is off pressor support. Latham catheter has been discontinued. Patient was started on midodrine. Laboratory data showed sodium level increased to 127 potassium 3.6 chloride 97 blood sugar 105 and magnesium level increase it to 2.1. Albumin 2.8. 09/23/2022 Patient in the MICU and awaiting to be transferred to telemetry unit. Patient is resting in bed. Awake alert and oriented. No complaints of chest pain or worsening shortness of breath. Nausea vomiting abdominal pain. Patient was tachycardic last night and was having PVCs. Patient was started on low-dose beta-yoana. Heart rate is better controlled Blood pressure is stable and is on midodrine. Headache or dizziness or lightheadedness. Patient is being current antibiotics and follow-up cefazolin for foot infection. 09/24/2022 Patient is currently resting in bed. Awake alert and oriented x3. No complaints of chest pain or shortness of breath. Blood pressure is stable. Continue on midodrine. Heart rate is in 70s. Patient does adequate have urine output. Continued on Lasix and Aldactone. Denies any complaints of headache or dizziness or lightheadedness. Patient denies any antibiotics -cefazolin Laboratory data showed WBC 9.6 hemoglobin 11.4 and platelets 135, sodium 125, potassium 3.3 chloride 94 bicarb is 25 BUN 3 and creatinine 0.64 and magnesium 1.2 which is being replaced. Albumin 2.6. Nephrology and ID is on board. 09/25/2022 Patient is currently resting in bed. Awake alert and oriented. No complaints of chest pain or shortness of breath. Denies any complaints of foot pain. No nausea vomiting abdominal pain or diarrhea. Repeat blood cultur es have been negative. Patient is being current on cefazolin and wound care is being done. Laboratory data showed a sodium level 124 potassium 4.5 chloride 95 bicarb is 25 BUN 5 and creatinine 0.63 and calcium 7.5. Nephrology is on board. 09/26/2022 Patient is resting in the bed. Awake alert and oriented x3. Sodium level improved to 128 today. Denies any complaints of abdominal pain. No nausea vomiting or diarrhea. Blood pressure did improve. Patient is also on antibiotics for left foot infection with cefazolin. Laboratory data showed sodium 128 potassium 4.6 chloride 95 bicarb is 22.3 BUN 6.7 creatinine 0.8 and magnesium 1.5 which is being replaced. Nephrology and ID is on board. Patient may require another paracentesis once blood pressure is stable. 09/27/2022 Patient is currently on the medical floor. Awake alert and oriented x3. No complaints of chest pain or abdominal pain. No nausea vomiting or diarrhea. Abdomen is distended again and will require paracentesis and repeat paracentesis was ordered. Sodium level otherwise down to 125 today. Blood pressures low today 95/64. Nephrology is on board. ID is also following. Patient will require paracentesis again. WBC 9.8 hemoglobin 10.5 and platelets 120 sodium 125 potassium 4.5 chloride 96 bicarb is 18.8 BUN 6.9 and creatinine 0.8 and calcium 8.0. Current medications reviewed. Objective - Vital Signs Vital signs: Vital Signs Temp 98.3 F 09/27/22 20:00 Pulse 99 09/27/22 20:00 Resp 18 09/27/22 20:00 BP 99/56 09/27/22 20:00 Pulse Ox 95 09/27/22 20:00 FiO2 Intake & Output 09/27/22 09/27/22 09/28/22 06:59 18:59 06:59 Intake Total 240 Output Total 600 300 Balance -360 -300 Intake: Oral 240 Output: Urine 600 300 Other: Voiding Method Incontinent External Catheter - Exam PHYSICAL EXAMINATION: Patient is lying in the bed comfortably, no acute distress, awake alert and oriented.. HEENT: Normocephalic. Neck is supple. Pupils reactive. Nostrils clear. Oral cavity is moist. Neck reveals no JVD, carotid bruits, or thyromegaly. CHEST EXAMINATION: Trachea is central. Symmetrical expansion. Lung cervantes clear to auscultation and percussion. CARDIAC: Normal S1, S2 with no gallops. No murmurs ABDOMEN: Soft. Distended with ascites. Bowel sounds present. nontender. Extremities: Bilateral lower extremity trace edema. No clubbing or cyanosis Neurologically awake, alert, oriented x3 with well-coordinated movements. No focal deficits noted Skin: No rash or skin lesions. Psychiatric: Cooperative. Nonsuicidal Musculoskeletal: No joint swelling or deformity. Normal range of motion. - Labs CBC & Chem 7: 09/27/22 06:50 09/29/22 06:35 Labs: Abnormal Lab Results - Last 24 Hours (Table) 09/27/22 09/27/22 09/27/22 Range/Units 06:50 06:50 10:04 RBC 3.05 L (4.10-5.20) X 10*6/uL Hgb 10.5 L (12.0-15.0) g/dL Hct 31.3 L (37.2-46.3) % MCV 102.6 H (80.0-97.0) fL MCH 34.4 H (27.0-32.0) pg RDW 16.4 H (11.5-14.5) % Plt Count 120 L (140-440) X 10*3/uL Plt Count Comment DECREASED A Immature Gran # 0.05 H (0.00-0.04) X 10*3/uL Monocytes # 1.50 H (0.20-1.00) X 10*3/uL PT 36.4 H (9.0-12.0) sec INR 3.7 H (<1.2) Sodium 125 L (135-145) mmol/L Carbon Dioxide 18.8 L (20.0-27.5) mmol/L BUN 6.9 L (9.0-27.0) mg/dL BUN/Creatinine Ratio 8.63 L (12.00-20.00) Ratio Calcium 8.0 L (8.7-10.3) mg/dL Assessment and Plan Assessment: De-Compensated alcoholic liver disease with possible cirrhosis with ascites and jaundice. s/ p paracentesis Post paracentesis hypotension. Status post albumin dose and was requiring pressor support.Currently off pressors. Started on midodrine.. Hyponatremia, Hypervolemia and also related to alcohol use disorder Elevated lactic acid left foot cellulitis COPD, no acute exacerbation History of GERD Hypertension Hyperlipidemia History of rheumatoid arthritis COPD, GERD/Reflux, Hyperlipidemia, Hypertension, Liver Disease, Rheumatoid Arthritis (RA) Plan: repaeat paracentesis Patient is status post paracentesis. off norepinephrine due to hypotension also albumin IV was given. Patient was started on midodrine Continue with Aldactone, torsemide Continue to follow sodium level. Replaced magnesium and potassium. Continue with home medication of Ultram when necessary Antibiotics changed to cefazolin as per ID recommendations. DVT prophylaxis: Subcutaneous heparin GI Prophylaxis: Ppi PT/OT: Pending Prognosis is guarded Time with Patient: Greater than 30
--- NOTE | 2022-09-29 12:32 | P.PN ---
Subjective Progress Note Date: 09/28/22 Pleasant 71 years old female with multiple medical problems as below. Presents because of c/o swelling to abdomen with short of breath hx liver cirrohsis lung sounds crackles bilat jaundice eye with wound to left foot. She comes because of abdominal distention and some little dyspnea, no significant chest pain, no coughing, she has some mild periumbilical abdominal pain for the last 10 days, nonspecific, nonradiating She denies any headache dizziness or weakness or numbness, no urinary complaints. No vomiting or diarrhea. Also patient is awake and alert to place and person but she is disoriented to time, she thought she came to the hospital 1 week ago but actually she came last night. Patient was updated Patient also she has a chronic ulcer in her left foot and there is still some discharge but there is no surrounding cellulitis and x-ray looks negative. Patient was recently discharged from this hospital 06/10-07/16 for alcoholic liver hepatitis and left foot infection and she underwent paracentesis 2. Also she had hypernatremia 106 went up to 125 open discharge Currently presents also with abdominal distention and shortness of breath. She denies a smoking or illicit drugs, first she told me she drinks wine only one cup twice a month but then when I ask her more she said last week she drink twice however she denies daily drinking of alcohol. At baseline she walks with a walker Vitals looks stable, afebrile Sodium 117-118 on admission. Lactic acid elevated 4.1, currently 2.3. Bilirubin elevated 4.9-6.2, last time she was discharged on bilirubin of 3.6 and on 08/14/2022 was 5.7 Mildly elevated liver enzymes, AST 4.9, ALT normal 24. Urine osmolality is 291 Serum alcohol: Less than 10 Foot x-ray showing no fracture dislocation In the emergency room she received Unasyn, ceftriaxone 1 and placed on normal saline 75 mL/h with nephrology been consulted 09/21/2022 Patient is currently in the MICU. Lying in the bed. Awake alert and oriented x3. Patient is status post paracentesis ultrasound-guided with 6.1 L fluid removal. Patient was hypotensive postoperatively and was started pressor support. Patient was also given albumin. Blood cultures grew MSSA. Antibiotics changed to cefazolin. Vancomycin has been discontinued. Fluid cytology is negative for SBP. WBC count 23. Laboratory data showed WBC 9.0 hemoglobin 11.8 and platelets 134 Sodium 122 potassium 3.1 chloride 94 bicarb is 19 BUN 7 creatinine 0.63 and calcium 7.4. Pulmonary and ID and nephrology is on board. 09/22/2022 Patient is currently resting in the bed. Awake alert and oriented x3. No complaints of chest pain or worsening shortness of breath. Patient is off pressor support. Latham catheter has been discontinued. Patient was started on midodrine. Laboratory data showed sodium level increased to 127 potassium 3.6 chloride 97 blood sugar 105 and magnesium level increase it to 2.1. Albumin 2.8. 09/23/2022 Patient in the MICU and awaiting to be transferred to telemetry unit. Patient is resting in bed. Awake alert and oriented. No complaints of chest pain or worsening shortness of breath. Nausea vomiting abdominal pain. Patient was tachycardic last night and was having PVCs. Patient was started on low-dose beta-yoana. Heart rate is better controlled Blood pressure is stable and is on midodrine. Headache or dizziness or lightheadedness. Patient is being current antibiotics and follow-up cefazolin for foot infection. 09/24/2022 Patient is currently resting in bed. Awake alert and oriented x3. No complaints of chest pain or shortness of breath. Blood pressure is stable. Continue on midodrine. Heart rate is in 70s. Patient does adequate have urine output. Continued on Lasix and Aldactone. Denies any complaints of headache or dizziness or lightheadedness. Patient denies any antibiotics -cefazolin Laboratory data showed WBC 9.6 hemoglobin 11.4 and platelets 135, sodium 125, potassium 3.3 chloride 94 bicarb is 25 BUN 3 and creatinine 0.64 and magnesium 1.2 which is being replaced. Albumin 2.6. Nephrology and ID is on board. 09/25/2022 Patient is currently resting in bed. Awake alert and oriented. No complaints of chest pain or shortness of breath. Denies any complaints of foot pain. No nausea vomiting abdominal pain or diarrhea. Repeat blood cultur es have been negative. Patient is being current on cefazolin and wound care is being done. Laboratory data showed a sodium level 124 potassium 4.5 chloride 95 bicarb is 25 BUN 5 and creatinine 0.63 and calcium 7.5. Nephrology is on board. 09/26/2022 Patient is resting in the bed. Awake alert and oriented x3. Sodium level improved to 128 today. Denies any complaints of abdominal pain. No nausea vomiting or diarrhea. Blood pressure did improve. Patient is also on antibiotics for left foot infection with cefazolin. Laboratory data showed sodium 128 potassium 4.6 chloride 95 bicarb is 22.3 BUN 6.7 creatinine 0.8 and magnesium 1.5 which is being replaced. Nephrology and ID is on board. Patient may require another paracentesis once blood pressure is stable. 09/27/2022 Patient is currently on the medical floor. Awake alert and oriented x3. No complaints of chest pain or abdominal pain. No nausea vomiting or diarrhea. Abdomen is distended again and will require paracentesis and repeat paracentesis was ordered. Sodium level otherwise down to 125 today. Blood pressures low today 95/64. Nephrology is on board. ID is also following. Patient will require paracentesis again. WBC 9.8 hemoglobin 10.5 and platelets 120 sodium 125 potassium 4.5 chloride 96 bicarb is 18.8 BUN 6.9 and creatinine 0.8 and calcium 8.0. 09/28/2022 Patient is scheduled for paracentesis again today. Patient will be given albumin postprocedure no nausea vomiting or diarrhea. Patient is being continu ed on cefazolin for foot infection. ID and nephrology is on board. No complaints of chest pain or shortness of breath. Patient has been afebrile. Anticipate discharge once blood pressure is stable postprocedure and follow-up sodium level. Current medications reviewed. Objective - Vital Signs Vital signs: Vital Signs Temp 98.6 F 09/28/22 20:00 Pulse 97 09/28/22 20:00 Resp 16 09/28/22 20:00 BP 90/51 09/28/22 20:00 Pulse Ox 97 09/28/22 20:00 FiO2 Intake & Output 09/28/22 09/28/22 09/29/22 06:59 18:59 06:59 Other: Voiding Method Diaper Incontinent Incontinent External Catheter # Voids 2 2 - Exam PHYSICAL EXAMINATION: Patient is lying in the bed comfortably, no acute distress, awake alert and oriented.. HEENT: Normocephalic. Neck is supple. Pupils reactive. Nostrils clear. Oral cavity is moist. Neck reveals no JVD, carotid bruits, or thyromegaly. CHEST EXAMINATION: Trachea is central. Symmetrical expansion. Lung cervantes clear to auscultation and percussion. CARDIAC: Normal S1, S2 with no gallops. No murmurs ABDOMEN: Soft. Distended with ascites. Bowel sounds present. nontender. Extremities: Bilateral lower extremity trace edema. No clubbing or cyanosis Neurologically awake, alert, oriented x3 with well-coordinated movements. No focal deficits noted Skin: No rash or skin lesions. Psychiatric: Cooperative. Nonsuicidal Musculoskeletal: No joint swelling or deformity. Normal range of motion. - Labs CBC & Chem 7: 09/27/22 06:50 09/29/22 06:35 Labs: Abnormal Lab Results - Last 24 Hours (Table) 09/28/22 09/28/22 Range/Units 06:04 06:04 PT 24.2 H (9.9-11.9) sec INR 2.21 H (0.90-1.11) Sodium 126 L (135-145) mmol/L Carbon Dioxide 19.7 L (20.0-27.5) mmol/L Glucose 117 H (70-110) mg/dL Calcium 8.1 L (8.7-10.3) mg/dL Assessment and Plan Assessment: De-Compensated alcoholic liver disease with possible cirrhosis with ascites and jaundice. s/ p paracentesis Post paracentesis hypotension. Status post albumin dose and was requiring pressor support.Currently off pressors. Started on midodrine.. Hyponatremia, Hypervolemia and also related to alcohol use disorder Elevated lactic acid left foot cellulitis COPD, no acute exacerbation History of GERD Hypertension Hyperlipidemia History of rheumatoid arthritis COPD, GERD/Reflux, Hyperlipidemia, Hypertension, Liver Disease, Rheumatoid Arthritis (RA) Plan: Repeat paracentesis today. Albumin postprocedure was ordered. Follow blood pressure closely. Patient did have prior paracentesis. requiring norepinephrine due to hypotension also albumin IV was given. Patient was started on midodrine Continue with Aldactone, torsemide Continue to follow sodium level. Replaced magnesium and potassium. Continue with home medication of Ultram when necessary Antibiotics changed to cefazolin as per ID recommendations. DVT prophylaxis: Subcutaneous heparin GI Prophylaxis: Ppi PT/OT: Pending Prognosis is guarded Time with Patient: Greater than 30
[2022-09-29] MEDS: FUROSEMIDE 20 MG TAB PO SCH (13:24)
--- NOTE | 2022-09-29 15:06 | P.PN ---
Subjective Progress Note Date: 09/29/22 Principal diagnosis: left foot wound and a positive blood culture Patient is a 71 year old female with multiple comorbidity patient did have alcohol liver disease/cirrhosis with multiple admission to the hospital for ascites and requiring paracentesis last admission was back in June with the patient did require paracentesis 2 during that admission patient also develop swelling to the left foot area patient did have a CT of the foot that was suggestive mostly hematoma no evidence of any abscess , patient presented to hospital with abdominal distention worsening ascites and need for paracentesis she did have a positive blood culture and a nonhealing wound to the left foot with a positive culture , the patient did have a repeat paracentesis done on 09/28/2022 with removal of 5.9 L straw-colored fluid on today's evaluation that is 09/29/2022, the patient continues to be afebrile, the patient is breathing comfortably on room air. The patient denies chest pain or shortness of breath , the patient abdominal distention and pain has decreased in intensity and denies pain to the left foot wound area Objective - Vital Signs Vital signs: Vital Signs Temp 98.3 F 09/29/22 08:00 Pulse 94 09/29/22 08:00 Resp 18 09/29/22 08:00 BP 94/56 09/29/22 08:00 Pulse Ox 92 L 09/29/22 08:00 FiO2 Intake & Output 09/28/22 09/29/22 09/29/22 18:59 06:59 18:59 Other: Voiding Method Incontinent Incontinent # Voids 2 4 - Exam GENERAL DESCRIPTION: An elderly female lying in bed in no distress RESPIRATORY SYSTEM: Unlabored breathing , decreased breath sounds at bases HEART: S1 S2 regular rate and rhythm , ABDOMEN: Soft , abdominal distention EXTREMITIES: left foot dorsum wound with mild blood stained drainage surrounding redness is improved - Labs CBC & Chem 7: 09/27/22 06:50 09/29/22 06:35 Labs: Abnormal Lab Results - Last 24 Hours (Table) 09/29/22 Range/Units 06:35 Sodium 128 L (135-145) mmol/L Anion Gap 8.50 L (10.00-18.00) mmol/L Calcium 8.1 L (8.7-10.3) mg/dL Assessment and Plan (1) Abscess of foot Current Visit: Yes Status: Acute Code(s): L02.619 - CUTANEOUS ABSCESS OF UNSPECIFIED FOOT SNOMED Code(s): 999783847 Plan: patient with positive blood culture finalized as coagulase negative staph likely skin contamination, blood culture has been repeated on 09/20/2022 and they have been negative so for 2patient with a nonhealing wound on the dorsum aspect of the left foot with a culture grew MSSA 3Patient seemed to have shown clinical improvement as for left foot cellulitis, patient to continue with cefazolin 2 g every 8 hours and local wound care with dry Aquacel silver dressing change daily Time with Patient: Less than 30
--- NOTE | 2022-09-29 16:31 | P.PN ---
Subjective Progress Note Date: 09/29/22 Pleasant 71 years old female with multiple medical problems as below. Presents because of c/o swelling to abdomen with short of breath hx liver cirrohsis lung sounds crackles bilat jaundice eye with wound to left foot. She comes because of abdominal distention and some little dyspnea, no significant chest pain, no coughing, she has some mild periumbilical abdominal pain for the last 10 days, nonspecific, nonradiating She denies any headache dizziness or weakness or numbness, no urinary complaints. No vomiting or diarrhea. Also patient is awake and alert to place and person but she is disoriented to time, she thought she came to the hospital 1 week ago but actually she came last night. Patient was updated Patient also she has a chronic ulcer in her left foot and there is still some discharge but there is no surrounding cellulitis and x-ray looks negative. Patient was recently discharged from this hospital 06/10-07/16 for alcoholic liver hepatitis and left foot infection and she underwent paracentesis 2. Also she had hypernatremia 106 went up to 125 open discharge Currently presents also with abdominal distention and shortness of breath. She denies a smoking or illicit drugs, first she told me she drinks wine only one cup twice a month but then when I ask her more she said last week she drink twice however she denies daily drinking of alcohol. At baseline she walks with a walker Vitals looks stable, afebrile Sodium 117-118 on admission. Lactic acid elevated 4.1, currently 2.3. Bilirubin elevated 4.9-6.2, last time she was discharged on bilirubin of 3.6 and on 08/14/2022 was 5.7 Mildly elevated liver enzymes, AST 4.9, ALT normal 24. Urine osmolality is 291 Serum alcohol: Less than 10 Foot x-ray showing no fracture dislocation In the emergency room she received Unasyn, ceftriaxone 1 and placed on normal saline 75 mL/h with nephrology been consulted 09/21/2022 Patient is currently in the MICU. Lying in the bed. Awake alert and oriented x3. Patient is status post paracentesis ultrasound-guided with 6.1 L fluid removal. Patient was hypotensive postoperatively and was started pressor support. Patient was also given albumin. Blood cultures grew MSSA. Antibiotics changed to cefazolin. Vancomycin has been discontinued. Fluid cytology is negative for SBP. WBC count 23. Laboratory data showed WBC 9.0 hemoglobin 11.8 and platelets 134 Sodium 122 potassium 3.1 chloride 94 bicarb is 19 BUN 7 creatinine 0.63 and calcium 7.4. Pulmonary and ID and nephrology is on board. 09/22/2022 Patient is currently resting in the bed. Awake alert and oriented x3. No complaints of chest pain or worsening shortness of breath. Patient is off pressor support. Latham catheter has been discontinued. Patient was started on midodrine. Laboratory data showed sodium level increased to 127 potassium 3.6 chloride 97 blood sugar 105 and magnesium level increase it to 2.1. Albumin 2.8. 09/23/2022 Patient in the MICU and awaiting to be transferred to telemetry unit. Patient is resting in bed. Awake alert and oriented. No complaints of chest pain or worsening shortness of breath. Nausea vomiting abdominal pain. Patient was tachycardic last night and was having PVCs. Patient was started on low-dose beta-yoana. Heart rate is better controlled Blood pressure is stable and is on midodrine. Headache or dizziness or lightheadedness. Patient is being current antibiotics and follow-up cefazolin for foot infection. 09/24/2022 Patient is currently resting in bed. Awake alert and oriented x3. No complaints of chest pain or shortness of breath. Blood pressure is stable. Continue on midodrine. Heart rate is in 70s. Patient does adequate have urine output. Continued on Lasix and Aldactone. Denies any complaints of headache or dizziness or lightheadedness. Patient denies any antibiotics -cefazolin Laboratory data showed WBC 9.6 hemoglobin 11.4 and platelets 135, sodium 125, potassium 3.3 chloride 94 bicarb is 25 BUN 3 and creatinine 0.64 and magnesium 1.2 which is being replaced. Albumin 2.6. Nephrology and ID is on board. 09/25/2022 Patient is currently resting in bed. Awake alert and oriented. No complaints of chest pain or shortness of breath. Denies any complaints of foot pain. No nausea vomiting abdominal pain or diarrhea. Repeat blood culture s have been negative. Patient is being current on cefazolin and wound care is being done. Laboratory data showed a sodium level 124 potassium 4.5 chloride 95 bicarb is 25 BUN 5 and creatinine 0.63 and calcium 7.5. Nephrology is on board. 09/26/2022 Patient is resting in the bed. Awake alert and oriented x3. Sodium level improved to 128 today. Denies any complaints of abdominal pain. No nausea vomiting or diarrhea. Blood pressure did improve. Patient is also on antibiotics for left foot infection with cefazolin. Laboratory data showed sodium 128 potassium 4.6 chloride 95 bicarb is 22.3 BUN 6.7 creatinine 0.8 and magnesium 1.5 which is being replaced. Nephrology and ID is on board. Patient may require another paracentesis once blood pressure is stable. 09/27/2022 Patient is currently on the medical floor. Awake alert and oriented x3. No complaints of chest pain or abdominal pain. No nausea vomiting or diarrhea. Abdomen is distended again and will require paracentesis and repeat paracentesis was ordered. Sodium level otherwise down to 125 today. Blood pressures low today 95/64. Nephrology is on board. ID is also following. Patient will require paracentesis again. WBC 9.8 hemoglobin 10.5 and platelets 120 sodium 125 potassium 4.5 chloride 96 bicarb is 18.8 BUN 6.9 and creatinine 0.8 and calcium 8.0. 09/28/2022 Patient is scheduled for paracentesis again today. Patient will be given albumin postprocedure no nausea vomiting or diarrhea. Patient is being continue d on cefazolin for foot infection. ID and nephrology is on board. No complaints of chest pain or shortness of breath. Patient has been afebrile. Anticipate discharge once blood pressure is stable postprocedure and follow-up sodium level. 09/29/2022 Patient is status post paracentesis with 5.9 L off yesterday. Sodium today 128. Continues on fluid restriction, midodrine. ID following and patient remains on cefazolin and local wound care with aquacel. BP remains on the lower side. Patient to increase activity level and possible DC home tomorrow. Review of Systems Constitutional: Denied any fatigue denied any fever. Cardio vascular: denied any chest pain, palpitations Gastrointestinal: denied any nausea, vomiting, diarrhea. Has some lower abdominal pain. Pulmonary: Denied any shortness of breath cough Neurologic denied any new focal deficits All inpatient medications were reviewed and appropriate changes in these medications as dictated in the interval history and assessment and plan. PHYSICAL EXAMINATION: GENERAL: The patient is alert and oriented x3, not in any acute distress. Well developed, well nourished. HEENT: Pupils are round and equally reacting to light. EOMI. No scleral icterus. No conjunctival pallor. Normocephalic, atraumatic. No pharyngeal erythema. No thyromegaly. CARDIOVASCULAR: S1 and S2 present. No murmurs, rubs, or gallops. PULMONARY: Chest is clear to auscultation, no wheezing or crackles. ABDOMEN: Soft, nontender, nondistended, normoactive bowel sounds. No palpable organomegaly. MUSCULOSKELETAL: No joint swelling or deformity. EXTREMITIES: No cyanosis, clubbing, or pedal edema. NEUROLOGICAL: Gross neurological examination did not reveal any focal deficits. Kerlex to left foot. SKIN: No rashes. Assessment and Plan Assessment De-Compensated alcoholic liver disease with possible cirrhosis with ascites and jaundice. s/ p paracentesis Post paracentesis hypotension. Status post albumin dose and was requiring pressor support. Currently off pressors. Started on midodrine. Hyponatremia, Hypervolemia and also related to alcohol use disorder Elevated lactic acid Left foot cellulitis COPD, no acute exacerbation History of GERD Hypertension Hyperlipidemia History of rheumatoid arthritis Full Code Plan Patient has been started on oral lasix today Repeat sodium tomorrow Increase activity level Continue IV antibiotics and local wound care Possible home with HC tomorrow pending nephro and ID recommendations The impression and plan of care has been dictated by Marcela Red, Nurse Practitioner as directed. Dr. Amada MD I have performed a history and physical examination and medical decision making of this patient, discussed the same with the dictator, and agree with the dictators assessment and plan as written, documented as a scribe. Based on total visit time, I have performed more than 50% of this visit. Objective - Vital Signs Vital signs: Vital Signs Temp 98.3 F 09/29/22 14:00 Pulse 73 09/29/22 14:00 Resp 16 09/29/22 14:00 BP 89/57 09/29/22 14:00 Pulse Ox 100 09/29/22 14:00 FiO2 Intake & Output 09/28/22 09/29/22 09/29/22 18:59 06:59 18:59 Other: Voiding Method Incontinent Incontinent # Voids 2 4 - Labs CBC & Chem 7: 09/27/22 06:50 09/29/22 06:35 Labs: Abnormal Lab Results - Last 24 Hours (Table) 09/29/22 Range/Units 06:35 Sodium 128 L (135-145) mmol/L Anion Gap 8.50 L (10.00-18.00) mmol/L Calcium 8.1 L (8.7-10.3) mg/dL Assessment and Plan Time with Patient: Less than 30
[2022-09-29] MEDS: ACETAMINOPHEN TAB 325 MG TAB PO PRN (18:05)
[2022-09-30] MEDS: ACETAMINOPHEN TAB 325 MG TAB PO PRN ×2 (00:50→16:45)
[2022-09-30] MEDS: ONDANSETRON 4 MG/2 ML VIAL IVP PRN (02:21)
[2022-09-30 08:01] LABS: African American GFR (CKD) 67 (>60 ml/min/1.73 sqM); Anion Gap 3 mmol/L; Blood Urea Nitrogen 14 mg/dL (7-17); Calcium 7.6 mg/dL (8.4-10.2); Carbon Dioxide 23 mmol/L (22-30); Chloride 98 mmol/L (98-107); Glucose 103 mg/dL (74-99); Non-African American GFR(CKD) 58 (>60 ml/min/1.73 sqM); Potassium 4.7 mmol/L (3.5-5.1); Sodium 124 mmol/L (137-145)
[2022-09-30] MEDS: MULTIVITAMINS, THERA 1 EACH TAB PO SCH (09:22)
[2022-09-30] MEDS: PANTOPRAZOLE 40 MG TABLET PO SCH (09:22)
[2022-09-30] MEDS: SPIRONOLACTONE 25 MG TAB PO SCH (09:23)
[2022-09-30] MEDS: FOLIC ACID 1 MG TAB PO SCH (09:23)
[2022-09-30] MEDS: MIDODRINE 5 MG TAB PO SCH ×3 (09:23→16:43)
[2022-09-30] MEDS: CYANOCOBALAMIN 500 MCG TAB PO SCH (09:23)
[2022-09-30] MEDS ORDERED: TOLVAPTAN 15 MG 1/2 TABLET PO ONE (09:25)
[2022-09-30] MEDS: METOPROLOL TARTRATE 12.5 MG TAB PO SCH ×2 (10:32→20:08)
[2022-09-30] MEDS: FUROSEMIDE 20 MG TAB PO SCH (10:32)
--- NOTE | 2022-09-30 12:15 | P.PN ---
Subjective Patient is seen in follow-up for hyponatremia. Sodium decreased to 124 today Oral intake is fair. Nonoliguric. Has external catheter. Blood pressure on the lower side. Underwent paracentesis of 5.9 liters drained on 09/28/2022 No significant complaints. Objective - Vital Signs Vital signs: Vital Signs Temp 98.2 F 09/30/22 07:55 Pulse 76 09/30/22 11:46 Resp 17 09/30/22 07:55 BP 94/64 09/30/22 11:46 Pulse Ox 98 09/30/22 07:55 FiO2 Intake & Output 09/29/22 09/30/22 09/30/22 18:59 06:59 18:59 Output Total 200 Balance -200 Output: Urine 200 Other: Voiding Method Incontinent # Voids 1 3 - Exam Awake, comfortable, no acute distress Examination of the heart S1 and S2 Examination lungs decreased breath sounds at the bases Abdomen is soft nontender Examination lower extremities shows trace edema bilaterally [employer] exam grossly intact - Labs CBC & Chem 7: 09/27/22 06:50 09/30/22 06:48 Labs: Abnormal Lab Results - Last 24 Hours (Table) 09/30/22 Range/Units 06:48 Sodium 124 L (137-145) mmol/L Glucose 103 H (74-99) mg/dL Calcium 7.6 L (8.4-10.2) mg/dL Assessment and Plan Assessment: 1. Hyponatremia. Hypervolemic with ascites. Sodium level 124. Urine sodium less than 20 and urine osmolality 366 dated 09/19/2022. Cortisol level 9.2. TSH 6 with normal free T4 dated 09/18/2022. 2. Liver cirrhosis. 3. Ascites status post paracentesis with 6.1 L drained 09/21/2022; 5.9 L drained 09/28/2022. 4. Hypokalemia from poor intake and GI losses. Replaced. Better. 5. Hypomagnesemia from poor intake and GI losses. Improved. Plan: Samsca 15 mg by mouth 1 Repeat sodium later on today Maintain fluid restriction Continue with oral Lasix
--- NOTE | 2022-09-30 12:48 | P.PN ---
Subjective Progress Note Date: 09/30/22 Principal diagnosis: left foot wound and a positive blood culture Patient is a 71 year old female with multiple comorbidity patient did have alcohol liver disease/cirrhosis with multiple admission to the hospital for ascites and requiring paracentesis last admission was back in June with the patient did require paracentesis 2 during that admission patient also develop swelling to the left foot area patient did have a CT of the foot that was suggestive mostly hematoma no evidence of any abscess , patient presented to hospital with abdominal distention worsening ascites and need for paracentesis she did have a positive blood culture and a nonhealing wound to the left foot with a positive culture , the patient did have a repeat paracentesis done on 09/28/2022 with removal of 5.9 L straw-colored fluid on today's evaluation that is 09/30/2022, the patient remains to be afebrile, the patient is breathing comfortably on room air. The patient denies chest pain or shortness of breath , the patient abdominal distention and pain has decreased in intensity and denies any nausea or vomiting, patient pain to the left foot wound area has decreased in intensity Objective - Vital Signs Vital signs: Vital Signs Temp 98.2 F 09/30/22 07:55 Pulse 76 09/30/22 11:46 Resp 17 09/30/22 07:55 BP 94/64 09/30/22 11:46 Pulse Ox 98 09/30/22 07:55 FiO2 Intake & Output 09/29/22 09/30/22 09/30/22 18:59 06:59 18:59 Output Total 200 Balance -200 Output: Urine 200 Other: Voiding Method Incontinent # Voids 1 3 - Exam GENERAL DESCRIPTION: An elderly female lying in bed in no distress RESPIRATORY SYSTEM: Unlabored breathing , decreased breath sounds at bases HEART: S1 S2 regular rate and rhythm , ABDOMEN: Soft , abdominal distention EXTREMITIES: left foot dorsum wound is currently dressed no drainage on dressing - Labs CBC & Chem 7: 09/27/22 06:50 09/30/22 06:48 Labs: Abnormal Lab Results - Last 24 Hours (Table) 09/30/22 Range/Units 06:48 Sodium 124 L (137-145) mmol/L Glucose 103 H (74-99) mg/dL Calcium 7.6 L (8.4-10.2) mg/dL Assessment and Plan (1) Abscess of foot Current Visit: Yes Status: Acute Code(s): L02.619 - CUTANEOUS ABSCESS OF UNSPECIFIED FOOT SNOMED Code(s): 285369743 Plan: patient with positive blood culture finalized as coagulase negative staph likely skin contamination, blood culture has been repeated on 09/20/2022 and they have been negative so for 2patient with a nonhealing wound on the dorsum aspect of the left foot with a culture grew MSSA 3Patient continued to show slow clinical improvement as for as left foot cellulitis is concerned 4- patient to continue with cefazolin 2 g every 8 hours and local wound care with dry Aquacel silver dressing change daily Time with Patient: Less than 30
--- NOTE | 2022-09-30 13:43 | P.PN ---
Subjective Progress Note Date: 09/30/22 Pleasant 71 years old female with multiple medical problems as below. Presents because of c/o swelling to abdomen with short of breath hx liver cirrohsis lung sounds crackles bilat jaundice eye with wound to left foot. She comes because of abdominal distention and some little dyspnea, no significant chest pain, no coughing, she has some mild periumbilical abdominal pain for the last 10 days, nonspecific, nonradiating She denies any headache dizziness or weakness or numbness, no urinary complaints. No vomiting or diarrhea. Also patient is awake and alert to place and person but she is disoriented to time, she thought she came to the hospital 1 week ago but actually she came last night. Patient was updated Patient also she has a chronic ulcer in her left foot and there is still some discharge but there is no surrounding cellulitis and x-ray looks negative. Patient was recently discharged from this hospital 06/10-07/16 for alcoholic liver hepatitis and left foot infection and she underwent paracentesis 2. Also she had hypernatremia 106 went up to 125 open discharge Currently presents also with abdominal distention and shortness of breath. She denies a smoking or illicit drugs, first she told me she drinks wine only one cup twice a month but then when I ask her more she said last week she drink twice however she denies daily drinking of alcohol. At baseline she walks with a walker Vitals looks stable, afebrile Sodium 117-118 on admission. Lactic acid elevated 4.1, currently 2.3. Bilirubin elevated 4.9-6.2, last time she was discharged on bilirubin of 3.6 and on 08/14/2022 was 5.7 Mildly elevated liver enzymes, AST 4.9, ALT normal 24. Urine osmolality is 291 Serum alcohol: Less than 10 Foot x-ray showing no fracture dislocation In the emergency room she received Unasyn, ceftriaxone 1 and placed on normal saline 75 mL/h with nephrology been consulted 09/21/2022 Patient is currently in the MICU. Lying in the bed. Awake alert and oriented x3. Patient is status post paracentesis ultrasound-guided with 6.1 L fluid removal. Patient was hypotensive postoperatively and was started pressor support. Patient was also given albumin. Blood cultures grew MSSA. Antibiotics changed to cefazolin. Vancomycin has been discontinued. Fluid cytology is negative for SBP. WBC count 23. Laboratory data showed WBC 9.0 hemoglobin 11.8 and platelets 134 Sodium 122 potassium 3.1 chloride 94 bicarb is 19 BUN 7 creatinine 0.63 and calcium 7.4. Pulmonary and ID and nephrology is on board. 09/22/2022 Patient is currently resting in the bed. Awake alert and oriented x3. No complaints of chest pain or worsening shortness of breath. Patient is off pressor support. Latham catheter has been discontinued. Patient was started on midodrine. Laboratory data showed sodium level increased to 127 potassium 3.6 chloride 97 blood sugar 105 and magnesium level increase it to 2.1. Albumin 2.8. 09/23/2022 Patient in the MICU and awaiting to be transferred to telemetry unit. Patient is resting in bed. Awake alert and oriented. No complaints of chest pain or worsening shortness of breath. Nausea vomiting abdominal pain. Patient was tachycardic last night and was having PVCs. Patient was started on low-dose beta-yoana. Heart rate is better controlled Blood pressure is stable and is on midodrine. Headache or dizziness or lightheadedness. Patient is being current antibiotics and follow-up cefazolin for foot infection. 09/24/2022 Patient is currently resting in bed. Awake alert and oriented x3. No complaints of chest pain or shortness of breath. Blood pressure is stable. Continue on midodrine. Heart rate is in 70s. Patient does adequate have urine output. Continued on Lasix and Aldactone. Denies any complaints of headache or dizziness or lightheadedness. Patient denies any antibiotics -cefazolin Laboratory data showed WBC 9.6 hemoglobin 11.4 and platelets 135, sodium 125, potassium 3.3 chloride 94 bicarb is 25 BUN 3 and creatinine 0.64 and magnesium 1.2 which is being replaced. Albumin 2.6. Nephrology and ID is on board. 09/25/2022 Patient is currently resting in bed. Awake alert and oriented. No complaints of chest pain or shortness of breath. Denies any complaints of foot pain. No nausea vomiting abdominal pain or diarrhea. Repeat blood culture s have been negative. Patient is being current on cefazolin and wound care is being done. Laboratory data showed a sodium level 124 potassium 4.5 chloride 95 bicarb is 25 BUN 5 and creatinine 0.63 and calcium 7.5. Nephrology is on board. 09/26/2022 Patient is resting in the bed. Awake alert and oriented x3. Sodium level improved to 128 today. Denies any complaints of abdominal pain. No nausea vomiting or diarrhea. Blood pressure did improve. Patient is also on antibiotics for left foot infection with cefazolin. Laboratory data showed sodium 128 potassium 4.6 chloride 95 bicarb is 22.3 BUN 6.7 creatinine 0.8 and magnesium 1.5 which is being replaced. Nephrology and ID is on board. Patient may require another paracentesis once blood pressure is stable. 09/27/2022 Patient is currently on the medical floor. Awake alert and oriented x3. No complaints of chest pain or abdominal pain. No nausea vomiting or diarrhea. Abdomen is distended again and will require paracentesis and repeat paracentesis was ordered. Sodium level otherwise down to 125 today. Blood pressures low today 95/64. Nephrology is on board. ID is also following. Patient will require paracentesis again. WBC 9.8 hemoglobin 10.5 and platelets 120 sodium 125 potassium 4.5 chloride 96 bicarb is 18.8 BUN 6.9 and creatinine 0.8 and calcium 8.0. 09/28/2022 Patient is scheduled for paracentesis again today. Patient will be given albumin postprocedure no nausea vomiting or diarrhea. Patient is being continue d on cefazolin for foot infection. ID and nephrology is on board. No complaints of chest pain or shortness of breath. Patient has been afebrile. Anticipate discharge once blood pressure is stable postprocedure and follow-up sodium level. 09/29/2022 Patient is status post paracentesis with 5.9 L off yesterday. Sodium today 128. Continues on fluid restriction, midodrine. ID following and patient remains on cefazolin and local wound care with aquacel. BP remains on the lower side. Patient to increase activity level and possible DC home tomorrow. 09/30/2022 Patient is evaluated today resting in bed. Sodium level today 124, received a dose of samsca. Followed by infectious disease for left foot wound/cellulitis and continues on IV cefazolin and local wound care with aquacel. Blood pressure 94/64 today, on room air. Afebrile. Review of Systems Constitutional: Denied any fatigue denied any fever. Cardio vascular: denied any chest pain, palpitations Gastrointestinal: denied any nausea, vomiting, diarrhea. Has some lower abdominal pain. Pulmonary: Denied any shortness of breath cough Neurologic denied any new focal deficits All inpatient medications were reviewed and appropriate changes in these medications as dictated in the interval history and assessment and plan. PHYSICAL EXAMINATION: GENERAL: The patient is alert and oriented x3, not in any acute distress. Well developed, well nourished. HEENT: Pupils are round and equally reacting to light. EOMI. No scleral icterus. No conjunctival pallor. Normocephalic, atraumatic. No pharyngeal erythema. No thyromegaly. CARDIOVASCULAR: S1 and S2 present. No murmurs, rubs, or gallops. PULMONARY: Chest is clear to auscultation, no wheezing or crackles. ABDOMEN: Soft, nontender, nondistended, normoactive bowel sounds. No palpable organomegaly. MUSCULOSKELETAL: No joint swelling or deformity. EXTREMITIES: No cyanosis, clubbing, or pedal edema. NEUROLOGICAL: Gross neurological examination did not reveal any focal deficits. Kerlex to left foot. SKIN: No rashes. Assessment and Plan Assessment De-Compensated alcoholic liver disease with possible cirrhosis with ascites and jaundice. s/ p paracentesis Post paracentesis hypotension. Status post albumin dose and was requiring pressor support. Currently off pressors. Started on midodrine. Hyponatremia, Hypervolemia and also related to alcohol use disorder Elevated lactic acid Left foot cellulitis with nonhealing wound COPD, no acute exacerbation History of GERD Hypertension Hyperlipidemia History of rheumatoid arthritis Full Code Plan Patient continues on fluid restriction, received a dose of samsca today Follow up sodium level Continue IV antibiotics and local wound residential with homecare when medically stable The impression and plan of care has been dictated by Marcela Red, Nurse Practitioner as directed. Dr. Amada MD I have performed a history and physical examination and medical decision making of this patient, discussed the same with the dictator, and agree with the dictators assessment and plan as written, documented as a scribe. Based on total visit time, I have performed more than 50% of this visit. Objective - Vital Signs Vital signs: Vital Signs Temp 98.2 F 09/30/22 07:55 Pulse 73 09/30/22 07:55 Resp 17 09/30/22 07:55 BP 87/44 09/30/22 07:55 Pulse Ox 98 01/01/23 07:55 FiO2 Intake & Output 09/29/22 09/30/22 09/30/22 18:59 06:59 18:59 Output Total 200 Balance -200 Output: Urine 200 Other: # Voids 1 3 - Labs CBC & Chem 7: 09/27/22 06:50 09/30/22 06:48 Labs: Abnormal Lab Results - Last 24 Hours (Table) 09/29/22 09/30/22 Range/Units 06:35 06:48 Sodium 128 L 124 L (135-145) mmol/L Anion Gap 8.50 L (10.00-18.00) mmol/L Glucose 103 H (74-99) mg/dL Calcium 8.1 L 7.6 L (8.7-10.3) mg/dL Assessment and Plan Time with Patient: Less than 30
[2022-10-01] MEDS: MIDODRINE 5 MG TAB PO SCH ×3 (06:45→16:30)
[2022-10-01] MEDS: PANTOPRAZOLE 40 MG TABLET PO SCH ×2 (06:45→16:29)
[2022-10-01] MEDS: METOPROLOL TARTRATE 12.5 MG TAB PO SCH ×2 (08:26→20:49)
[2022-10-01] MEDS: SPIRONOLACTONE 25 MG TAB PO SCH (09:02)
[2022-10-01] MEDS: FUROSEMIDE 20 MG TAB PO SCH (09:02)
[2022-10-01] MEDS: MULTIVITAMINS, THERA 1 EACH TAB PO SCH (09:05)
[2022-10-01] MEDS: FOLIC ACID 1 MG TAB PO SCH (09:05)
[2022-10-01] MEDS: CYANOCOBALAMIN 500 MCG TAB PO SCH (09:06)
--- NOTE | 2022-10-01 11:25 | P.PN ---
Subjective Patient is seen in follow-up for hyponatremia. Sodium decreased to 123 yesterday and patient received a dose of Samsca. Sodium is up to 125 today. Oral intake is fair. Nonoliguric. Has external catheter. Blood pressure on the lower side. Underwent paracentesis of 5.9 liters drained on 09/28/2022 No significant complaints. 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 Hyponatremia. Hypervolemic with ascites. Sodium level 125. Status post Samsca. Urine sodium less than 20 and urine osmolality 366 dated 09/19/2022. Cortisol level 9.2. TSH 6 with normal free T4 dated 09/18/2022. 2. Liver cirrhosis. 3. Ascites status post paracentesis with 6.1 L drained 09/21/2022; 5.9 L drained 09/28/2022. 4. Hypokalemia from poor intake and GI losses. Replaced. Better. 5. Hypomagnesemia from poor intake and GI losses. Improved. Plan: Samsca 15 mg by mouth 1 Repeat sodium later on today Maintain fluid restriction Continue with oral Lasix
[2022-10-01] MEDS ORDERED: TOLVAPTAN 15 MG 1/2 TABLET PO ONE (11:30)
--- NOTE | 2022-10-01 14:34 | P.PN ---
Subjective Progress Note Date: 10/01/22 Principal diagnosis: left foot wound and a positive blood culture Patient is a 71 year old female with multiple comorbidity patient did have alcohol liver disease/cirrhosis with multiple admission to the hospital for ascites and requiring paracentesis last admission was back in June with the patient did require paracentesis 2 during that admission patient also develop swelling to the left foot area patient did have a CT of the foot that was suggestive mostly hematoma no evidence of any abscess , patient presented to hospital with abdominal distention worsening ascites and need for paracentesis she did have a positive blood culture and a nonhealing wound to the left foot with a positive culture , the patient did have a repeat paracentesis done on 09/28/2022 with removal of 5.9 L straw-colored fluid on today's evaluation that is 10/01/2022, the patient continues to be afebrile, the patient is breathing comfortably on room air. The patient denies chest pain or shortness of breath , the patient abdominal discomfort has decreased in intensity, the patient denies any nausea or vomiting, patient pain to the left foot wound area has decreased in intensity and less drainage Objective - Vital Signs Vital signs: Vital Signs Temp 97.4 F L 10/01/22 08:00 Pulse 76 10/01/22 08:00 Resp 16 10/01/22 08:00 BP 88/54 10/01/22 08:00 Pulse Ox 100 10/01/22 08:00 FiO2 Intake & Output 09/30/22 10/01/22 10/01/22 18:59 06:59 18:59 Other: Voiding Method Incontinent # Voids 2 3 # Bowel Movements 1 - Exam GENERAL DESCRIPTION: An elderly female lying in bed in no distress RESPIRATORY SYSTEM: Unlabored breathing , decreased breath sounds at bases HEART: S1 S2 regular rate and rhythm , ABDOMEN: Soft , abdominal distention EXTREMITIES: left foot dorsum wound is currently dressed no drainage on dressing - Labs CBC & Chem 7: 09/27/22 06:50 10/01/22 09:14 Labs: Abnormal Lab Results - Last 24 Hours (Table) 09/30/22 10/01/22 Range/Units 14:51 09:14 Sodium 123 L 125 L (137-145) mmol/L Assessment and Plan (1) Abscess of foot Current Visit: Yes Status: Acute Code(s): L02.619 - CUTANEOUS ABSCESS OF UNSPECIFIED FOOT SNOMED Code(s): 166237540 Plan: patient with positive blood culture finalized as coagulase negative staph likely skin contamination, blood culture has been repeated on 09/20/2022 and they have been negative so for 2patient with a nonhealing wound on the dorsum aspect of the left foot with a culture grew MSSA 3Patient continued to show slow clinical improvement as for as left foot cellulitis is concerned 4- patient has received adequate IV cefazolin 2 g every 8 hours, we will switch her over to oral Keflex and monitor clinical course closely Time with Patient: Less than 30
[2022-10-01] MEDS: ACETAMINOPHEN TAB 325 MG TAB PO PRN ×2 (16:29→22:09)
[2022-10-01] MEDS: CEPHALEXIN 500 MG CAP PO SCH ×2 (16:29→20:50)
--- NOTE | 2022-10-01 17:15 | PN ---
PROGRESS NOTE DATE OF SERVICE: 10/01/2022 SUBJECTIVE: This is a 71-year-old woman, who was admitted with left foot cellulitis, on IV antibiotics. No chest pain. No palpitation. No fever. OBJECTIVE: VITAL SIGNS: Pulse is 76, blood pressure 88/55, respirations 16. HEENT: Conjunctivae are normal. NECK: No jugular venous distention. CARDIOVASCULAR: S1 and S2 muffled. RESPIRATORY: Breath sounds diminished at the bases. ABDOMEN: Soft. LEGS: Left foot cellulitis present. ASSESSMENT: 1. Alcoholic liver disease with cirrhosis liver and status post paracentesis. 2. Left foot cellulitis. 3. Post-paracentesis hypotension. 4. Hyponatremia. 5. Chronic obstructive pulmonary disease. 6. Multiple medical issues. RECOMMENDATIONS: Recommend to continue current medications and symptomatic treatment. Avoid blood pressure medication at this time. Otherwise, closely follow. Check 8 a.m. cortisol. Guarded prognosis. Further recommendations to follow. MMPRATIKL / IJN: [id number] /
[2022-10-02] MEDS: ACETAMINOPHEN TAB 325 MG TAB PO PRN ×3 (05:42→21:50)
[2022-10-02] MEDS: MIDODRINE 5 MG TAB PO SCH ×3 (05:42→17:21)
[2022-10-02] MEDS: METOPROLOL TARTRATE 12.5 MG TAB PO SCH ×2 (07:15→21:47)
[2022-10-02] MEDS: FUROSEMIDE 20 MG TAB PO SCH (07:15)
[2022-10-02] MEDS: CEPHALEXIN 500 MG CAP PO SCH ×3 (07:15→21:50)
[2022-10-02] MEDS: CYANOCOBALAMIN 500 MCG TAB PO SCH (07:15)
[2022-10-02] MEDS: PANTOPRAZOLE 40 MG TABLET PO SCH ×2 (07:15→17:21)
[2022-10-02] MEDS: SPIRONOLACTONE 25 MG TAB PO SCH (07:16)
[2022-10-02] MEDS: MULTIVITAMINS, THERA 1 EACH TAB PO SCH (07:16)
[2022-10-02] MEDS: FOLIC ACID 1 MG TAB PO SCH (07:16)
[2022-10-02 08:32] LABS: Basophils # (A) 0.06 X 10*3/uL (0.00-0.10); Basophils % (A) 0.7 %; Eosinophils # (A) 0.17 X 10*3/uL (0.04-0.35); Eosinophils % (A) 1.9 %; Immature Grans, Automated 0.5 %; Lymphocytes # (A) 2.74 X 10*3/uL (0.90-5.00); Lymphocytes % (A) 31.1 %; MCHC 35.7 g/dL (32.0-37.0); MCV 97.9 fL (80.0-97.0); Mean Platelet Volume 9.7 fL (9.5-12.2); Monocytes # (A) 1.22 X 10*3/uL (0.20-1.00); Monocytes % (A) 13.8 %; NRBC Per 100 WBC 0 /100 WBCS (0.0-0.0); Neutrophils # (A) 4.59 X 10*3/uL (1.80-7.70); Platelet Count 151 X 10*3/uL (140-440); RBC 2.86 X 10*6/uL (4.10-5.20); RDW 17.7 % (11.5-14.5); WBC 8.82 X 10*3/uL (4.50-10.00)
[2022-10-02 08:49] LABS: African American GFR (CKD) 39.6 (60.0-200.0); Albumin 2.6 g/dL (3.8-4.9); Albumin/Globulin Ratio 1.3 (1.60-3.17); Anion Gap 8.7 mmol/L (10.00-18.00); BUN/Creat Ratio 12.4 Ratio (12.00-20.00); Blood Urea Nitrogen 18.6 mg/dL (9.0-27.0); Calcium 8.5 mg/dL (8.7-10.3); Carbon Dioxide 21.3 mmol/L (20.0-27.5); Non-African American GFR(CKD) 34.2 (60.0-200.0); Potassium 5.3 mmol/L (3.5-5.5); Total Bilirubin 2.3 mg/dL (0.30-1.20); Total Protein 4.6 g/dL (6.2-8.2)
[2022-10-02] MEDS ORDERED: SODIUM CHLORIDE TAB 1 GM TAB PO STA (10:29)
--- NOTE | 2022-10-02 10:31 | US ---
EXAMINATION TYPE: US arterial LE multi level DATE OF EXAM: 09/26/2022 2:00 PM CLINICAL HISTORY: Left lateral foot ulcer. History of: Smoker: Yes Hypertension: Yes Diabetic: No Hyperlipidemia: Yes TIA/CVA: No Previous Vascular Surgery: No CAD: No AK: No Vascular Ulcers: Left ulcer lateral foot Right Brachial Pressure: 116 Left Brachial Pressure: 106 Ankle-Brachial Indices: Right: 1.2 Left: 1.1 Toe Brachial Indices: Right: No waveform Left: 0.4 IMPRESSION: Diminished left sided TBI consistent with at least mild peripheral arterial disease in t he left foot. Nondiagnostic evaluation left toe.
--- NOTE | 2022-10-02 10:33 | P.PN ---
Subjective Patient is seen in follow-up for hyponatremia. Serum sodium staying at about 125. Patient has received Samsca. Oral intake is fair. Nonoliguric. Has external catheter. Blood pressure on the lower side. Underwent paracentesis of 5.9 liters drained on 09/28/2022 No significant complaints. 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 HELPER exam grossly intact - Labs CBC & Chem 7: 10/02/22 04:26 10/02/22 04:26 Labs: Abnormal Lab Results - Last 24 Hours (Table) 10/02/22 10/02/22 Range/Units 04:26 04:26 RBC 2.86 L (4.10-5.20) X 10*6/uL Hgb 10.0 L (12.0-15.0) g/dL Hct 28.0 L (37.2-46.3) % MCV 97.9 H (80.0-97.0) fL MCH 35.0 H (27.0-32.0) pg RDW 17.7 H (11.5-14.5) % Monocytes # 1.22 H (0.20-1.00) X 10*3/uL Sodium 125 L (135-145) mmol/L Chloride 95 L (96-109) mmol/L Anion Gap 8.70 L (10.00-18.00) mmol/L Est GFR (CKD-EPI)AfAm 39.6 L (60.0-200.0) Est GFR (CKD-EPI)NonAf 34.2 L (60.0-200.0) Calcium 8.5 L (8.7-10.3) mg/dL Total Bilirubin 2.30 H (0.30-1.20) mg/dL ALT 6 L (8-44) U/L Total Protein 4.6 L (6.2-8.2) g/dL Albumin 2.6 L (3.8-4.9) g/dL Albumin/Globulin Ratio 1.30 L (1.60-3.17) g/dL Assessment and Plan Assessment: 1. Hyponatremia. Hypervolemic with ascites. Sodium level 125. Status post Samsca. Urine sodium less than 20 and urine osmolality 366 dated 09/19/2022. Cortisol level 9.2. TSH 6 with normal free T4 dated 09/18/2022. 2. Liver cirrhosis. 3. Ascites status post paracentesis with 6.1 L drained 09/21/2022; 5.9 L drained 09/28/2022. 4. Hypokalemia from poor intake and GI losses. Replaced. Better. 5. Hypomagnesemia from poor intake and GI losses. Improved. 6. Hypotension with cortisol level at 11.2. Maintained on midodrine. Repeat blood cultures from 09/20/2022 were negative. 7. Coagulase negative staph bacteremia noted on blood cultures from 09/18/2022 Plan: Sodium chloride tab 1 Repeat Samsca Repeat sodium tomorrow Repeat blood cultures
[2022-10-02] MEDS ORDERED: TOLVAPTAN 15 MG 1/2 TABLET PO ONE (11:00)
--- NOTE | 2022-10-02 12:24 | P.PN ---
Subjective Progress Note Date: 10/02/22 Pleasant 71 years old female with multiple medical problems as below. Presents because of c/o swelling to abdomen with short of breath hx liver cirrohsis lung sounds crackles bilat jaundice eye with wound to left foot. She comes because of abdominal distention and some little dyspnea, no significant chest pain, no coughing, she has some mild periumbilical abdominal pain for the last 10 days, nonspecific, nonradiating She denies any headache dizziness or weakness or numbness, no urinary complaints. No vomiting or diarrhea. Also patient is awake and alert to place and person but she is disoriented to time, she thought she came to the hospital 1 week ago but actually she came last night. Patient was updated Patient also she has a chronic ulcer in her left foot and there is still some discharge but there is no surrounding cellulitis and x-ray looks negative. Patient was recently discharged from this hospital 06/10-07/16 for alcoholic liver hepatitis and left foot infection and she underwent paracentesis 2. Also she had hypernatremia 106 went up to 125 open discharge Currently presents also with abdominal distention and shortness of breath. She denies a smoking or illicit drugs, first she told me she drinks wine only one cup twice a month but then when I ask her more she said last week she drink twice however she denies daily drinking of alcohol. At baseline she walks with a walker Vitals looks stable, afebrile Sodium 117-118 on admission. Lactic acid elevated 4.1, currently 2.3. Bilirubin elevated 4.9-6.2, last time she was discharged on bilirubin of 3.6 and on 08/14/2022 was 5.7 Mildly elevated liver enzymes, AST 4.9, ALT normal 24. Urine osmolality is 291 Serum alcohol: Less than 10 Foot x-ray showing no fracture dislocation In the emergency room she received Unasyn, ceftriaxone 1 and placed on normal saline 75 mL/h with nephrology been consulted 09/21/2022 Patient is currently in the MICU. Lying in the bed. Awake alert and oriented x3. Patient is status post paracentesis ultrasound-guided with 6.1 L fluid removal. Patient was hypotensive postoperatively and was started pressor support. Patient was also given albumin. Blood cultures grew MSSA. Antibiotics changed to cefazolin. Vancomycin has been discontinued. Fluid cytology is negative for SBP. WBC count 23. Laboratory data showed WBC 9.0 hemoglobin 11.8 and platelets 134 Sodium 122 potassium 3.1 chloride 94 bicarb is 19 BUN 7 creatinine 0.63 and calcium 7.4. Pulmonary and ID and nephrology is on board. 09/22/2022 Patient is currently resting in the bed. Awake alert and oriented x3. No comp laints of chest pain or worsening shortness of breath. Patient is off pressor support. Latham catheter has been discontinued. Patient was started on midodrine. Laboratory data showed sodium level increased to 127 potassium 3.6 chloride 97 blood sugar 105 and magnesium level increase it to 2.1. Albumin 2.8. 09/23/2022 Patient in the MICU and awaiting to be transferred to telemetry unit. Patient is resting in bed. Awake alert and oriented. No complaints of chest pain or worsening shortness of breath. Nausea vomiting abdominal pain. Patient was tachycardic last night and was having PVCs. Patient was started on low-dose beta-yoana. Heart rate is better controlled Blood pressure is stable and is on midodrine. Headache or dizziness or lightheadedness. Patient is being current antibiotics and follow-up cefazolin for foot infection. 09/24/2022 Patient is currently resting in bed. Awake alert and oriented x3. No complaints of chest pain or shortness of breath. Blood pressure is stable. Continue on midodrine. Heart rate is in 70s. Patient does adequate have urine output. Continued on Lasix and Aldactone. Denies any complaints of headache or dizziness or lightheadedness. Patient denies any antibiotics -cefazolin Laboratory data showed WBC 9.6 hemoglobin 11.4 and platelets 135, sodium 125, potassium 3.3 chloride 94 bicarb is 25 BUN 3 and creatinine 0.64 and magnesium 1.2 which is being replaced. Albumin 2.6. Nephrology and ID is on board. 09/25/2022 Patient is currently resting in bed. Awake alert and oriented. No complaints of chest pain or shortness of breath. Denies any complaints of foot pain. No nausea vomiting abdominal pain or diarrhea. Repeat blood cult ures have been negative. Patient is being current on cefazolin and wound care is being done. Laboratory data showed a sodium level 124 potassium 4.5 chloride 95 bicarb is 25 BUN 5 and creatinine 0.63 and calcium 7.5. Nephrology is on board. 09/26/2022 Patient is resting in the bed. Awake alert and oriented x3. Sodium level improved to 128 today. Denies any complaints of abdominal pain. No nausea vomiting or diarrhea. Blood pressure did improve. Patient is also on antibiotics for left foot infection with cefazolin. Laboratory data showed sodium 128 potassium 4.6 chloride 95 bicarb is 22.3 BUN 6.7 creatinine 0.8 and magnesium 1.5 which is being replaced. Nephrology and ID is on board. Patient may require another paracentesis once blood pressure is stable. 09/27/2022 Patient is currently on the medical floor. Awake alert and oriented x3. No complaints of chest pain or abdominal pain. No nausea vomiting or diarrhea. Abdomen is distended again and will require paracentesis and repeat paracentesis was ordered. Sodium level otherwise down to 125 today. Blood pressures low today 95/64. Nephrology is on board. ID is also following. Patient will require paracentesis again. WBC 9.8 hemoglobin 10.5 and platelets 120 sodium 125 potassium 4.5 chloride 96 bicarb is 18.8 BUN 6.9 and creatinine 0.8 and calcium 8.0. 09/28/2022 Patient is scheduled for paracentesis again today. Patient will be given albumin postprocedure no nausea vomiting or diarrhea. Patient is being ramona nued on cefazolin for foot infection. ID and nephrology is on board. No complaints of chest pain or shortness of breath. Patient has been afebrile. Anticipate discharge once blood pressure is stable postprocedure and follow-up sodium level. 09/29/2022 Patient is status post paracentesis with 5.9 L off yesterday. Sodium today 128. Continues on fluid restriction, midodrine. ID following and patient remains on cefazolin and local wound care with aquacel. BP remains on the lower side. Patient to increase activity level and possible DC home tomorrow. 09/30/2022 Patient is evaluated today resting in bed. Sodium level today 124, received a dose of samsca. Followed by infectious disease for left foot wound/cellulitis and continues on IV cefazolin and local wound care with aquacel. Blood pressure 94/64 today, on room air. Afebrile. 10/02/2022 Patient is seen and evaluated in follow-up today status post another dose of Samsca with nephrology following and sodium remains 125. Oral intake is poor to fair encourage oral intake. Patient continues with being lethargic although appears to be at her baseline. Patient is maintained on oral Keflex with infectious disease following for cellulitis of the lower extremity on the left as patient has no IV access at this time. Will add ammonia level which is currently pending. Patient blood pressure on the softer side as well. Creatinine jumped up and again nephrology is following. Plan is for return home with home care when stabilized and discharged. Nephrology recommending giving a SolTab and another dose of Samsca with follow-up labs in the a.m. and discuss possible discharge in the next 24-48 hours. Patient is currently afebrile denies chest pain or shortness of breath and does not report any nausea or vomiting at this time. Review of Systems Constitutional: Denied any fatigue denied any fever. Cardio vascular: denied any chest pain, palpitations Gastrointestinal: denied any nausea, vomiting, diarrhea. Has some lower abd ominal pain. Pulmonary: Denied any shortness of breath cough Neurologic denied any new focal deficits Active Medications Acetaminophen (Acetaminophen Tab 325 Mg Tab) 650 mg PO Q4HR PRN PRN Reason: Fever and/ or Pain Last Admin: 10/02/22 05:42 Dose: 650 mg Benzocaine/Menthol (Benzocaine/Menthol Lozeng 1 Each Lozenge) 1 each MUCOUS MEM Q6HR PRN PRN Reason: Sore Throat Cephalexin (Cephalexin 500 Mg Cap) 500 mg PO TID [facility]; Protocol Last Admin: 10/02/22 07:15 Dose: 500 mg Cyanocobalamin (Cyanocobalamin 500 Mcg Tab) 1,000 mcg PO DAILY [facility] Last Admin: 10/02/22 07:15 Dose: 1,000 mcg Folic Acid (Folic Acid 1 Mg Tab) 1 mg PO DAILY [facility] Last Admin: 10/02/22 07:16 Dose: 1 mg Furosemide (Furosemide 20 Mg Tab) 20 mg PO DAILY [facility] Last Admin: 10/02/22 07:15 Dose: Not Given Lactulose (Lactulose 20 Gm/30 Ml Cup) 20 gm PO DAILY PRN PRN Reason: Constipation Metoclopramide HCl (Metoclopramide 5 Mg Tab) 5 mg PO AC-TID PRN PRN Reason: Nausea And Vomiting Last Admin: 12/24/22 22:12 Dose: 5 mg Metoprolol Tartrate (Metoprolol Tartrate 12.5 Mg Tab) 12.5 mg PO BID [facility] Last Admin: 10/02/22 07:15 Dose: Not Given Midodrine (Midodrine 5 Mg Tab) 10 mg PO AC-TID [facility] Last Admin: 10/02/22 05:42 Dose: 10 mg Miscellaneous Information (Potassium Replacement Protocol 1 Each Misc) 1 each MISCELLANE DAILY PRN; Protocol PRN Reason: Per Protocol Miscellaneous Information (Magnesium Replacement Protocol 1 Each Misc) 1 each MISCELLANE DAILY PRN; Protocol PRN Reason: Per Protocol Multivitamins (Multivitamins, Thera 1 Each Tab) 1 each PO DAILY [facility] Last Admin: 10/02/22 07:16 Dose: 1 each Ondansetron HCl (Ondansetron 4 Mg/2 Ml Vial) 4 mg IVP Q6HR PRN PRN Reason: Nausea And Vomiting Last Admin: 09/30/22 02:21 Dose: 4 mg Pantoprazole Sodium (Pantoprazole 40 Mg Tablet) 40 mg PO AC-BID [facility] Last Admin: 10/02/22 07:15 Dose: 40 mg Spironolactone (Spironolactone 25 Mg Tab) 25 mg PO DAILY [facility] Last Admin: 10/02/22 07:16 Dose: 25 mg PHYSICAL EXAMINATION: GENERAL: The patient is alert and oriented x3, not in any acute distress. Well developed, well nourished. HEENT: Pupils are round and equally reacting to light. EOMI. No scleral icterus. No conjunctival pallor. Normocephalic, atraumatic. No pharyngeal erythema. No thyromegaly. CARDIOVASCULAR: S1 and S2 muffled PULMONARY: Managed breath sounds bilaterally with no wheezing or rhonchi noted. ABDOMEN: Soft, nontender, nondistended, normoactive bowel sounds. No palpable organomegaly. MUSCULOSKELETAL: No joint swelling or deformity. EXTREMITIES: No cyanosis, clubbing, or pedal edema. NEUROLOGICAL: Gross neurological examination did not reveal any focal deficits. Kerlex to left foot. SKIN: No rashes. Assessment: De-Compensated alcoholic liver disease with possible cirrhosis with ascites and jaundice. s/ p paracentesis Post paracentesis hypotension. Status post albumin dose and was requiring pressor support. Currently off pressors. Started on midodrine. Hyponatremia, Hypervolemia and also related to alcohol use disorder Elevated lactic acid Left foot cellulitis with nonhealing wound COPD, no acute exacerbation History of GERD Hypertension Hyperlipidemia History of rheumatoid arthritis Full Code Plan: Patient continues on fluid restriction, received a dose of samsca today along with a Salt Tab and sodium remains 125, nephrology recommends following up with a.m. labs Infectious disease is following and patient was started on oral Keflex and will continue with local wound care Will obtain ammonia level and patient is supposed to be taking lactulose Encouraged oral intake and increased activity as tolerated Home with homecare when medically stable Possible discharge in 24-48 hours. The impression and plan of care has been dictated by Bee Pichardo, Nurse Practitioner as directed. Dr. Orville MD I have performed a history and examination and MDM of this patient, discussed the same with the dictator, and agree with the dictator's assessment and plan as written ,documented as a scribe. Based on total visit time, I have performed more than 50% of the visit. Objective - Vital Signs Vital signs: Vital Signs Temp 97.8 F 10/02/22 07:58 Pulse 66 10/02/22 07:58 Resp 17 10/02/22 07:58 BP 92/54 10/02/22 07:58 Pulse Ox 95 10/02/22 07:58 FiO2 Intake & Output 10/01/22 10/02/22 10/02/22 18:59 06:59 18:59 Weight 71.5 kg Other: Voiding Method Incontinent # Voids 1 # Bowel Movements 1 - Labs CBC & Chem 7: 10/02/22 04:26 10/02/22 04:26 Labs: Abnormal Lab Results - Last 24 Hours (Table) 10/02/22 10/02/22 Range/Units 04:26 04:26 RBC 2.86 L (4.10-5.20) X 10*6/uL Hgb 10.0 L (12.0-15.0) g/dL Hct 28.0 L (37.2-46.3) % MCV 97.9 H (80.0-97.0) fL MCH 35.0 H (27.0-32.0) pg RDW 17.7 H (11.5-14.5) % Monocytes # 1.22 H (0.20-1.00) X 10*3/uL Sodium 125 L (135-145) mmol/L Chloride 95 L (96-109) mmol/L Anion Gap 8.70 L (10.00-18.00) mmol/L Est GFR (CKD-EPI)AfAm 39.6 L (60.0-200.0) Est GFR (CKD-EPI)NonAf 34.2 L (60.0-200.0) Calcium 8.5 L (8.7-10.3) mg/dL Total Bilirubin 2.30 H (0.30-1.20) mg/dL ALT 6 L (8-44) U/L Total Protein 4.6 L (6.2-8.2) g/dL Albumin 2.6 L (3.8-4.9) g/dL Albumin/Globulin Ratio 1.30 L (1.60-3.17) g/dL
[2022-10-03] MEDS: PANTOPRAZOLE 40 MG TABLET PO SCH ×2 (05:52→16:48)
[2022-10-03] MEDS: MIDODRINE 5 MG TAB PO SCH ×3 (05:52→16:48)
[2022-10-03] MEDS: METOPROLOL TARTRATE 12.5 MG TAB PO SCH ×2 (07:50→20:55)
[2022-10-03] MEDS: FUROSEMIDE 20 MG TAB PO SCH (07:50)
[2022-10-03] MEDS: CEPHALEXIN 500 MG CAP PO SCH ×3 (07:51→21:01)
[2022-10-03] MEDS: CYANOCOBALAMIN 500 MCG TAB PO SCH (07:51)
[2022-10-03] MEDS: MULTIVITAMINS, THERA 1 EACH TAB PO SCH (07:52)
[2022-10-03] MEDS: FOLIC ACID 1 MG TAB PO SCH (07:52)
[2022-10-03] MEDS: SPIRONOLACTONE 25 MG TAB PO SCH (07:52)
[2022-10-03 11:18] LABS: African American GFR (CKD) 40 (>60 ml/min/1.73 sqM); Anion Gap 5 mmol/L; Blood Urea Nitrogen 25 mg/dL (7-17); Calcium 8.3 mg/dL (8.4-10.2); Carbon Dioxide 23 mmol/L (22-30); Chloride 97 mmol/L (98-107); Glucose 113 mg/dL (74-99); Non-African American GFR(CKD) 35 (>60 ml/min/1.73 sqM); Potassium 4.8 mmol/L (3.5-5.1); Sodium 125 mmol/L (137-145)
[2022-10-03] MEDS: LACTULOSE 20 GM/30 ML CUP PO SCH ×3 (12:00→21:02)
--- NOTE | 2022-10-03 12:21 | P.PN ---
Subjective Progress Note Date: 10/02/22 Principal diagnosis: left foot wound and a positive blood culture Patient is a 71 year old female with multiple comorbidity patient did have alcohol liver disease/cirrhosis with multiple admission to the hospital for ascites and requiring paracentesis last admission was back in June with the patient did require paracentesis 2 during that admission patient also develop swelling to the left foot area patient did have a CT of the foot that was suggestive mostly hematoma no evidence of any abscess , patient presented to hospital with abdominal distention worsening ascites and need for paracentesis she did have a positive blood culture and a nonhealing wound to the left foot with a positive culture , the patient did have a repeat paracentesis done on 09/28/2022 with removal of 5.9 L straw-colored fluid on today's evaluation that is 10/02/2022, the patient remains to be afebrile, the patient is breathing comfortably on room air. The patient denies chest pain or shortness of breath , the patient denies abdominal discomfort today, the patient denies any nausea or vomiting, patient pain to the left foot wound is currently controlled Objective - Vital Signs Vital signs: Vital Signs Temp 97.8 F 10/02/22 07:58 Pulse 66 10/02/22 07:58 Resp 17 10/02/22 07:58 BP 92/54 10/02/22 07:58 Pulse Ox 95 10/02/22 07:58 FiO2 Intake & Output 10/01/22 10/02/22 10/02/22 18:59 06:59 18:59 Weight 71.5 kg Other: Voiding Method Incontinent # Voids 1 # Bowel Movements 1 - Exam GENERAL DESCRIPTION: An elderly female lying in bed in no distress RESPIRATORY SYSTEM: Unlabored breathing , decreased breath sounds at bases HEART: S1 S2 regular rate and rhythm , ABDOMEN: Soft , abdominal distention EXTREMITIES: left foot dorsum wound is currently dressed no drainage on dressing - Labs CBC & Chem 7: 10/02/22 04:26 10/03/22 10:48 Labs: Abnormal Lab Results - Last 24 Hours (Table) 10/02/22 10/02/22 Range/Units 04:26 04:26 RBC 2.86 L (4.10-5.20) X 10*6/uL Hgb 10.0 L (12.0-15.0) g/dL Hct 28.0 L (37.2-46.3) % MCV 97.9 H (80.0-97.0) fL MCH 35.0 H (27.0-32.0) pg RDW 17.7 H (11.5-14.5) % Monocytes # 1.22 H (0.20-1.00) X 10*3/uL Sodium 125 L (135-145) mmol/L Chloride 95 L (96-109) mmol/L Anion Gap 8.70 L (10.00-18.00) mmol/L Est GFR (CKD-EPI)AfAm 39.6 L (60.0-200.0) Est GFR (CKD-EPI)NonAf 34.2 L (60.0-200.0) Calcium 8.5 L (8.7-10.3) mg/dL Total Bilirubin 2.30 H (0.30-1.20) mg/dL ALT 6 L (8-44) U/L Total Protein 4.6 L (6.2-8.2) g/dL Albumin 2.6 L (3.8-4.9) g/dL Albumin/Globulin Ratio 1.30 L (1.60-3.17) g/dL Assessment and Plan (1) Abscess of foot Current Visit: Yes Status: Acute Code(s): L02.619 - CUTANEOUS ABSCESS OF UNSPECIFIED FOOT SNOMED Code(s): 456348500 Plan: patient with positive blood culture finalized as coagulase negative staph likely skin contamination, blood culture has been repeated on 09/20/2022 and they have been negative so for 2patient with a nonhealing wound on the dorsum aspect of the left foot with a culture grew MSSA 3Patient continued to show slow clinical improvement as for as left foot cellulitis is concerned 4- patient to continue with oral Keflex and monitor clinical course closely Time with Patient: Less than 30
--- NOTE | 2022-10-03 12:23 | P.PN ---
Subjective Progress Note Date: 10/03/22 Principal diagnosis: left foot wound and a positive blood culture Patient is a 71 year old female with multiple comorbidity patient did have alcohol liver disease/cirrhosis with multiple admission to the hospital for ascites and requiring paracentesis last admission was back in June with the patient did require paracentesis 2 during that admission patient also develop swelling to the left foot area patient did have a CT of the foot that was suggestive mostly hematoma no evidence of any abscess , patient presented to hospital with abdominal distention worsening ascites and need for paracentesis she did have a positive blood culture and a nonhealing wound to the left foot with a positive culture , the patient did have a repeat paracentesis done on 09/28/2022 with removal of 5.9 L straw-colored fluid on today's evaluation that is 10/03/2022, the patient continues to be afebrile, the patient is breathing comfortably on room air. The patient denies cough or sputum production , the patient distention has decreased, the patient denies any nausea or vomiting, patient pain to the left foot wound has decreased in intensity Objective - Vital Signs Vital signs: Vital Signs Temp 98.4 F 10/03/22 07:07 Pulse 74 10/03/22 07:07 Resp 18 10/03/22 07:07 BP 88/56 10/03/22 08:28 Pulse Ox 97 10/03/22 07:07 FiO2 Intake & Output 10/02/22 10/03/22 10/03/22 18:59 06:59 18:59 Intake Total 118 240 Balance 118 240 Intake: Oral 118 240 Other: Voiding Method Incontinent Diaper Diaper Incontinent Incontinent # Voids 1 # Bowel Movements 2 1 - Exam GENERAL DESCRIPTION: An elderly female lying in bed in no distress RESPIRATORY SYSTEM: Unlabored breathing , decreased breath sounds at bases HEART: S1 S2 regular rate and rhythm , ABDOMEN: Soft , abdominal distention EXTREMITIES: left foot dorsum wound is currently dressed no drainage on dressing - Labs CBC & Chem 7: 10/02/22 04:26 10/03/22 10:48 Labs: Abnormal Lab Results - Last 24 Hours (Table) 10/02/22 10/03/22 10/03/22 Range/Units 12:58 10:48 10:48 Sodium 125 L (137-145) mmol/L Chloride 97 L (98-107) mmol/L BUN 25 H (7-17) mg/dL Creatinine 1.49 H (0.52-1.04) mg/dL Glucose 113 H (74-99) mg/dL Calcium 8.3 L (8.4-10.2) mg/dL Ammonia 56 H 40 H (<30) umol/L Assessment and Plan (1) Abscess of foot Current Visit: Yes Status: Acute Code(s): L02.619 - CUTANEOUS ABSCESS OF UNSPECIFIED FOOT SNOMED Code(s): 521072877 Plan: patient with positive blood culture finalized as coagulase negative staph likely skin contamination, blood culture has been repeated on 09/20/2022 and they have been negative so for 2patient with a nonhealing wound on the dorsum aspect of the left foot with a culture grew MSSA 3Patient continued to show slow clinical improvement as for as left foot cellulitis is concerned, patient to continue with oral Keflex for about 7-10 days on discharge discussed with the [employer] for admitting team Time with Patient: Less than 30
[2022-10-03] MEDS ORDERED: TOLVAPTAN 30 MG TABLET PO ONE (12:39)
--- NOTE | 2022-10-03 12:39 | P.PN ---
Subjective Patient is seen in follow-up for hyponatremia. Serum sodium staying at about 125. Patient has received Samsca almost on a daily basis Oral intake is fair. Nonoliguric. Has external catheter. Blood pressure on the lower side. Underwent paracentesis of 5.9 liters drained on 09/28/2022 No significant complaints. Serum creatinine is noted to be slowly increasing to 1.49 mg/dL today Objective - Vital Signs Vital signs: Vital Signs Temp 98.4 F 10/03/22 07:07 Pulse 74 10/03/22 07:07 Resp 18 10/03/22 07:07 BP 88/56 10/03/22 08:28 Pulse Ox 97 10/03/22 07:07 FiO2 Intake & Output 10/02/22 10/03/22 10/03/22 18:59 06:59 18:59 Intake Total 118 240 Balance 118 240 Intake: Oral 118 240 Other: Voiding Method Incontinent Diaper Diaper Incontinent Incontinent # Voids 1 # Bowel Movements 2 1 - Exam Awake, comfortable, no acute distress Examination of the heart S1 and S2 Examination lungs decreased breath sounds at the bases Abdomen is soft nontender, distended Examination lower extremities shows trace edema bilaterally [employer] exam grossly intact - Labs CBC & Chem 7: 10/02/22 04:26 10/03/22 10:48 Labs: Abnormal Lab Results - Last 24 Hours (Table) 10/02/22 10/03/22 10/03/22 Range/Units 12:58 10:48 10:48 Sodium 125 L (137-145) mmol/L Chloride 97 L (98-107) mmol/L BUN 25 H (7-17) mg/dL Creatinine 1.49 H (0.52-1.04) mg/dL Glucose 113 H (74-99) mg/dL Calcium 8.3 L (8.4-10.2) mg/dL Ammonia 56 H 40 H (<30) umol/L Assessment and Plan Assessment: 1. Hyponatremia. Hypervolemic with ascites. Sodium level 125. Receiving Samsca daily for the last 3-4 days. In view of worsening renal function rule out urine retention. Urine sodium less than 20 and urine osmolality 366 dated 09/19/2022. Cortisol level 9.2. TSH 6 with normal free T4 dated 09/18/2022. 2. Liver cirrhosis. 3. Ascites status post paracentesis with 6.1 L drained 09/21/2022; 5.9 L drained 09/28/2022. 4. Hypokalemia from poor intake and GI losses. Replaced. Better. 5. Hypomagnesemia from poor intake and GI losses. Improved. 6. Hypotension with cortisol level at 11.2. Maintained on midodrine. Repeat blood cultures from 09/20/2022 were negative. 7. Coagulase negative staph bacteremia noted on blood cultures from 09/18/2022 Plan: Check bladder scan rule out urine retention Repeat Samsca today Hold Lasix
--- NOTE | 2022-10-03 14:10 | CDI ---
Documentation Clarification Form Date: 10/03/2022 12:42:40 PM From: Ritika Emery RN CCDS Admit Date: 09/18/2022 5:28:00 PM Patient Name: Alexsandra Manrique Visit Number: [id number] Discharge Date: ATTENTION: The Clinical Documentation Specialists (CDI) and [facility] Coding Staff appreciate your assistance in clarifying documentation. Please respond to the clarification below the line at the bottom and electronically sign. The CDI & [facility] Coding staff will review the response and follow-up if needed. Please note: Queries are made part of the Legal Health Record. If you have any questions, please contact the author of this message via ITS. Dr. Sabillon Malnutrition is documented 10/01/2022, Wound care consult. Additional clarification regarding the severity of malnutrition is requested. History/Risk Factors: 71-year-old female presents to the ED with swelling to the abdomen and shortness of breath. Medical history. Cirrhosis left foot wound, COPD and HTN. 09/19, H&P. Clinical Indicators: Wound Care consult: 09/26 I would also recommend attention t her nutrition with an albumin of 2. I would consider assessment of her nutritional status as it relates to her macrocytic anemia considering a B12 deficiency. Dietary Consult: Current BMI: 25.4: Weight 71.5kg; Height 5ft 6in BMI normal Estimated Nutritional Needs: current weight used Needs in Kcals: Energy needs 1600Kcal Needs in Protein: Estimated protein range: 1.25 1.4 grams/kg related to the wound. Estimated protein 89-99 grams/day Needs In Fluid 2130mls/day; Flued comment 30ml/kcal related to the wound. Nutritional Diagnosis Intake Nutrient needs: Increased calories, protein, zinc, vitamin C Related to the need for wound healing. Left foot wound. : Treatment: Monitoring PO and Supplement Intake, Dietary Education, Monitor skin integrity. Dietary Consult: See above Supplements: Ensure Max BID Lab monitoring: Chemistry Please clarify the type of malnutrition, if known: [ ] Moderate Protein-Calorie Malnutrition [ X ] Severe Protein-Calorie Malnutrition [ ] Other condition, please specify [ ] Unable to Determine (Template Last Revised: November 2020) MTDD
[2022-10-03] MEDS ORDERED: SODIUM CHLORIDE 0.9% 500 ML 500 ML IV ONE (14:54)
[2022-10-03] MEDS: ACETAMINOPHEN TAB 325 MG TAB PO PRN (21:01)
--- NOTE | 2022-10-04 03:41 | P.PN ---
Subjective Progress Note Date: 10/03/22 Pleasant 71 years old female with multiple medical problems as below. Presents because of c/o swelling to abdomen with short of breath hx liver cirrohsis lung sounds crackles bilat jaundice eye with wound to left foot. She comes because of abdominal distention and some little dyspnea, no significant chest pain, no coughing, she has some mild periumbilical abdominal pain for the last 10 days, nonspecific, nonradiating She denies any headache dizziness or weakness or numbness, no urinary complaints. No vomiting or diarrhea. Also patient is awake and alert to place and person but she is disoriented to time, she thought she came to the hospital 1 week ago but actually she came last night. Patient was updated Patient also she has a chronic ulcer in her left foot and there is still some discharge but there is no surrounding cellulitis and x-ray looks negative. Patient was recently discharged from this hospital 06/10-07/16 for alcoholic liver hepatitis and left foot infection and she underwent paracentesis 2. Also she had hypernatremia 106 went up to 125 open discharge Currently presents also with abdominal distention and shortness of breath. She denies a smoking or illicit drugs, first she told me she drinks wine only one cup twice a month but then when I ask her more she said last week she drink twice however she denies daily drinking of alcohol. At baseline she walks with a walker Vitals looks stable, afebrile Sodium 117-118 on admission. Lactic acid elevated 4.1, currently 2.3. Bilirubin elevated 4.9-6.2, last time she was discharged on bilirubin of 3.6 and on 08/14/2022 was 5.7 Mildly elevated liver enzymes, AST 4.9, ALT normal 24. Urine osmolality is 291 Serum alcohol: Less than 10 Foot x-ray showing no fracture dislocation In the emergency room she received Unasyn, ceftriaxone 1 and placed on normal saline 75 mL/h with nephrology been consulted 09/21/2022 Patient is currently in the MICU. Lying in the bed. Awake alert and oriented x3. Patient is status post paracentesis ultrasound-guided with 6.1 L fluid removal. Patient was hypotensive postoperatively and was started pressor support. Patient was also given albumin. Blood cultures grew MSSA. Antibiotics changed to cefazolin. Vancomycin has been discontinued. Fluid cytology is negative for SBP. WBC count 23. Laboratory data showed WBC 9.0 hemoglobin 11.8 and platelets 134 Sodium 122 potassium 3.1 chloride 94 bicarb is 19 BUN 7 creatinine 0.63 and calcium 7.4. Pulmonary and ID and nephrology is on board. 09/22/2022 Patient is currently resting in the bed. Awake alert and oriented x3. No comp laints of chest pain or worsening shortness of breath. Patient is off pressor support. Latham catheter has been discontinued. Patient was started on midodrine. Laboratory data showed sodium level increased to 127 potassium 3.6 chloride 97 blood sugar 105 and magnesium level increase it to 2.1. Albumin 2.8. 09/23/2022 Patient in the MICU and awaiting to be transferred to telemetry unit. Patient is resting in bed. Awake alert and oriented. No complaints of chest pain or worsening shortness of breath. Nausea vomiting abdominal pain. Patient was tachycardic last night and was having PVCs. Patient was started on low-dose beta-yoana. Heart rate is better controlled Blood pressure is stable and is on midodrine. Headache or dizziness or lightheadedness. Patient is being current antibiotics and follow-up cefazolin for foot infection. 09/24/2022 Patient is currently resting in bed. Awake alert and oriented x3. No complaints of chest pain or shortness of breath. Blood pressure is stable. Continue on midodrine. Heart rate is in 70s. Patient does adequate have urine output. Continued on Lasix and Aldactone. Denies any complaints of headache or dizziness or lightheadedness. Patient denies any antibiotics -cefazolin Laboratory data showed WBC 9.6 hemoglobin 11.4 and platelets 135, sodium 125, potassium 3.3 chloride 94 bicarb is 25 BUN 3 and creatinine 0.64 and magnesium 1.2 which is being replaced. Albumin 2.6. Nephrology and ID is on board. 09/25/2022 Patient is currently resting in bed. Awake alert and oriented. No complaints of chest pain or shortness of breath. Denies any complaints of foot pain. No nausea vomiting abdominal pain or diarrhea. Repeat blood cult ures have been negative. Patient is being current on cefazolin and wound care is being done. Laboratory data showed a sodium level 124 potassium 4.5 chloride 95 bicarb is 25 BUN 5 and creatinine 0.63 and calcium 7.5. Nephrology is on board. 09/26/2022 Patient is resting in the bed. Awake alert and oriented x3. Sodium level improved to 128 today. Denies any complaints of abdominal pain. No nausea vomiting or diarrhea. Blood pressure did improve. Patient is also on antibiotics for left foot infection with cefazolin. Laboratory data showed sodium 128 potassium 4.6 chloride 95 bicarb is 22.3 BUN 6.7 creatinine 0.8 and magnesium 1.5 which is being replaced. Nephrology and ID is on board. Patient may require another paracentesis once blood pressure is stable. 09/27/2022 Patient is currently on the medical floor. Awake alert and oriented x3. No complaints of chest pain or abdominal pain. No nausea vomiting or diarrhea. Abdomen is distended again and will require paracentesis and repeat paracentesis was ordered. Sodium level otherwise down to 125 today. Blood pressures low today 95/64. Nephrology is on board. ID is also following. Patient will require paracentesis again. WBC 9.8 hemoglobin 10.5 and platelets 120 sodium 125 potassium 4.5 chloride 96 bicarb is 18.8 BUN 6.9 and creatinine 0.8 and calcium 8.0. 09/28/2022 Patient is scheduled for paracentesis again today. Patient will be given albumin postprocedure no nausea vomiting or diarrhea. Patient is being ramona nued on cefazolin for foot infection. ID and nephrology is on board. No complaints of chest pain or shortness of breath. Patient has been afebrile. Anticipate discharge once blood pressure is stable postprocedure and follow-up sodium level. 09/29/2022 Patient is status post paracentesis with 5.9 L off yesterday. Sodium today 128. Continues on fluid restriction, midodrine. ID following and patient remains on cefazolin and local wound care with aquacel. BP remains on the lower side. Patient to increase activity level and possible DC home tomorrow. 09/30/2022 Patient is evaluated today resting in bed. Sodium level today 124, received a dose of samsca. Followed by infectious disease for left foot wound/cellulitis and continues on IV cefazolin and local wound care with aquacel. Blood pressure 94/64 today, on room air. Afebrile. 10/02/2022 Patient is seen and evaluated in follow-up today status post another dose of Samsca with nephrology following and sodium remains 125. Oral intake is poor to fair encourage oral intake. Patient continues with being lethargic although appears to be at her baseline. Patient is maintained on oral Keflex with infectious disease following for cellulitis of the lower extremity on the left as patient has no IV access at this time. Will add ammonia level which is currently pending. Patient blood pressure on the softer side as well. Creatinine jumped up and again nephrology is following. Plan is for return home with home care when stabilized and discharged. Nephrology recommending giving a SolTab and another dose of Samsca with follow-up labs in the a.m. and discuss possible discharge in the next 24-48 hours. Patient is currently afebrile denies chest pain or shortness of breath and does not report any nausea or vomiting at this time. 10/03/2022 Patient is seen in follow-up this morning with nephrology following. Sodium remains 125 and patient being given another high dose of Samsca. Ammonia level slightly improved at 40 and will make lactulose scheduled for now and follow-up with repeat labs. Patient is afebrile denies chest pain or shortness of breath. Encouraged oral intake increased activity as tolerated. Infectious disease following as well and patient will continue on Keflex and complete a week's course in the outpatient setting. Oral intake is fair and recommend follow-up labs. Review of Systems Constitutional: Denied any fatigue denied any fever. Cardio vascular: denied any chest pain, palpitations Gastrointestinal: denied any nausea, vomiting, having multiple loose bowel movements Pulmonary: Denied any shortness of breath cough Neurologic denied any new focal deficits Active Medications Acetaminophen (Acetaminophen Tab 325 Mg Tab) 650 mg PO Q4HR PRN PRN Reason: Fever and/ or Pain Last Admin: 10/03/22 21:01 Dose: 650 mg Benzocaine/Menthol (Benzocaine/Menthol Lozeng 1 Each Lozenge) 1 each MUCOUS MEM Q6HR PRN PRN Reason: Sore Throat Cephalexin (Cephalexin 500 Mg Cap) 500 mg PO TID [facility]; Protocol Last Admin: 10/03/22 21:01 Dose: 500 mg Cyanocobalamin (Cyanocobalamin 500 Mcg Tab) 1,000 mcg PO DAILY [facility] Last Admin: 10/03/22 07:51 Dose: 1,000 mcg Folic Acid (Folic Acid 1 Mg Tab) 1 mg PO DAILY [facility] Last Admin: 10/03/22 07:52 Dose: 1 mg Lactulose (Lactulose 20 Gm/30 Ml Cup) 20 gm PO TID [facility] Last Admin: 10/03/22 21:02 Dose: 20 gm Metoclopramide HCl (Metoclopramide 5 Mg Tab) 5 mg PO AC-TID PRN PRN Reason: Nausea And Vomiting Last Admin: 09/22/22 22:12 Dose: 5 mg Metoprolol Tartrate (Metoprolol Tartrate 12.5 Mg Tab) 12.5 mg PO BID [facility] Last Admin: 10/03/22 20:55 Dose: Not Given Midodrine (Midodrine 5 Mg Tab) 10 mg PO AC-TID [facility] Last Admin: 10/03/22 16:48 Dose: 10 mg Miscellaneous Information (Potassium Replacement Protocol 1 Each Misc) 1 each MISCELLANE DAILY PRN; Protocol PRN Reason: Per Protocol Miscellaneous Information (Magnesium Replacement Protocol 1 Each Misc) 1 each MISCELLANE DAILY PRN; Protocol PRN Reason: Per Protocol Multivitamins (Multivitamins, Thera 1 Each Tab) 1 each PO DAILY [facility] Last Admin: 10/03/22 07:52 Dose: 1 each Ondansetron HCl (Ondansetron 4 Mg/2 Ml Vial) 4 mg IVP Q6HR PRN PRN Reason: Nausea And Vomiting Last Admin: 09/30/22 02:21 Dose: 4 mg Pantoprazole Sodium (Pantoprazole 40 Mg Tablet) 40 mg PO AC-BID [facility] Last Admin: 10/03/22 16:48 Dose: 40 mg Spironolactone (Spironolactone 25 Mg Tab) 25 mg PO DAILY [facility] Last Admin: 10/03/22 07:52 Dose: 25 mg PHYSICAL EXAMINATION: GENERAL: The patient is alert and oriented x3, not in any acute distress. Well developed, well nourished. HEENT: Pupils are round and equally reacting to light. EOMI. No scleral icterus. No conjunctival pallor. Normocephalic, atraumatic. No pharyngeal erythema. No thyromegaly. CARDIOVASCULAR: S1 and S2 muffled PULMONARY: Diminished breath sounds bilaterally with no wheezing or rhonchi n oted. ABDOMEN: Soft, nontender, nondistended, normoactive bowel sounds. No palpable organomegaly. MUSCULOSKELETAL: No joint swelling or deformity. EXTREMITIES: No cyanosis, clubbing, or pedal edema. NEUROLOGICAL: Gross neurological examination did not reveal any focal deficits. Kerlex to left foot. SKIN: No rashes. Assessment: De-Compensated alcoholic liver disease with possible cirrhosis with ascites and jaundice. s/ p paracentesis Post paracentesis hypotension. Status post albumin dose and was requiring pressor support. Currently off pressors. Started on midodrine. Hyponatremia, Hypervolemia and also related to alcohol use disorder Elevated lactic acid Left foot cellulitis with nonhealing wound COPD, no acute exacerbation History of GERD Hypertension Hyperlipidemia History of rheumatoid arthritis Full Code Plan: Patient continues on fluid restriction, received another large dose of samsca today and sodium remains 125, nephrology recommends following up with a.m. labs Infectious disease is following and patient is continued on oral Keflex and will continue with local wound care, to complete a week's course in the outpatient setting Ammonia mildly elevated although improved at 40 and will continue with lactulose 3 times a day and follow-up labs Encouraged oral intake and increased activity as tolerated Home with homecare when medically stable Possible discharge in 24-48 hours. The impression and plan of care has been dictated by Bee Pichardo, Nurse Practitioner as directed. Dr. Orville MD I have performed a history and examination and MDM of this patient, discussed the same with the dictator, and agree with the dictator's assessment and plan as written ,documented as a scribe. Based on total visit time, I have performed more than 50% of the visit. Objective - Vital Signs Vital signs: Vital Signs Temp 98.4 F 10/03/22 07:07 Pulse 74 10/03/22 07:07 Resp 18 10/03/22 07:07 BP 88/56 10/03/22 08:28 Pulse Ox 97 10/03/22 07:07 FiO2 Intake & Output 10/02/22 10/03/22 10/03/22 18:59 06:59 18:59 Intake Total 118 240 Output Total 706 Balance 118 240 -706 Intake: Oral 118 240 Output: Post Void Residual 706 Other: Voiding Method Incontinent Diaper Diaper Incontinent Incontinent # Voids 1 # Bowel Movements 2 1 - Labs CBC & Chem 7: 10/02/22 04:26 10/03/22 10:48 Labs: Abnormal Lab Results - Last 24 Hours (Table) 10/03/22 10/03/22 Range/Units 10:48 10:48 Sodium 125 L (137-145) mmol/L Chloride 97 L (98-107) mmol/L BUN 25 H (7-17) mg/dL Creatinine 1.49 H (0.52-1.04) mg/dL Glucose 113 H (74-99) mg/dL Calcium 8.3 L (8.4-10.2) mg/dL Ammonia 40 H (<30) umol/L Microbiology - Last 24 Hours (Table) 10/02/22 11:30 Blood Culture - Preliminary Blood No Growth after 24 hours
[2022-10-04] MEDS: MIDODRINE 5 MG TAB PO SCH ×3 (06:41→17:13)
[2022-10-04] MEDS: PANTOPRAZOLE 40 MG TABLET PO SCH ×2 (06:41→17:13)
[2022-10-04 07:41] VITALS: RESP 16
[2022-10-04] MEDS: MULTIVITAMINS, THERA 1 EACH TAB PO SCH (08:14)
[2022-10-04] MEDS: LACTULOSE 20 GM/30 ML CUP PO SCH ×2 (08:14→16:57)
[2022-10-04] MEDS: METOPROLOL TARTRATE 12.5 MG TAB PO SCH (08:14)
[2022-10-04] MEDS: SPIRONOLACTONE 25 MG TAB PO SCH (08:14)
[2022-10-04] MEDS: FOLIC ACID 1 MG TAB PO SCH (08:14)
[2022-10-04] MEDS: CYANOCOBALAMIN 500 MCG TAB PO SCH (08:14)
[2022-10-04] MEDS: CEPHALEXIN 500 MG CAP PO SCH ×2 (08:14→17:13)
[2022-10-04 10:05] LABS: African American GFR (CKD) 39.6 (60.0-200.0); Anion Gap 11.7 mmol/L (10.00-18.00); BUN/Creat Ratio 16.2 Ratio (12.00-20.00); Blood Urea Nitrogen 24.3 mg/dL (9.0-27.0); Calcium 8.7 mg/dL (8.7-10.3); Carbon Dioxide 19.3 mmol/L (20.0-27.5); Non-African American GFR(CKD) 34.2 (60.0-200.0); Potassium 5.3 mmol/L (3.5-5.5)
[2022-10-04 13:44] VITALS: BP 98/69; PULSE 85; TEMP 98.8
--- NOTE | 2022-10-04 14:23 | P.PN ---
Subjective Patient is seen in follow-up for hyponatremia. Serum sodium staying at about 125. Patient has received Samsca almost on a daily basis Oral intake is fair. Nonoliguric. Has external catheter. Blood pressure on the lower side. Underwent paracentesis of 5.9 liters drained on 09/28/2022 No significant complaints. Serum creatinine is noted to be slowly increasing to 1.5 mg/dL today. No urine retention. Status post IV fluid bolus yesterday as blood pressure remains low. Serum sodium increased to 128 today. Objective - Vital Signs Vital signs: Vital Signs Temp 98.8 F 10/04/22 13:43 Pulse 85 10/04/22 13:43 Resp 16 10/04/22 13:43 BP 98/69 10/04/22 13:43 Pulse Ox 99 10/04/22 13:43 FiO2 Intake & Output 10/03/22 10/04/22 10/04/22 18:59 06:59 18:59 Output Total 706 Balance -706 Output: Post Void Residual 706 Other: Voiding Method Diaper Diaper Incontinent Incontinent # Voids 1 # Bowel Movements 1 1 - Exam Awake, comfortable, no acute distress Examination of the heart S1 and S2 Examination lungs decreased breath sounds at the bases Abdomen is soft nontender, distended Examination lower extremities shows trace edema bilaterally [employer] exam grossly intact - Labs CBC & Chem 7: 10/02/22 04:26 10/04/22 06:11 Labs: Abnormal Lab Results - Last 24 Hours (Table) 10/04/22 10/04/22 Range/Units 06:11 06:11 Sodium 128 L (135-145) mmol/L Carbon Dioxide 19.3 L (20.0-27.5) mmol/L Est GFR (CKD-EPI)AfAm 39.6 L (60.0-200.0) Est GFR (CKD-EPI)NonAf 34.2 L (60.0-200.0) Ammonia 32 H (<30) umol/L Microbiology - Last 24 Hours (Table) 10/02/22 11:30 Blood Culture - Preliminary Blood No Growth after 48 hours Assessment and Plan Assessment: 1. Hyponatremia. Hypervolemic with ascites. Sodium level 125. Receiving Samsca daily for the last 3-4 days. No urine retention noted. Urine sodium less than 20 and urine osmolality 366 dated 09/19/2022. Cortisol level 9.2. TSH 6 with normal free T4 dated 09/18/2022. 2. Liver cirrhosis. 3. Ascites status post paracentesis with 6.1 L drained 09/21/2022; 5.9 L drained 09/28/2022. 4. Hypokalemia from poor intake and GI losses. Replaced. Better. 5. Hypomagnesemia from poor intake and GI losses. Improved. 6. Hypotension with cortisol level at 9.2 and 11.2. Maintained on midodrine. Repeat blood cultures from 09/20/2022 were negative. Add Cortef 7. Coagulase negative staph bacteremia noted on blood cultures from 09/18/2022 Plan: Add Cortef Hold Lasix
--- NOTE | 2022-10-04 14:55 | P.PN ---
Subjective Progress Note Date: 10/04/22 Principal diagnosis: left foot wound and a positive blood culture Patient is a 71 year old female with multiple comorbidity patient did have alcohol liver disease/cirrhosis with multiple admission to the hospital for ascites and requiring paracentesis last admission was back in June with the patient did require paracentesis 2 during that admission patient also develop swelling to the left foot area patient did have a CT of the foot that was suggestive mostly hematoma no evidence of any abscess , patient presented to hospital with abdominal distention worsening ascites and need for paracentesis she did have a positive blood culture and a nonhealing wound to the left foot with a positive culture , the patient did have a repeat paracentesis done on 09/28/2022 with removal of 5.9 L straw-colored fluid on today's evaluation that is 10/04/2022, the patient denies any fever or chills, the patient is breathing comfortably on room air. The patient denies chest pain shortness of breath or cough abdominal pain is currently controlled and no significant pain to the left foot wound area Objective - Vital Signs Vital signs: Vital Signs Temp 98.5 F 10/04/22 07:40 Pulse 87 10/04/22 07:40 Resp 16 10/04/22 07:40 BP 96/59 10/04/22 07:40 Pulse Ox 97 10/04/22 07:40 FiO2 Intake & Output 10/03/22 10/04/22 10/04/22 18:59 06:59 18:59 Output Total 706 Balance -706 Output: Post Void Residual 706 Other: Voiding Method Diaper Diaper Incontinent Incontinent # Voids 1 # Bowel Movements 1 1 - Exam GENERAL DESCRIPTION: An elderly female lying in bed in no distress RESPIRATORY SYSTEM: Unlabored breathing , decreased breath sounds at bases HEART: S1 S2 regular rate and rhythm , ABDOMEN: Soft , abdominal distention EXTREMITIES: left foot dorsum wound is currently dressed no drainage on dressing - Labs CBC & Chem 7: 10/02/22 04:26 10/04/22 06:11 Labs: Abnormal Lab Results - Last 24 Hours (Table) 10/04/22 10/04/22 Range/Units 06:11 06:11 Sodium 128 L (135-145) mmol/L Carbon Dioxide 19.3 L (20.0-27.5) mmol/L Est GFR (CKD-EPI)AfAm 39.6 L (60.0-200.0) Est GFR (CKD-EPI)NonAf 34.2 L (60.0-200.0) Ammonia 32 H (<30) umol/L Microbiology - Last 24 Hours (Table) 10/02/22 11:30 Blood Culture - Preliminary Blood No Growth after 24 hours Assessment and Plan (1) Abscess of foot Current Visit: Yes Status: Acute Code(s): L02.619 - CUTANEOUS ABSCESS OF UNSPECIFIED FOOT SNOMED Code(s): 373718765 Plan: patient with positive blood culture finalized as coagulase negative staph likely skin contamination, blood culture has been repeated on 09/20/2022 and they have been negative so for 2patient with a nonhealing wound on the dorsum aspect of the left foot with a culture grew MSSA 3Patient left foot cellulitis has shown clinical improvement, patient to continue with oral Keflex for about 7-10 days on discharge and a close outpatient follow-up Time with Patient: Less than 30
[2022-10-04] MEDS ORDERED: HYDROCORTISONE 10 MG TAB PO SCH (21:00)
--- NOTE | 2022-10-05 13:49 | P.PN ---
Subjective Pleasant 71 years old female with multiple medical problems as below. Presents because of c/o swelling to abdomen with short of breath hx liver cirr ohsis lung sounds crackles bilat jaundice eye with wound to left foot. She comes because of abdominal distention and some little dyspnea, no significant chest pain, no coughing, she has some mild periumbilical abdominal pain for the last 10 days, nonspecific, nonradiating She denies any headache dizziness or weakness or numbness, no urinary complaints. No vomiting or diarrhea. Also patient is awake and alert to place and person but she is disoriented to time, she thought she came to the hospital 1 week ago but actually she came last night. Patient was updated Patient also she has a chronic ulcer in her left foot and there is still some discharge but there is no surrounding cellulitis and x-ray looks negative. Patient was recently discharged from this hospital 06/10-07/16 for alcoholic l iver hepatitis and left foot infection and she underwent paracentesis 2. Also she had hypernatremia 106 went up to 125 open discharge Currently presents also with abdominal distention and shortness of breath. She denies a smoking or illicit drugs, first she told me she drinks wine only one cup twice a month but then when I ask her more she said last week she drink twice however she denies daily drinking of alcohol. At baseline she walks with a walker Vitals looks stable, afebrile Sodium 117-118 on admission. Lactic acid elevated 4.1, currently 2.3. Bilirubin elevated 4.9-6.2, last time she was discharged on bilirubin of 3.6 and on 08/14/2022 was 5.7 Mildly elevated liver enzymes, AST 4.9, ALT normal 24. Urine osmolality is 291 Serum alcohol: Less than 10 Foot x-ray showing no fracture dislocation In the emergency room she received Unasyn, ceftriaxone 1 and placed on normal saline 75 mL/h with nephrology been consulted 09/20/2023 pt is still complain from sob and abd distension but improving vital and labs reviewed continue with the same treatment sodium improving on salt tab Objective - Vital Signs Vital signs: Vital Signs Temp 98.3 F 09/20/22 10:40 Pulse 85 09/20/22 11:00 Resp 15 09/20/22 11:00 BP 102/70 09/20/22 11:00 Pulse Ox 95 09/20/22 11:00 FiO2 Intake & Output 09/19/22 09/20/22 09/20/22 18:59 06:59 18:59 Intake Total 620 305 741 Output Total 748 835 9466 Balance 70 150 -5579 Weight 71.5 kg Intake: IV 495 305 415 Albumin Human 25% 50 ml 100 In Empty Bag 1 bag @ 50 mls/hr IVPB Q1H [facility] Rx#: [id number] Ampicillin-Sulbactam 3 gm 100 In Sodium Chloride 0.9% 100 ml @ 200 mls/hr IVPB ONCE STA Rx#:[id number] Sodium Chloride 0.9% 1, 495 305 90 000 ml @ 75 mls/hr IV . [id number] [facility] Rx#:[id number] Vancomycin 1,000 mg In 125 Sodium Chloride 0.9% 250 ml @ 125 mls/hr IVPB Q12H [facility] Rx#:[id number] Intake, IV Titration 125 Amount Ampicillin-Sulbactam 3 gm 100 In Sodium Chloride 0.9% 100 ml @ 200 mls/hr IVPB Q6HR [facility] Rx#:[id number] Vancomycin 1,000 mg In 25 Sodium Chloride 0.9% 250 ml @ 125 mls/hr IVPB Q12H [facility] Rx#:[id number] Blood Product 326 Ffp 24 Cpd Unit 326 [id number] Output: Urine 550 155 220 Uretheral ([place]) 60 Other 6100 Other: Voiding Method Diaper Indwelling Catheter Indwelling Catheter Incontinent External Catheter - Exam -GENERAL: The patient is alert and oriented x2 she knows place and person but she is disoriented about time, not in any acute distress. Well developed, well nourished. HEENT: Pupils are round and equally reacting to light. EOMI. No scleral icterus. No conjunctival pallor. Normocephalic, atraumatic. No pharyngeal erythema. No thyromegaly. CARDIOVASCULAR: S1 and S2 present. No murmurs, rubs, or gallops. PULMONARY: Chest is clear to auscultation, no wheezing or crackles. -ABDOMEN: Soft, nontender, n mildly distended, normoactive bowel sounds. No palpable organomegaly. MUSCULOSKELETAL: No joint swelling or deformity. -EXTREMITIES: No cyanosis, clubbing, or pedal edema. Small puncture ulcer in the left foot with no surrounding cellulitis NEUROLOGICAL: Gross neurological examination did not reveal any focal deficits. SKIN: No rashes. no petechiae. - Labs CBC & Chem 7: 10/02/22 04:26 10/04/22 06:11 Labs: Abnormal Lab Results - Last 24 Hours (Table) 09/19/22 09/19/22 09/19/22 Range/Units 08:35 14:33 14:33 RBC (3.80-5.40) m/uL Hgb (11.4-16.0) gm/dL Hct (34.0-46.0) % MCV (80.0-100.0) fL Plt Count (150-450) k/uL PT (9.0-12.0) sec INR (<1.2) Sodium 121 L (137-145) mmol/L Chloride (98-107) mmol/L Carbon Dioxide (22-30) mmol/L Glucose (74-99) mg/dL Plasma Lactic Acid Julio Cesar 4.4 H* (0.7-2.0) mmol/L Calcium (8.4-10.2) mg/dL Total Bilirubin (0.2-1.3) mg/dL AST (14-36) U/L Total Protein (6.3-8.2) g/dL Albumin (3.5-5.0) g/dL Ur Random Sodium <20 L (40-220) mmol/L 09/19/22 09/19/22 09/20/22 Range/Units 14:33 20:07 06:00 RBC 3.18 L (3.80-5.40) m/uL Hgb 11.0 L (11.4-16.0) gm/dL Hct 32.0 L (34.0-46.0) % MCV 100.6 H (80.0-100.0) fL Plt Count 116 L (150-450) k/uL PT 19.4 H (9.0-12.0) sec INR 2.0 H (<1.2) Sodium 123 L (137-145) mmol/L Chloride (98-107) mmol/L Carbon Dioxide (22-30) mmol/L Glucose (74-99) mg/dL Plasma Lactic Acid Julio Cesar (0.7-2.0) mmol/L Calcium (8.4-10.2) mg/dL Total Bilirubin (0.2-1.3) mg/dL AST (14-36) U/L Total Protein (6.3-8.2) g/dL Albumin (3.5-5.0) g/dL Ur Random Sodium (40-220) mmol/L 09/20/22 09/20/22 09/20/22 Range/Units 06:00 06:00 11:50 RBC (3.80-5.40) m/uL Hgb (11.4-16.0) gm/dL Hct (34.0-46.0) % MCV (80.0-100.0) fL Plt Count (150-450) k/uL PT 19.8 H (9.0-12.0) sec INR 2.0 H (<1.2) Sodium 118 L* 119 L* (137-145) mmol/L Chloride 93 L (98-107) mmol/L Carbon Dioxide 19 L (22-30) mmol/L Glucose 108 H (74-99) mg/dL Plasma Lactic Acid Juloi Cesar (0.7-2.0) mmol/L Calcium 7.4 L (8.4-10.2) mg/dL Total Bilirubin 4.4 H (0.2-1.3) mg/dL AST 43 H (14-36) U/L Total Protein 4.8 L (6.3-8.2) g/dL Albumin 2.0 L (3.5-5.0) g/dL Ur Random Sodium (40-220) mmol/L Microbiology - Last 24 Hours (Table) 09/18/22 16:20 Blood Culture Gram Stain - Final Blood Blood Culture - Final Coagulase Negative Staph 09/18/22 16:05 Blood Culture Gram Stain - Preliminary Blood 09/18/22 16:05 Blood Culture - Final Blood 09/18/22 16:03 Gram Stain - Preliminary Foot - Left Wound Culture - Preliminary Presumptive Staph aureus 09/18/22 16:20 Blood Culture - Final Blood
--- NOTE | 2022-10-06 11:18 | P.DS ---
Providers Date of admission: 09/18/22 17:28 Expected date of discharge: 10/04/22 Attending physician: Corona Jacinto Consults: 09/18/22 17:56 Consult Physician Stat Consulting Provider: Margie Connolly Consult Reason/Comments: Sodium 118 Do you want consulting provider notified?: Yes 09/19/22 09:03 Consult Physician Urgent Consulting Provider: Tez Beckman Consult Reason/Comments: icu management, sever hyponatremia Do you want consulting provider notified?: Yes 09/19/22 14:25 Consult Physician Urgent Consulting Provider: Mike Bishop Consult Reason/Comments: + BC Do you want consulting provider notified?: Yes Primary care physician: Pearl Stoner Hospital Course: Final diagnosis De-Compensated alcoholic liver disease with possible cirrhosis with ascites and jaundice. s/ p paracentesis Post paracentesis hypotension. Status post albumin dose and was requiring pressor support. Currently off pressors. Started on midodrine. Hyponatremia, Hypervolemia and also related to alcohol use disorder Elevated lactic acid Left foot cellulitis with nonhealing wound COPD, no acute exacerbation History of GERD Hypertension Hyperlipidemia History of rheumatoid arthritis Full Code Discharge disposition Patient is being discharged in a stable condition with guarded prognosis to home. Patient will follow-up with Dr. Stoner in the outpatient setting upon discharge. Patient is to follow-up with nephrology and GI as well as scheduled. Patient is continued on oral Keflex for 1 week to complete the course. Recommend follow-up labs and close outpatient follow-up with primary care provider in the next 2 days. Total time taken is greater than 35 minutes. Hospital course This is a 71-year-old female who was recently admitted with ascites and hyponatremia along with left foot cellulitis of a nonhealing wound. Multiple medical consultations following and patient did briefly stay in ICU due to hypotension requiring pressor support. Patient with significant alcoholic liver disease and cirrhosis requiring paracentesis 2 during this admission. Encourage the patient follow-up with nephrology along with GI and primary care provider Dr. Stoner this week. Patient is extremely high risk for multiple readmissions and noncompliance of medications. Patient is to take lactulose once to twice a day to maintain 2-3 loose bowel movements as ammonia levels remain slightly elevated. Patient would likely benefit from routine paracentesis for palliative. Patient with continued hyponatremia after multiple doses of Samsca with nephrology following recommend close outpatient follow-up. Prescriptions provided for repeat labs in the next few days. Patient has been cleared by consultations for discharge home. Currently no reports of chest pain, shortness of breath, or palpitations. Patient is afebrile. No reports of nausea or vomiting and patient is tolerating diet. Patient will be discharged home and extremely guarded prognosis. Again patient is high risk for multiple hospitalizations and readmissions due to her significant comorbidities. Physical exam: Gen: This is a 71-year-old female who is awake, alert and oriented 2-3, well- developed, well-nourished, elderly-appearing female HEENT: Head is atraumatic, normocephalic. Pupils equal, round. Sclerae is anicteric. NECK: Supple. No JVD. No lymphadenopathy. No thyromegaly. LUNGS: Diminished breath sounds bilaterally with no wheezes or rhonchi. No intercostal retractions. HEART: S1, S2 are muffled ABDOMEN: Soft. Obese distended although soft on palpation Bowel sounds are present. No masses. No tenderness. EXTREMITIES: No pedal edema. No calf tenderness. Left foot dressing is dry and intact NEUROLOGICAL: Patient is awake, alert and oriented x3. Cranial nerves 2 through 12 are grossly intact. Please refer to medication reconciliation sheet for a list of medications. The impression and plan of care has been dictated by Bee Pichardo, Nurse Practitioner as directed. MD Milad I have performed a history and examination and MDM of this patient, discussed the same with the dictator, and agree with the dictator's assessment and plan as written ,documented as a scribe. Based on total visit time, I have performed more than 50% of the visit. Patient Condition at Discharge: Fair Plan - Discharge Summary Discharge Rx Participant: Yes New Discharge Prescriptions: New Acetaminophen Tab [Tylenol] 650 mg PO Q4HR PRN tab PRN Reason: Fever And/ Or Pain Cephalexin [Keflex] 500 mg PO TID 7 Days #21 cap Metoprolol Tartrate [Lopressor] 12.5 mg PO BID 30 Days #60 tab Continue [place]-3 Fatty Acids/Fish Oil [Fish Oil 1,000 mg Softgel] 3 cap PO DAILY Torsemide [Demadex] 20 mg PO DAILY tab Magnesium Hydroxide [Milk of Magnesia] 2,400 mg PO Q3D Midodrine HCl [ProAmatine] 10 mg PO TID Mag Hydrox/Aluminum Hyd/Simeth [Mylanta Maximum Strength Liq] 10 - 20 ml PO QID PRN PRN Reason: Constipation Potassium Chloride ER [K-Dur 20] 20 meq PO DAILY Metoclopramide [Reglan] 5 mg PO AC-TID Spironolactone [Aldactone] 25 mg PO DAILY tab Folic Acid 1 mg PO DAILY tab Simvastatin 40 mg PO HS Milk Thistle 150 mg PO DAILY Cyanocobalamin (Vitamin B-12) [Vitamin B-12] 1,000 mcg PO DAILY Pantoprazole [Protonix] 40 mg PO DAILY traMADol HCl [Ultram] 50 mg PO Q8H PRN PRN Reason: Pain Multivitamins, Thera [Multivitamin (formulary)] 1 tab PO DAILY Lactulose [Cephulac] 20 gm PO DAILY PRN #0 PRN Reason: Constipation Discontinued lisinopriL [Prinivil] 20 mg PO DAILY Discharge Medication List [place]-3 Fatty Acids/Fish Oil [Fish Oil 1,000 mg Softgel] 3 cap PO DAILY 06/10/19 [History] Folic Acid 1 mg PO DAILY tab 07/16/22 [Rx] Spironolactone [Aldactone] 25 mg PO DAILY tab 07/16/22 [Rx] Torsemide [Demadex] 20 mg PO DAILY tab 07/16/22 [Rx] Cyanocobalamin (Vitamin B-12) [Vitamin B-12] 1,000 mcg PO DAILY 08/30/22 [History] Mag Hydrox/Aluminum Hyd/Simeth [Mylanta Maximum Strength Liq] 10 - 20 ml PO QID PRN 08/30/22 [History] Magnesium Hydroxide [Milk of Magnesia] 2,400 mg PO Q3D 08/30/22 [History] Metoclopramide [Reglan] 5 mg PO AC-TID 08/30/22 [History] Midodrine HCl [ProAmatine] 10 mg PO TID 08/30/22 [History] Milk Thistle 150 mg PO DAILY 08/30/22 [History] Pantoprazole [Protonix] 40 mg PO DAILY 08/30/22 [History] Potassium Chloride ER [K-Dur 20] 20 meq PO DAILY 08/30/22 [History] Simvastatin 40 mg PO HS 08/30/22 [History] traMADol HCl [Ultram] 50 mg PO Q8H PRN 08/30/22 [History] Multivitamins, Thera [Multivitamin (formulary)] 1 tab PO DAILY 09/18/22 [History] Acetaminophen Tab [Tylenol] 650 mg PO Q4HR PRN tab 10/04/22 [Rx] Cephalexin [Keflex] 500 mg PO TID 7 Days #21 cap 10/04/22 [Rx] Lactulose [Cephulac] 20 gm PO DAILY PRN #0 10/04/22 [Rx] Metoprolol Tartrate [Lopressor] 12.5 mg PO BID 30 Days #60 tab 10/04/22 [Rx] Follow up Appointment(s)/Referral(s): Margie Connolly MD [STAFF PHYSICIAN] - 1 Week (office is stating not reachable at this time Please call to schedule appointment ) Juani Tejada MD [STAFF PHYSICIAN] - 11/06/22 4:00 pm [facility] [NON-STAFF] - 1-2 Days Pearl Stoner MD [Primary Care Provider] - 10/08/22 9:00 am Ambulatory/Diagnostic Orders: Basic Metabolic Panel [LAB.AMB] Time Frame: 3 Days, Location: None Selected Patient Instructions/Handouts: Abscess (GEN), Ascites (DC) Activity/Diet/Wound Care/Special Instructions: Activity Limited until follow-up Follow-up with primary care provider on discharge this week Follow-up with nephrology outpatient Continue taking medications as prescribed Repeat labs in the next few days Recommend taking lactulose daily due to elevated ammonia level Continue antibiotics until finished Follow-up with GI outpatient to discuss possible scheduled paracentesis Discharge Disposition: HOME WITH HOME HEALTH SERVICES
== END 2022-10-04 17:16 | disposition home health service (06) | DRG 432 ==
LOC: EC 14:32 → 4SSUR 17:28 → 3SCARD 17:52 → 2SICU 20:02 → 4SSUR 09-25 05:27
PROVIDERS: ADMIT Hospitalist; ATTEND Hospitalist
PROC: 0W9G3ZZ Drainage of Peritoneal Cavity, Percutaneous Approach (ICD-10-PCS; principal; 2022-09-20)
PROC: 30233K1 Transfusion of Nonautologous Frozen Plasma into Peripheral Vein, Percutaneous Approach (ICD-10-PCS; 2022-09-20)
PROC: 3E043XZ Introduction of Vasopressor into Central Vein, Percutaneous Approach (ICD-10-PCS; 2022-09-21)
PROC: 0W9G3ZZ Drainage of Peritoneal Cavity, Percutaneous Approach (ICD-10-PCS; 2022-09-28)
DX: K70.31 Alcoholic cirrhosis of liver with ascites (principal); E43 Unspecified severe protein-calorie malnutrition; E87.1 Hypo-osmolality and hyponatremia; E87.20 Acidosis, unspecified; J98.11 Atelectasis; K76.6 Portal hypertension; L02.612 Cutaneous abscess of left foot; L03.116 Cellulitis of left lower limb; F10.21 Alcohol dependence, in remission; D53.9 Nutritional anemia, unspecified; Z68.25 Body mass index [BMI] 25.0-25.9, adult; E78.5 Hyperlipidemia, unspecified; E83.42 Hypomagnesemia; E86.1 Hypovolemia; E87.6 Hypokalemia; E87.70 Fluid overload, unspecified; I10 Essential (primary) hypertension; I95.9 Hypotension, unspecified; J44.9 Chronic obstructive pulmonary disease, unspecified; K21.9 Gastro-esophageal reflux disease without esophagitis; K72.10 Chronic hepatic failure without coma; M06.9 Rheumatoid arthritis, unspecified; L97.529 Non-pressure chronic ulcer of other part of left foot with unspecified severity; R79.1 Abnormal coagulation profile; Z86.19 Personal history of other infectious and parasitic diseases; Z79.899 Other long term (current) drug therapy; Z80.8 Family history of malignant neoplasm of other organs or systems; Z82.49 Family history of ischemic heart disease and other diseases of the circulatory system; Z87.891 Personal history of nicotine dependence; Z90.721 Acquired absence of ovaries, unilateral; Z28.310 Unvaccinated for COVID-19; Z28.21 Immunization not carried out because of patient refusal
CPT/HCPCS: 36415; 49083; 71045; 76705; 80048; 80053; 80320; 82042; 82140; 82150; 82533; 82570; 83605; 83690; 83735; 83930; 83935; 84132; 84157; 84295; 84300; 84439; 84443; 85025; 85027; 85610; 86850; 86900; 86901; 87040; 87070; 87075; 87077; 87186; 87205; 89050; 93922; 93923; 96361; 96365; 96367; 99285